=== PATIENT | female | born 1950 | race Caucasian/White ===

== ENCOUNTER → 2016-08-25 | Outpatient (CLI) | payer MEDICARE, MEDICAID | LOC: RAD 16:57 | PROVIDERS: ATTEND Internal Medicine | DX: M26.609 Unspecified temporomandibular joint disorder, unspecified side (principal) | CPT/HCPCS: 70110 ==

== ENCOUNTER 2016-08-26 09:35 | Emergency (ER) | payer MEDICARE, MEDICAID ==
[2016-08-26] MEDS ORDERED: KETOROLAC TROMETHAMINE 60 MG/2 ML SDV IM ONE (11:24)
--- NOTE | 2016-08-26 11:48 | ER Document Report ---
HPI - HPI Patient complains to provider of: TMJ pain Onset: Last week Onset/Duration: Persistent Quality of pain: Sharp Pain Level: 4 Context: Patient complains of right-sided jaw TMJ pain for the past week. Patient saw her primary doctor for this complaint recently had an outpatient x-ray on [place]. [place] any new injury. Patient states that her doctor has taken her off of her Tylenol with Codeine, and previously took her off hydrocodone as well as Percocet. Patient is requesting a Toradol injection, as these have helped her pain in the past. Associated Symptoms: Other - Right jaw pain Exacerbated by: Movement Relieved by: Denies Similar symptoms previously: Yes Recently seen / treated by doctor: Yes - ROS ROS below otherwise negative: Yes Systems Reviewed and Negative: Yes All other systems reviewed and negative - CONSTITUTIONAL Constitutional: DENIES: Fever, Chills - EENT Notes: Right TMJ pain - NEURO Neurology: DENIES: Weakness - CARDIOVASCULAR Cardiovascular: DENIES: Chest pain - RESPIRATORY Respiratory: DENIES: Coughing - GASTROINTESTINAL Gastrointestinal: DENIES: Patient vomiting - REPRODUCTIVE Reproductive: DENIES: : - MUSCULOSKELETAL Musculoskeletal: DENIES: Extremity pain, Back Pain, Neck Pain - DERM Skin Color: Normal Skin Problems: None Past Medical History - General Information source: Patient - Social History Smoking Status: Never Smoker Frequency of alcohol use: None Drug Abuse: None Family History: Arthritis, CAD, CVA, DM, Hyperlipidemia, Hypertension, Malignancy, Thyroid Disfunction Patient has suicidal ideation: No Patient has homicidal ideation: No - Past Medical History Cardiac Medical History: Reports: Hx Hypertension, Hx Peripheral Vascular Disease Denies: Hx Congestive Heart Failure, Hx Coronary Artery Disease, Hx Heart Attack Pulmonary Medical History: Reports: Hx Asthma Denies: Hx Bronchitis, Hx COPD, Hx Pneumonia, Hx Tuberculosis Neurological Medical History: Denies: Hx Cerebrovascular Accident, Hx Seizures GI Medical History: Reports: Hx Crohn's Disease, Hx Diverticulitis, Hx Gastroesophageal Reflux Disease, Hx Hiatal Hernia, Hx Irritable Bowel, Hx Ulcer. Denies: Hx Hepatitis Musculoskeltal Medical History: Reports Hx Arthritis - rheumatoid, DDD, Reports Hx Musculoskeletal Deformity, Reports Hx Musculoskeletal Trauma Psychiatric Medical History: Reports: Hx Anxiety, Hx Depression Infectious Medical History: Denies: Hx Hepatitis Past Surgical History: Reports: Hx Abdominal Surgery - small intestine removal, Hx Appendectomy, Hx Bowel Surgery - small intestine, Hx Breast Surgery - biopsy , Hx Hysterectomy, Hx Neurologic Surgery - brain tumor removed, Hx Tonsillectomy. Denies: Hx Mastectomy, Hx Open Heart Surgery, Hx Pacemaker - Immunizations Immunizations up to date: Yes Hx Diphtheria, Pertussis, Tetanus Vaccination: Yes - 09/2010 Hx Pneumococcal Vaccination: 08/24/10 Vertical Provider Document - CONSTITUTIONAL Agree With Documented VS: Yes Exam Limitations: No Limitations General Appearance: WD/WN, No Apparent Distress - INFECTION CONTROL TRAVEL OUTSIDE OF THE [place] IN LAST 30 DAYS: No - HEENT HEENT: Atraumatic, Normocephalic Notes: Tenderness with palpation of right TMJ joint, no crepitus, no concern for dislocation. No tenderness with dental caries. - NECK Neck: Normal Inspection, Supple. negative: Lymphadenopathy-Left, Lymphadenopathy-Right - RESPIRATORY Respiratory: Breath Sounds Normal, No Respiratory Distress O2 Sat by Pulse Oximetry: 100 - CARDIOVASCULAR Cardiovascular: Regular Rate, Regular Rhythm, No Murmur - BACK Back: Normal Inspection - MUSCULOSKELETAL/EXTREMETIES Musculoskeletal/Extremeties: MAEW - NEURO Level of Consciousness: Awake, Alert, Appropriate Motor/Sensory: No Motor Deficit - DERM Integumentary: Warm, Dry, No Rash Course - Vital Signs Vital signs: Temp Pulse Resp BP Pulse Ox 97.3 F 59 L 16 124/68 100 08/26/16 09:53 08/26/16 09:53 08/26/16 09:53 08/26/16 09:53 08/26/16 09:53 Discharge - Discharge Clinical Impression: TMJ arthralgia Qualifiers: Laterality: right Qualified Code(s): M26.621 - Arthralgia of right temporomandibular joint Condition: Stable Disposition: HOME, SELF-CARE Instructions: Temporomandibular Joint Syndrome ([facility]), Toradol Injection ([facility]) Additional Instructions: Return immediately for any new or worsening symptoms Followup with your primary care provider, call tomorrow to make a followup appointment Soft diet Referrals: ARACELI CORTEZ MD [Primary Care Provider] - Follow up tomorrow
[2016-08-26 12:25] VITALS: BP 124/85
== END 2016-08-26 11:58 | disposition home or self-care (01) ==
LOC: ER 09:35
DX: M26.621 Arthralgia of right temporomandibular joint (principal); R68.84 Jaw pain; Z79.899 Other long term (current) drug therapy
CPT/HCPCS: 99283; 96372; J1885

== ENCOUNTER 2016-08-27 13:47 | Emergency (ER) | payer MEDICAID, MEDICARE ==
[2016-08-27 14:07] VITALS: BP 143/67
--- NOTE | 2016-08-27 14:07 | ER Document Report ---
ED Medical Screen (RME) - General Chief Complaint: Headache Stated Complaint: INJECTION Time seen by provider: 14:04 Mode of Arrival: Ambulatory Information source: Patient Notes: 65 yo female presents to ed for chronic pain, headache chronic, achy all over TRAVEL OUTSIDE OF THE [place] IN LAST 30 DAYS: No - HPI Onset: Other - chronic Onset/Duration: Persistent Quality of pain: Sharp Severity: Moderate Pain Level: 3 Associated Symptoms: Headache, Other - body achesa Exacerbated by: Denies Relieved by: Denies Similar symptoms previously: Yes Recently seen / treated by doctor: Yes - Related Data Smoking: Non-smoker Frequency of alcohol use: None Drug Abuse: None Allergies/Adverse Reactions: Penicillins Allergy (Severe, Verified 08/15/16 08:46) Anaphylaxis Sulfa (Sulfonamide Antibiotics) Allergy (Intermediate, Verified 08/15/16 08:46) iching, nausea ciprofloxacin [From Cipro] Allergy (Mild, Verified 08/15/16 08:46) itching, nausea meperidine HCl [From Demerol] Allergy (Mild, Verified 08/15/16 08:46) heart palpitations Past Medical History - Past Medical History Cardiac Medical History: Reports: Hx Hypertension, Hx Peripheral Vascular Disease Denies: Hx Congestive Heart Failure, Hx Coronary Artery Disease, Hx Heart Attack Pulmonary Medical History: Reports: Hx Asthma Denies: Hx Bronchitis, Hx COPD, Hx Pneumonia, Hx Tuberculosis Neurological Medical History: Denies: Hx Cerebrovascular Accident, Hx Seizures GI Medical History: Reports: Hx Crohn's Disease, Hx Diverticulitis, Hx Gastroesophageal Reflux Disease, Hx Hiatal Hernia, Hx Irritable Bowel, Hx Ulcer. Denies: Hx Hepatitis Musculoskeltal Medical History: Reports Hx Arthritis - rheumatoid, DDD, Reports Hx Musculoskeletal Deformity, Reports Hx Musculoskeletal Trauma Psychiatric Medical History: Reports: Hx Anxiety, Hx Depression Infectious Medical History: Denies: Hx Hepatitis Past Surgical History: Reports: Hx Abdominal Surgery - small intestine removal, Hx Appendectomy, Hx Bowel Surgery - small intestine, Hx Breast Surgery - biopsy , Hx Hysterectomy, Hx Neurologic Surgery - brain tumor removed, Hx Tonsillectomy. Denies: Hx Mastectomy, Hx Open Heart Surgery, Hx Pacemaker - Immunizations Immunizations up to date: Yes Hx Diphtheria, Pertussis, Tetanus Vaccination: Yes - 09/2010
--- NOTE | 2016-08-27 14:27 | ER Document Report ---
HPI - HPI Pain Level: 3 - REPRODUCTIVE Reproductive: DENIES: : - DERM Skin Color: Normal Past Medical History - General Information source: Patient - Social History Smoking Status: Never Smoker Chew tobacco use (# tins/day): No Frequency of alcohol use: None Drug Abuse: None Family History: Arthritis, CAD, CVA, DM, Hyperlipidemia, Hypertension, Malignancy, Thyroid Disfunction Patient has suicidal ideation: No Patient has homicidal ideation: No - Past Medical History Cardiac Medical History: Reports: Hx Hypertension, Hx Peripheral Vascular Disease Denies: Hx Congestive Heart Failure, Hx Coronary Artery Disease, Hx Heart Attack Pulmonary Medical History: Reports: Hx Asthma Denies: Hx Bronchitis, Hx COPD, Hx Pneumonia, Hx Tuberculosis Neurological Medical History: Denies: Hx Cerebrovascular Accident, Hx Seizures GI Medical History: Reports: Hx Crohn's Disease, Hx Diverticulitis, Hx Gastroesophageal Reflux Disease, Hx Hiatal Hernia, Hx Irritable Bowel, Hx Ulcer. Denies: Hx Hepatitis Musculoskeltal Medical History: Reports Hx Arthritis - rheumatoid, DDD, Reports Hx Musculoskeletal Deformity, Reports Hx Musculoskeletal Trauma Psychiatric Medical History: Reports: Hx Anxiety, Hx Depression Infectious Medical History: Denies: Hx Hepatitis Past Surgical History: Reports: Hx Abdominal Surgery - small intestine removal, Hx Appendectomy, Hx Bowel Surgery - small intestine, Hx Breast Surgery - biopsy , Hx Hysterectomy, Hx Neurologic Surgery - brain tumor removed, Hx Tonsillectomy. Denies: Hx Mastectomy, Hx Open Heart Surgery, Hx Pacemaker - Immunizations Immunizations up to date: Yes Hx Diphtheria, Pertussis, Tetanus Vaccination: Yes - 09/2010 Hx Pneumococcal Vaccination: 08/24/10 Vertical Provider Document - INFECTION CONTROL TRAVEL OUTSIDE OF THE [place] IN LAST 30 DAYS: No - RESPIRATORY O2 Sat by Pulse Oximetry: 100 Course - Vital Signs Vital signs: Temp Pulse Resp BP Pulse Ox 98.1 F 70 16 143/67 H 100 08/27/16 14:05 08/27/16 14:05 08/27/16 14:05 08/27/16 14:05 08/27/16 14:05
--- NOTE | 2016-08-27 14:29 | ER Document Report ---
ED Eye Complaint - General Chief Complaint: Other Stated Complaint: INJECTION Time seen by provider: 14:28 Mode of Arrival: Ambulatory Information source: Patient Notes: 65-year-old female complaining of blurred vision to her right eye and right TMJ pain. She saw Dr. Radha Palacio in his office today who recommended coming to the emergency room and he wrote on a prescription that the patient needs an injection.. She wants to know what we are going to due with her inability to see out of her right eye. TRAVEL OUTSIDE OF THE [place] IN LAST 30 DAYS: No - Related Data Allergies/Adverse Reactions: Penicillins Allergy (Severe, Verified 08/27/16 14:04) Anaphylaxis Sulfa (Sulfonamide Antibiotics) Allergy (Intermediate, Verified 08/27/16 14:04) iching, nausea ciprofloxacin [From Cipro] Allergy (Mild, Verified 08/27/16 14:04) itching, nausea meperidine HCl [From Demerol] Allergy (Mild, Verified 08/27/16 14:04) heart palpitations Past Medical History - General Information source: Patient - Social History Smoking Status: Never Smoker Chew tobacco use (# tins/day): No Frequency of alcohol use: None Drug Abuse: None Lives with: Alone Family History: Arthritis, CAD, CVA, DM, Hyperlipidemia, Hypertension, Malignancy, Thyroid Disfunction Patient has suicidal ideation: No Patient has homicidal ideation: No - Past Medical History Cardiac Medical History: Reports: Hx Hypertension, Hx Peripheral Vascular Disease Pulmonary Medical History: Reports: Hx Asthma GI Medical History: Reports: Hx Crohn's Disease, Hx Diverticulitis, Hx Gastroesophageal Reflux Disease, Hx Hiatal Hernia, Hx Irritable Bowel, Hx Ulcer Musculoskeltal Medical History: Reports Hx Arthritis - rheumatoid, DDD, Reports Hx Musculoskeletal Deformity, Reports Hx Musculoskeletal Trauma Psychiatric Medical History: Reports: Hx Anxiety, Hx Depression Past Surgical History: Reports: Hx Abdominal Surgery - small intestine removal, Hx Appendectomy, Hx Bowel Surgery - small intestine, Hx Breast Surgery - biopsy , Hx Hysterectomy, Hx Neurologic Surgery - brain tumor removed, Hx Tonsillectomy - Immunizations Immunizations up to date: Yes Hx Diphtheria, Pertussis, Tetanus Vaccination: Yes - 09/2010 Hx Pneumococcal Vaccination: 08/24/10 Review of Systems - Review of Systems Constitutional: No symptoms reported EENT: See HPI Cardiovascular: No symptoms reported Respiratory: No symptoms reported Gastrointestinal: No symptoms reported Genitourinary: No symptoms reported Female Genitourinary: No symptoms reported Musculoskeletal: See HPI Skin: No symptoms reported Hematologic/Lymphatic: No symptoms reported Neurological/Psychological: No symptoms reported Physical Exam - Vital signs Vitals: Temp Pulse Resp BP Pulse Ox 98.1 F 70 16 143/67 H 100 08/27/16 14:05 08/27/16 14:05 08/27/16 14:05 08/27/16 14:05 08/27/16 14:05 Interpretation: Normal - General General appearance: Appears well, Alert In distress: None - HEENT Head: Normocephalic, Atraumatic Eyes: Normal Conjunctiva: Normal. No: Injected Cornea: No: Flourescein stain uptake, Opacified Extraocular movements intact: Yes Pupils: PERRL Anterior chamber: Normal Nerve palsy: No Neck: Supple Notes: tender right TMJ joint - Respiratory Respiratory status: No respiratory distress Chest status: Nontender Breath sounds: Normal Chest palpation: Normal - Cardiovascular Rhythm: Regular Heart sounds: Normal auscultation Murmur: No - Abdominal Inspection: Normal Distension: No distension Bowel sounds: Normal Tenderness: Nontender Organomegaly: No organomegaly - Back Back: Normal, Nontender - Extremities General upper extremity: Normal inspection, Nontender, Normal color, Normal ROM , Normal temperature General lower extremity: Normal inspection, Nontender, Normal color, Normal ROM , Normal temperature, Normal weight bearing. No: Guille's sign - Neurological Neuro grossly intact: Yes Cognition: Normal Orientation: AAOx4 Ji Coma Scale Eye Opening: Spontaneous Ji Coma Scale Verbal: Oriented Ji Coma Scale Motor: Obeys Commands Excello Coma Scale Total: 15 Speech: Normal Motor strength normal: LUE, RUE, LLE, RLE Sensory: Normal - Psychological Associated symptoms: Normal affect, Normal mood - Skin Skin Temperature: Warm Skin Moisture: Dry Skin Color: Normal Course - Re-evaluation Re-evalutation: 08/27/16 15:55 Patient states that her vision was starting to come back before she got the Toradol shot. She had 20/200 in the right eye and 20/50 in the left eye. She saw Dr. Chung last week who was a little concerned about her eye pressures but did not start her on any glaucoma medicine at this time. Her Nguyễn-Pen eye pressure on the right eye was 17.95 in the left eye 18.95. I instructed the patient that she needs to call and get an appointment with Dr. Buck next week and not wait until 09/21 which is when her recheck his. Her CT of the head is negative. He states her TMJ pain is relieved with the Toradol. - Vital Signs Vital signs: Temp Pulse Resp BP Pulse Ox 98.1 F 70 16 143/67 H 100 08/27/16 14:05 08/27/16 14:05 08/27/16 14:05 08/27/16 14:05 08/27/16 14:05 Discharge - Discharge Clinical Impression: TMJ arthralgia, right eye decreased vision Condition: Good Disposition: HOME, SELF-CARE Instructions: Temporomandibular Joint Syndrome ([facility]) Additional Instructions: call dr. buck and see him next week for recheck, do not wait until the . to er if worse Referrals: ARACELI CORTEZ MD [Primary Care Provider] - Follow up as needed TYLER BUCK DO [ACTIVE STAFF] - 08/30/16
[2016-08-27] MEDS ORDERED: KETOROLAC TROMETHAMINE 60 MG/2 ML SDV IM ONE (14:34)
[2016-08-27] MEDS ORDERED: FAMOTIDINE 20 MG TABLET PO ONE (16:10)
== END 2016-08-27 16:27 | disposition home or self-care (01) ==
LOC: ER 13:47
DX: H53.8 Other visual disturbances (principal); M26.621 Arthralgia of right temporomandibular joint; I10 Essential (primary) hypertension; J45.909 Unspecified asthma, uncomplicated; Z88.1 Allergy status to other antibiotic agents; Z88.2 Allergy status to sulfonamides; Z88.5 Allergy status to narcotic agent; Z87.892 Personal history of anaphylaxis; Z88.0 Allergy status to penicillin
CPT/HCPCS: 99284; 96372; 70450; J3490; J1885

== ENCOUNTER 2016-08-29 20:34 | Emergency (ER) | payer MEDICARE, MEDICAID ==
[2016-08-29] MEDS ORDERED: DIAZEPAM 5 MG TABLET PO ONE (22:11)
[2016-08-29 22:30] LABS: ABSOLUTE EOSINOPHILS # (AUTO) 0.5 10^3/uL (0.0-0.6); ABSOLUTE LYMPHOCYTES (AUTO) 1.6 10^3/uL (0.5-4.7); ABSOLUTE MONOCYTES (AUTO) 0.6 10^3/uL (0.1-1.4); ABSOLUTE NEUT (AUTO) 5.7 10^3/uL (1.7-8.2); BASOPHILS % (AUTO) 0.6 % (0-2); EOSINOPHILS % (AUTO) 5.4 % (0-6); HEMATOCRIT 38.1 % (36.0-47.0); HEMOGLOBIN 12.9 g/dL (12.0-15.5); HGB HCT DIFFERENCE 0.6; LYMPHOCYTES % (AUTO) 18.9 % (13-45); MEAN CORPUSCULAR HEMOGLOBIN 32.1 pg (27.0-33.4); MEAN CORPUSCULAR HGB CONC 33.9 g/dL (32.0-36.0); MEAN CORPUSCULAR VOLUME 95 fl (80-97); MONOCYTES % (AUTO) 7.1 % (3-13); RED BLOOD COUNT 4.03 10^6/uL (3.72-5.28); RED CELL DISTRIBUTION WIDTH 13.9 % (11.5-14.0); WHITE BLOOD COUNT 8.4 10^3/uL (4.0-10.5)
[2016-08-29 22:50] LABS: ANION GAP 10 (5-19); BLOOD UREA NITROGEN 5 mg/dL (7-20); CALCIUM 9.2 mg/dL (8.4-10.2); CARBON DIOXIDE 24 mmol/L (22-30); CHLORIDE 106 mmol/L (98-107); CREATININE RESULT 0.62 mg/dL (0.52-1.25); GLUCOSE 83 mg/dL (75-110); POTASSIUM 4.2 mmol/L (3.6-5.0); SODIUM 140.2 mmol/L (137-145)
--- NOTE | 2016-08-29 23:10 | ER Document Report ---
ED General - General Chief Complaint: Rectal Bleeding Stated Complaint: RECTAL BLEEDING Notes: Patient is a 65-year-old female well-known to this emergency department who presents for concerns of having a bloody bowel movement just prior to arrival. Patient states that she "has to use my finger to clean out my rectum at least 3- 4 times a day. You have to use these special soft gloves to prevent irritation" . Patient has a very unusual affect and repeatedly tells me the manner in which to perform an appropriate rectal exam on her using gloves that she has brought from home. She notes that she only had one bloody bowel movement just prior to arrival but has a history of the same in the past. She denies any focal abdominal pain. No additional constitutional symptoms. She has not spoken to her primary care physician regarding today's episode. She has not noted that anything seems to trigger today's episode and nothing improves her symptoms. TRAVEL OUTSIDE OF THE [place] IN LAST 30 DAYS: No - HPI Onset: Just prior to arrival Onset/Duration: Sudden Quality of pain: No pain Severity: None Pain Level: Denies Associated symptoms: None Exacerbated by: Denies Relieved by: Denies Similar symptoms previously: Yes Recently seen / treated by doctor: No - Related Data Allergies/Adverse Reactions: Penicillins Allergy (Severe, Verified 08/27/16 14:04) Anaphylaxis Sulfa (Sulfonamide Antibiotics) Allergy (Intermediate, Verified 08/27/16 14:04) iching, nausea ciprofloxacin [From Cipro] Allergy (Mild, Verified 08/27/16 14:04) itching, nausea meperidine HCl [From Demerol] Allergy (Mild, Verified 08/27/16 14:04) heart palpitations Past Medical History - General Information source: Patient - Social History Smoking Status: Never Smoker Frequency of alcohol use: None Drug Abuse: None Lives with: Alone Family History: Arthritis, CAD, CVA, DM, Hyperlipidemia, Hypertension, Malignancy, Thyroid Disfunction - Past Medical History Cardiac Medical History: Reports: Hx Hypertension, Hx Peripheral Vascular Disease Denies: Hx Congestive Heart Failure, Hx Coronary Artery Disease, Hx Heart Attack Pulmonary Medical History: Reports: Hx Asthma Denies: Hx Bronchitis, Hx COPD, Hx Pneumonia, Hx Tuberculosis Neurological Medical History: Denies: Hx Cerebrovascular Accident, Hx Seizures GI Medical History: Reports: Hx Crohn's Disease, Hx Diverticulitis, Hx Gastroesophageal Reflux Disease, Hx Hiatal Hernia, Hx Irritable Bowel, Hx Ulcer. Denies: Hx Hepatitis Musculoskeltal Medical History: Reports Hx Arthritis - rheumatoid, DDD, Reports Hx Musculoskeletal Deformity, Reports Hx Musculoskeletal Trauma Psychiatric Medical History: Reports: Hx Anxiety, Hx Depression Infectious Medical History: Denies: Hx Hepatitis Past Surgical History: Reports: Hx Abdominal Surgery - small intestine removal, Hx Appendectomy, Hx Bowel Surgery - small intestine, Hx Breast Surgery - biopsy , Hx Hysterectomy, Hx Neurologic Surgery - brain tumor removed, Hx Tonsillectomy. Denies: Hx Mastectomy, Hx Open Heart Surgery, Hx Pacemaker - Immunizations Immunizations up to date: Yes Hx Diphtheria, Pertussis, Tetanus Vaccination: Yes - 09/2010 Hx Pneumococcal Vaccination: 08/24/10 Review of Systems - Review of Systems Notes: Constitutional: Negative for fever. HENT: Negative for sore throat. Eyes: Negative for visual changes. Cardiovascular: Negative for chest pain. Respiratory: Negative for shortness of breath. Gastrointestinal: Negative for abdominal pain, vomiting or diarrhea. Positive for a bloody bowel movement Genitourinary: Negative for dysuria. Musculoskeletal: Negative for back pain. Skin: Negative for rash. Neurological: Negative for headaches, weakness or numbness. 10 point ROS negative except as marked above and in HPI. Physical Exam - Vital signs Vitals: Temp Pulse Resp BP Pulse Ox 98.6 F 69 16 117/61 100 08/29/16 23:38 08/29/16 23:38 08/29/16 23:38 08/29/16 23:38 08/29/16 23:38 Interpretation: Normal Notes: PHYSICAL EXAMINATION: GENERAL: Well-appearing, well-nourished and in no acute distress. HEAD: Atraumatic, normocephalic. EYES: Pupils equal round and reactive to light, extraocular movements intact, sclera anicteric, conjunctiva are normal. ENT: nares patent, oropharynx clear without exudates. Moist mucous membranes. NECK: Normal range of motion, supple without lymphadenopathy LUNGS: Breath sounds clear to auscultation bilaterally and equal. No wheezes rales or rhonchi. HEART: Regular rate and rhythm without murmurs ABDOMEN: Soft, nontender, normoactive bowel sounds. No guarding, no rebound. No masses appreciated. Rectal: No blood. Brown stool. No masses on palpation EXTREMITIES: Normal range of motion, no pitting or edema. No cyanosis. NEUROLOGICAL: No focal neurological deficits. Moves all extremities spontaneously and on command. PSYCH: Normal mood, normal affect. SKIN: Warm, Dry, normal turgor, no rashes or lesions noted. Course - Re-evaluation Re-evalutation: 08/30/16 03:51 Patient presents with concerns of rectal bleeding. There is absolutely no blood on her digital rectal exam. Moreover her hemoglobin is completely normal. Unclear if patient has had actually had bleeding given the absence of any blood on rectal examination as well as normal hemoglobin and absence of tachycardia or hypotension. Remainder of her exam is unremarkable. Patient has already been seen in this emergency department 4 times in 2017 and had over 20 visits last year for various pain-related complaints. At this time do not suspect any acute life-threatening pathology and patient was observed here in this emergency department for over 2 hours for any additional bloody bowel movements. At this time will discharge with return precautions and follow-up recommendations. Verbal discharge instructions given a the bedside and opportunity for questions given. Medication warnings reviewed. Patient is in agreement with this plan and has verbalized understanding of return precautions and the need for primary care follow-up in the next 24-72 hours. - Vital Signs Vital signs: Temp Pulse Resp BP Pulse Ox 98.6 F 69 16 117/61 100 08/29/16 23:38 08/29/16 23:38 08/29/16 23:38 08/29/16 23:38 08/29/16 23:38 - Laboratory Result Diagrams: 08/29/16 22:20 08/29/16 22:20 Laboratory results interpreted by me: 08/29/16 22:20 BUN 5 L Discharge - Discharge Clinical Impression: Rectal hemorrhage Condition: Good Disposition: HOME, SELF-CARE Additional Instructions: Please return if you have further rectal bleeding, increased abdominal pain, or any additional concerns. Please follow-up with your primary care physician in the next 1-2 days. Your blood counts are normal today and you had no evidence of bleeding on your rectal exam. Referrals: ARACELI CORTEZ MD [Primary Care Provider] - Follow up as needed
[2016-08-30 00:15] VITALS: BP 117/61
== END 2016-08-29 23:40 | disposition home or self-care (01) ==
LOC: ER 20:34
DX: K62.5 Hemorrhage of anus and rectum (principal); I10 Essential (primary) hypertension; J45.909 Unspecified asthma, uncomplicated; Z88.0 Allergy status to penicillin; Z88.2 Allergy status to sulfonamides; Z88.1 Allergy status to other antibiotic agents; Z88.5 Allergy status to narcotic agent; Z87.19 Personal history of other diseases of the digestive system; Z90.49 Acquired absence of other specified parts of digestive tract
CPT/HCPCS: 99283; 36415; 85025; 80048; A9270

== ENCOUNTER 2016-09-03 18:55 | Emergency (ER) | payer MEDICARE, MEDICAID ==
--- NOTE | 2016-09-03 19:02 | ER Document Report ---
ED Medical Screen (RME) - General Stated Complaint: ANXIETY Mode of Arrival: Medic Information source: Emergency Med Personnel Notes: Patient presents to the ED via EMS for c/o fast heart rate, blue right foot, diverticulitis flare. Upon EMS her arrival patient's heart rate was 114 but decreased to 88 upon placement in the stretcher. EMS reports foot was not blue upon assessment. I greeted and performed a rapid initial assessment of this patient. Comprehensive ED assessment and evaluation of the patient, analysis of test results and completion of the medical decision making process will be conducted by additional ED providers. TRAVEL OUTSIDE OF THE [place] IN LAST 30 DAYS: No - Related Data Allergies/Adverse Reactions: Penicillins Allergy (Severe, Verified 08/27/16 14:04) Anaphylaxis Sulfa (Sulfonamide Antibiotics) Allergy (Intermediate, Verified 08/27/16 14:04) iching, nausea ciprofloxacin [From Cipro] Allergy (Mild, Verified 08/27/16 14:04) itching, nausea meperidine HCl [From Demerol] Allergy (Mild, Verified 08/27/16 14:04) heart palpitations Past Medical History - Past Medical History Cardiac Medical History: Reports: Hx Hypertension, Hx Peripheral Vascular Disease Denies: Hx Congestive Heart Failure, Hx Coronary Artery Disease, Hx Heart Attack Pulmonary Medical History: Reports: Hx Asthma Denies: Hx Bronchitis, Hx COPD, Hx Pneumonia, Hx Tuberculosis Neurological Medical History: Denies: Hx Cerebrovascular Accident, Hx Seizures GI Medical History: Reports: Hx Crohn's Disease, Hx Diverticulitis, Hx Gastroesophageal Reflux Disease, Hx Hiatal Hernia, Hx Irritable Bowel, Hx Ulcer. Denies: Hx Hepatitis Musculoskeltal Medical History: Reports Hx Arthritis - rheumatoid, DDD, Reports Hx Musculoskeletal Deformity, Reports Hx Musculoskeletal Trauma Psychiatric Medical History: Reports: Hx Anxiety, Hx Depression Infectious Medical History: Denies: Hx Hepatitis Past Surgical History: Reports: Hx Abdominal Surgery - small intestine removal, Hx Appendectomy, Hx Bowel Surgery - small intestine, Hx Breast Surgery - biopsy , Hx Hysterectomy, Hx Neurologic Surgery - brain tumor removed, Hx Tonsillectomy. Denies: Hx Mastectomy, Hx Open Heart Surgery, Hx Pacemaker - Immunizations Immunizations up to date: Yes Hx Diphtheria, Pertussis, Tetanus Vaccination: Yes - 09/2010
[2016-09-03 22:49] LABS: ABSOLUTE EOSINOPHILS # (AUTO) 0.5 10^3/uL (0.0-0.6); ABSOLUTE LYMPHOCYTES (AUTO) 1.9 10^3/uL (0.5-4.7); ABSOLUTE MONOCYTES (AUTO) 0.7 10^3/uL (0.1-1.4); ABSOLUTE NEUT (AUTO) 6.3 10^3/uL (1.7-8.2); BASOPHILS % (AUTO) 0.4 % (0-2); EOSINOPHILS % (AUTO) 5.1 % (0-6); HEMOGLOBIN 12.4 g/dL (12.0-15.5); HGB HCT DIFFERENCE 0.2; LYMPHOCYTES % (AUTO) 20.3 % (13-45); MEAN CORPUSCULAR HEMOGLOBIN 32.2 pg (27.0-33.4); MEAN CORPUSCULAR HGB CONC 33.6 g/dL (32.0-36.0); MEAN CORPUSCULAR VOLUME 96 fl (80-97); MONOCYTES % (AUTO) 7.6 % (3-13); RED BLOOD COUNT 3.86 10^6/uL (3.72-5.28); RED CELL DISTRIBUTION WIDTH 13.9 % (11.5-14.0); SEGMENTED NEUTROPHILS % (AUTO) 66.6 % (42-78); WHITE BLOOD COUNT 9.5 10^3/uL (4.0-10.5)
[2016-09-03 22:59] LABS: ALANINE AMINOTRANSFERASE 22 U/L (9-52); ALBUMIN 3.8 g/dL (3.5-5.0); ALKALINE PHOSPHATASE 62 U/L (38-126); ANION GAP 12 (5-19); ASPARTATE AMINO TRANSFERASE 25 U/L (14-36); BILIRUBIN,TOTAL 0.3 mg/dL (0.2-1.3); BLOOD UREA NITROGEN 9 mg/dL (7-20); CALCIUM 9.2 mg/dL (8.4-10.2); CARBON DIOXIDE 26 mmol/L (22-30); CHLORIDE 100 mmol/L (98-107); CREATININE RESULT 0.63 mg/dL (0.52-1.25); GLUCOSE 87 mg/dL (75-110); POTASSIUM 3.9 mmol/L (3.6-5.0); SODIUM 137.8 mmol/L (137-145); TOTAL PROTEIN 6.7 g/dL (6.3-8.2)
--- NOTE | 2016-09-03 23:36 | ER Document Report ---
ED General - General Chief Complaint: Abdominal Pain Stated Complaint: ANXIETY Time seen by provider: 23:35 Mode of Arrival: Medic Information source: Patient TRAVEL OUTSIDE OF THE [place] IN LAST 30 DAYS: No - HPI Patient complains to provider of: right foot blue, elevated heart rate Onset: Just prior to arrival Onset/Duration: Sudden Quality of pain: No pain Associated symptoms: None Exacerbated by: Denies Relieved by: Denies Similar symptoms previously: No Recently seen / treated by doctor: Yes Notes: Patient is a 65-year-old female who is well-known to this emergency room as she presents on nearly a daily basis for various complaints, today's complaint is that her right foot turned blue for approximately half a second, she called EMS to the house and when they arrived they noted her heart rate to be 114, this actually went down to a normal heart rate in the 80s upon placement in the ambulance, she denies any injury or trauma, she denies any pain at the present time, she denies any history of having symptoms like this to her foot previously , symptoms are completely resolved at time of my initial evaluation - Related Data Allergies/Adverse Reactions: Penicillins Allergy (Severe, Verified 08/27/16 14:04) Anaphylaxis Sulfa (Sulfonamide Antibiotics) Allergy (Intermediate, Verified 08/27/16 14:04) iching, nausea ciprofloxacin [From Cipro] Allergy (Mild, Verified 08/27/16 14:04) itching, nausea meperidine HCl [From Demerol] Allergy (Mild, Verified 08/27/16 14:04) heart palpitations Past Medical History - General Information source: Emergency Med Personnel - Social History Smoking Status: Unknown if Ever Smoked Chew tobacco use (# tins/day): No Frequency of alcohol use: None Drug Abuse: None Family History: Arthritis, CAD, CVA, DM, Hyperlipidemia, Hypertension, Malignancy, Thyroid Disfunction Patient has suicidal ideation: No Patient has homicidal ideation: No - Past Medical History Cardiac Medical History: Reports: Hx Hypertension, Hx Peripheral Vascular Disease Denies: Hx Congestive Heart Failure, Hx Coronary Artery Disease, Hx Heart Attack Pulmonary Medical History: Reports: Hx Asthma Denies: Hx Bronchitis, Hx COPD, Hx Pneumonia, Hx Tuberculosis Neurological Medical History: Denies: Hx Cerebrovascular Accident, Hx Seizures Renal/ Medical History: Denies: Hx Peritoneal Dialysis GI Medical History: Reports: Hx Crohn's Disease, Hx Diverticulitis, Hx Gastroesophageal Reflux Disease, Hx Hiatal Hernia, Hx Irritable Bowel, Hx Ulcer. Denies: Hx Hepatitis Musculoskeltal Medical History: Reports Hx Arthritis - rheumatoid, DDD, Reports Hx Musculoskeletal Deformity, Reports Hx Musculoskeletal Trauma Psychiatric Medical History: Reports: Hx Anxiety, Hx Depression Infectious Medical History: Denies: Hx Hepatitis Past Surgical History: Reports: Hx Abdominal Surgery - small intestine removal, Hx Appendectomy, Hx Bowel Surgery - small intestine, Hx Breast Surgery - biopsy , Hx Hysterectomy, Hx Neurologic Surgery - brain tumor removed, Hx Tonsillectomy. Denies: Hx Mastectomy, Hx Open Heart Surgery, Hx Pacemaker - Immunizations Immunizations up to date: Yes Hx Diphtheria, Pertussis, Tetanus Vaccination: Yes - 09/2010 Hx Pneumococcal Vaccination: 08/24/10 Review of Systems - Review of Systems Constitutional: No symptoms reported EENT: No symptoms reported Cardiovascular: See HPI Respiratory: No symptoms reported Gastrointestinal: No symptoms reported Genitourinary: No symptoms reported Female Genitourinary: No symptoms reported Musculoskeletal: No symptoms reported Skin: See HPI Hematologic/Lymphatic: No symptoms reported Neurological/Psychological: No symptoms reported -: Yes All other systems reviewed and negative Physical Exam - Vital signs Vitals: Temp Pulse Resp BP Pulse Ox 98.2 F 90 16 148/84 H 100 09/03/16 23:58 09/03/16 23:58 09/03/16 23:58 09/03/16 23:58 09/03/16 23:58 Interpretation: Normal - General General appearance: Appears well, Alert - HEENT Head: Normocephalic, Atraumatic Eyes: Normal Pupils: PERRL - Respiratory Respiratory status: No respiratory distress Chest status: Nontender Breath sounds: Normal Chest palpation: Normal - Cardiovascular Rhythm: Regular Heart sounds: Normal auscultation Murmur: No - Abdominal Inspection: Normal Distension: No distension Bowel sounds: Normal Tenderness: Nontender Organomegaly: No organomegaly - Back Back: Normal, Nontender - Extremities General upper extremity: Normal inspection, Nontender, Normal color, Normal ROM , Normal temperature General lower extremity: Normal inspection, Nontender, Normal color, Normal ROM , Normal temperature, Normal weight bearing. No: Guille's sign Foot: Other - Examination of right foot is completely normal, brisk capillary refill, 2+ DP pulses, foot is warm and normal color, full range of motion, no tenderness - Neurological Neuro grossly intact: Yes Cognition: Normal Orientation: AAOx4 Ji Coma Scale Eye Opening: Spontaneous [place] Coma Scale Verbal: Oriented [place] Coma Scale Motor: Obeys Commands Ji Coma Scale Total: 15 Speech: Normal Motor strength normal: LUE, RUE, LLE, RLE Sensory: Normal - Psychological Associated symptoms: Anxious, Tangential speech - Skin Skin Temperature: Warm Skin Moisture: Dry Skin Color: Normal Course - Re-evaluation Re-evalutation: 09/04/16 01:44 Patient was discharged with instructions to follow-up with her primary care provider or return if symptoms worsen, patient acknowledges understanding and agreement with this plan - Vital Signs Vital signs: Temp Pulse Resp BP Pulse Ox 98.2 F 90 16 148/84 H 100 09/03/16 23:58 09/03/16 23:58 09/03/16 23:58 09/03/16 23:58 09/03/16 23:58 - Laboratory Result Diagrams: 09/03/16 22:26 09/03/16 22:26 Discharge - Discharge Clinical Impression: Palpitations Condition: Stable Disposition: HOME, SELF-CARE Instructions: Palpitations (Irregular or Rapid Heartrate) (REPLACED BY [facility]) Additional Instructions: Follow up with your primary care provider in one to 2 days. Return to the emergency room immediately if symptoms worsen or any additional concerns.
[2016-09-03 23:58] VITALS: BP 148/84
== END 2016-09-04 | disposition home or self-care (01) ==
LOC: ER 18:55
DX: R00.2 Palpitations (principal); I73.9 Peripheral vascular disease, unspecified; I10 Essential (primary) hypertension; Z88.1 Allergy status to other antibiotic agents; Z88.2 Allergy status to sulfonamides; Z88.5 Allergy status to narcotic agent; Z87.892 Personal history of anaphylaxis; Z88.0 Allergy status to penicillin
CPT/HCPCS: 36415; 80053; 85025; 99285

== ENCOUNTER → 2016-09-07 | Outpatient (CLI) | payer MEDICARE, MEDICAID ==
[2016-09-07 14:45] LABS: ABSOLUTE EOSINOPHILS # (AUTO) 0.4 10^3/uL (0.0-0.6); ABSOLUTE LYMPHOCYTES (AUTO) 1.5 10^3/uL (0.5-4.7); ABSOLUTE MONOCYTES (AUTO) 0.5 10^3/uL (0.1-1.4); ABSOLUTE NEUT (AUTO) 3.5 10^3/uL (1.7-8.2); BASOPHILS % (AUTO) 0.7 % (0-2); EOSINOPHILS % (AUTO) 7.5 % (0-6); HEMOGLOBIN 12.6 g/dL (12.0-15.5); HGB HCT DIFFERENCE -1.2; LYMPHOCYTES % (AUTO) 24.5 % (13-45); MEAN CORPUSCULAR HEMOGLOBIN 31.1 pg (27.0-33.4); MEAN CORPUSCULAR HGB CONC 32.3 g/dL (32.0-36.0); MEAN CORPUSCULAR VOLUME 97 fl (80-97); MONOCYTES % (AUTO) 8.4 % (3-13); RED BLOOD COUNT 4.04 10^6/uL (3.72-5.28); RED CELL DISTRIBUTION WIDTH 14.2 % (11.5-14.0); SEGMENTED NEUTROPHILS % (AUTO) 58.9 % (42-78)
[2016-09-07 15:08] LABS: ANION GAP 12 (5-19); BLOOD UREA NITROGEN 4 mg/dL (7-20); CALCIUM 9.4 mg/dL (8.4-10.2); CARBON DIOXIDE 25 mmol/L (22-30); CHLORIDE 102 mmol/L (98-107); CREATININE RESULT 0.67 mg/dL (0.52-1.25); GLUCOSE 90 mg/dL (75-110); POTASSIUM 4.5 mmol/L (3.6-5.0); SODIUM 139.1 mmol/L (137-145)
== END ==
LOC: OD 14:01
PROVIDERS: ATTEND Specialist
DX: D50.9 Iron deficiency anemia, unspecified (principal); K92.2 Gastrointestinal hemorrhage, unspecified; R10.9 Unspecified abdominal pain
CPT/HCPCS: 36415; 80048; 85025

== ENCOUNTER 2016-09-22 17:01 | Emergency (ER) | payer MEDICARE, MEDICAID ==
--- NOTE | 2016-09-22 18:13 | ER Document Report ---
ED Medical Screen (RME) - General Stated Complaint: RAPID HEART RATE Notes: 65 yo female c/o rapid heart rate, called EMS. EKG done by EMS, NSR. no chest pain or shortness of breath. pt has hx/o anxiety but not taking any meds. TRAVEL OUTSIDE OF THE [place] IN LAST 30 DAYS: No - Related Data Allergies/Adverse Reactions: Penicillins Allergy (Severe, Verified 08/27/16 14:04) Anaphylaxis Sulfa (Sulfonamide Antibiotics) Allergy (Intermediate, Verified 08/27/16 14:04) iching, nausea ciprofloxacin [From Cipro] Allergy (Mild, Verified 08/27/16 14:04) itching, nausea meperidine HCl [From Demerol] Allergy (Mild, Verified 08/27/16 14:04) heart palpitations Past Medical History - Past Medical History Cardiac Medical History: Reports: Hx Hypertension, Hx Peripheral Vascular Disease Denies: Hx Congestive Heart Failure, Hx Coronary Artery Disease, Hx Heart Attack Pulmonary Medical History: Reports: Hx Asthma Denies: Hx Bronchitis, Hx COPD, Hx Pneumonia, Hx Tuberculosis Neurological Medical History: Denies: Hx Cerebrovascular Accident, Hx Seizures Renal/ Medical History: Denies: Hx Peritoneal Dialysis GI Medical History: Reports: Hx Crohn's Disease, Hx Diverticulitis, Hx Gastroesophageal Reflux Disease, Hx Hiatal Hernia, Hx Irritable Bowel, Hx Ulcer. Denies: Hx Hepatitis Musculoskeltal Medical History: Reports Hx Arthritis - rheumatoid, DDD, Reports Hx Musculoskeletal Deformity, Reports Hx Musculoskeletal Trauma Psychiatric Medical History: Reports: Hx Anxiety, Hx Depression Infectious Medical History: Denies: Hx Hepatitis Past Surgical History: Reports: Hx Abdominal Surgery - small intestine removal, Hx Appendectomy, Hx Bowel Surgery - small intestine, Hx Breast Surgery - biopsy , Hx Hysterectomy, Hx Neurologic Surgery - brain tumor removed, Hx Tonsillectomy. Denies: Hx Mastectomy, Hx Open Heart Surgery, Hx Pacemaker - Immunizations Immunizations up to date: Yes Hx Diphtheria, Pertussis, Tetanus Vaccination: Yes - 09/2010 Physical Exam - Vital signs Vitals: Temp Pulse Resp BP Pulse Ox 98.0 F 73 20 136/74 H 100 09/22/16 17:52 09/22/16 17:52 09/22/16 17:52 09/22/16 17:52 09/22/16 17:52 Course - Vital Signs Vital signs: Temp Pulse Resp BP Pulse Ox 98.0 F 73 20 136/74 H 100 09/22/16 17:52 09/22/16 17:52 09/22/16 17:52 09/22/16 17:52 09/22/16 17:52
--- NOTE | 2016-09-22 23:49 | ER Document Report ---
ED General - General Chief Complaint: Palpitations Stated Complaint: RAPID HEART RATE Notes: Patient is a 65-year-old female well-known to this emergency department who presents with concerns palpitations. Patient is a scattered historian but relates a history of feeling that she was having palpitations while at a pharmacy. She contacted EMS who performed an EKG which was unremarkable but she went from the emergency department anyhow. Notes that she's had a history of similar symptoms in the past repeatedly. Nothing improves or worsens or symptoms. Denies any chest pain, shortness of breath, weakness, numbness, or altered mental status. TRAVEL OUTSIDE OF THE [place] IN LAST 30 DAYS: No - Related Data Allergies/Adverse Reactions: Penicillins Allergy (Severe, Verified 09/22/16 18:11) Anaphylaxis Sulfa (Sulfonamide Antibiotics) Allergy (Intermediate, Verified 09/22/16 18:11) iching, nausea ciprofloxacin [From Cipro] Allergy (Mild, Verified 09/22/16 18:11) itching, nausea meperidine HCl [From Demerol] Allergy (Mild, Verified 09/22/16 18:11) heart palpitations Past Medical History - General Information source: Patient - Social History Smoking Status: Never Smoker Chew tobacco use (# tins/day): No Frequency of alcohol use: None Drug Abuse: None Lives with: Alone Family History: Arthritis, CAD, CVA, DM, Hyperlipidemia, Hypertension, Malignancy, Thyroid Disfunction Patient has suicidal ideation: No Patient has homicidal ideation: No - Past Medical History Cardiac Medical History: Reports: Hx Hypertension, Hx Peripheral Vascular Disease Denies: Hx Congestive Heart Failure, Hx Coronary Artery Disease, Hx Heart Attack Pulmonary Medical History: Reports: Hx Asthma Denies: Hx Bronchitis, Hx COPD, Hx Pneumonia, Hx Tuberculosis Neurological Medical History: Denies: Hx Cerebrovascular Accident, Hx Seizures Renal/ Medical History: Denies: Hx Peritoneal Dialysis GI Medical History: Reports: Hx Crohn's Disease, Hx Diverticulitis, Hx Gastroesophageal Reflux Disease, Hx Hiatal Hernia, Hx Irritable Bowel, Hx Ulcer. Denies: Hx Hepatitis Musculoskeltal Medical History: Reports Hx Arthritis - rheumatoid, DDD, Reports Hx Musculoskeletal Deformity, Reports Hx Musculoskeletal Trauma Psychiatric Medical History: Reports: Hx Anxiety, Hx Depression Infectious Medical History: Denies: Hx Hepatitis Past Surgical History: Reports: Hx Abdominal Surgery - small intestine removal, Hx Appendectomy, Hx Bowel Surgery - small intestine, Hx Breast Surgery - biopsy , Hx Hysterectomy, Hx Neurologic Surgery - brain tumor removed, Hx Tonsillectomy. Denies: Hx Mastectomy, Hx Open Heart Surgery, Hx Pacemaker - Immunizations Immunizations up to date: Yes Hx Diphtheria, Pertussis, Tetanus Vaccination: Yes - 09/2010 Hx Pneumococcal Vaccination: 08/24/10 Review of Systems - Review of Systems Notes: Constitutional: Negative for fever. HENT: Negative for sore throat. Eyes: Negative for visual changes. Cardiovascular: Negative for chest pain. Respiratory: Negative for shortness of breath. Gastrointestinal: Negative for abdominal pain, vomiting or diarrhea. Genitourinary: Negative for dysuria. Musculoskeletal: Negative for back pain. Skin: Negative for rash. Neurological: Negative for headaches, weakness or numbness. 10 point ROS negative except as marked above and in HPI. Physical Exam - Vital signs Vitals: Temp Pulse Resp BP Pulse Ox 98.0 F 73 20 136/74 H 100 09/22/16 17:52 09/22/16 17:52 09/22/16 17:52 09/22/16 17:52 09/22/16 17:52 Interpretation: Normal Notes: PHYSICAL EXAMINATION: GENERAL: Well-appearing, well-nourished and in no acute distress. HEAD: Atraumatic, normocephalic. EYES: Pupils equal round and reactive to light, extraocular movements intact, sclera anicteric, conjunctiva are normal. ENT: nares patent, oropharynx clear without exudates. Moist mucous membranes. NECK: Normal range of motion, supple without lymphadenopathy LUNGS: Breath sounds clear to auscultation bilaterally and equal. No wheezes rales or rhonchi. HEART: Regular rate and rhythm without murmurs ABDOMEN: Soft, nontender, normoactive bowel sounds. No guarding, no rebound. No masses appreciated. EXTREMITIES: Normal range of motion, no pitting or edema. No cyanosis. NEUROLOGICAL: No focal neurological deficits. Moves all extremities spontaneously and on command. PSYCH: Normal mood, normal affect. SKIN: Warm, Dry, normal turgor, no rashes or lesions noted. Course - Re-evaluation Re-evalutation: 09/22/16 23:48 Patient presents for palpitations although her EKG both by EMS and here is unremarkable with normal sinus rhythm. Patient is a frequent visitor to this emergency department has been evaluated over 5 times started 2017 for various complaints with reassuring evaluations. She is well-appearing here and in no acute distress. No indication for laboratories are further imaging studies at this time as his primary complaint is palpitations and her EKG is completely reassuring. At this time will discharge with return precautions and follow-up recommendations. Verbal discharge instructions given a the bedside and opportunity for questions given. Medication warnings reviewed. Patient is in agreement with this plan and has verbalized understanding of return precautions and the need for primary care follow-up in the next 24-72 hours. - Vital Signs Vital signs: Temp Pulse Resp BP Pulse Ox 98.3 F 63 16 133/80 H 100 09/23/16 00:27 09/23/16 00:27 09/23/16 00:27 09/23/16 00:27 09/23/16 00:27 - EKG Interpretation by Me Additional EKG results interpreted by me: 09/23/16 00:15 No sinus rhythm. Rate 65. Nausea elevations or depressions. QTC 475. Discharge - Discharge Clinical Impression: Palpitations Condition: Good Disposition: HOME, SELF-CARE Additional Instructions: Please return to the emergency room immediately if you experience any concerning symptoms including high fevers, severe headache, chest pain, difficulty breathing, abdominal pain, slurred speech, numbness or weakness in your arms or legs, or any other symptom that concerns you. Referrals: ARACELI CORTEZ MD [Primary Care Provider] - Follow up as needed
[2016-09-23 00:28] VITALS: BP 133/80
--- NOTE | 2016-09-23 11:28 | EKG REPORT ---
SEVERITY:- NORMAL ECG - SINUS RHYTHM : Confirmed by: Dominique Stevens 23-Sep-2016 11:26:35
== END 2016-09-23 00:27 | disposition home or self-care (01) ==
LOC: ER 17:01
DX: R00.2 Palpitations (principal); I10 Essential (primary) hypertension; Z88.0 Allergy status to penicillin; Z88.2 Allergy status to sulfonamides; Z88.3 Allergy status to other anti-infective agents; Z90.710 Acquired absence of both cervix and uterus
CPT/HCPCS: 93005; 93010; 99285

== ENCOUNTER 2016-10-06 19:23 | Emergency (ER) | payer MEDICARE, MEDICAID ==
--- NOTE | 2016-10-06 21:01 | ER Document Report ---
ED Medical Screen (RME) - General Stated Complaint: RAPID HEART BEAT Notes: 65 yo female c/o episode of rapid heart beat around 4:30 today while at [facility]. pt has been prescribed Toprol, but cant start the medicine until Tuesday. no chest pain or shortness of breath. HR 79, RRR. pt also c/o nose burning and tongue burning. says microwave was smoking today and she inhaled some of the smoke TRAVEL OUTSIDE OF THE [place] IN LAST 30 DAYS: No - Related Data Allergies/Adverse Reactions: Penicillins Allergy (Severe, Verified 09/22/16 18:11) Anaphylaxis Sulfa (Sulfonamide Antibiotics) Allergy (Intermediate, Verified 09/22/16 18:11) iching, nausea ciprofloxacin [From Cipro] Allergy (Mild, Verified 09/22/16 18:11) itching, nausea meperidine HCl [From Demerol] Allergy (Mild, Verified 09/22/16 18:11) heart palpitations Past Medical History - Past Medical History Cardiac Medical History: Reports: Hx Hypertension, Hx Peripheral Vascular Disease Denies: Hx Congestive Heart Failure, Hx Coronary Artery Disease, Hx Heart Attack Pulmonary Medical History: Reports: Hx Asthma Denies: Hx Bronchitis, Hx COPD, Hx Pneumonia, Hx Tuberculosis Neurological Medical History: Denies: Hx Cerebrovascular Accident, Hx Seizures Renal/ Medical History: Denies: Hx Peritoneal Dialysis GI Medical History: Reports: Hx Crohn's Disease, Hx Diverticulitis, Hx Gastroesophageal Reflux Disease, Hx Hiatal Hernia, Hx Irritable Bowel, Hx Ulcer. Denies: Hx Hepatitis Musculoskeltal Medical History: Reports Hx Arthritis - rheumatoid, DDD, Reports Hx Musculoskeletal Deformity, Reports Hx Musculoskeletal Trauma Psychiatric Medical History: Reports: Hx Anxiety, Hx Depression Infectious Medical History: Denies: Hx Hepatitis Past Surgical History: Reports: Hx Abdominal Surgery - small intestine removal, Hx Appendectomy, Hx Bowel Surgery - small intestine, Hx Breast Surgery - biopsy , Hx Hysterectomy, Hx Neurologic Surgery - brain tumor removed, Hx Tonsillectomy. Denies: Hx Mastectomy, Hx Open Heart Surgery, Hx Pacemaker - Immunizations Immunizations up to date: Yes Hx Diphtheria, Pertussis, Tetanus Vaccination: Yes - 09/2010
--- NOTE | 2016-10-06 22:48 | ER Document Report ---
ED General - General Chief Complaint: Arrhythmia Stated Complaint: RAPID HEART BEAT Time seen by provider: 22:40 Notes: Patient is a 65-year-old female that comes emergency department for chief complaint of an episode earlier today and [employer] at about 4:30 PM where she felt like her heart was beating faster than usual. She denies any chest pain, shortness of breath, dizziness. She denies that the symptoms have repeated. She is scheduled to begin Toprol prescription on Tuesday, states she are he took the prescription to the pharmacy. Patient also states that her microwave had some smoking which made her cough earlier and she felt a burning sensation in her nose, she denies any current symptoms, she denies any shortness of breath. Patient denies any other symptoms currently. TRAVEL OUTSIDE OF THE [place] IN LAST 30 DAYS: No - Related Data Allergies/Adverse Reactions: Penicillins Allergy (Severe, Verified 09/22/16 18:11) Anaphylaxis Sulfa (Sulfonamide Antibiotics) Allergy (Intermediate, Verified 09/22/16 18:11) iching, nausea ciprofloxacin [From Cipro] Allergy (Mild, Verified 09/22/16 18:11) itching, nausea meperidine HCl [From Demerol] Allergy (Mild, Verified 09/22/16 18:11) heart palpitations Past Medical History - General Information source: Patient - Social History Smoking Status: Never Smoker Frequency of alcohol use: None Drug Abuse: None Lives with: Family Family History: Arthritis, CAD, CVA, DM, Hyperlipidemia, Hypertension, Malignancy, Thyroid Disfunction Patient has suicidal ideation: No Patient has homicidal ideation: No - Past Medical History Cardiac Medical History: Reports: Hx Hypertension, Hx Peripheral Vascular Disease Denies: Hx Congestive Heart Failure, Hx Coronary Artery Disease, Hx Heart Attack Pulmonary Medical History: Reports: Hx Asthma Denies: Hx Bronchitis, Hx COPD, Hx Pneumonia, Hx Tuberculosis Neurological Medical History: Denies: Hx Cerebrovascular Accident, Hx Seizures Renal/ Medical History: Denies: Hx Peritoneal Dialysis GI Medical History: Reports: Hx Crohn's Disease, Hx Diverticulitis, Hx Gastroesophageal Reflux Disease, Hx Hiatal Hernia, Hx Irritable Bowel, Hx Ulcer. Denies: Hx Hepatitis Musculoskeltal Medical History: Reports Hx Arthritis - rheumatoid, DDD, Reports Hx Musculoskeletal Deformity, Reports Hx Musculoskeletal Trauma Psychiatric Medical History: Reports: Hx Anxiety, Hx Depression Infectious Medical History: Denies: Hx Hepatitis Past Surgical History: Reports: Hx Abdominal Surgery - small intestine removal, Hx Appendectomy, Hx Bowel Surgery - small intestine, Hx Breast Surgery - biopsy , Hx Hysterectomy, Hx Neurologic Surgery - brain tumor removed, Hx Tonsillectomy. Denies: Hx Mastectomy, Hx Open Heart Surgery, Hx Pacemaker - Immunizations Immunizations up to date: Yes Hx Diphtheria, Pertussis, Tetanus Vaccination: Yes - 09/2010 Hx Pneumococcal Vaccination: 08/24/10 Review of Systems - Review of Systems Constitutional: No symptoms reported EENT: See HPI Cardiovascular: See HPI Respiratory: See HPI Gastrointestinal: No symptoms reported Genitourinary: No symptoms reported Female Genitourinary: No symptoms reported Musculoskeletal: No symptoms reported Skin: No symptoms reported Hematologic/Lymphatic: No symptoms reported Neurological/Psychological: No symptoms reported Physical Exam - Vital signs Vitals: Temp Pulse Resp BP Pulse Ox 98 F 79 16 127/80 H 98 10/06/16 19:25 10/06/16 19:25 10/06/16 19:25 10/06/16 19:25 10/06/16 19:25 Interpretation: Normal - General General appearance: Appears well, Alert In distress: None - patient alert, talking non-stop, no distress - HEENT Head: Normocephalic, Atraumatic Eyes: Normal Conjunctiva: Normal Extraocular movements intact: Yes Eyelashes: Normal Pupils: PERRL Sinus: Normal Nasal: Normal. No: Epistaxis, Swelling Mouth/Lips: Normal Mucous membranes: Normal Pharynx: Normal. No: Erythema, Exudate Neck: Normal. No: Anterior cervical chain - Respiratory Respiratory status: No respiratory distress. No: Respiratory distress, Labored , Tachypnea Chest status: Nontender Breath sounds: Normal. No: Decreased air movement, Nonproductive cough, Wheezing Chest palpation: Normal - Cardiovascular Rhythm: Regular. No: Tachycardia Heart sounds: Normal auscultation, S1 appreciated, S2 appreciated Murmur: No - Abdominal Inspection: Normal Distension: No distension Bowel sounds: Normal Tenderness: Nontender. No: Tender, Guarding Organomegaly: No organomegaly - Back Back: Normal, Nontender. No: Tender, CVA tenderness - Extremities General upper extremity: Normal inspection, Nontender, Normal ROM, Normal strength General lower extremity: Normal inspection, Nontender, Normal ROM, Normal strength - Neurological Neuro grossly intact: Yes Cognition: Normal Orientation: AAOx4 [place] Coma Scale Eye Opening: Spontaneous Ji Coma Scale Verbal: Oriented Ji Coma Scale Motor: Obeys Commands [place] Coma Scale Total: 15 Speech: Normal Cranial nerves: Normal Cerebellar coordination: Normal Motor strength normal: LUE, RUE, LLE, RLE Additional motor exam normals: Equal shine worker Sensory: Normal - Psychological Associated symptoms: No: Aggressive, Agitated, Angry, Anxious - Skin Skin Temperature: Warm Skin Moisture: Dry Skin Color: Normal Course - Re-evaluation Re-evalutation: EKG shows sinus rhythm with no acute abnormalities, monitoring of the patient in the department with the child monitor shows no arrhythmia, tachycardia, or abnormality. Patient is alert, well appearing, unremarkable physical exam. Patient ambulates without any difficulty. Patient was reassured, instructed to start her Toprol on Tuesday as planned, discussed primary care follow-up and return precautions. Patient states understanding and agreement. - Vital Signs Vital signs: Temp Pulse Resp BP Pulse Ox 98.2 F 79 13 110/85 100 10/06/16 23:45 10/06/16 19:25 10/06/16 23:01 10/06/16 23:01 10/06/16 23:01 Discharge - Discharge Clinical Impression: Rapid heartbeat Condition: Stable Disposition: HOME, SELF-CARE Additional Instructions: Your EKG, evaluation, and monitoring do not show any concerning abnormalities. Follow-up to begin your Toprol prescription. Return to emergency department for concerning symptoms. Referrals: ARACELI CORTEZ MD [Primary Care Provider] - Follow up as needed
[2016-10-06 23:48] VITALS: BP 110/85
--- NOTE | 2016-10-07 12:51 | EKG REPORT ---
SEVERITY:- NORMAL ECG - SINUS RHYTHM : Confirmed by: Dominique Stevens 07-Oct-2016 12:50:43
== END 2016-10-07 00:12 | disposition home or self-care (01) ==
LOC: ER 19:23
DX: I49.9 Cardiac arrhythmia, unspecified (principal); I10 Essential (primary) hypertension; Z90.710 Acquired absence of both cervix and uterus; Z88.0 Allergy status to penicillin; Z88.2 Allergy status to sulfonamides; Z88.3 Allergy status to other anti-infective agents
CPT/HCPCS: 93005; 93010; 99284

== ENCOUNTER 2016-10-10 16:33 | Emergency (ER) | payer MEDICARE, MEDICAID ==
[2016-10-10] MEDS ORDERED: ACETAMINOPHEN 325 MG TABLET PO ONE (17:29)
--- NOTE | 2016-10-10 17:30 | ER Document Report ---
ED Medical Screen (RME) - General Stated Complaint: BODY PAIN, CHILLS,CONSTIPATED Mode of Arrival: Ambulatory Information source: Patient Notes: Patient complains of flulike symptoms. Patient also reports difficulty having bowel movements for the past 3 days. I have greeted and performed a rapid initial assessment of this patient. A comprehensive ED assessment and evaluation of the patient, analysis of test results and completion of the medical decision making process will be conducted by additional ED providers. TRAVEL OUTSIDE OF THE [place] IN LAST 30 DAYS: No - Related Data Allergies/Adverse Reactions: Penicillins Allergy (Severe, Verified 10/10/16 17:28) Anaphylaxis Sulfa (Sulfonamide Antibiotics) Allergy (Intermediate, Verified 10/10/16 17:28) iching, nausea ciprofloxacin [From Cipro] Allergy (Mild, Verified 10/10/16 17:28) itching, nausea meperidine HCl [From Demerol] Allergy (Mild, Verified 10/10/16 17:28) heart palpitations Past Medical History - Past Medical History Cardiac Medical History: Reports: Hx Hypertension, Hx Peripheral Vascular Disease Denies: Hx Congestive Heart Failure, Hx Coronary Artery Disease, Hx Heart Attack Pulmonary Medical History: Reports: Hx Asthma Denies: Hx Bronchitis, Hx COPD, Hx Pneumonia, Hx Tuberculosis Neurological Medical History: Denies: Hx Cerebrovascular Accident, Hx Seizures Renal/ Medical History: Denies: Hx Peritoneal Dialysis GI Medical History: Reports: Hx Crohn's Disease, Hx Diverticulitis, Hx Gastroesophageal Reflux Disease, Hx Hiatal Hernia, Hx Irritable Bowel, Hx Ulcer. Denies: Hx Hepatitis Musculoskeltal Medical History: Reports Hx Arthritis - rheumatoid, DDD, Reports Hx Musculoskeletal Deformity, Reports Hx Musculoskeletal Trauma Psychiatric Medical History: Reports: Hx Anxiety, Hx Depression Infectious Medical History: Denies: Hx Hepatitis Past Surgical History: Reports: Hx Abdominal Surgery - small intestine removal, Hx Appendectomy, Hx Bowel Surgery - small intestine, Hx Breast Surgery - biopsy , Hx Hysterectomy, Hx Neurologic Surgery - brain tumor removed, Hx Tonsillectomy. Denies: Hx Mastectomy, Hx Open Heart Surgery, Hx Pacemaker - Immunizations Immunizations up to date: Yes Hx Diphtheria, Pertussis, Tetanus Vaccination: Yes - 09/2010 Physical Exam - Vital signs Vitals: Temp Pulse Resp BP Pulse Ox 102.6 F H 103 H 16 148/75 H 98 10/10/16 16:43 10/10/16 16:43 02/19/17 16:43 10/10/16 16:43 10/10/16 16:43 - General General appearance: Appears well, Alert In distress: None Course - Vital Signs Vital signs: Temp Pulse Resp BP Pulse Ox 102.6 F H 103 H 16 148/75 H 98 10/10/16 16:43 10/10/16 16:43 10/10/16 16:43 10/10/16 16:43 10/10/16 16:43
[2016-10-10] MEDS ORDERED: NORMAL SALINE 1000 ML 1,000 ML IV ONE ×2 (22:43→22:55)
[2016-10-10] MEDS ORDERED: LEVOFLOXACIN 500 MG TABLET PO ONE (22:45)
[2016-10-10 22:50] VITALS: BP 135/71
--- NOTE | 2016-10-10 22:53 | ER Document Report ---
ED Respiratory Problem - General Chief Complaint: Fever Stated Complaint: BODY PAIN, CHILLS,CONSTIPATED Time seen by provider: 22:51 Mode of Arrival: Ambulatory Information source: Patient Notes: 65-year-old female presents to ED for flulike symptoms with cough shortness of breath nasal drainage and fevers for the last 3 days. He presented to the ED today with a fever for 102.6 and a pulse of 103. TRAVEL OUTSIDE OF THE [place] IN LAST 30 DAYS: No - HPI Patient complains to provider of: Cough Onset: Other - States 3 days Duration: Worse/persistent Initiating Event: URI Quality of pain: Achy Severity: Mild Pain Level: 1 Context: Hx asthma Short of Breath: Mild Cough: Productive Sputum amount: Moderate Sputum color: Green, Yellow Sputum consistency: Thick Associated symptoms: Congestion, Cough, Fever, PND, Runny nose, Other - Bodyaches Similar symptoms previously: Yes Recently seen / treated by doctor: Yes - Related Data Allergies/Adverse Reactions: Penicillins Allergy (Severe, Verified 10/10/16 17:28) Anaphylaxis Sulfa (Sulfonamide Antibiotics) Allergy (Intermediate, Verified 10/10/16 17:28) iching, nausea ciprofloxacin [From Cipro] Allergy (Mild, Verified 10/10/16 17:28) itching, nausea meperidine HCl [From Demerol] Allergy (Mild, Verified 10/10/16 17:28) heart palpitations Past Medical History - General Information source: Patient - Social History Smoking Status: Never Smoker Cigarette use (# per day): No Chew tobacco use (# tins/day): No Smoking Education Provided: No Frequency of alcohol use: None Drug Abuse: None Family History: Arthritis, CAD, CVA, DM, Hyperlipidemia, Hypertension, Malignancy, Thyroid Disfunction Patient has suicidal ideation: No Patient has homicidal ideation: No - Past Medical History Cardiac Medical History: Reports: Hx Hypertension, Hx Peripheral Vascular Disease Denies: Hx Congestive Heart Failure, Hx Coronary Artery Disease, Hx Heart Attack Pulmonary Medical History: Reports: Hx Asthma EENT Medical History: Reports: None Neurological Medical History: Reports: None Endocrine Medical History: Reports: None Renal/ Medical History: Reports: None Malignancy Medical History: Reports: None GI Medical History: Reports: Hx Crohn's Disease, Hx Diverticulitis, Hx Gastroesophageal Reflux Disease, Hx Hiatal Hernia, Hx Irritable Bowel, Hx Ulcer Musculoskeltal Medical History: Reports Hx Arthritis - rheumatoid, DDD, Reports Hx Musculoskeletal Deformity, Reports Hx Musculoskeletal Trauma Skin Medical History: Reports None Psychiatric Medical History: Reports: Hx Anxiety, Hx Depression Traumatic Medical History: Reports: None Infectious Medical History: Reports: None Past Surgical History: Reports: Hx Abdominal Surgery - small intestine removal, Hx Appendectomy, Hx Bowel Surgery - small intestine, Hx Breast Surgery - biopsy , Hx Hysterectomy, Hx Neurologic Surgery - brain tumor removed, Hx Tonsillectomy - Immunizations Immunizations up to date: Yes Hx Diphtheria, Pertussis, Tetanus Vaccination: Yes - 09/2010 Hx Pneumococcal Vaccination: 08/24/10 Review of Systems - Review of Systems Constitutional: Fever, Recent illness EENT: Nose discharge, Sinus discharge Cardiovascular: No symptoms reported Respiratory: Cough Gastrointestinal: No symptoms reported Genitourinary: No symptoms reported Female Genitourinary: No symptoms reported Musculoskeletal: No symptoms reported Skin: No symptoms reported Hematologic/Lymphatic: No symptoms reported Neurological/Psychological: No symptoms reported -: Yes All other systems reviewed and negative Physical Exam - Vital signs Vitals: Temp Pulse Resp BP Pulse Ox 102.6 F H 103 H 16 148/75 H 98 10/10/16 16:43 10/10/16 16:43 10/10/16 16:43 10/10/16 16:43 10/10/16 16:43 Interpretation: Hypotensive, Tachycardic, Febrile Notes: When vital signs rechecked when I assessed her her temperature was 99.4 oxygen saturation 96 pulse was 95 blood pressure 135/71 - General General appearance: Appears well, Alert - HEENT Head: Normocephalic, Atraumatic Eyes: Normal Pupils: PERRL Ears: Normal External canal: Normal Tympanic membrane: Normal Sinus: Normal Nasal: Purulent discharge, Swelling Mouth/Lips: Normal Mucous membranes: Normal Pharynx: Post nasal drainage Neck: Normal - Respiratory Respiratory status: No respiratory distress Chest status: Nontender Breath sounds: Normal, Productive cough Chest palpation: Normal - Cardiovascular Rhythm: Regular Heart sounds: Normal auscultation Murmur: No - Abdominal Inspection: Normal Distension: No distension Bowel sounds: Normal Tenderness: Nontender Organomegaly: No organomegaly - Back Back: Normal, Nontender - Extremities General upper extremity: Normal inspection, Nontender, Normal color, Normal ROM , Normal temperature General lower extremity: Normal inspection, Nontender, Normal color, Normal ROM , Normal temperature, Normal weight bearing. No: Guille's sign - Neurological Neuro grossly intact: Yes Cognition: Normal Orientation: AAOx4 Ji Coma Scale Eye Opening: Spontaneous Ji Coma Scale Verbal: Oriented Ji Coma Scale Motor: Obeys Commands Ji Coma Scale Total: 15 Speech: Normal Motor strength normal: LUE, RUE, LLE, RLE Sensory: Normal - Psychological Associated symptoms: Normal affect, Normal mood - Skin Skin Temperature: Warm Skin Moisture: Dry Skin Color: Normal Course - Re-evaluation Re-evalutation: 10/11/16 06:38 Chest x-ray was negative the patient came in with elevated elevated pulse and a cough. Patient was treated with Levaquin for pneumonia given IV fluids and Zofran for nausea and vomiting. Patient was discharged home with prescription for Levaquin and Zofran and instructed to follow-up with her primary doctor. - Vital Signs Vital signs: Temp Pulse Resp BP Pulse Ox 99.4 F 96 16 135/71 H 100 10/10/16 22:37 10/10/16 22:37 10/10/16 16:43 10/10/16 22:37 10/10/16 22:37 - Laboratory Result Diagrams: 10/10/16 23:09 10/10/16 23:09 Laboratory results interpreted by me: 10/10/16 10/10/16 10/10/16 22:24 23:09 23:09 Hct 35.5 L Potassium 3.3 L BUN 5 L Urine Ketones TRACE H - Diagnostic Test Radiology reviewed: Image reviewed, Reports reviewed Discharge - Discharge Clinical Impression: Pneumonia Qualifiers: Pneumonia type: due to unspecified organism Laterality: unspecified laterality Lung location: unspecified part of lung Qualified Code(s): J18.9 - Pneumonia, unspecified organism Condition: Stable Disposition: HOME, SELF-CARE Additional Instructions: PNEUMONIA: Your examination indicates that you have pneumonia. This is an infection of the lung tissue, usually caused by bacteria or a virus. Symptoms include cough, fever, shaking chills, chest pain, shortness of breath, and coughing up bloody sputum. Treatment for bacterial pneumonia includes rest, antibiotics for 10 to 14 days, increasing your clear liquid intake, a cool mist humidifier at your bedside, and fever medication. Often, a repeat chest X-ray is performed in a few weeks--even if you feel better--to ascertain whether the infection has completely resolved and no underlying lung problem is present. You should call the physician if you develop persistent vomiting, high fever that does not respond to fever medication, increasing shortness of breath , confusion, or lethargy. Also, failure to improve within two to three days is an indication for re-examination. LEVOFLOXACIN: You have been given an antibacterial agent, levofloxacin (Levaquin). This medicine is not related to the penicillins, sulfas, cephalosporins, or tetracyclines. It is often given to patients who are allergic to these drugs. It has been chosen for you either because other drugs are not appropriate, or because of the nature of your problem. Levaquin should not be taken with antacids, as these can decrease its effectiveness. It can be taken without regard to meals. LEVAQUIN SHOULD NOT BE TAKEN BY CHILDREN, NURSING WOMEN, OR WOMEN. Although Levaquin is usually well-tolerated, common side effects can include nausea and diarrhea. Contact your doctor if you experience any unusual symptoms while on this medication, such as joint pain or swelling, shortness of breath, wheezing, faintness, or hives. Antinausea Medication You have been given a medication to suppress nausea and vomiting. This type of medication can be given as a shot, pill, or suppository. It will usually last for many hours. Pills and shots usually last six to eight hours, suppositories last about 12 hours. For the typical illness, only one or two doses of the medication may be necessary. Mild lightheadedness may occur. This type of medicine can cause drowsiness. Do not drive or operate dangerous machinery while under its influence. Do not mix with alcohol. See your doctor at once if you have muscle spasms or tightness, or uncontrollable motions (particularly of the neck, mouth, or jaw). Persistent vomiting or severe lightheadedness should also be evaluated by the physician. USE OF ACETAMINOPHEN (Tylenol): Acetaminophen may be taken for pain relief or fever control. It's much safer than aspirin, offering a wider range of "safe" dosages. It is safe during . Some brand names are Tylenol, Panadol, Datril, Anacin 3, Tempra, and Liquiprin. Acetaminophen can be repeated every four hours. The following are maximum recommended dosages: WEIGHT Dose Drops Elixir Chewable( 80mg) (LBS.) drprs=droppers tsp=teaspoon 6 40 mg 0.4 ml (1/2) 6-11 80 mg 0.8 ml (full) tsp 1 tab 12-16 120 mg 1 1/2 drprs 3/4 tsp 1 1/2 tabs 17-23 160 mg 2 drprs 1 tsp 2 tabs 24-30 240 mg 3 drprs 1 1/2 tsp 3 tabs 30-35 320 mg 2 tsp 4 tabs 36-41 360 mg 2 1/4 tsp 4 1/2 tabs 42-47 400 mg 2 1/2 tsp 5 tabs 48-53 480 mg 3 tsp 6 tabs 54-59 520 mg 3 1/4 tsp 6 1/2 tabs 60-64 560 mg 3 1/2 tsp 7 tabs 65-70 600 mg 3 3/4 tsp 7 1/2 tabs 71-76 640 mg 4 tsp 8 tabs 77-82 720 mg 4 1/2 tsp 9 tabs 83-88 800 mg 5 tsp 10 tabs >89 pounds or adults 650 mg to 900 mg Acetaminophen can be repeated every four hours. Maximum dose not to exceed 4000 mg a day. These maximum recommended dosages are slightly higher than the dosages written on the product container, but these dosages are very safe and below the toxic dosage for acetaminophen. FOLLOW-UP CARE: If you have been referred to a physician for follow-up care, call the physician s office for an appointment as you were instructed or within the next two days. If you experience worsening or a significant change in your symptoms, notify the physician immediately or return to the Emergency Department at any time for re-evaluation. Follow-up with your primary doctor by telephone tomorrow to schedule a follow- up appointment please Prescriptions: Ondansetron HCl [Zofran 4 mg Tablet] 1 tab PO Q6HP PRN #10 tablet PRN Reason: Levofloxacin [Levaquin 500 mg Tablet] 500 mg PO DAILY #10 tablet Forms: Elevated Blood Pressure Referrals: ARACELI CORTEZ MD [Primary Care Provider] - Follow up tomorrow
[2016-10-10 23:06] LABS: APPEARANCE,URINE SLIGHTLY-CLOUDY; BILIRUBIN,URINE NEGATIVE (NEGATIVE); GLUCOSE, URINE NEGATIVE (NEGATIVE); KETONES,URINE TRACE mg/dL (NEGATIVE); LEUKOCYTE ESTERASE,URINE NEGATIVE (NEGATIVE); NITRITE,URINE NEGATIVE (NEGATIVE); PROTEIN,URINE NEGATIVE (NEGATIVE); URINE SPECIFIC GRAVITY 1.008; UROBILINOGEN,URINE NEGATIVE mg/dL (<2.0)
[2016-10-10] MEDS ORDERED: ONDANSETRON HCL INJ/PF 4 MG/2 ML SDV IV ONE (23:19)
[2016-10-10 23:22] LABS: ABSOLUTE EOSINOPHILS # (AUTO) 0.1 10^3/uL (0.0-0.6); ABSOLUTE LYMPHOCYTES (AUTO) 0.6 10^3/uL (0.5-4.7); ABSOLUTE MONOCYTES (AUTO) 0.4 10^3/uL (0.1-1.4); ABSOLUTE NEUT (AUTO) 3.3 10^3/uL (1.7-8.2); BASOPHILS % (AUTO) 0.5 % (0-2); EOSINOPHILS % (AUTO) 1.5 % (0-6); HEMATOCRIT 35.5 % (36.0-47.0); HEMOGLOBIN 12.1 g/dL (12.0-15.5); HGB HCT DIFFERENCE 0.8; MEAN CORPUSCULAR HEMOGLOBIN 31.6 pg (27.0-33.4); MEAN CORPUSCULAR HGB CONC 34.1 g/dL (32.0-36.0); MEAN CORPUSCULAR VOLUME 93 fl (80-97); MONOCYTES % (AUTO) 8.6 % (3-13); RED BLOOD COUNT 3.83 10^6/uL (3.72-5.28); SEGMENTED NEUTROPHILS % (AUTO) 75.4 % (42-78); WHITE BLOOD COUNT 4.4 10^3/uL (4.0-10.5)
[2016-10-10 23:45] LABS: ALANINE AMINOTRANSFERASE 24 U/L (9-52); ALBUMIN 4.1 g/dL (3.5-5.0); ALKALINE PHOSPHATASE 51 U/L (38-126); ANION GAP 13 (5-19); ASPARTATE AMINO TRANSFERASE 25 U/L (14-36); BILIRUBIN,TOTAL 0.7 mg/dL (0.2-1.3); BLOOD UREA NITROGEN 5 mg/dL (7-20); CALCIUM 9.2 mg/dL (8.4-10.2); CARBON DIOXIDE 24 mmol/L (22-30); CHLORIDE 102 mmol/L (98-107); CREATININE RESULT 0.72 mg/dL (0.52-1.25); GLUCOSE 81 mg/dL (75-110); POTASSIUM 3.3 mmol/L (3.6-5.0); SODIUM 139.2 mmol/L (137-145); TOTAL PROTEIN 6.8 g/dL (6.3-8.2)
[2016-10-11] MEDS ORDERED: ACETAMINOPHEN 325 MG TABLET ONE (04:04)
== END 2016-10-11 03:00 | disposition home or self-care (01) ==
LOC: ER 16:33
DX: J18.9 Pneumonia, unspecified organism (principal); R06.02 Shortness of breath; J34.89 Other specified disorders of nose and nasal sinuses; R50.9 Fever, unspecified; R05 Cough; R52 Pain, unspecified; I95.9 Hypotension, unspecified; R00.0 Tachycardia, unspecified; Z88.2 Allergy status to sulfonamides; Z88.1 Allergy status to other antibiotic agents; Z87.892 Personal history of anaphylaxis; Z88.5 Allergy status to narcotic agent; I10 Essential (primary) hypertension; J45.909 Unspecified asthma, uncomplicated; R11.2 Nausea with vomiting, unspecified
CPT/HCPCS: 99284; 36415; 87040; 87086; 85025; 80053; 81001; 83605; 87804; 71020; A9270 ×2

== ENCOUNTER 2016-10-11 14:27 | Observation (INO) | payer MEDICARE, MEDICAID ==
[2016-10-11 15:21] LABS: HEMATOCRIT 34.9 % (36.0-47.0); HEMOGLOBIN 11.8 g/dL (12.0-15.5); HGB HCT DIFFERENCE 0.5; MEAN CORPUSCULAR HEMOGLOBIN 31.6 pg (27.0-33.4); MEAN CORPUSCULAR HGB CONC 33.8 g/dL (32.0-36.0); MEAN CORPUSCULAR VOLUME 94 fl (80-97); RED BLOOD COUNT 3.73 10^6/uL (3.72-5.28); RED CELL DISTRIBUTION WIDTH 14.2 % (11.5-14.0); WHITE BLOOD COUNT 3.8 10^3/uL (4.0-10.5)
[2016-10-11 15:43] LABS: ALANINE AMINOTRANSFERASE 29 U/L (9-52); ALBUMIN 4.2 g/dL (3.5-5.0); ALKALINE PHOSPHATASE 51 U/L (38-126); ANION GAP 12 (5-19); ASPARTATE AMINO TRANSFERASE 31 U/L (14-36); BILIRUBIN,TOTAL 0.6 mg/dL (0.2-1.3); BLOOD UREA NITROGEN 6 mg/dL (7-20); CALCIUM 9.2 mg/dL (8.4-10.2); CARBON DIOXIDE 26 mmol/L (22-30); CHLORIDE 99 mmol/L (98-107); CREATININE RESULT 0.75 mg/dL (0.52-1.25); GLUCOSE 71 mg/dL (75-110); POTASSIUM 3.6 mmol/L (3.6-5.0); SODIUM 136.6 mmol/L (137-145)
[2016-10-11] MEDS ORDERED: ENOXAPARIN SODIUM INJ 40 MG/0.4 ML DISP.SYRIN SUBCUT ONE (17:00)
[2016-10-11] MEDS ORDERED: ACETAMINOPHEN 325 MG TABLET PO PRN (19:43)
[2016-10-11] MEDS ORDERED: ACETAMINOPHEN 325 MG TABLET ONE (19:53)
[2016-10-11] MEDS: IPRATROPIUM/ALBUTEROL 0.5-2.5 MG/3 ML AMPUL NEB SCH (20:06)
[2016-10-11 20:08] LABS: APPEARANCE,URINE CLEAR; BILIRUBIN,URINE NEGATIVE (NEGATIVE); GLUCOSE, URINE NEGATIVE (NEGATIVE); KETONES,URINE TRACE mg/dL (NEGATIVE); LEUKOCYTE ESTERASE,URINE NEGATIVE (NEGATIVE); NITRITE,URINE NEGATIVE (NEGATIVE); PROTEIN,URINE NEGATIVE (NEGATIVE); URINE SPECIFIC GRAVITY 1.004; UROBILINOGEN,URINE NEGATIVE mg/dL (<2.0)
[2016-10-11 20:28] LABS: ARTERIAL BLOOD BASE EXCESS 0.9 mmol/L; ARTERIAL BLOOD O2 SATURATION 97.5 % (94-98)
[2016-10-11] MEDS ORDERED: ALBUTEROL SULFATE HFA (90 MCG/PUFF) 8 GM MDI (1 MDI/ER DISP) IH PRN (20:41)
[2016-10-11] MEDS: NORMAL SALINE 1000 ML 1,000 ML IV PRN (20:55)
[2016-10-11] MEDS ORDERED: ALBUTEROL SULFATE HFA (90 MCG/PUFF) 200 PUFF/8.5 GM MDI IH PRN (21:10)
[2016-10-11] MEDS: LEVOFLOXACIN 750 MG/D5W RTU 750 MG/150 ML RTUPB IV SCH (21:11)
[2016-10-11] MEDS: ACETAMINOPHEN WITH CODEINE #3 TABLET PO SCH (23:00)
[2016-10-11] MEDS: ALPRAZOLAM 0.5 MG TABLET PO SCH (23:01)
[2016-10-12] MEDS: IPRATROPIUM/ALBUTEROL 0.5-2.5 MG/3 ML AMPUL NEB SCH ×4 (01:52→19:49)
[2016-10-12] MEDS ORDERED: LANSOPRAZOLE 30 MG TAB.RAP.DR PO SCH (08:00)
[2016-10-12] MEDS: NORMAL SALINE 1000 ML 1,000 ML IV PRN (08:31)
[2016-10-12] MEDS ORDERED: METOPROLOL SUCCINATE 25 MG TAB.SR.24H PO SCH (10:00)
[2016-10-12] MEDS ORDERED: ENOXAPARIN SODIUM INJ 40 MG/0.4 ML DISP.SYRIN SUBCUT SCH (10:00)
[2016-10-12] MEDS: ACETAMINOPHEN WITH CODEINE #3 TABLET PO SCH (10:36)
[2016-10-12] MEDS: ALPRAZOLAM 0.5 MG TABLET PO SCH (10:37)
[2016-10-12] MEDS: SUCRALFATE SUSP 1 GM/10 ML UDCUP PO SCH ×2 (10:38→19:24)
[2016-10-12] MEDS ORDERED: NA PHOS,M-B/NA PHOS,DI-BA (ADULT) 133 ML ENEMA PR ONE (14:30)
--- NOTE | 2016-10-12 17:06 | PDOC H&P ---
History of Present Illness Admission Date/PCP: 10/11/16 14:27 ARACELI CORTEZ MD History of Present Illness: MICHAEL CAMEJO is a 65 year old female, she came to the office with a complaint of cough, fever, nasal congestion, the cough is productive of sputum tinged with blood. She told me she was in the emergency room on 10/10/2015 and she was diagnosed with pneumonia, she said she is getting worse, she is dehydrated, she wants to be admitted into the hospital. The initial chest x-ray was negative for any acute infiltrate to suggest pneumonia. Subsequent CT chest without contrast was done and it showed no consolidation. There is mild scattered chronic interstitial changes and bronchiectasis no pneumothorax. No pleural effusions. Past Medical History Cardiac Medical History: Reports: Hypertension Pulmonary Medical History: Reports: Asthma GI Medical History: Reports: Crohn's Disease, Diverticulitis, Gastroesophageal Reflux Disease, Hiatal Hernia Musculoskeltal Medical History: Reports: Arthritis - rheumatoid, DDD Psychiatric Medical History: Reports: Depression Hematology: Reports: Anemia - NO CURRENT MEDS Past Surgical History Past Surgical History: Reports: Appendectomy, Hysterectomy, Tonsillectomy Social History Smoking Status: Never Smoker Frequency of Alcohol Use: None Hx Recreational Drug Use: No Drugs: None Hx Prescription Drug Abuse: No Family History Family History: Arthritis, CAD, CVA, DM, Hyperlipidemia, Hypertension, Malignancy, Thyroid Disfunction Parental Family History Reviewed: Yes Children Family History Reviewed: Yes Sibling(s) Family History Reviewed.: Yes Medication/Allergy Home Medications: Acetaminophen with Codeine [Acetaminophen-Cod #3 Tablet] 1 each PO Q12 10/11/16 Albuterol Sulfate [Proair HFA] 2 puff IH Q4HP PRN 10/11/16 Alprazolam [Xanax 0.5 mg Tablet] 0.5 mg PO Q12 10/11/16 Alprazolam [Xanax 0.5 mg Tablet] 0.5 mg PO Q8 10/11/16 Atorvastatin Calcium [Lipitor 80 mg Tablet] 80 mg PO QHS 10/11/16 Celecoxib [Celebrex 200 mg Capsule] 200 mg PO Q12 10/11/16 Clobetasol Propionate [Clobetasol Propionate Cream] 1 applic TP BID 10/11/16 Cyanocobalamin (Vitamin B-12) [Vitamin B-12 Inj 1000 Mcg/1 ml Vial] 1,000 mcg IM [id number] 10/11/16 Cyclobenzaprine HCl [Flexeril 10 mg Tablet] 10 mg PO TID 10/11/16 Dexlansoprazole [Dexilant 60 mg Capsule] 60 mg PO DAILY 10/11/16 Diazepam 5 mg PO DAILYP PRN 10/11/16 Dicyclomine HCl [Bentyl 10 mg Capsule] 1 cap PO TID 10/11/16 Hydrocortisone Acetate [Anusol Hc 25 mg Supp.rect] 1 supp.rect [place] BID 10/11/16 Hydrocortisone [Hydrocortisone 1% Cream 28.35 Gm] 1 applic TP BID 10/11/16 Ipratropium/Albuterol Sulfate [Duoneb 3 ml Ampul] 3 ml NEB RTQ6 10/11/16 Lansoprazole [Prevacid 30 Mg Odt Tablet] 30 mg PO [id number] 10/11/16 Linaclotide [Linzess] 290 mcg PO DAILY 10/11/16 Meclizine HCl 25 mg PO TID 10/11/16 Metoprolol Succinate [Toprol Xl 25 mg Tab.sr] 25 mg PO DAILY 10/11/16 Pantoprazole Sodium [Protonix] 40 mg PO DAILY 10/11/16 Potassium Chloride [Klor-Con] 20 meq PO DAILY 10/11/16 Raloxifene HCl [Evista 60 mg Tablet] 60 mg PO DAILY 10/11/16 Sucralfate [Carafate Susp 1 Gm/10 Ml Udcup] 1 gm PO BID 10/11/16 Triamcinolone Acetonide [Aristocort 0.1% Cream 15 gm] 1 applic TP BID 10/11/16 Zolpidem Tartrate [Ambien 5 mg Tablet] 5 mg PO QHS 10/11/16 Allergies/Adverse Reactions: Penicillins Allergy (Severe, Verified 10/10/16 17:28) Anaphylaxis Sulfa (Sulfonamide Antibiotics) Allergy (Intermediate, Verified 10/10/16 17:28) iching, nausea ciprofloxacin [From Cipro] Allergy (Mild, Verified 10/10/16 17:28) itching, nausea meperidine HCl [From Demerol] Allergy (Mild, Verified 10/10/16 17:28) heart palpitations Review of Systems Constitutional: ABSENT: chills, fever(s), headache(s), weight gain, weight loss Eyes: ABSENT: visual disturbances Ears: ABSENT: hearing changes Cardiovascular: ABSENT: chest pain, dyspnea on exertion, edema, orthropnea, palpitations Respiratory: PRESENT: cough, sputum Gastrointestinal: ABSENT: abdominal pain, constipation, diarrhea, hematemesis, hematochezia, nausea, vomiting Genitourinary: ABSENT: dysuria, hematuria Musculoskeletal: ABSENT: joint swelling Integumentary: ABSENT: rash, wounds Neurological: ABSENT: abnormal gait, abnormal speech, confusion, dizziness, focal weakness, syncope Psychiatric: ABSENT: anxiety, depression, homidical ideation, suicidal ideation Endocrine: ABSENT: cold intolerance, heat intolerance, menstrual abnormalities, polydipsia, polyuria Hematologic/Lymphatic: ABSENT: easy bleeding, easy bruising, lymphadenopathy Physical Exam Vital Signs: Temp Pulse Resp BP Pulse Ox 98 F 87 16 141/70 H 100 10/12/16 13:00 10/12/16 14:34 10/12/16 14:34 10/12/16 13:00 10/12/16 13:00 Intake & Output 10/11/16 10/12/16 10/13/16 06:59 06:59 06:59 Intake Total 2015 Output Total 1600 Balance 415 Weight 63.67 kg General appearance: PRESENT: no acute distress, well-developed, well-nourished Head exam: PRESENT: atraumatic, normocephalic Eye exam: PRESENT: conjunctiva pink, EOMI, PERRLA Ear exam: PRESENT: normal external ear exam Mouth exam: PRESENT: moist, tongue midline Neck exam: PRESENT: full ROM Respiratory exam: PRESENT: rales Cardiovascular exam: PRESENT: RRR, +S1, +S2 Vascular exam: PRESENT: normal capillary refill GI/Abdominal exam: PRESENT: normal bowel sounds, soft Rectal exam: PRESENT: deferred Neurological exam: PRESENT: alert, awake, oriented to person, oriented to place , oriented to time, oriented to situation, CN II-XII grossly intact. ABSENT: motor sensory deficit Psychiatric exam: PRESENT: appropriate affect, normal mood Skin exam: PRESENT: dry, intact, warm Results Laboratory Results: 10/11/16 15:13 10/11/16 15:13 10/11/16 10/11/16 17:35 18:57 Carbonic Acid 0.80 L HCO3/H2CO3 Ratio 28:1 ABG pH 7.54 H ABG pCO2 26.7 L ABG pO2 84.8 ABG HCO3 22.4 ABG O2 Saturation 97.5 ABG Base Excess 0.9 FiO2 21% Urine Color STRAW Urine Appearance CLEAR Urine pH 5.0 Ur Specific Catarina 1.004 Urine Protein NEGATIVE Urine Glucose (UA) NEGATIVE Urine Ketones TRACE H Urine Blood NEGATIVE Urine Nitrite NEGATIVE Ur Leukocyte Esterase NEGATIVE Urine WBC (Auto) 1 Impressions: Chest CT 10/11/16 00:00 IMPRESSION: No consolidation. Mild scattered chronic interstitial changes and bronchiectasis. Minimal subsegmental atelectasis in the lung bases. Chest X-Ray 10/11/16 00:00 IMPRESSION: NO SIGNIFICANT RADIOGRAPHIC FINDING IN THE CHEST. Assessment & Plan - Diagnosis (1) Acute sinusitis Qualifiers: Sinusitis location: pansinusitis Recurrence: not specified as recurrent Qualified Code(s): J01.40 - Acute pansinusitis, unspecified Is this a current diagnosis for this admission?: YesPlan: She gave the impression that she was diagnosed with pneumonia, but the chest x- ray and a CT scan of the chest did not confirm pneumonia. She probably have sinusitis, because she has high fever with elevated temperature,103 , she will be admitted to the hospital and treated with IV fluids
--- NOTE | 2016-10-12 17:56 | PDOC DISCHARGE SUMMARY ---
General - Admit/Disc Date/PCP Admission Date/Primary Care Provider: 10/11/16 14:27 ARACELI CORTEZ MD Discharge Date: 10/12/16 - Discharge Diagnosis (1) Acute sinusitis Is this a current diagnosis for this admission?: Yes (2) Constipation Is this a current diagnosis for this admission?: Yes (3) Irritable bowel syndrome Is this a current diagnosis for this admission?: Yes (4) Depression Is this a current diagnosis for this admission?: Yes - Additional Information Discharge Diet: As Tolerated Discharge Activity: Activity As Tolerated Home Medications: Acetaminophen with Codeine [Acetaminophen-Cod #3 Tablet] 1 each PO Q12 10/11/16 Albuterol Sulfate [Proair HFA] 2 puff IH Q4HP PRN 10/11/16 Alprazolam [Xanax 0.5 mg Tablet] 0.5 mg PO Q8 10/11/16 Clobetasol Propionate [Clobetasol Propionate Cream] 1 applic TP BID 10/11/16 Cyanocobalamin (Vitamin B-12) [Vitamin B-12 Inj 1000 Mcg/1 ml Vial] 1,000 mcg IM [id number] 10/11/16 Cyclobenzaprine HCl [Flexeril 10 mg Tablet] 10 mg PO TID 10/11/16 Ipratropium/Albuterol Sulfate [Duoneb 3 ml Ampul] 3 ml NEB RTQ6 10/11/16 Lansoprazole [Prevacid 30 mg Odt Tablet] 30 mg PO [id number] 10/11/16 Linaclotide [Linzess] 290 mcg PO DAILY 10/11/16 Metoprolol Succinate [Toprol Xl 25 mg Tab.sr] 25 mg PO DAILY 10/11/16 Raloxifene HCl [Evista 60 mg Tablet] 60 mg PO DAILY 10/11/16 Sucralfate [Carafate Susp 1 gm/10 ml Udcup] 1 gm PO BID 10/11/16 Triamcinolone Acetonide [Aristocort 0.1% Cream] 1 applic TP BID 10/11/16 Zolpidem Tartrate [Ambien 5 mg Tablet] 5 mg PO QHS 10/11/16 History of Present Illness History of Present Illness: MICHAEL CAMEJO is a 65 year old female, she came to the office with a complaint of cough, fever, nasal congestion, the cough is productive of sputum tinged with blood. She told me she was in the emergency room on 10/10/2015 and she was diagnosed with pneumonia, she said she is getting worse, she is dehydrated, she wants to be admitted into the hospital. The initial chest x-ray was negative for any acute infiltrate to suggest pneumonia. Subsequent CT chest without contrast was done and it showed no consolidation. There is mild scattered chronic interstitial changes and bronchiectasis no pneumothorax. No pleural effusions. Hospital Course Hospital Course: Patient was admitted because it was felt that she had pneumonia, but CT chest and chest x-ray was negative for any acute infiltrate, or any consolidation to suggest pneumonia. She was treated empirically with IV antibiotic, Levaquin, she probably have acute sinusitis. She was seen a day earlier in the emergency room and she told me she was diagnosed with pneumonia. She was seen in the office the day after she was in emergency room and she stated that she was not improving and that she needed to be hospitalized for IV therapy. She had a fever with temperature 103 but there is no leukocytosis and there was no need for acute inpatient care Physical Exam Vital Signs: Temp Pulse Resp BP Pulse Ox 98.1 F 97 16 108/55 L 100 10/12/16 16:29 10/12/16 16:29 10/12/16 16:29 10/12/16 16:29 10/12/16 16:29 Intake & Output 10/11/16 10/12/16 10/13/16 06:59 06:59 06:59 Intake Total 2015 Output Total 1600 Balance 415 Weight 63.67 kg General appearance: PRESENT: no acute distress, well-developed, well-nourished Head exam: PRESENT: atraumatic, normocephalic Eye exam: PRESENT: conjunctiva pink, EOMI, PERRLA Ear exam: PRESENT: normal external ear exam Neck exam: PRESENT: full ROM Respiratory exam: PRESENT: clear to auscultation franky Cardiovascular exam: PRESENT: RRR, +S1, +S2 Vascular exam: PRESENT: normal capillary refill GI/Abdominal exam: PRESENT: normal bowel sounds, soft Rectal exam: PRESENT: deferred Neurological exam: PRESENT: alert, awake, oriented to person, oriented to place , oriented to time, oriented to situation, CN II-XII grossly intact Psychiatric exam: PRESENT: appropriate affect, normal mood Skin exam: PRESENT: dry, intact, warm Results Laboratory Results: 10/11/16 15:13 10/11/16 15:13 10/11/16 10/11/16 17:35 18:57 Carbonic Acid 0.80 L HCO3/H2CO3 Ratio 28:1 ABG pH 7.54 H ABG pCO2 26.7 L ABG pO2 84.8 ABG HCO3 22.4 ABG O2 Saturation 97.5 ABG Base Excess 0.9 FiO2 21% Urine Color STRAW Urine Appearance CLEAR Urine pH 5.0 Ur Specific [place] 1.004 Urine Protein NEGATIVE Urine Glucose (UA) NEGATIVE Urine Ketones TRACE H Urine Blood NEGATIVE Urine Nitrite NEGATIVE Ur Leukocyte Esterase NEGATIVE Urine WBC (Auto) 1 Impressions: Chest CT 10/11/16 00:00 IMPRESSION: No consolidation. Mild scattered chronic interstitial changes and bronchiectasis. Minimal subsegmental atelectasis in the lung bases. Chest X-Ray 10/11/16 00:00 IMPRESSION: NO SIGNIFICANT RADIOGRAPHIC FINDING IN THE CHEST.
[2016-10-12] MEDS: LEVOFLOXACIN 750 MG/D5W RTU 750 MG/150 ML RTUPB IV SCH (19:24)
[2016-10-12] MEDS ORDERED: LUBIPROSTONE 24 MCG CAPSULE PO ONE (19:30)
[2016-10-12 20:30] VITALS: BP 141/70
== END 2016-10-12 20:45 | disposition home or self-care (01) ==
LOC: 5 14:27 → INTOOBSV 14:27
PROVIDERS: ADMIT Internal Medicine; ATTEND Internal Medicine
DX: J01.40 Acute pansinusitis, unspecified (principal); K59.00 Constipation, unspecified; K58.9 Irritable bowel syndrome, unspecified; F32.9 Major depressive disorder, single episode, unspecified; R04.2 Hemoptysis; K50.90 Crohn's disease, unspecified, without complications; I10 Essential (primary) hypertension; J45.909 Unspecified asthma, uncomplicated; M06.9 Rheumatoid arthritis, unspecified; Z90.49 Acquired absence of other specified parts of digestive tract; Z90.710 Acquired absence of both cervix and uterus; Z82.49 Family history of ischemic heart disease and other diseases of the circulatory system; Z80.9 Family history of malignant neoplasm, unspecified; Z79.1 Long term (current) use of non-steroidal anti-inflammatories (NSAID); Z79.899 Other long term (current) drug therapy
CPT/HCPCS: 36415; 87040; 87086; 82803; 85027; 87088; 80076; 80048; 81001; 87186; 71020; 71250; 36600; 94640 ×2; G0378; G0379; A9270 ×10; J1650 ×2; J7030 ×2; J1956; J3490; J7620

== ENCOUNTER 2016-10-22 20:48 | Emergency (ER) | payer MEDICARE, MEDICAID ==
--- NOTE | 2016-10-22 21:35 | ER Document Report ---
ED Medical Screen (RME) - General Stated Complaint: ARM LACERATION Time seen by provider: 21:31 Mode of Arrival: Ambulatory Notes: Patient reports being scratched by cat on her left forearm 2 days ago. Has been keeping it clean and applying antibiotic ointment to it. Patient does not know the vaccination status of the cat, and states she needs a tetanus shot. Denies being bitten by the cat. I have greeted and performed a rapid initial assessment of this patient. A comprehensive ED assessment and evaluation of the patient, analysis of test results and completion of the medical decision making process will be conducted by additional ED providers. TRAVEL OUTSIDE OF THE [place] IN LAST 30 DAYS: No - Related Data Allergies/Adverse Reactions: Penicillins Allergy (Severe, Verified 10/10/16 17:28) Anaphylaxis Sulfa (Sulfonamide Antibiotics) Allergy (Intermediate, Verified 10/10/16 17:28) iching, nausea ciprofloxacin [From Cipro] Allergy (Mild, Verified 10/10/16 17:28) itching, nausea meperidine HCl [From Demerol] Allergy (Mild, Verified 10/10/16 17:28) heart palpitations Past Medical History - Past Medical History Cardiac Medical History: Reports: Hx Hypertension Pulmonary Medical History: Reports: Hx Asthma Neurological Medical History: Denies: Hx Cerebrovascular Accident Renal/ Medical History: Denies: Hx Peritoneal Dialysis GI Medical History: Reports: Hx Crohn's Disease, Hx Diverticulitis, Hx Gastroesophageal Reflux Disease, Hx Hiatal Hernia, Hx Irritable Bowel, Hx Ulcer Musculoskeltal Medical History: Reports Hx Arthritis - rheumatoid, DDD, Reports Hx Musculoskeletal Deformity, Reports Hx Musculoskeletal Trauma Psychiatric Medical History: Reports: Hx Anxiety, Hx Depression Past Surgical History: Reports: Hx Abdominal Surgery - small intestine removal, Hx Appendectomy, Hx Bowel Surgery - small intestine, Hx Breast Surgery - biopsy , Hx Hysterectomy, Hx Neurologic Surgery - brain tumor removed, Hx Tonsillectomy. Denies: Hx Open Heart Surgery - Immunizations Immunizations up to date: Yes Hx Diphtheria, Pertussis, Tetanus Vaccination: Yes - 09/2010 Physical Exam - Skin Notes: 2 inch superficial appearing scratch to left forearm, but noticed multiple small scratches to both arms.
[2016-10-22] MEDS ORDERED: BACITRACIN ZINC OINTMENT 15 GM TP ONE (22:28)
[2016-10-22] MEDS ORDERED: ACETAMINOPHEN 325 MG TABLET PO ONE (22:28)
[2016-10-22] MEDS ORDERED: BENZONATATE 100 MG CAPSULE PO ONE (22:29)
--- NOTE | 2016-10-22 22:30 | ER Document Report ---
ED General - General Chief Complaint: Other Stated Complaint: ARM LACERATION Mode of Arrival: Ambulatory Notes: Patient is a 65-year-old female well-known to this emergency department, this is her eighth visit to the emergency department in 2017 who presents with concerns of a cat scratched her left forearm. States she sustained a scratch several days ago and has been applying topical hydrocortisone cream without improvement of the scratch. She denies any spreading redness from the area, pus from the wound, or constitutional symptoms and the scratch is described as being mildly itchy and uncomfortable. Nothing worsens that symptom. She has not seen her primary care doctor regarding today's concerns. She also is requesting a tetanus shot update. TRAVEL OUTSIDE OF THE [place] IN LAST 30 DAYS: No - Related Data Allergies/Adverse Reactions: Penicillins Allergy (Severe, Verified 10/22/16 21:32) Anaphylaxis Sulfa (Sulfonamide Antibiotics) Allergy (Intermediate, Verified 10/22/16 21:32) iching, nausea ciprofloxacin [From Cipro] Allergy (Mild, Verified 10/22/16 21:32) itching, nausea meperidine HCl [From Demerol] Allergy (Mild, Verified 10/22/16 21:32) heart palpitations Past Medical History - General Information source: Patient - Social History Smoking Status: Never Smoker Chew tobacco use (# tins/day): No Frequency of alcohol use: None Drug Abuse: None Lives with: Alone Family History: Arthritis, CAD, CVA, DM, Hyperlipidemia, Hypertension, Malignancy, Thyroid Disfunction - Past Medical History Cardiac Medical History: Reports: Hx Hypertension Pulmonary Medical History: Reports: Hx Asthma Neurological Medical History: Denies: Hx Cerebrovascular Accident Renal/ Medical History: Denies: Hx Peritoneal Dialysis GI Medical History: Reports: Hx Crohn's Disease, Hx Diverticulitis, Hx Gastroesophageal Reflux Disease, Hx Hiatal Hernia, Hx Irritable Bowel, Hx Ulcer Musculoskeltal Medical History: Reports Hx Arthritis - rheumatoid, DDD, Reports Hx Musculoskeletal Deformity, Reports Hx Musculoskeletal Trauma Psychiatric Medical History: Reports: Hx Anxiety, Hx Depression Past Surgical History: Reports: Hx Abdominal Surgery - small intestine removal, Hx Appendectomy, Hx Bowel Surgery - small intestine, Hx Breast Surgery - biopsy , Hx Hysterectomy, Hx Neurologic Surgery - brain tumor removed, Hx Tonsillectomy. Denies: Hx Open Heart Surgery - Immunizations Immunizations up to date: Yes Hx Diphtheria, Pertussis, Tetanus Vaccination: Yes - 09/2010 Hx Pneumococcal Vaccination: 08/24/10 Review of Systems - Review of Systems Notes: Constitutional: Negative for fever. HENT: Negative for sore throat. Eyes: Negative for visual changes. Cardiovascular: Negative for chest pain. Respiratory: Negative for shortness of breath. Gastrointestinal: Negative for abdominal pain, vomiting or diarrhea. Genitourinary: Negative for dysuria. Musculoskeletal: Negative for back pain. Skin: Positive for left forearm scratch Neurological: Negative for headaches, weakness or numbness. 10 point ROS negative except as marked above and in HPI. Physical Exam - Vital signs Vitals: Temp Pulse Resp BP Pulse Ox 97.8 F 70 18 143/66 H 99 10/22/16 21:34 10/22/16 21:34 10/22/16 21:34 10/22/16 21:34 10/22/16 21:34 Interpretation: Hypertensive Notes: PHYSICAL EXAMINATION: GENERAL: Well-appearing, well-nourished and in no acute distress. HEAD: Atraumatic, normocephalic. EYES: sclera anicteric, conjunctiva are normal. ENT: Moist mucous membranes. NECK: Normal range of motion LUNGS: Normal work of breathing HEART: 2+ radial pulses bilaterally EXTREMITIES: no pitting or edema. No cyanosis. NEUROLOGICAL: No focal neurological deficits. Moves all extremities spontaneously and on command. PSYCH: Excessive verbal content. Patient rapidly switches from one topic to the next. SKIN: Warm, Dry, normal turgor, there is a very faint, minimally present superficial scratch to the left central forearm. No surrounding erythema or purulent drainage Course - Re-evaluation Re-evalutation: 10/23/16 03:14 Patient presents for concerns of a scratch on her left forearm. Patient's frequent visits to the emergency department for complaints that do not appear to have any actual emergent criteria. There is no evidence of associated infection and patient is unable to clarify why she felt the need to come to the emergency department for this very small scratch tonight. I've instructed her to cover the scratch with antibiotic ointment and clean and dress the wound twice daily. At this time will discharge with return precautions and follow-up recommendations. Verbal discharge instructions given a the bedside and opportunity for questions given. Medication warnings reviewed. Patient is in agreement with this plan and has verbalized understanding of return precautions. - Vital Signs Vital signs: Temp Pulse Resp BP Pulse Ox 97.8 F 67 16 135/87 H 100 10/22/16 22:45 10/22/16 22:45 10/22/16 22:45 10/22/16 22:45 10/22/16 22:45 Discharge - Discharge Clinical Impression: Cough Scratch of forearm Qualifiers: Encounter type: initial encounter Laterality: left Qualified Code(s): S50.812A - Abrasion of left forearm, initial encounter Condition: Good Disposition: HOME, SELF-CARE Additional Instructions: Return immediately if you develop spreading redness around the wound, pus from the wound, worsening pain, or a fever of >100.4. Keep the area clean and dry. Wash gently with soap and water twice daily and cover with antibiotic ointment given here in the emergency department today. For your cough take Tessalon Perles that have been prescribed as needed Prescriptions: Benzonatate [Tessalon Perle 100 mg Capsule] 100 mg PO Q8HP PRN #40 cap PRN Reason:
[2016-10-22] MEDS ORDERED: DIPH/PERTUSS(ACELL)/TETANUS VAC/PF 0.5 ML SYR (>=10YO) IM ONE (22:31)
[2016-10-22 22:55] VITALS: BP 135/87
== END 2016-10-22 22:56 | disposition home or self-care (01) ==
LOC: ER 20:48
DX: S50.812A Abrasion of left forearm, initial encounter (principal); R05 Cough; W55.03XA Scratched by cat, initial encounter; Y92.009 Unspecified place in unspecified non-institutional (private) residence as the place of occurrence of the external cause; I10 Essential (primary) hypertension; Z90.710 Acquired absence of both cervix and uterus; Z88.0 Allergy status to penicillin; Z88.3 Allergy status to other anti-infective agents; Z88.2 Allergy status to sulfonamides; Z23 Encounter for immunization
CPT/HCPCS: 99282; 90715; A9270 ×2; J3490

== ENCOUNTER 2016-10-28 10:55 | Emergency (ER) | payer MEDICARE, MEDICAID ==
--- NOTE | 2016-10-28 11:04 | ER Document Report ---
ED Medical Screen (RME) - General Stated Complaint: POSSIBLE DEHYDRATION Notes: patient states she's felt "dried out". She has been tolerating PO, denies emesis , nausea, abdominal pain. States shes been drinking plenty of water, UOP has been normal. Admits to body pain and dizzyness since Tuesday. Denies fevers, chills, productive cough, urinary symptoms I have greeted and performed a rapid initial assessment of this patient. A comprehensive ED assessment and evaluation of the patient, analysis of test results and completion of the medical decision making process will be conducted by additional ED providers. TRAVEL OUTSIDE OF THE [place] IN LAST 30 DAYS: No - Related Data Allergies/Adverse Reactions: Penicillins Allergy (Severe, Verified 10/22/16 21:32) Anaphylaxis Sulfa (Sulfonamide Antibiotics) Allergy (Intermediate, Verified 10/22/16 21:32) iching, nausea ciprofloxacin [From Cipro] Allergy (Mild, Verified 10/22/16 21:32) itching, nausea meperidine HCl [From Demerol] Allergy (Mild, Verified 10/22/16 21:32) heart palpitations Past Medical History - Past Medical History Cardiac Medical History: Reports: Hx Hypertension Pulmonary Medical History: Reports: Hx Asthma Neurological Medical History: Denies: Hx Cerebrovascular Accident Renal/ Medical History: Denies: Hx Peritoneal Dialysis GI Medical History: Reports: Hx Crohn's Disease, Hx Diverticulitis, Hx Gastroesophageal Reflux Disease, Hx Hiatal Hernia, Hx Irritable Bowel, Hx Ulcer Musculoskeltal Medical History: Reports Hx Arthritis - rheumatoid, DDD, Reports Hx Musculoskeletal Deformity, Reports Hx Musculoskeletal Trauma Psychiatric Medical History: Reports: Hx Anxiety, Hx Depression Past Surgical History: Reports: Hx Abdominal Surgery - small intestine removal, Hx Appendectomy, Hx Bowel Surgery - small intestine, Hx Breast Surgery - biopsy , Hx Hysterectomy, Hx Neurologic Surgery - brain tumor removed, Hx Tonsillectomy. Denies: Hx Open Heart Surgery - Immunizations Immunizations up to date: Yes Hx Diphtheria, Pertussis, Tetanus Vaccination: Yes - 09/2010
[2016-10-28 11:30] LABS: ABSOLUTE BASOPHILS # (AUTO) 0.1 10^3/uL (0.0-0.2); ABSOLUTE EOSINOPHILS # (AUTO) 0.3 10^3/uL (0.0-0.6); ABSOLUTE LYMPHOCYTES (AUTO) 1.5 10^3/uL (0.5-4.7); ABSOLUTE MONOCYTES (AUTO) 0.6 10^3/uL (0.1-1.4); ABSOLUTE NEUT (AUTO) 5.5 10^3/uL (1.7-8.2); BASOPHILS % (AUTO) 0.7 % (0-2); EOSINOPHILS % (AUTO) 4.1 % (0-6); HEMATOCRIT 37.5 % (36.0-47.0); HEMOGLOBIN 12.5 g/dL (12.0-15.5); LYMPHOCYTES % (AUTO) 18.4 % (13-45); MEAN CORPUSCULAR HEMOGLOBIN 31.1 pg (27.0-33.4); MEAN CORPUSCULAR HGB CONC 33.4 g/dL (32.0-36.0); MEAN CORPUSCULAR VOLUME 93 fl (80-97); MONOCYTES % (AUTO) 7.9 % (3-13); RED BLOOD COUNT 4.02 10^6/uL (3.72-5.28); RED CELL DISTRIBUTION WIDTH 14.4 % (11.5-14.0); SEGMENTED NEUTROPHILS % (AUTO) 68.9 % (42-78)
[2016-10-28 11:34] LABS: APPEARANCE,URINE SLIGHTLY-CLOUDY; BILIRUBIN,URINE NEGATIVE (NEGATIVE); GLUCOSE, URINE NEGATIVE (NEGATIVE); KETONES,URINE NEGATIVE (NEGATIVE); LEUKOCYTE ESTERASE,URINE NEGATIVE (NEGATIVE); NITRITE,URINE NEGATIVE (NEGATIVE); PROTEIN,URINE NEGATIVE (NEGATIVE); UROBILINOGEN,URINE NEGATIVE mg/dL (<2.0)
[2016-10-28 11:53] LABS: ALANINE AMINOTRANSFERASE 23 U/L (9-52); ALBUMIN 4.2 g/dL (3.5-5.0); ALKALINE PHOSPHATASE 69 U/L (38-126); ANION GAP 13 (5-19); ASPARTATE AMINO TRANSFERASE 23 U/L (14-36); BILIRUBIN,TOTAL 0.8 mg/dL (0.2-1.3); BLOOD UREA NITROGEN 4 mg/dL (7-20); CALCIUM 9.4 mg/dL (8.4-10.2); CARBON DIOXIDE 23 mmol/L (22-30); CHLORIDE 104 mmol/L (98-107); CREATINE KINASE 29 U/L (30-135); CREATININE RESULT 0.67 mg/dL (0.52-1.25); GLUCOSE 102 mg/dL (75-110); POTASSIUM 4.3 mmol/L (3.6-5.0); SODIUM 139.8 mmol/L (137-145); TOTAL PROTEIN 7.3 g/dL (6.3-8.2)
--- NOTE | 2016-10-28 12:40 | ER Document Report ---
ED General - General Chief Complaint: Pain All Over Stated Complaint: POSSIBLE DEHYDRATION Notes: Patient is here to be evaluated for possible dehydration. She says that she feels "dried out really bad" for the past 4 days. She's feeling dizzy, "dry where I passed my bowels", cramping in the stomach for 2 days, and she says her voice sounds dry. Patient says she's had some cough and congestion. No vomiting or diarrhea. Was recently hospitalized here in this hospital for pneumonia and stayed in the hospital a couple of days, going home about 2 weeks ago. Patient is very well-known to this physician and the staff, having been to this emergency department countless times over the years, rarely having a significant or serious medical condition. TRAVEL OUTSIDE OF THE [place] IN LAST 30 DAYS: No - Related Data Allergies/Adverse Reactions: Penicillins Allergy (Severe, Verified 10/28/16 11:00) Anaphylaxis Sulfa (Sulfonamide Antibiotics) Allergy (Intermediate, Verified 10/28/16 11:00) iching, nausea ciprofloxacin [From Cipro] Allergy (Mild, Verified 10/28/16 11:00) itching, nausea meperidine HCl [From Demerol] Allergy (Mild, Verified 10/28/16 11:00) heart palpitations Past Medical History - Social History Smoking Status: Never Smoker Chew tobacco use (# tins/day): No Frequency of alcohol use: None Drug Abuse: None Family History: Reviewed & Not Pertinent, Arthritis, CAD, CVA, DM, Hyperlipidemia, Hypertension, Malignancy, Thyroid Disfunction Patient has suicidal ideation: No Patient has homicidal ideation: No - Past Medical History Cardiac Medical History: Reports: Hx Hypertension Pulmonary Medical History: Reports: Hx Asthma GI Medical History: Reports: Hx Crohn's Disease, Hx Diverticulitis, Hx Gastroesophageal Reflux Disease, Hx Hiatal Hernia, Hx Irritable Bowel, Hx Ulcer Musculoskeltal Medical History: Reports Hx Arthritis - rheumatoid, DDD, Reports Hx Musculoskeletal Deformity, Reports Hx Musculoskeletal Trauma Psychiatric Medical History: Reports: Hx Anxiety, Hx Depression Past Surgical History: Reports: Hx Abdominal Surgery - small intestine removal, Hx Appendectomy, Hx Bowel Surgery - small intestine, Hx Breast Surgery - biopsy , Hx Hysterectomy, Hx Neurologic Surgery - brain tumor removed, Hx Tonsillectomy - Immunizations Immunizations up to date: Yes Hx Diphtheria, Pertussis, Tetanus Vaccination: Yes - 09/2010 Hx Pneumococcal Vaccination: 08/24/10 Review of Systems - Review of Systems Notes: REVIEW OF SYSTEMS: CONSTITUTIONAL : Denies fever. EENT: Denies eye, ear, nose or mouth or throat pain but feels dry mouth. CARDIOVASCULAR: Denies chest pain. RESPIRATORY: Has some cough cough, chest congestion, but no shortness of breath. GASTROINTESTINAL: Denies abdominal pain or nausea, vomiting, or diarrhea. GENITOURINARY: Denies difficulty or painful urinating, urinary frequency, blood in urine. MUSCULOSKELETAL: Denies back or neck pain. Denies joint pain or swelling. SKIN: Denies rash or skin lesions. NEUROLOGICAL: Denies LOC or altered mental status. Denies sensory loss or motor deficits. ALL OTHER SYSTEMS REVIEWED AND NEGATIVE. Physical Exam - Vital signs Vitals: Temp Pulse Resp BP Pulse Ox 98.1 F 75 17 121/57 L 100 10/28/16 11:02 10/28/16 11:02 10/28/16 11:02 10/28/16 11:02 10/28/16 11:02 Interpretation: Normal - Notes Notes: PHYSICAL EXAMINATION: GENERAL: Well-appearing, in no acute distress. Extremely anxious, as is her usual demeanor. HEAD: Atraumatic, normocephalic. EYES: Pupils equal round and reactive to light, extraocular movements intact. ENT: oropharynx clear without exudates. Moist mucous membranes. NECK: Normal range of motion, supple. LUNGS: Breath sounds clear and equal bilaterally. HEART: Regular rate and rhythm without murmurs. ABDOMEN: Soft, nontender. No guarding or rebound. BACK: No tenderness throughout entire back. EXTREMITIES: Normal range of motion without pain. NEUROLOGICAL: Normal speech, normal gait. Normal sensory, motor, and reflex exams. Awake, alert, and oriented x3. Cranial nerves normal. PSYCH: Extremely anxious. SKIN: Warm, dry, no rashes. Course - Re-evaluation Re-evalutation: 10/28/16 20:52 Patient's entire lab workup is essentially normal. - Vital Signs Vital signs: Temp Pulse Resp BP Pulse Ox 97.3 F 73 17 105/75 100 10/28/16 12:46 10/28/16 12:46 10/28/16 12:46 10/28/16 12:46 10/28/16 12:46 - Laboratory Result Diagrams: 10/28/16 11:10 10/28/16 11:10 Laboratory results interpreted by me: 10/28/16 10/28/16 11:10 11:10 RDW 14.4 H BUN 4 L Creatine Kinase 29 L Discharge - Discharge Clinical Impression: Dry mouth Condition: Stable Disposition: HOME, SELF-CARE Additional Instructions: NORMAL EXAM AND WORKUP: At this time, your examination and workup show no significant abnormality. No significant abnormal physical findings were noted. All laboratory, EKG, and imaging (x-ray, CT scans, ultrasound) studies that were ordered show no significant abnormality. Although your examination and all studies that were ordered showed no significant abnormal finding, there are no examinations and no studies that are 100% accurate. There is always the possibility that some abnormality could exist and not be detected with physical examination or within the limits and capabilities of laboratory and other studies. You should return or follow up as you were instructed on your visit today for further evaluation if your symptoms do not resolve. Follow-up with your primary care physician in the next few days. FOLLOW-UP CARE: If you have been referred to a physician for follow-up care, call the physician s office for an appointment as you were instructed or within the next two days. If you experience worsening or a significant change in your symptoms, notify the physician immediately or return to the Emergency Department at any time for re-evaluation. Referrals: ARACELI CORTEZ MD [Primary Care Provider] - Follow up as needed
[2016-10-28 12:48] VITALS: BP 105/75
== END 2016-10-28 12:52 | disposition home or self-care (01) ==
LOC: ER 10:55
DX: R68.2 Dry mouth, unspecified (principal); R52 Pain, unspecified
CPT/HCPCS: 36415; 80053; 81001; 82550; 85025; 99284

== ENCOUNTER 2016-10-29 13:36 | Emergency (ER) | payer MEDICARE, MEDICAID ==
--- NOTE | 2016-10-29 14:24 | ER Document Report ---
ED Medical Screen (RME) - General Stated Complaint: POSSIBLE DEHYDRATION Notes: Patient states she was sent to the emergency room by her primary care physician for possible dehydration. Primary care physician sent Rx over for patient to have 2 bags of IV fluids. Patient denies fever, cold symptoms, or dysuria. No nausea or vomiting. No diarrhea I have greeted and performed a rapid initial assessment of this patient. A comprehensive ED assessment and evaluation of the patient, analysis of test results and completion of the medical decision making process will be conducted by additional ED providers. TRAVEL OUTSIDE OF THE [place] IN LAST 30 DAYS: No - Related Data Allergies/Adverse Reactions: Penicillins Allergy (Severe, Verified 10/28/16 11:00) Anaphylaxis Sulfa (Sulfonamide Antibiotics) Allergy (Intermediate, Verified 10/28/16 11:00) iching, nausea ciprofloxacin [From Cipro] Allergy (Mild, Verified 10/28/16 11:00) itching, nausea meperidine HCl [From Demerol] Allergy (Mild, Verified 10/28/16 11:00) heart palpitations Past Medical History - Past Medical History Cardiac Medical History: Reports: Hx Hypertension Pulmonary Medical History: Reports: Hx Asthma Neurological Medical History: Denies: Hx Cerebrovascular Accident Renal/ Medical History: Denies: Hx Peritoneal Dialysis GI Medical History: Reports: Hx Crohn's Disease, Hx Diverticulitis, Hx Gastroesophageal Reflux Disease, Hx Hiatal Hernia, Hx Irritable Bowel, Hx Ulcer Musculoskeltal Medical History: Reports Hx Arthritis - rheumatoid, DDD, Reports Hx Musculoskeletal Deformity, Reports Hx Musculoskeletal Trauma Psychiatric Medical History: Reports: Hx Anxiety, Hx Depression Past Surgical History: Reports: Hx Abdominal Surgery - small intestine removal, Hx Appendectomy, Hx Bowel Surgery - small intestine, Hx Breast Surgery - biopsy , Hx Hysterectomy, Hx Neurologic Surgery - brain tumor removed, Hx Tonsillectomy. Denies: Hx Open Heart Surgery - Immunizations Immunizations up to date: Yes Hx Diphtheria, Pertussis, Tetanus Vaccination: Yes - 09/2010 Physical Exam - Respiratory Respiratory status: No respiratory distress Breath sounds: Normal
[2016-10-29 15:33] LABS: ABSOLUTE BASOPHILS # (AUTO) 0.1 10^3/uL (0.0-0.2); ABSOLUTE EOSINOPHILS # (AUTO) 0.3 10^3/uL (0.0-0.6); ABSOLUTE LYMPHOCYTES (AUTO) 1.9 10^3/uL (0.5-4.7); ABSOLUTE MONOCYTES (AUTO) 0.5 10^3/uL (0.1-1.4); ABSOLUTE NEUT (AUTO) 4.8 10^3/uL (1.7-8.2); BASOPHILS % (AUTO) 1.3 % (0-2); EOSINOPHILS % (AUTO) 4.4 % (0-6); HEMATOCRIT 35.3 % (36.0-47.0); HEMOGLOBIN 12.1 g/dL (12.0-15.5); LYMPHOCYTES % (AUTO) 24.6 % (13-45); MEAN CORPUSCULAR HEMOGLOBIN 31.9 pg (27.0-33.4); MEAN CORPUSCULAR HGB CONC 34.2 g/dL (32.0-36.0); MEAN CORPUSCULAR VOLUME 93 fl (80-97); RED BLOOD COUNT 3.79 10^6/uL (3.72-5.28); RED CELL DISTRIBUTION WIDTH 14.4 % (11.5-14.0); SEGMENTED NEUTROPHILS % (AUTO) 63.7 % (42-78); WHITE BLOOD COUNT 7.6 10^3/uL (4.0-10.5)
[2016-10-29 15:39] LABS: APPEARANCE,URINE CLEAR; BILIRUBIN,URINE NEGATIVE (NEGATIVE); GLUCOSE, URINE NEGATIVE (NEGATIVE); KETONES,URINE NEGATIVE (NEGATIVE); LEUKOCYTE ESTERASE,URINE NEGATIVE (NEGATIVE); NITRITE,URINE NEGATIVE (NEGATIVE); PROTEIN,URINE NEGATIVE (NEGATIVE); URINE SPECIFIC GRAVITY 1.002; UROBILINOGEN,URINE NEGATIVE mg/dL (<2.0)
[2016-10-29 15:49] LABS: ALANINE AMINOTRANSFERASE 22 U/L (9-52); ALBUMIN 4.5 g/dL (3.5-5.0); ALKALINE PHOSPHATASE 65 U/L (38-126); ANION GAP 15 (5-19); ASPARTATE AMINO TRANSFERASE 22 U/L (14-36); BILIRUBIN,TOTAL 1.2 mg/dL (0.2-1.3); BLOOD UREA NITROGEN 6 mg/dL (7-20); CALCIUM 9.7 mg/dL (8.4-10.2); CARBON DIOXIDE 22 mmol/L (22-30); CHLORIDE 101 mmol/L (98-107); CREATININE RESULT 0.65 mg/dL (0.52-1.25); GLUCOSE 80 mg/dL (75-110); POTASSIUM 3.5 mmol/L (3.6-5.0); SODIUM 137.5 mmol/L (137-145); TOTAL PROTEIN 7.8 g/dL (6.3-8.2)
[2016-10-29] MEDS ORDERED: NORMAL SALINE 1000 ML 1,000 ML IV ONE ×2 (17:05→17:08)
--- NOTE | 2016-10-29 17:15 | ER Document Report ---
ED General - General Chief Complaint: Other Stated Complaint: POSSIBLE DEHYDRATION Mode of Arrival: Ambulatory Information source: Patient Notes: Pt presents from her pcp office Dr Caldwell with prescription for her to have 2 bags of IV fluids for dehydration. Pt reports her skin and body has been extremely dry. She reports her blood was thick when they nanda her labs. She denies f/v/d. I discussed labs with patient and she is insisting that she receive the IV fluids that Dr Caldwell ordered. TRAVEL OUTSIDE OF THE [place] IN LAST 30 DAYS: No - HPI Onset: Other Onset/Duration: Persistent Quality of pain: No pain Associated symptoms: None Exacerbated by: Denies Relieved by: Denies Similar symptoms previously: Yes Recently seen / treated by doctor: Yes - Related Data Allergies/Adverse Reactions: Penicillins Allergy (Severe, Verified 10/29/16 17:56) Anaphylaxis Sulfa (Sulfonamide Antibiotics) Allergy (Intermediate, Verified 10/29/16 17:56) iching, nausea ciprofloxacin [From Cipro] Allergy (Mild, Verified 10/29/16 17:56) itching, nausea meperidine HCl [From Demerol] Allergy (Mild, Verified 10/29/16 17:56) heart palpitations Past Medical History - General Information source: Patient - Social History Smoking Status: Never Smoker Chew tobacco use (# tins/day): No Frequency of alcohol use: None Drug Abuse: None Family History: Reviewed & Not Pertinent, Arthritis, CAD, CVA, DM, Hyperlipidemia, Hypertension, Malignancy, Thyroid Disfunction Patient has suicidal ideation: No Patient has homicidal ideation: No - Past Medical History Cardiac Medical History: Reports: Hx Hypertension Pulmonary Medical History: Reports: Hx Asthma Neurological Medical History: Denies: Hx Cerebrovascular Accident Renal/ Medical History: Denies: Hx Peritoneal Dialysis GI Medical History: Reports: Hx Crohn's Disease, Hx Diverticulitis, Hx Gastroesophageal Reflux Disease, Hx Hiatal Hernia, Hx Irritable Bowel, Hx Ulcer Musculoskeltal Medical History: Reports Hx Arthritis - rheumatoid, DDD, Reports Hx Musculoskeletal Deformity, Reports Hx Musculoskeletal Trauma Psychiatric Medical History: Reports: Hx Anxiety, Hx Depression Past Surgical History: Reports: Hx Abdominal Surgery - small intestine removal, Hx Appendectomy, Hx Bowel Surgery - small intestine, Hx Breast Surgery - biopsy , Hx Hysterectomy, Hx Neurologic Surgery - brain tumor removed, Hx Tonsillectomy. Denies: Hx Open Heart Surgery - Immunizations Immunizations up to date: Yes Hx Diphtheria, Pertussis, Tetanus Vaccination: Yes - 09/2010 Hx Pneumococcal Vaccination: 08/24/10 Review of Systems - Review of Systems Notes: Review HPI for review of systems., All other systems negative Constitutional: No symptoms reported EENT: No symptoms reported Cardiovascular: No symptoms reported Respiratory: No symptoms reported Gastrointestinal: No symptoms reported Genitourinary: No symptoms reported Female Genitourinary: No symptoms reported Musculoskeletal: No symptoms reported Skin: Dryness Hematologic/Lymphatic: No symptoms reported Neurological/Psychological: No symptoms reported Physical Exam - Vital signs Vitals: Temp Pulse BP Pulse Ox 98.7 F 64 133/67 H 100 10/29/16 13:43 10/29/16 13:43 10/29/16 13:43 10/29/16 13:43 - General General appearance: Appears well, Alert In distress: None - HEENT Head: Normocephalic Eyes: Normal Conjunctiva: Normal Mucous membranes: Normal Pharynx: Normal Neck: Normal - Respiratory Respiratory status: No respiratory distress Breath sounds: Normal - Cardiovascular Rhythm: Regular Heart sounds: Normal auscultation Murmur: No - Abdominal Inspection: Normal Distension: No distension Bowel sounds: Normal Tenderness: Nontender Organomegaly: No organomegaly - Extremities General upper extremity: Normal ROM, Normal strength General lower extremity: Normal ROM, Normal strength - Neurological Neuro grossly intact: Yes Cognition: Normal Orientation: AAOx4 Ji Coma Scale Eye Opening: Spontaneous [place] Coma Scale Verbal: Oriented Ji Coma Scale Motor: Obeys Commands [place] Coma Scale Total: 15 Speech: Normal Motor strength normal: LUE, RUE, LLE, RLE Sensory: Normal - Psychological Associated symptoms: Normal affect, Normal mood - Skin Skin Temperature: Warm Skin Moisture: Dry Skin Color: Normal Course - Re-evaluation Re-evalutation: 10/29/16 17:[address] oliveira, he advised to give patient iv fluids per dr caldwell orders. 10/29/16 pt received IV fluids, ambulated to BR, reports she feels 100% better. She reports her skin feels much better. Patient instructed to follow up with Dr. Cortez tomorrow for recheck. - Vital Signs Vital signs: Temp Pulse Resp BP Pulse Ox 98 F 72 16 130/69 H 100 10/29/16 19:39 10/29/16 19:39 10/29/16 19:39 10/29/16 19:39 10/29/16 19:39 - Laboratory Result Diagrams: 10/29/16 15:00 10/29/16 15:00 Laboratory results interpreted by me: 10/29/16 10/29/16 15:00 15:00 Hct 35.3 L RDW 14.4 H Potassium 3.5 L BUN 6 L Discharge - Discharge Clinical Impression: feeling dehydrated Condition: Good Disposition: HOME, SELF-CARE Instructions: Intravenous (IV) Fluids ([facility]) Additional Instructions: *You have been treated for feeling dehydrated *Follow up with Dr Caldwell tomorrow *Return to ED for worsening condition, changes, needs Referrals: ARACELI CORTEZ MD [Primary Care Provider] - Follow up tomorrow
[2016-10-29 19:40] VITALS: BP 130/69
== END 2016-10-29 19:41 | disposition home or self-care (01) ==
LOC: ER 13:36
DX: E86.0 Dehydration (principal); I10 Essential (primary) hypertension; J45.909 Unspecified asthma, uncomplicated; Z88.2 Allergy status to sulfonamides; Z88.1 Allergy status to other antibiotic agents; Z88.5 Allergy status to narcotic agent; Z88.0 Allergy status to penicillin
CPT/HCPCS: 36415; 80053; 81001; 85025; 99284

== ENCOUNTER 2016-10-31 14:30 | Emergency (ER) | payer MEDICARE, MEDICAID ==
--- NOTE | 2016-10-31 14:53 | ER Document Report ---
ED Medical Screen (RME) - General Stated Complaint: POSSIBLE INSECT BITE Mode of Arrival: Ambulatory Information source: Patient Notes: Patient presents to the emergency department with complaints of insect bite to her leg. She is not sure what it started. I have greeted and performed a rapid initial assessment of this patient. A comprehensive ED assessment and evaluation of the patient, analysis of test results and completion of the medical decision making process will be conducted by additional ED providers. TRAVEL OUTSIDE OF THE [place] IN LAST 30 DAYS: No - Related Data Allergies/Adverse Reactions: Penicillins Allergy (Severe, Verified 10/29/16 17:56) Anaphylaxis Sulfa (Sulfonamide Antibiotics) Allergy (Intermediate, Verified 10/29/16 17:56) iching, nausea ciprofloxacin [From Cipro] Allergy (Mild, Verified 10/29/16 17:56) itching, nausea meperidine HCl [From Demerol] Allergy (Mild, Verified 10/29/16 17:56) heart palpitations Past Medical History - Past Medical History Cardiac Medical History: Reports: Hx Hypertension Pulmonary Medical History: Reports: Hx Asthma Neurological Medical History: Denies: Hx Cerebrovascular Accident Renal/ Medical History: Denies: Hx Peritoneal Dialysis GI Medical History: Reports: Hx Crohn's Disease, Hx Diverticulitis, Hx Gastroesophageal Reflux Disease, Hx Hiatal Hernia, Hx Irritable Bowel, Hx Ulcer Musculoskeltal Medical History: Reports Hx Arthritis - rheumatoid, DDD, Reports Hx Musculoskeletal Deformity, Reports Hx Musculoskeletal Trauma Psychiatric Medical History: Reports: Hx Anxiety, Hx Depression Past Surgical History: Reports: Hx Abdominal Surgery - small intestine removal, Hx Appendectomy, Hx Bowel Surgery - small intestine, Hx Breast Surgery - biopsy , Hx Hysterectomy, Hx Neurologic Surgery - brain tumor removed, Hx Tonsillectomy. Denies: Hx Open Heart Surgery - Immunizations Immunizations up to date: Yes Hx Diphtheria, Pertussis, Tetanus Vaccination: Yes - 09/2010
[2016-10-31] MEDS ORDERED: ACETAMINOPHEN 325 MG TABLET PO ONE (15:54)
--- NOTE | 2016-10-31 15:57 | ER Document Report ---
ED Skin Rash/Insect Bite/Abscs - General Chief Complaint: Insect Bite Stated Complaint: POSSIBLE INSECT BITE Mode of Arrival: Ambulatory Notes: Patient is a 65 year old female who presents to the department with a bite on her left calf. She states she noticied it yesterday when it was swollen but she cleaned it, used ice and neosporin. today the swelling is nonexistent, no erythema, tenderness. TRAVEL OUTSIDE OF THE [place] IN LAST 30 DAYS: No - Related Data Allergies/Adverse Reactions: Penicillins Allergy (Severe, Verified 10/31/16 14:53) Anaphylaxis Sulfa (Sulfonamide Antibiotics) Allergy (Intermediate, Verified 10/31/16 14:53) iching, nausea ciprofloxacin [From Cipro] Allergy (Mild, Verified 10/31/16 14:53) itching, nausea meperidine HCl [From Demerol] Allergy (Mild, Verified 10/31/16 14:53) heart palpitations Past Medical History - General Information source: Patient - Social History Smoking Status: Never Smoker Chew tobacco use (# tins/day): No Frequency of alcohol use: None Drug Abuse: None Family History: Reviewed & Not Pertinent, Arthritis, CAD, CVA, DM, Hyperlipidemia, Hypertension, Malignancy, Thyroid Disfunction - Past Medical History Cardiac Medical History: Reports: Hx Hypertension Pulmonary Medical History: Reports: Hx Asthma Neurological Medical History: Denies: Hx Cerebrovascular Accident Renal/ Medical History: Denies: Hx Peritoneal Dialysis GI Medical History: Reports: Hx Crohn's Disease, Hx Diverticulitis, Hx Gastroesophageal Reflux Disease, Hx Hiatal Hernia, Hx Irritable Bowel, Hx Ulcer Musculoskeltal Medical History: Reports Hx Arthritis - rheumatoid, DDD, Reports Hx Musculoskeletal Deformity, Reports Hx Musculoskeletal Trauma Psychiatric Medical History: Reports: Hx Anxiety, Hx Depression Past Surgical History: Reports: Hx Abdominal Surgery - small intestine removal, Hx Appendectomy, Hx Bowel Surgery - small intestine, Hx Breast Surgery - biopsy , Hx Hysterectomy, Hx Neurologic Surgery - brain tumor removed, Hx Tonsillectomy. Denies: Hx Open Heart Surgery - Immunizations Immunizations up to date: Yes Hx Diphtheria, Pertussis, Tetanus Vaccination: Yes - 09/2010 Hx Pneumococcal Vaccination: 08/24/10 Review of Systems - Review of Systems Constitutional: No symptoms reported EENT: No symptoms reported Cardiovascular: No symptoms reported Respiratory: No symptoms reported Gastrointestinal: No symptoms reported Genitourinary: No symptoms reported Female Genitourinary: No symptoms reported Musculoskeletal: No symptoms reported Skin: See HPI Hematologic/Lymphatic: No symptoms reported Neurological/Psychological: No symptoms reported Physical Exam - Vital signs Vitals: Temp Pulse Resp BP Pulse Ox 98.2 F 75 20 134/69 H 100 10/31/16 14:53 10/31/16 14:53 10/31/16 14:53 10/31/16 14:53 10/31/16 14:53 Interpretation: Normal - Skin Skin Temperature: Warm Skin Moisture: Dry Skin Color: Normal Skin Turgor: Elastic Skin irregularity: other - skin abraision Location of irregularity: Extremities Character of irregularity: Linear, Other Irregularity with: negative: Swelling, Tenderness, Warmth, Lymphangitis, Induration, Thickening, Well defined border, Crusting, Inflammation, Weeping Course - Re-evaluation Re-evalutation: 10/31/16 16:11 Area of complaint is a superficial abrasion without any evidence of abscess or cellulitis. Instructed patient for skin cleaning and bacitracin as needed. - Vital Signs Vital signs: Temp Pulse Resp BP Pulse Ox 98.2 F 75 20 134/69 H 100 10/31/16 14:53 10/31/16 14:53 10/31/16 14:53 10/31/16 14:53 10/31/16 14:53 Discharge - Discharge Clinical Impression: Insect bite Qualifiers: Encounter type: initial encounter Qualified Code(s): W57.XXXA - Bitten or stung by nonvenomous insect and other nonvenomous arthropods, initial encounter Condition: Good Disposition: HOME, SELF-CARE Instructions: Sciatica ([facility]), Stretching Exercises for the Back ([facility]) Additional Instructions: Insect Bites You have been bitten by an insect. These bites can cause two types of swelling: an initial swelling due to insect saliva or injected poison, and a late reaction due to your body's allergic reaction. This initial local reaction may be uncomfortable but is not dangerous. Often there's an itchy "hive" at the bite location. This is treated with antihistamines, cold compresses, and resting the affected body part. The later reaction often develops about the second day. The entire area becomes very swollen, red, itchy, and tender. This is an allergic reaction. Your body is attacking the leftover insect saliva or venom. This type of allergy is unpleasant, but not dangerous. We treat this swelling with cortisone -type medicine. Sometimes we use antibiotics if we're worried about infection. Antihistamines help with the itch. Over the counter: Benadryl 25mg
[2016-10-31 16:51] VITALS: BP 119/78
== END 2016-10-31 16:15 | disposition home or self-care (01) ==
LOC: ER 14:30
DX: S80.862A Insect bite (nonvenomous), left lower leg, initial encounter (principal); W57.XXXA Bitten or stung by nonvenomous insect and other nonvenomous arthropods, initial encounter
CPT/HCPCS: 99281; A9270

== ENCOUNTER 2016-11-13 19:12 | Emergency (ER) | payer MEDICARE, MEDICAID ==
--- NOTE | 2016-11-13 19:34 | ER Document Report ---
ED Medical Screen (RME) - General Stated Complaint: BACK PAIN Mode of Arrival: Ambulatory Information source: Patient Notes: Patient presents with chronic back and leg pain. Denies fever vomiting diarrhea. She reports she needs a Toradol shot. I have greeted and performed a rapid initial assessment of this patient. A comprehensive ED assessment and evaluation of the patient, analysis of test results and completion of the medical decision making process will be conducted by additional ED providers. TRAVEL OUTSIDE OF THE [place] IN LAST 30 DAYS: No - Related Data Allergies/Adverse Reactions: Penicillins Allergy (Severe, Verified 10/31/16 14:53) Anaphylaxis Sulfa (Sulfonamide Antibiotics) Allergy (Intermediate, Verified 10/31/16 14:53) iching, nausea ciprofloxacin [From Cipro] Allergy (Mild, Verified 10/31/16 14:53) itching, nausea meperidine HCl [From Demerol] Allergy (Mild, Verified 10/31/16 14:53) heart palpitations Past Medical History - Past Medical History Cardiac Medical History: Reports: Hx Hypertension Pulmonary Medical History: Reports: Hx Asthma Neurological Medical History: Denies: Hx Cerebrovascular Accident Renal/ Medical History: Denies: Hx Peritoneal Dialysis GI Medical History: Reports: Hx Crohn's Disease, Hx Diverticulitis, Hx Gastroesophageal Reflux Disease, Hx Hiatal Hernia, Hx Irritable Bowel, Hx Ulcer Musculoskeltal Medical History: Reports Hx Arthritis - rheumatoid, DDD, Reports Hx Musculoskeletal Deformity, Reports Hx Musculoskeletal Trauma Psychiatric Medical History: Reports: Hx Anxiety, Hx Depression Past Surgical History: Reports: Hx Abdominal Surgery - small intestine removal, Hx Appendectomy, Hx Bowel Surgery - small intestine, Hx Breast Surgery - biopsy , Hx Hysterectomy, Hx Neurologic Surgery - brain tumor removed, Hx Tonsillectomy. Denies: Hx Open Heart Surgery - Immunizations Immunizations up to date: Yes Hx Diphtheria, Pertussis, Tetanus Vaccination: Yes - 09/2010 Physical Exam - Vital signs Vitals: Temp Pulse Resp BP Pulse Ox 98.2 F 69 16 125/78 100 11/13/16 19:31 11/13/16 19:31 11/13/16 19:31 11/13/16 19:31 11/13/16 19:31 Course - Vital Signs Vital signs: Temp Pulse Resp BP Pulse Ox 98.2 F 69 16 125/78 100 11/13/16 19:31 11/13/16 19:31 11/13/16 19:31 11/13/16 19:31 11/13/16 19:31
[2016-11-13] MEDS ORDERED: KETOROLAC TROMETHAMINE 60 MG/2 ML SDV IM ONE (22:46)
--- NOTE | 2016-11-13 22:50 | ER Document Report ---
ED General - General Chief Complaint: Back Pain Stated Complaint: BACK PAIN Mode of Arrival: Ambulatory Information source: Patient Notes: 65-year-old female presents to the emergency department requesting Toradol injection. Patient reports history of chronic lower back pain intermittently radiates down her left hip/buttocks area. States has had symptoms for > 5 years. Reports pain is usually improved after Toradol injection. Denies fever , recent injury or trauma, extremity weakness/numbness/tingling, saddle numbness , incontinence, urinary retention. Patient also complains of light sensitivity over the last year. Reports previous history of cataract and glaucoma surgery. Denies eye pain or any acute or recent changes in her vision or eye symptoms. States saw her primary care provider yesterday and has follow-up appointment on Tuesday. TRAVEL OUTSIDE OF THE [place] IN LAST 30 DAYS: No - HPI Onset/Duration: Intermittent, Persistent Severity: Moderate Pain Level: 3 Exacerbated by: Movement Relieved by: Sitting Similar symptoms previously: Yes Recently seen / treated by doctor: No - Related Data Allergies/Adverse Reactions: Penicillins Allergy (Severe, Verified 10/31/16 14:53) Anaphylaxis Sulfa (Sulfonamide Antibiotics) Allergy (Intermediate, Verified 10/31/16 14:53) iching, nausea ciprofloxacin [From Cipro] Allergy (Mild, Verified 10/31/16 14:53) itching, nausea meperidine HCl [From Demerol] Allergy (Mild, Verified 10/31/16 14:53) heart palpitations Past Medical History - General Information source: Patient - Social History Smoking Status: Never Smoker Chew tobacco use (# tins/day): No Frequency of alcohol use: None Drug Abuse: None Lives with: Family Family History: Reviewed & Not Pertinent, Arthritis, CAD, CVA, DM, Hyperlipidemia, Hypertension, Malignancy, Thyroid Disfunction Patient has suicidal ideation: No Patient has homicidal ideation: No - Past Medical History Cardiac Medical History: Reports: Hx Hypertension Pulmonary Medical History: Reports: Hx Asthma Neurological Medical History: Denies: Hx Cerebrovascular Accident Renal/ Medical History: Denies: Hx Peritoneal Dialysis GI Medical History: Reports: Hx Crohn's Disease, Hx Diverticulitis, Hx Gastroesophageal Reflux Disease, Hx Hiatal Hernia, Hx Irritable Bowel, Hx Ulcer Musculoskeltal Medical History: Reports Hx Arthritis - rheumatoid, DDD, Reports Hx Musculoskeletal Deformity, Reports Hx Musculoskeletal Trauma Psychiatric Medical History: Reports: Hx Anxiety, Hx Depression Past Surgical History: Reports: Hx Abdominal Surgery - small intestine removal, Hx Appendectomy, Hx Bowel Surgery - small intestine, Hx Breast Surgery - biopsy , Hx Hysterectomy, Hx Neurologic Surgery - brain tumor removed, Hx Tonsillectomy. Denies: Hx Open Heart Surgery - Immunizations Immunizations up to date: Yes Hx Diphtheria, Pertussis, Tetanus Vaccination: Yes - 09/2010 Hx Pneumococcal Vaccination: 08/24/10 Review of Systems - Review of Systems Constitutional: No symptoms reported EENT: See HPI Cardiovascular: No symptoms reported Respiratory: No symptoms reported Gastrointestinal: No symptoms reported Genitourinary: No symptoms reported Female Genitourinary: No symptoms reported Musculoskeletal: See HPI Skin: No symptoms reported Hematologic/Lymphatic: No symptoms reported Neurological/Psychological: No symptoms reported -: Yes All other systems reviewed and negative Physical Exam - Vital signs Vitals: Temp Pulse Resp BP Pulse Ox 98.2 F 69 16 125/78 100 11/13/16 19:31 11/13/16 19:31 11/13/16 19:31 11/13/16 19:31 11/13/16 19:31 Interpretation: Normal - General General appearance: Appears well, Alert In distress: None - HEENT Head: Normocephalic, Atraumatic Eyes: Normal Conjunctiva: Normal Extraocular movements intact: Yes Eyelashes: Normal Pupils: PERRL Lids everted for exam: bilateral: Normal Anterior chamber: Normal Fundascopic: Normal Nerve palsy: No Visual greene normal: Yes Ears: Normal External canal: Normal Tympanic membrane: Normal Sinus: Normal Nasal: Normal Mouth/Lips: Normal Mucous membranes: Normal, Moist Pharynx: Normal Neck: Normal - Respiratory Respiratory status: No respiratory distress Chest status: Nontender Breath sounds: Normal Chest palpation: Normal - Cardiovascular Rhythm: Regular Heart sounds: Normal auscultation Pulses: Normal: Radial Normal capillary refill: Yes - Abdominal Inspection: Normal Distension: No distension Bowel sounds: Normal Tenderness: Nontender Organomegaly: No organomegaly - Back Back: Normal, Nontender. No: Tender, Deformity/step-off, CVA tenderness, Vertebra tenderness, Scars, Scoliosis, Wounds, Other - Extremities General upper extremity: Normal inspection, Nontender, Normal color, Normal ROM , Normal strength, Normal temperature. No: Tender, Edema General lower extremity: Normal inspection, Nontender, Normal color, Normal ROM , Normal strength, Normal temperature, Normal weight bearing. No: Tender, Edema , Guille's sign - Neurological Neuro grossly intact: Yes Cognition: Normal Orientation: AAOx4 [place] Coma Scale Eye Opening: Spontaneous [place] Coma Scale Verbal: Oriented Ji Coma Scale Motor: Obeys Commands [place] Coma Scale Total: 15 Speech: Normal Motor strength normal: LUE, RUE, LLE, RLE Sensory: Normal - Psychological Associated symptoms: Normal affect, Normal mood - Skin Skin Temperature: Warm Skin Moisture: Dry Skin Color: Normal Course - Re-evaluation Re-evalutation: 11/13/16 22:55 Patient hemodynamically stable, in no distress. Patient is well-known to this emergency department due to frequent visits and this is her 12th visit in the last 3 months. The patient presents with back pain without signs of spinal cord compression, cauda equina syndrome, infection, aneurysm, or other serious etiology. The patient is neurologically intact, independently and steadily ambulatory without paresthesias or neurological deficits. Given the extremely low risk of these diagnoses further testing and evaluation for these possibilities does not appear to be indicated at this time. Patient appears stable for discharge and agrees with home care, follow-up with PCP, and ED return precautions. - Vital Signs Vital signs: Temp Pulse Resp BP Pulse Ox 98.2 F 69 16 125/78 100 11/13/16 19:31 11/13/16 19:31 11/13/16 19:31 11/13/16 19:31 11/13/16 19:31 Discharge - Discharge Clinical Impression: Low back pain Qualifiers: Chronicity: chronic Back pain laterality: right Sciatica presence: with sciatica Sciatica laterality: sciatica of right side Qualified Code(s): M54.41 - Lumbago with sciatica, right side Condition: Stable Disposition: HOME, SELF-CARE Instructions: Low Back Pain ([facility]), Sciatica ([facility]), Toradol Injection ([facility]), Warm Packs ([facility]), Ice Packs ([facility]) Additional Instructions: Keep your appointment and follow-up with your primary care provider on Tuesday. Return to the emergency department for any worsening symptoms or concerns. Referrals: EMMIE SUAREZ MD [ACTIVE STAFF] - Follow up in 3-5 days ARACELI CORTEZ MD [ACTIVE STAFF] - 11/15/16
[2016-11-13 23:05] VITALS: BP 145/67
== END 2016-11-13 23:00 | disposition home or self-care (01) ==
LOC: ER 19:12
DX: M54.41 Lumbago with sciatica, right side (principal); I10 Essential (primary) hypertension; Z88.0 Allergy status to penicillin; Z88.2 Allergy status to sulfonamides; Z88.3 Allergy status to other anti-infective agents; Z90.710 Acquired absence of both cervix and uterus; Z90.49 Acquired absence of other specified parts of digestive tract
CPT/HCPCS: 99283; 96372; J1885

== ENCOUNTER 2016-11-19 14:29 | Emergency (ER) | payer MEDICARE, MEDICAID ==
[2016-11-19 14:40] VITALS: BP 149/65
--- NOTE | 2016-11-19 14:43 | ER Document Report ---
ED Medical Screen (RME) - General Stated Complaint: ABNORMAL LABS Notes: Patient states she went to Dr. Sykes's office this morning because of she was having pain in her spine and sciatic nerve. Patient comes to the emergency room with a note stating patient wants tramadol and IV fluids to bags. Patient states she wants a Toradol shot. I have greeted and performed a rapid initial assessment of this patient. A comprehensive ED assessment and evaluation of the patient, analysis of test results and completion of the medical decision making process will be conducted by additional ED providers. TRAVEL OUTSIDE OF THE [place] IN LAST 30 DAYS: No - Related Data Allergies/Adverse Reactions: Penicillins Allergy (Severe, Verified 11/19/16 14:41) Anaphylaxis Sulfa (Sulfonamide Antibiotics) Allergy (Intermediate, Verified 11/19/16 14:41) iching, nausea ciprofloxacin [From Cipro] Allergy (Mild, Verified 11/19/16 14:41) itching, nausea meperidine HCl [From Demerol] Allergy (Mild, Verified 11/19/16 14:41) heart palpitations Past Medical History - Past Medical History Cardiac Medical History: Reports: Hx Hypertension Pulmonary Medical History: Reports: Hx Asthma Neurological Medical History: Denies: Hx Cerebrovascular Accident Renal/ Medical History: Denies: Hx Peritoneal Dialysis GI Medical History: Reports: Hx Crohn's Disease, Hx Diverticulitis, Hx Gastroesophageal Reflux Disease, Hx Hiatal Hernia, Hx Irritable Bowel, Hx Ulcer Musculoskeltal Medical History: Reports Hx Arthritis - rheumatoid, DDD, Reports Hx Musculoskeletal Deformity, Reports Hx Musculoskeletal Trauma Psychiatric Medical History: Reports: Hx Anxiety, Hx Depression Past Surgical History: Reports: Hx Abdominal Surgery - small intestine removal, Hx Appendectomy, Hx Bowel Surgery - small intestine, Hx Breast Surgery - biopsy , Hx Hysterectomy, Hx Neurologic Surgery - brain tumor removed, Hx Tonsillectomy. Denies: Hx Open Heart Surgery - Immunizations Immunizations up to date: Yes Hx Diphtheria, Pertussis, Tetanus Vaccination: Yes - 09/2010 Physical Exam - Vital signs Vitals: Temp Pulse Resp BP Pulse Ox 98.3 F 67 20 149/65 H 100 11/19/16 14:39 11/19/16 14:39 11/19/16 14:39 11/19/16 14:39 11/19/16 14:39 - Notes Notes: Patient in no distress. Normal gait, sits in chair with legs crossed without difficulty. Course - Vital Signs Vital signs: Temp Pulse Resp BP Pulse Ox 98.3 F 67 20 149/65 H 100 11/19/16 14:39 11/19/16 14:39 11/19/16 14:39 11/19/16 14:39 11/19/16 14:39
[2016-11-19] MEDS ORDERED: KETOROLAC TROMETHAMINE INJ/PF 30 MG/1 ML SDV IV ONE (16:07)
[2016-11-19] MEDS ORDERED: NORMAL SALINE 250 ML IV ONE (16:07)
--- NOTE | 2016-11-19 18:10 | ER Document Report ---
ED General - General Chief Complaint: Back Pain Stated Complaint: ABNORMAL LABS Mode of Arrival: Ambulatory Information source: Patient Notes: 65-year-old female presents demanding IV fluids and pain control for chronic back pain. Patient states she has not been drinking fluids as much as she would like. pt denies any other concerns . pt presents with prescription from her pcp TRAVEL OUTSIDE OF THE [place] IN LAST 30 DAYS: No - HPI Onset: Other Onset/Duration: Persistent Quality of pain: Achy Severity: Mild Pain Level: 1 Associated symptoms: Body/muscle aches Exacerbated by: Denies Relieved by: Denies Similar symptoms previously: No Recently seen / treated by doctor: No - Related Data Allergies/Adverse Reactions: Penicillins Allergy (Severe, Verified 11/19/16 14:41) Anaphylaxis Sulfa (Sulfonamide Antibiotics) Allergy (Intermediate, Verified 11/19/16 14:41) iching, nausea ciprofloxacin [From Cipro] Allergy (Mild, Verified 11/19/16 14:41) itching, nausea meperidine HCl [From Demerol] Allergy (Mild, Verified 11/19/16 14:41) heart palpitations Past Medical History - Social History Smoking Status: Never Smoker Cigarette use (# per day): No Chew tobacco use (# tins/day): No Smoking Education Provided: No Frequency of alcohol use: None Drug Abuse: None Family History: Reviewed & Not Pertinent, Arthritis, CAD, CVA, DM, Hyperlipidemia, Hypertension, Malignancy, Thyroid Disfunction Patient has suicidal ideation: No Patient has homicidal ideation: No - Past Medical History Cardiac Medical History: Reports: Hx Hypertension Pulmonary Medical History: Reports: Hx Asthma Neurological Medical History: Denies: Hx Cerebrovascular Accident Renal/ Medical History: Denies: Hx Peritoneal Dialysis GI Medical History: Reports: Hx Crohn's Disease, Hx Diverticulitis, Hx Gastroesophageal Reflux Disease, Hx Hiatal Hernia, Hx Irritable Bowel, Hx Ulcer Musculoskeltal Medical History: Reports Hx Arthritis - rheumatoid, DDD, Reports Hx Musculoskeletal Deformity, Reports Hx Musculoskeletal Trauma Psychiatric Medical History: Reports: Hx Anxiety, Hx Depression Past Surgical History: Reports: Hx Abdominal Surgery - small intestine removal, Hx Appendectomy, Hx Bowel Surgery - small intestine, Hx Breast Surgery - biopsy , Hx Hysterectomy, Hx Neurologic Surgery - brain tumor removed, Hx Tonsillectomy. Denies: Hx Open Heart Surgery - Immunizations Immunizations up to date: Yes Hx Diphtheria, Pertussis, Tetanus Vaccination: Yes - 09/2010 Hx Pneumococcal Vaccination: 08/24/10 Review of Systems - Review of Systems Notes: REVIEW OF SYSTEMS: CONSTITUTIONAL : Denies fever, chills, or sweats. Denies recent illness. States she is dehydrated EENT: Denies eye, ear, throat, or mouth pain or symptoms. Denies nasal or sinus congestion or discharge. Denies throat, tongue, or mouth swelling or difficulty swallowing. CARDIOVASCULAR: Denies chest pain. Denies palpitations or racing or irregular heart beat. Denies ankle edema. RESPIRATORY: Denies cough, cold, or chest congestion. Denies shortness of breath, difficulty breathing, or wheezing. GASTROINTESTINAL: Denies abdominal pain or distention. Denies nausea, vomiting , or diarrhea. Denies blood in vomitus, stools, or per rectum. Denies black, tarry stools. Denies constipation. GENITOURINARY: Denies difficulty urinating, painful urination, burning, frequency, blood in urine, or discharge. FEMALE GENITOURINARY: Denies vaginal bleeding, heavy or abnormal periods, irregular periods. Denies vaginal discharge or odor. MUSCULOSKELETAL: Admits to back pain SKIN: Denies rash, lesions or sores. HEMATOLOGIC : Denies easy bruising or bleeding. LYMPHATIC: Denies swollen, enlarged glands. NEUROLOGICAL: Denies confusion or altered mental status. Denies passing out or loss of consciousness. Denies dizziness or lightheadedness. Denies headache. Denies weakness or paralysis or loss of use of either side. Denies problems with gait or speech. Denies sensory loss, numbness, or tingling. Denies seizures. PSYCHIATRIC: Denies anxiety or stress. Denies depression, suicidal ideation, or homicidal ideation. ALL OTHER SYSTEMS REVIEWED AND NEGATIVE. Dictation was performed using [employer] voice recognition software PHYSICAL EXAMINATION: GENERAL: Well-appearing, well-nourished and in no acute distress. HEAD: Atraumatic, normocephalic. EYES: Pupils equal round extraocular movements intact, conjunctiva are normal. ENT: Nares patent NECK: Normal range of motion LUNGS: No respiratory distress Musculoskeletal: Normal range of motion NEUROLOGICAL: Normal speech, normal gait. PSYCH: Normal mood, normal affect. SKIN: Warm, Dry, normal turgor, no rashes or lesions noted. Physical Exam - Vital signs Vitals: Temp Pulse Resp BP Pulse Ox 98.3 F 67 20 149/65 H 100 11/19/16 14:39 11/19/16 14:39 11/19/16 14:39 11/19/16 14:39 11/19/16 14:39 Course - Re-evaluation Re-evalutation: 11/19/16 19:15 I completely disagree that the patient requires IV fluids or IV pain medication. These are chronic issues, patient is not dehydrated. Given that her primary care physician worked out a prescription for this I did abide by his request. I did speak with his primary care physician and explain my concerns he admits that the patient has been going to his office daily demanding IV fluids and that he finally caved Patient is stable for discharge After performing a Medical Screening Examination, I estimate there is LOW risk for ACUTE CORONARY SYNDROME, RESPIRATORY FAILURE, SEPSIS OR MENINGITIS, thus I consider the discharge disposition reasonable. The patient and I have discussed the diagnosis and risks, and we agree with discharging home with close follow- up. We also discussed returning to the Emergency Department immediately if new or worsening symptoms occur. We have discussed the symptoms which are most concerning (e.g., changing or worsening pain, trouble swallowing or breathing, neck stiffness, fever) that necessitate immediate return. - Vital Signs Vital signs: Temp Pulse Resp BP Pulse Ox 98.4 F 67 18 149/65 H 100 11/19/16 18:33 11/19/16 18:33 11/19/16 18:33 11/19/16 18:33 11/19/16 18:33 Discharge - Discharge Clinical Impression: Dehydration Back pain Qualifiers: Back pain location: low back pain Chronicity: chronic Back pain laterality: unspecified Sciatica presence: without sciatica Qualified Code(s): M54.5 - Low back pain Condition: Stable Disposition: HOME, SELF-CARE Instructions: Low Back Pain ([facility]) Referrals: ARACELI CORTEZ MD [Primary Care Provider] - Follow up tomorrow
== END 2016-11-19 18:37 | disposition home or self-care (01) ==
LOC: ER 14:29
DX: G89.29 Other chronic pain (principal); M54.5 Low back pain; E86.0 Dehydration; Z88.1 Allergy status to other antibiotic agents; Z55.2 Failed school examinations; Z87.892 Personal history of anaphylaxis; Z88.0 Allergy status to penicillin; I10 Essential (primary) hypertension; J45.909 Unspecified asthma, uncomplicated
CPT/HCPCS: 99283; 96374; J1885; J7050

== ENCOUNTER 2016-11-22 17:45 | Observation (INO) | payer MEDICARE, MEDICAID ==
[2016-11-22 22:04] LABS: ABSOLUTE BASOPHILS # (AUTO) 0.1 10^3/uL (0.0-0.2); ABSOLUTE EOSINOPHILS # (AUTO) 0.4 10^3/uL (0.0-0.6); ABSOLUTE LYMPHOCYTES (AUTO) 1.8 10^3/uL (0.5-4.7); ABSOLUTE MONOCYTES (AUTO) 0.6 10^3/uL (0.1-1.4); ABSOLUTE NEUT (AUTO) 4.3 10^3/uL (1.7-8.2); BASOPHILS % (AUTO) 1.5 % (0-2); EOSINOPHILS % (AUTO) 5.3 % (0-6); HEMATOCRIT 32.9 % (36.0-47.0); HEMOGLOBIN 11.4 g/dL (12.0-15.5); HGB HCT DIFFERENCE 1.3; LYMPHOCYTES % (AUTO) 25.4 % (13-45); MEAN CORPUSCULAR HEMOGLOBIN 32.3 pg (27.0-33.4); MEAN CORPUSCULAR HGB CONC 34.6 g/dL (32.0-36.0); MEAN CORPUSCULAR VOLUME 93 fl (80-97); RED BLOOD COUNT 3.53 10^6/uL (3.72-5.28); RED CELL DISTRIBUTION WIDTH 15.3 % (11.5-14.0); SEGMENTED NEUTROPHILS % (AUTO) 59.8 % (42-78); WHITE BLOOD COUNT 7.2 10^3/uL (4.0-10.5)
[2016-11-22 22:18] LABS: ALANINE AMINOTRANSFERASE 19 U/L (9-52); ALBUMIN 4.1 g/dL (3.5-5.0); ALKALINE PHOSPHATASE 59 U/L (38-126); ANION GAP 14 (5-19); ASPARTATE AMINO TRANSFERASE 15 U/L (14-36); BILIRUBIN,DIRECT 0.2 mg/dL (0.0-0.4); BILIRUBIN,TOTAL 0.6 mg/dL (0.2-1.3); BLOOD UREA NITROGEN 7 mg/dL (7-20); CALCIUM 9.7 mg/dL (8.4-10.2); CARBON DIOXIDE 21 mmol/L (22-30); CHLORIDE 107 mmol/L (98-107); CREATININE RESULT 0.64 mg/dL (0.52-1.25); GLUCOSE 87 mg/dL (75-110); POTASSIUM 3.8 mmol/L (3.6-5.0); TOTAL PROTEIN 6.9 g/dL (6.3-8.2)
[2016-11-22 22:47] LABS: THYROID STIMULATING HORMONE 1.92 uIU/mL (0.47-4.68)
[2016-11-23 04:32] LABS: APPEARANCE,URINE SLIGHTLY-CLOUDY; BILIRUBIN,URINE NEGATIVE (NEGATIVE); GLUCOSE, URINE NEGATIVE (NEGATIVE); KETONES,URINE NEGATIVE (NEGATIVE); LEUKOCYTE ESTERASE,URINE NEGATIVE (NEGATIVE); NITRITE,URINE NEGATIVE (NEGATIVE); PROTEIN,URINE NEGATIVE (NEGATIVE); URINE SPECIFIC GRAVITY 1.008; UROBILINOGEN,URINE NEGATIVE mg/dL (<2.0)
[2016-11-23] MEDS ORDERED: ALBUTEROL SULFATE HFA (90 MCG/PUFF) 200 PUFF/8.5 GM MDI IH PRN (08:06)
[2016-11-23] MEDS: NORMAL SALINE 1000 ML 1,000 ML IV PRN ×2 (08:27→17:38)
[2016-11-23] MEDS: SUCRALFATE SUSP 1 GM/10 ML UDCUP PO SCH ×2 (09:39→17:37)
[2016-11-23] MEDS: ACETAMINOPHEN WITH CODEINE #3 TABLET PO SCH ×2 (09:40→22:09)
[2016-11-23] MEDS: ENOXAPARIN SODIUM INJ 40 MG/0.4 ML DISP.SYRIN SUBCUT SCH (09:41)
[2016-11-23] MEDS ORDERED: CYANOCOBALAMIN (VITAMIN B-12) INJ 1000 MCG/1 ML VIAL IM SCH (10:00)
[2016-11-23] MEDS: METOPROLOL SUCCINATE 25 MG TAB.SR.24H PO SCH (10:39)
--- NOTE | 2016-11-23 19:31 | PDOC H&P ---
History of Present Illness Admission Date/PCP: 11/22/16 19:54 ARACELI CORTEZ MD History of Present Illness: MICHAEL CAMEJO is a 65 year old female, she has multiple complaints including dehydration, generalized body pain, diarrhea, she believes she needed to be admitted for IV fluid therapy, she was in the emergency room over the weekend for the same problem, I saw on Tuesday when she was requesting IV fluid therapy but I explained to her that I did not give IV fluid in the office and that she needed to go to emergency room for IV fluid therapy. She is admitted essentially for dehydration from diarrhea and to administer IV fluid. Past Medical History Cardiac Medical History: Reports: Hypertension Pulmonary Medical History: Reports: Asthma GI Medical History: Reports: Gastroesophageal Reflux Disease Musculoskeltal Medical History: Reports: Arthritis - rheumatoid, DDD Psychiatric Medical History: Reports: Depression Hematology: Reports: Anemia - NO CURRENT MEDS Past Surgical History Past Surgical History: Reports: Appendectomy, Hysterectomy, Tonsillectomy Social History Smoking Status: Never Smoker Frequency of Alcohol Use: None Hx Recreational Drug Use: No Drugs: None Hx Prescription Drug Abuse: No Family History Family History: Reviewed & Not Pertinent, Arthritis, CAD, CVA, DM, Hyperlipidemia, Hypertension, Malignancy, Thyroid Disfunction Parental Family History Reviewed: Yes Children Family History Reviewed: Yes Sibling(s) Family History Reviewed.: Yes Medication/Allergy Home Medications: Acetaminophen with Codeine [Acetaminophen-Cod #3 Tablet] 1 tab PO Q12 11/22/16 Albuterol Sulfate [Proair Hfa Inhalation Aerosol 8.5 gm Mdi] 2 puff IH Q4 PRN Alprazolam [Xanax 0.5 mg Tablet] 0.5 mg PO Q12 11/22/16 Benzonatate [Tessalon Perles 100 mg Capsule] 100 mg PO Q8HP PRN 11/22/16 Cyanocobalamin (Vitamin B-12) [Vitamin B-12 Inj 1000 Mcg/1 ml Vial] 1,000 mcg IM [id number] 11/22/16 Meclizine HCl [Antivert 25 mg Tablet] 25 mg PO Q8 11/22/16 Metoprolol Succinate [Toprol Xl 25 mg Tab.sr] 25 mg PO DAILY 11/22/16 Ondansetron [Zofran Odt 4 mg Tablet] 4 mg PO Q8 11/22/16 Raloxifene HCl [Evista 60 mg Tablet] 60 mg PO DAILY 11/22/16 Sucralfate [Carafate Susp 1 Gm/10 Ml Udcup] 1 gm PO BID 11/22/16 Triamcinolone Acetonide [Aristocort 0.1% Cream 15 gm] 1 applic TP BID 11/22/16 Allergies/Adverse Reactions: Penicillins Allergy (Severe, Verified 11/22/16 18:30) Anaphylaxis Sulfa (Sulfonamide Antibiotics) Allergy (Intermediate, Verified 11/22/16 18:30) iching, nausea ciprofloxacin [From Cipro] Allergy (Mild, Verified 11/22/16 18:30) itching, nausea meperidine HCl [From Demerol] Allergy (Mild, Verified 11/22/16 18:30) heart palpitations Review of Systems Constitutional: PRESENT: fatigue, fever(s) Eyes: PRESENT: visual disturbances Cardiovascular: PRESENT: palpitations Respiratory: PRESENT: cough Gastrointestinal: PRESENT: diarrhea Musculoskeletal: PRESENT: back pain Psychiatric: PRESENT: depression Endocrine: PRESENT: flushing Physical Exam Vital Signs: Temp Pulse Resp BP Pulse Ox 98.3 F 60 16 110/60 100 11/23/16 16:00 11/23/16 16:00 11/23/16 16:00 11/23/16 16:00 11/23/16 16:00 Intake & Output 11/22/16 11/23/16 11/24/16 06:59 06:59 06:59 Intake Total 480 1441 Output Total 900 Balance 480 541 General appearance: PRESENT: no acute distress, well-developed, well-nourished Eye exam: PRESENT: PERRLA Mouth exam: PRESENT: dry mucosa Neck exam: PRESENT: full ROM Respiratory exam: PRESENT: clear to auscultation franky Cardiovascular exam: PRESENT: RRR, +S1, +S2 GI/Abdominal exam: PRESENT: normal bowel sounds, soft Rectal exam: PRESENT: deferred Neurological exam: PRESENT: alert. ABSENT: motor sensory deficit Psychiatric exam: PRESENT: anxious Skin exam: PRESENT: dry, intact, warm. ABSENT: cyanosis, rash Results Laboratory Results: 11/22/16 21:50 11/22/16 21:50 11/22/16 11/22/16 11/22/16 21:50 21:50 21:50 WBC 7.2 RBC 3.53 L Hgb 11.4 L Hct 32.9 L MCV 93 MCH 32.3 MCHC 34.6 RDW 15.3 H Plt Count 380 Seg Neutrophils % 59.8 Lymphocytes % 25.4 Monocytes % 8.0 Eosinophils % 5.3 Basophils % 1.5 Absolute Neutrophils 4.3 Absolute Lymphocytes 1.8 Absolute Monocytes 0.6 Absolute Eosinophils 0.4 Absolute Basophils 0.1 Sodium 142.0 Potassium 3.8 Chloride 107 Carbon Dioxide 21 L Anion Gap 14 BUN 7 Creatinine 0.64 Est GFR ( Amer) > 60 Est GFR (Non-Af Amer) > 60 Glucose 87 Calcium 9.7 Total Bilirubin 0.6 AST 15 ALT 19 Alkaline Phosphatase 59 Total Protein 6.9 Albumin 4.1 TSH 1.92 Free T4 1.11 Urine Color Urine Appearance Urine pH Ur Specific [place] Urine Protein Urine Glucose (UA) Urine Ketones Urine Blood Urine Nitrite Ur Leukocyte Esterase Urine WBC (Auto) Urine RBC (Auto) 11/23/16 03:30 WBC RBC Hgb Hct MCV MCH MCHC RDW Plt Count Seg Neutrophils % Lymphocytes % Monocytes % Eosinophils % Basophils % Absolute Neutrophils Absolute Lymphocytes Absolute Monocytes Absolute Eosinophils Absolute Basophils Sodium Potassium Chloride Carbon Dioxide Anion Gap BUN Creatinine Est GFR ( Amer) Est GFR (Non-Af Amer) Glucose Calcium Total Bilirubin AST ALT Alkaline Phosphatase Total Protein Albumin TSH Free T4 Urine Color YELLOW Urine Appearance SLIGHTLY-CLOUDY Urine pH 6.0 Ur Specific [place] 1.008 Urine Protein NEGATIVE Urine Glucose (UA) NEGATIVE Urine Ketones NEGATIVE Urine Blood NEGATIVE Urine Nitrite NEGATIVE Ur Leukocyte Esterase NEGATIVE Urine WBC (Auto) 1 Urine RBC (Auto) 0 Impressions: Chest X-Ray 11/22/16 00:00 IMPRESSION: NO SIGNIFICANT RADIOGRAPHIC FINDING IN THE CHEST. Assessment & Plan - Diagnosis (1) Dehydration Is this a current diagnosis for this admission?: YesPlan: She is admitted for the management of dehydration, she be treated with IV fluid. (2) Diarrhea Qualifiers: Diarrhea type: unspecified type Qualified Code(s): R19.7 - Diarrhea , unspecified Is this a current diagnosis for this admission?: Yes
[2016-11-24] MEDS: SUCRALFATE SUSP 1 GM/10 ML UDCUP PO SCH ×2 (10:34→17:36)
[2016-11-24] MEDS: METOPROLOL SUCCINATE 25 MG TAB.SR.24H PO SCH (10:34)
[2016-11-24] MEDS: ENOXAPARIN SODIUM INJ 40 MG/0.4 ML DISP.SYRIN SUBCUT SCH (10:34)
[2016-11-24] MEDS: ACETAMINOPHEN WITH CODEINE #3 TABLET PO SCH (10:34)
--- NOTE | 2016-11-24 17:06 | PDOC DISCHARGE SUMMARY ---
General - Admit/Disc Date/PCP Admission Date/Primary Care Provider: 11/22/16 20:42 ARACELI CORTEZ MD Discharge Date: 11/24/16 - Discharge Diagnosis (1) Dehydration Is this a current diagnosis for this admission?: Yes (2) Diarrhea Is this a current diagnosis for this admission?: Yes - Additional Information Home Medications: Acetaminophen with Codeine [Acetaminophen-Cod #3 Tablet] 1 tab PO Q12 11/22/16 Albuterol Sulfate [Proair HFA Inhalation Aerosol 8.5 gm MDI] 2 puff IH Q4 PRN Alprazolam [Xanax 0.5 mg Tablet] 0.5 mg PO Q12 11/22/16 Benzonatate [Tessalon Perles 100 mg Capsule] 100 mg PO Q8HP PRN 11/22/16 Cyanocobalamin (Vitamin B-12) [Vitamin B-12 Inj 1000 Mcg/1 ml Vial] 1,000 mcg IM [id number] 11/22/16 Meclizine HCl [Antivert 25 mg Tablet] 25 mg PO Q8 11/22/16 Metoprolol Succinate [Toprol Xl 25 mg Tab.sr] 25 mg PO DAILY 11/22/16 Ondansetron [Zofran Odt 4 mg Tablet] 4 mg PO Q8 11/22/16 Raloxifene HCl [Evista 60 mg Tablet] 60 mg PO DAILY 11/22/16 Sucralfate [Carafate Susp 1 gm/10 ml Udcup] 1 gm PO BID 11/22/16 Triamcinolone Acetonide [Aristocort 0.1% Cream] 1 applic TP BID 11/22/16 History of Present Illness History of Present Illness: MICHAEL CAMEJO is a 65 year old female, she has multiple complaints including dehydration, generalized body pain, diarrhea, she believes she needed to be admitted for IV fluid therapy, she was in the emergency room over the weekend for the same problem, I saw on Tuesday when she was requesting IV fluid therapy but I explained to her that I did not give IV fluid in the office and that she needed to go to emergency room for IV fluid therapy. She is admitted essentially for dehydration from diarrhea and to administer IV fluid. Hospital Course Hospital Course: She was admitted for dehydration due to diarrhea she was given IV fluid, she was brought in for observation Physical Exam Vital Signs: Temp Pulse Resp BP Pulse Ox 98.2 F 68 21 H 127/67 H 100 11/24/16 15:52 11/24/16 15:52 11/24/16 15:52 11/24/16 15:52 11/24/16 15:52 Intake & Output 11/23/16 11/24/16 11/25/16 06:59 06:59 06:59 Intake Total 480 2111 Output Total 900 Balance 480 1211 General appearance: PRESENT: no acute distress, well-developed, well-nourished Head exam: PRESENT: atraumatic, normocephalic Eye exam: PRESENT: conjunctiva pink, EOMI, PERRLA Ear exam: PRESENT: normal external ear exam Mouth exam: PRESENT: moist, tongue midline Neck exam: PRESENT: full ROM Respiratory exam: PRESENT: clear to auscultation franky Cardiovascular exam: PRESENT: RRR, +S1, +S2 Vascular exam: PRESENT: normal capillary refill GI/Abdominal exam: PRESENT: normal bowel sounds, soft Rectal exam: PRESENT: deferred Neurological exam: PRESENT: alert, awake, oriented to person, oriented to place , oriented to time, oriented to situation, CN II-XII grossly intact Psychiatric exam: PRESENT: appropriate affect, normal mood Skin exam: PRESENT: dry, intact, warm Results Laboratory Results: 11/22/16 21:50 11/22/16 21:50 Impressions: Chest X-Ray 11/22/16 00:00 IMPRESSION: NO SIGNIFICANT RADIOGRAPHIC FINDING IN THE CHEST.
[2016-11-24 19:57] VITALS: BP 110/60
== END 2016-11-24 21:30 | disposition home or self-care (01) ==
LOC: ER 17:45 → INTOOBSV 19:54 → 2N 19:54 → UNDOADMOB 19:54 → 2N 20:42
PROVIDERS: ADMIT Internal Medicine; ATTEND Internal Medicine
DX: E86.0 Dehydration (principal); R19.7 Diarrhea, unspecified; R52 Pain, unspecified; I10 Essential (primary) hypertension; J45.909 Unspecified asthma, uncomplicated; K21.9 Gastro-esophageal reflux disease without esophagitis
CPT/HCPCS: 99282; 36415; 84439; 84443; 85025; 80076; 80048; 81001; 87493 ×2; 71020; G0378 ×3; G0379; A9270 ×4; J1650 ×2; J7030; J3490

== ENCOUNTER 2016-11-27 20:17 | Emergency (ER) | payer MEDICARE, MEDICAID ==
--- NOTE | 2016-11-27 22:53 | ER Document Report ---
HPI - HPI Patient complains to provider of: blood pressure concern Onset: This evening Onset/Duration: Sudden Quality of pain: No pain Pain Level: Denies Context: Patient presents emergency department with complaints of elevated blood pressure. She reports she took it this evening and it was 150 so she came to the emergency department via EMS. She denies other symptoms such as headache, chest pain, fever vomiting diarrhea. Patient is a frequent visitor to the emergency department. She is nontoxic looking, no distress. While she is here she's also asking for something for her bones. Associated Symptoms: None Exacerbated by: Denies Relieved by: Denies Similar symptoms previously: Yes Recently seen / treated by doctor: Yes - REPRODUCTIVE LMP: na Reproductive: DENIES: : - DERM Skin Color: Normal Past Medical History - General Information source: Patient - Social History Smoking Status: Unknown if Ever Smoked Cigarette use (# per day): No Frequency of alcohol use: None Drug Abuse: None Lives with: Alone Family History: Reviewed & Not Pertinent, Arthritis, CAD, CVA, DM, Hyperlipidemia, Hypertension, Malignancy, Thyroid Disfunction Patient has suicidal ideation: No Patient has homicidal ideation: No - Past Medical History Cardiac Medical History: Reports: Hx Hypertension Pulmonary Medical History: Reports: Hx Asthma Neurological Medical History: Denies: Hx Cerebrovascular Accident Renal/ Medical History: Denies: Hx Peritoneal Dialysis GI Medical History: Reports: Hx Gastroesophageal Reflux Disease, Hx Irritable Bowel, Hx Ulcer Musculoskeltal Medical History: Reports Hx Arthritis - rheumatoid, DDD, Reports Hx Musculoskeletal Deformity, Reports Hx Musculoskeletal Trauma Psychiatric Medical History: Reports: Hx Anxiety, Hx Depression Past Surgical History: Reports: Hx Abdominal Surgery - small intestine removal, Hx Appendectomy, Hx Bowel Surgery - small intestine, Hx Breast Surgery - biopsy , Hx Hysterectomy, Hx Neurologic Surgery - brain tumor removed, Hx Tonsillectomy. Denies: Hx Open Heart Surgery - Immunizations Immunizations up to date: Yes Hx Diphtheria, Pertussis, Tetanus Vaccination: Yes - 09/2010 Hx Pneumococcal Vaccination: 08/24/10 Vertical Provider Document - CONSTITUTIONAL Agree With Documented VS: Yes Exam Limitations: No Limitations General Appearance: WD/WN, No Apparent Distress - INFECTION CONTROL TRAVEL OUTSIDE OF THE [place] IN LAST 30 DAYS: No - HEENT HEENT: Atraumatic, Normocephalic - NECK Neck: Normal Inspection, Supple. negative: Lymphadenopathy-Left, Lymphadenopathy-Right - RESPIRATORY Respiratory: Breath Sounds Normal, No Respiratory Distress O2 Sat by Pulse Oximetry: 100 - CARDIOVASCULAR Cardiovascular: Regular Rate - GI/ABDOMEN Gastrointestinal: Abdomen Soft, Abdomen Non-Tender - NEURO Level of Consciousness: Awake, Alert, Appropriate Motor/Sensory: No Motor Deficit - DERM Integumentary: Warm, Dry Course - Re-evaluation Re-evalutation: 11/27/16 Patient was instructed to monitor blood pressure keep a journal and follow-up with Dr. Cortez on Tuesday. We also discussed ways to decrease the blood pressure to include monitoring her diet and exercise. She was instructed to follow up with Dr. Cortez regarding her concerns for her bones. - Vital Signs Vital signs: Temp Pulse Resp BP Pulse Ox 97.7 F 68 20 144/73 H 100 11/27/16 20:52 11/27/16 20:52 11/27/16 20:52 11/27/16 20:52 11/27/16 20:52 Discharge - Discharge Clinical Impression: Elevated blood pressure reading Condition: Stable Disposition: HOME, SELF-CARE Additional Instructions: *You have been evaluated for elevated blood pressure reading *Monitor your blood pressure as discussed, write down and take results to Dr. Caldwell *Follow up with Dr Caldwell Tuesday with the results *Return to ED for worsening condition, changes, needs, concerns Monitor your blood pressure. Your blood pressure was elevated today. This may be because you were anxious, in pain or because you need medication. It is important to follow up with your primary care provider for full evaluation. Forms: Elevated Blood Pressure Referrals: ARACELI CORTEZ MD [Primary Care Provider] - Follow up in 3-5 days
[2016-11-27 23:09] VITALS: BP 145/71
== END 2016-11-27 23:07 | disposition home or self-care (01) ==
LOC: ER 20:17
DX: R03.0 Elevated blood-pressure reading, without diagnosis of hypertension (principal)
CPT/HCPCS: 99282

== ENCOUNTER 2016-12-12 16:37 | Emergency (ER) | payer MEDICARE, MEDICAID ==
--- NOTE | 2016-12-12 17:04 | ER Document Report ---
ED Medical Screen (RME) - General Chief Complaint: Abdominal Pain Stated Complaint: ABDOMINAL PAIN Notes: Patient with a history of IBS who says that her rectum feels inflamed and on fire. She's had 3 bowel movements a day. Says she has rectal bleeding some. This patient has countless visits to this emergency department over many years. TRAVEL OUTSIDE OF THE [place] IN LAST 30 DAYS: No - Related Data Allergies/Adverse Reactions: Penicillins Allergy (Severe, Verified 12/12/16 16:54) Anaphylaxis Sulfa (Sulfonamide Antibiotics) Allergy (Intermediate, Verified 12/12/16 16:54) iching, nausea ciprofloxacin [From Cipro] Allergy (Mild, Verified 12/12/16 16:54) itching, nausea meperidine HCl [From Demerol] Allergy (Mild, Verified 12/12/16 16:54) heart palpitations Past Medical History - Past Medical History Cardiac Medical History: Reports: Hx Hypertension Pulmonary Medical History: Reports: Hx Asthma Neurological Medical History: Denies: Hx Cerebrovascular Accident Renal/ Medical History: Denies: Hx Peritoneal Dialysis GI Medical History: Reports: Hx Gastroesophageal Reflux Disease, Hx Irritable Bowel, Hx Ulcer Musculoskeltal Medical History: Reports Hx Arthritis - rheumatoid, DDD, Reports Hx Musculoskeletal Deformity, Reports Hx Musculoskeletal Trauma Psychiatric Medical History: Reports: Hx Anxiety, Hx Depression Past Surgical History: Reports: Hx Abdominal Surgery - small intestine removal, Hx Appendectomy, Hx Bowel Surgery - small intestine, Hx Breast Surgery - biopsy , Hx Hysterectomy, Hx Neurologic Surgery - brain tumor removed, Hx Tonsillectomy. Denies: Hx Open Heart Surgery - Immunizations Immunizations up to date: Yes Hx Diphtheria, Pertussis, Tetanus Vaccination: Yes - 09/2010 Physical Exam - Vital signs Vitals: Temp Pulse Resp BP Pulse Ox 97.7 F 77 16 147/64 H 100 12/12/16 16:54 12/12/16 16:54 12/12/16 16:54 12/12/16 16:54 12/12/16 16:54 Course - Vital Signs Vital signs: Temp Pulse Resp BP Pulse Ox 97.7 F 77 16 147/64 H 100 12/12/16 16:54 12/12/16 16:54 12/12/16 16:54 12/12/16 16:54 12/12/16 16:54
[2016-12-12 17:28] LABS: ABSOLUTE BASOPHILS # (AUTO) 0.1 10^3/uL (0.0-0.2); ABSOLUTE EOSINOPHILS # (AUTO) 0.3 10^3/uL (0.0-0.6); ABSOLUTE LYMPHOCYTES (AUTO) 1.9 10^3/uL (0.5-4.7); ABSOLUTE MONOCYTES (AUTO) 0.5 10^3/uL (0.1-1.4); ABSOLUTE NEUT (AUTO) 5.9 10^3/uL (1.7-8.2); EOSINOPHILS % (AUTO) 3.7 % (0-6); HEMATOCRIT 36.4 % (36.0-47.0); HEMOGLOBIN 12.1 g/dL (12.0-15.5); HGB HCT DIFFERENCE -0.1; LYMPHOCYTES % (AUTO) 21.4 % (13-45); MEAN CORPUSCULAR HEMOGLOBIN 30.8 pg (27.0-33.4); MEAN CORPUSCULAR HGB CONC 33.2 g/dL (32.0-36.0); MEAN CORPUSCULAR VOLUME 93 fl (80-97); MONOCYTES % (AUTO) 6.1 % (3-13); RED BLOOD COUNT 3.92 10^6/uL (3.72-5.28); RED CELL DISTRIBUTION WIDTH 14.4 % (11.5-14.0); SEGMENTED NEUTROPHILS % (AUTO) 67.8 % (42-78); WHITE BLOOD COUNT 8.7 10^3/uL (4.0-10.5)
[2016-12-12 17:43] LABS: ALANINE AMINOTRANSFERASE 16 U/L (9-52); ALBUMIN 4.5 g/dL (3.5-5.0); ALKALINE PHOSPHATASE 80 U/L (38-126); ANION GAP 15 (5-19); ASPARTATE AMINO TRANSFERASE 19 U/L (14-36); BILIRUBIN,DIRECT 0.1 mg/dL (0.0-0.4); BILIRUBIN,TOTAL 0.5 mg/dL (0.2-1.3); BLOOD UREA NITROGEN 5 mg/dL (7-20); CALCIUM 9.6 mg/dL (8.4-10.2); CARBON DIOXIDE 24 mmol/L (22-30); CHLORIDE 99 mmol/L (98-107); CREATININE RESULT 0.64 mg/dL (0.52-1.25); GLUCOSE 94 mg/dL (75-110); LIPASE 61.8 U/L (23-300); POTASSIUM 4.1 mmol/L (3.6-5.0); SODIUM 137.7 mmol/L (137-145); TOTAL PROTEIN 7.5 g/dL (6.3-8.2)
--- NOTE | 2016-12-12 18:39 | ER Document Report ---
ED General - General Chief Complaint: Abdominal Pain Stated Complaint: ABDOMINAL PAIN Notes: Patient is a 65-year-old female well known to this emergency department with her 16th presentation for various complaints in 2017 who presents today complaining of exacerbation of her chronic irritable bowel syndrome. States that she is having more frequent loose stools and diffuse abdominal cramping. Cramping is described as a moderate, constant, diffuse pain. Nothing seems to improve or worsen her pain. She has not spoken to her GI doctor or primary care doctor regarding these concerns. Denies any vomiting, chest pain or shortness of breath. She is not having any fever. TRAVEL OUTSIDE OF THE [place] IN LAST 30 DAYS: No - Related Data Allergies/Adverse Reactions: Penicillins Allergy (Severe, Verified 12/12/16 16:54) Anaphylaxis Sulfa (Sulfonamide Antibiotics) Allergy (Intermediate, Verified 12/12/16 16:54) iching, nausea ciprofloxacin [From Cipro] Allergy (Mild, Verified 12/12/16 16:54) itching, nausea meperidine HCl [From Demerol] Allergy (Mild, Verified 12/12/16 16:54) heart palpitations Past Medical History - General Information source: Patient - Social History Smoking Status: Never Smoker Frequency of alcohol use: None Drug Abuse: None Lives with: Alone Family History: Reviewed & Not Pertinent, Arthritis, CAD, CVA, DM, Hyperlipidemia, Hypertension, Malignancy, Thyroid Disfunction Patient has suicidal ideation: No Patient has homicidal ideation: No - Past Medical History Cardiac Medical History: Reports: Hx Hypertension Pulmonary Medical History: Reports: Hx Asthma Neurological Medical History: Denies: Hx Cerebrovascular Accident Renal/ Medical History: Denies: Hx Peritoneal Dialysis GI Medical History: Reports: Hx Gastroesophageal Reflux Disease, Hx Irritable Bowel, Hx Ulcer Musculoskeltal Medical History: Reports Hx Arthritis - rheumatoid, DDD, Reports Hx Musculoskeletal Deformity, Reports Hx Musculoskeletal Trauma Psychiatric Medical History: Reports: Hx Anxiety, Hx Depression Past Surgical History: Reports: Hx Abdominal Surgery - small intestine removal, Hx Appendectomy, Hx Bowel Surgery - small intestine, Hx Breast Surgery - biopsy , Hx Hysterectomy, Hx Neurologic Surgery - brain tumor removed, Hx Tonsillectomy. Denies: Hx Open Heart Surgery - Immunizations Immunizations up to date: Yes Hx Diphtheria, Pertussis, Tetanus Vaccination: Yes - 09/2010 Hx Pneumococcal Vaccination: 08/24/10 Review of Systems - Review of Systems Notes: Constitutional: Negative for fever. HENT: Negative for sore throat. Eyes: Negative for visual changes. Cardiovascular: Negative for chest pain. Respiratory: Negative for shortness of breath. Gastrointestinal: Positive for abdominal pain and diarrhea Genitourinary: Negative for dysuria. Musculoskeletal: Negative for back pain. Skin: Negative for rash. Neurological: Negative for headaches, weakness or numbness. 10 point ROS negative except as marked above and in HPI. Physical Exam - Vital signs Vitals: Temp Pulse Resp BP Pulse Ox 97.7 F 77 16 147/64 H 100 12/12/16 16:54 12/12/16 16:54 12/12/16 16:54 12/12/16 16:54 12/12/16 16:54 Interpretation: Hypertensive Notes: PHYSICAL EXAMINATION: GENERAL: Well-appearing, well-nourished and in no acute distress. HEAD: Atraumatic, normocephalic. EYES: Pupils equal round and reactive to light, extraocular movements intact, sclera anicteric, conjunctiva are normal. ENT: nares patent, oropharynx clear without exudates. Moist mucous membranes. NECK: Normal range of motion, supple without lymphadenopathy LUNGS: Breath sounds clear to auscultation bilaterally and equal. No wheezes rales or rhonchi. HEART: Regular rate and rhythm without murmurs ABDOMEN: Soft, nontender, normoactive bowel sounds. No guarding, no rebound. No masses appreciated. EXTREMITIES: Normal range of motion, no pitting or edema. No cyanosis. NEUROLOGICAL: No focal neurological deficits. Moves all extremities spontaneously and on command. PSYCH: Normal mood, normal affect. SKIN: Warm, Dry, normal turgor, no rashes or lesions noted. Course - Re-evaluation Re-evalutation: 12/12/16 18:38 Patient presents with multiple vague complaints that did not appear to be concerning for any acute life-threatening pathology. Vitals are within normal limits at triage and at time of discharge. Physical examination is unremarkable. Patient has tolerated oral intake without difficulty. She has no focal abdominal tenderness on exam and frequent presents to the emergency department requesting a rectal exam or complaining of exacerbation of her irritable bowel syndrome. Patient was not noted to be in distress at any point during their ER visit. At this time, based on the reassuring evaluation, I do not suspect an acute DC, pulmonary embolus, aortic dissection, acute intra- abdominal pathology, stroke, or sepsis.Will discharge with return precautions and follow-up recommendations. Verbal discharge instructions given a the bedside and opportunity for questions given. Medication warnings reviewed. Patient is in agreement with this plan and has verbalized understanding of return precautions and the need for primary care follow-up in the next 24-72 hours. - Vital Signs Vital signs: Temp Pulse Resp BP Pulse Ox 97.8 F 75 16 140/69 H 100 12/12/16 18:48 12/12/16 18:48 12/12/16 18:48 12/12/16 18:48 12/12/16 18:48 - Laboratory Result Diagrams: 12/12/16 17:10 12/12/16 17:10 Laboratory results interpreted by me: 12/12/16 12/12/16 17:10 17:10 RDW 14.4 H BUN 5 L Discharge - Discharge Clinical Impression: Chronic abdominal pain Irritable bowel syndrome Qualifiers: Irritable bowel syndrome type: with diarrhea Qualified Code(s): K58.0 - Irritable bowel syndrome with diarrhea Condition: Good Disposition: HOME, SELF-CARE Additional Instructions: You have been seen in the Emergency Department (ED) for abdominal pain. Your evaluation did not identify a clear cause of your symptoms but was generally reassuring. Please follow up with your doctor as soon as possible regarding today's emergent visit and the symptoms that are bothering you. Return to the ED if your abdominal pain worsens or fails to improve, you develop bloody vomiting, bloody diarrhea, you are unable to tolerate fluids due to vomiting, fever greater than 101, or other symptoms that concern you. Prescriptions: Dicyclomine HCl [Bentyl 10 mg Capsule] 1 cap PO TID PRN #30 cap PRN Reason:
[2016-12-12 18:50] VITALS: BP 140/69
[2016-12-12] MEDS ORDERED: KETOROLAC TROMETHAMINE 60 MG/2 ML SDV IM ONE (18:54)
[2016-12-12] MEDS ORDERED: DICYCLOMINE HCL 10 MG CAPSULE PO ONE (18:55)
== END 2016-12-12 19:14 | disposition home or self-care (01) ==
LOC: ER 16:37
DX: K58.0 Irritable bowel syndrome with diarrhea (principal); R10.9 Unspecified abdominal pain; G89.29 Other chronic pain
CPT/HCPCS: 99284; 96372; 36415; 83690; 85025; 80053; A9270; J1885; J3490

== ENCOUNTER → 2016-12-15 | Outpatient (CLI) | payer MEDICARE, MEDICAID ==
[2016-12-15 15:32] LABS: ABSOLUTE BASOPHILS # (AUTO) 0.1 10^3/uL (0.0-0.2); ABSOLUTE EOSINOPHILS # (AUTO) 0.5 10^3/uL (0.0-0.6); ABSOLUTE LYMPHOCYTES (AUTO) 1.9 10^3/uL (0.5-4.7); ABSOLUTE MONOCYTES (AUTO) 0.7 10^3/uL (0.1-1.4); ABSOLUTE NEUT (AUTO) 6.3 10^3/uL (1.7-8.2); BASOPHILS % (AUTO) 0.7 % (0-2); EOSINOPHILS % (AUTO) 5.7 % (0-6); HEMATOCRIT 34.8 % (36.0-47.0); HEMOGLOBIN 11.9 g/dL (12.0-15.5); HGB HCT DIFFERENCE 0.9; LYMPHOCYTES % (AUTO) 19.6 % (13-45); MEAN CORPUSCULAR HEMOGLOBIN 31.3 pg (27.0-33.4); MEAN CORPUSCULAR HGB CONC 34.1 g/dL (32.0-36.0); MEAN CORPUSCULAR VOLUME 92 fl (80-97); MONOCYTES % (AUTO) 7.2 % (3-13); RED BLOOD COUNT 3.79 10^6/uL (3.72-5.28); RED CELL DISTRIBUTION WIDTH 14.7 % (11.5-14.0); SEGMENTED NEUTROPHILS % (AUTO) 66.8 % (42-78); WHITE BLOOD COUNT 9.5 10^3/uL (4.0-10.5)
== END ==
LOC: OD 14:27
PROVIDERS: ATTEND Specialist
DX: R10.9 Unspecified abdominal pain (principal); R19.01 Right upper quadrant abdominal swelling, mass and lump; D50.9 Iron deficiency anemia, unspecified
CPT/HCPCS: 36415; 85025

== ENCOUNTER → 2016-12-17 | Outpatient (CLI) | payer MEDICARE, MEDICAID | LOC: RAD 09:05 | PROVIDERS: ATTEND Specialist | DX: R19.01 Right upper quadrant abdominal swelling, mass and lump (principal) | CPT/HCPCS: 74176 ==

== ENCOUNTER 2016-12-21 09:52 | Day surgery (SDC) | payer MEDICARE, MEDICAID ==
[~2016-12-21 09:52] MED LIST: EPINEPHRINE INJ 1 MG/10 ML DISP.SYRIN ONE; FENTANYL CITRATE INJ/PF 100 MCG/2 ML AMPUL ONE; FLUMAZENIL INJ 0.5 MG/5 ML VIAL IV ONE; GLUCAGON,HUMAN RECOMB 1 MG INJ ONE; GLYCOPYRROLATE INJ 0.4 MG/2 ML VIAL ONE; LIDOCAINE 2% JELLY 30 ML TUBE ONE; NALOXONE HCL INJ/PF 0.4 MG/1 ML SDV ONE; ONDANSETRON HCL INJ/PF 4 MG/2 ML SDV ONE
[2016-12-21 10:13] LABS: APPEARANCE,URINE CLEAR; BILIRUBIN,URINE NEGATIVE (NEGATIVE); GLUCOSE, URINE NEGATIVE (NEGATIVE); KETONES,URINE NEGATIVE (NEGATIVE); LEUKOCYTE ESTERASE,URINE NEGATIVE (NEGATIVE); NITRITE,URINE NEGATIVE (NEGATIVE); PROTEIN,URINE NEGATIVE (NEGATIVE); URINE SPECIFIC GRAVITY 1.003; UROBILINOGEN,URINE NEGATIVE mg/dL (<2.0)
[2016-12-21 10:20] LABS: ABSOLUTE BASOPHILS # (AUTO) 0.1 10^3/uL (0.0-0.2); ABSOLUTE EOSINOPHILS # (AUTO) 0.4 10^3/uL (0.0-0.6); ABSOLUTE LYMPHOCYTES (AUTO) 1.5 10^3/uL (0.5-4.7); ABSOLUTE MONOCYTES (AUTO) 0.4 10^3/uL (0.1-1.4); ABSOLUTE NEUT (AUTO) 4.1 10^3/uL (1.7-8.2); BASOPHILS % (AUTO) 0.8 % (0-2); EOSINOPHILS % (AUTO) 6.8 % (0-6); LYMPHOCYTES % (AUTO) 22.8 % (13-45); MEAN CORPUSCULAR HGB CONC 34.2 g/dL (32.0-36.0); MEAN CORPUSCULAR VOLUME 91 fl (80-97); MONOCYTES % (AUTO) 6.7 % (3-13); RED BLOOD COUNT 3.87 10^6/uL (3.72-5.28); RED CELL DISTRIBUTION WIDTH 14.7 % (11.5-14.0); SEGMENTED NEUTROPHILS % (AUTO) 62.9 % (42-78); WHITE BLOOD COUNT 6.5 10^3/uL (4.0-10.5)
[2016-12-21] MEDS: MIDAZOLAM 2 MG/2 ML INJ ONE ×3 (10:27→10:34)
[2016-12-21] MEDS: FENTANYL CITRATE INJ/PF 100 MCG/2 ML AMPUL ONE ×2 (10:29→10:35)
[2016-12-21 10:51] LABS: ANION GAP 15 (5-19); BLOOD UREA NITROGEN 5 mg/dL (7-20); CALCIUM 9.4 mg/dL (8.4-10.2); CARBON DIOXIDE 25 mmol/L (22-30); CHLORIDE 96 mmol/L (98-107); CREATININE RESULT 0.61 mg/dL (0.52-1.25); GLUCOSE 82 mg/dL (75-110); POTASSIUM 3.4 mmol/L (3.6-5.0); SODIUM 135.7 mmol/L (137-145)
[2016-12-21 12:05] VITALS: BP 126/62
--- NOTE | 2016-12-21 16:37 | OPERATIVE REPORT E ---
Operative Report NAME: MICHAEL CAMEJO : 1950 AGE: 66Y DATE OF SURGERY: ROOM: INDICATIONS: The patient is a 66-year-old female who has history of diverticulosis and presented with recurrent rectal bleeding. Because of persistent visits to the Emergency Room with rectal bleeding and the patient's concern, she is being admitted for outpatient colonoscopy. PREOPERATIVE DIAGNOSES: 1. Multiple episodes of rectal bleeding. 2. Multiple visits to the Emergency Room. 3. History of diverticulosis. POSTOPERATIVE DIAGNOSES: 1. External hemorrhoids, mild, not actively bleeding. 2. Question 2 to 3 mm anal ulcer with no bleeding. 3. A small sessile 2-mm polyp, too small to biopsy. 4. Severe diverticulosis, sigmoid, descending colon. 5. Inadequate prep. 6. Colonoscopy completed to the cecum. SURGEON: SYMONE LOTT M.D. ANESTHESIA: Versed 6, fentanyl 125. TISSUE REMOVED OR ALTERED: None. PROCEDURE: RECTAL EXAM: 1. Shows tiny rectal ulcer, not bleeding. 2. External hemorrhoids, no bleeding. 3. A 2 mm rectal polyp, small to biopsy. 4. Sigmoid, descending colon, diverticulosis. 5. Transverse colon, diverticulosis. Ascending colon and cecum normal. Scope withdrawn. Cecum, ascending, transverse, descending, sigmoid all the way to the rectum. CONCLUSION: 1. Severe diverticulosis. 2. Rectal ulcer. 3. External hemorrhoids. PLAN: 1. Soft low-residual diet for 3 days. 2. Awaiting lab results. 3. Consideration for followup colonoscopy after 5 years. DICTATING PHYSICIAN: SYMONE LOTT M.D. [id number] [facility]#: [id number] ID: [id number] JOB#: [id number] ACCT: [id number] cc:KETAN QUINTEROS M.D., IBIKUNLE M.D. ISSA, MAHMOUD M.D. >
--- NOTE | 2016-12-22 15:42 | DISCHARGE SUMMARY E ---
Discharge Summary NAME: MICHAEL CAMEJO : 1950 AGE: 66Y ADMITTED: 12/21/2016 DISCHARGED: 12/21/2016 PROCEDURE: Colonoscopy. FINAL DIAGNOSES: 1. History of rectal bleeding. 2. External hemorrhoids. 3. Rectal ulcer, not bleeding, 2 mm. 4. History of ovarian cancer. 5. History of asthma. 6. History of rheumatoid arthritis and diverticulosis. HISTORY: The patient is 65, presented with chief complaint of rectal bleeding, underwent colonoscopy, shows no polyps, no active bleeding, external hemorrhoids, and rectal ulcer and severe diverticulosis. ALLERGIES: 1. PENICILLIN. 2. SULFA. 3. CIPRO. 4. DEMEROL. DISCHARGE PLAN: 1. Awaiting lab studies. 2. Soft, low-residue diet. 3. Followup office visit in the next few days DICTATING PHYSICIAN: SYMONE LOTT M.D. [id number] PHY#: [id number] ID: [id number] JOB#: [id number] ACCT: [id number] cc:KETAN QUINTEROS M.D., MAHMOUD M.D. >
== END 2016-12-21 12:00 | disposition home or self-care (01) ==
LOC: END 09:52
PROVIDERS: ATTEND Specialist
PROC: 0DJD8ZZ Inspection of Lower Intestinal Tract, Via Natural or Artificial Opening Endoscopic (ICD-10-PCS; principal; 2016-12-21 11:00)
DX: K57.30 Diverticulosis of large intestine without perforation or abscess without bleeding (principal); K64.4 Residual hemorrhoidal skin tags; K62.1 Rectal polyp; K62.6 Ulcer of anus and rectum; K62.5 Hemorrhage of anus and rectum; Z88.0 Allergy status to penicillin; Z88.2 Allergy status to sulfonamides; Z88.8 Allergy status to other drugs, medicaments and biological substances
CPT/HCPCS: 45378; 36415; 85025; 80048; 81001; J2250; J3010; J1610; J0171; J2310; J2405; J3490

== ENCOUNTER 2017-01-06 09:57 | Day surgery (SDC) | payer MEDICARE, MEDICAID ==
--- NOTE | 2016-12-31 12:16 | HISTORY AND PHYSICAL E ---
History and Physical NAME: MICHAEL CAMEJO : 1950 AGE: 66Y ADMITTED: 01/06/2017 ROOM: HISTORY OF PRESENT ILLNESS: Patient presented at this time regarding persistent chief complaint of GI bleeding. Recent colonoscopy shows no site or source of her bleeding. Patient is being admitted for upper endoscopy. Reviewing records shows as follows. Upper GI series was done in 2013. It shows hiatus hernia, lower esophageal ring, gastroesophageal reflux. Duodenum and stomach were normal. Her hemoglobin is 13, crit 37. Again, she did have upper scope done 03/26/2014 showing gastritis, H. pylori negative. She did have upper scope done in 2013 regarding reflux. She did have hiatus hernia. No GI bleed. Patient continued to complain of passing blood per rectum. Her colonoscopy showed diverticulosis with no sign of bleeding. Patient did have history of colonoscopies and upper endoscopies in the past. Again there is a question of hiatus hernia on CT. Colonoscopy done 2015 shows question of polyp in the rectum. Biopsy obtained. Severe diverticulosis. Because of persistence of complaining of GI bleed and hernia and reflux, patient is being admitted for upper endoscopy. MEDICATIONS: 1. Amitiza for constipation. 2. Prevacid. 3. At times, Dexilant. 4. Milk of Magnesia as needed. CONCLUSION: Blood in the stool. Hiatus hernia. Question upper GI lesion causing bleeding or anemia. PLAN: Upper endoscopy. DICTATING PHYSICIAN: SYMONE LOTT M.D. [id number] PHY#: [id number] ID: [id number] JOB#: [id number] ACCT: [id number] cc:SYMONE LOTT M.D. >
[~2017-01-06 09:57] MED LIST changes: -GLUCAGON,HUMAN RECOMB 1 MG INJ ONE; -LIDOCAINE 2% JELLY 30 ML TUBE ONE; +MIDAZOLAM 2 MG/2 ML INJ ONE
[2017-01-06] MEDS: MIDAZOLAM 2 MG/2 ML INJ ONE ×2 (11:38→11:44)
--- NOTE | 2017-01-06 12:36 | OPERATIVE REPORT E ---
Operative Report NAME: MICHAEL CAMEJO : 1950 AGE: 66Y DATE OF SURGERY: ROOM: PREOPERATIVE DIAGNOSES: A 66-year-old female with: 1. Abdominal pain. 2. Worsened gastrointestinal bleed. 3. Hiatus hernia. POSTOPERATIVE DIAGNOSES: 1. No evidence of bleeding. 2. Mild esophagitis. 3. Small hiatus hernia. 4. Mild gastritis. 5. Mild duodenitis. OPERATION: 1. Esophagoscopy. 2. Gastroscopy. 3. Duodenoscopy. SURGEON: SYMONE LOTT M.D. ANESTHESIA: Versed 4, fentanyl 100. TISSUE REMOVED OR ALTERED: None. PROCEDURE: After adequate sedation baby scope passed under guided vision without difficulty. ESOPHAGOSCOPY: Junction at 30, mild esophagitis, small 2 cm hiatus hernia. No stricture. No bleeding. No varices. GASTROSCOPY: No evidence of ulcers. No bleeding. Mild gastritis. DUODENOSCOPY: The bulb, descending duodenum, shows no ulcers, mild duodenitis. Patient tolerated the procedure well. Discharged to her home in stable condition. DICTATING PHYSICIAN: SYMONE LOTT M.D. [id number] PHY#: [id number] ID: [id number] JOB#: [id number] ACCT: [id number] cc:SYMONE LOTT M.D. >
[2017-01-06 13:01] VITALS: BP 125/64
--- NOTE | 2017-01-06 13:41 | DISCHARGE SUMMARY E ---
Discharge Summary NAME: MICHAEL CAMEJO : 1950 AGE: 66Y ADMITTED: 01/06/2017 DISCHARGED: 01/06/2017 PROCEDURE: EGD. CHIEF COMPLAINT: GI bleed; none present in the upper GI endoscopy exam today. HISTORY: Patient is a 66-year-old female; presented with abdominal pain. Persistent history of blood in the stool. She did have recent colonoscopy showing diverticulosis with no active bleeding. Today, she is here for upper endoscopy to rule out upper GI bleed. Abdominal pain. She did have diverticulosis with no bleeding on recent colonoscopy. MEDICATIONS: She is on: 1. Prevacid. 2. Dexilant. 3. Ayva-av-Xgcvdfcr. ALLERGIES: Patient allergic to: 1. SULFA. 2. PENICILLIN. 3. CIPRO. 4. LASIX. 5. DEMEROL. PROCEDURE/FINDINGS: Upper scope today shows hiatus hernia with no stricture, no ulcers, no bleeding in the upper GI tract. FINAL DIAGNOSES: 1. ABDOMINAL PAIN; ETIOLOGY UNDETERMINED. 2. HIATUS HERNIA. DISCHARGE PLAN: 1. Will obtain baseline CBC, SMA-7. 2. Continue IVs at 75 mL/hour x2 hours, then discharge the patient to be followed as an outpatient. 3. Patient to see us in the office in the next few days. DICTATING PHYSICIAN: SYMONE LOTT M.D. [id number] PHY#: [id number] ID: [id number] JOB#: [id number] ACCT: [id number] cc:SYMONE LTOT M.D. >
[2017-01-06 13:52] LABS: ABSOLUTE EOSINOPHILS # (AUTO) 0.4 10^3/uL (0.0-0.6); ABSOLUTE LYMPHOCYTES (AUTO) 1.6 10^3/uL (0.5-4.7); ABSOLUTE MONOCYTES (AUTO) 0.4 10^3/uL (0.1-1.4); ABSOLUTE NEUT (AUTO) 5.2 10^3/uL (1.7-8.2); BASOPHILS % (AUTO) 0.5 % (0-2); EOSINOPHILS % (AUTO) 5.6 % (0-6); HEMATOCRIT 33.7 % (36.0-47.0); HEMOGLOBIN 10.8 g/dL (12.0-15.5); HGB HCT DIFFERENCE -1.3; MEAN CORPUSCULAR HEMOGLOBIN 30.1 pg (27.0-33.4); MEAN CORPUSCULAR VOLUME 94 fl (80-97); MONOCYTES % (AUTO) 5.3 % (3-13); RED BLOOD COUNT 3.58 10^6/uL (3.72-5.28); SEGMENTED NEUTROPHILS % (AUTO) 67.6 % (42-78); WHITE BLOOD COUNT 7.8 10^3/uL (4.0-10.5)
[2017-01-06 14:04] LABS: ANION GAP 11 (5-19); BLOOD UREA NITROGEN 9 mg/dL (7-20); CALCIUM 9.1 mg/dL (8.4-10.2); CARBON DIOXIDE 26 mmol/L (22-30); CHLORIDE 102 mmol/L (98-107); CREATININE RESULT 0.67 mg/dL (0.52-1.25); GLUCOSE 120 mg/dL (75-110); POTASSIUM 3.9 mmol/L (3.6-5.0); SODIUM 139.1 mmol/L (137-145)
== END 2017-01-06 16:00 | disposition home or self-care (01) ==
LOC: END 09:57
PROVIDERS: ATTEND Specialist
PROC: 0DJ08ZZ Inspection of Upper Intestinal Tract, Via Natural or Artificial Opening Endoscopic (ICD-10-PCS; principal; 2017-01-06 11:00)
DX: K44.9 Diaphragmatic hernia without obstruction or gangrene (principal); K20.9 Esophagitis, unspecified; K29.70 Gastritis, unspecified, without bleeding; K29.80 Duodenitis without bleeding; K92.1 Melena; K59.00 Constipation, unspecified; Z79.899 Other long term (current) drug therapy
CPT/HCPCS: 43235; 36415; 85025; 80048; J2250; J3010; J0171; J2310; J2405; J3490

== ENCOUNTER 2017-02-09 15:01 | Emergency (ER) | payer MEDICARE, MEDICAID ==
[2017-02-09] MEDS ORDERED: KETOROLAC TROMETHAMINE 60 MG/2 ML SDV IM ONE (16:43)
--- NOTE | 2017-02-09 16:53 | ER Document Report ---
HPI - HPI Pain Level: 2 Context: 66 yo female c/o cat scratch to right 2nd toe. incident occurred at 0300 this morning Associated Symptoms: Other - pain and swelling Exacerbated by: Denies Relieved by: Denies Similar symptoms previously: No Recently seen / treated by doctor: No - CARDIOVASCULAR Cardiovascular: DENIES: Chest pain - REPRODUCTIVE Reproductive: DENIES: : - DERM Skin Color: Normal Past Medical History - General Information source: Patient - Social History Smoking Status: Never Smoker Chew tobacco use (# tins/day): No Frequency of alcohol use: None Drug Abuse: None Lives with: Family Family History: Reviewed & Not Pertinent, Arthritis, CAD, CVA, DM, Hyperlipidemia, Hypertension, Malignancy, Thyroid Disfunction Patient has suicidal ideation: No Patient has homicidal ideation: No - Past Medical History Cardiac Medical History: Reports: Hx Hypertension Denies: Hx Coronary Artery Disease, Hx Heart Attack Pulmonary Medical History: Reports: Hx Asthma, Hx Pneumonia - 2017 Denies: Hx Bronchitis, Hx COPD Neurological Medical History: Denies: Hx Cerebrovascular Accident, Hx Seizures Renal/ Medical History: Denies: Hx Peritoneal Dialysis GI Medical History: Reports: Hx Gastroesophageal Reflux Disease, Hx Irritable Bowel, Hx Ulcer Musculoskeltal Medical History: Reports Hx Arthritis - rheumatoid, DDD, Reports Hx Musculoskeletal Deformity, Reports Hx Musculoskeletal Trauma Psychiatric Medical History: Reports: Hx Anxiety, Hx Depression Past Surgical History: Reports: Hx Abdominal Surgery - small intestine removal, Hx Appendectomy, Hx Bowel Surgery - small intestine, Hx Breast Surgery - biopsy , Hx Hysterectomy, Hx Neurologic Surgery - brain tumor removed, Hx Tonsillectomy. Denies: Hx Open Heart Surgery - Immunizations Immunizations up to date: Yes Hx Diphtheria, Pertussis, Tetanus Vaccination: Yes - 09/2010 Hx Pneumococcal Vaccination: 08/24/10 Vertical Provider Document - CONSTITUTIONAL Agree With Documented VS: Yes - INFECTION CONTROL TRAVEL OUTSIDE OF THE [place] IN LAST 30 DAYS: No - HEENT HEENT: Atraumatic, PERRLA - NECK Neck: Normal Inspection, Supple - RESPIRATORY Respiratory: Breath Sounds Normal, No Respiratory Distress O2 Sat by Pulse Oximetry: 100 - MUSCULOSKELETAL/EXTREMETIES Musculoskeletal/Extremeties: Tender - right 2nd toe with abrasion to distal lateral toe. focal tenderness, no edema or erythema. SMC intact - NEURO Level of Consciousness: Awake, Alert, Appropriate Motor/Sensory: No Motor Deficit, No Sensory Deficit - DERM Integumentary: Warm, Dry Course - Re-evaluation Re-evalutation: 02/09/17 16:54 wound is clean. no s/s infection. SMC intact. will discharge home with wound care instructions and have patient follow up with primary care tomorrow for wound check - Vital Signs Vital signs: Temp Pulse Resp BP Pulse Ox 98.3 F 71 20 145/75 H 100 02/09/17 15:13 02/09/17 15:13 02/09/17 15:13 02/09/17 15:13 02/09/17 15:13 Discharge - Discharge Clinical Impression: Cat scratch Condition: Stable Disposition: HOME, SELF-CARE Instructions: Soap Cleansing ([facility]), Antibiotic Ointment Protection ([facility]) Additional Instructions: clean wound with antibacterial soap and water, cover with topical antibiotic and band-aid motrin for discomfort elevate foot when possible follow up with your primary care tomorrow for a wound check Prescriptions: Mupirocin [Bactroban 2% Ointment 22 gm] 1 applic TP TID #1 tube
[2017-02-09 17:23] VITALS: BP 123/68
== END 2017-02-09 17:22 | disposition home or self-care (01) ==
LOC: ER 15:01
DX: S90.414A Abrasion, right lesser toe(s), initial encounter (principal); M79.674 Pain in right toe(s); M79.89 Other specified soft tissue disorders; W55.03XA Scratched by cat, initial encounter
CPT/HCPCS: 99283; J1885

== ENCOUNTER 2017-02-15 20:01 | Emergency (ER) | payer MEDICARE, MEDICAID ==
[2017-02-15] MEDS ORDERED: NORMAL SALINE 1000 ML 1,000 ML IV ONE (20:27)
--- NOTE | 2017-02-15 20:33 | ER Document Report ---
ED General - General Chief Complaint: General Weakness Stated Complaint: POSSIBLE DEHYDRATION Time Seen by Provider: 02/15/17 20:14 Mode of Arrival: Medic Information source: Patient Notes: Patient presents to the emergency department via EMS for reports of being dehydrated. She reports she is tingling all over and needs IV fluids. Patient reports she has been drinking fluids all day but her throat is dry and the fluid is not reaching her colon. Patient is a frequent visitor to the emergency department. She denies fever vomiting diarrhea. Reports last bowel movement was this morning without problems. She reports she contacted Dr. Cortez and he told her to come here for IV fluids. TRAVEL OUTSIDE OF THE [place] IN LAST 30 DAYS: No - HPI Onset: This evening Onset/Duration: Persistent Severity: None Associated symptoms: None Exacerbated by: Denies Relieved by: Denies Similar symptoms previously: Yes Recently seen / treated by doctor: Yes - Related Data Allergies/Adverse Reactions: Penicillins Allergy (Severe, Verified 02/09/17 15:13) Anaphylaxis Sulfa (Sulfonamide Antibiotics) Allergy (Intermediate, Verified 02/09/17 15:13) iching, nausea ciprofloxacin [From Cipro] Allergy (Mild, Verified 02/09/17 15:13) itching, nausea meperidine HCl [From Demerol] Allergy (Mild, Verified 02/09/17 15:13) heart palpitations Past Medical History - General Information source: Patient - Social History Smoking Status: Never Smoker Chew tobacco use (# tins/day): No Frequency of alcohol use: None Drug Abuse: None Lives with: Alone Family History: Reviewed & Not Pertinent, Arthritis, CAD, CVA, DM, Hyperlipidemia, Hypertension, Malignancy, Thyroid Disfunction Patient has suicidal ideation: No Patient has homicidal ideation: No - Past Medical History Cardiac Medical History: Reports: Hx Hypertension Denies: Hx Coronary Artery Disease, Hx Heart Attack Pulmonary Medical History: Reports: Hx Asthma, Hx Pneumonia - 2017 Denies: Hx Bronchitis, Hx COPD Neurological Medical History: Denies: Hx Cerebrovascular Accident, Hx Seizures Renal/ Medical History: Denies: Hx Peritoneal Dialysis GI Medical History: Reports: Hx Gastroesophageal Reflux Disease, Hx Irritable Bowel, Hx Ulcer Musculoskeltal Medical History: Reports Hx Arthritis - rheumatoid, DDD, Reports Hx Musculoskeletal Deformity, Reports Hx Musculoskeletal Trauma Psychiatric Medical History: Reports: Hx Anxiety, Hx Depression Past Surgical History: Reports: Hx Abdominal Surgery - small intestine removal, Hx Appendectomy, Hx Bowel Surgery - small intestine, Hx Breast Surgery - biopsy , Hx Hysterectomy, Hx Neurologic Surgery - brain tumor removed, Hx Tonsillectomy. Denies: Hx Open Heart Surgery - Immunizations Immunizations up to date: Yes Hx Diphtheria, Pertussis, Tetanus Vaccination: Yes - 09/2010 Hx Pneumococcal Vaccination: 08/24/10 Review of Systems - Review of Systems Notes: Review HPI for review of systems., All other systems negative Physical Exam - Vital signs Vitals: Temp Pulse Resp BP Pulse Ox 98.3 F 83 18 161/43 H 100 02/15/17 20:06 02/15/17 20:06 02/15/17 20:06 02/15/17 20:06 02/15/17 20:06 - Notes Notes: PHYSICAL EXAMINATION: GENERAL: Well-appearing and in no acute distress nontoxic looking HEAD: Atraumatic, normocephalic. EYES: Pupils equal round and reactive to light, extraocular movements intact, sclera anicteric, conjunctiva are normal. ENT: nares patent, oropharynx clear without exudates. Moist mucous membranes. NECK: Normal range of motion, supple without lymphadenopathy LUNGS: CTAB and equal. No wheezes rales or rhonchi. HEART: Regular rate and rhythm without murmurs ABDOMEN: Soft, no tenderness. No guarding, no rebound EXTREMITIES: Normal range of motion, no pitting edema. No cyanosis. NEUROLOGICAL: Cranial nerves grossly intact. Normal sensory/motor exams. PSYCH: Normal mood, normal affect. SKIN: Warm, Dry, normal turgor, no rashes or lesions noted Course - Re-evaluation Re-evalutation: 02/15/17 Pt did protest upon discharge, insisting she needed more fluids. I attempted to educate her on p.o. fluids. Patient really did not listen. She was instructed to follow-up with Dr. Cortez tomorrow. - Vital Signs Vital signs: Temp Pulse Resp BP Pulse Ox 98.3 F 87 18 140/58 H 99 02/15/17 20:06 02/15/17 21:30 02/15/17 21:30 02/15/17 21:30 02/15/17 21:30 Discharge - Discharge Clinical Impression: iv fluids Condition: Stable Disposition: HOME, SELF-CARE Instructions: Intravenous (IV) Fluids ([facility]) Additional Instructions: *You have been treated with IV Fluids *Push fluids *Follow up with Dr Caldwell tomorrow *Return to ED for worsening condition, changes, needs Referrals: ARACELI CORTEZ MD [Primary Care Provider] - Follow up tomorrow
[2017-02-15 21:31] VITALS: BP 140/58
== END 2017-02-15 21:30 | disposition home or self-care (01) ==
LOC: ER 20:01
DX: E86.0 Dehydration (principal); R53.1 Weakness; I10 Essential (primary) hypertension; J45.909 Unspecified asthma, uncomplicated; K21.9 Gastro-esophageal reflux disease without esophagitis; Z88.0 Allergy status to penicillin; Z88.2 Allergy status to sulfonamides; Z88.3 Allergy status to other anti-infective agents; Z90.710 Acquired absence of both cervix and uterus
CPT/HCPCS: 99284; J7030

== ENCOUNTER 2017-02-16 11:03 | Observation (INO) | payer MEDICARE, MEDICAID ==
[2017-02-16 13:29] LABS: HEMATOCRIT 34.6 % (36.0-47.0); HEMOGLOBIN 11.3 g/dL (12.0-15.5); HGB HCT DIFFERENCE -0.7; MEAN CORPUSCULAR HEMOGLOBIN 29.1 pg (27.0-33.4); MEAN CORPUSCULAR HGB CONC 32.8 g/dL (32.0-36.0); MEAN CORPUSCULAR VOLUME 89 fl (80-97); RED BLOOD COUNT 3.89 10^6/uL (3.72-5.28); WHITE BLOOD COUNT 6.6 10^3/uL (4.0-10.5)
[2017-02-16] MEDS: NORMAL SALINE 1000 ML 1,000 ML IV PRN ×2 (13:31→13:54)
[2017-02-16 13:36] LABS: PROTHROMBIN TIME 13.3 SEC (11.4-15.4)
[2017-02-16 13:53] LABS: ALANINE AMINOTRANSFERASE 19 U/L (9-52); ALBUMIN 3.7 g/dL (3.5-5.0); ALKALINE PHOSPHATASE 88 U/L (38-126); ANION GAP 13 (5-19); ASPARTATE AMINO TRANSFERASE 16 U/L (14-36); BILIRUBIN,DIRECT 0.2 mg/dL (0.0-0.4); BILIRUBIN,TOTAL 0.5 mg/dL (0.2-1.3); BLOOD UREA NITROGEN 5 mg/dL (7-20); CARBON DIOXIDE 23 mmol/L (22-30); CHLORIDE 107 mmol/L (98-107); CREATININE RESULT 0.76 mg/dL (0.52-1.25); GLUCOSE 79 mg/dL (75-110); POTASSIUM 3.8 mmol/L (3.6-5.0); SODIUM 142.5 mmol/L (137-145); TOTAL PROTEIN 6.9 g/dL (6.3-8.2)
[2017-02-16] MEDS ORDERED: ENOXAPARIN SODIUM INJ 40 MG/0.4 ML DISP.SYRIN SUBCUT ONE (15:00)
[2017-02-16 15:24] LABS: APPEARANCE,URINE CLEAR; BILIRUBIN,URINE NEGATIVE (NEGATIVE); GLUCOSE, URINE NEGATIVE (NEGATIVE); KETONES,URINE NEGATIVE (NEGATIVE); LEUKOCYTE ESTERASE,URINE TRACE (NEGATIVE); NITRITE,URINE NEGATIVE (NEGATIVE); PROTEIN,URINE NEGATIVE (NEGATIVE); URINE SPECIFIC GRAVITY 1.003; UROBILINOGEN,URINE NEGATIVE mg/dL (<2.0)
[2017-02-16] MEDS ORDERED: CYANOCOBALAMIN (VITAMIN B-12) INJ 1000 MCG/1 ML VIAL IM SCH (18:45)
[2017-02-16] MEDS: MECLIZINE HCL 25 MG TABLET PO SCH (22:14)
[2017-02-16] MEDS: ALPRAZOLAM 0.5 MG TABLET PO SCH (22:14)
[2017-02-16] MEDS: SUCRALFATE SUSP 1 GM/10 ML UDCUP PO SCH (22:14)
[2017-02-16] MEDS: ACETAMINOPHEN WITH CODEINE #3 TABLET PO SCH (22:48)
[2017-02-17] MEDS: MECLIZINE HCL 25 MG TABLET PO SCH ×2 (05:24→15:01)
[2017-02-17] MEDS ORDERED: ACETAMINOPHEN 325 MG TABLET PO PRN (05:47)
[2017-02-17] MEDS ORDERED: LANSOPRAZOLE 30 MG TAB.RAP.DR PO SCH ×2 (10:00)
[2017-02-17] MEDS ORDERED: ENOXAPARIN SODIUM INJ 40 MG/0.4 ML DISP.SYRIN SUBCUT SCH ×2 (10:00)
[2017-02-17] MEDS: ACETAMINOPHEN WITH CODEINE #3 TABLET PO SCH (10:23)
[2017-02-17] MEDS: ALPRAZOLAM 0.5 MG TABLET PO SCH (10:23)
[2017-02-17] MEDS: MAGNESIUM HYDROXIDE SUSP 30 ML UDCUP PO PRN ×2 (10:23→17:31)
[2017-02-17] MEDS: SUCRALFATE SUSP 1 GM/10 ML UDCUP PO SCH (10:24)
--- NOTE | 2017-02-17 17:22 | PDOC H&P ---
History of Present Illness Admission Date/PCP: 02/16/17 12:15 ARACELI CORTEZ MD History of Present Illness: MICHAEL CAMEJO is a 66 year old female, she was admitted because she felt she was dehydrated and she needed to be admitted for IV fluid therapy. She was emergency room yesterday, she was advised to see me in the office. She was examined and evaluated in the office, she has dry oral mucosa. Past Medical History Pulmonary Medical History: Reports: Asthma, Pneumonia - 2017 Musculoskeltal Medical History: Reports: Arthritis - rheumatoid, DDD Psychiatric Medical History: Reports: Depression Past Surgical History Past Surgical History: Reports: Appendectomy, Hysterectomy, Tonsillectomy Social History Smoking Status: Never Smoker Frequency of Alcohol Use: None Hx Recreational Drug Use: No Drugs: None Hx Prescription Drug Abuse: No - Advance Directive Resuscitation Status: Full Code Family History Family History: Reviewed & Not Pertinent, Arthritis, CAD, CVA, DM, Hyperlipidemia, Hypertension, Malignancy, Thyroid Disfunction Parental Family History Reviewed: Yes Children Family History Reviewed: Yes Sibling(s) Family History Reviewed.: Yes Medication/Allergy Home Medications: Alprazolam [Xanax 0.5 mg Tablet] 0.5 mg PO Q12 02/16/17 Cyanocobalamin (Vitamin B-12) [Vitamin B-12 Inj 1000 Mcg/1 ml Vial] 1,000 mcg IM [id number] 02/16/17 Dexlansoprazole [Dexilant 60 mg Capsule] 60 mg PO DAILY 02/16/17 Meclizine HCl [Antivert 25 mg Tablet] 25 mg PO Q8 02/16/17 Sucralfate [Carafate Susp 1 gm/10 ml Udcup] 10 ml PO BID 02/16/17 Allergies/Adverse Reactions: Penicillins Allergy (Severe, Verified 02/09/17 15:13) Anaphylaxis Sulfa (Sulfonamide Antibiotics) Allergy (Intermediate, Verified 02/09/17 15:13) iching, nausea ciprofloxacin [From Cipro] Allergy (Mild, Verified 02/09/17 15:13) itching, nausea meperidine HCl [From Demerol] Allergy (Mild, Verified 02/09/17 15:13) heart palpitations Review of Systems Constitutional: PRESENT: fatigue, weakness. ABSENT: chills, fever(s), headache( s), weight gain, weight loss Eyes: ABSENT: visual disturbances Ears: ABSENT: hearing changes Cardiovascular: ABSENT: chest pain, dyspnea on exertion, edema, orthropnea, palpitations Respiratory: ABSENT: cough, hemoptysis Gastrointestinal: ABSENT: abdominal pain, constipation, diarrhea, hematemesis, hematochezia, nausea, vomiting Genitourinary: ABSENT: dysuria, hematuria Musculoskeletal: ABSENT: joint swelling Integumentary: ABSENT: rash, wounds Neurological: ABSENT: abnormal gait, abnormal speech, confusion, dizziness, focal weakness, syncope Psychiatric: ABSENT: anxiety, depression, homidical ideation, suicidal ideation Endocrine: ABSENT: cold intolerance, heat intolerance, menstrual abnormalities, polydipsia, polyuria Hematologic/Lymphatic: ABSENT: easy bleeding, easy bruising, lymphadenopathy Physical Exam Vital Signs: Temp Pulse Resp BP Pulse Ox 98.4 F 66 12 120/54 L 100 02/17/17 11:42 02/17/17 11:42 02/17/17 11:42 02/17/17 11:42 02/17/17 11:42 Intake & Output 02/16/17 02/17/17 02/18/17 06:59 06:59 06:59 Intake Total 310 Output Total 1650 Balance -1340 Weight 64.467 kg General appearance: PRESENT: no acute distress, well-developed, well-nourished Head exam: PRESENT: atraumatic, normocephalic Eye exam: PRESENT: conjunctiva pink, EOMI, PERRLA Ear exam: PRESENT: normal external ear exam Mouth exam: PRESENT: dry mucosa Neck exam: PRESENT: full ROM Cardiovascular exam: PRESENT: RRR, +S1, +S2 Pulses: PRESENT: normal dorsalis pedis pul, +2 pedal pulses bilateral Vascular exam: PRESENT: normal capillary refill GI/Abdominal exam: PRESENT: normal bowel sounds, soft Rectal exam: PRESENT: deferred Neurological exam: PRESENT: alert, awake, oriented to person, oriented to place , oriented to time, oriented to situation, CN II-XII grossly intact Skin exam: PRESENT: dry, intact, warm Results Laboratory Results: 02/16/17 13:03 02/16/17 13:03 Assessment & Plan - Diagnosis (1) Dehydration Is this a current diagnosis for this admission?: YesPlan: Patient was admitted for observation, she said she needed to be treated with IV fluid because he was dehydrated
--- NOTE | 2017-02-17 17:23 | PDOC DISCHARGE SUMMARY ---
General - Admit/Disc Date/PCP Admission Date/Primary Care Provider: 02/16/17 12:15 ARACELI CORTEZ MD Discharge Date: 02/17/17 - Discharge Diagnosis (1) Dehydration Is this a current diagnosis for this admission?: Yes - Additional Information Resuscitation Status: Full Code Home Medications: Alprazolam [Xanax 0.5 mg Tablet] 0.5 mg PO Q12 02/16/17 Cyanocobalamin (Vitamin B-12) [Vitamin B-12 Inj 1000 Mcg/1 ml Vial] 1,000 mcg IM [id number] 02/16/17 Dexlansoprazole [Dexilant 60 mg Capsule] 60 mg PO DAILY 02/16/17 Meclizine HCl [Antivert 25 mg Tablet] 25 mg PO Q8 02/16/17 Sucralfate [Carafate Susp 1 gm/10 ml Udcup] 10 ml PO BID 02/16/17 History of Present Illness History of Present Illness: MICHAEL CAMEJO is a 66 year old female, she was admitted because she felt she was dehydrated and she needed to be admitted for IV fluid therapy. She was emergency room yesterday, she was advised to see me in the office. She was examined and evaluated in the office, she has dry oral mucosa. Hospital Course Hospital Course: She is admitted for observation, treated with IV fluid for dehydration Physical Exam Vital Signs: Temp Pulse Resp BP Pulse Ox 98.4 F 66 12 120/54 L 100 02/17/17 11:42 02/17/17 11:42 02/17/17 11:42 02/17/17 11:42 02/17/17 11:42 Intake & Output 02/16/17 02/17/17 02/18/17 06:59 06:59 06:59 Intake Total 310 Output Total 1650 Balance -1340 Weight 64.467 kg General appearance: PRESENT: no acute distress, well-developed, well-nourished Head exam: PRESENT: atraumatic, normocephalic Eye exam: PRESENT: conjunctiva pink, EOMI, PERRLA. ABSENT: scleral icterus Ear exam: PRESENT: normal external ear exam Mouth exam: PRESENT: moist, tongue midline Neck exam: PRESENT: full ROM Respiratory exam: PRESENT: clear to auscultation franky Cardiovascular exam: PRESENT: RRR, +S1, +S2 Vascular exam: PRESENT: normal capillary refill GI/Abdominal exam: PRESENT: normal bowel sounds, soft Rectal exam: PRESENT: deferred Neurological exam: PRESENT: alert Results Laboratory Results: 02/16/17 13:03 02/16/17 13:03
[2017-02-17 19:15] VITALS: BP 124/47
[2017-02-18] MEDS ORDERED: VANCOMYCIN HCL 1,000 MG in DEXTROSE 5%-WATER 250 ML IV SCH (05:00)
== END 2017-02-17 20:15 | disposition home or self-care (01) ==
LOC: UNDOADMOB 11:03 → 4S 11:03
PROVIDERS: ADMIT Internal Medicine; ATTEND Internal Medicine
DX: E86.0 Dehydration (principal); M06.9 Rheumatoid arthritis, unspecified; Z90.49 Acquired absence of other specified parts of digestive tract; Z79.899 Other long term (current) drug therapy
CPT/HCPCS: 36415; 85027; 85610; 85730; 80076; 80048; 81001; G0378 ×2; G0379; A9270 ×8; J3490; J1650; J7030

== ENCOUNTER 2017-02-19 14:03 | Emergency (ER) | payer MEDICARE, MEDICAID ==
[2017-02-19] MEDS ORDERED: IBUPROFEN 600 MG TABLET PO ONE (14:16)
--- NOTE | 2017-02-19 14:19 | ER Document Report ---
ED General - General Chief Complaint: Arm Pain Stated Complaint: RIGHT ARM PAIN Time Seen by Provider: 02/19/17 14:10 Mode of Arrival: Ambulatory Information source: Patient Notes: 56-year-old female presents with complaints of right forearm pain after an IV was removed yesterday. Patient denies any other injuries states that the nurse that removed it was pulling on it yanking on it and then pushing it back in. Patient denies any other complaints notes burning sensation going up the arm TRAVEL OUTSIDE OF THE [place] IN LAST 30 DAYS: No - HPI Onset: Yesterday Onset/Duration: Sudden Quality of pain: Burning Severity: Mild Pain Level: 1 Associated symptoms: Other Exacerbated by: Denies Relieved by: Denies Similar symptoms previously: No Recently seen / treated by doctor: Yes - Related Data Allergies/Adverse Reactions: Penicillins Allergy (Severe, Verified 02/19/17 14:10) Anaphylaxis Sulfa (Sulfonamide Antibiotics) Allergy (Intermediate, Verified 02/19/17 14:10) iching, nausea ciprofloxacin [From Cipro] Allergy (Mild, Verified 02/19/17 14:10) itching, nausea meperidine HCl [From Demerol] Allergy (Mild, Verified 02/19/17 14:10) heart palpitations Past Medical History - Social History Smoking Status: Never Smoker Cigarette use (# per day): No Chew tobacco use (# tins/day): No Smoking Education Provided: No Family History: Reviewed & Not Pertinent, Arthritis, CAD, CVA, DM, Hyperlipidemia, Hypertension, Malignancy, Thyroid Disfunction Patient has suicidal ideation: No Patient has homicidal ideation: No - Past Medical History Cardiac Medical History: Reports: Hx Hypertension Denies: Hx Congestive Heart Failure, Hx Heart Attack Pulmonary Medical History: Reports: Hx Asthma, Hx Pneumonia - 2017 Denies: Hx Bronchitis, Hx COPD, Hx Tuberculosis Neurological Medical History: Denies: Hx Cerebrovascular Accident, Hx Seizures Renal/ Medical History: Denies: Hx Peritoneal Dialysis GI Medical History: Reports: Hx Gastroesophageal Reflux Disease, Hx Irritable Bowel, Hx Ulcer Musculoskeltal Medical History: Reports Hx Arthritis - rheumatoid, DDD, Reports Hx Musculoskeletal Deformity, Reports Hx Musculoskeletal Trauma Psychiatric Medical History: Reports: Hx Anxiety, Hx Depression Past Surgical History: Reports: Hx Abdominal Surgery - small intestine removal, Hx Appendectomy, Hx Bowel Surgery - small intestine, Hx Breast Surgery - biopsy , Hx Hysterectomy, Hx Neurologic Surgery - brain tumor removed, Hx Tonsillectomy. Denies: Hx Open Heart Surgery - Immunizations Immunizations up to date: Yes Hx Diphtheria, Pertussis, Tetanus Vaccination: Yes - 09/2010 Hx Pneumococcal Vaccination: 08/24/10 Review of Systems - Review of Systems Notes: REVIEW OF SYSTEMS: CONSTITUTIONAL : Denies fever, chills, or sweats. Denies recent illness. EENT: Denies eye, ear, throat, or mouth pain or symptoms. Denies nasal or sinus congestion or discharge. Denies throat, tongue, or mouth swelling or difficulty swallowing. CARDIOVASCULAR: Denies chest pain. Denies palpitations or racing or irregular heart beat. Denies ankle edema. RESPIRATORY: Denies cough, cold, or chest congestion. Denies shortness of breath, difficulty breathing, or wheezing. GASTROINTESTINAL: Denies abdominal pain or distention. Denies nausea, vomiting , or diarrhea. Denies blood in vomitus, stools, or per rectum. Denies black, tarry stools. Denies constipation. GENITOURINARY: Denies difficulty urinating, painful urination, burning, frequency, blood in urine, or discharge. FEMALE GENITOURINARY: Denies vaginal bleeding, heavy or abnormal periods, irregular periods. Denies vaginal discharge or odor. MUSCULOSKELETAL: Admits to right forearm pain SKIN: Admits to rash HEMATOLOGIC : Denies easy bruising or bleeding. LYMPHATIC: Denies swollen, enlarged glands. NEUROLOGICAL: Denies confusion or altered mental status. Denies passing out or loss of consciousness. Denies dizziness or lightheadedness. Denies headache. Denies weakness or paralysis or loss of use of either side. Denies problems with gait or speech. Denies sensory loss, numbness, or tingling. Denies seizures. PSYCHIATRIC: Denies anxiety or stress. Denies depression, suicidal ideation, or homicidal ideation. ALL OTHER SYSTEMS REVIEWED AND NEGATIVE. PHYSICAL EXAMINATION: GENERAL: Well-appearing, well-nourished and in no acute distress. HEAD: Atraumatic, normocephalic. EYES: Pupils equal round and reactive to light, extraocular movements intact, conjunctiva are normal. ENT: Nares patent, oropharynx clear without exudates. Moist mucous membranes. NECK: Normal range of motion, supple without lymphadenopathy LUNGS: Breath sounds clear to auscultation bilaterally and equal. No wheezes rales or rhonchi. HEART: Regular rate and rhythm without murmurs ABDOMEN: Soft, nontender, nondistended abdomen. No guarding, no rebound. No masses appreciated. Female : deferred Musculoskeletal: Normal range of motion, no pitting or edema. No cyanosis. NEUROLOGICAL: Cranial nerves grossly intact. Normal speech, normal gait. Normal sensory, motor exams PSYCH: Normal mood, normal affect. SKIN: Ecchymosis of the right forearm noted no secondary signs of infection pulses intact there is no erythema or streaking noted Dictation was performed using [employer] voice recognition software Physical Exam - Vital signs Vitals: Temp Pulse Resp BP Pulse Ox 98.4 F 94 18 175/79 H 99 02/19/17 14:02/19/17 14:02/19/17 14:02/19/17 14:02/19/17 14:08 Course - Re-evaluation Re-evalutation: 02/19/17 14:17 Has ecchymosis secondary from the IV removal otherwise the patient is in no distress has no life-threatening issues After performing a Medical Screening Examination, I estimate there is LOW risk for OPEN FRACTURE, COMPARTMENT SYNDROME, TENDON RUPTURE, ACUTE NEUROVASCULAR INJURY, or RETAINED FOREIGN BODY, thus I consider the discharge disposition reasonable. Also, there is no evidence or peritonitis, sepsis, or toxicity. I have reevaluated this patient multiple times and no significant life threatening changes are noted. The patient and I have discussed the diagnosis and risks, and we agree with discharging home with close follow-up with the understanding that symptoms and presentations can change. We also discussed returning to the Emergency Department immediately if new or worsening symptoms occur. We have discussed the symptoms which are most concerning (e.g., changing or worsening pain, fever, numbness, weakness, cool or painful digits) that necessitate immediate return. - Vital Signs Vital signs: Temp Pulse Resp BP Pulse Ox 98.4 F 94 18 175/79 H 99 02/19/17 14:02/19/17 14:02/19/17 14:02/19/17 14:02/19/17 14:08 Discharge - Discharge Clinical Impression: Bruise of muscle Condition: Stable Disposition: HOME, SELF-CARE Instructions: Myalagia (Muscle Pain) (OM) Additional Instructions: Follow up with your physician tomorrow for further care or return to the ED IMMEDIATELY if symptoms worsen or new concerns occur. If you cannot afford to follow up with your primary care physician a list of low cost clinics have been provided at the end of your discharge papers as well.
[2017-02-19 14:57] VITALS: BP 162/76
== END 2017-02-19 14:57 | disposition home or self-care (01) ==
LOC: ER 14:03
DX: S50.11XA Contusion of right forearm, initial encounter (principal); M79.601 Pain in right arm; Y84.8 Other medical procedures as the cause of abnormal reaction of the patient, or of later complication, without mention of misadventure at the time of the procedure; I10 Essential (primary) hypertension; Z88.0 Allergy status to penicillin; Z88.2 Allergy status to sulfonamides; Z88.3 Allergy status to other anti-infective agents; Z90.710 Acquired absence of both cervix and uterus
CPT/HCPCS: 99283; A9270

== ENCOUNTER 2017-02-26 15:43 | Emergency (ER) | payer MEDICARE, MEDICAID ==
[2017-02-26] MEDS ORDERED: KETOROLAC TROMETHAMINE INJ/PF 30 MG/1 ML SDV IM ONE (18:00)
[2017-02-26] MEDS ORDERED: METHYLPREDNISOLONE INJ 125 MG/2 ML SDV IM ONE (18:00)
--- NOTE | 2017-02-26 19:37 | ER Document Report ---
HPI - HPI Pain Level: 2 Notes: Patient was a history of disc degenerative disease in her neck, RA, sciatica, irritable bowel syndrome, Crohn's comes to the ED requesting 60 mg of Toradol for her soreness. Pt states that she was seen by Dr. Lin (ortho) yesterday and received two steroid injections into her troch bursa b/l. Pt states that she would like the toradol as she cannot take any otc meds as they do not work for her at all. Pt also states that she has another appointment with Dr. Lin /his office tomorrow for imaging the "entire spine" and continued management of her chronic pain. Pt denies any acute changes in her pain. Pt states that she can feel crunching when she moves her spine. No loss of control of bowel/ bladder. No acute radiculitis symptoms to her UE's b/l. She is still eating and drinking with no problems. Denies any headache, fever, URI, sore throat, cp , syncope, palp, singh, cough, wheeze, sob, abd pain, dysuria, hematuria, muscle weakness/paralysis, urinary retention, or rash. Pt's PCM is Dr. Batres. No other concerns or complaints. Pt just wants "toradol for inflammation." Denies renal disease or diabetes. Denies misc/IV drug use. - ROS Notes: REVIEW OF SYSTEMS: CONSTITUTIONAL : Denies fever, chills, or sweats. Denies recent illness. EENT: Denies eye, ear, throat, or mouth pain or symptoms. Denies nasal or sinus congestion or discharge. Denies throat, tongue, or mouth swelling or difficulty swallowing. CARDIOVASCULAR: Denies chest pain. Denies palpitations or racing or irregular heart beat. Denies ankle edema. RESPIRATORY: Denies cough, cold, or chest congestion. Denies shortness of breath, difficulty breathing, or wheezing. GASTROINTESTINAL: Denies abdominal pain or distention. Denies nausea, vomiting , or diarrhea. Denies blood in vomitus, stools, or per rectum. Denies black, tarry stools. Denies constipation. GENITOURINARY: Denies difficulty urinating, painful urination, burning, frequency, blood in urine, or discharge. MUSCULOSKELETAL: see hpi SKIN: Denies rash, lesions or sores. NEUROLOGICAL: Denies confusion or altered mental status. Denies passing out or loss of consciousness. Denies dizziness or lightheadedness. Denies headache. Denies weakness or paralysis or loss of use of either side. Denies problems with gait or speech. Denies sensory loss, numbness, or tingling. Denies seizures. PSYCHIATRIC: Denies anxiety or stress. Denies depression, suicidal ideation, or homicidal ideation. ALL OTHER SYSTEMS REVIEWED AND NEGATIVE. Dictation was performed using [employer] voice recognition software - REPRODUCTIVE Reproductive: DENIES: : - DERM Skin Color: Normal Past Medical History - Social History Smoking Status: Unknown if Ever Smoked Family History: Reviewed & Not Pertinent, Arthritis, CAD, CVA, DM, Hyperlipidemia, Hypertension, Malignancy, Thyroid Disfunction Patient has suicidal ideation: No Patient has homicidal ideation: No - Past Medical History Cardiac Medical History: Reports: Hx Hypertension Denies: Hx Congestive Heart Failure, Hx Heart Attack Pulmonary Medical History: Reports: Hx Asthma, Hx Pneumonia - 2017 Denies: Hx Bronchitis, Hx COPD, Hx Tuberculosis Neurological Medical History: Denies: Hx Cerebrovascular Accident, Hx Seizures Renal/ Medical History: Denies: Hx Peritoneal Dialysis GI Medical History: Reports: Hx Gastroesophageal Reflux Disease, Hx Irritable Bowel, Hx Ulcer Musculoskeltal Medical History: Reports Hx Arthritis - rheumatoid, DDD, Reports Hx Musculoskeletal Deformity, Reports Hx Musculoskeletal Trauma Psychiatric Medical History: Reports: Hx Anxiety, Hx Depression Past Surgical History: Reports: Hx Abdominal Surgery - small intestine removal, Hx Appendectomy, Hx Bowel Surgery - small intestine, Hx Breast Surgery - biopsy , Hx Hysterectomy, Hx Neurologic Surgery - brain tumor removed, Hx Tonsillectomy. Denies: Hx Open Heart Surgery - Immunizations Immunizations up to date: Yes Hx Diphtheria, Pertussis, Tetanus Vaccination: Yes - 09/2010 Hx Pneumococcal Vaccination: 08/24/10 Vertical Provider Document - CONSTITUTIONAL Agree With Documented VS: Yes Notes: PHYSICAL EXAMINATION: GENERAL: Well-appearing, well-nourished and in no acute distress. HEAD: Atraumatic, normocephalic. EYES: Pupils equal round and reactive to light, extraocular movements intact, sclera anicteric, conjunctiva are normal. ENT: EAC clear b/l. TM's intact b/l without erythema, fluid, or perforation. Nares patent and without discharge. oropharynx clear without exudates. No tonsilar hypertrophy or erythema. Moist mucous membranes. No sinus tenderness. NECK: Normal range of motion, supple without lymphadenopathy. No rigidity. Spurling negative. LUNGS: Breath sounds clear to auscultation bilaterally and equal. No wheezes rales or rhonchi. HEART: Regular rate and rhythm without murmurs, rubs, gallops. Abd: BS present. Non-tender. Non-distended. No pulsatile mass/bruits. No CVAT b/l. Musculoskeletal: UE's b/l: FROM to passive/active. Strength 5+/5. No focal weakness/paralysis. Extremities: No cyanosis, clubbing, or edema b/l. Peripheral pulses 2+. Capillary refill less than 2 seconds. NEUROLOGICAL: MMSE intact. Cranial nerves grossly intact. Normal speech, normal gait. Normal sensory, motor exams. Reflexes 2+. PSYCH: Normal mood, normal affect. SKIN: Warm, Dry, normal turgor, no rashes or lesions noted. - INFECTION CONTROL TRAVEL OUTSIDE OF THE [place] IN LAST 30 DAYS: No - RESPIRATORY O2 Sat by Pulse Oximetry: 100 Course - Re-evaluation Re-evalutation: 02/26/17 19:38 Patient is an afebrile, well-hydrated, 58-year-old female who presents to the ED with generalized joint pain, neck pain chronically. Vitals are stable. PE otherwise unremarkable for any focal neurological deficits. Patient came to the ED and request of a Toradol injection for her inflammation, and she has been following regularly with orthopedics for an appointment yesterday and another one scheduled for tomorrow for further evaluation of her C-spine and L- spine. Patient has no acute changes in her symptoms since her visit with or so yesterday. Low suspicion for any AAA, cauda equina, epidural mass lesion, severe spinal stenosis, meningismus, or fracture. Solu-Medrol 125 mg given IM today along with 30 mg of Toradol IM. Conservative measures for symptoms otherwise. Patient noted improvement in her symptoms prior to discharge. Return to the ED with any worsening/concerning symptoms otherwise. Keep consult with orthopedics tomorrow. Patient is in agreement. - Vital Signs Vital signs: Temp Pulse Resp BP Pulse Ox 98.4 F 80 18 146/83 H 100 02/26/17 15:49 02/26/17 15:49 02/26/17 15:49 02/26/17 15:49 02/26/17 15:49 Discharge - Discharge Clinical Impression: Chronic neck pain Chronic back pain Qualifiers: Back pain location: back pain in unspecified location Back pain laterality: unspecified Qualified Code(s): M54.9 - Dorsalgia, unspecified Instructions: Toradol Injection ([facility]) Additional Instructions: Rest, Ice, Compression, Elevation Tylenol/ibuprofen as needed Light stretches daily Strength exercises as able Moist heat and massage may help F/u with your PCP in 2-3 days for a recheck Consider consult(s) with Orthopedics for ongoing/worsening symptoms. keep scheduled appointment tomorrow with Ortho. Return to the ED with any worsening symptoms and/or development of fever, headache, chest pain, palpitations, syncope, shortness of breath, trouble breathing, abdominal pain, n/v/d, blood in stool/urine, loss of control of bowel /bladder, urinary retention, muscle weakness/paralysis, numbness/tingling, or other worsening symptoms that are concerning to you. Forms: Elevated Blood Pressure Referrals: ARACELI BATRES MD [Primary Care Provider] - Follow up in 3-5 days
[2017-02-26 20:31] VITALS: BP 121/58
== END 2017-02-26 20:26 | disposition home or self-care (01) ==
LOC: ER 15:43
DX: G89.29 Other chronic pain (principal); M54.2 Cervicalgia; M54.9 Dorsalgia, unspecified; M50.30 Other cervical disc degeneration, unspecified cervical region; M06.9 Rheumatoid arthritis, unspecified; I10 Essential (primary) hypertension; J45.909 Unspecified asthma, uncomplicated; Z98.890 Other specified postprocedural states
CPT/HCPCS: 99283; 96372; J2930; J1885

== ENCOUNTER 2017-03-06 21:29 | Emergency (ER) | payer MEDICARE, MEDICAID ==
[2017-03-06 21:43] VITALS: BP 149/78
--- NOTE | 2017-03-06 23:12 | ER Document Report ---
ED GI/ - General Chief Complaint: Abdominal Pain Stated Complaint: STOMACH PAIN Time Seen by Provider: 03/06/17 23:07 Notes: Patient is a 66-year-old female who comes emergency department for chief complaint of mid to lower abdominal pain for the past 2 days. She states it is worse on the left side. She had a bowel movement today, states it was nonbloody and normal. She states she has had some urinary hesitation. She denies dysuria, fever, flank pain, chest pain, dizziness. Patient has had a hysterectomy, has a long history of ongoing abdominal pains. She has had an endoscopy and colonoscopy within the past 6 months she tells me and these were unremarkable except for diverticulosis. TRAVEL OUTSIDE OF THE [place] IN LAST 30 DAYS: No - Related Data Allergies/Adverse Reactions: Penicillins Allergy (Severe, Verified 02/26/17 15:49) Anaphylaxis Sulfa (Sulfonamide Antibiotics) Allergy (Intermediate, Verified 02/26/17 15:49) iching, nausea ciprofloxacin [From Cipro] Allergy (Mild, Verified 02/26/17 15:49) itching, nausea meperidine HCl [From Demerol] Allergy (Mild, Verified 02/26/17 15:49) heart palpitations Past Medical History - General Information source: Patient - Social History Smoking Status: Never Smoker Frequency of alcohol use: None Drug Abuse: None Lives with: Family Family History: Reviewed & Not Pertinent, Arthritis, CAD, CVA, DM, Hyperlipidemia, Hypertension, Malignancy, Thyroid Disfunction Patient has suicidal ideation: No Patient has homicidal ideation: No - Past Medical History Cardiac Medical History: Reports: Hx Hypertension Denies: Hx Congestive Heart Failure, Hx Heart Attack Pulmonary Medical History: Reports: Hx Asthma, Hx Pneumonia - 2017 Denies: Hx Bronchitis, Hx COPD, Hx Tuberculosis Neurological Medical History: Denies: Hx Cerebrovascular Accident, Hx Seizures Renal/ Medical History: Denies: Hx Peritoneal Dialysis GI Medical History: Reports: Hx Gastroesophageal Reflux Disease, Hx Irritable Bowel, Hx Ulcer Musculoskeltal Medical History: Reports Hx Arthritis - rheumatoid, DDD, Reports Hx Musculoskeletal Deformity, Reports Hx Musculoskeletal Trauma Psychiatric Medical History: Reports: Hx Anxiety, Hx Depression Past Surgical History: Reports: Hx Abdominal Surgery - small intestine removal, Hx Appendectomy, Hx Bowel Surgery - small intestine, Hx Breast Surgery - biopsy , Hx Hysterectomy, Hx Neurologic Surgery - brain tumor removed, Hx Tonsillectomy. Denies: Hx Open Heart Surgery - Immunizations Immunizations up to date: Yes Hx Diphtheria, Pertussis, Tetanus Vaccination: Yes - 09/2010 Hx Pneumococcal Vaccination: 08/24/10 Review of Systems - Review of Systems Constitutional: No symptoms reported EENT: No symptoms reported Cardiovascular: No symptoms reported Respiratory: No symptoms reported Gastrointestinal: See HPI Genitourinary: No symptoms reported Female Genitourinary: No symptoms reported Musculoskeletal: No symptoms reported Skin: No symptoms reported Hematologic/Lymphatic: No symptoms reported Neurological/Psychological: No symptoms reported Physical Exam - Vital signs Vitals: Temp Pulse Resp BP Pulse Ox 98.7 F 79 19 149/78 H 100 03/06/17 21:40 03/06/17 21:40 03/06/17 21:40 03/06/17 21:40 03/06/17 21:40 Interpretation: Normal - General General appearance: Appears well, Alert In distress: None - Patient resting quietly with her eyes closed on initial evaluation - HEENT Head: Normocephalic, Atraumatic Eyes: Normal Conjunctiva: Normal Extraocular movements intact: Yes Eyelashes: Normal Pupils: PERRL Nasal: Normal Mouth/Lips: Normal Mucous membranes: Normal Pharynx: Normal Neck: Normal - Respiratory Respiratory status: No respiratory distress Chest status: Nontender Breath sounds: Normal. No: Decreased air movement, Wheezing Chest palpation: Normal - Cardiovascular Rhythm: Regular. No: Tachycardia Heart sounds: Normal auscultation, S1 appreciated, S2 appreciated Murmur: No - Abdominal Inspection: Normal Distension: No distension Bowel sounds: Normal Tenderness: Tender - Patient's abdomen is soft and benign, patient complains of pain regardless of where I press, no guarding, no rigidity, no rebound tenderness Organomegaly: No organomegaly - Back Back: Normal, Nontender. No: Tender, CVA tenderness - Extremities General upper extremity: Normal inspection, Nontender, Normal color, Normal ROM , Normal temperature General lower extremity: Normal inspection, Nontender, Normal color, Normal ROM , Normal temperature, Normal weight bearing. No: Guille's sign - Neurological Neuro grossly intact: Yes Cognition: Normal Orientation: AAOx4 Douglas Coma Scale Eye Opening: Spontaneous Ji Coma Scale Verbal: Oriented Douglas Coma Scale Motor: Obeys Commands Ji Coma Scale Total: 15 Speech: Normal Motor strength normal: LUE, RUE, LLE, RLE Sensory: Normal - Psychological Associated symptoms: Normal affect, Normal mood - Skin Skin Temperature: Warm Skin Moisture: Dry Skin Color: Normal Course - Re-evaluation Re-evalutation: Laboratory workup unremarkable, physical examination unremarkable, vital signs unremarkable. Patient is very well-known to this department, frequently complaining of abdominal pain. Patient resting comfortably again on reexamination. Patient stating she needs an enema. Acute abdominal series does not show bowel dilatation, large stool load, or any acute abnormalities. I do not feel this would help patient. She is already having normal bowel movements. Patient given Bentyl, prescription of Bentyl, instructed to follow-up with her doffer, she states she is going to see him tomorrow. Discussed return precautions, patient states understanding and agreement. - Vital Signs Vital signs: Temp Pulse Resp BP Pulse Ox 98.7 F 79 19 149/78 H 100 03/06/17 21:40 03/06/17 21:40 03/06/17 21:40 03/06/17 21:40 03/06/17 21:40 - Laboratory Result Diagrams: 03/07/17 00:29 03/07/17 00:29 Laboratory results interpreted by me: 03/07/17 03/07/17 00:29 00:29 WBC 11.0 H Hgb 11.8 L RDW 15.8 H BUN 5 L Discharge - Discharge Clinical Impression: Abdominal pain Qualifiers: Abdominal location: generalized Qualified Code(s): R10.84 - Generalized abdominal pain Condition: Stable Disposition: HOME, SELF-CARE Additional Instructions: Your workup shows no concerning abnormalities. Take the Bentyl as prescribed for cramping if needed. Continued daily regular medications. Follow-up with your primary care provider. Return to emergency department for any concerning or worsening symptoms including vomiting, fever, worsening pain, etc. Prescriptions: Dicyclomine HCl [Bentyl 20 mg Tablet] 20 mg PO QID #20 tablet
--- NOTE | 2017-03-06 23:50 | RADIOLOGY REPORT (SQ) ---
EXAM DESCRIPTION: ACUTE ABDOMEN SERIES COMPLETED DATE/TIME: 03/06/2017 11:39 pm REASON FOR STUDY: abdominal pain COMPARISON: CT and chest films from November. NUMBER OF VIEWS: Three views. TECHNIQUE: Frontal chest, supine abdomen and upright/decubitus abdomen radiographic images acquired. LIMITATIONS: None. FINDINGS: CHEST: Lungs clear of infiltrates. FREE AIR: None. No abnormal gas collections. BOWEL GAS PATTERN: Nonobstructive pattern. No dilated loops or air fluid levels. CALCIFICATIONS: No suspicious calcifications. HARDWARE: None in the abdomen. SOFT TISSUES: No gross mass or suggestion of organomegaly. BONES: No acute fracture. No worrisome bone lesions. OTHER: No other significant finding. IMPRESSION: NO RADIOGRAPHIC EVIDENCE FOR ACUTE ABDOMINAL DISEASE. TECHNICAL DOCUMENTATION: JOB ID: [id number] [employer]- All Rights Reserved
[2017-03-07 00:26] LABS: APPEARANCE,URINE CLEAR; BILIRUBIN,URINE NEGATIVE (NEGATIVE); GLUCOSE, URINE NEGATIVE (NEGATIVE); KETONES,URINE NEGATIVE (NEGATIVE); LEUKOCYTE ESTERASE,URINE NEGATIVE (NEGATIVE); NITRITE,URINE NEGATIVE (NEGATIVE); PROTEIN,URINE NEGATIVE (NEGATIVE); URINE SPECIFIC GRAVITY 1.002; UROBILINOGEN,URINE NEGATIVE mg/dL (<2.0)
[2017-03-07 00:49] LABS: ABSOLUTE EOSINOPHILS # (AUTO) 0.3 10^3/uL (0.0-0.6); ABSOLUTE LYMPHOCYTES (AUTO) 2.2 10^3/uL (0.5-4.7); ABSOLUTE MONOCYTES (AUTO) 0.8 10^3/uL (0.1-1.4); ABSOLUTE NEUT (AUTO) 7.7 10^3/uL (1.7-8.2); BASOPHILS % (AUTO) 0.1 % (0-2); EOSINOPHILS % (AUTO) 2.7 % (0-6); HEMATOCRIT 36.4 % (36.0-47.0); HEMOGLOBIN 11.8 g/dL (12.0-15.5); LYMPHOCYTES % (AUTO) 20.4 % (13-45); MEAN CORPUSCULAR HEMOGLOBIN 28.5 pg (27.0-33.4); MEAN CORPUSCULAR HGB CONC 32.3 g/dL (32.0-36.0); MEAN CORPUSCULAR VOLUME 88 fl (80-97); MONOCYTES % (AUTO) 6.8 % (3-13); RED BLOOD COUNT 4.12 10^6/uL (3.72-5.28); RED CELL DISTRIBUTION WIDTH 15.8 % (11.5-14.0)
[2017-03-07] MEDS ORDERED: ONDANSETRON 4 MG TAB.RAPDIS PO ONE (01:13)
[2017-03-07 01:23] LABS: ALANINE AMINOTRANSFERASE 22 U/L (9-52); ALKALINE PHOSPHATASE 90 U/L (38-126); ANION GAP 13 (5-19); ASPARTATE AMINO TRANSFERASE 17 U/L (14-36); BILIRUBIN,DIRECT 0.3 mg/dL (0.0-0.4); BILIRUBIN,TOTAL 0.7 mg/dL (0.2-1.3); BLOOD UREA NITROGEN 5 mg/dL (7-20); CALCIUM 9.5 mg/dL (8.4-10.2); CARBON DIOXIDE 23 mmol/L (22-30); CHLORIDE 103 mmol/L (98-107); CREATININE RESULT 0.73 mg/dL (0.52-1.25); GLUCOSE 91 mg/dL (75-110); LIPASE 56.2 U/L (23-300); POTASSIUM 4.6 mmol/L (3.6-5.0); SODIUM 138.9 mmol/L (137-145); TOTAL PROTEIN 7.1 g/dL (6.3-8.2)
[2017-03-07] MEDS ORDERED: DICYCLOMINE HCL 20 MG TABLET PO ONE (01:36)
[2017-03-07] MEDS ORDERED: KETOROLAC TROMETHAMINE 60 MG/2 ML SDV IM ONE (01:39)
== END 2017-03-07 02:16 | disposition home or self-care (01) ==
LOC: ER 21:29
DX: R10.84 Generalized abdominal pain (principal); R10.30 Lower abdominal pain, unspecified; R39.11 Hesitancy of micturition
CPT/HCPCS: 99284; 96372; 36415; 83690; 85025; 80053; 81001; 74022; A9270 ×2; J1885; J3490; S0119

== ENCOUNTER 2017-03-07 15:09 | Emergency (ER) | payer MEDICARE, MEDICAID ==
[2017-03-07 15:27] VITALS: BP 132/77
[2017-03-07] MEDS ORDERED: KETOROLAC TROMETHAMINE INJ/PF 30 MG/1 ML SDV IM ONE (15:58)
--- NOTE | 2017-03-07 15:58 | ER Document Report ---
HPI - HPI Patient complains to provider of: back pain Onset: This morning Onset/Duration: Sudden Quality of pain: Achy Pain Level: 2 Context: was seen here last night for IBS, now states she thinks she slept funny. able to walk, bear weight, denies any UI,SI,SA, fall/trauma - REPRODUCTIVE Reproductive: DENIES: : - DERM Skin Color: Normal Past Medical History - Social History Smoking Status: Unknown if Ever Smoked Family History: Reviewed & Not Pertinent, Arthritis, CAD, CVA, DM, Hyperlipidemia, Hypertension, Malignancy, Thyroid Disfunction Patient has suicidal ideation: No Patient has homicidal ideation: No - Past Medical History Cardiac Medical History: Reports: Hx Hypertension Denies: Hx Congestive Heart Failure, Hx Heart Attack Pulmonary Medical History: Reports: Hx Asthma, Hx Pneumonia - 2017 Denies: Hx Bronchitis, Hx COPD, Hx Tuberculosis Neurological Medical History: Denies: Hx Cerebrovascular Accident, Hx Seizures Renal/ Medical History: Denies: Hx Peritoneal Dialysis GI Medical History: Reports: Hx Gastroesophageal Reflux Disease, Hx Irritable Bowel, Hx Ulcer Musculoskeltal Medical History: Reports Hx Arthritis - rheumatoid, DDD, Reports Hx Musculoskeletal Deformity, Reports Hx Musculoskeletal Trauma Psychiatric Medical History: Reports: Hx Anxiety, Hx Depression Past Surgical History: Reports: Hx Abdominal Surgery - small intestine removal, Hx Appendectomy, Hx Bowel Surgery - small intestine, Hx Breast Surgery - biopsy , Hx Hysterectomy, Hx Neurologic Surgery - brain tumor removed, Hx Tonsillectomy. Denies: Hx Open Heart Surgery - Immunizations Immunizations up to date: Yes Hx Diphtheria, Pertussis, Tetanus Vaccination: Yes - 09/2010 Hx Pneumococcal Vaccination: 08/24/10 Vertical Provider Document - INFECTION CONTROL TRAVEL OUTSIDE OF THE [place] IN LAST 30 DAYS: No - RESPIRATORY O2 Sat by Pulse Oximetry: 100 - CARDIOVASCULAR Pulses: Normal: Radial, Dorsalis pedis - GI/ABDOMEN Gastrointestinal: Abdomen Soft, Abdomen Non-Tender, No Organomegaly, Abnormal Bowel Sounds - BACK Back: Normal Inspection Notes: Thoracic and lumbar paraspinous muscle tenderness. No evidence of spinous process tenderness, deformity, step-offs. No CVA tenderness. - MUSCULOSKELETAL/EXTREMETIES Musculoskeletal/Extremeties: MAEW, FROM, Non-Tender, No Edema. negative: Eccymosis - NEURO Level of Consciousness: Awake, Alert, Appropriate Motor/Sensory: No Motor Deficit, No Sensory Deficit - DERM Integumentary: Warm, Dry, No Rash Course - Re-evaluation Re-evalutation: 03/07/17 20:45 The patient presents with low back pain without signs of spinal cord compression , cauda equina syndrome, infection, aneurysm, or other serious etiology. The patient is neurologically intact. Given the extremely low risk of these diagnoses further testing and evaluation for these possibilities does not appear to be indicated at this time. The patient has been instructed to return if the symptoms worsen or change in any way. - Vital Signs Vital signs: Temp Pulse Resp BP Pulse Ox 98.3 F 77 20 132/77 H 100 03/07/17 15:25 03/07/17 15:25 03/07/17 15:25 03/07/17 15:25 03/07/17 15:25 Discharge - Discharge Clinical Impression: Back pain Qualifiers: Back pain location: low back pain Chronicity: chronic Back pain laterality: midline Sciatica presence: without sciatica Qualified Code(s): M54.5 - Low back pain Condition: Good Disposition: HOME, SELF-CARE Instructions: Low Back Pain ([facility]), Pain Medication Injection ([facility]), Warm Packs ([facility]), Ice Packs ([facility]) Prescriptions: Naproxen [Naprosyn 375 Mg Tablet] 375 mg PO DAILY #14 tablet Referrals: ARACELI CORTEZ MD [ACTIVE STAFF] - Follow up as needed
[2017-03-07] MEDS ORDERED: METHYLPREDNISOLONE INJ 125 MG/2 ML SDV IM ONE (16:20)
== END 2017-03-07 17:08 | disposition home or self-care (01) ==
LOC: ER 15:09
DX: M54.5 Low back pain (principal); I10 Essential (primary) hypertension; J45.909 Unspecified asthma, uncomplicated; K21.9 Gastro-esophageal reflux disease without esophagitis; Z90.710 Acquired absence of both cervix and uterus
CPT/HCPCS: 99283; 96372; J2930; J1885

== ENCOUNTER → 2017-03-09 | Outpatient (CLI) | payer MEDICARE, MEDICAID ==
[2017-03-09 16:25] LABS: ABSOLUTE BASOPHILS # (AUTO) 0.1 10^3/uL (0.0-0.2); ABSOLUTE EOSINOPHILS # (AUTO) 0.2 10^3/uL (0.0-0.6); ABSOLUTE LYMPHOCYTES (AUTO) 2.4 10^3/uL (0.5-4.7); ABSOLUTE MONOCYTES (AUTO) 0.7 10^3/uL (0.1-1.4); ABSOLUTE NEUT (AUTO) 7.4 10^3/uL (1.7-8.2); BASOPHILS % (AUTO) 0.5 % (0-2); EOSINOPHILS % (AUTO) 1.8 % (0-6); HEMATOCRIT 36.1 % (36.0-47.0); HEMOGLOBIN 11.8 g/dL (12.0-15.5); HGB HCT DIFFERENCE -0.7; LYMPHOCYTES % (AUTO) 22.5 % (13-45); MEAN CORPUSCULAR HGB CONC 32.6 g/dL (32.0-36.0); MEAN CORPUSCULAR VOLUME 89 fl (80-97); MONOCYTES % (AUTO) 6.6 % (3-13); RED BLOOD COUNT 4.06 10^6/uL (3.72-5.28); RED CELL DISTRIBUTION WIDTH 16.2 % (11.5-14.0); SEGMENTED NEUTROPHILS % (AUTO) 68.6 % (42-78); WHITE BLOOD COUNT 10.9 10^3/uL (4.0-10.5)
== END ==
LOC: OD 15:27
PROVIDERS: ATTEND Specialist
DX: R10.9 Unspecified abdominal pain (principal); D50.9 Iron deficiency anemia, unspecified
CPT/HCPCS: 36415; 85025

== ENCOUNTER 2017-03-13 10:13 | Emergency (ER) | payer MEDICARE, MEDICAID ==
[2017-03-13] MEDS ORDERED: KETOROLAC TROMETHAMINE INJ/PF 30 MG/1 ML SDV IM ONE ×2 (11:26→11:47)
--- NOTE | 2017-03-13 11:32 | ER Document Report ---
HPI - HPI Pain Level: 2 Notes: Patient with history of chronic back pain and frequent visits to the ED comes to the ED complaining of pain to her left mid back bilateral neck 1-2 days. Patient states that she has soreness and stiffness. Patient states that she cannot feel the "popping "sensation which helped relieve her pain before. Patient states that she is in physical therapy and and has been doing exercises as directed which is when she started noticing the soreness. Denies any loss of control of bowel or bladder, numbness/tingling, urinary retention, muscle paralysis/weakness. Her PCM is Dr. Cortez. Patient demanding x-ray because of the acute on chronic pain. Denies any fever, headache, chest pain, palpitation constantly, cough, wheeze, shortness of breath, abdominal pain, nausea/vomiting/diarrhea, hematuria, dysuria, rash. Denies any steroid injections into her back or neck. Denies any IV drug use. - ROS Notes: REVIEW OF SYSTEMS: CONSTITUTIONAL : Denies fever, chills, or sweats. Denies recent illness. EENT: Denies eye, ear, throat, or mouth pain or symptoms. Denies nasal or sinus congestion or discharge. Denies throat, tongue, or mouth swelling or difficulty swallowing. CARDIOVASCULAR: Denies chest pain. Denies palpitations or racing or irregular heart beat. Denies ankle edema. RESPIRATORY: Denies cough, cold, or chest congestion. Denies shortness of breath, difficulty breathing, or wheezing. GASTROINTESTINAL: Denies abdominal pain or distention. Denies nausea, vomiting , or diarrhea. Denies blood in vomitus, stools, or per rectum. Denies black, tarry stools. Denies constipation. GENITOURINARY: Denies difficulty urinating, painful urination, burning, frequency, blood in urine, or discharge. MUSCULOSKELETAL: see hpi SKIN: Denies rash, lesions or sores. NEUROLOGICAL: Denies confusion or altered mental status. Denies passing out or loss of consciousness. Denies dizziness or lightheadedness. Denies headache. Denies weakness or paralysis or loss of use of either side. Denies problems with gait or speech. Denies sensory loss, numbness, or tingling. ALL OTHER SYSTEMS REVIEWED AND NEGATIVE. Dictation was performed using [employer] voice recognition software - CARDIOVASCULAR Cardiovascular: DENIES: Chest pain - REPRODUCTIVE Reproductive: DENIES: : - DERM Skin Color: Normal Past Medical History - Social History Smoking Status: Never Smoker Chew tobacco use (# tins/day): No Frequency of alcohol use: None Drug Abuse: None Family History: Reviewed & Not Pertinent, Arthritis, CAD, CVA, DM, Hyperlipidemia, Hypertension, Malignancy, Thyroid Disfunction Patient has suicidal ideation: No Patient has homicidal ideation: No - Past Medical History Cardiac Medical History: Reports: Hx Hypertension Denies: Hx Congestive Heart Failure, Hx Heart Attack Pulmonary Medical History: Reports: Hx Asthma, Hx Pneumonia - 2017 Denies: Hx Bronchitis, Hx COPD, Hx Tuberculosis Neurological Medical History: Denies: Hx Cerebrovascular Accident, Hx Seizures Renal/ Medical History: Denies: Hx Peritoneal Dialysis GI Medical History: Reports: Hx Gastroesophageal Reflux Disease, Hx Irritable Bowel, Hx Ulcer Musculoskeltal Medical History: Reports Hx Arthritis - rheumatoid, DDD, Reports Hx Musculoskeletal Deformity, Reports Hx Musculoskeletal Trauma Psychiatric Medical History: Reports: Hx Anxiety, Hx Depression Past Surgical History: Reports: Hx Abdominal Surgery - small intestine removal, Hx Appendectomy, Hx Bowel Surgery - small intestine, Hx Breast Surgery - biopsy , Hx Hysterectomy, Hx Neurologic Surgery - brain tumor removed, Hx Tonsillectomy. Denies: Hx Open Heart Surgery - Immunizations Immunizations up to date: Yes Hx Diphtheria, Pertussis, Tetanus Vaccination: Yes - 09/2010 Hx Pneumococcal Vaccination: 08/24/10 Vertical Provider Document - CONSTITUTIONAL Agree With Documented VS: Yes Notes: PHYSICAL EXAMINATION: GENERAL: Well-appearing, well-nourished and in no acute distress. NECK: Normal range of motion, supple without lymphadenopathy. No rigidity. No midline tenderness. Spurling negative. NEXUS negative. + muscle tenderness b/l and to the left trap mm. Chest: No flail chest. equal rise/fall. Non-tender LUNGS: Breath sounds clear to auscultation bilaterally and equal. No wheezes rales or rhonchi. HEART: Regular rate and rhythm without murmurs, rubs, gallops. ABDOMEN: Soft, nontender, nondistended abdomen. No guarding, no rebound. No masses appreciated. Normal bowel sounds present. No CVA tenderness bilaterally. No pulsatile mass. Musculoskeletal: Ext b/l: FROM to passive/active. Strength 5+/5. No deficits noted. No bony tenderness of extremities. Back: FROM to passive/active. Strength 5+/5. No vertebral point tenderness, stepoffs, or deformities. No other bony tenderness or ecchymosis. SLR negative b/l. + T-paraspinal mm tenderness L>R. + tenderness to the left scapular area as well. Extremities: No cyanosis, clubbing, or edema b/l. Peripheral pulses 2+. Capillary refill less than 2 seconds. NEUROLOGICAL: MMSE intact. Cranial nerves grossly intact. Normal speech, normal gait. Normal sensory, motor exams. Reflexes 2+ b/l. ROBE's negative. Pronator drift negative. Heel/ho, finger/nose wnl. Walking on heels/toes and heel to toe wnl. PSYCH: Normal mood, normal affect. SKIN: Warm, Dry, normal turgor, no rashes or lesions noted. - INFECTION CONTROL TRAVEL OUTSIDE OF THE [place] IN LAST 30 DAYS: No - RESPIRATORY O2 Sat by Pulse Oximetry: 100 Course - Re-evaluation Re-evalutation: 03/13/17 11:55 Patient is an afebrile, well-hydrated, 66-year-old female presents to the ED with acute on chronic back pain. Vitals stable. PE otherwise unremarkable for any focal neurological deficits. Low suspicion for any meningitis, fracture, expanding/ruptured AAA, cauda equina syndrome, epidural mass lesion/abscess, herniated disc causing severe spinal stenosis, or other systemic infection at this time. Patient is aware that his condition can change from initial presentation and that he needs monitor symptoms closely for any acute changes. Patient continues to demand multiple x-rays. Advised that I will only do an x- ray of the left scapular area; although, I have a low suspicion for any fracture at this time. X-ray was unremarkable for any acute fracture dislocation. Patient also continued to demand a high dose of Toradol. I reiterated that she cannot keep getting frequent Toradol injections and steroid injections. Advised that Toradol 15 mg is sufficient based on the research. Pt continued to refuse the 15mg toardol and stated that she will just come right back to the ED if she does not get 30mg of toradol. Reviewed with Dr. Poole who stated to just give the 30mg and if she causes any problems to call security. Toradol 30mg given IM. I will send her home with a prescription for Voltaren gel. Recheck with her PCM this week. Return to the ED with any worsening/concerning symptoms otherwise as reviewed in discharge. Continue with physical therapy. Patient is in agreement. - Vital Signs Vital signs: Temp Pulse Resp BP Pulse Ox 97.9 F 76 16 135/59 H 100 03/13/17 10:25 03/13/17 10:25 03/13/17 10:25 03/13/17 10:25 03/13/17 10:25 Discharge - Discharge Clinical Impression: Neck pain, musculoskeletal Condition: Stable Disposition: HOME, SELF-CARE Instructions: Ice Packs ([facility]), Ice Massage ([facility]), Warm Packs ([facility]) Additional Instructions: Rest, Ice, Compression, Elevation Tylenol/ibuprofen as needed Light stretches daily Strength exercises as able Moist heat and massage may help F/u with your PCP in 2-3 days for a recheck Consider consult(s) with Orthopedics for ongoing/worsening symptoms Return to the ED with any worsening symptoms and/or development of fever, headache, chest pain, palpitations, syncope, shortness of breath, trouble breathing, abdominal pain, n/v/d, blood in stool/urine, loss of control of bowel /bladder, urinary retention, muscle weakness/paralysis, saddle anesthesia, numbness/tingling, or other worsening symptoms that are concerning to you. Prescriptions: Diclofenac Sodium [Voltaren] 4 gm TP QID PRN #100 gel..gm. PRN Reason: Forms: Elevated Blood Pressure Referrals: ARACELI CORTEZ MD [Primary Care Provider] - Follow up in 3-5 days
--- NOTE | 2017-03-13 11:51 | RADIOLOGY REPORT (SQ) ---
EXAM DESCRIPTION: SCAPULA LEFT COMPLETED DATE/TIME: 03/13/2017 11:39 am REASON FOR STUDY: pain to the area COMPARISON: None. TECHNIQUE: Three views left scapula. LIMITATIONS: None. FINDINGS: Bone mineralization is normal. No displaced fracture or suspicious osseous lesion. Soft tissues normal. Visible portion left lung is clear. IMPRESSION: NO DISPLACED SCAPULAR FRACTURE IDENTIFIED. TECHNICAL DOCUMENTATION: JOB ID: [id number] [employer] All Rights Reserved
[2017-03-13 13:26] VITALS: BP 149/71
== END 2017-03-13 12:05 | disposition home or self-care (01) ==
LOC: ER 10:13
DX: M54.2 Cervicalgia (principal); M79.1 Myalgia; G89.29 Other chronic pain; M54.9 Dorsalgia, unspecified; I10 Essential (primary) hypertension; Z90.710 Acquired absence of both cervix and uterus
CPT/HCPCS: 99283; 96372; 73010; J1885

== ENCOUNTER 2017-03-18 18:43 | Emergency (ER) | payer MEDICARE, MEDICAID ==
[2017-03-18] MEDS ORDERED: LORAZEPAM 0.5 MG TABLET PO ONE (19:34)
--- NOTE | 2017-03-18 19:40 | ER Document Report ---
ED Medical Screen (RME) - General Chief Complaint: Anxiety Stated Complaint: POSSIBLE ANXIETY Time Seen by Provider: 03/18/17 19:31 Mode of Arrival: Ambulatory Information source: Patient TRAVEL OUTSIDE OF THE U.S. IN LAST 30 DAYS: No - HPI Onset: This afternoon Onset/Duration: Sudden Context: LOOKED AT PHOTO OF DAUGHTER WHO 19 MONTHS AGO, HAD EMOTIONAL DECOMPENSATION. Quality of pain: Pressure Severity: Moderate Associated Symptoms: Shortness of breath, Other - PALPITATIONS Exacerbated by: Denies Relieved by: Other - SLOWLY IMPROVING W/ TIME Similar symptoms previously: Yes Recently seen / treated by doctor: No - Related Data Smoking: Non-smoker Frequency of alcohol use: None Drug Abuse: None Allergies/Adverse Reactions: Penicillins Allergy (Severe, Verified 03/18/17 18:54) Anaphylaxis Sulfa (Sulfonamide Antibiotics) Allergy (Intermediate, Verified 03/18/17 18:54) iching, nausea ciprofloxacin [From Cipro] Allergy (Mild, Verified 03/18/17 18:54) itching, nausea meperidine HCl [From Demerol] Allergy (Mild, Verified 03/18/17 18:54) heart palpitations Past Medical History - General Information source: Patient - Social History Cigarette use (# per day): No Chew tobacco use (# tins/day): No Frequency of alcohol use: None Drug Abuse: None Lives with: Alone Family history: Reviewed & Not Pertinent - Past Medical History Cardiac Medical History: Reports: Hx Hypertension Denies: Hx Congestive Heart Failure, Hx Heart Attack Pulmonary Medical History: Reports: Hx Asthma, Hx Pneumonia - 2017 Denies: Hx Bronchitis, Hx COPD, Hx Tuberculosis Neurological Medical History: Denies: Hx Cerebrovascular Accident, Hx Seizures Endocrine Medical History: Reports: None Renal/ Medical History: Denies: Hx Peritoneal Dialysis GI Medical History: Reports: Hx Gastroesophageal Reflux Disease, Hx Irritable Bowel, Hx Ulcer Musculoskeltal Medical History: Reports Hx Arthritis - rheumatoid, DDD, Reports Hx Musculoskeletal Deformity, Reports Hx Musculoskeletal Trauma Psychiatric Medical History: Reports: Hx Anxiety, Hx Depression Past Surgical History: Reports: Hx Abdominal Surgery - small intestine removal, Hx Appendectomy, Hx Bowel Surgery - small intestine, Hx Breast Surgery - biopsy , Hx Hysterectomy, Hx Neurologic Surgery - brain tumor removed, Hx Tonsillectomy. Denies: Hx Open Heart Surgery - Immunizations Immunizations up to date: Yes Hx Diphtheria, Pertussis, Tetanus Vaccination: Yes - 09/2010 Review of Systems - Review of Systems Constitutional: No symptoms reported EENT: No symptoms reported Cardiovascular: See HPI Respiratory: See HPI Gastrointestinal: No symptoms reported Musculoskeletal: No symptoms reported Neurological/Psychological: See HPI Physical Exam - Vital signs Vitals: Temp Pulse Resp BP Pulse Ox 98.8 F 94 18 157/95 H 100 03/18/17 18:50 03/18/17 18:50 03/18/17 18:50 03/18/17 18:50 03/18/17 18:50 Interpretation: Hypertensive. No: Tachypneic - General General appearance: Appears well, Alert In distress: None Notes: INTERMITTENTLY HAS PAROXYSMS OF UNCONTROLLED SOBBING. - HEENT Head: Normocephalic Eyes: Normal - Respiratory Respiratory status: No respiratory distress Breath sounds: Normal - Cardiovascular Rhythm: Regular Heart sounds: Normal auscultation Murmur: No - Abdominal Inspection: Normal Distension: No distension - Extremities General upper extremity: Normal inspection General lower extremity: Normal inspection. No: Tender, Edema - Neurological Neuro grossly intact: Yes Cognition: Normal Orientation: AAOx4 - Psychological Associated symptoms: Anxious, Depressed, Tearful. No: Normal affect, Normal mood - Skin Skin Temperature: Warm Skin Moisture: Dry Skin Color: Normal Skin Turgor: Elastic Course - Vital Signs Vital signs: Temp Pulse Resp BP Pulse Ox 98.8 F 94 18 157/95 H 100 03/18/17 18:50 03/18/17 18:50 03/18/17 18:50 03/18/17 18:50 03/18/17 18:50 Doctor's Discharge - Discharge Clinical Impression: Grief reaction Condition: Stable Disposition: HOME, SELF-CARE Instructions: Anxiety ([facility]) Additional Instructions: CONTINUE YOUR USUAL MEDS. FOLLOW UP WITH YOUR PRIMARY CARE MEDICAL PROVIDER NEEDED. SEEK HELP FROM YOUR CONSTRUCTION MANAGEMENT ASSISTANT OR OTHER BEHAVIORAL HEALTH PROFESSIONAL TO HELP YOU WORK THROUGH YOUR BEREAVEMENT.
--- NOTE | 2017-03-18 20:32 | ER Document Report ---
ED General - General Chief Complaint: Anxiety Stated Complaint: POSSIBLE ANXIETY Time Seen by Provider: 03/18/17 19:31 Mode of Arrival: Ambulatory Notes: Patient is a 66-year-old female well-known to me and this emergency department who presents with concerns of an anxiety attack. Patient states she was looking at pictures of her daughter today, began to develop severe sensation of anxiety, began hyperventilating and felt palpitations. She denies a history of similar episodes in the past though she has been seen in the emergency department in the past for similar presentations. At the time of my assessment she notes that her symptoms are improved after receiving a dose of oral Ativan. She denies any additional acute medical complaints. TRAVEL OUTSIDE OF THE [place] IN LAST 30 DAYS: No - Related Data Allergies/Adverse Reactions: Penicillins Allergy (Severe, Verified 03/18/17 18:54) Anaphylaxis Sulfa (Sulfonamide Antibiotics) Allergy (Intermediate, Verified 03/18/17 18:54) iching, nausea ciprofloxacin [From Cipro] Allergy (Mild, Verified 03/18/17 18:54) itching, nausea meperidine HCl [From Demerol] Allergy (Mild, Verified 03/18/17 18:54) heart palpitations Past Medical History - General Information source: Patient - Social History Smoking Status: Never Smoker Cigarette use (# per day): No Chew tobacco use (# tins/day): No Frequency of alcohol use: None Drug Abuse: None Lives with: Alone Family History: Reviewed & Not Pertinent, Arthritis, CAD, CVA, DM, Hyperlipidemia, Hypertension, Malignancy, Thyroid Disfunction - Past Medical History Cardiac Medical History: Reports: Hx Hypertension Denies: Hx Congestive Heart Failure, Hx Heart Attack Pulmonary Medical History: Reports: Hx Asthma, Hx Pneumonia - 2017 Denies: Hx Bronchitis, Hx COPD, Hx Tuberculosis Neurological Medical History: Denies: Hx Cerebrovascular Accident, Hx Seizures Endocrine Medical History: Reports: None Renal/ Medical History: Denies: Hx Peritoneal Dialysis GI Medical History: Reports: Hx Gastroesophageal Reflux Disease, Hx Irritable Bowel, Hx Ulcer Musculoskeltal Medical History: Reports Hx Arthritis - rheumatoid, DDD, Reports Hx Musculoskeletal Deformity, Reports Hx Musculoskeletal Trauma Psychiatric Medical History: Reports: Hx Anxiety, Hx Depression Past Surgical History: Reports: Hx Abdominal Surgery - small intestine removal, Hx Appendectomy, Hx Bowel Surgery - small intestine, Hx Breast Surgery - biopsy , Hx Hysterectomy, Hx Neurologic Surgery - brain tumor removed, Hx Tonsillectomy. Denies: Hx Open Heart Surgery - Immunizations Immunizations up to date: Yes Hx Diphtheria, Pertussis, Tetanus Vaccination: Yes - 09/2010 Hx Pneumococcal Vaccination: 08/24/10 Review of Systems - Review of Systems Notes: Constitutional: Negative for fever. HENT: Negative for sore throat. Eyes: Negative for visual changes. Cardiovascular: Negative for chest pain. Respiratory: Negative for shortness of breath. Gastrointestinal: Negative for abdominal pain, vomiting or diarrhea. Genitourinary: Negative for dysuria. Musculoskeletal: Negative for back pain. Skin: Negative for rash. Neurological: Negative for headaches, weakness or numbness. 10 point ROS negative except as marked above and in HPI. Physical Exam - Vital signs Vitals: Temp Pulse Resp BP Pulse Ox 98.8 F 94 18 157/95 H 100 03/18/17 18:50 03/18/17 18:50 03/18/17 18:50 03/18/17 18:50 03/18/17 18:50 Interpretation: Hypertensive Notes: PHYSICAL EXAMINATION: GENERAL: Well-appearing, well-nourished and in no acute distress. HEAD: Atraumatic, normocephalic. EYES: Pupils equal round and reactive to light, extraocular movements intact, sclera anicteric, conjunctiva are normal. ENT: nares patent, oropharynx clear without exudates. Moist mucous membranes. NECK: Normal range of motion, supple without lymphadenopathy LUNGS: Breath sounds clear to auscultation bilaterally and equal. No wheezes rales or rhonchi. HEART: Regular rate and rhythm without murmurs ABDOMEN: Soft, nontender, normoactive bowel sounds. No guarding, no rebound. No masses appreciated. EXTREMITIES: Normal range of motion, no pitting or edema. No cyanosis. NEUROLOGICAL: No focal neurological deficits. Moves all extremities spontaneously and on command. PSYCH: Normal mood, normal affect. SKIN: Warm, Dry, normal turgor, no rashes or lesions noted. Course - Re-evaluation Re-evalutation: 03/18/17 20:32 Patient presents with history most consistent with an acute panic attack. The patient admits that these are symptoms identical to prior occasions of panic. There was a clear trigger for tonight's episode. Symptoms did resolve after receiving medical therapy here in the emergency department. Vitals otherwise within normal limits. I do not suspect an acute pulmonary embolus, ACS, pneumothorax, or any other acute left threatening pathology based on history and exam. I do not believe any labs or imaging are indicated at this time. At this time will discharge with return precautions and follow-up recommendations. Verbal discharge instructions given a the bedside and opportunity for questions given. Medication warnings reviewed. Patient is in agreement with this plan and has verbalized understanding of return precautions and the need for primary care follow-up in the next 24-72 hours. - Vital Signs Vital signs: Temp Pulse Resp BP Pulse Ox 97.7 F 72 18 155/82 H 100 03/18/17 21:00 03/18/17 21:00 03/18/17 21:00 03/18/17 21:00 03/18/17 21:00 Discharge - Discharge Clinical Impression: Grief reaction, Anxiety Condition: Stable Disposition: HOME, SELF-CARE Instructions: Anxiety ([facility]) Additional Instructions: CONTINUE YOUR USUAL MEDS. FOLLOW UP WITH YOUR PRIMARY CARE MEDICAL PROVIDER NEEDED. SEEK HELP FROM YOUR SUPERVISOR ELECTROLYTIC TINNING OR OTHER BEHAVIORAL HEALTH PROFESSIONAL TO HELP YOU WORK THROUGH YOUR BEREAVEMENT. Referrals: ARACELI CORTEZ MD [Primary Care Provider] - Follow up as needed
[2017-03-18 21:24] VITALS: BP 155/82
== END 2017-03-18 21:05 | disposition home or self-care (01) ==
LOC: ER 18:43
DX: F43.22 Adjustment disorder with anxiety (principal); I10 Essential (primary) hypertension; J45.909 Unspecified asthma, uncomplicated; Z88.5 Allergy status to narcotic agent; Z88.1 Allergy status to other antibiotic agents; Z88.2 Allergy status to sulfonamides; Z87.892 Personal history of anaphylaxis; Z88.0 Allergy status to penicillin
CPT/HCPCS: 99283; A9270

== ENCOUNTER 2017-03-19 19:33 | Emergency (ER) | payer MEDICARE, MEDICAID ==
[2017-03-19] MEDS ORDERED: FAMOTIDINE 20 MG TABLET PO ONE (20:01)
--- NOTE | 2017-03-19 20:17 | ER Document Report ---
HPI - HPI Pain Level: Denies Context: 66 yo female, well known to this ER, c/o high blood pressure. pt reports she checked her BP @ [facility] today and the reading was 159/81 and she felt flushed so she came to the ER for evaluation. pt was seen in ED last pm for a panic attack. pt was given an Ativan in ED for her acute symptoms, but no prescription was written. Today, pt is requesting a prescription for Ativan to help her nerves and help her sleep. Pt denies chest pain or shortness of breath. Exacerbated by: Denies Relieved by: Denies Similar symptoms previously: No Recently seen / treated by doctor: Yes - ROS Systems Reviewed and Negative: Yes All other systems reviewed and negative - REPRODUCTIVE LMP: na Reproductive: DENIES: : - DERM Skin Color: Normal Past Medical History - General Information source: Patient - Social History Smoking Status: Never Smoker Frequency of alcohol use: None Drug Abuse: None Lives with: Family Family History: Reviewed & Not Pertinent, Arthritis, CAD, CVA, DM, Hyperlipidemia, Hypertension, Malignancy, Thyroid Disfunction Patient has suicidal ideation: No Patient has homicidal ideation: No - Past Medical History Cardiac Medical History: Reports: Hx Hypertension Denies: Hx Congestive Heart Failure, Hx Heart Attack Pulmonary Medical History: Reports: Hx Asthma, Hx Pneumonia - 2017 Denies: Hx Bronchitis, Hx COPD, Hx Tuberculosis Neurological Medical History: Denies: Hx Cerebrovascular Accident, Hx Seizures Renal/ Medical History: Denies: Hx Peritoneal Dialysis GI Medical History: Reports: Hx Gastroesophageal Reflux Disease, Hx Irritable Bowel, Hx Ulcer Musculoskeltal Medical History: Reports Hx Arthritis - rheumatoid, DDD, Reports Hx Musculoskeletal Deformity, Reports Hx Musculoskeletal Trauma Psychiatric Medical History: Reports: Hx Anxiety, Hx Depression Past Surgical History: Reports: Hx Abdominal Surgery - small intestine removal, Hx Appendectomy, Hx Bowel Surgery - small intestine, Hx Breast Surgery - biopsy , Hx Hysterectomy, Hx Neurologic Surgery - brain tumor removed, Hx Tonsillectomy. Denies: Hx Open Heart Surgery - Immunizations Immunizations up to date: Yes Hx Diphtheria, Pertussis, Tetanus Vaccination: Yes - 09/2010 Hx Pneumococcal Vaccination: 08/24/10 Vertical Provider Document - CONSTITUTIONAL Agree With Documented VS: Yes General Appearance: WD/WN, No Apparent Distress Notes: at the time of this exam, patient is calm, VSS - INFECTION CONTROL TRAVEL OUTSIDE OF THE [place] IN LAST 30 DAYS: No - HEENT HEENT: Atraumatic, Normal ENT Exam, PERRLA - NECK Neck: Normal Inspection, Supple - RESPIRATORY Respiratory: Breath Sounds Normal, No Respiratory Distress O2 Sat by Pulse Oximetry: 100 - CARDIOVASCULAR Cardiovascular: Regular Rate, Regular Rhythm - MUSCULOSKELETAL/EXTREMETIES Musculoskeletal/Extremeties: REGLA ESCOBEDO - NEURO Level of Consciousness: Awake, Alert, Appropriate - DERM Integumentary: Warm, Dry, No Rash Course - Re-evaluation Re-evalutation: 03/19/17 20:22 Vitals are normal limits. Pt is requesting a pepcid for her indigestion and a "vertigo pill" which she usually takes at this time, but doesnt have them in her purse. Pt's exam in benign. Vitals are normal. Pt reassured that I do not suspect an acute pulmonary embolus, ACS, pneumothorax, or any other acute left threatening pathology based on her history and exam. I do not believe any labs or imaging are indicated at this time. Patient will be discharged with return precautions and follow-up recommendations. - Vital Signs Vital signs: Temp Pulse Resp BP Pulse Ox 97.8 F 74 18 148/67 H 100 03/19/17 19:37 03/19/17 19:37 03/19/17 19:37 03/19/17 19:37 03/19/17 19:37 Discharge - Discharge Clinical Impression: Elevated blood pressure reading, Vertigo Condition: Stable Disposition: HOME, SELF-CARE Instructions: High Blood Pressure ([facility]), Vertigo ([facility]), Meclizine ([facility]) Additional Instructions: Your blood pressure and pulse here in the ER tonight were normal Continue your current medications as prescribed Follow up with your primary care for further evaluation if your symptoms persist
[2017-03-19] MEDS ORDERED: MECLIZINE HCL 25 MG TABLET PO ONE (20:24)
[2017-03-19 21:48] VITALS: BP 103/71
== END 2017-03-19 21:31 | disposition home or self-care (01) ==
LOC: ER 19:33
DX: R03.0 Elevated blood-pressure reading, without diagnosis of hypertension (principal); R42 Dizziness and giddiness; Z79.899 Other long term (current) drug therapy
CPT/HCPCS: 99283; A9270 ×2

== ENCOUNTER 2017-04-12 23:02 | Emergency (ER) | payer MEDICARE, MEDICAID ==
[2017-04-13] MEDS ORDERED: CYANOCOBALAMIN (VITAMIN B-12) INJ 1000 MCG/1 ML VIAL IM ONE (02:24)
--- NOTE | 2017-04-13 02:30 | ER Document Report ---
ED General - General Chief Complaint: Other Stated Complaint: ARM/LEG TINGLING Time Seen by Provider: 04/13/17 02:14 Notes: Patient is a 66-year-old female who presents with complaint of needing her cyanocobalamin shot. She brought her prescription bottle where she supposed to get IM injections twice a month. Her last injection was 26 days ago. Her doctor is out of town and therefore she has come here to get her injection. Patient is adamant that she is supposed to receive 2 injections of this medication however her prescription bottle says that she is only supposed received 1000 mcg twice a month which I think is appropriate. I informed her that we would give her one injection. She can follow-up with her doctor about having the other done. Her second complaint is that she feels that she ate too much salt that she has an IV and IV fluids. I informed her that IV fluids have salt in them and that that she wants to help flush assault her system she should drink water. She has no hypertension. She says her blood pressure is usually 135 but she is concerned because today it is 128. TRAVEL OUTSIDE OF THE [place] IN LAST 30 DAYS: No - Related Data Allergies/Adverse Reactions: Penicillins Allergy (Severe, Verified 04/12/17 23:29) Anaphylaxis Sulfa (Sulfonamide Antibiotics) Allergy (Intermediate, Verified 04/12/17 23:29) iching, nausea ciprofloxacin [From Cipro] Allergy (Mild, Verified 04/12/17 23:29) itching, nausea meperidine HCl [From Demerol] Allergy (Mild, Verified 04/12/17 23:29) heart palpitations Past Medical History - Social History Smoking Status: Unknown if Ever Smoked Frequency of alcohol use: None Drug Abuse: None Family History: Reviewed & Not Pertinent, Arthritis, CAD, CVA, DM, Hyperlipidemia, Hypertension, Malignancy, Thyroid Disfunction - Past Medical History Cardiac Medical History: Reports: Hx Hypertension Denies: Hx Congestive Heart Failure, Hx Heart Attack Pulmonary Medical History: Reports: Hx Asthma, Hx Pneumonia - 2017 Denies: Hx Bronchitis, Hx COPD, Hx Tuberculosis Neurological Medical History: Denies: Hx Cerebrovascular Accident, Hx Seizures Renal/ Medical History: Denies: Hx Peritoneal Dialysis GI Medical History: Reports: Hx Gastroesophageal Reflux Disease, Hx Irritable Bowel, Hx Ulcer Musculoskeltal Medical History: Reports Hx Arthritis - rheumatoid, DDD, Reports Hx Musculoskeletal Deformity, Reports Hx Musculoskeletal Trauma Psychiatric Medical History: Reports: Hx Anxiety, Hx Depression Past Surgical History: Reports: Hx Abdominal Surgery - small intestine removal, Hx Appendectomy, Hx Bowel Surgery - small intestine, Hx Breast Surgery - biopsy , Hx Hysterectomy, Hx Neurologic Surgery - brain tumor removed, Hx Tonsillectomy. Denies: Hx Open Heart Surgery - Immunizations Immunizations up to date: Yes Hx Diphtheria, Pertussis, Tetanus Vaccination: Yes - 09/2010 Hx Pneumococcal Vaccination: 08/24/10 Review of Systems - Review of Systems Notes: My Normal Review Basic REVIEW OF SYSTEMS: CONSTITUTIONAL : Denies fever, chills, or sweats. Denies recent illness. EENT: Denies eye, ear, throat, or mouth pain or symptoms. Denies nasal or sinus congestion. CARDIOVASCULAR: Denies chest pain. RESPIRATORY: Denies cough, cold, or chest congestion. Denies shortness of breath, difficulty breathing, or wheezing. GASTROINTESTINAL: Denies abdominal pain. Denies nausea, vomiting, or diarrhea. Denies constipation. Last BM: MUSCULOSKELETAL: Some muscle aches which the patient says she typically has when she is due for her cyanocobalamin shots. SKIN: Denies rash or skin lesions. NEUROLOGICAL: Denies altered mental status or loss of consciousness. Denies weakness or paralysis or loss of use of either side. Denies problems with gait or speech. Denies sensory or motor loss. ALL OTHER SYSTEMS REVIEWED AND NEGATIVE. Physical Exam - Vital signs Vitals: Temp Pulse Resp BP Pulse Ox 98.3 F 72 16 128/70 H 100 04/12/17 23:29 04/12/17 23:29 04/12/17 23:29 04/12/17 23:29 04/12/17 23:29 - Notes Notes: General Appearance: Well nourished, alert, cooperative, no acute distress, no obvious discomfort. Vitals: reviewed, See vital signs table. Head: no swelling or tenderness to the head Eyes: PERRL, EOMI, Conjuctiva clear Mouth: No decreasd moisture Lungs: No wheezing, No rales, No rhonci, No accessory muscle use, good air exchange bilaterally. Heart: Normal rate, Regular rythm, No murmur, no rub Abdomen: Normal BS, soft, No rigidity, No abdominal tenderness, No guarding, no rebound, no abdominal masses, no organomegaly Extremities: strength 5/5 in all extremities, good pulses in all extremities, no swelling or tenderness in the extremities, no edema. Skin: warm, dry, appropriate color, no rash Neuro: speech clear, oriented x 3, normal affect, responds appropriately to questions. Course - Re-evaluation Re-evalutation: 04/13/17 02:29 Patient is adamant that I give her to use 1000 shots of the cyanocobalamin. Her prescription bottle clearly says that she is only supposed to receive one twice a month. I informed her that I will give her 1 shot as she is due for it. I told her to discuss receiving a second shot when her doctor returns back in town. As far as her eating too much salt, she has no hypertension, no edema on exam, and looks well. I do not think she needs IV fluids. I encouraged her to drink water. I encourage her to avoid salt if it makes her feel unwell. Patient will be discharged home. She is encouraged to return to ER if she is worsening or symptoms. - Vital Signs Vital signs: Temp Pulse Resp BP Pulse Ox 98.3 F 72 16 128/70 H 100 04/12/17 23:29 04/12/17 23:29 04/12/17 23:29 04/12/17 23:29 04/12/17 23:29 Discharge - Discharge Clinical Impression: No problem, feared complaint unfounded Condition: Good Additional Instructions: We have given you a 1000 unit shot of your cyanocobalamin. Please follow-up with Dr. Batres when he gets back in [facility] about receiving a second shot. Return to ER if you have edema, difficulty breathing, or feel unwell. Dictation of this chart was performed using voice recognition software; therefore, there may be some unintended grammatical errors.
[2017-04-13 02:57] VITALS: BP 151/76
== END 2017-04-13 02:57 | disposition home or self-care (01) ==
LOC: ER 23:02
DX: Z03.89 Encounter for observation for other suspected diseases and conditions ruled out (principal); J45.909 Unspecified asthma, uncomplicated; Z88.1 Allergy status to other antibiotic agents; Z88.5 Allergy status to narcotic agent; Z87.892 Personal history of anaphylaxis; Z88.0 Allergy status to penicillin; Z88.2 Allergy status to sulfonamides
CPT/HCPCS: 99281; 96372; J3420

== ENCOUNTER 2017-04-13 13:48 | Emergency (ER) | payer MEDICARE, MEDICAID ==
[2017-04-13 14:55] VITALS: BP 141/71
--- NOTE | 2017-04-13 15:17 | ER Document Report ---
ED Medical Screen (RME) - General Chief Complaint: Other Stated Complaint: IV FLUIDS Time Seen by Provider: 04/13/17 14:57 Notes: Patient is sent from her primary care office for IV fluids. Patient states she ate at [employer] yesterday and ingested too much salt and now she needs IV fluids. Patient denies any pain. TRAVEL OUTSIDE OF THE [place] IN LAST 30 DAYS: No COUNTRY TRAVELED TO/FROM: [place] - Related Data Allergies/Adverse Reactions: Penicillins Allergy (Severe, Verified 04/13/17 14:43) Anaphylaxis Sulfa (Sulfonamide Antibiotics) Allergy (Intermediate, Verified 04/13/17 14:43) iching, nausea ciprofloxacin [From Cipro] Allergy (Mild, Verified 04/13/17 14:43) itching, nausea meperidine HCl [From Demerol] Allergy (Mild, Verified 04/13/17 14:43) heart palpitations Past Medical History - Social History Family history: Reviewed & Not Pertinent - Past Medical History Cardiac Medical History: Reports: Hx Hypertension Denies: Hx Congestive Heart Failure, Hx Heart Attack Pulmonary Medical History: Reports: Hx Asthma, Hx Pneumonia - 2016 Denies: Hx Bronchitis, Hx COPD, Hx Tuberculosis Neurological Medical History: Denies: Hx Cerebrovascular Accident, Hx Seizures Renal/ Medical History: Denies: Hx Peritoneal Dialysis GI Medical History: Reports: Hx Gastroesophageal Reflux Disease, Hx Irritable Bowel, Hx Ulcer Musculoskeltal Medical History: Reports Hx Arthritis - rheumatoid, DDD, Reports Hx Musculoskeletal Deformity, Reports Hx Musculoskeletal Trauma Psychiatric Medical History: Reports: Hx Anxiety, Hx Depression Past Surgical History: Reports: Hx Abdominal Surgery - small intestine removal, Hx Appendectomy, Hx Bowel Surgery - small intestine, Hx Breast Surgery - biopsy , Hx Hysterectomy, Hx Neurologic Surgery - brain tumor removed, Hx Tonsillectomy. Denies: Hx Open Heart Surgery - Immunizations Immunizations up to date: Yes Hx Diphtheria, Pertussis, Tetanus Vaccination: Yes - 09/2010 Physical Exam - Vital signs Vitals: Temp Pulse BP Pulse Ox 98.4 F 73 141/71 H 100 04/13/17 14:43 04/13/17 14:43 04/13/17 14:43 04/13/17 14:43 Course - Vital Signs Vital signs: Temp Pulse Resp BP Pulse Ox 98.4 F 73 141/71 H 100 04/13/17 14:43 04/13/17 14:43 04/13/17 14:43 04/13/17 14:43
[2017-04-13 15:46] LABS: ABSOLUTE BASOPHILS # (AUTO) 0.1 10^3/uL (0.0-0.2); ABSOLUTE EOSINOPHILS # (AUTO) 0.4 10^3/uL (0.0-0.6); ABSOLUTE LYMPHOCYTES (AUTO) 1.6 10^3/uL (0.5-4.7); ABSOLUTE MONOCYTES (AUTO) 0.5 10^3/uL (0.1-1.4); ABSOLUTE NEUT (AUTO) 4.9 10^3/uL (1.7-8.2); BASOPHILS % (AUTO) 1.2 % (0-2); EOSINOPHILS % (AUTO) 5.1 % (0-6); HEMATOCRIT 35.3 % (36.0-47.0); HEMOGLOBIN 11.9 g/dL (12.0-15.5); HGB HCT DIFFERENCE 0.4; LYMPHOCYTES % (AUTO) 21.2 % (13-45); MEAN CORPUSCULAR HEMOGLOBIN 30.1 pg (27.0-33.4); MEAN CORPUSCULAR HGB CONC 33.8 g/dL (32.0-36.0); MEAN CORPUSCULAR VOLUME 89 fl (80-97); MONOCYTES % (AUTO) 6.2 % (3-13); RED BLOOD COUNT 3.97 10^6/uL (3.72-5.28); RED CELL DISTRIBUTION WIDTH 17.3 % (11.5-14.0); SEGMENTED NEUTROPHILS % (AUTO) 66.3 % (42-78); WHITE BLOOD COUNT 7.3 10^3/uL (4.0-10.5)
[2017-04-13 16:12] LABS: ALANINE AMINOTRANSFERASE 24 U/L (9-52); ALBUMIN 4.6 g/dL (3.5-5.0); ALKALINE PHOSPHATASE 92 U/L (38-126); ANION GAP 13 (5-19); ASPARTATE AMINO TRANSFERASE 25 U/L (14-36); BILIRUBIN,DIRECT 0.4 mg/dL (0.0-0.4); BILIRUBIN,TOTAL 0.8 mg/dL (0.2-1.3); BLOOD UREA NITROGEN 5 mg/dL (7-20); CALCIUM 9.8 mg/dL (8.4-10.2); CARBON DIOXIDE 24 mmol/L (22-30); CHLORIDE 102 mmol/L (98-107); CREATININE RESULT 0.67 mg/dL (0.52-1.25); GLUCOSE 76 mg/dL (75-110); POTASSIUM 3.9 mmol/L (3.6-5.0); SODIUM 138.7 mmol/L (137-145); TOTAL PROTEIN 7.9 g/dL (6.3-8.2)
--- NOTE | 2017-04-13 16:43 | ER Document Report ---
ED General - General Chief Complaint: Other Stated Complaint: IV FLUIDS Time Seen by Provider: 04/13/17 14:57 Notes: Patient is sent from her primary care physician's office stating that she needs IV fluids. Please see previous visits as this is a request the patient has often. She states that she ate at [employer] yesterday and this caused her to have too much sodium in her body and that she needs IV fluids. Patient states drinking water will not be enough. Patient denies vomiting or diarrhea. She denies any pain. She states her symptoms will be better if she got IV fluids and then will be worse if she does not. There is no known radiation of the symptoms. They are constant. She states they are severe. TRAVEL OUTSIDE OF THE [place] IN LAST 30 DAYS: No COUNTRY TRAVELED TO/FROM: [place] - Related Data Allergies/Adverse Reactions: Penicillins Allergy (Severe, Verified 04/13/17 14:43) Anaphylaxis Sulfa (Sulfonamide Antibiotics) Allergy (Intermediate, Verified 04/13/17 14:43) iching, nausea ciprofloxacin [From Cipro] Allergy (Mild, Verified 04/13/17 14:43) itching, nausea meperidine HCl [From Demerol] Allergy (Mild, Verified 04/13/17 14:43) heart palpitations Past Medical History - General Information source: Patient - Social History Smoking Status: Never Smoker Frequency of alcohol use: None Drug Abuse: None Family History: Reviewed & Not Pertinent, Arthritis, CAD, CVA, DM, Hyperlipidemia, Hypertension, Malignancy, Thyroid Disfunction Patient has suicidal ideation: No Patient has homicidal ideation: No - Past Medical History Cardiac Medical History: Reports: Hx Hypertension Denies: Hx Congestive Heart Failure, Hx Heart Attack Pulmonary Medical History: Reports: Hx Asthma, Hx Pneumonia - 2017 Denies: Hx Bronchitis, Hx COPD, Hx Tuberculosis Neurological Medical History: Denies: Hx Cerebrovascular Accident, Hx Seizures Renal/ Medical History: Denies: Hx Peritoneal Dialysis GI Medical History: Reports: Hx Gastroesophageal Reflux Disease, Hx Irritable Bowel, Hx Ulcer Musculoskeltal Medical History: Reports Hx Arthritis - rheumatoid, DDD, Reports Hx Musculoskeletal Deformity, Reports Hx Musculoskeletal Trauma Psychiatric Medical History: Reports: Hx Anxiety, Hx Depression Past Surgical History: Reports: Hx Abdominal Surgery - small intestine removal, Hx Appendectomy, Hx Bowel Surgery - small intestine, Hx Breast Surgery - biopsy , Hx Hysterectomy, Hx Neurologic Surgery - brain tumor removed, Hx Tonsillectomy. Denies: Hx Open Heart Surgery - Immunizations Immunizations up to date: Yes Hx Diphtheria, Pertussis, Tetanus Vaccination: Yes - 09/2010 Hx Pneumococcal Vaccination: 08/24/10 Review of Systems - Review of Systems Constitutional: Malaise, Weakness Cardiovascular: denies: Chest pain, Palpitations Respiratory: denies: Cough, Short of breath Gastrointestinal: denies: Diarrhea, Vomiting -: Yes All other systems reviewed and negative Physical Exam - Vital signs Vitals: Temp Pulse BP Pulse Ox 98.4 F 73 141/71 H 100 04/13/17 14:43 04/13/17 14:43 04/13/17 14:43 04/13/17 14:43 Interpretation: Normal - General General appearance: Appears well, Alert - HEENT Head: Normocephalic, Atraumatic Eyes: Normal Pupils: PERRL - Respiratory Respiratory status: No respiratory distress Chest status: Nontender Breath sounds: Normal Chest palpation: Normal - Cardiovascular Rhythm: Regular Heart sounds: Normal auscultation Murmur: No - Abdominal Inspection: Normal Distension: No distension Bowel sounds: Normal Tenderness: Nontender Organomegaly: No organomegaly - Back Back: Normal, Nontender - Extremities General upper extremity: Normal inspection, Nontender, Normal color, Normal ROM , Normal temperature General lower extremity: Normal inspection, Nontender, Normal color, Normal ROM , Normal temperature, Normal weight bearing. No: Guille's sign - Neurological Neuro grossly intact: Yes Cognition: Normal Orientation: AAOx4 Ji Coma Scale Eye Opening: Spontaneous Means Coma Scale Verbal: Oriented Ji Coma Scale Motor: Obeys Commands Means Coma Scale Total: 15 Speech: Normal Motor strength normal: LUE, RUE, LLE, RLE Sensory: Normal - Psychological Associated symptoms: Normal affect, Normal mood - Skin Skin Temperature: Warm Skin Moisture: Dry Skin Color: Normal Course - Re-evaluation Re-evalutation: 04/13/17 16:39 Patient's laboratories are unremarkable. There is no evidence on laboratories of dehydration. Patient insists that she needs IV fluids at least one bag "for the love of God". I explained to her that there is no evidence that she currently needs IV fluids. Her laboratories are unremarkable as is her physical exam. I explained to her that the risks of infection, thrombophlebitis , clot, and destruction of peripheral veins were not worth the benefit of IV fluids. - Vital Signs Vital signs: Temp Pulse Resp BP Pulse Ox 98.4 F 73 141/71 H 100 04/13/17 14:43 04/13/17 14:43 04/13/17 14:43 04/13/17 14:43 - Laboratory Result Diagrams: 04/13/17 15:24 04/13/17 15:24 Laboratory results interpreted by me: 04/13/17 04/13/17 15:24 15:24 Hgb 11.9 L Hct 35.3 L RDW 17.3 H Plt Count 534 H BUN 5 L Discharge - Discharge Clinical Impression: Anxiety Condition: Stable Disposition: HOME, SELF-CARE Instructions: Anxiety ([facility]) Additional Instructions: Please call your primary care provider as soon as possible to arrange for a recheck. Referrals: ARACELI CORTEZ MD [ACTIVE STAFF] - Follow up tomorrow
[2017-04-13 17:23] LABS: APPEARANCE,URINE SLIGHTLY-CLOUDY; BILIRUBIN,URINE NEGATIVE (NEGATIVE); GLUCOSE, URINE NEGATIVE (NEGATIVE); KETONES,URINE TRACE mg/dL (NEGATIVE); LEUKOCYTE ESTERASE,URINE NEGATIVE (NEGATIVE); NITRITE,URINE NEGATIVE (NEGATIVE); PROTEIN,URINE NEGATIVE (NEGATIVE); URINE SPECIFIC GRAVITY 1.004; UROBILINOGEN,URINE NEGATIVE mg/dL (<2.0)
== END 2017-04-13 16:46 | disposition home or self-care (01) ==
LOC: ER 13:48
DX: F41.9 Anxiety disorder, unspecified (principal); R53.81 Other malaise; R53.1 Weakness; I10 Essential (primary) hypertension; J45.909 Unspecified asthma, uncomplicated; Z88.2 Allergy status to sulfonamides; Z88.1 Allergy status to other antibiotic agents; Z88.5 Allergy status to narcotic agent; Z87.892 Personal history of anaphylaxis; Z88.0 Allergy status to penicillin
CPT/HCPCS: 36415; 80053; 81001; 85025; 99283

== ENCOUNTER 2017-04-14 13:54 | Observation (INO) | payer MEDICARE, MEDICAID ==
[2017-04-14] MEDS ORDERED: NORMAL SALINE 1000 ML 1,000 ML IV PRN (14:47)
[2017-04-14 16:28] LABS: HEMATOCRIT 33.3 % (36.0-47.0); HEMOGLOBIN 11.4 g/dL (12.0-15.5); HGB HCT DIFFERENCE 0.9; MEAN CORPUSCULAR HEMOGLOBIN 30.5 pg (27.0-33.4); MEAN CORPUSCULAR HGB CONC 34.1 g/dL (32.0-36.0); MEAN CORPUSCULAR VOLUME 90 fl (80-97); RED BLOOD COUNT 3.72 10^6/uL (3.72-5.28); RED CELL DISTRIBUTION WIDTH 17.1 % (11.5-14.0); WHITE BLOOD COUNT 8.8 10^3/uL (4.0-10.5)
[2017-04-14 16:50] LABS: ALANINE AMINOTRANSFERASE 23 U/L (9-52); ALBUMIN 3.8 g/dL (3.5-5.0); ALKALINE PHOSPHATASE 74 U/L (38-126); ANION GAP 10 (5-19); ASPARTATE AMINO TRANSFERASE 24 U/L (14-36); BILIRUBIN,DIRECT 0.5 mg/dL (0.0-0.4); BILIRUBIN,TOTAL 0.7 mg/dL (0.2-1.3); BLOOD UREA NITROGEN 5 mg/dL (7-20); CALCIUM 9.3 mg/dL (8.4-10.2); CARBON DIOXIDE 22 mmol/L (22-30); CHLORIDE 106 mmol/L (98-107); CREATININE RESULT 0.64 mg/dL (0.52-1.25); GLUCOSE 70 mg/dL (75-110); POTASSIUM 4.1 mmol/L (3.6-5.0); SODIUM 138.3 mmol/L (137-145); TOTAL PROTEIN 6.7 g/dL (6.3-8.2)
[2017-04-14 17:06] LABS: APPEARANCE,URINE CLEAR; BILIRUBIN,URINE NEGATIVE (NEGATIVE); GLUCOSE, URINE NEGATIVE (NEGATIVE); KETONES,URINE NEGATIVE (NEGATIVE); LEUKOCYTE ESTERASE,URINE NEGATIVE (NEGATIVE); NITRITE,URINE NEGATIVE (NEGATIVE); PROTEIN,URINE NEGATIVE (NEGATIVE); URINE SPECIFIC GRAVITY 1.002; UROBILINOGEN,URINE NEGATIVE mg/dL (<2.0)
[2017-04-14] MEDS ORDERED: ALBUTEROL SULFATE HFA (90 MCG/PUFF) 8 GM MDI (1 MDI/ER DISP) IH PRN (21:05)
[2017-04-14] MEDS ORDERED: ALBUTEROL SULFATE HFA (90 MCG/PUFF) 200 PUFF/8.5 GM MDI IH PRN (21:18)
[2017-04-14] MEDS: HEPARIN SOD (PORCINE) 5,000 UNIT/ML 1 ML SYRINGE SUBCUT SCH (23:36)
[2017-04-14] MEDS: MECLIZINE HCL 25 MG TABLET PO SCH (23:37)
[2017-04-14] MEDS: ONDANSETRON 4 MG TAB.RAPDIS PO SCH (23:37)
[2017-04-14] MEDS: CYCLOBENZAPRINE HCL 10 MG TABLET PO SCH (23:37)
[2017-04-14] MEDS: ALPRAZOLAM 0.5 MG TABLET PO SCH (23:37)
[2017-04-15] MEDS: ACETAMINOPHEN WITH CODEINE #3 TABLET PO PRN ×3 (04:01→18:12)
[2017-04-15] MEDS: CYCLOBENZAPRINE HCL 10 MG TABLET PO SCH ×2 (06:46→13:18)
[2017-04-15] MEDS: ONDANSETRON 4 MG TAB.RAPDIS PO SCH ×2 (06:47→13:18)
[2017-04-15] MEDS: MECLIZINE HCL 25 MG TABLET PO SCH ×2 (06:47→13:18)
[2017-04-15] MEDS: HEPARIN SOD (PORCINE) 5,000 UNIT/ML 1 ML SYRINGE SUBCUT SCH ×2 (06:48→13:17)
[2017-04-15] MEDS ORDERED: ONDANSETRON 4 MG TAB.RAPDIS PO SCH (10:00)
[2017-04-15] MEDS ORDERED: ALPRAZOLAM 0.5 MG TABLET PO SCH (10:00)
[2017-04-15] MEDS ORDERED: CYCLOBENZAPRINE HCL 10 MG TABLET PO SCH (10:00)
[2017-04-15] MEDS ORDERED: SUCRALFATE SUSP 1 GM/10 ML UDCUP PO SCH (10:00)
[2017-04-15] MEDS: LANSOPRAZOLE 30 MG TAB.RAP.DR PO SCH (10:03)
[2017-04-15] MEDS: DILTIAZEM HCL 120 MG CAP.SR.24H PO SCH (10:04)
[2017-04-15] MEDS: ALPRAZOLAM 0.5 MG TABLET PO SCH (10:05)
[2017-04-15] MEDS: SUCRALFATE SUSP 1 GM/10 ML UDCUP PO SCH (15:18)
--- NOTE | 2017-04-15 20:48 | PDOC H&P ---
History of Present Illness Admission Date/PCP: 04/14/17 13:54 ARACELI CORTEZ MD History of Present Illness: MICHAEL CAMEJO is a 66 year old female, Patient came to the office for evaluation of dehydration, she stated that she has not been able to eat or drink because she has nausea, she also says she has diarrhea she is concerned that she is dehydrated, she was requesting to be admitted for IV fluid hydration. She came to the office the day before requesting that she needed IV fluid therapy because she has not been drinking and she wanted to be referred to the emergency room to receive IV fluid, she went to emergency room for IV fluid therapy but she was not treated with IV fluid she was advised to see me in the office. Patient like to be on the sick roll , the blood work that was done including hemogram, the electrolytes are came back normal clinically the oral mucosa is dry, there is loss of skin turgor She was brought in for observation and hydration for 24 hours. Past Medical History Pulmonary Medical History: Reports: Asthma, Pneumonia - 2017 Psychiatric Medical History: Reports: Depression Hematology: Reports: Anemia Past Surgical History Past Surgical History: Reports: Appendectomy, Hysterectomy, Tonsillectomy Social History Smoking Status: Former Smoker Frequency of Alcohol Use: None Hx Recreational Drug Use: No Drugs: None Hx Prescription Drug Abuse: No - Advance Directive Resuscitation Status: Full Code Family History Family History: Reviewed & Not Pertinent, Arthritis, CAD, CVA, DM, Hyperlipidemia, Hypertension, Malignancy, Thyroid Disfunction Parental Family History Reviewed: Yes Children Family History Reviewed: Yes Sibling(s) Family History Reviewed.: Yes Medication/Allergy Home Medications: Acetaminophen with Codeine [Acetaminophen-Cod #3 Tablet] 1 each PO Q6HP PRN Albuterol Sulfate [Ventolin Hfa] 2 puff IH Q4 PRN 04/14/17 Alprazolam [Xanax 0.5 mg Tablet] 0.5 mg PO BID 04/14/17 Cyanocobalamin (Vitamin B-12) [Vitamin B-12 Inj 1000 Mcg/1 ml Vial] 1,000 mcg IM [id number] 04/14/17 Cyclobenzaprine HCl [Flexeril 10 mg Tablet] 10 mg PO TID 04/14/17 Dexlansoprazole [Dexilant 60 mg Capsule] 60 mg PO DAILY 04/14/17 Diltiazem HCl [Cardizem Cd 120 mg Capsule] 1 cap.sr PO DAILY 04/14/17 Ibandronate Sodium [Boniva] 150 mg PO [id number] 04/14/17 Meclizine HCl [Antivert 25 mg Tablet] 25 mg PO TID 04/14/17 Ondansetron [Zofran Odt 4 mg Tablet] 4 mg PO TID 04/14/17 Sucralfate [Carafate Susp 1 Gm/10 Ml Udcup] 1 gm PO BID 04/14/17 Allergies/Adverse Reactions: Penicillins Allergy (Severe, Verified 04/13/17 14:43) Anaphylaxis Sulfa (Sulfonamide Antibiotics) Allergy (Intermediate, Verified 04/13/17 14:43) iching, nausea ciprofloxacin [From Cipro] Allergy (Mild, Verified 04/13/17 14:43) itching, nausea meperidine HCl [From Demerol] Allergy (Mild, Verified 04/13/17 14:43) heart palpitations Review of Systems Constitutional: ABSENT: chills, fever(s), headache(s), weight gain, weight loss Eyes: ABSENT: visual disturbances Ears: ABSENT: hearing changes Cardiovascular: ABSENT: chest pain, dyspnea on exertion, edema, orthropnea, palpitations Respiratory: ABSENT: cough, hemoptysis Gastrointestinal: PRESENT: diarrhea, nausea Genitourinary: ABSENT: dysuria, hematuria Musculoskeletal: ABSENT: joint swelling Integumentary: ABSENT: rash, wounds Neurological: ABSENT: abnormal gait, abnormal speech, confusion, dizziness, focal weakness, syncope Psychiatric: ABSENT: anxiety, depression, homidical ideation, suicidal ideation Endocrine: ABSENT: cold intolerance, heat intolerance, menstrual abnormalities, polydipsia, polyuria Hematologic/Lymphatic: ABSENT: easy bleeding, easy bruising, lymphadenopathy Physical Exam Vital Signs: Temp Pulse Resp BP Pulse Ox 97.9 F 72 18 106/59 L 100 04/15/17 16:21 04/15/17 16:21 04/15/17 16:21 04/15/17 16:21 04/15/17 16:21 Intake & Output 04/14/17 04/15/17 04/16/17 06:59 06:59 06:59 Intake Total 920 2590 Output Total 1999 3200 Balance -1080 -610 Weight 64.7 kg General appearance: PRESENT: no acute distress, well-developed, well-nourished Head exam: PRESENT: atraumatic, normocephalic Eye exam: PRESENT: PERRLA Ear exam: PRESENT: normal external ear exam Mouth exam: PRESENT: dry mucosa Neck exam: PRESENT: full ROM Respiratory exam: PRESENT: clear to auscultation franky Cardiovascular exam: PRESENT: RRR, +S1 Pulses: PRESENT: normal dorsalis pedis pul, +2 pedal pulses bilateral Vascular exam: PRESENT: normal capillary refill GI/Abdominal exam: PRESENT: normal bowel sounds, soft Rectal exam: PRESENT: deferred Neurological exam: PRESENT: alert, awake, oriented to person, oriented to place , oriented to time, oriented to situation, CN II-XII grossly intact Psychiatric exam: PRESENT: appropriate affect, normal mood Skin exam: PRESENT: dry, intact, warm Results Laboratory Results: 04/14/17 16:02 04/14/17 16:05 Assessment & Plan - Diagnosis (1) Dehydration Is this a current diagnosis for this admission?: Yes Plan: Patient is admitted for IV fluid therapy. (2) Diarrhea Qualifiers: Diarrhea type: unspecified type Qualified Code(s): R19.7 - Diarrhea, unspecified Is this a current diagnosis for this admission?: Yes
--- NOTE | 2017-04-15 20:51 | PDOC DISCHARGE SUMMARY ---
General - Admit/Disc Date/PCP Admission Date/Primary Care Provider: 04/14/17 13:54 ARACELI CORTEZ MD Discharge Date: 04/16/17 - Discharge Diagnosis (1) Dehydration Is this a current diagnosis for this admission?: Yes (2) Diarrhea Is this a current diagnosis for this admission?: Yes - Additional Information Resuscitation Status: Full Code Discharge Diet: As Tolerated Discharge Activity: Activity As Tolerated Home Medications: Acetaminophen with Codeine [Acetaminophen-Cod #3 Tablet] 1 each PO Q6HP PRN Albuterol Sulfate [Ventolin Hfa] 2 puff IH Q4 PRN 04/14/17 Alprazolam [Xanax 0.5 mg Tablet] 0.5 mg PO BID 04/14/17 Cyanocobalamin (Vitamin B-12) [Vitamin B-12 Inj 1000 Mcg/1 ml Vial] 1,000 mcg IM [id number] 04/14/17 Cyclobenzaprine HCl [Flexeril 10 mg Tablet] 10 mg PO TID 04/14/17 Dexlansoprazole [Dexilant 60 mg Capsule] 60 mg PO DAILY 04/14/17 Diltiazem HCl [Cardizem Cd 120 mg Capsule] 1 cap.sr PO DAILY 04/14/17 Ibandronate Sodium [Boniva] 150 mg PO [id number] 04/14/17 Meclizine HCl [Antivert 25 mg Tablet] 25 mg PO TID 04/14/17 Ondansetron [Zofran Odt 4 mg Tablet] 4 mg PO TID 04/14/17 Sucralfate [Carafate Susp 1 gm/10 ml Udcup] 1 gm PO BID 04/14/17 History of Present Illness History of Present Illness: MICHAEL CAMEJO is a 66 year old female, Patient came to the office for evaluation of dehydration, she stated that she has not been able to eat or drink because she has nausea, she also says she has diarrhea she is concerned that she is dehydrated, she was requesting to be admitted for IV fluid hydration. She came to the office the day before requesting that she needed IV fluid therapy because she has not been drinking and she wanted to be referred to the emergency room to receive IV fluid, she went to emergency room for IV fluid therapy but she was not treated with IV fluid she was advised to see me in the office. Patient like to be on the sick roll , the blood work that was done including hemogram, the electrolytes are came back normal clinically the oral mucosa is dry, there is loss of skin turgor She was brought in for observation and hydration for 24 hours. Hospital Course Hospital Course: Patient was admitted for hydration due to dehydration she was treated with IV fluid normal saline Physical Exam Vital Signs: Temp Pulse Resp BP Pulse Ox 97.9 F 72 18 106/59 L 100 04/15/17 16:21 04/15/17 16:21 04/15/17 16:21 04/15/17 16:21 04/15/17 16:21 Intake & Output 04/14/17 04/15/17 04/16/17 06:59 06:59 06:59 Intake Total 920 2590 Output Total 2000 3200 Balance -1080 -610 Weight 64.7 kg General appearance: PRESENT: no acute distress, well-developed, well-nourished Head exam: PRESENT: atraumatic, normocephalic Eye exam: PRESENT: conjunctiva pink, EOMI, PERRLA. ABSENT: scleral icterus Ear exam: PRESENT: normal external ear exam Mouth exam: PRESENT: moist, tongue midline Neck exam: PRESENT: full ROM. ABSENT: carotid bruit, JVD, lymphadenopathy, thyromegaly Cardiovascular exam: PRESENT: RRR, +S1, +S2 Pulses: PRESENT: normal dorsalis pedis pul, +2 pedal pulses bilateral Vascular exam: PRESENT: normal capillary refill GI/Abdominal exam: PRESENT: normal bowel sounds, soft Rectal exam: PRESENT: deferred Neurological exam: PRESENT: alert, awake, oriented to person, oriented to place , oriented to time, oriented to situation, CN II-XII grossly intact. ABSENT: motor sensory deficit Psychiatric exam: PRESENT: appropriate affect, normal mood Skin exam: PRESENT: dry, intact, warm Results Laboratory Results: 04/14/17 16:02 04/14/17 16:05
[2017-04-16] MEDS: HEPARIN SOD (PORCINE) 5,000 UNIT/ML 1 ML SYRINGE SUBCUT SCH ×3 (03:19→14:15)
[2017-04-16] MEDS: MECLIZINE HCL 25 MG TABLET PO SCH ×3 (03:19→14:14)
[2017-04-16] MEDS: CYCLOBENZAPRINE HCL 10 MG TABLET PO SCH ×3 (03:19→14:14)
[2017-04-16] MEDS: ALPRAZOLAM 0.5 MG TABLET PO SCH ×2 (03:19→09:53)
[2017-04-16] MEDS: ONDANSETRON 4 MG TAB.RAPDIS PO SCH ×3 (03:19→14:14)
[2017-04-16] MEDS: ACETAMINOPHEN WITH CODEINE #3 TABLET PO PRN (05:36)
[2017-04-16] MEDS: SUCRALFATE SUSP 1 GM/10 ML UDCUP PO SCH ×2 (08:37→16:32)
[2017-04-16] MEDS: DILTIAZEM HCL 120 MG CAP.SR.24H PO SCH (09:52)
[2017-04-16] MEDS: LANSOPRAZOLE 30 MG TAB.RAP.DR PO SCH (09:53)
[2017-04-16 12:19] VITALS: BP 105/74
[2017-04-27] MEDS ORDERED: CYANOCOBALAMIN (VITAMIN B-12) INJ 1000 MCG/1 ML VIAL IM SCH (10:00)
== END 2017-04-16 18:45 | disposition home or self-care (01) ==
LOC: 5 13:54
PROVIDERS: ADMIT Internal Medicine; ATTEND Internal Medicine
DX: E86.0 Dehydration (principal); R19.7 Diarrhea, unspecified; Z79.899 Other long term (current) drug therapy; R11.0 Nausea; J45.909 Unspecified asthma, uncomplicated; Z90.49 Acquired absence of other specified parts of digestive tract; Z90.710 Acquired absence of both cervix and uterus
CPT/HCPCS: 36415; 80048; 80076; 81001; 85027; 87086; G0378; G0379; J1644; J3490; J7030; S0119

== ENCOUNTER 2017-04-25 22:27 | Emergency (ER) | payer MEDICARE, MEDICAID ==
[2017-04-25 22:34] VITALS: BP 147/62
--- NOTE | 2017-04-25 23:19 | ER Document Report ---
ED General - General Chief Complaint: General Weakness Stated Complaint: WEAKNESS Time Seen by Provider: 04/25/17 23:00 Notes: Patient is a 66-year-old female that comes emergency department for chief complaint of having low energy, she states she ate some earlier and right afterwards her upper lip began to tingle, her throat felt sore, and she felt cold and her "blood vessels". She states currently the only symptom she has that she feels cold in her "blood vessels". She denies chest pain, shortness of breath, fever, nausea, vomiting, headache. She states that she got her prescription of vitamin B12 filled today and she wants us to give her the shot. TRAVEL OUTSIDE OF THE [place] IN LAST 30 DAYS: No COUNTRY TRAVELED TO/FROM: [place] - Related Data Allergies/Adverse Reactions: Penicillins Allergy (Severe, Verified 04/13/17 14:43) Anaphylaxis Sulfa (Sulfonamide Antibiotics) Allergy (Intermediate, Verified 04/13/17 14:43) iching, nausea ciprofloxacin [From Cipro] Allergy (Mild, Verified 04/13/17 14:43) itching, nausea meperidine HCl [From Demerol] Allergy (Mild, Verified 04/13/17 14:43) heart palpitations Past Medical History - General Information source: Patient - Social History Smoking Status: Never Smoker Frequency of alcohol use: None Drug Abuse: None Lives with: Alone Family History: Reviewed & Not Pertinent, Arthritis, CAD, CVA, DM, Hyperlipidemia, Hypertension, Malignancy, Thyroid Disfunction Patient has suicidal ideation: No Patient has homicidal ideation: No Pulmonary Medical History: Reports: Hx Asthma, Hx Pneumonia - 2017 Neurological Medical History: Denies: Hx Cerebrovascular Accident Renal/ Medical History: Denies: Hx Peritoneal Dialysis GI Medical History: Reports: Hx Crohn's Disease, Hx Diverticulitis, Hx Gastroesophageal Reflux Disease, Hx Hiatal Hernia, Hx Irritable Bowel, Hx Ulcer. Denies: Hx Hepatitis Musculoskeltal Medical History: Reports Hx Arthritis, Reports Hx Musculoskeletal Deformity, Reports Hx Musculoskeletal Trauma Psychiatric Medical History: Reports: Hx Anxiety, Hx Depression Infectious Medical History: Denies: Hx Hepatitis Past Surgical History: Reports: Hx Abdominal Surgery - small intestine removal, Hx Appendectomy, Hx Bowel Surgery - small intestine, Hx Breast Surgery - biopsy , Hx Hysterectomy, Hx Neurologic Surgery - brain tumor removed, Hx Tonsillectomy. Denies: Hx Mastectomy, Hx Open Heart Surgery, Hx Pacemaker - Immunizations Immunizations up to date: Yes Hx Diphtheria, Pertussis, Tetanus Vaccination: Yes - 09/2010 Hx Pneumococcal Vaccination: 08/24/10 Review of Systems - Review of Systems Constitutional: See HPI EENT: No symptoms reported Cardiovascular: No symptoms reported Respiratory: No symptoms reported Gastrointestinal: No symptoms reported Genitourinary: No symptoms reported Female Genitourinary: No symptoms reported Musculoskeletal: No symptoms reported Skin: No symptoms reported Hematologic/Lymphatic: No symptoms reported Neurological/Psychological: No symptoms reported Physical Exam - Vital signs Vitals: Temp Pulse Resp BP Pulse Ox 97.8 F 74 20 147/62 H 100 04/25/17 22:30 04/25/17 22:30 04/25/17 22:30 04/25/17 22:30 04/25/17 22:30 Interpretation: Normal - General General appearance: Appears well, Alert In distress: None - HEENT Head: Normocephalic, Atraumatic Eyes: Normal Pupils: PERRL - Respiratory Respiratory status: No respiratory distress Chest status: Nontender Breath sounds: Normal Chest palpation: Normal - Cardiovascular Rhythm: Regular. No: Tachycardia Heart sounds: Normal auscultation, S1 appreciated, S2 appreciated Murmur: No Normal capillary refill: Yes - Abdominal Inspection: Normal Distension: No distension Bowel sounds: Normal Tenderness: Nontender Organomegaly: No organomegaly - Back Back: Normal, Nontender - Extremities General upper extremity: Normal inspection, Nontender, Normal color, Normal ROM , Normal temperature General lower extremity: Normal inspection, Nontender, Normal color, Normal ROM , Normal temperature, Normal weight bearing. No: Guille's sign - Neurological Neuro grossly intact: Yes Cognition: Normal Orientation: AAOx4 Ji Coma Scale Eye Opening: Spontaneous Ji Coma Scale Verbal: Oriented [place] Coma Scale Motor: Obeys Commands [place] Coma Scale Total: 15 Speech: Normal Motor strength normal: LUE, RUE, LLE, RLE Sensory: Normal - Psychological Associated symptoms: Normal affect, Normal mood. No: Other - interrupts me frequently, tries to talk over me. poor listener. not responding to external stimuli. re-directable. - Skin Skin Temperature: Warm Skin Moisture: Dry Skin Color: Normal Course - Re-evaluation Re-evalutation: Patient has a prescription of vitamin B12 that is dated for today when she filled it, she admits she normally has primary caregiver for the shots but she wants it given to her today because her doctor was out of town today. I explained that this is followed and performed by her primary care and this was something her primary care could take care for her. CBC and chemistry are both unremarkable. Patient was given copies of these on request. Physical exam is completely unremarkable, patient is very well appearing. No current complaints on my examination other than wanting her B12. Stable for discharge and primary care followup. - Vital Signs Vital signs: Temp Pulse Resp BP Pulse Ox 97.8 F 74 20 147/62 H 100 04/25/17 22:30 04/25/17 22:30 04/25/17 22:30 04/25/17 22:30 04/25/17 22:30 - Laboratory Result Diagrams: 04/25/17 23:38 04/25/17 23:38 Laboratory results interpreted by me: 04/25/17 04/25/17 23:38 23:38 Hct 34.7 L RDW 16.4 H Plt Count 501 H Eosinophils % 7.7 H BUN 4 L Discharge - Discharge Clinical Impression: Generalized weakness Condition: Stable Disposition: HOME, SELF-CARE Additional Instructions: Your exam and workup show no concerning abnormalities. Follow up with your Provider for additional management including B12 treatments. Return to the ED for any concerning symptoms - chest pain, shortness of breath, fever, vomiting, etc. Referrals: ARACELI CORTEZ MD [Primary Care Provider] - Follow up as needed
[2017-04-25 23:48] LABS: ABSOLUTE BASOPHILS # (AUTO) 0.1 10^3/uL (0.0-0.2); ABSOLUTE EOSINOPHILS # (AUTO) 0.6 10^3/uL (0.0-0.6); ABSOLUTE LYMPHOCYTES (AUTO) 1.9 10^3/uL (0.5-4.7); ABSOLUTE MONOCYTES (AUTO) 0.7 10^3/uL (0.1-1.4); ABSOLUTE NEUT (AUTO) 4.4 10^3/uL (1.7-8.2); BASOPHILS % (AUTO) 1.1 % (0-2); EOSINOPHILS % (AUTO) 7.7 % (0-6); HEMATOCRIT 34.7 % (36.0-47.0); HGB HCT DIFFERENCE 1.3; LYMPHOCYTES % (AUTO) 24.7 % (13-45); MEAN CORPUSCULAR HEMOGLOBIN 30.2 pg (27.0-33.4); MEAN CORPUSCULAR HGB CONC 34.5 g/dL (32.0-36.0); MEAN CORPUSCULAR VOLUME 88 fl (80-97); MONOCYTES % (AUTO) 8.8 % (3-13); RED BLOOD COUNT 3.96 10^6/uL (3.72-5.28); RED CELL DISTRIBUTION WIDTH 16.4 % (11.5-14.0); SEGMENTED NEUTROPHILS % (AUTO) 57.7 % (42-78); WHITE BLOOD COUNT 7.6 10^3/uL (4.0-10.5)
[2017-04-25 23:57] LABS: ANION GAP 11 (5-19); BLOOD UREA NITROGEN 4 mg/dL (7-20); CALCIUM 9.6 mg/dL (8.4-10.2); CARBON DIOXIDE 25 mmol/L (22-30); CHLORIDE 104 mmol/L (98-107); CREATININE RESULT 0.68 mg/dL (0.52-1.25); GLUCOSE 94 mg/dL (75-110); POTASSIUM 4.1 mmol/L (3.6-5.0)
== END 2017-04-26 00:17 | disposition home or self-care (01) ==
LOC: ER 22:27
DX: R53.1 Weakness (principal); J45.909 Unspecified asthma, uncomplicated; Z88.2 Allergy status to sulfonamides; Z88.1 Allergy status to other antibiotic agents; Z88.5 Allergy status to narcotic agent; Z87.892 Personal history of anaphylaxis; Z88.0 Allergy status to penicillin
CPT/HCPCS: 36415; 80048; 85025; 99284

== ENCOUNTER 2017-04-28 14:08 | Emergency (ER) | payer MEDICARE, MEDICAID ==
[2017-04-28] MEDS ORDERED: NORMAL SALINE 1000 ML 1,000 ML IV ONE (15:00)
[2017-04-28 15:29] LABS: ABSOLUTE BASOPHILS # (AUTO) 0.1 10^3/uL (0.0-0.2); ABSOLUTE EOSINOPHILS # (AUTO) 0.3 10^3/uL (0.0-0.6); ABSOLUTE LYMPHOCYTES (AUTO) 1.5 10^3/uL (0.5-4.7); ABSOLUTE MONOCYTES (AUTO) 0.4 10^3/uL (0.1-1.4); ABSOLUTE NEUT (AUTO) 4.6 10^3/uL (1.7-8.2); BASOPHILS % (AUTO) 0.9 % (0-2); EOSINOPHILS % (AUTO) 4.9 % (0-6); HEMATOCRIT 36.9 % (36.0-47.0); HGB HCT DIFFERENCE -0.9; LYMPHOCYTES % (AUTO) 22.2 % (13-45); MEAN CORPUSCULAR HEMOGLOBIN 29.4 pg (27.0-33.4); MEAN CORPUSCULAR HGB CONC 32.5 g/dL (32.0-36.0); MEAN CORPUSCULAR VOLUME 90 fl (80-97); MONOCYTES % (AUTO) 5.8 % (3-13); RED BLOOD COUNT 4.09 10^6/uL (3.72-5.28); RED CELL DISTRIBUTION WIDTH 16.5 % (11.5-14.0); SEGMENTED NEUTROPHILS % (AUTO) 66.2 % (42-78)
[2017-04-28 15:42] LABS: ANION GAP 14 (5-19); BLOOD UREA NITROGEN 4 mg/dL (7-20); CALCIUM 10.2 mg/dL (8.4-10.2); CARBON DIOXIDE 22 mmol/L (22-30); CHLORIDE 104 mmol/L (98-107); CREATININE RESULT 0.71 mg/dL (0.52-1.25); GLUCOSE 86 mg/dL (75-110); SODIUM 140.2 mmol/L (137-145)
[2017-04-28 16:02] VITALS: BP 155/67
--- NOTE | 2017-04-28 16:04 | ER Document Report ---
ED General - General Chief Complaint: Other Stated Complaint: ABNORMAL LABS Time Seen by Provider: 04/28/17 14:51 Mode of Arrival: Ambulatory Information source: Patient Notes: Patient presents and states that she has too much salt in her body. She states she ate a tomato and put a lot of salt on it because it tastes good. However she states now that she is pain for it and has too much salt in her body. She states she needs IV fluids for this. She states that she saw her primary care physician today who sent her to the emergency department for IV fluids. Patient states he feels lightheaded and dizzy at times and feels like she may pass out. Patient's symptoms are intermittent. She states they are severe. Nothing appears to make them better or worse. There is no known radiation of the symptoms. TRAVEL OUTSIDE OF THE [place] IN LAST 30 DAYS: No COUNTRY TRAVELED TO/FROM: [place] - Related Data Allergies/Adverse Reactions: Penicillins Allergy (Severe, Verified 04/28/17 13:57) Anaphylaxis Sulfa (Sulfonamide Antibiotics) Allergy (Intermediate, Verified 04/28/17 13:57) iching, nausea ciprofloxacin [From Cipro] Allergy (Mild, Verified 04/28/17 13:57) itching, nausea meperidine HCl [From Demerol] Allergy (Mild, Verified 04/28/17 13:57) heart palpitations Past Medical History - General Information source: Patient - Social History Smoking Status: Never Smoker Frequency of alcohol use: None Drug Abuse: None Family History: Reviewed & Not Pertinent, Arthritis, CAD, CVA, DM, Hyperlipidemia, Hypertension, Malignancy, Thyroid Disfunction Patient has suicidal ideation: No Patient has homicidal ideation: No Pulmonary Medical History: Reports: Hx Asthma, Hx Pneumonia - 2017 Neurological Medical History: Denies: Hx Cerebrovascular Accident Renal/ Medical History: Denies: Hx Peritoneal Dialysis GI Medical History: Reports: Hx Crohn's Disease, Hx Diverticulitis, Hx Gastroesophageal Reflux Disease, Hx Hiatal Hernia, Hx Irritable Bowel, Hx Ulcer. Denies: Hx Hepatitis Musculoskeltal Medical History: Reports Hx Arthritis, Reports Hx Musculoskeletal Deformity, Reports Hx Musculoskeletal Trauma Psychiatric Medical History: Reports: Hx Anxiety, Hx Depression Infectious Medical History: Denies: Hx Hepatitis Past Surgical History: Reports: Hx Abdominal Surgery - small intestine removal, Hx Appendectomy, Hx Bowel Surgery - small intestine, Hx Breast Surgery - biopsy , Hx Hysterectomy, Hx Neurologic Surgery - brain tumor removed, Hx Tonsillectomy. Denies: Hx Mastectomy, Hx Open Heart Surgery, Hx Pacemaker - Immunizations Immunizations up to date: Yes Hx Diphtheria, Pertussis, Tetanus Vaccination: Yes - 09/2010 Hx Pneumococcal Vaccination: 08/24/10 Review of Systems - Review of Systems Constitutional: Malaise, Weakness Cardiovascular: denies: Chest pain, Palpitations Respiratory: denies: Cough, Short of breath Neurological/Psychological: Weakness, Numbness -: Yes All other systems reviewed and negative Physical Exam - Vital signs Vitals: Temp Pulse Resp BP Pulse Ox 97.8 F 67 20 100/68 100 04/28/17 14:00 04/28/17 14:00 04/28/17 14:04/28/17 14:00 04/28/17 14:00 Interpretation: Normal - General General appearance: Appears well, Alert - HEENT Head: Normocephalic, Atraumatic Eyes: Normal Pupils: PERRL - Respiratory Respiratory status: No respiratory distress Chest status: Nontender Breath sounds: Normal Chest palpation: Normal - Cardiovascular Rhythm: Regular Heart sounds: Normal auscultation Murmur: No - Abdominal Inspection: Normal Distension: No distension Bowel sounds: Normal Tenderness: Nontender Organomegaly: No organomegaly - Back Back: Normal, Nontender - Extremities General upper extremity: Normal inspection, Nontender, Normal color, Normal ROM , Normal temperature General lower extremity: Normal inspection, Nontender, Normal color, Normal ROM , Normal temperature, Normal weight bearing. No: Guille's sign - Neurological Neuro grossly intact: Yes Cognition: Normal Orientation: AAOx4 Romance Coma Scale Eye Opening: Spontaneous Ji Coma Scale Verbal: Oriented Ji Coma Scale Motor: Obeys Commands Romance Coma Scale Total: 15 Speech: Normal Motor strength normal: LUE, RUE, LLE, RLE Sensory: Normal - Psychological Associated symptoms: Normal affect, Normal mood - Skin Skin Temperature: Warm Skin Moisture: Dry Skin Color: Normal Course - Re-evaluation Re-evalutation: 04/28/17 16:02 Patient was offered water to drink but refused. - Vital Signs Vital signs: Temp Pulse Resp BP Pulse Ox 97.8 F 67 20 100/68 100 04/28/17 14:00 04/28/17 14:00 04/28/17 14:00 04/28/17 14:00 04/28/17 14:00 - Laboratory Result Diagrams: 04/28/17 15:10 04/28/17 15:10 Laboratory results interpreted by me: 04/28/17 04/28/17 15:10 15:10 RDW 16.5 H Plt Count 504 H BUN 4 L Discharge - Discharge Clinical Impression: Anxiety Condition: Stable Disposition: HOME, SELF-CARE Instructions: Anxiety ([facility]) Additional Instructions: Follow-up with your primary care doctor as needed Referrals: ARACELI CORTEZ MD [Primary Care Provider] - Follow up as needed
== END 2017-04-28 16:05 | disposition home or self-care (01) ==
LOC: ER 14:08 → II 14:08 → EDSTATUS 14:31 → ER 16:05
DX: F41.9 Anxiety disorder, unspecified (principal); R42 Dizziness and giddiness
CPT/HCPCS: 36415; 80048; 85025; 99283

== ENCOUNTER 2017-05-04 22:02 | Emergency (ER) | payer MEDICARE, MEDICAID ==
[2017-05-05] MEDS ORDERED: KETOROLAC TROMETHAMINE 60 MG/2 ML SDV IM ONE (00:07)
--- NOTE | 2017-05-05 00:19 | ER Document Report ---
ED Neck/Back Problem - General Chief Complaint: Back Pain Stated Complaint: BACK PAIN Time Seen by Provider: 05/04/17 23:51 Mode of Arrival: Ambulatory Information source: Patient Notes: Patient is a 66-year-old female very well-known to this emergency department who presents to the ER today for her chronic back pain. Patient requests a shot of Toradol as she states that that always makes her feel better. She states that it has been hurting her over the past couple of days. She denies any numbness, tingling, loss of bladder or bowel function, new type of back pain or injury. Patient also states that her urine is a "white color" because she has "too much salt in my body." She states that when she was admitted by Dr. Batres, that he gave her too much salt and that she "cannot get it out of my body." She states that she is drinking a lot of water at home but that it is not working. TRAVEL OUTSIDE OF THE [place] IN LAST 30 DAYS: No COUNTRY TRAVELED TO/FROM: [place] - Related Data Allergies/Adverse Reactions: Penicillins Allergy (Severe, Verified 04/28/17 13:57) Anaphylaxis Sulfa (Sulfonamide Antibiotics) Allergy (Intermediate, Verified 04/28/17 13:57) iching, nausea ciprofloxacin [From Cipro] Allergy (Mild, Verified 04/28/17 13:57) itching, nausea meperidine HCl [From Demerol] Allergy (Mild, Verified 04/28/17 13:57) heart palpitations Past Medical History - General Information source: Patient - Social History Smoking Status: Unknown if Ever Smoked Cigarette use (# per day): No Chew tobacco use (# tins/day): No Frequency of alcohol use: None Drug Abuse: None Family History: Reviewed & Not Pertinent, Arthritis, CAD, CVA, DM, Hyperlipidemia, Hypertension, Malignancy, Thyroid Disfunction Patient has suicidal ideation: No Patient has homicidal ideation: No Pulmonary Medical History: Reports: Hx Asthma, Hx Pneumonia - 2017 Neurological Medical History: Denies: Hx Cerebrovascular Accident Renal/ Medical History: Denies: Hx Peritoneal Dialysis GI Medical History: Reports: Hx Crohn's Disease, Hx Diverticulitis, Hx Gastroesophageal Reflux Disease, Hx Hiatal Hernia, Hx Irritable Bowel, Hx Ulcer. Denies: Hx Hepatitis Musculoskeltal Medical History: Reports Hx Arthritis, Reports Hx Musculoskeletal Deformity, Reports Hx Musculoskeletal Trauma Psychiatric Medical History: Reports: Hx Anxiety, Hx Depression Infectious Medical History: Denies: Hx Hepatitis Past Surgical History: Reports: Hx Abdominal Surgery - small intestine removal, Hx Appendectomy, Hx Bowel Surgery - small intestine, Hx Breast Surgery - biopsy , Hx Hysterectomy, Hx Neurologic Surgery - brain tumor removed, Hx Tonsillectomy. Denies: Hx Mastectomy, Hx Open Heart Surgery, Hx Pacemaker - Immunizations Immunizations up to date: Yes Hx Diphtheria, Pertussis, Tetanus Vaccination: Yes - 09/2010 Hx Pneumococcal Vaccination: 08/24/10 Review of Systems - Review of Systems Constitutional: No symptoms reported EENT: No symptoms reported Cardiovascular: No symptoms reported Respiratory: No symptoms reported Gastrointestinal: No symptoms reported Genitourinary: See HPI Female Genitourinary: No symptoms reported Musculoskeletal: See HPI Skin: No symptoms reported Hematologic/Lymphatic: No symptoms reported Neurological/Psychological: No symptoms reported Physical Exam - Vital signs Vitals: Temp Pulse Resp BP Pulse Ox 98.4 F 78 16 173/93 H 100 05/04/17 22:41 05/04/17 22:41 05/04/17 22:41 05/04/17 22:41 05/04/17 22:41 - Notes Notes: PHYSICAL EXAMINATION: GENERAL: Well-appearing and in no acute distress. HEAD: Atraumatic, normocephalic. EYES: Pupils equal round and reactive to light, extraocular movements intact, sclera anicteric, conjunctiva are normal. NECK: Normal range of motion, supple without lymphadenopathy LUNGS: CTAB and equal. No wheezes rales or rhonchi. HEART: Regular rate and rhythm without murmurs ABDOMEN: Soft, no tenderness. No guarding, no rebound BACK: no vertebral tenderness, normal ROM GI/: no CVA tenderness EXTREMITIES: Normal range of motion, no pitting edema. No cyanosis. NEUROLOGICAL: Cranial nerves grossly intact. Normal sensory/motor exams. PSYCH: Normal mood, normal affect. SKIN: Warm, Dry, normal turgor, no rashes or lesions noted Course - Re-evaluation Re-evalutation: 05/05/17 00:40 urinalysis is clear and hydrated. - Vital Signs Vital signs: Temp Pulse Resp BP Pulse Ox 98.4 F 73 16 173/93 H 100 05/04/17 22:45 05/04/17 22:45 05/04/17 22:45 05/04/17 22:45 05/04/17 22:45 Discharge - Discharge Clinical Impression: Back pain Qualifiers: Back pain location: low back pain Chronicity: chronic Back pain laterality: midline Sciatica presence: without sciatica Qualified Code(s): M54.5 - Low back pain; G89.29 - Other chronic pain Condition: Stable Disposition: HOME, SELF-CARE Additional Instructions: Return immediately for any new or worsening symptoms. Follow up with primary care provider, call tomorrow to make followup appointment.
[2017-05-05 00:34] LABS: APPEARANCE,URINE CLEAR; BILIRUBIN,URINE NEGATIVE (NEGATIVE); GLUCOSE, URINE NEGATIVE (NEGATIVE); KETONES,URINE NEGATIVE (NEGATIVE); LEUKOCYTE ESTERASE,URINE NEGATIVE (NEGATIVE); NITRITE,URINE NEGATIVE (NEGATIVE); PROTEIN,URINE NEGATIVE (NEGATIVE); URINE SPECIFIC GRAVITY 1.002; UROBILINOGEN,URINE NEGATIVE mg/dL (<2.0)
[2017-05-05 01:04] VITALS: BP 156/69
== END 2017-05-05 00:30 | disposition home or self-care (01) ==
LOC: ER 22:02
DX: M54.5 Low back pain (principal); M54.9 Dorsalgia, unspecified; G89.29 Other chronic pain
CPT/HCPCS: 99283; 96372; 81001; J1885

== ENCOUNTER 2017-05-08 19:25 | Emergency (ER) | payer MEDICARE, MEDICAID ==
[2017-05-08 19:53] VITALS: BP 135/70
--- NOTE | 2017-05-08 20:34 | ER Document Report ---
ED General <MIKE GRIGGS - Last Filed: 05/08/17 20:35> - General Mode of Arrival: Ambulatory Information source: Patient TRAVEL OUTSIDE OF THE [place] IN LAST 30 DAYS: No COUNTRY TRAVELED TO/FROM: [place] - HPI Similar symptoms previously: Yes Recently seen / treated by doctor: Yes <KENNDARIEN - Last Filed: 05/08/17 21:00> - General Chief Complaint: Arrhythmia Stated Complaint: RAPID HEART BEAT Time Seen by Provider: 05/08/17 20:17 Notes: This 66-year-old female patient with significant anxiety disorders and hypochondriasis comes emergency room by EMS telling the paramedics she was dizzy with throbbing in her legs and headache. When I entered the room the first thing she did was stated "see my tongue" struck it out and claimed it is dry. Then she stated "see the veins here that come up in my legs, I have to take heart medicine". She goes on to state "when it hurts any, it is like freezing in my blood vessels". She goes on to stating she needs her B12 shot and essentially an endless litany of complaints if she is allowed to continue talking. States she had a heart arrhythmia yesterday, her EKG is completely normal today. She has a long extensive history of abusing the emergency room for visits like this 1 today. (MIKE GRIGGS) - Related Data Allergies/Adverse Reactions: Penicillins Allergy (Severe, Verified 04/28/17 13:57) Anaphylaxis Sulfa (Sulfonamide Antibiotics) Allergy (Intermediate, Verified 04/28/17 13:57) iching, nausea ciprofloxacin [From Cipro] Allergy (Mild, Verified 04/28/17 13:57) itching, nausea meperidine HCl [From Demerol] Allergy (Mild, Verified 04/28/17 13:57) heart palpitations Past Medical History - General Information source: Patient - Social History Smoking Status: Never Smoker Cigarette use (# per day): No Chew tobacco use (# tins/day): No Smoking Education Provided: No Frequency of alcohol use: None Drug Abuse: None Family History: Reviewed & Not Pertinent, Arthritis, CAD, CVA, DM, Hyperlipidemia, Hypertension, Malignancy, Thyroid Disfunction Patient has suicidal ideation: No Patient has homicidal ideation: No Pulmonary Medical History: Reports: Hx Asthma, Hx Pneumonia - 2017 GI Medical History: Reports: Hx Crohn's Disease, Hx Diverticulitis, Hx Gastroesophageal Reflux Disease, Hx Hiatal Hernia, Hx Irritable Bowel, Hx Ulcer Musculoskeltal Medical History: Reports Hx Arthritis, Reports Hx Musculoskeletal Deformity, Reports Hx Musculoskeletal Trauma Psychiatric Medical History: Reports: Hx Anxiety, Hx Depression Past Surgical History: Reports: Hx Abdominal Surgery - small intestine removal, Hx Appendectomy, Hx Bowel Surgery - small intestine, Hx Breast Surgery - biopsy , Hx Hysterectomy, Hx Neurologic Surgery - brain tumor removed, Hx Tonsillectomy - Immunizations Immunizations up to date: Yes Hx Diphtheria, Pertussis, Tetanus Vaccination: Yes - 09/2010 Hx Pneumococcal Vaccination: 08/24/10 <DARIEN HAWK - Last Filed: 05/08/17 21:00> Review of Systems - Review of Systems Constitutional: No symptoms reported EENT: No symptoms reported Cardiovascular: See HPI Respiratory: No symptoms reported Gastrointestinal: No symptoms reported Genitourinary: No symptoms reported Female Genitourinary: No symptoms reported Musculoskeletal: No symptoms reported Skin: See HPI Hematologic/Lymphatic: No symptoms reported Neurological/Psychological: See HPI -: Yes All other systems reviewed and negative <DARIEN HAWK - Last Filed: 05/08/17 21:00> Physical Exam <MIKE GRIGGS - Last Filed: 05/08/17 20:35> - Vital signs Interpretation: Normal <DARIEN HAWK - Last Filed: 05/08/17 21:00> - Vital signs Vitals: Temp Resp BP Pulse Ox 98.2 F 16 135/70 H 100 05/08/17 19:41 05/08/17 19:41 05/08/17 19:41 05/08/17 19:41 - Notes Notes: GENERAL: Alert, interacts well. No acute distress. HEAD: Normocephalic, atraumatic. EYES: Appear normal. Pupils equal, round, and reactive to light. ENT: Moist mucus membranes, tongue midline. NECK: Full range of motion. Supple. Trachea midline. LUNGS: Clear to auscultation bilaterally, no wheezes, rales, or rhonchi. No respiratory distress. HEART: Regular rate and rhythm. No murmurs, gallops, or rubs. ABDOMEN: Soft, non-tender. Non-distended. Normal bowel sounds. EXTREMITIES: Moves all 4 extremities spontaneously. Normal strength. No edema. NEUROLOGICAL: Alert and oriented x3. Normal speech. No focal neurological deficits. GCS 15. PSYCH: Normal affect, normal mood. SKIN: Warm, dry, normal turgor. No rashes or lesions noted. (DARIEN HAWK) Course - EKG Interpretation by Me EKG shows normal: Sinus rhythm, [place], Intervals, QRS Complexes, ST-T Waves Rate: Normal - 74 Rhythm: NSR <MIKE GRIGGS - Last Filed: 05/08/17 20:35> - Vital Signs Vital signs: Temp Pulse Resp BP Pulse Ox 98.2 F 16 135/70 H 100 05/08/17 19:41 05/08/17 19:41 05/08/17 19:41 05/08/17 19:41 Discharge <MIKE GRIGGS - Last Filed: 05/08/17 20:35> <DARIEN HAWK - Last Filed: 05/08/17 21:00> - Discharge Clinical Impression: Anxiety about health Condition: Stable Disposition: HOME, SELF-CARE Additional Instructions: You should drink more water if you feel dehydrated. You should see your doctor tomorrow for B12 shot if you think you need one. Follow up with your doctor tomorrow to review all your health concerns. Referrals: ARACELI CORTEZ MD [Primary Care Provider] - Follow up as needed Scribe Attestation: 05/08/17 20:39 I personally performed the services described in the documentation, reviewed and edited the documentation which was dictated to the scribe in my presence, and it accurately records my words and actions. (MIKE GRIGGS) Scribe Documentation - Scribe Written by Scribe:: Derik Sandhu 05/08/2017 21:00 acting as scribe for :: Daria <DARIEN HAWK - Last Filed: 05/08/17 21:00>
--- NOTE | 2017-05-09 07:14 | EKG REPORT ---
SEVERITY:- NORMAL ECG - SINUS RHYTHM : Confirmed by: Bryant Peña MD 09-May-2017 07:13:43
== END 2017-05-08 20:53 | disposition home or self-care (01) ==
LOC: ER 19:25
DX: F41.9 Anxiety disorder, unspecified (principal); R00.2 Palpitations; R42 Dizziness and giddiness
CPT/HCPCS: 93005; 93010; 99284

== ENCOUNTER 2017-05-11 20:06 | Emergency (ER) | payer MEDICARE, MEDICAID ==
--- NOTE | 2017-05-11 22:40 | ER Document Report ---
ED General - General Chief Complaint: High Blood Pressure Stated Complaint: BLOOD PRESSURE PROBLEMS Time Seen by Provider: 05/11/17 22:02 Notes: Patient is a 58-year-old female who is well-known to her ER. She presents with complaint of hypertension. She says she feels a little bit dizzy earlier today. She was at the pharmacy and had a blood pressure check. Was elevated. She met the man at the pharmacy who was taking lisinopril. He told her that there is a good medication and that it would probably help her. She therefore is come to the ER. Her blood pressure is now improving. She denies a headache. She says the pain that she does have is over her right TMJ and she says that this pain is chronic. She has seen an outreach analyst about this and they want to give her a splint that she will wear to help with it. Patient says she does not want to pay the money for the splint and therefore is just dealing with the pain of the TMJ. She denies having any chest pain or shortness of breath. She denies any focal weakness or numbness. She currently denies any further dizziness or headache and has no other complaints at this time. TRAVEL OUTSIDE OF THE [place] IN LAST 30 DAYS: No - Related Data Allergies/Adverse Reactions: Penicillins Allergy (Severe, Verified 04/28/17 13:57) Anaphylaxis Sulfa (Sulfonamide Antibiotics) Allergy (Intermediate, Verified 04/28/17 13:57) iching, nausea ciprofloxacin [From Cipro] Allergy (Mild, Verified 04/28/17 13:57) itching, nausea meperidine HCl [From Demerol] Allergy (Mild, Verified 04/28/17 13:57) heart palpitations Past Medical History - Social History Smoking Status: Unknown if Ever Smoked Frequency of alcohol use: None Drug Abuse: None Family History: Reviewed & Not Pertinent, Arthritis, CAD, CVA, DM, Hyperlipidemia, Hypertension, Malignancy, Thyroid Disfunction Patient has suicidal ideation: No Patient has homicidal ideation: No Pulmonary Medical History: Reports: Hx Asthma, Hx Pneumonia - 2017 Neurological Medical History: Denies: Hx Cerebrovascular Accident Renal/ Medical History: Denies: Hx Peritoneal Dialysis GI Medical History: Reports: Hx Crohn's Disease, Hx Diverticulitis, Hx Gastroesophageal Reflux Disease, Hx Hiatal Hernia, Hx Irritable Bowel, Hx Ulcer. Denies: Hx Hepatitis Musculoskeltal Medical History: Reports Hx Arthritis, Reports Hx Musculoskeletal Deformity, Reports Hx Musculoskeletal Trauma Psychiatric Medical History: Reports: Hx Anxiety, Hx Depression Infectious Medical History: Denies: Hx Hepatitis Past Surgical History: Reports: Hx Abdominal Surgery - small intestine removal, Hx Appendectomy, Hx Bowel Surgery - small intestine, Hx Breast Surgery - biopsy , Hx Hysterectomy, Hx Neurologic Surgery - brain tumor removed, Hx Tonsillectomy. Denies: Hx Mastectomy, Hx Open Heart Surgery, Hx Pacemaker - Immunizations Immunizations up to date: Yes Hx Diphtheria, Pertussis, Tetanus Vaccination: Yes - 09/2010 Hx Pneumococcal Vaccination: 08/24/10 Review of Systems - Review of Systems Notes: My Normal Review Basic REVIEW OF SYSTEMS: CONSTITUTIONAL : Denies fever, chills, or sweats. Denies recent illness. EENT: Denies eye, ear, throat, or mouth pain or symptoms. Denies nasal or sinus congestion. CARDIOVASCULAR: Denies chest pain. RESPIRATORY: Denies cough, cold, or chest congestion. Denies shortness of breath, difficulty breathing, or wheezing. GASTROINTESTINAL: Denies abdominal pain. Denies nausea, vomiting, or diarrhea. Denies constipation. Last BM: MUSCULOSKELETAL: Denies neck or back pain or joint pain or swelling. SKIN: Denies rash or skin lesions. NEUROLOGICAL: Denies altered mental status or loss of consciousness. Denies headache. Denies weakness or paralysis or loss of use of either side. Denies problems with gait or speech. Denies sensory or motor loss. ALL OTHER SYSTEMS REVIEWED AND NEGATIVE. Physical Exam - Vital signs Vitals: Temp Pulse Resp BP Pulse Ox 98.4 F 81 20 148/67 H 100 05/11/17 20:27 05/11/17 20:27 05/11/17 20:27 05/11/17 20:27 05/11/17 20:27 - Notes Notes: General Appearance: Well nourished, alert, cooperative, no acute distress, no obvious discomfort. Vitals: reviewed, See vital signs table. Head: no swelling or tenderness to the head Eyes: PERRL, EOMI, Conjuctiva clear Mouth: No decreasd moisture Lungs: No wheezing, No rales, No rhonci, No accessory muscle use, good air exchange bilaterally. Heart: Normal rate, Regular rythm, No murmur, no rub Abdomen: Normal BS, soft, No rigidity, No abdominal tenderness, No guarding, no rebound, no abdominal masses, no organomegaly Extremities: strength 5/5 in all extremities, good pulses in all extremities, no swelling or tenderness in the extremities, no edema. Skin: warm, dry, appropriate color, no rash Neuro: speech clear, oriented x 3, normal affect, responds appropriately to questions. Cranial nerves II through XII are intact. Distal sensation intact. Patient moves all extremities without difficulty. Course - Re-evaluation Re-evalutation: 05/12/17 07:19 Patient says that her blood pressure was in the 170s-190s systolic when she was checking it multiple times at the pharmacy. Here her blood pressure systolically is in the 140s. Patient says that today is the first day that she has had high blood pressure since 2014. Informed her that would not be a good idea to start her on a blood pressure medication with 1 day for high blood pressure. I informed her that emotions and stress affect blood pressure and therefore placing her on a blood pressure medication without knowing if she is chronically having elevated blood pressure could potentially be dangerous as it could drop her blood pressure quickly and make her pass out. Patient is understanding of this. I informed her that I want her to keep a log of her blood pressures for the next week. Encouraged her to check her blood pressure 3 times a day and write down the results and bring them to her appointment with her primary care doctor. At that time they can discuss whether not start blood pressure medication. I encouraged her return to ER immediately if she has chest pain, difficulty breathing, severe headache, or feels unwell. Patient agrees with plan and will be discharged home. Dictation of this chart was performed using voice recognition software; therefore, there may be some unintended grammatical errors. - Vital Signs Vital signs: Temp Pulse Resp BP Pulse Ox 98.2 F 65 18 126/98 H 100 05/11/17 22:50 05/11/17 22:50 05/11/17 22:50 05/11/17 22:50 05/11/17 22:50 Discharge - Discharge Clinical Impression: Hypertension Qualifiers: Hypertension type: unspecified Qualified Code(s): I10 - Essential (primary) hypertension Condition: Good Disposition: HOME, SELF-CARE Additional Instructions: Please keep a log of your blood pressures for 1 week. Please check your blood pressure three times a day. Write down your results and bring them to your doctor to determine if you need to be started on a blood pressure medication. return tot eh ER if you have chest pain, difficulty breathing, fevers, severe headache, or feel unwell.
[2017-05-11 23:01] VITALS: BP 126/98
== END 2017-05-11 22:50 | disposition home or self-care (01) ==
LOC: ER 20:06
DX: I10 Essential (primary) hypertension (principal)
CPT/HCPCS: 99283

== ENCOUNTER 2017-05-14 17:48 | Emergency (ER) | payer MEDICAID, MEDICARE ==
[2017-05-14 17:56] VITALS: BP 139/89
[2017-05-14] MEDS ORDERED: IBUPROFEN 600 MG TABLET PO ONE (18:20)
--- NOTE | 2017-05-14 18:22 | ER Document Report ---
ED ENT - General Chief Complaint: Blood Pressure Problem Stated Complaint: BLOOD PRESSURE CONCERN Time Seen by Provider: 05/14/17 18:12 Notes: Patient is a 4-year-old female who returns emergency department check but mainly for pain from her TMJ. She states it is worse on the right. States the pain is chronic and that she is followed with an pourer and that she states she supposed to have surgery since she cannot afford her splint. Otherwise she states that the pain is not any worse than normal. Denies any other headache, chest pain, shortness of breath. Patient states that she has been checking her blood pressure as instructed in keeping a log and going to follow-up with her primary care doctor. Otherwise denies any dizziness at this time. TRAVEL OUTSIDE OF THE [place] IN LAST 30 DAYS: No COUNTRY TRAVELED TO/FROM: [place] - Related Data Allergies/Adverse Reactions: Penicillins Allergy (Severe, Verified 05/14/17 17:54) Anaphylaxis Sulfa (Sulfonamide Antibiotics) Allergy (Intermediate, Verified 05/14/17 17:54) iching, nausea ciprofloxacin [From Cipro] Allergy (Mild, Verified 05/14/17 17:54) itching, nausea meperidine HCl [From Demerol] Allergy (Mild, Verified 05/14/17 17:54) heart palpitations Past Medical History - Social History Smoking Status: Unknown if Ever Smoked Chew tobacco use (# tins/day): No Frequency of alcohol use: None Drug Abuse: None Family History: Reviewed & Not Pertinent, Arthritis, CAD, CVA, DM, Hyperlipidemia, Hypertension, Malignancy, Thyroid Disfunction Pulmonary Medical History: Reports: Hx Asthma, Hx Pneumonia - 2017 Neurological Medical History: Denies: Hx Cerebrovascular Accident Renal/ Medical History: Denies: Hx Peritoneal Dialysis GI Medical History: Reports: Hx Crohn's Disease, Hx Diverticulitis, Hx Gastroesophageal Reflux Disease, Hx Hiatal Hernia, Hx Irritable Bowel, Hx Ulcer. Denies: Hx Hepatitis Musculoskeltal Medical History: Reports Hx Arthritis, Reports Hx Musculoskeletal Deformity, Reports Hx Musculoskeletal Trauma Psychiatric Medical History: Reports: Hx Anxiety, Hx Depression Infectious Medical History: Denies: Hx Hepatitis Past Surgical History: Reports: Hx Abdominal Surgery - small intestine removal, Hx Appendectomy, Hx Bowel Surgery - small intestine, Hx Breast Surgery - biopsy , Hx Hysterectomy, Hx Neurologic Surgery - brain tumor removed, Hx Tonsillectomy. Denies: Hx Mastectomy, Hx Open Heart Surgery, Hx Pacemaker - Immunizations Immunizations up to date: Yes Hx Diphtheria, Pertussis, Tetanus Vaccination: Yes - 09/2010 Hx Pneumococcal Vaccination: 08/24/10 Review of Systems - Review of Systems Constitutional: No symptoms reported EENT: See HPI Cardiovascular: No symptoms reported Respiratory: No symptoms reported Neurological/Psychological: No symptoms reported -: Yes All other systems reviewed and negative Physical Exam - Vital signs Vitals: Temp Pulse Resp BP Pulse Ox 98.0 F 91 18 139/89 H 99 05/14/17 17:54 05/14/17 17:54 05/14/17 17:54 05/14/17 17:54 05/14/17 17:54 - Notes Notes: PHYSICAL EXAM GENERAL: Alert, interacts well. HEAD: Normocephalic, atraumatic. EYES: Pupils equal, round, and reactive to light. Extraocular movements intact. ENT: Mild tenderness to palpation over the right mandibular joint. Without overlying erythema or crepitus. Full range of motion of the jaw without any evidence of dislocation or deformity oral mucosa moist, tongue midline. NECK: Full range of motion. Supple. Trachea midline. LUNGS: Clear to auscultation bilaterally, no wheezes, rales, or rhonchi. No respiratory distress. HEART: Regular rate and rhythm. No murmurs, gallops, or rubs. ABDOMEN: Soft, nondistended, nontender. No guarding, rebound, or rigidity.. Bowel sounds present in all 4 quadrants. EXTREMITIES: Moves all 4 extremities spontaneously. No edema, radial and dorsalis pedis pulses 2/4 bilaterally. No cyanosis. NEUROLOGICAL: Alert and oriented x4. Normal speech. PSYCH: Normal affect, normal mood. SKIN: Warm, dry, normal turgor. No rashes or lesions noted. Mild tenderness to palpation over the right Course - Re-evaluation Re-evalutation: 05/14/17 18:20 Patient is a 4-year-old female hemodynamic stable, no acute distress afebrile. Her chief complaint was for pain medication for her TMJ. She states that she knows she is to follow-up with her pourer regarding this complaint. Otherwise she is denying that she wants any evaluation of her blood pressure. She states that she came here to also have it checked. She acknowledges that she needs to follow-up with her primary care doctor. Patient has been offered ibuprofen and is stable for discharge home. - Vital Signs Vital signs: Temp Pulse Resp BP Pulse Ox 98.0 F 91 18 139/89 H 99 05/14/17 17:54 05/14/17 17:54 05/14/17 17:54 05/14/17 17:54 05/14/17 17:54 Discharge - Discharge Clinical Impression: TMJ arthralgia Qualifiers: Laterality: right Qualified Code(s): M26.621 - Arthralgia of right temporomandibular joint Condition: Good Disposition: HOME, SELF-CARE Instructions: Temporomandibular Joint Syndrome ([facility]) Prescriptions: Ibuprofen 600 mg PO BID #10 tablet Referrals: ARACELI CORTEZ MD [Primary Care Provider] - Follow up in 3-5 days
== END 2017-05-14 18:37 | disposition home or self-care (01) ==
LOC: ER 17:48
DX: R03.0 Elevated blood-pressure reading, without diagnosis of hypertension (principal); M26.621 Arthralgia of right temporomandibular joint
CPT/HCPCS: 99283; A9270

== ENCOUNTER 2017-05-17 18:50 | Emergency (ER) | payer MEDICARE, MEDICAID ==
[2017-05-17] MEDS ORDERED: DEXAMETHASONE SOD PHOS INJ 10 MG/1 ML VIAL IM ONE (22:46)
--- NOTE | 2017-05-17 22:51 | ER Document Report ---
ED General - General Chief Complaint: Ear Pain Stated Complaint: EAR PAIN Time Seen by Provider: 05/17/17 22:18 Notes: Patient is a 58-year-old female presents with complaints of pain in both ears. She says she has had a lot of nasal congestion and cough. She says now she feels as if she has pressure behind her ears and feels tightness around her ears. She denies any sore throat. She denies fevers. She has no other complaints at this time. TRAVEL OUTSIDE OF THE [place] IN LAST 30 DAYS: No COUNTRY TRAVELED TO/FROM: [place] - Related Data Allergies/Adverse Reactions: Penicillins Allergy (Severe, Verified 05/14/17 17:54) Anaphylaxis Sulfa (Sulfonamide Antibiotics) Allergy (Intermediate, Verified 05/14/17 17:54) iching, nausea ciprofloxacin [From Cipro] Allergy (Mild, Verified 05/14/17 17:54) itching, nausea meperidine HCl [From Demerol] Allergy (Mild, Verified 05/14/17 17:54) heart palpitations Past Medical History - Social History Smoking Status: Unknown if Ever Smoked Frequency of alcohol use: None Drug Abuse: None Family History: Reviewed & Not Pertinent, Arthritis, CAD, CVA, DM, Hyperlipidemia, Hypertension, Malignancy, Thyroid Disfunction Patient has suicidal ideation: No Patient has homicidal ideation: No Pulmonary Medical History: Reports: Hx Asthma, Hx Pneumonia - 2016 Neurological Medical History: Denies: Hx Cerebrovascular Accident Renal/ Medical History: Denies: Hx Peritoneal Dialysis GI Medical History: Reports: Hx Crohn's Disease, Hx Diverticulitis, Hx Gastroesophageal Reflux Disease, Hx Hiatal Hernia, Hx Irritable Bowel, Hx Ulcer. Denies: Hx Hepatitis Musculoskeltal Medical History: Reports Hx Arthritis, Reports Hx Musculoskeletal Deformity, Reports Hx Musculoskeletal Trauma Psychiatric Medical History: Reports: Hx Anxiety, Hx Depression Infectious Medical History: Denies: Hx Hepatitis Past Surgical History: Reports: Hx Abdominal Surgery - small intestine removal, Hx Appendectomy, Hx Bowel Surgery - small intestine, Hx Breast Surgery - biopsy , Hx Hysterectomy, Hx Neurologic Surgery - brain tumor removed, Hx Tonsillectomy. Denies: Hx Mastectomy, Hx Open Heart Surgery, Hx Pacemaker - Immunizations Immunizations up to date: Yes Hx Diphtheria, Pertussis, Tetanus Vaccination: Yes - 09/2010 Hx Pneumococcal Vaccination: 01/03/11 Review of Systems - Review of Systems Notes: My Normal Review Basic REVIEW OF SYSTEMS: CONSTITUTIONAL : Denies fever, chills, or sweats. Denies recent illness. EENT: Bilateral ear pain. CARDIOVASCULAR: Denies chest pain. RESPIRATORY: Some cough. GASTROINTESTINAL: Denies abdominal pain. Denies nausea, vomiting, or diarrhea. MUSCULOSKELETAL: Denies neck or back pain or joint pain or swelling. SKIN: Denies rash or skin lesions. NEUROLOGICAL: Denies sensory or motor loss. ALL OTHER SYSTEMS REVIEWED AND NEGATIVE. Physical Exam - Notes Notes: General Appearance: Well nourished, alert, cooperative, no acute distress, no obvious discomfort. Well-appearing. Vitals: reviewed, See vital signs table. Head: no swelling or tenderness to the head. Mastoid swelling or inflammation. Eyes: PERRL, EOMI, Conjuctiva clear Mouth: No decreasd moisture Ears: Normal-appearing tympanic membranes bilaterally. She does have some clear fluid behind the tympanic membranes consistent with serous effusion. Throat: No tonsillar inflammation, No airway obstruction Neck: Supple, no neck tenderness, No lymphadenopathy. Lungs: No wheezing, No rales, No rhonci, No accessory muscle use, good air exchange bilaterally. Heart: Normal rate, Regular rythm, No murmur, no rub Skin: warm, dry, appropriate color, no rash Neuro: speech clear, oriented x 3, normal affect, responds appropriately to questions. Course - Re-evaluation Re-evalutation: 05/17/17 23:35 I suspect the patient's ear pain is related to eustachian tube dysfunction is most likely being caused by upper respiratory infection. So the pain did start after she was having little runny nose and congestion. Patient will be given a shot of Decadron. Encouraged her take Tylenol for pain. Encouraged her return to ER if she has fevers, worsening pain, redness or swelling around the ears, or she feels unwell. Patient agrees with plan will be discharged home. Patient does have a history of TMJ and this pain could also be related to her TMJ dysfunction; however, patient says this pain is different than her typical TMJ pain. Dictation of this chart was performed using voice recognition software; therefore, there may be some unintended grammatical errors. Discharge - Discharge Clinical Impression: Ear pain Qualifiers: Laterality: bilateral Qualified Code(s): H92.03 - Otalgia, bilateral URI (upper respiratory infection) Qualifiers: URI type: unspecified URI Qualified Code(s): J06.9 - Acute upper respiratory infection, unspecified Condition: Good Disposition: HOME, SELF-CARE Additional Instructions: You have been given a shot of Decadron. This is a type of steroid. I suspect your ear pain is related to the congestion that you have been having. Please follow up with your doctor in 2-3 days for reevaluation. return to the ER if you have worsening pain, fevers, or feel unwell.
[2017-05-18 03:53] VITALS: BP 139/81
== END 2017-05-17 23:03 | disposition home or self-care (01) ==
LOC: ER 18:50
DX: J06.9 Acute upper respiratory infection, unspecified (principal); H92.03 Otalgia, bilateral; R09.81 Nasal congestion; Z88.0 Allergy status to penicillin; Z88.2 Allergy status to sulfonamides; Z88.3 Allergy status to other anti-infective agents; Z90.710 Acquired absence of both cervix and uterus
CPT/HCPCS: 99282; 96372; J1100

== ENCOUNTER 2017-05-20 18:56 | Emergency (ER) | payer MEDICARE, MEDICAID ==
--- NOTE | 2017-05-20 22:40 | ER Document Report ---
ED General - General Chief Complaint: Weakness Stated Complaint: WEAKNESS Time Seen by Provider: 05/20/17 22:39 Mode of Arrival: Medic Information source: Patient, Emergency Med Personnel, [facility] [place] Records Notes: This is the eighth emergency room visit in less than 4 weeks for this 66-year- old female. She has been to this facility at least 30 times in the last 9 months and it appears her abuse of the emergency room is escalating. Patient states she is having her diverticulitis pain for the last 2 weeks. She wants to give me an anatomy lesson about her colon and how it comes down on the left side. She states when the pain gets bad it makes her heart beat fast. She wants a CT scan done. TRAVEL OUTSIDE OF THE [place] IN LAST 30 DAYS: No COUNTRY TRAVELED TO/FROM: [place] - Related Data Allergies/Adverse Reactions: Penicillins Allergy (Severe, Verified 05/20/17 19:06) Anaphylaxis Sulfa (Sulfonamide Antibiotics) Allergy (Intermediate, Verified 05/20/17 19:06) iching, nausea ciprofloxacin [From Cipro] Allergy (Mild, Verified 05/20/17 19:06) itching, nausea meperidine HCl [From Demerol] Allergy (Mild, Verified 05/20/17 19:06) heart palpitations Past Medical History - General Information source: Patient, Emergency Med Personnel, [facility] [place] Records - Social History Smoking Status: Unknown if Ever Smoked Cigarette use (# per day): No Chew tobacco use (# tins/day): No Smoking Education Provided: No Frequency of alcohol use: None Drug Abuse: None Lives with: Alone Family History: Reviewed & Not Pertinent, Arthritis, CAD, CVA, DM, Hyperlipidemia, Hypertension, Malignancy, Thyroid Disfunction - Past Medical History Cardiac Medical History: Reports: None Pulmonary Medical History: Reports: Hx Asthma, Hx Pneumonia - 2017 EENT Medical History: Reports: None Neurological Medical History: Reports: None Endocrine Medical History: Reports: None Renal/ Medical History: Reports: None GI Medical History: Reports: Hx Crohn's Disease, Hx Diverticulitis, Hx Gastroesophageal Reflux Disease, Hx Hiatal Hernia, Hx Irritable Bowel, Hx Ulcer Musculoskeltal Medical History: Reports Hx Arthritis, Reports Hx Musculoskeletal Deformity, Reports Hx Musculoskeletal Trauma Psychiatric Medical History: Reports: Hx Anxiety, Hx Depression Past Surgical History: Reports: Hx Abdominal Surgery - small intestine removal, Hx Appendectomy, Hx Bowel Surgery - small intestine, Hx Breast Surgery - biopsy , Hx Hysterectomy, Hx Neurologic Surgery - brain tumor removed, Hx Tonsillectomy - Immunizations Immunizations up to date: Yes Hx Diphtheria, Pertussis, Tetanus Vaccination: Yes - 09/2010 Hx Pneumococcal Vaccination: 08/24/10 Review of Systems - Review of Systems Constitutional: Weakness EENT: No symptoms reported Cardiovascular: No symptoms reported, Heart racing Respiratory: Short of breath Gastrointestinal: Abdominal pain Female Genitourinary: Post menopausal Musculoskeletal: No symptoms reported Skin: No symptoms reported Hematologic/Lymphatic: No symptoms reported Neurological/Psychological: Weakness, Numbness Physical Exam - Vital signs Vitals: Temp Pulse Resp BP Pulse Ox 98.0 F 85 18 145/70 H 100 05/20/17 19:01 05/20/17 19:01 05/20/17 19:01 05/20/17 19:01 05/20/17 19:01 Interpretation: Normal - General General appearance: Appears well, Alert In distress: None Notes: Patient was resting quite comfortably until she got the opportunity to begin relaying her history. By the time she was done telling her story and I did an exam, she was rolling all over the place and horrible uncontrolled pain. - HEENT Head: Normocephalic, Atraumatic Eyes: Normal Pupils: PERRL - Respiratory Respiratory status: No respiratory distress - Cardiovascular Rhythm: Regular - Abdominal Inspection: Other - Somewhat obese, old surgical scars. Distension: No distension Bowel sounds: Normal Tenderness: Other - Initially I palpated deep into the right and left lower quadrants using the stethoscope while auscultating and she did not seem to have any pain whatsoever. Then on palpation with my fingertips, she developed severe incapacitating pain. - Back Back: Normal - Extremities General upper extremity: Normal inspection General lower extremity: Normal inspection - Neurological Neuro grossly intact: Yes - Psychological Associated symptoms: Other - The patient suffers from severe hypochondriasis Course - Vital Signs Vital signs: Temp Pulse Resp BP Pulse Ox 98.0 F 85 18 145/70 H 100 05/20/17 19:01 05/20/17 19:01 05/20/17 19:01 05/20/17 19:01 05/20/17 19:01 - Laboratory Result Diagrams: 05/20/17 23:18 Laboratory results interpreted by me: 05/20/17 23:18 WBC 10.6 H RDW 16.4 H Plt Count 472 H Eosinophils % 7.2 H Absolute Eosinophils 0.8 H - EKG Interpretation by Me EKG shows normal: Sinus rhythm, [place], Intervals, QRS Complexes, ST-T Waves Rate: Normal - 78 Rhythm: NSR Discharge - Discharge Clinical Impression: Heart rate fast Abdominal pain Qualifiers: Abdominal location: lower abdomen, unspecified Qualified Code(s): R10.30 - Lower abdominal pain, unspecified Condition: Stable Disposition: HOME, SELF-CARE Additional Instructions: Abdominal Pain: There are many causes of abdominal pain. Pain can mean a serious problem requiring surgery (such as appendicitis). It can also be an innocent problem that goes away on its own (such as a viral infection). Often, time must pass to determine the cause of pain. The physician does not feel that hospitalization is necessary, at present. Things may change within the next 24 hours. Call the doctor or come back for re- examination if any problems occur, such as: (1) Pain that becomes more severe, steady, or becomes concentrated in one specific area. Also, pain that is more severe with movement or coughing. (2) Vomiting that persists or becomes more frequent. (3) Blood in the vomitus, urine, or bowel movements. Blood in the stool may have a tarry or black appearance. (4) Shaking chills or fever greater than 100 degrees F. (5) The abdomen becomes more distended or swollen. (6) Bowel movements cease. (7) Failure to improve as expected. //////////////////////////////////////////////////////////////////////////////// //////////////////////////////////////////////////////////////////////////////// ////////////// Your fast heart rate you reported occurring earlier today seems to have resolved on its own. Your physical exam does not suggest an acute inflammatory process in your abdomen or pelvis at this time. Your blood count does not suggest an infectious process at this time. You should follow-up with your primary care provider on Tuesday to discuss your health concerns.
[2017-05-20 23:29] LABS: ABSOLUTE BASOPHILS # (AUTO) 0.1 10^3/uL (0.0-0.2); ABSOLUTE EOSINOPHILS # (AUTO) 0.8 10^3/uL (0.0-0.6); ABSOLUTE LYMPHOCYTES (AUTO) 2.4 10^3/uL (0.5-4.7); ABSOLUTE MONOCYTES (AUTO) 0.9 10^3/uL (0.1-1.4); ABSOLUTE NEUT (AUTO) 6.5 10^3/uL (1.7-8.2); BASOPHILS % (AUTO) 1.2 % (0-2); EOSINOPHILS % (AUTO) 7.2 % (0-6); HEMATOCRIT 36.2 % (36.0-47.0); HEMOGLOBIN 12.3 g/dL (12.0-15.5); HGB HCT DIFFERENCE 0.7; LYMPHOCYTES % (AUTO) 22.3 % (13-45); MEAN CORPUSCULAR VOLUME 88 fl (80-97); MONOCYTES % (AUTO) 8.3 % (3-13); RED BLOOD COUNT 4.11 10^6/uL (3.72-5.28); RED CELL DISTRIBUTION WIDTH 16.4 % (11.5-14.0); WHITE BLOOD COUNT 10.6 10^3/uL (4.0-10.5)
--- NOTE | 2017-05-21 00:14 | EKG REPORT ---
SEVERITY:- NORMAL ECG - SINUS RHYTHM : Confirmed by: Dominique Stevens 21-May-2017 00:13:42
[2017-05-21 00:23] VITALS: BP 149/75
== END 2017-05-21 00:09 | disposition home or self-care (01) ==
LOC: ER 18:56
DX: R10.32 Left lower quadrant pain (principal); R10.31 Right lower quadrant pain; R00.0 Tachycardia, unspecified; J45.909 Unspecified asthma, uncomplicated; R06.02 Shortness of breath; R20.0 Anesthesia of skin; R53.1 Weakness; Z88.0 Allergy status to penicillin; Z88.2 Allergy status to sulfonamides; Z88.1 Allergy status to other antibiotic agents; Z88.5 Allergy status to narcotic agent; Z87.19 Personal history of other diseases of the digestive system; Z90.49 Acquired absence of other specified parts of digestive tract; Z90.710 Acquired absence of both cervix and uterus
CPT/HCPCS: 36415; 85025; 93005; 93010; 99285

== ENCOUNTER → 2017-05-25 | Outpatient (CLI) | payer MEDICARE, MEDICAID ==
[2017-05-25 15:38] LABS: ABSOLUTE EOSINOPHILS # (AUTO) 0.6 10^3/uL (0.0-0.6); ABSOLUTE LYMPHOCYTES (AUTO) 1.2 10^3/uL (0.5-4.7); ABSOLUTE MONOCYTES (AUTO) 0.5 10^3/uL (0.1-1.4); ABSOLUTE NEUT (AUTO) 5.5 10^3/uL (1.7-8.2); BASOPHILS % (AUTO) 0.6 % (0-2); EOSINOPHILS % (AUTO) 8.2 % (0-6); HEMATOCRIT 34.2 % (36.0-47.0); HEMOGLOBIN 11.8 g/dL (12.0-15.5); HGB HCT DIFFERENCE 1.2; LYMPHOCYTES % (AUTO) 14.9 % (13-45); MEAN CORPUSCULAR HGB CONC 34.4 g/dL (32.0-36.0); MEAN CORPUSCULAR VOLUME 87 fl (80-97); MONOCYTES % (AUTO) 5.8 % (3-13); RED BLOOD COUNT 3.93 10^6/uL (3.72-5.28); RED CELL DISTRIBUTION WIDTH 16.5 % (11.5-14.0); SEGMENTED NEUTROPHILS % (AUTO) 70.5 % (42-78); WHITE BLOOD COUNT 7.8 10^3/uL (4.0-10.5)
== END ==
LOC: OD 14:32
PROVIDERS: ATTEND Specialist
DX: R10.9 Unspecified abdominal pain (principal); D50.9 Iron deficiency anemia, unspecified
CPT/HCPCS: 36415; 85025

== ENCOUNTER → 2017-05-25 | Outpatient (CLI) | payer MEDICARE, MEDICAID ==
--- NOTE | 2017-05-25 15:54 | RADIOLOGY REPORT (SQ) ---
EXAM DESCRIPTION: LUMBAR SPINE COMPLETE COMPLETED DATE/TIME: 05/25/2017 3:34 pm REASON FOR STUDY: LOW BACK PAIN M54.2 CERVICALGIA M54.5 LOW BACK PAIN COMPARISON: 2015. NUMBER OF VIEWS: Five views including obliques. TECHNIQUE: AP, lateral, oblique, and sacral radiographic images acquired of the lumbar spine. LIMITATIONS: None. FINDINGS: MINERALIZATION: Normal. SEGMENTATION: Normal. No transitional anatomy. ALIGNMENT: Normal. VERTEBRAE: Maintained height. No fracture or worrisome bone lesion. DISCS: Multilevel disc space narrowing with osteophytes. POSTERIOR ELEMENTS: Pedicles and facets are intact. No pars defect or posterior arch defects. Facet arthropathy is present. HARDWARE: None in the spine. PARASPINAL SOFT TISSUES: Normal. PELVIS: Intact as visualized. No fractures or worrisome bone lesions. SI joints intact. OTHER: No other significant finding. IMPRESSION: SPONDYLOSIS WITHOUT BONE LESION OR FRACTURE. TECHNICAL DOCUMENTATION: JOB ID: [id number] [employer]- All Rights Reserved
--- NOTE | 2017-05-25 15:56 | RADIOLOGY REPORT (SQ) ---
EXAM DESCRIPTION: C SP 4 OR 5 VIEWS COMPLETED DATE/TIME: 05/25/2017 3:34 pm REASON FOR STUDY: CERVICALGIA M54.2 CERVICALGIA M54.5 LOW BACK PAIN COMPARISON: None. NUMBER OF VIEWS: Five views. TECHNIQUE: AP, lateral, obliques and odontoid radiographic images acquired of the cervical spine. LIMITATIONS: None. FINDINGS: MINERALIZATION: Mild osteopenia. ALIGNMENT: Anatomic. VERTEBRAE: Vertebral bodies of normal height. DISCS: Mild disc space narrowing with small osteophytes, most pronounced at C5-6. FORAMINA: Right C5-6 mild foraminal narrowing. Left C4-5 and C5-6 mild foraminal narrowing. LATERAL AND POSTERIOR ELEMENTS: Facets, lateral masses and spinous processes without significant find ings. HARDWARE: None in the spine. SOFT TISSUES: No masses or calcifications. Lung apices clear. OTHER: No other significant finding. IMPRESSION: Cervical spondylosis. No fracture or worrisome bone lesion. TECHNICAL DOCUMENTATION: JOB ID: [id number]- All Rights Reserved
== END ==
LOC: OD 14:55
PROVIDERS: ATTEND Physician Assistant
DX: M54.2 Cervicalgia (principal); M54.5 Low back pain; M47.892 Other spondylosis, cervical region
CPT/HCPCS: 72050; 72110

== ENCOUNTER 2017-05-27 20:44 | Emergency (ER) | payer MEDICARE, MEDICAID ==
[2017-05-27] MEDS ORDERED: LACTULOSE SYRUP 20 GM/30 ML UDCUP PO ONE (22:55)
--- NOTE | 2017-05-27 22:56 | ER Document Report ---
ED General - General Chief Complaint: Abdominal Pain Stated Complaint: TROUBLE EATING Time Seen by Provider: 05/27/17 22:41 Cannot obtain history due to: Mentally challenged, Uncooperative Notes: Patient is a 66-year-old female very well-known to this emergency department who presents for the nighttime in the past 30 days for a multitude of complaints. Patient is a very difficult, rambling historian, and today of her most pressing concern appears to be related to concerns of possible constipation although she continues to repeat that her primary concern is her diverticulitis is acting up again. The patient is frequently here stating that her diverticulitis is acting up again. She is having difficulty explaining to me why she is here in the emergency department tonight or what is new or different. She denies any vomiting. She has not had any fever. She just saw Dr. Marlow her GI specialist yesterday for the same issue but is unable to relate to me what management was recommended. TRAVEL OUTSIDE OF THE [place] IN LAST 30 DAYS: No COUNTRY TRAVELED TO/FROM: [place] - Related Data Allergies/Adverse Reactions: Penicillins Allergy (Severe, Verified 05/20/17 19:06) Anaphylaxis Sulfa (Sulfonamide Antibiotics) Allergy (Intermediate, Verified 05/20/17 19:06) iching, nausea ciprofloxacin [From Cipro] Allergy (Mild, Verified 05/20/17 19:06) itching, nausea meperidine HCl [From Demerol] Allergy (Mild, Verified 05/20/17 19:06) heart palpitations Past Medical History - General Information source: Patient - Social History Smoking Status: Never Smoker Frequency of alcohol use: None Drug Abuse: None Lives with: Alone Family History: Reviewed & Not Pertinent, Arthritis, CAD, CVA, DM, Hyperlipidemia, Hypertension, Malignancy, Thyroid Disfunction Pulmonary Medical History: Reports: Hx Asthma, Hx Pneumonia - 2017 Neurological Medical History: Denies: Hx Cerebrovascular Accident Renal/ Medical History: Denies: Hx Peritoneal Dialysis GI Medical History: Reports: Hx Crohn's Disease, Hx Diverticulitis, Hx Gastroesophageal Reflux Disease, Hx Hiatal Hernia, Hx Irritable Bowel, Hx Ulcer. Denies: Hx Hepatitis Musculoskeltal Medical History: Reports Hx Arthritis, Reports Hx Musculoskeletal Deformity, Reports Hx Musculoskeletal Trauma Psychiatric Medical History: Reports: Hx Anxiety, Hx Depression Infectious Medical History: Denies: Hx Hepatitis Past Surgical History: Reports: Hx Abdominal Surgery - small intestine removal, Hx Appendectomy, Hx Bowel Surgery - small intestine, Hx Breast Surgery - biopsy , Hx Hysterectomy, Hx Neurologic Surgery - brain tumor removed, Hx Tonsillectomy. Denies: Hx Mastectomy, Hx Open Heart Surgery, Hx Pacemaker - Immunizations Immunizations up to date: Yes Hx Diphtheria, Pertussis, Tetanus Vaccination: Yes - 09/2010 Hx Pneumococcal Vaccination: 08/24/10 Review of Systems - Review of Systems Notes: Constitutional: Negative for fever. HENT: Negative for sore throat. Eyes: Negative for visual changes. Cardiovascular: Negative for chest pain. Respiratory: Negative for shortness of breath. Gastrointestinal: Positive for abdominal pain and constipation Genitourinary: Negative for dysuria. Musculoskeletal: Negative for back pain. Skin: Negative for rash. Neurological: Negative for headaches, weakness or numbness. 10 point ROS negative except as marked above and in HPI. Physical Exam - Vital signs Vitals: Temp Pulse Resp BP Pulse Ox 98.0 F 82 17 136/88 H 100 05/27/17 21:05 05/27/17 21:05 05/27/17 21:05 05/27/17 21:05 05/27/17 21:05 Interpretation: Normal Notes: PHYSICAL EXAMINATION: GENERAL: Well-appearing, well-nourished and in no acute distress. HEAD: Atraumatic, normocephalic. EYES: Pupils equal round and reactive to light, extraocular movements intact, sclera anicteric, conjunctiva are normal. ENT: nares patent, oropharynx clear without exudates. Moist mucous membranes. NECK: Normal range of motion, supple without lymphadenopathy LUNGS: Breath sounds clear to auscultation bilaterally and equal. No wheezes rales or rhonchi. HEART: Regular rate and rhythm without murmurs ABDOMEN: Soft, nontender, normoactive bowel sounds. No guarding, no rebound. No masses appreciated. EXTREMITIES: Normal range of motion, no pitting or edema. No cyanosis. NEUROLOGICAL: No focal neurological deficits. Moves all extremities spontaneously and on command. PSYCH: Tangential thought process, baseline mental status SKIN: Warm, Dry, normal turgor, no rashes or lesions noted. Course - Re-evaluation Re-evalutation: 05/27/17 22:56 Patient presents with multiple vague complaints that did not appear to be concerning for any acute life-threatening pathology. Vitals are within normal limits at triage and at time of discharge. Physical examination is unremarkable. Patient has tolerated oral intake without difficulty. Patient was not noted to be in distress at any point during their ER visit. At this time, based on the reassuring evaluation, I do not suspect an acute NE, pulmonary embolus, aortic dissection, acute intra-abdominal pathology, stroke, or sepsis.Will discharge with return precautions and follow-up recommendations. Verbal discharge instructions given a the bedside and opportunity for questions given. Medication warnings reviewed. Patient is in agreement with this plan and has verbalized understanding of return precautions and the need for primary care follow-up in the next 24-72 hours. - Vital Signs Vital signs: Temp Pulse Resp BP Pulse Ox 98.0 F 74 18 130/74 H 100 05/27/17 23:26 05/27/17 23:26 05/27/17 23:26 05/27/17 23:26 05/27/17 23:26 Discharge - Discharge Clinical Impression: Abdominal pain Qualifiers: Abdominal location: generalized Qualified Code(s): R10.84 - Generalized abdominal pain Constipation Qualifiers: Constipation type: other constipation type Qualified Code(s): K59.09 - Other constipation Condition: Good Disposition: HOME, SELF-CARE Additional Instructions: Please return to the emergency room immediately if you experience any concerning symptoms including high fevers, severe headache, chest pain, difficulty breathing, abdominal pain, slurred speech, numbness or weakness in your arms or legs, or any other symptom that concerns you.
[2017-05-27 23:28] VITALS: BP 130/74
== END 2017-05-27 23:28 | disposition home or self-care (01) ==
LOC: ER 20:44
DX: K59.09 Other constipation (principal); R10.84 Generalized abdominal pain
CPT/HCPCS: 99283; A9270

== ENCOUNTER 2017-06-10 16:49 | Emergency (ER) | payer MEDICARE, MEDICAID ==
[2017-06-10 17:00] VITALS: BP 148/72
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
== END 2017-06-10 17:45 | disposition home or self-care (01) ==
LOC: ER 16:49
DX: S00.83XA Contusion of other part of head, initial encounter (principal); W22.8XXA Striking against or struck by other objects, initial encounter; Y93.89 Activity, other specified; J45.909 Unspecified asthma, uncomplicated; F17.200 Nicotine dependence, unspecified, uncomplicated; Z88.5 Allergy status to narcotic agent; Z88.1 Allergy status to other antibiotic agents; Z88.2 Allergy status to sulfonamides; Z87.892 Personal history of anaphylaxis; Z88.0 Allergy status to penicillin
CPT/HCPCS: 99283

== ENCOUNTER 2017-07-12 20:16 | Emergency (ER) | payer MEDICARE, MEDICAID ==
--- NOTE | 2017-07-12 22:22 | ER Document Report ---
HPI - HPI Patient complains to provider of: Right knee pain Pain Level: 3 Context: Patient is a 66-year-old female comes emergency department for chief complaint of bruising painful area over her right leg just below her knee over the inner aspect. She states she does not think she hit it. She reports some pain with walking. She also states she thinks she is dehydrated even though she has been drinking lots of fluids, she also states she needs her vitamin B12 shots. She denies vomiting, fever, numbness, or any other areas of pain. She states she does not like her primary care provider and she wants a new one. - CONSTITUTIONAL Constitutional: DENIES: Fever, Chills - EENT EENT: DENIES: Sore Throat, Ear Pain, Eye problems - NEURO Neurology: DENIES: Headache, Weakness, Vision blurred, Dizzinesss / Vertigo - CARDIOVASCULAR Cardiovascular: DENIES: Chest pain - RESPIRATORY Respiratory: DENIES: Trouble Breathing, Coughing - GASTROINTESTINAL Gastrointestinal: DENIES: Abdominal Pain, Black / Bloody Stools - URINARY Urinary: DENIES: Dysuria, Urgency, Frequency - REPRODUCTIVE Reproductive: DENIES: : - MUSCULOSKELETAL Musculoskeletal: REPORTS: Extremity pain Past Medical History - General Information source: Patient - Social History Smoking Status: Never Smoker Frequency of alcohol use: None Drug Abuse: None Lives with: Family Family History: Arthritis, CAD, CVA, DM, Hyperlipidemia, Hypertension, Malignancy, Thyroid Disfunction Patient has suicidal ideation: No Patient has homicidal ideation: No Pulmonary Medical History: Reports: Hx Asthma, Hx Pneumonia - 2017 Neurological Medical History: Denies: Hx Cerebrovascular Accident Renal/ Medical History: Denies: Hx Peritoneal Dialysis GI Medical History: Reports: Hx Crohn's Disease, Hx Diverticulitis, Hx Gastroesophageal Reflux Disease, Hx Hiatal Hernia, Hx Irritable Bowel, Hx Ulcer. Denies: Hx Hepatitis Musculoskeltal Medical History: Reports Hx Arthritis, Reports Hx Musculoskeletal Deformity, Reports Hx Musculoskeletal Trauma Psychiatric Medical History: Reports: Hx Anxiety, Hx Depression Infectious Medical History: Denies: Hx Hepatitis Past Surgical History: Reports: Hx Abdominal Surgery - small intestine removal, Hx Appendectomy, Hx Bowel Surgery - small intestine, Hx Breast Surgery - biopsy , Hx Hysterectomy, Hx Neurologic Surgery - brain tumor removed, Hx Tonsillectomy. Denies: Hx Mastectomy, Hx Open Heart Surgery, Hx Pacemaker - Immunizations Immunizations up to date: Yes Hx Diphtheria, Pertussis, Tetanus Vaccination: Yes - 09/2010 Hx Pneumococcal Vaccination: 08/24/10 Vertical Provider Document - CONSTITUTIONAL General Appearance: WD/WN - INFECTION CONTROL TRAVEL OUTSIDE OF THE [place] IN LAST 30 DAYS: No COUNTRY TRAVELED TO/FROM: [place] - HEENT HEENT: Atraumatic, Normocephalic - NECK Neck: Normal Inspection - RESPIRATORY Respiratory: Breath Sounds Normal, No Respiratory Distress O2 Sat by Pulse Oximetry: 100 - CARDIOVASCULAR Cardiovascular: Regular Rate, Regular Rhythm - GI/ABDOMEN Gastrointestinal: Abdomen Soft, Abdomen Non-Tender - BACK Back: Normal Inspection - MUSCULOSKELETAL/EXTREMETIES Musculoskeletal/Extremeties: MAEW, FROM, Tender - There is a small circular bruise noted over the proximal tibia of the right leg, no swelling of the knee joint, full range of motion, ambulates without difficulty, normal distal neurovascular exam, normal lower extremity exam otherwise. - NEURO Level of Consciousness: Awake, Alert - DERM Integumentary: Warm, Dry Course - Re-evaluation Re-evalutation: X-ray unremarkable. Ambulates without difficulty. Appears to be a small traumatic bruise. No petechiae or bruising over the body otherwise. Unremarkable vital signs, well-appearing patient, clear lungs, soft abdomen, unremarkable examination otherwise. Patient also has her usual complaints, she wants B12 shots to be given to her, she also wants a primary care provider. Patient was given a list of primary care provider to choose from, instructed to follow-up with them for her B12. - Vital Signs Vital signs: Temp Pulse Resp BP Pulse Ox 97.7 F 74 16 138/74 H 100 07/12/17 20:45 07/12/17 20:45 07/12/17 20:45 07/12/17 20:45 07/12/17 20:45 Discharge - Discharge Clinical Impression: Contusion of right knee Qualifiers: Encounter type: initial encounter Qualified Code(s): S80.01XA - Contusion of right knee, initial encounter Condition: Stable Disposition: HOME, SELF-CARE Instructions: Family Physicians / Practices Additional Instructions: The x-ray of the right knee is normal. Apply ice to the area, take over-the- counter medications such as ibuprofen, rest your knee. This should resolve with time. Follow-up with primary care, see the primary care referral list. Return the emergency department for any concerning worsening symptoms including redness or swelling of the knee, fever, or any other concerning symptoms.
--- NOTE | 2017-07-12 23:01 | RADIOLOGY REPORT (SQ) ---
EXAM DESCRIPTION: KNEE RIGHT 3 VIEWS COMPLETED DATE/TIME: 07/12/2017 10:51 pm REASON FOR STUDY: Ecchymosis, pain COMPARISON: None. NUMBER OF VIEWS: Three views. TECHNIQUE: AP, lateral, and sunrise patella radiographic images acquired of the right knee. LIMITATIONS: None. FINDINGS: MINERALIZATION: Normal. BONES: No acute fracture or dislocation. No worrisome bone lesions. JOINT: No effusion. SOFT TISSUES: No soft tissue swelling. No radio-opaque foreign body. OTHER: No other significant finding. IMPRESSION: NEGATIVE STUDY OF THE RIGHT KNEE. NO RADIOGRAPHIC EVIDENCE OF ACUTE INJURY. TECHNICAL DOCUMENTATION: JOB ID: [id number] [employer]- All Rights Reserved
[2017-07-13 00:23] VITALS: BP 129/78
== END 2017-07-13 00:16 | disposition home or self-care (01) ==
LOC: ER 20:16
DX: S80.01XA Contusion of right knee, initial encounter (principal); M25.561 Pain in right knee; X58.XXXA Exposure to other specified factors, initial encounter
CPT/HCPCS: 99283

== ENCOUNTER 2017-08-08 18:42 | Emergency (ER) | payer MEDICARE, MEDICAID ==
[2017-08-08 19:38] LABS: ABSOLUTE BASOPHILS # (AUTO) 0.1 10^3/uL (0.0-0.2); ABSOLUTE EOSINOPHILS # (AUTO) 0.3 10^3/uL (0.0-0.6); ABSOLUTE LYMPHOCYTES (AUTO) 1.7 10^3/uL (0.5-4.7); ABSOLUTE MONOCYTES (AUTO) 0.4 10^3/uL (0.1-1.4); ABSOLUTE NEUT (AUTO) 5.1 10^3/uL (1.7-8.2); BASOPHILS % (AUTO) 0.8 % (0-2); EOSINOPHILS % (AUTO) 4.3 % (0-6); HEMATOCRIT 36.7 % (36.0-47.0); HEMOGLOBIN 12.7 g/dL (12.0-15.5); HGB HCT DIFFERENCE 1.4; LYMPHOCYTES % (AUTO) 22.1 % (13-45); MEAN CORPUSCULAR HEMOGLOBIN 31.1 pg (27.0-33.4); MEAN CORPUSCULAR HGB CONC 34.5 g/dL (32.0-36.0); MEAN CORPUSCULAR VOLUME 90 fl (80-97); MONOCYTES % (AUTO) 5.6 % (3-13); RED BLOOD COUNT 4.06 10^6/uL (3.72-5.28); RED CELL DISTRIBUTION WIDTH 18.1 % (11.5-14.0); SEGMENTED NEUTROPHILS % (AUTO) 67.2 % (42-78); WHITE BLOOD COUNT 7.6 10^3/uL (4.0-10.5)
[2017-08-08 19:52] LABS: ANION GAP 11 (5-19); BLOOD UREA NITROGEN 5 mg/dL (7-20); CALCIUM 8.9 mg/dL (8.4-10.2); CARBON DIOXIDE 26 mmol/L (22-30); CHLORIDE 100 mmol/L (98-107); CREATININE RESULT 0.69 mg/dL (0.52-1.25); GLUCOSE 85 mg/dL (75-110); POTASSIUM 3.6 mmol/L (3.6-5.0); SODIUM 136.6 mmol/L (137-145)
--- NOTE | 2017-08-08 20:03 | ER Document Report ---
ED General - General Chief Complaint: Abdominal Pain Stated Complaint: ABDOMINAL PAIN Time Seen by Provider: 08/08/17 19:04 Mode of Arrival: Ambulatory Information source: Patient Notes: Patient states she was feeling lightheaded and dizzy. She states that she feels she may be dehydrated. She also states that she has felt somewhat nervous. She states this started 3:45 PM today. She is also had some abdominal cramps of been mild and diffuse. Nothing makes it better or worse. Did not radiate. No chest pain or shortness of breath. TRAVEL OUTSIDE OF THE [place] IN LAST 30 DAYS: No COUNTRY TRAVELED TO/FROM: [place] - Related Data Allergies/Adverse Reactions: Penicillins Allergy (Severe, Verified 08/08/17 18:44) Anaphylaxis Sulfa (Sulfonamide Antibiotics) Allergy (Intermediate, Verified 08/08/17 18:44) iching, nausea ciprofloxacin [From Cipro] Allergy (Mild, Verified 08/08/17 18:44) itching, nausea meperidine HCl [From Demerol] Allergy (Mild, Verified 08/08/17 18:44) heart palpitations Past Medical History - General Information source: Patient - Social History Smoking Status: Never Smoker Frequency of alcohol use: None Drug Abuse: None Family History: Arthritis, CAD, CVA, DM, Hyperlipidemia, Hypertension, Malignancy, Thyroid Disfunction Patient has suicidal ideation: No Patient has homicidal ideation: No Pulmonary Medical History: Reports: Hx Asthma, Hx Pneumonia - 2016 Neurological Medical History: Denies: Hx Cerebrovascular Accident Renal/ Medical History: Denies: Hx Peritoneal Dialysis GI Medical History: Reports: Hx Crohn's Disease, Hx Diverticulitis, Hx Gastroesophageal Reflux Disease, Hx Hiatal Hernia, Hx Irritable Bowel, Hx Ulcer. Denies: Hx Hepatitis Musculoskeltal Medical History: Reports Hx Arthritis, Reports Hx Musculoskeletal Deformity, Reports Hx Musculoskeletal Trauma Psychiatric Medical History: Reports: Hx Anxiety, Hx Depression Infectious Medical History: Denies: Hx Hepatitis Past Surgical History: Reports: Hx Abdominal Surgery - small intestine removal, Hx Appendectomy, Hx Bowel Surgery - small intestine, Hx Breast Surgery - biopsy , Hx Hysterectomy, Hx Neurologic Surgery - brain tumor removed, Hx Tonsillectomy. Denies: Hx Mastectomy, Hx Open Heart Surgery, Hx Pacemaker - Immunizations Immunizations up to date: Yes Hx Diphtheria, Pertussis, Tetanus Vaccination: Yes - 09/2010 Hx Pneumococcal Vaccination: 08/24/10 Review of Systems - Review of Systems Constitutional: denies: Chills, Fever Respiratory: denies: Cough, Short of breath Gastrointestinal: denies: Abdominal pain, Constipation -: Yes All other systems reviewed and negative Physical Exam - Vital signs Vitals: Temp Pulse Resp BP Pulse Ox 98.6 F 85 14 144/74 H 99 08/08/17 18:47 08/08/17 18:47 08/08/17 18:47 08/08/17 18:47 08/08/17 18:47 Interpretation: Hypertensive - General General appearance: Appears well, Alert - HEENT Head: Normocephalic, Atraumatic Eyes: Normal Pupils: PERRL - Respiratory Respiratory status: No respiratory distress Chest status: Nontender Breath sounds: Normal Chest palpation: Normal - Cardiovascular Rhythm: Regular Heart sounds: Normal auscultation Murmur: No - Abdominal Inspection: Normal Distension: No distension Bowel sounds: Normal Tenderness: Nontender Organomegaly: No organomegaly - Back Back: Normal, Nontender - Extremities General upper extremity: Normal inspection, Nontender, Normal color, Normal ROM , Normal temperature General lower extremity: Normal inspection, Nontender, Normal color, Normal ROM , Normal temperature, Normal weight bearing. No: Guille's sign - Neurological Neuro grossly intact: Yes Cognition: Normal Orientation: AAOx4 Ji Coma Scale Eye Opening: Spontaneous Ji Coma Scale Verbal: Oriented [place] Coma Scale Motor: Obeys Commands Ji Coma Scale Total: 15 Speech: Normal Motor strength normal: LUE, RUE, LLE, RLE Sensory: Normal - Psychological Associated symptoms: Normal affect, Normal mood - Skin Skin Temperature: Warm Skin Moisture: Dry Skin Color: Normal Course - Vital Signs Vital signs: Temp Pulse Resp BP Pulse Ox 98.6 F 85 14 144/74 H 99 08/08/17 18:47 08/08/17 18:47 08/08/17 18:47 08/08/17 18:47 08/08/17 18:47 - Laboratory Result Diagrams: 08/08/17 19:20 08/08/17 19:20 Laboratory results interpreted by me: 08/08/17 08/08/17 19:20 19:20 RDW 18.1 H Sodium 136.6 L BUN 5 L Discharge - Discharge Clinical Impression: Dizziness Condition: Stable Disposition: HOME, SELF-CARE Instructions: Dizziness ([facility]) Referrals: ARACELI CORTEZ MD [ACTIVE STAFF] - Follow up as needed
[2017-08-08 20:17] VITALS: BP 139/64
[2017-08-08 21:17] LABS: APPEARANCE,URINE SLIGHTLY-CLOUDY; BILIRUBIN,URINE NEGATIVE (NEGATIVE); GLUCOSE, URINE NEGATIVE (NEGATIVE); KETONES,URINE NEGATIVE (NEGATIVE); LEUKOCYTE ESTERASE,URINE NEGATIVE (NEGATIVE); NITRITE,URINE NEGATIVE (NEGATIVE); PROTEIN,URINE NEGATIVE (NEGATIVE); URINE SPECIFIC GRAVITY 1.002; UROBILINOGEN,URINE NEGATIVE mg/dL (<2.0)
== END 2017-08-08 20:45 | disposition home or self-care (01) ==
LOC: ER 18:42
DX: R42 Dizziness and giddiness (principal); R45.0 Nervousness; R10.84 Generalized abdominal pain; J45.909 Unspecified asthma, uncomplicated; Z88.5 Allergy status to narcotic agent; Z88.1 Allergy status to other antibiotic agents; Z88.2 Allergy status to sulfonamides; Z87.892 Personal history of anaphylaxis; Z88.0 Allergy status to penicillin; Z87.19 Personal history of other diseases of the digestive system; Z90.710 Acquired absence of both cervix and uterus
CPT/HCPCS: 36415; 80048; 81001; 85025; 99284

== ENCOUNTER 2017-08-30 19:29 | Emergency (ER) | payer MEDICARE, MEDICAID ==
--- NOTE | 2017-08-30 20:36 | ER Document Report ---
ED General - General Chief Complaint: Constipation Stated Complaint: POSSIBLE CONSTIPATION Time Seen by Provider: 08/30/17 20:35 Notes: Patient is a 66-year-old female who presents emergency department today complaining of constipation the last bowel movement 2 days ago. Patient states that she has been taking milk of magnesia which she took last night has not had a bowel movement. She states that she is passing flatus. Denies any nausea, vomiting, abdominal pain. She also admits to chest wall pain that is tender to touch sharp stabbing pains radiating into her shoulder down her arm and into her finger. States she has been having issues with this on and off for a couple months and she is followed with the orthopedist in the past he was able to relieve her symptoms. Patient states that she was taking Tylenol at home which helps her pain but that it keeps coming back. She does have an extensive allergy list She states she cannot swallow pills TRAVEL OUTSIDE OF THE [place] IN LAST 30 DAYS: No COUNTRY TRAVELED TO/FROM: [place] - Related Data Allergies/Adverse Reactions: Penicillins Allergy (Severe, Verified 08/08/17 18:44) Anaphylaxis Sulfa (Sulfonamide Antibiotics) Allergy (Intermediate, Verified 08/08/17 18:44) iching, nausea ciprofloxacin [From Cipro] Allergy (Mild, Verified 08/08/17 18:44) itching, nausea meperidine HCl [From Demerol] Allergy (Mild, Verified 08/08/17 18:44) heart palpitations Past Medical History - Social History Smoking Status: Unknown if Ever Smoked Family History: Arthritis, CAD, CVA, DM, Hyperlipidemia, Hypertension, Malignancy, Thyroid Disfunction Patient has suicidal ideation: No Patient has homicidal ideation: No Pulmonary Medical History: Reports: Hx Asthma, Hx Pneumonia - 2017 Neurological Medical History: Denies: Hx Cerebrovascular Accident Renal/ Medical History: Denies: Hx Peritoneal Dialysis GI Medical History: Reports: Hx Crohn's Disease, Hx Diverticulitis, Hx Gastroesophageal Reflux Disease, Hx Hiatal Hernia, Hx Irritable Bowel, Hx Ulcer. Denies: Hx Hepatitis Musculoskeltal Medical History: Reports Hx Arthritis, Reports Hx Musculoskeletal Deformity, Reports Hx Musculoskeletal Trauma Psychiatric Medical History: Reports: Hx Anxiety, Hx Depression Infectious Medical History: Denies: Hx Hepatitis Past Surgical History: Reports: Hx Abdominal Surgery - small intestine removal, Hx Appendectomy, Hx Bowel Surgery - small intestine, Hx Breast Surgery - biopsy , Hx Hysterectomy, Hx Neurologic Surgery - brain tumor removed, Hx Tonsillectomy. Denies: Hx Mastectomy, Hx Open Heart Surgery, Hx Pacemaker - Immunizations Immunizations up to date: Yes Hx Diphtheria, Pertussis, Tetanus Vaccination: Yes - 09/2010 Hx Pneumococcal Vaccination: 08/24/10 Review of Systems - Review of Systems Constitutional: No symptoms reported EENT: No symptoms reported Cardiovascular: See HPI Respiratory: No symptoms reported Gastrointestinal: See HPI Genitourinary: No symptoms reported Musculoskeletal: No symptoms reported Neurological/Psychological: No symptoms reported -: Yes All other systems reviewed and negative Physical Exam - Vital signs Vitals: Temp Pulse Resp BP Pulse Ox 98.9 F 75 20 134/82 H 97 08/30/17 19:36 08/30/17 19:36 08/30/17 19:36 08/30/17 19:36 08/30/17 19:36 - Notes Notes: PHYSICAL EXAM GENERAL: Alert, interacts well. LUNGS: Clear to auscultation bilaterally, no wheezes, rales, or rhonchi. No respiratory distress. HEART: Regular rate and rhythm. No murmurs, gallops, or rubs. Chest wall tender to palpation along the left pectoralis muscle group ABDOMEN: Soft, nondistended, nontender. No guarding, rebound, or rigidity.. Bowel sounds present in all 4 quadrants. EXTREMITIES: Moves all 4 extremities spontaneously. No edema, radial and dorsalis pedis pulses 2/4 bilaterally. No cyanosis. NEUROLOGICAL: Alert and oriented x4. Normal speech. PSYCH: Normal affect, normal mood. SKIN: Warm, dry, normal turgor. No rashes or lesions noted. Course - Re-evaluation Re-evalutation: 08/30/17 22:57 Patient is 66-year-old female is well-known to our emergency department. She presents with constipation but no concerns for ileus, obstruction given that patient is unable to tolerate p.o. and able to pass flatus from below benign acute abdomen series findings. Regarding her chest pains consistent with chest wall muscle strain given that her pain is reproducible palpation improved with Tylenol she has had in the past. Low clinical suspicion for ACS given clinical history, exam, EKG without ST elevations or depressions. HEART score less than or equal to 3. PE also seems unlikely given clinical history, absence of tachycardia or dyspnea. Well's score of 0. CXR without evidence of pneumothorax or pneumonia. No widened mediastinum. Aortic dissection also seems unlikely given history, symmetric pulses, CXR, and vitals. At this time will discharge with return precautions and follow-up recommendations. Verbal discharge instructions given a the bedside and opportunity for questions given. Medication warnings reviewed. Patient is in agreement with this plan and has verbalized understanding of return precautions and the need for primary care follow-up in the next 24-72 hours. - Vital Signs Vital signs: Temp Pulse Resp BP Pulse Ox 97.8 F 84 18 148/84 H 100 08/30/17 23:15 08/30/17 23:15 08/30/17 23:15 08/30/17 23:15 08/30/17 23:15 - Diagnostic Test Radiology reviewed: Image reviewed, Reports reviewed - EKG Interpretation by Me EKG shows normal: Sinus rhythm Rate: Normal Rhythm: NSR When compared to previous EKG there are: No significant change Discharge - Discharge Clinical Impression: Constipation Qualifiers: Constipation type: unspecified constipation type Qualified Code(s): K59.00 - Constipation, unspecified Condition: Stable Disposition: HOME, SELF-CARE Additional Instructions: NORMAL EXAM AND WORKUP: At this time, your examination and workup show no significant abnormality. No significant abnormal physical findings are noted. All laboratory, EKG, and imaging (x-ray, CT scans, ultrasound) studies that were ordered show no significant abnormality. Although your examination and all studies that were ordered showed no significant abnormal finding, there are no examinations and no studies that are 100% accurate. There is always the possibility that some abnormality could exist and not be detected with physical examination or within the limits and capabilities of laboratory and other studies. You should return or follow up as you were instructed on your visit today for further evaluation if your symptoms do not resolve. CONSTIPATION: Constipation is a common problem. It is especially likely as you get older. Constipation is a common cause of abdominal pain, but sometimes causes no symptoms at all. Causes of constipation include certain medications, dehydration, diets, inactivity, and low-fiber intake. Rarely, it can be a symptom of underlying disease. The physician has evaluated you for this. Avoid constipation by eating a diet high in fiber, fruits, and vegetables. Drink plenty of liquids. Get regular exercise. If possible, avoid constipating medicines like narcotic pain medication. Some vitamin tablets can cause constipation. Stool softeners may be needed for difficult cases. An excellent stool softener is Konsyl which is available at [employer], and [employer] drug store. Just add a teaspoon to a glass of pineapple or orange juice daily or twice a day if needed. Laxatives are useful for occasional constipation. You should use them only when necessary. Too-frequent use can make your bowels dependent on them. Some over the counter laxatives available without prescription are: Milk of Magnesia, 1-2 tablespoons twice a day Dulcolax, 5 mg pill or 10 mg suppository. Citrate of Magnesia, 4-5 ounces a day for a day or two For acute constipation, Fleet's Enemas and Dulcolax suppositories are helpful. Chronic, half-way use of laxatives or enemas is not a good idea. Your bowel may become dependant on them. You do not need to have a bowel movement every day. Many people do fine with a bowel movement every three or four days. You should call your doctor or return for re-evaluation if you pass blood in the stool, or if you develop fever or increasing abdominal pain. BULK LAXATIVES: Bulk laxatives make the stool softer and bulkier. They're useful for preventing constipation. You can choose between psyllium, methylcellulose, and polycarbophil. They are available without a prescription. Psyllium brand names include Konsyl, Metamucil, Perdiem, Effer-Syllium and Hydrocil. It's available as powder, flavored drink powder, or chewable. The usual dose of psyllium powder is one heaping teaspoon in water each morning, increasing to twice a day if needed. [place] juice can disguise the slightly grainy texture. Methylcellulose is marketed as Citrucel and other brands. The average dose is two grams in a cup of water one to three times a day. Polycarbophil is marketed as Fiber-Con. Take two tablets with a cup of water one to three times a day. LAXATIVE: A laxative agent has been prescribed for your condition. This should result in passage of stool within 12 hours. Some mild intestinal cramping is common as the hard stool begins to move. You may have loose or runny stools for a short time. Contact your doctor if there is severe cramping, vomiting, or passage of blood. Return for further care if this medicine fails to improve your condition. FOLLOW-UP CARE: If you have been referred to a physician for follow-up care, call the physician s office for an appointment as you were instructed or within the next two days. If you experience worsening or a significant change in your symptoms, notify the physician immediately or return to the Emergency Department at any time for re-evaluation. Referrals: SPENCER SANABRIA MD [ACTIVE STAFF] - Follow up as needed
--- NOTE | 2017-08-30 21:24 | RADIOLOGY REPORT (SQ) ---
EXAM DESCRIPTION: ABDOMEN 2 VIEWS COMPLETED DATE/TIME: 08/30/2017 9:15 pm REASON FOR STUDY: constipation COMPARISON: 03/06/2017. NUMBER OF VIEWS: Two views. TECHNIQUE: Supine and erect/decubitus radiographic images of the abdomen acquired. LIMITATIONS: None. FINDINGS: FREE AIR: None. No abnormal gas collections. LUNG BASES: Clear. BOWEL GAS PATTERN: Nonobstructive pattern. Large amount stool throughout. No dilated loops or air f luid levels. CALCIFICATIONS: No suspicious calcifications. SOFT TISSUES: No gross mass or suggestion of organomegaly. HARDWARE: Surgical clips. BONES: No acute fracture. No worrisome bone lesions. OTHER: No other significant finding. IMPRESSION: NO RADIOGRAPHIC EVIDENCE FOR ACUTE ABDOMINAL DISEASE. THERE IS A LARGE AMOUNT OF STOOL THROUGHOUT CONSISTENT WITH CONSTIPATION. TECHNICAL DOCUMENTATION: JOB ID: [id number] [employer]- All Rights Reserved
--- NOTE | 2017-08-30 21:24 | RADIOLOGY REPORT (SQ) ---
EXAM DESCRIPTION: CHEST PA/LAT COMPLETED DATE/TIME: 08/30/2017 9:15 pm REASON FOR STUDY: chest wall pain COMPARISON: 11/22/2016. EXAM PARAMETERS: NUMBER OF VIEWS: two views TECHNIQUE: Digital Frontal and Lateral radiographic views of the chest acquired. RADIATION DOSE: NA LIMITATIONS: none FINDINGS: LUNGS AND PLEURA: No opacities, masses or pneumothorax. No pleural effusion. MEDIASTINUM AND HILAR STRUCTURES: No masses or contour abnormalities. HEART AND VASCULAR STRUCTURES: Heart normal size. No evidence for failure. BONES: No acute findings. HARDWARE: None in the chest. OTHER: No other significant finding. IMPRESSION: NO SIGNIFICANT RADIOGRAPHIC FINDING IN THE CHEST. TECHNICAL DOCUMENTATION: JOB ID: [id number] [employer]- All Rights Reserved
[2017-08-30] MEDS ORDERED: ACETAMINOPHEN SOLN 325 MG/10.15 ML UDCUP PO ONE (21:50)
[2017-08-30] MEDS ORDERED: NA PHOS,M-B/NA PHOS,DI-BA (ADULT) 133 ML ENEMA PR ONE (21:50)
[2017-08-30 23:15] VITALS: BP 148/84
--- NOTE | 2017-08-31 07:48 | EKG REPORT ---
SEVERITY:- NORMAL ECG - SINUS RHYTHM : Confirmed by: Bryant Peña MD 31-Aug-2017 07:47:44
== END 2017-08-30 23:15 | disposition home or self-care (01) ==
LOC: ER 19:29
DX: K59.00 Constipation, unspecified (principal); R07.89 Other chest pain
CPT/HCPCS: 93005; 99284; 74019; 71046; 93010; A9270; J3490

== ENCOUNTER 2017-09-17 18:34 | Emergency (ER) | payer MEDICARE, MEDICAID ==
--- NOTE | 2017-09-17 19:39 | ER Document Report ---
ED General - General Chief Complaint: Abdominal Pain Stated Complaint: ABDOMINAL PAIN Time Seen by Provider: 09/17/17 19:27 Mode of Arrival: Ambulatory Information source: Patient Notes: 66-year-old female presents with complaints of dehydration and hard stools. Patient denies any fevers or chills denies any nausea vomiting or diarrhea notes her stool has been sandpaperlike rough. Patient denies any rectal bleeding. She does note that she saw a primary care physician and was given a prescription for IV fluids. TRAVEL OUTSIDE OF THE [place] IN LAST 30 DAYS: No COUNTRY TRAVELED TO/FROM: [facility] Onset: Other - Has had similar episodes for the past few years Onset/Duration: Intermittent Quality of pain: No pain Severity: Mild Pain Level: Denies Associated symptoms: Other - Patient also notes rash believes bug bites of upper buttocks region Exacerbated by: Denies Relieved by: Denies Similar symptoms previously: Yes Recently seen / treated by doctor: Yes - Related Data Allergies/Adverse Reactions: Penicillins Allergy (Severe, Verified 09/17/17 18:35) Anaphylaxis Sulfa (Sulfonamide Antibiotics) Allergy (Intermediate, Verified 09/17/17 18:35) iching, nausea ciprofloxacin [From Cipro] Allergy (Mild, Verified 09/17/17 18:35) itching, nausea meperidine HCl [From Demerol] Allergy (Mild, Verified 09/17/17 18:35) heart palpitations Past Medical History - Social History Smoking Status: Never Smoker Cigarette use (# per day): No Chew tobacco use (# tins/day): No Smoking Education Provided: No Frequency of alcohol use: None Drug Abuse: None Family History: Arthritis, CAD, CVA, DM, Hyperlipidemia, Hypertension, Malignancy, Thyroid Disfunction Patient has suicidal ideation: No Patient has homicidal ideation: No Pulmonary Medical History: Reports: Hx Asthma, Hx Pneumonia - 2017 Neurological Medical History: Denies: Hx Cerebrovascular Accident Renal/ Medical History: Denies: Hx Peritoneal Dialysis GI Medical History: Reports: Hx Crohn's Disease, Hx Diverticulitis, Hx Gastroesophageal Reflux Disease, Hx Hiatal Hernia, Hx Irritable Bowel, Hx Ulcer. Denies: Hx Hepatitis Musculoskeltal Medical History: Reports Hx Arthritis, Reports Hx Musculoskeletal Deformity, Reports Hx Musculoskeletal Trauma Psychiatric Medical History: Reports: Hx Anxiety, Hx Depression Infectious Medical History: Denies: Hx Hepatitis Past Surgical History: Reports: Hx Abdominal Surgery - small intestine removal, Hx Appendectomy, Hx Bowel Surgery - small intestine, Hx Breast Surgery - biopsy , Hx Hysterectomy, Hx Neurologic Surgery - brain tumor removed, Hx Tonsillectomy. Denies: Hx Mastectomy, Hx Open Heart Surgery, Hx Pacemaker - Immunizations Immunizations up to date: Yes Hx Diphtheria, Pertussis, Tetanus Vaccination: Yes - 09/2010 Hx Pneumococcal Vaccination: 08/24/10 Review of Systems - Review of Systems Notes: REVIEW OF SYSTEMS: CONSTITUTIONAL : Denies fever, chills, or sweats. Denies recent illness. EENT: Denies eye, ear, throat, or mouth pain or symptoms. Denies nasal or sinus congestion or discharge. Denies throat, tongue, or mouth swelling or difficulty swallowing. CARDIOVASCULAR: Denies chest pain. Denies palpitations or racing or irregular heart beat. Denies ankle edema. RESPIRATORY: Denies cough, cold, or chest congestion. Denies shortness of breath, difficulty breathing, or wheezing. GASTROINTESTINAL: Admits to dry stools. GENITOURINARY: Denies difficulty urinating, painful urination, burning, frequency, blood in urine, or discharge. MUSCULOSKELETAL: Denies back or neck pain or stiffness. Denies joint pain or swelling. SKIN: Admits to 2 bites on upper buttocks HEMATOLOGIC : Denies easy bruising or bleeding. LYMPHATIC: Denies swollen, enlarged glands. NEUROLOGICAL: Denies confusion or altered mental status. Denies passing out or loss of consciousness. Denies dizziness or lightheadedness. Denies headache. Denies weakness or paralysis or loss of use of either side. Denies problems with gait or speech. Denies sensory loss, numbness, or tingling. Denies seizures. PSYCHIATRIC: Denies anxiety or stress. Denies depression, suicidal ideation, or homicidal ideation. ALL OTHER SYSTEMS REVIEWED AND NEGATIVE. Dictation was performed using [employer] voice recognition software PHYSICAL EXAMINATION: GENERAL: Well-appearing, well-nourished and in no acute distress. HEAD: Atraumatic, normocephalic. EYES: Pupils equal round and reactive to light, extraocular movements intact, sclera anicteric, conjunctiva are normal. ENT: Nares patent, oropharynx clear without exudates. Moist mucous membranes. NECK: Normal range of motion, supple without lymphadenopathy LUNGS: Breath sounds clear to auscultation bilaterally and equal. No wheezes rales or rhonchi. HEART: Regular rate and rhythm without murmurs ABDOMEN: Soft, nontender, nondistended abdomen. No guarding, no rebound. No masses appreciated. Total examination performed with nurse Fung in the room, soft stools noted at the rectum and external anus, Musculoskeletal: Normal range of motion, no pitting or edema. No cyanosis. NEUROLOGICAL: Cranial nerves grossly intact. Normal speech, normal gait. Normal sensory, motor exams PSYCH: Anxious SKIN: Superficial ulceration 2 at the sacral region no cellulitic component noted no abscess no drainage Physical Exam - Vital signs Vitals: Temp Pulse Resp BP Pulse Ox 98.0 F 72 18 133/71 H 97 09/17/17 18:39 09/17/17 18:39 09/17/17 18:39 09/17/17 18:39 09/17/17 18:39 Course - Re-evaluation Re-evalutation: 09/17/17 20:07 Patient's vital signs are stable she does not meet criteria for any type of IV fluids, the note from the physician states the patient is complaining of feeling dehydrated and an attempt to appease her it appears he had been in for IV fluids. This is a similar complaint that the patient has all the time. Place an IV and given IV fluids would be inappropriate at this time Antibiotic ointment has been given to the patient the place on her superficial ulcerations which appeared to have been picked that which the patient constantly picks that while in the room. Otherwise she is in no distress will be discharged home to follow-up with her primary care physician for further evaluation care with return immediately if there are any other concerns After performing a Medical Screening Examination, I estimate there is LOW risk for ACUTE APPENDICITIS, BOWEL OBSTRUCTION, ACUTE CHOLECYSTITIS, PERFORATED DIVERTICULITIS, INCARCERATED HERNIA, PANCREATITIS, PELVIC INFLAMMATORY DISEASE, PERFORATED ULCER, ECTOPIC , or TUBO-OVARIAN ABSCESS, thus I consider the discharge disposition reasonable. Also, there is no evidence or peritonitis , sepsis, or toxicity. I have reevaluated this patient multiple times and no significant life threatening changes are noted. The patient and I have discussed the diagnosis and risks, and we agree with discharging home with close follow-up with the understanding that symptoms and presentations can change. We also discussed returning to the Emergency Department immediately if new or worsening symptoms occur. We have discussed the symptoms which are most concerning (e.g., bloody stool, fever, changing or worsening pain, vomiting) that necessitate immediate return. - Vital Signs Vital signs: Temp Pulse Resp BP Pulse Ox 98.0 F 72 18 133/71 H 97 09/17/17 18:39 09/17/17 18:39 09/17/17 18:39 09/17/17 18:39 09/17/17 18:39 Discharge - Discharge Clinical Impression: Constipation Qualifiers: Constipation type: other constipation type Qualified Code(s): K59.09 - Other constipation Bug bite Qualifiers: Encounter type: initial encounter Qualified Code(s): W57.XXXA - Bitten or stung by nonvenomous insect and other nonvenomous arthropods, initial encounter Condition: Stable Disposition: HOME, SELF-CARE Instructions: Dressing Instructions for Open Wounds ([facility]), Wound Infection ([facility] ) Additional Instructions: Your vital signs today did not show any signs of dehydration, he looks well, there is obvious stool your rectum, you will be discharged home with follow-up with your primary care physician Please continue hydrating well in place topical antibiotic ointment on wound on back
[2017-09-17 20:45] VITALS: BP 129/74
== END 2017-09-17 19:45 | disposition home or self-care (01) ==
LOC: ER 18:34
DX: K59.00 Constipation, unspecified (principal); S30.860A Insect bite (nonvenomous) of lower back and pelvis, initial encounter; W57.XXXA Bitten or stung by nonvenomous insect and other nonvenomous arthropods, initial encounter; L98.499 Non-pressure chronic ulcer of skin of other sites with unspecified severity; J45.909 Unspecified asthma, uncomplicated; Z88.2 Allergy status to sulfonamides; Z88.1 Allergy status to other antibiotic agents; Z88.5 Allergy status to narcotic agent; Z87.892 Personal history of anaphylaxis; Z88.0 Allergy status to penicillin
CPT/HCPCS: 99283

== ENCOUNTER 2017-09-20 18:59 | Observation (INO) | payer MEDICARE, MEDICAID ==
--- NOTE | 2017-09-20 21:25 | RADIOLOGY REPORT (SQ) ---
EXAM DESCRIPTION: CT HEAD WITHOUT COMPLETED DATE/TIME: 09/20/2017 9:14 pm REASON FOR STUDY: FALL/HEADACHE E86.0 DEHYDRATION R55 SYNCOPE AND COLLAPSE COMPARISON: 2017 TECHNIQUE: Axial images acquired through the brain without intravenous contrast. Images reviewed wi th bone, brain and subdural windows. Images stored on PACS. All CT scanners at this facility use dose modulation, iterative reconstruction, and/or weight based d osing when appropriate to reduce radiation dose to as low as reasonably achievable (ALARA). [facility]: Dose Right [facility]: CareDose [facility]: Dose Right [facility]: Teradose 4D [facility]: Smart Couchsurfing RADIATION DOSE: CT Rad equipment meets quality standard of care and radiation dose reduction techniq ues were employed. CTDIvol: 64.6 mGy. DLP: 1163 mGy-cm. mGy. LIMITATIONS: None. FINDINGS: VENTRICLES: Normal size and contour. CEREBRUM: No masses. No hemorrhage. No midline shift. No evidence for acute infarction. Normal gra y/white matter differentiation. No areas of low density in the white matter. CEREBELLUM: No masses. No hemorrhage. No alteration of density. No evidence for acute infarction. EXTRAAXIAL SPACES: No fluid collections. No masses. ORBITS AND GLOBE: No intra- or extraconal masses. Normal contour of globe without masses. CALVARIUM: No fracture. PARANASAL SINUSES: No fluid or mucosal thickening. SOFT TISSUES: No mass or hematoma. OTHER: No other significant finding. IMPRESSION: NORMAL BRAIN CT WITHOUT CONTRAST. EVIDENCE OF ACUTE STROKE: NO. COMMENT: Quality ID # [id number]: Final reports with documentation of one or more dose reduction techniques (e.g., Automated exposure control, adjustment of the mA and/or kV according to patient size, use of iterative reconstruction technique) TECHNICAL DOCUMENTATION: JOB ID: [id number] [employer]- All Rights Reserved
--- NOTE | 2017-09-20 21:26 | RADIOLOGY REPORT (SQ) ---
EXAM DESCRIPTION: CHEST PA/LAT COMPLETED DATE/TIME: 09/20/2017 9:09 pm REASON FOR STUDY: FALL/HEADACHE COMPARISON: 08/30/2017 TECHNIQUE: Frontal and lateral radiographic views of the chest acquired. NUMBER OF VIEWS: Two view. LIMITATIONS: None. FINDINGS: LUNGS AND PLEURA: No opacities, masses or pneumothorax. No pleural effusion. MEDIASTINUM AND HILAR STRUCTURES: No masses or contour abnormalities. HEART AND VASCULAR STRUCTURES: Heart normal size. No evidence for failure. BONES: No acute findings. HARDWARE: None in the chest. OTHER: No other significant finding. IMPRESSION: NO SIGNIFICANT RADIOGRAPHIC FINDING IN THE CHEST. TECHNICAL DOCUMENTATION: JOB ID: [id number] [employer]- All Rights Reserved
[2017-09-20 23:56] LABS: ABSOLUTE EOSINOPHILS # (AUTO) 0.2 10^3/uL (0.0-0.6); ABSOLUTE MONOCYTES (AUTO) 0.7 10^3/uL (0.1-1.4); ABSOLUTE NEUT (AUTO) 6.1 10^3/uL (1.7-8.2); BASOPHILS % (AUTO) 0.5 % (0-2); EOSINOPHILS % (AUTO) 2.1 % (0-6); HEMATOCRIT 35.3 % (36.0-47.0); MEAN CORPUSCULAR HEMOGLOBIN 31.7 pg (27.0-33.4); MEAN CORPUSCULAR HGB CONC 34.1 g/dL (32.0-36.0); MEAN CORPUSCULAR VOLUME 93 fl (80-97); MONOCYTES % (AUTO) 7.7 % (3-13); PLATELET COUNT 405 10^3/uL (150-450); RED BLOOD COUNT 3.79 10^6/uL (3.72-5.28); RED CELL DISTRIBUTION WIDTH 16.7 % (11.5-14.0); SEGMENTED NEUTROPHILS % (AUTO) 67.7 % (42-78); TOTAL CELLS COUNTED % (AUTO) 100 %
[2017-09-21 00:08] LABS: ALANINE AMINOTRANSFERASE 19 U/L (9-52); ALBUMIN 3.7 g/dL (3.5-5.0); ALKALINE PHOSPHATASE 62 U/L (38-126); ANION GAP 5 (5-19); ASPARTATE AMINO TRANSFERASE 23 U/L (14-36); BILIRUBIN,DIRECT 0.2 mg/dL (0.0-0.4); BILIRUBIN,TOTAL 0.3 mg/dL (0.2-1.3); BLOOD UREA NITROGEN 7 mg/dL (7-20); CALCIUM 8.9 mg/dL (8.4-10.2); CARBON DIOXIDE 30 mmol/L (22-30); CHLORIDE 104 mmol/L (98-107); GLUCOSE 85 mg/dL (75-110); POTASSIUM 3.8 mmol/L (3.6-5.0); SODIUM 139.4 mmol/L (137-145); TOTAL PROTEIN 6.5 g/dL (6.3-8.2)
[2017-09-21] MEDS: DEXTROSE 5%-NORMAL SALINE 1,000 ML IV PRN ×3 (00:15→21:28)
[2017-09-21 02:41] LABS: APPEARANCE,URINE CLEAR; BILIRUBIN,URINE NEGATIVE (NEGATIVE); COLOR,URINE STRAW; GLUCOSE, URINE NEGATIVE (NEGATIVE); KETONES,URINE NEGATIVE (NEGATIVE); LEUKOCYTE ESTERASE,URINE NEGATIVE (NEGATIVE); NITRITE,URINE NEGATIVE (NEGATIVE); PROTEIN,URINE NEGATIVE (NEGATIVE); URINE SPECIFIC GRAVITY 1.005; UROBILINOGEN,URINE NEGATIVE mg/dL (<2.0)
[2017-09-21] MEDS ORDERED: INFLUENZA ADLT QUAD (36MOS+) 2017-18 VAC 0.5 ML SYR IM PRN (12:29)
[2017-09-21] MEDS ORDERED: MECLIZINE HCL 25 MG TABLET PO PRN (16:52)
[2017-09-21] MEDS ORDERED: ALBUTEROL SULFATE HFA (90 MCG/PUFF) 8 GM MDI (1 MDI/ER DISP) IH PRN (16:52)
--- NOTE | 2017-09-21 17:01 | PDOC H&P ---
History of Present Illness Admission Date/PCP: 09/20/17 19:18 ARACELI CORTEZ MD History of Present Illness: MICHAEL CAMEJO is a 66 year old female, she came to the office for evaluation of a headache, she fell at home and sustained injury to the forehead, she said she fell because she was dehydrated, she said she had loose stool and that made her to be dehydrated.. She also complained of the rash in the gluteal fold, she thought the rash is herpes rash. She was brought in for observation and management of her symptoms Past Medical History Pulmonary Medical History: Reports: Asthma, Bronchitis, Pneumonia GI Medical History: Reports: Crohn's Disease, Diverticulitis, Gastroesophageal Reflux Disease, Hiatal Hernia Musculoskeltal Medical History: Reports: Arthritis Hematology: Reports: Anemia Past Surgical History Past Surgical History: Reports: Appendectomy, Hysterectomy, Tonsillectomy Social History Smoking Status: Never Smoker Frequency of Alcohol Use: None Hx Recreational Drug Use: No Drugs: None Hx Prescription Drug Abuse: No - Advance Directive Resuscitation Status: Full Code Family History Family History: Arthritis, CAD, CVA, DM, Hyperlipidemia, Hypertension, Malignancy, Thyroid Disfunction Parental Family History Reviewed: Yes Children Family History Reviewed: Yes Sibling(s) Family History Reviewed.: Yes Medication/Allergy Home Medications: Acetaminophen with Codeine [Acetaminophen-Cod #3 Tablet] 1 tab PO Q8HP PRN 09/21 Albuterol Sulfate [Ventolin HFA MDI 18 GM] 2 puff IH Q4HP PRN 09/21/17 Alprazolam [Xanax 0.5 mg Tablet] 0.5 mg PO Q12 09/21/17 Cyanocobalamin (Vitamin B-12) [Vitamin B-12 Inj 1000 Mcg/1 ml Vial] 1,000 mcg IM Q14D 09/21/17 Dexlansoprazole [Dexilant 60 mg Capsule] 60 mg PO DAILY 09/21/17 Diltiazem HCl [Cardizem Cd 120 mg Capsule] 120 mg PO DAILY 09/21/17 Furosemide [Lasix 20 mg Tablet] 10 mg PO DAILY 09/21/17 Ibandronate Sodium [Boniva] 150 mg PO [id number] 09/21/17 Iron Polysaccharide Complex [Ferrex 150] 150 mg PO DAILY 09/21/17 Meclizine HCl [Antivert 25 mg Tablet] 25 mg PO Q8HP PRN 09/21/17 Allergies/Adverse Reactions: Penicillins Allergy (Severe, Verified 09/17/17 18:35) Anaphylaxis Sulfa (Sulfonamide Antibiotics) Allergy (Intermediate, Verified 09/17/17 18:35) iching, nausea ciprofloxacin [From Cipro] Allergy (Mild, Verified 09/17/17 18:35) itching, nausea meperidine HCl [From Demerol] Allergy (Mild, Verified 09/17/17 18:35) heart palpitations Review of Systems Constitutional: PRESENT: headache(s) Eyes: ABSENT: visual disturbances Ears: ABSENT: hearing changes Cardiovascular: ABSENT: chest pain, dyspnea on exertion, edema, orthropnea, palpitations Respiratory: ABSENT: cough, hemoptysis Gastrointestinal: PRESENT: diarrhea Genitourinary: ABSENT: dysuria, hematuria Musculoskeletal: ABSENT: joint swelling Integumentary: ABSENT: rash, wounds Neurological: ABSENT: abnormal gait, abnormal speech, confusion, dizziness, focal weakness, syncope Psychiatric: ABSENT: anxiety, depression, homidical ideation, suicidal ideation Endocrine: ABSENT: cold intolerance, heat intolerance, menstrual abnormalities, polydipsia, polyuria Hematologic/Lymphatic: ABSENT: easy bleeding, easy bruising, lymphadenopathy Physical Exam Vital Signs: Temp Pulse Resp BP Pulse Ox 98.0 F 67 18 130/66 H 98 09/21/17 06:24 09/21/17 06:24 09/21/17 06:24 09/21/17 06:24 09/21/17 06:24 General appearance: PRESENT: no acute distress, well-developed, well-nourished Head exam: PRESENT: atraumatic, normocephalic Eye exam: PRESENT: conjunctiva pink, EOMI, PERRLA Ear exam: PRESENT: normal external ear exam Mouth exam: PRESENT: dry mucosa, tongue midline Neck exam: PRESENT: full ROM Respiratory exam: PRESENT: clear to auscultation franky Cardiovascular exam: PRESENT: RRR, +S1, +S2 Pulses: PRESENT: normal dorsalis pedis pul, +2 pedal pulses bilateral Vascular exam: PRESENT: normal capillary refill GI/Abdominal exam: PRESENT: normal bowel sounds, soft Rectal exam: PRESENT: deferred Neurological exam: PRESENT: alert, awake, oriented to person, oriented to place , oriented to time, oriented to situation, CN II-XII grossly intact Psychiatric exam: PRESENT: appropriate affect, normal mood Skin exam: PRESENT: dry, intact, warm Results Laboratory Results: 09/20/17 23:45 09/20/17 23:45 09/20/17 09/20/17 09/21/17 23:45 23:45 01:11 WBC 9.0 RBC 3.79 Hgb 12.0 Hct 35.3 L MCV 93 MCH 31.7 MCHC 34.1 RDW 16.7 H Plt Count 405 Seg Neutrophils % 67.7 Lymphocytes % 22.0 Monocytes % 7.7 Eosinophils % 2.1 Basophils % 0.5 Absolute Neutrophils 6.1 Absolute Lymphocytes 2.0 Absolute Monocytes 0.7 Absolute Eosinophils 0.2 Absolute Basophils 0.0 Sodium 139.4 Potassium 3.8 Chloride 104 Carbon Dioxide 30 Anion Gap 5 BUN 7 Creatinine 0.62 Est GFR ( Amer) > 60 Est GFR (Non-Af Amer) > 60 Glucose 85 Calcium 8.9 Total Bilirubin 0.3 AST 23 ALT 19 Alkaline Phosphatase 62 Total Protein 6.5 Albumin 3.7 Urine Color STRAW Urine Appearance CLEAR Urine pH 7.0 Ur Specific [place] 1.005 Urine Protein NEGATIVE Urine Glucose (UA) NEGATIVE Urine Ketones NEGATIVE Urine Blood NEGATIVE Urine Nitrite NEGATIVE Ur Leukocyte Esterase NEGATIVE Urine WBC (Auto) 0 Urine RBC (Auto) 1 Impressions: Chest X-Ray 09/20/17 00:00 IMPRESSION: NO SIGNIFICANT RADIOGRAPHIC FINDING IN THE CHEST. Head CT 09/20/17 00:00 IMPRESSION: NORMAL BRAIN CT WITHOUT CONTRAST. EVIDENCE OF ACUTE STROKE: NO. Assessment & Plan - Diagnosis (1) Dehydration Is this a current diagnosis for this admission?: Yes Plan: Patient brought in for hydration and observation
[2017-09-21] MEDS ORDERED: CYANOCOBALAMIN (VITAMIN B-12) INJ 1000 MCG/1 ML VIAL IM ONE (18:00)
[2017-09-21] MEDS: DILTIAZEM HCL 120 MG CAP.SR.24H PO SCH (18:40)
[2017-09-21] MEDS: ACYCLOVIR 5% OINTMENT 15 GM TP SCH (18:40)
[2017-09-21] MEDS: ALPRAZOLAM 0.5 MG TABLET PO SCH (21:46)
[2017-09-21] MEDS ORDERED: CYANOCOBALAMIN (VITAMIN B-12) INJ 1000 MCG/1 ML VIAL IM SCH (22:00)
[2017-09-21] MEDS ORDERED: IRON POLYSACCHARIDES COMPLEX 150 MG CAPSULE PO SCH (22:00)
[2017-09-21] MEDS: ACETAMINOPHEN WITH CODEINE #3 TABLET PO PRN (22:06)
[2017-09-22] MEDS ORDERED: LANSOPRAZOLE 30 MG TAB.RAP.DR PO SCH (06:00)
[2017-09-22] MEDS: ACETAMINOPHEN WITH CODEINE #3 TABLET PO PRN ×2 (06:57→15:18)
[2017-09-22] MEDS: DEXTROSE 5%-NORMAL SALINE 1,000 ML IV PRN ×2 (06:58→15:18)
[2017-09-22] MEDS: ALPRAZOLAM 0.5 MG TABLET PO SCH (09:43)
[2017-09-22] MEDS: ACYCLOVIR 5% OINTMENT 15 GM TP SCH ×2 (09:44→18:38)
[2017-09-22 17:32] VITALS: BP 148/79
[2017-09-22] MEDS: DILTIAZEM HCL 120 MG CAP.SR.24H PO SCH (18:39)
--- NOTE | 2017-09-22 20:56 | PDOC DISCHARGE SUMMARY ---
General - Admit/Disc Date/PCP Admission Date/Primary Care Provider: 09/20/17 19:18 ARACELI CORTEZ MD Discharge Date: 09/22/17 - Discharge Diagnosis (1) Dehydration Is this a current diagnosis for this admission?: Yes - Additional Information Resuscitation Status: Full Code Discharge Diet: As Tolerated Discharge Activity: Activity As Tolerated Home Medications: Acetaminophen with Codeine [Acetaminophen-Cod #3 Tablet] 1 tab PO Q8HP PRN 09/21 Albuterol Sulfate [Ventolin HFA MDI 18 GM] 2 puff IH Q4HP PRN 09/21/17 Alprazolam [Xanax 0.5 mg Tablet] 0.5 mg PO Q12 09/21/17 Cyanocobalamin (Vitamin B-12) [Vitamin B-12 Inj 1000 Mcg/1 ml Vial] 1,000 mcg IM Q14D 09/21/17 Dexlansoprazole [Dexilant 60 mg Capsule] 60 mg PO DAILY 09/21/17 Diltiazem HCl [Cardizem Cd 120 mg Capsule] 120 mg PO DAILY 09/21/17 Furosemide [Lasix 20 mg Tablet] 10 mg PO DAILY 09/21/17 Ibandronate Sodium [Boniva] 150 mg PO [id number] 09/21/17 Iron Polysaccharide Complex [Ferrex 150] 150 mg PO DAILY 09/21/17 Meclizine HCl [Antivert 25 mg Tablet] 25 mg PO Q8HP PRN 09/21/17 Acyclovir [Zovirax 200 mg Capsule] 200 mg PO TID #21 capsule 09/23/17 Acyclovir [Zovirax 5% Ointment 30 gm] 1 applic TP QID #1 tube 09/23/17 History of Present Illness History of Present Illness: MICHAEL CAMEJO is a 66 year old female, she came to the office for evaluation of a headache, she fell at home and sustained injury to the forehead, she said she fell because she was dehydrated, she said she had loose stool and that made her to be dehydrated.. She also complained of the rash in the gluteal fold, she thought the rash is herpes rash. She was brought in for observation and management of her symptoms Hospital Course Hospital Course: She was admitted for the management of dehydration, she came in for observation , she was treated with IV fluid with improvement in her symptoms Physical Exam Vital Signs: Temp Pulse Resp BP Pulse Ox 98.4 F 91 17 148/79 H 100 09/22/17 17:27 09/22/17 17:27 09/22/17 17:27 09/22/17 17:27 09/22/17 17:27 Intake & Output 09/21/17 09/22/17 09/23/17 06:59 06:59 06:59 Weight 55.1 kg General appearance: PRESENT: no acute distress, well-developed, well-nourished Head exam: PRESENT: atraumatic, normocephalic Eye exam: PRESENT: conjunctiva pink, EOMI, PERRLA. ABSENT: scleral icterus Ear exam: PRESENT: normal external ear exam Mouth exam: PRESENT: moist, tongue midline Neck exam: PRESENT: full ROM Respiratory exam: PRESENT: clear to auscultation franky Cardiovascular exam: PRESENT: RRR, +S1, +S2 Pulses: PRESENT: normal dorsalis pedis pul, +2 pedal pulses bilateral Vascular exam: PRESENT: normal capillary refill GI/Abdominal exam: PRESENT: normal bowel sounds, soft Rectal exam: PRESENT: deferred Neurological exam: PRESENT: alert, awake, oriented to person, oriented to place , oriented to time, oriented to situation, CN II-XII grossly intact. ABSENT: motor sensory deficit Psychiatric exam: PRESENT: appropriate affect, normal mood Skin exam: PRESENT: dry, intact, warm Results Laboratory Results: 09/20/17 23:45 09/20/17 23:45 Impressions: Chest X-Ray 09/20/17 00:00 IMPRESSION: NO SIGNIFICANT RADIOGRAPHIC FINDING IN THE CHEST. Head CT 09/20/17 00:00 IMPRESSION: NORMAL BRAIN CT WITHOUT CONTRAST. EVIDENCE OF ACUTE STROKE: NO.
== END 2017-09-22 19:40 | disposition home or self-care (01) ==
LOC: ER 18:59 → EH 19:18 → 2S 09-21 08:29
PROVIDERS: ADMIT Internal Medicine; ATTEND Internal Medicine
DX: E86.0 Dehydration (principal); R51 Headache; S09.90XA Unspecified injury of head, initial encounter; W19.XXXA Unspecified fall, initial encounter; Y92.009 Unspecified place in unspecified non-institutional (private) residence as the place of occurrence of the external cause; R21 Rash and other nonspecific skin eruption; R19.7 Diarrhea, unspecified; K21.9 Gastro-esophageal reflux disease without esophagitis; J45.909 Unspecified asthma, uncomplicated; D64.9 Anemia, unspecified; Z79.899 Other long term (current) drug therapy; Z90.49 Acquired absence of other specified parts of digestive tract; Z90.710 Acquired absence of both cervix and uterus; Z82.49 Family history of ischemic heart disease and other diseases of the circulatory system; Z28.21 Immunization not carried out because of patient refusal
CPT/HCPCS: 99283; 36415; 87040 ×2; 85025; 80076; 80048; 81001; 71046; 70450; G0378 ×3; G0379; G0008; A9270 ×10; J3420; 90471; 90686; J3490

== ENCOUNTER 2017-09-22 23:23 | Emergency (ER) | payer MEDICARE, MEDICAID ==
[2017-09-23] MEDS ORDERED: INFLUENZA ADLT QUAD (36MOS+) 2017-18 VAC 0.5 ML SYR IM ONE (02:04)
--- NOTE | 2017-09-23 02:43 | ER Document Report ---
ED Flu Like - General Chief Complaint: Flu Symptoms Stated Complaint: FLU SHOT Time Seen by Provider: 09/23/17 02:02 Mode of Arrival: Ambulatory Information source: Patient Notes: Patient is a 66-year-old female who is very well-known to this emergency department who presents to the ER today after just being discharged from the hospital today for dehydration, stating "they did give him a flu shot while I was here." Patient also complains of a herpes outbreak to her buttocks. She states that this happens sometimes and that she needs Zovirax cream and pills to get rid of it. She also wants vitamin B12 shots today. TRAVEL OUTSIDE OF THE [place] IN LAST 30 DAYS: No - Related Data Allergies/Adverse Reactions: Penicillins Allergy (Severe, Verified 09/23/17 00:28) Anaphylaxis Sulfa (Sulfonamide Antibiotics) Allergy (Intermediate, Verified 09/23/17 00:28) iching, nausea ciprofloxacin [From Cipro] Allergy (Mild, Verified 09/23/17 00:28) itching, nausea meperidine HCl [From Demerol] Allergy (Mild, Verified 09/23/17 00:28) heart palpitations Past Medical History - General Information source: Patient - Social History Smoking Status: Unknown if Ever Smoked Family History: Arthritis, CAD, CVA, DM, Hyperlipidemia, Hypertension, Malignancy, Thyroid Disfunction Patient has suicidal ideation: No Patient has homicidal ideation: No - Past Medical History Cardiac Medical History: Denies: Hx Congestive Heart Failure, Hx Heart Attack, Hx Hypertension Pulmonary Medical History: Reports: Hx Asthma, Hx Bronchitis, Hx Pneumonia Denies: Hx COPD, Hx Tuberculosis Neurological Medical History: Denies: Hx Cerebrovascular Accident, Hx Seizures Renal/ Medical History: Denies: Hx End Stage Renal Disease, Hx Kidney Stones, Hx Peritoneal Dialysis GI Medical History: Reports: Hx Crohn's Disease, Hx Diverticulitis, Hx Gastroesophageal Reflux Disease, Hx Hiatal Hernia, Hx Irritable Bowel. Denies: Hx Cirrhosis, Hx Ulcer Musculoskeltal Medical History: Reports Hx Arthritis, Denies Hx Multiple Sclerosis, Reports Hx Musculoskeletal Deformity, Reports Hx Musculoskeletal Trauma Psychiatric Medical History: Reports: Hx Anxiety Denies: Hx Bipolar Disorder, Hx Depression, Hx Schizophrenia Past Surgical History: Reports: Hx Abdominal Surgery - small intestine removal, Hx Appendectomy, Hx Bowel Surgery - small intestine, Hx Breast Surgery - biopsy , Hx Hysterectomy, Hx Neurologic Surgery - brain tumor removed, Hx Tonsillectomy. Denies: Hx Open Heart Surgery - Immunizations Immunizations up to date: Yes Hx Diphtheria, Pertussis, Tetanus Vaccination: Yes - 09/2010 Hx Pneumococcal Vaccination: 08/24/10 Review of Systems - Review of Systems Constitutional: No symptoms reported EENT: No symptoms reported Cardiovascular: No symptoms reported Respiratory: No symptoms reported Gastrointestinal: No symptoms reported Genitourinary: No symptoms reported Female Genitourinary: No symptoms reported Musculoskeletal: No symptoms reported Skin: See HPI Hematologic/Lymphatic: No symptoms reported Neurological/Psychological: No symptoms reported Physical Exam - Vital signs Vitals: Temp Pulse Resp BP Pulse Ox 98.4 F 89 18 127/68 H 99 09/23/17 00:32 09/23/17 00:32 09/23/17 00:32 09/23/17 00:32 09/23/17 00:32 - Notes Notes: PHYSICAL EXAMINATION: GENERAL: Well-appearing and in no acute distress. HEAD: Atraumatic, normocephalic. EYES: Pupils equal round and reactive to light, extraocular movements intact, sclera anicteric, conjunctiva are normal. NECK: Normal range of motion, supple without lymphadenopathy LUNGS: CTAB and equal. No wheezes rales or rhonchi. HEART: Regular rate and rhythm without murmurs ABDOMEN: Soft, no tenderness. No guarding, no rebound EXTREMITIES: Normal range of motion, no pitting edema. No cyanosis. NEUROLOGICAL: Cranial nerves grossly intact. Normal sensory/motor exams. PSYCH: Normal mood, normal affect. SKIN: Warm, Dry, normal turgor, small ulcerations with some erythema to upper right buttocks Course - Vital Signs Vital signs: Temp Pulse Resp BP Pulse Ox 98.4 F 75 18 125/74 97 09/23/17 00:32 09/23/17 02:52 09/23/17 02:52 09/23/17 02:52 09/23/17 02:52 Discharge - Discharge Clinical Impression: Needs flu shot, Herpes dermatitis Condition: Stable Disposition: HOME, SELF-CARE Additional Instructions: Return immediately for any new or worsening symptoms. Follow up with primary care provider, call tomorrow to make followup appointment. Prescriptions: Acyclovir [Zovirax 200 mg Capsule] 200 mg PO TID #21 capsule Acyclovir [Zovirax 5% Ointment 30 gm] 1 applic TP QID #1 tube
[2017-09-23 02:57] VITALS: BP 125/74
== END 2017-09-23 02:52 | disposition home or self-care (01) ==
LOC: ER 23:23
DX: B00.89 Other herpesviral infection (principal); A60.1 Herpesviral infection of perianal skin and rectum
CPT/HCPCS: 99283; 90686; G0008; 90471

== ENCOUNTER 2017-10-11 14:28 | Emergency (ER) | payer MEDICAID, MEDICARE ==
[2017-10-11 14:48] VITALS: BP 117/71
[2017-10-11] MEDS ORDERED: DICYCLOMINE HCL 20 MG TABLET PO ONE (14:57)
--- NOTE | 2017-10-11 15:04 | ER Document Report ---
ED Medical Screen (RME) - General Chief Complaint: Abdominal Pain >50 Stated Complaint: ABDOMINAL PAIN Time Seen by Provider: 10/11/17 14:45 Notes: Patient is a 66 year old female who frequently visits this emergency department and a history of diverticulitis and IBS reports to the emergency department complaining of generalized abdominal pain worsening the last 4 days. Patient also mentions pain with defecation and urination which she describes as sandpaper "down there". Patient states that she has had blood in her stool intermittently the last few weeks and diarrhea just prior to arrival. Patient denies any constipation, stress or vomiting. Patient has frequently visited the emergency department for similar symptoms. Patient states he PCP was Dr. Paz but is now Dr. Aguila. TRAVEL OUTSIDE OF THE [place] IN LAST 30 DAYS: No COUNTRY TRAVELED TO/FROM: [place] - Related Data Allergies/Adverse Reactions: Penicillins Allergy (Severe, Verified 10/11/17 14:29) Anaphylaxis Sulfa (Sulfonamide Antibiotics) Allergy (Intermediate, Verified 10/11/17 14:29) iching, nausea ciprofloxacin [From Cipro] Allergy (Mild, Verified 10/11/17 14:29) itching, nausea meperidine HCl [From Demerol] Allergy (Mild, Verified 10/11/17 14:29) heart palpitations Past Medical History - General Information source: Patient - Social History Frequency of alcohol use: None Drug Abuse: None Family history: Reviewed & Not Pertinent Pulmonary Medical History: Reports: Hx Asthma, Hx Bronchitis, Hx Pneumonia GI Medical History: Reports: Hx Crohn's Disease, Hx Diverticulitis, Hx Gastroesophageal Reflux Disease, Hx Hiatal Hernia, Hx Irritable Bowel Musculoskeltal Medical History: Reports Hx Arthritis, Reports Hx Musculoskeletal Deformity, Reports Hx Musculoskeletal Trauma Psychiatric Medical History: Reports: Hx Anxiety Past Surgical History: Reports: Hx Abdominal Surgery - small intestine removal, Hx Appendectomy, Hx Bowel Surgery - small intestine, Hx Breast Surgery - biopsy , Hx Hysterectomy, Hx Neurologic Surgery - brain tumor removed, Hx Tonsillectomy - Immunizations Immunizations up to date: Yes Hx Diphtheria, Pertussis, Tetanus Vaccination: Yes - 09/2010 History of Influenza Vaccine for 05/2017 - 10/2017 Season: No Review of Systems - Review of Systems Constitutional: No symptoms reported EENT: No symptoms reported Cardiovascular: No symptoms reported Respiratory: No symptoms reported Gastrointestinal: See HPI, Abdominal pain, Nausea Genitourinary: See HPI Female Genitourinary: No symptoms reported Musculoskeletal: No symptoms reported Skin: No symptoms reported Hematologic/Lymphatic: No symptoms reported Neurological/Psychological: No symptoms reported -: Yes All other systems reviewed and negative Physical Exam - Vital signs Vitals: Temp Pulse Resp BP Pulse Ox 99.1 F 91 16 117/71 99 10/11/17 14:47 10/11/17 14:47 10/11/17 14:47 10/11/17 14:47 10/11/17 14:47 - Notes Notes: GENERAL: Alert, interacts well. No acute distress. HEAD: Normocephalic, Atraumatic. NECK: Full range of motion. Supple. Trachea midline. LUNGS: Clear to auscultation bilaterally, no wheezes, rales, or rhonchi. No respiratory distress. HEART: Regular rate and rhythm. No murmurs, gallops, or rubs. ABDOMEN: Soft, non-tender. Non-distended. Bowel sounds present in all 4 quadrants. Course - Vital Signs Vital signs: Temp Pulse Resp BP Pulse Ox 99.1 F 91 16 117/71 99 10/11/17 14:47 10/11/17 14:47 10/11/17 14:47 10/11/17 14:47 10/11/17 14:47 Scribe Documentation - Scribe Written by Derik:: Derik Porter, 10/11/2017 15:13 acting as scribe for :: Brando
[2017-10-11 15:33] LABS: APPEARANCE,URINE CLEAR; BILIRUBIN,URINE NEGATIVE (NEGATIVE); COLOR,URINE STRAW; GLUCOSE, URINE NEGATIVE (NEGATIVE); KETONES,URINE NEGATIVE (NEGATIVE); LEUKOCYTE ESTERASE,URINE NEGATIVE (NEGATIVE); NITRITE,URINE NEGATIVE (NEGATIVE); PROTEIN,URINE NEGATIVE (NEGATIVE); URINE SPECIFIC GRAVITY 1.002; UROBILINOGEN,URINE NEGATIVE mg/dL (<2.0)
--- NOTE | 2017-10-11 15:45 | RADIOLOGY REPORT (SQ) ---
EXAM DESCRIPTION: KUB/ABDOMEN (SINGLE VIEW) COMPLETED DATE/TIME: 10/11/2017 3:29 pm REASON FOR STUDY: generalized abd pain COMPARISON: Abdominal films 08/30/2017 CT abdomen pelvis 12/17/2016 NUMBER OF VIEWS: One view. TECHNIQUE: Supine radiographic image of the abdomen acquired. LIMITATIONS: None. FINDINGS: BOWEL GAS PATTERN: Large amount of stool throughout the colon. No air-fluid levels in sto mach or small bowel. CALCIFICATIONS: No suspicious calcifications. SOFT TISSUES: No gross mass or suggestion of organomegaly. HARDWARE: Surgical clips in the pelvis BONES: No acute fracture. No worrisome bone lesions. OTHER: No other significant finding. IMPRESSION: Constipation TECHNICAL DOCUMENTATION: JOB ID: [id number] [employer]- All Rights Reserved
[2017-10-11 15:49] LABS: ABSOLUTE BASOPHILS # (AUTO) 0.1 10^3/uL (0.0-0.2); ABSOLUTE EOSINOPHILS # (AUTO) 0.2 10^3/uL (0.0-0.6); ABSOLUTE LYMPHOCYTES (AUTO) 1.8 10^3/uL (0.5-4.7); ABSOLUTE MONOCYTES (AUTO) 0.7 10^3/uL (0.1-1.4); ABSOLUTE NEUT (AUTO) 6.4 10^3/uL (1.7-8.2); BASOPHILS % (AUTO) 0.6 % (0-2); EOSINOPHILS % (AUTO) 2.2 % (0-6); HEMATOCRIT 35.9 % (36.0-47.0); HEMOGLOBIN 12.3 g/dL (12.0-15.5); LYMPHOCYTES % (AUTO) 19.8 % (13-45); MEAN CORPUSCULAR HEMOGLOBIN 32.1 pg (27.0-33.4); MEAN CORPUSCULAR HGB CONC 34.3 g/dL (32.0-36.0); MEAN CORPUSCULAR VOLUME 93 fl (80-97); MONOCYTES % (AUTO) 7.3 % (3-13); PLATELET COUNT 494 10^3/uL (150-450); RED BLOOD COUNT 3.84 10^6/uL (3.72-5.28); RED CELL DISTRIBUTION WIDTH 15.4 % (11.5-14.0); SEGMENTED NEUTROPHILS % (AUTO) 70.1 % (42-78); TOTAL CELLS COUNTED % (AUTO) 100 %; WHITE BLOOD COUNT 9.1 10^3/uL (4.0-10.5)
[2017-10-11 16:11] LABS: ALANINE AMINOTRANSFERASE 15 U/L (9-52); ALKALINE PHOSPHATASE 53 U/L (38-126); ANION GAP 10 (5-19); ASPARTATE AMINO TRANSFERASE 14 U/L (14-36); BILIRUBIN,DIRECT 0.1 mg/dL (0.0-0.4); BILIRUBIN,TOTAL 0.2 mg/dL (0.2-1.3); BLOOD UREA NITROGEN 5 mg/dL (7-20); CALCIUM 8.7 mg/dL (8.4-10.2); CARBON DIOXIDE 27 mmol/L (22-30); CHLORIDE 100 mmol/L (98-107); GLUCOSE 84 mg/dL (75-110); LIPASE 63.7 U/L (23-300); POTASSIUM 4.5 mmol/L (3.6-5.0); SODIUM 137.4 mmol/L (137-145); TOTAL PROTEIN 6.2 g/dL (6.3-8.2)
--- NOTE | 2017-10-11 18:01 | ER Document Report ---
HPI - HPI Patient complains to provider of: abdominal pain Pain Level: 4 Context: Patient is a 58-year-old female returns emergency department with a chief complaint today of generalized abdominal cramping. Patient states that she has had multiple soft bowel movements over the course of 4 days but denies any diarrhea. She states that her pain improved after having a bowel movement. She denies any vomiting. History of IBS and diverticulitis. Denies any fevers or chills. Follows with Dr. Taylor and Dr. Batres - REPRODUCTIVE Reproductive: DENIES: : Past Medical History - General Information source: Patient - Social History Smoking Status: Unknown if Ever Smoked Frequency of alcohol use: None Drug Abuse: None Family History: Arthritis, CAD, CVA, DM, Hyperlipidemia, Hypertension, Malignancy, Thyroid Disfunction Patient has suicidal ideation: No Patient has homicidal ideation: No - Past Medical History Cardiac Medical History: Denies: Hx Congestive Heart Failure, Hx Heart Attack, Hx Hypertension Pulmonary Medical History: Reports: Hx Asthma, Hx Bronchitis, Hx Pneumonia Denies: Hx COPD, Hx Tuberculosis Neurological Medical History: Denies: Hx Cerebrovascular Accident, Hx Seizures Renal/ Medical History: Denies: Hx End Stage Renal Disease, Hx Kidney Stones, Hx Peritoneal Dialysis GI Medical History: Reports: Hx Crohn's Disease, Hx Diverticulitis, Hx Gastroesophageal Reflux Disease, Hx Hiatal Hernia, Hx Irritable Bowel. Denies: Hx Cirrhosis, Hx Ulcer Musculoskeltal Medical History: Reports Hx Arthritis, Denies Hx Multiple Sclerosis, Reports Hx Musculoskeletal Deformity, Reports Hx Musculoskeletal Trauma Psychiatric Medical History: Reports: Hx Anxiety Denies: Hx Bipolar Disorder, Hx Depression, Hx Schizophrenia Past Surgical History: Reports: Hx Abdominal Surgery - small intestine removal, Hx Appendectomy, Hx Bowel Surgery - small intestine, Hx Breast Surgery - biopsy , Hx Hysterectomy, Hx Neurologic Surgery - brain tumor removed, Hx Tonsillectomy. Denies: Hx Open Heart Surgery - Immunizations Immunizations up to date: Yes Hx Diphtheria, Pertussis, Tetanus Vaccination: Yes - 09/2010 Hx Pneumococcal Vaccination: 08/24/10 Vertical Provider Document - CONSTITUTIONAL Agree With Documented VS: Yes Notes: PHYSICAL EXAM GENERAL: Alert, interacts well. NECK: Full range of motion. Supple. Trachea midline. LUNGS: Clear to auscultation bilaterally, no wheezes, rales, or rhonchi. No respiratory distress. HEART: Regular rate and rhythm. No murmurs, gallops, or rubs. ABDOMEN: Soft, nondistended, nontender. No guarding, rebound, or rigidity.. Bowel sounds present in all 4 quadrants. EXTREMITIES: Moves all 4 extremities spontaneously. No edema, radial and dorsalis pedis pulses 2/4 bilaterally. No cyanosis. NEUROLOGICAL: Alert and oriented x4. Normal speech. PSYCH: Normal affect, normal mood. Tangential thoughts but easily redirectable SKIN: Warm, dry, normal turgor. No rashes or lesions noted. - INFECTION CONTROL TRAVEL OUTSIDE OF THE [place] IN LAST 30 DAYS: No COUNTRY TRAVELED TO/FROM: [place] - RESPIRATORY O2 Sat by Pulse Oximetry: 99 Course - Re-evaluation Re-evalutation: 10/11/17 Patient is a 66-year-old female who is hemodynamically stable, no acute distress and afebrile. Patient is well-known to this emergency department for chronic abdominal pain. Presentation today is consistent with her baseline of her IBS. CBC stable without evidence of leukocytosis or anemia. No evidence of electrolyte abnormalities, elevated liver enzymes or ARF. Urinalysis without evidence of acute dehydration, urinary tract infection. Patient tolerating p.o. without any difficulty. Patient states symptoms improved after IM dose of Bentyl. Discussed with her that her symptoms today are consistent with her history of IBS. Discussed with her to follow-up with her director hardware. She is requesting a referral for a another director hardware and she states Dr. Taylor will not see her anymore. This was provided for her for [facility]. Otherwise patient's vital signs are stable for discharge - Vital Signs Vital signs: Temp Pulse Resp BP Pulse Ox 99.1 F 91 16 117/71 99 10/11/17 14:47 10/11/17 14:47 10/11/17 14:47 10/11/17 14:47 10/11/17 14:47 - Laboratory Result Diagrams: 10/11/17 15:15 10/11/17 15:15 Laboratory results interpreted by me: 10/11/17 10/11/17 10/11/17 15:15 15:15 15:15 Hct 35.9 L RDW 15.4 H Plt Count 494 H BUN 5 L Total Protein 6.2 L Urine Ascorbic Acid 40 H - Diagnostic Test Radiology reviewed: Image reviewed, Reports reviewed Discharge - Discharge Clinical Impression: Constipation Qualifiers: Constipation type: unspecified constipation type Qualified Code(s): K59.00 - Constipation, unspecified Condition: Good Disposition: HOME, SELF-CARE Additional Instructions: Your symptoms today are consistent with your irritable bowel disease with associated constipation. You can take bentyl as needed every 6 hours Please start taking a stool softner called Docusate 200mg by mouth daily and drink plenty of water Prescriptions: Dicyclomine HCl [Bentyl 20 mg Tablet] 20 mg PO QID #40 tablet Referrals: TYLER HERRERA MD [NO LOCAL MD] - Follow up in 3-5 days (Gastroenterology) ARACELI BATRES MD [ACTIVE STAFF] - Follow up in 1 week
== END 2017-10-11 18:15 | disposition home or self-care (01) ==
LOC: ER 14:28
DX: K59.00 Constipation, unspecified (principal); R10.9 Unspecified abdominal pain; R11.0 Nausea; Z88.0 Allergy status to penicillin; Z88.2 Allergy status to sulfonamides; Z88.3 Allergy status to other anti-infective agents; Z90.710 Acquired absence of both cervix and uterus
CPT/HCPCS: 99284; 36415; 83690; 83735; 85025; 80053; 81001; 74018; J3490

== ENCOUNTER 2017-10-15 12:10 | Emergency (ER) | payer MEDICARE, MEDICAID ==
[2017-10-15] MEDS ORDERED: NORMAL SALINE 1000 ML 1,000 ML IV ONE ×2 (12:29→14:07)
--- NOTE | 2017-10-15 12:30 | ER Document Report ---
ED Medical Screen (RME) - General Chief Complaint: Abdominal Pain Stated Complaint: ABDOMINAL PAIN Time Seen by Provider: 10/15/17 12:28 Mode of Arrival: Ambulatory Information source: Patient TRAVEL OUTSIDE OF THE [place] IN LAST 30 DAYS: No COUNTRY TRAVELED TO/FROM: [facility] Patient complains to provider of: abd pain Onset: Yesterday - pt is followed by Dr. Paz for recurrent abdominal pain -- was told she needs an MRI for her pain. - Related Data Allergies/Adverse Reactions: Penicillins Allergy (Severe, Verified 10/11/17 14:29) Anaphylaxis Sulfa (Sulfonamide Antibiotics) Allergy (Intermediate, Verified 10/11/17 14:29) iching, nausea ciprofloxacin [From Cipro] Allergy (Mild, Verified 10/11/17 14:29) itching, nausea meperidine HCl [From Demerol] Allergy (Mild, Verified 10/11/17 14:29) heart palpitations Past Medical History - Social History Family history: Reviewed & Not Pertinent - Past Medical History Cardiac Medical History: Denies: Hx Congestive Heart Failure, Hx Heart Attack, Hx Hypertension Pulmonary Medical History: Reports: Hx Asthma, Hx Bronchitis, Hx Pneumonia Denies: Hx COPD, Hx Tuberculosis Neurological Medical History: Denies: Hx Cerebrovascular Accident, Hx Seizures Renal/ Medical History: Denies: Hx End Stage Renal Disease, Hx Kidney Stones, Hx Peritoneal Dialysis GI Medical History: Reports: Hx Crohn's Disease, Hx Diverticulitis, Hx Gastroesophageal Reflux Disease, Hx Hiatal Hernia, Hx Irritable Bowel. Denies: Hx Cirrhosis, Hx Ulcer Musculoskeltal Medical History: Reports Hx Arthritis, Denies Hx Multiple Sclerosis, Reports Hx Musculoskeletal Deformity, Reports Hx Musculoskeletal Trauma Psychiatric Medical History: Reports: Hx Anxiety Denies: Hx Bipolar Disorder, Hx Depression, Hx Schizophrenia Past Surgical History: Reports: Hx Abdominal Surgery - small intestine removal, Hx Appendectomy, Hx Bowel Surgery - small intestine, Hx Breast Surgery - biopsy , Hx Hysterectomy, Hx Neurologic Surgery - brain tumor removed, Hx Tonsillectomy. Denies: Hx Open Heart Surgery - Immunizations Immunizations up to date: Yes Hx Diphtheria, Pertussis, Tetanus Vaccination: Yes - 09/2010 History of Influenza Vaccine for 05/2017 - 10/2017 Season: No Physical Exam - Vital signs Vitals: Temp Pulse Resp BP Pulse Ox 97.9 F 69 18 128/60 H 100 10/15/17 12:21 10/15/17 12:21 10/15/17 12:21 10/15/17 12:21 10/15/17 12:21 Course - Vital Signs Vital signs: Temp Pulse Resp BP Pulse Ox 97.9 F 69 18 128/60 H 100 10/15/17 12:21 10/15/17 12:21 10/15/17 12:21 10/15/17 12:21 10/15/17 12:21
[2017-10-15 13:25] LABS: ABSOLUTE BASOPHILS # (AUTO) 0.1 10^3/uL (0.0-0.2); ABSOLUTE EOSINOPHILS # (AUTO) 0.3 10^3/uL (0.0-0.6); ABSOLUTE LYMPHOCYTES (AUTO) 1.9 10^3/uL (0.5-4.7); ABSOLUTE MONOCYTES (AUTO) 0.6 10^3/uL (0.1-1.4); ABSOLUTE NEUT (AUTO) 5.9 10^3/uL (1.7-8.2); BASOPHILS % (AUTO) 1.2 % (0-2); HEMATOCRIT 39.7 % (36.0-47.0); HEMOGLOBIN 13.8 g/dL (12.0-15.5); LYMPHOCYTES % (AUTO) 21.5 % (13-45); MEAN CORPUSCULAR HEMOGLOBIN 32.6 pg (27.0-33.4); MEAN CORPUSCULAR HGB CONC 34.7 g/dL (32.0-36.0); MEAN CORPUSCULAR VOLUME 94 fl (80-97); MONOCYTES % (AUTO) 6.9 % (3-13); PLATELET COUNT 485 10^3/uL (150-450); RED BLOOD COUNT 4.23 10^6/uL (3.72-5.28); RED CELL DISTRIBUTION WIDTH 15.5 % (11.5-14.0); SEGMENTED NEUTROPHILS % (AUTO) 67.4 % (42-78); TOTAL CELLS COUNTED % (AUTO) 100 %; WHITE BLOOD COUNT 8.8 10^3/uL (4.0-10.5)
[2017-10-15 13:37] LABS: ALANINE AMINOTRANSFERASE 16 U/L (9-52); ALBUMIN 4.2 g/dL (3.5-5.0); ALKALINE PHOSPHATASE 76 U/L (38-126); ANION GAP 13 (5-19); ASPARTATE AMINO TRANSFERASE 18 U/L (14-36); BILIRUBIN,DIRECT 0.1 mg/dL (0.0-0.4); BILIRUBIN,TOTAL 0.3 mg/dL (0.2-1.3); BLOOD UREA NITROGEN 4 mg/dL (7-20); CALCIUM 9.2 mg/dL (8.4-10.2); CARBON DIOXIDE 24 mmol/L (22-30); CHLORIDE 101 mmol/L (98-107); GLUCOSE 83 mg/dL (75-110); LIPASE 66.6 U/L (23-300); POTASSIUM 3.9 mmol/L (3.6-5.0); SODIUM 138.2 mmol/L (137-145); TOTAL PROTEIN 6.9 g/dL (6.3-8.2)
[2017-10-15 13:45] LABS: APPEARANCE,URINE SLIGHTLY-CLOUDY; BILIRUBIN,URINE NEGATIVE (NEGATIVE); COLOR,URINE YELLOW; GLUCOSE, URINE NEGATIVE (NEGATIVE); KETONES,URINE NEGATIVE (NEGATIVE); LEUKOCYTE ESTERASE,URINE NEGATIVE (NEGATIVE); NITRITE,URINE NEGATIVE (NEGATIVE); PROTEIN,URINE NEGATIVE (NEGATIVE); URINE SPECIFIC GRAVITY 1.009; UROBILINOGEN,URINE NEGATIVE mg/dL (<2.0)
--- NOTE | 2017-10-15 15:24 | ER Document Report ---
ED GI/ - General Chief Complaint: Abdominal Pain Stated Complaint: ABDOMINAL PAIN Time Seen by Provider: 10/15/17 12:28 Mode of Arrival: Ambulatory Information source: Patient Notes: Patient is a 66-year-old female with a long history of irritable bowel syndrome who presents today stating 5 weeks of some intermittent abdominal "colon pain". She denies any vomiting, fevers, dysuria, or diarrhea. Patient was seen here about 5 days ago for similar symptomatology. Labs were unremarkable. CT scan imaging of the abdomen and pelvis were held given the multiple imaging previously and that the patient is such a recurrent emergency department patient. She denies any aggravating or relieving factors. No radiation of the pain. TRAVEL OUTSIDE OF THE [place] IN LAST 30 DAYS: No COUNTRY TRAVELED TO/FROM: [facility] Patient complains to provider of: Abdominal pain Onset: Other - See above Timing/Duration: Gradual Quality of pain: Achy Severity at maximum: Moderate Severity in ED: Moderate Pain Level: 1 Vaginal bleeding (Compared to normal period): None Sexual history: Inactive Associated symptoms: Other - See above Exacerbated by: Denies Relieved by: Denies Similar symptoms previously: Yes Recently seen / treated by doctor: Yes - Related Data Allergies/Adverse Reactions: aspirin Allergy (Severe, Verified 10/15/17 12:35) Anaphylaxis Penicillins Allergy (Severe, Verified 10/15/17 12:33) Anaphylaxis acetaminophen [From Vicodin] Allergy (Intermediate, Verified 10/15/17 12:35) Anaphylaxis hydrocodone [From Vicodin] Allergy (Intermediate, Verified 10/15/17 12:35) Anaphylaxis Sulfa (Sulfonamide Antibiotics) Allergy (Intermediate, Verified 10/15/17 12:33) iching, nausea ciprofloxacin [From Cipro] Allergy (Mild, Verified 10/15/17 12:33) itching, nausea codeine Allergy (Mild, Verified 10/15/17 12:35) Diarrhea meperidine HCl [From Demerol] Allergy (Mild, Verified 10/15/17 12:33) heart palpitations Past Medical History - General Information source: Patient - Social History Smoking Status: Never Smoker Cigarette use (# per day): No Chew tobacco use (# tins/day): No Smoking Education Provided: No Frequency of alcohol use: None Drug Abuse: None Family History: Arthritis, CAD, CVA, DM, Hyperlipidemia, Hypertension, Malignancy, Thyroid Disfunction Patient has suicidal ideation: No Patient has homicidal ideation: No - Past Medical History Cardiac Medical History: Denies: Hx Congestive Heart Failure, Hx Heart Attack, Hx Hypertension Pulmonary Medical History: Reports: Hx Asthma, Hx Bronchitis, Hx Pneumonia Denies: Hx COPD, Hx Tuberculosis Neurological Medical History: Denies: Hx Cerebrovascular Accident, Hx Seizures Renal/ Medical History: Denies: Hx End Stage Renal Disease, Hx Kidney Stones, Hx Peritoneal Dialysis GI Medical History: Reports: Hx Crohn's Disease, Hx Diverticulitis, Hx Gastroesophageal Reflux Disease, Hx Hiatal Hernia, Hx Irritable Bowel. Denies: Hx Cirrhosis, Hx Ulcer Musculoskeltal Medical History: Reports Hx Arthritis, Denies Hx Multiple Sclerosis, Reports Hx Musculoskeletal Deformity, Reports Hx Musculoskeletal Trauma Psychiatric Medical History: Reports: Hx Anxiety Denies: Hx Bipolar Disorder, Hx Depression, Hx Schizophrenia Past Surgical History: Reports: Hx Abdominal Surgery - small intestine removal, Hx Appendectomy, Hx Bowel Surgery - small intestine, Hx Breast Surgery - biopsy , Hx Hysterectomy, Hx Neurologic Surgery - brain tumor removed, Hx Tonsillectomy. Denies: Hx Open Heart Surgery - Immunizations Immunizations up to date: Yes Hx Diphtheria, Pertussis, Tetanus Vaccination: Yes - 09/2010 Hx Pneumococcal Vaccination: 08/24/10 Review of Systems - Review of Systems Constitutional: denies: Fever EENT: denies: Eye discharge, Nose discharge Cardiovascular: denies: Chest pain, Palpitations Respiratory: denies: Short of breath Gastrointestinal: denies: Vomiting Genitourinary: denies: Dysuria Musculoskeletal: denies: Leg swelling Skin: Other - no hives. denies: Rash Neurological/Psychological: Other - no slurred speech -: Yes All other systems reviewed and negative Physical Exam - Vital signs Vitals: Temp Pulse Resp BP Pulse Ox 97.9 F 69 18 128/60 H 100 10/15/17 12:21 10/15/17 12:21 10/15/17 12:21 10/15/17 12:21 10/15/17 12:21 Notes: Reviewed vital signs and nursing note as charted by RN. CONSTITUTIONAL: Alert and oriented and responds appropriately to questions. Well -appearing; well-nourished HEAD: Normocephalic; atraumatic EYES: Sclerae non-icteric ENT: Normal nose; no rhinorrhea; moist mucous membranes NECK: Supple without meningismus; non-tender CARD: Regular rate and rhythm; no murmurs RESP: Normal chest excursion without splinting or tachypnea; breath sounds clear and equal bilaterally ABD/GI: Normal bowel sounds; non-distended; soft, non-tender, no rebound, no guarding; no palpable organomegaly or abdominal bruits BACK: The back appears normal and is non-tender to palpation, there is no CVA tenderness EXT: No edema SKIN: No acute lesions noted NEURO: Moves all extremities equally; Motor and sensory function intact PSYCH: The patient's mood and manner are appropriate. Grooming and personal hygiene are appropriate. Course - Re-evaluation Re-evalutation: Given the history and physical examination, the patient's age, we will obtain basic labs again, liver panel, lipase, and a urine analysis. 10/15/17 15:23 Labs as recorded. Patient is requesting another half a liter of IV fluid. I have reviewed the patient's chart and it appears that the patient has not had a CT scan of the abdomen and pelvis in 10 months. Patient has had multiple CT scans previous to this. I have explained to the patient that I do believe finding an acute intra-abdominal infection to be unlikely and I am worried about the radiation that the patient has experienced in her past. She understands this and is demanding a CT scan of the abdomen and pelvis. 10/15/17 16:11 CT scan of the abdomen and pelvis as recorded. Vital signs are stable. No vomiting here in the emergency department. Patient will be discharged home with strict return precautions and instructions to follow-up with her primary care physician and community engagement coordinator. - Vital Signs Vital signs: Temp Pulse Resp BP Pulse Ox 97.9 F 69 18 128/60 H 100 10/15/17 12:21 10/15/17 12:21 10/15/17 12:21 10/15/17 12:21 10/15/17 12:21 - Laboratory Result Diagrams: 10/15/17 12:55 10/15/17 12:55 Laboratory results interpreted by me: 10/15/17 10/15/17 12:55 12:55 RDW 15.5 H Plt Count 485 H BUN 4 L Discharge - Discharge Clinical Impression: Abdominal discomfort Condition: Good Disposition: HOME, SELF-CARE Additional Instructions: Come back immediately with any increased pain, change in location or quality of pain, fevers or vomiting, or any other acute problems. Please follow-up with your primary care physician and community engagement coordinator as we have discussed.
--- NOTE | 2017-10-15 16:08 | RADIOLOGY REPORT (SQ) ---
EXAM DESCRIPTION: CT ABD/PELVIS WITH IV ORAL COMPLETED DATE/TIME: 10/15/2017 3:53 pm REASON FOR STUDY: 14, colon COMPARISON: [address] abdomen and pelvis exams since 2010, most recently 12/17/2016 and 07/12/2015 TECHNIQUE: CT scan of the abdomen and pelvis performed using helical scanning technique with dynamic intravenous contrast injection. Patient drank oral contrast. Images reviewed with lung, soft tissue , and bone windows. Reconstructed coronal and sagittal MPR images reviewed. Delayed images for evalua tion of the urinary system also acquired. All images stored on PACS. All CT scanners at this facility use dose modulation, iterative reconstruction, and/or weight based d osing when appropriate to reduce radiation dose to as low as reasonably achievable (ALARA). [facility]: Dose Right [facility]: CareDose [facility]: Dose Right [facility]: Teradose 4D [facility]: Next Caller CONTRAST TYPE AND DOSE: contrast/concentration: Isovue 370.00 mg/ml; Total Contrast Delivered: 64.0 ml; Total Saline Delivered: 65.1 ml RENAL FUNCTION: Creatinine 0.67 RADIATION DOSE: CT Rad equipment meets quality standard of care and radiation dose reduction techniq ues were employed. CTDIvol: 5.4 - 7.4 mGy. DLP: 639 mGy-cm.. LIMITATIONS: None. FINDINGS: LOWER CHEST: Small hiatal hernia. Lung bases are free of focal infiltrates. No pleural e ffusions. LIVER: Normal size. No masses. No dilated ducts. SPLEEN: Normal size. No focal lesions. PANCREAS: No masses. No significant calcifications. No adjacent inflammation or peripancreatic fluid collections. Pancreatic duct not dilated. GALLBLADDER: No identified stones by CT criteria. No inflammatory changes to suggest cholecystitis. ADRENAL GLANDS: No significant masses or asymmetry. RIGHT KIDNEY AND URETER: No solid masses. No significant calcifications. No hydronephrosis or hyd roureter. LEFT KIDNEY AND URETER: No solid masses. No significant calcifications. No hydronephrosis or hydr oureter. AORTA AND VESSELS: No aneurysm. No dissection. Renal arteries, SMA, celiac without stenosis. RETROPERITONEUM: No retroperitoneal adenopathy, hemorrhage or masses. BOWEL AND PERITONEAL CAVITY: Patient drank oral contrast. No evidence of bowel obstruction. No free intraperitoneal air or fluid. There are surgical clips in the right lower quadrant post appendectom y. APPENDIX: Surgically absent PELVIS: Post hysterectomy. Bladder, rectum unremarkable. No pelvic free fluid or adenopathy ABDOMINAL WALL: No masses. No hernias. BONES: Advanced multilevel degenerative disc changes in the lumbar spine OTHER: No other significant finding. IMPRESSION: No acute findings TECHNICAL DOCUMENTATION: JOB ID: [id number] Quality ID # [id number]: Final reports with documentation of one or more dose reduction techniques (e.g., Au tomated exposure control, adjustment of the mA and/or kV according to patient size, use of iterative reconstruction technique) 2010 [employer]- All Rights Reserved Reading location - IP/workstation name: [email or web address]
[2017-10-15 16:52] VITALS: BP 126/64
== END 2017-10-15 16:56 | disposition home or self-care (01) ==
LOC: ER 12:10
DX: R10.9 Unspecified abdominal pain (principal); Z87.19 Personal history of other diseases of the digestive system; Z90.49 Acquired absence of other specified parts of digestive tract; Z88.2 Allergy status to sulfonamides; Z88.1 Allergy status to other antibiotic agents; Z87.892 Personal history of anaphylaxis; Z88.6 Allergy status to analgesic agent; Z88.0 Allergy status to penicillin; Z88.5 Allergy status to narcotic agent
CPT/HCPCS: 99284; 96360; 96361; 36415; 83690; 85025; 80053; 81001; 74177; J7030

== ENCOUNTER 2017-10-17 12:51 | Observation (INO) | payer MEDICARE, MEDICAID ==
[2017-10-17 17:42] LABS: APPEARANCE,URINE SLIGHTLY-CLOUDY; BILIRUBIN,URINE SMALL (NEGATIVE); COLOR,URINE AMBER; GLUCOSE, URINE NEGATIVE (NEGATIVE); KETONES,URINE TRACE mg/dL (NEGATIVE); LEUKOCYTE ESTERASE,URINE NEGATIVE (NEGATIVE); NITRITE,URINE NEGATIVE (NEGATIVE); PROTEIN,URINE 30 mg/dL (NEGATIVE); URINE SPECIFIC GRAVITY 1.023
[2017-10-17 18:17] LABS: ABSOLUTE BASOPHILS # (AUTO) 0.1 10^3/uL (0.0-0.2); ABSOLUTE EOSINOPHILS # (AUTO) 0.2 10^3/uL (0.0-0.6); ABSOLUTE MONOCYTES (AUTO) 0.7 10^3/uL (0.1-1.4); ABSOLUTE NEUT (AUTO) 5.6 10^3/uL (1.7-8.2); BASOPHILS % (AUTO) 0.6 % (0-2); EOSINOPHILS % (AUTO) 2.6 % (0-6); HEMATOCRIT 35.3 % (36.0-47.0); HEMOGLOBIN 12.1 g/dL (12.0-15.5); LYMPHOCYTES % (AUTO) 22.9 % (13-45); MEAN CORPUSCULAR HEMOGLOBIN 32.1 pg (27.0-33.4); MEAN CORPUSCULAR HGB CONC 34.2 g/dL (32.0-36.0); MEAN CORPUSCULAR VOLUME 94 fl (80-97); MONOCYTES % (AUTO) 7.7 % (3-13); PLATELET COUNT 450 10^3/uL (150-450); RED BLOOD COUNT 3.76 10^6/uL (3.72-5.28); RED CELL DISTRIBUTION WIDTH 15.5 % (11.5-14.0); SEGMENTED NEUTROPHILS % (AUTO) 66.2 % (42-78); TOTAL CELLS COUNTED % (AUTO) 100 %; WHITE BLOOD COUNT 8.5 10^3/uL (4.0-10.5)
[2017-10-17 18:42] LABS: ALANINE AMINOTRANSFERASE 21 U/L (9-52); ALBUMIN 3.7 g/dL (3.5-5.0); ALKALINE PHOSPHATASE 62 U/L (38-126); ANION GAP 8 (5-19); ASPARTATE AMINO TRANSFERASE 17 U/L (14-36); BILIRUBIN,DIRECT 0.4 mg/dL (0.0-0.4); BILIRUBIN,TOTAL 0.4 mg/dL (0.2-1.3); BLOOD UREA NITROGEN 3 mg/dL (7-20); CALCIUM 8.9 mg/dL (8.4-10.2); CARBON DIOXIDE 26 mmol/L (22-30); CHLORIDE 106 mmol/L (98-107); GLUCOSE 61 mg/dL (75-110); POTASSIUM 3.5 mmol/L (3.6-5.0); SODIUM 139.9 mmol/L (137-145); TOTAL PROTEIN 6.6 g/dL (6.3-8.2)
[2017-10-17 18:57] LABS: FREE T4 (FREE THYROXINE) 0.87 ng/dL (0.78-2.19)
[2017-10-17] MEDS: NORMAL SALINE 1000 ML 1,000 ML IV PRN (18:59)
[2017-10-17 19:11] LABS: THYROID STIMULATING HORMONE 2.42 uIU/mL (0.47-4.68)
[2017-10-17] MEDS ORDERED: MECLIZINE HCL 25 MG TABLET PO PRN (20:03)
[2017-10-17] MEDS ORDERED: HYDROCODONE/ACETAMINOPHEN 5-325 MG TABLET PO PRN (20:03)
[2017-10-17] MEDS: ALPRAZOLAM 0.25 MG TABLET PO SCH (22:07)
[2017-10-17] MEDS: CIPROFLOXACIN 400 MG/D5W RTU 400 MG/200 ML RTUPB IV SCH (22:52)
[2017-10-18] MEDS: NORMAL SALINE 1000 ML 1,000 ML IV PRN (05:04)
[2017-10-18] MEDS: LANSOPRAZOLE 30 MG TAB.RAP.DR PO SCH (05:05)
[2017-10-18] MEDS ORDERED: CYANOCOBALAMIN (VITAMIN B-12) INJ 1000 MCG/1 ML VIAL IM SCH ×2 (10:00→13:00)
[2017-10-18] MEDS: ALPRAZOLAM 0.25 MG TABLET PO SCH ×2 (10:02→22:20)
[2017-10-18] MEDS: IRON POLYSACCHARIDES COMPLEX 150 MG CAPSULE PO SCH (10:02)
[2017-10-18] MEDS: DILTIAZEM HCL 120 MG CAP.SR.24H PO SCH (10:03)
[2017-10-18] MEDS: SUCRALFATE SUSP 1 GM/10 ML UDCUP PO SCH ×2 (10:03→17:59)
[2017-10-18] MEDS: FUROSEMIDE 20 MG TABLET PO SCH (10:03)
[2017-10-18] MEDS: CIPROFLOXACIN 400 MG/D5W RTU 400 MG/200 ML RTUPB IV SCH ×2 (10:11→22:20)
--- NOTE | 2017-10-18 18:22 | PDOC H&P ---
History of Present Illness Admission Date/PCP: 10/17/17 16:40 ARACELI CORTEZ MD History of Present Illness: MICHAEL CAMEJO is a 66 year old female, she came to the office for evaluation of abdominal pain associated with diarrhea, dehydration she was in the emergency room on 10/15/2017 for evaluation of abdominal pain. She had a CT scan of the abdomen and pelvis with IV contrast it showed no acute pathology, there is no evidence of diverticulitis there is no perforation, she has a remote history of diverticulitis, she believed she had diverticulitis before there is no evidence of such from the recent CT scan. She was admitted directly from the office for observation and management of her symptoms the initial urinalysis suggests urinary tract infection. Past Medical History Cardiac Medical History: Reports: Hypertension Pulmonary Medical History: Reports: Asthma, Bronchitis, Pneumonia GI Medical History: Reports: Crohn's Disease, Diverticulitis, Gastroesophageal Reflux Disease, Hiatal Hernia Musculoskeltal Medical History: Reports: Arthritis Hematology: Reports: Anemia Past Surgical History Past Surgical History: Reports: Appendectomy, Hysterectomy, Tonsillectomy Social History Smoking Status: Never Smoker Frequency of Alcohol Use: None Hx Recreational Drug Use: No Drugs: None Hx Prescription Drug Abuse: No - Advance Directive Resuscitation Status: Full Code Family History Family History: Arthritis, CAD, CVA, DM, Hyperlipidemia, Hypertension, Malignancy, Thyroid Disfunction Parental Family History Reviewed: Yes Children Family History Reviewed: Yes Sibling(s) Family History Reviewed.: Yes Medication/Allergy Home Medications: Dexlansoprazole [Dexilant 60 mg Capsule] 60 mg PO DAILY 10/17/17 Diltiazem HCl [Cardizem Cd 120 mg Capsule] 120 mg PO DAILY 10/17/17 Hydrocodone/Acetaminophen [Hydrocodone-Acetamin 5-325 mg] 1 tab PO Q8HP PRN Iron Polysaccharide Complex [Ferrex 150] 150 mg PO DAILY 10/17/17 RX: Alprazolam [Xanax 0.25 mg Tablet] 0.25 mg PO Q12 10/17/17 RX: Cyanocobalamin (Vitamin B-12) [Vitamin B-12 Inj 1000 Mcg/1 ml Vial] 1,000 mcg IM Q14D 10/17/17 RX: Furosemide [Lasix 20 mg Tablet] 10 mg PO DAILY 10/17/17 RX: Meclizine HCl [Antivert 25 mg Tablet] 25 mg PO Q8HP PRN 10/17/17 Sucralfate [Carafate Susp 1 gm/10 ml Udcup] 1 gm PO BID 10/17/17 Allergies/Adverse Reactions: aspirin Allergy (Severe, Verified 10/15/17 12:35) Anaphylaxis Penicillins Allergy (Severe, Verified 10/15/17 12:33) Anaphylaxis acetaminophen [From Vicodin] Allergy (Intermediate, Verified 10/15/17 12:35) Anaphylaxis hydrocodone [From Vicodin] Allergy (Intermediate, Verified 10/15/17 12:35) Anaphylaxis Sulfa (Sulfonamide Antibiotics) Allergy (Intermediate, Verified 10/15/17 12:33) iching, nausea ciprofloxacin [From Cipro] Allergy (Mild, Verified 10/15/17 12:33) itching, nausea codeine Allergy (Mild, Verified 10/15/17 12:35) Diarrhea meperidine HCl [From Demerol] Allergy (Mild, Verified 10/15/17 12:33) heart palpitations Review of Systems Constitutional: PRESENT: anorexia Eyes: ABSENT: visual disturbances Ears: ABSENT: hearing changes Cardiovascular: ABSENT: chest pain, dyspnea on exertion, edema, orthropnea, palpitations Respiratory: ABSENT: cough, hemoptysis Gastrointestinal: PRESENT: abdominal pain Genitourinary: ABSENT: dysuria, hematuria Musculoskeletal: ABSENT: joint swelling Integumentary: ABSENT: rash, wounds Neurological: ABSENT: abnormal gait, abnormal speech, confusion, dizziness, focal weakness, syncope Psychiatric: ABSENT: anxiety, depression, homidical ideation, suicidal ideation Endocrine: ABSENT: cold intolerance, heat intolerance, menstrual abnormalities, polydipsia, polyuria Hematologic/Lymphatic: ABSENT: easy bleeding, easy bruising, lymphadenopathy Physical Exam Vital Signs: Temp Pulse Resp BP Pulse Ox 98.5 F 71 16 107/70 100 10/18/17 16:00 10/18/17 16:00 10/18/17 16:00 10/18/17 16:00 10/18/17 16:00 Intake & Output 10/17/17 10/18/17 10/19/17 06:59 06:59 06:59 Intake Total 1340 Output Total 1000 Balance 340 Weight 58.5 kg Head exam: PRESENT: atraumatic, normocephalic Eye exam: PRESENT: conjunctiva pink, EOMI, PERRLA Ear exam: PRESENT: normal external ear exam Mouth exam: PRESENT: moist, tongue midline Neck exam: PRESENT: full ROM Respiratory exam: PRESENT: clear to auscultation franky Cardiovascular exam: PRESENT: RRR, +S1, +S2 Vascular exam: PRESENT: normal capillary refill GI/Abdominal exam: PRESENT: normal bowel sounds, soft, tenderness Rectal exam: PRESENT: deferred Neurological exam: PRESENT: alert, awake, oriented to person, oriented to place , oriented to time, oriented to situation, CN II-XII grossly intact Psychiatric exam: PRESENT: appropriate affect, normal mood Skin exam: PRESENT: dry, intact, warm. ABSENT: cyanosis, rash Results Laboratory Results: 10/17/17 18:08 10/17/17 18:08 10/17/17 10/17/17 10/17/17 18:08 18:08 18:08 WBC 8.5 RBC 3.76 Hgb 12.1 Hct 35.3 L MCV 94 MCH 32.1 MCHC 34.2 RDW 15.5 H Plt Count 450 Seg Neutrophils % 66.2 Lymphocytes % 22.9 Monocytes % 7.7 Eosinophils % 2.6 Basophils % 0.6 Absolute Neutrophils 5.6 Absolute Lymphocytes 2.0 Absolute Monocytes 0.7 Absolute Eosinophils 0.2 Absolute Basophils 0.1 Sodium 139.9 Potassium 3.5 L Chloride 106 Carbon Dioxide 26 Anion Gap 8 BUN 3 L Creatinine 0.63 Est GFR ( Amer) > 60 Est GFR (Non-Af Amer) > 60 Glucose 61 L Calcium 8.9 Total Bilirubin 0.4 AST 17 ALT 21 Alkaline Phosphatase 62 Total Protein 6.6 Albumin 3.7 TSH 2.42 Free T4 0.87 Assessment & Plan - Diagnosis (1) Abdominal pain Qualifiers: Abdominal location: generalized Qualified Code(s): R10.84 - Generalized abdominal pain Is this a current diagnosis for this admission?: Yes (2) Urinary tract infection Qualifiers: Urinary tract infection type: acute cystitis Hematuria presence: without hematuria Qualified Code(s): N30.00 - Acute cystitis without hematuria Is this a current diagnosis for this admission?: Yes Plan: She is admitted for observation ,started on ciprofloxacin
--- NOTE | 2017-10-18 18:41 | PDOC DISCHARGE SUMMARY ---
General - Admit/Disc Date/PCP Admission Date/Primary Care Provider: 10/17/17 16:40 ARACELI CORTEZ MD Discharge Date: 10/19/17 - Discharge Diagnosis (1) Abdominal pain Is this a current diagnosis for this admission?: Yes (2) Urinary tract infection Is this a current diagnosis for this admission?: Yes - Additional Information Resuscitation Status: Full Code Discharge Activity: Activity As Tolerated Home Medications: Cyanocobalamin (Vitamin B-12) [Vitamin B-12 Inj 1000 Mcg/1 ml Vial] 1,000 mcg IM Q14D 10/17/17 Dexlansoprazole [Dexilant 60 mg Capsule] 60 mg PO DAILY 10/17/17 Diltiazem HCl [Cardizem Cd 120 mg Capsule] 120 mg PO DAILY 10/17/17 Iron Polysaccharide Complex [Ferrex 150] 150 mg PO DAILY 10/17/17 Meclizine HCl [Antivert 25 mg Tablet] 25 mg PO Q8HP PRN 10/17/17 Sucralfate [Carafate Susp 1 gm/10 ml Udcup] 1 gm PO BID 10/17/17 History of Present Illness History of Present Illness: MICHAEL CAMEJO is a 66 year old female, she came to the office for evaluation of abdominal pain associated with diarrhea, dehydration she was in the emergency room on 10/15/2017 for evaluation of abdominal pain. She had a CT scan of the abdomen and pelvis with IV contrast it showed no acute pathology, there is no evidence of diverticulitis there is no perforation, she has a remote history of diverticulitis, she believed she had diverticulitis before there is no evidence of such from the recent CT scan. She was admitted directly from the office for observation and management of her symptoms the initial urinalysis suggests urinary tract infection. Hospital Course Hospital Course: She was admitted for observation take my H&P for details, she was treated with IV fluids on Cipro for presumptive UTI, no organism isolated in the urine Physical Exam Vital Signs: Temp Pulse Resp BP Pulse Ox 98.5 F 71 16 107/70 100 10/18/17 16:00 10/18/17 16:00 10/18/17 16:00 10/18/17 16:00 10/18/17 16:00 Intake & Output 10/17/17 10/18/17 10/19/17 06:59 06:59 06:59 Intake Total 1340 1140 Output Total 1000 1300 Balance 340 -160 Weight 58.5 kg General appearance: PRESENT: no acute distress, well-developed, well-nourished Head exam: PRESENT: atraumatic, normocephalic Eye exam: PRESENT: conjunctiva pink, EOMI, PERRLA. ABSENT: scleral icterus Ear exam: PRESENT: normal external ear exam Mouth exam: PRESENT: moist, tongue midline Neck exam: PRESENT: full ROM Cardiovascular exam: PRESENT: RRR, +S1, +S2 Pulses: PRESENT: normal dorsalis pedis pul, +2 pedal pulses bilateral Vascular exam: PRESENT: normal capillary refill GI/Abdominal exam: PRESENT: normal bowel sounds, soft Rectal exam: PRESENT: deferred Neurological exam: PRESENT: alert, awake, oriented to person, oriented to place , oriented to time, oriented to situation, CN II-XII grossly intact Psychiatric exam: PRESENT: appropriate affect, normal mood Skin exam: PRESENT: dry, intact, warm. ABSENT: cyanosis, rash Results Laboratory Results: 10/17/17 18:08 10/17/17 18:08 10/17/17 10/17/17 18:08 18:08 Sodium 139.9 Potassium 3.5 L Chloride 106 Carbon Dioxide 26 Anion Gap 8 BUN 3 L Creatinine 0.63 Est GFR ( Amer) > 60 Est GFR (Non-Af Amer) > 60 Glucose 61 L Calcium 8.9 Total Bilirubin 0.4 AST 17 ALT 21 Alkaline Phosphatase 62 Total Protein 6.6 Albumin 3.7 TSH 2.42 Free T4 0.87 Qualifiers - * PATEINT BEING DISCHARGED WITH ANY OF THE FOLLOWING DIAGNOSIS?: No VTE patient discharged on overlapping Therapy?: Yes
--- NOTE | 2017-10-18 18:44 | PDOC CONSULTATION ---
Consultation Consult Date: 10/18/17 History of Present Illness Admission Date/PCP: 10/17/17 16:40 ARACELI CORTEZ MD History of Present Illness: This is a 66-year-old patient who was admitted by Dr. Cortez with abdominal pain and possible diverticulitis. She had a an episode of diverticulitis back in 2014 and multiple CAT scans since then have been unremarkable. She had another CAT scan during this admission and this showed no acute findings. Her CBC and Chem-12 were unremarkable except for potassium of 3.5. Thyroid function was normal. She does have a UTI and is on antibiotics. She has a chronic history of abdominal pain that has been going on for years with a history of IBS. She has been to the emergency room almost 50 times within the last year. I saw her in the office 5 days ago with abdominal pain, nausea, and some rectal bleeding. I recommended that she have an EGD and colonoscopy but she had declined to schedule during that visit Past Medical History Cardiac Medical History: Reports: Hypertension Pulmonary Medical History: Reports: Asthma, Bronchitis, Pneumonia GI Medical History: Reports: Crohn's Disease, Diverticulitis, Gastroesophageal Reflux Disease, Hiatal Hernia Musculoskeltal Medical History: Reports: Arthritis Hematology: Reports: Anemia Past Surgical History Past Surgical History: Reports: Appendectomy, Hysterectomy, Tonsillectomy Social History Smoking Status: Never Smoker Frequency of Alcohol Use: None Hx Recreational Drug Use: No Drugs: None Hx Prescription Drug Abuse: No - Advance Directive Resuscitation Status: Full Code Family History Family History: Arthritis, CAD, CVA, DM, Hyperlipidemia, Hypertension, Malignancy, Thyroid Disfunction Parental Family History Reviewed: No Children Family History Reviewed: NA Sibling(s) Family History Reviewed.: NA Medication/Allergy Home Medications: Cyanocobalamin (Vitamin B-12) [Vitamin B-12 Inj 1000 Mcg/1 ml Vial] 1,000 mcg IM Q14D 10/17/17 Dexlansoprazole [Dexilant 60 mg Capsule] 60 mg PO DAILY 10/17/17 Diltiazem HCl [Cardizem Cd 120 mg Capsule] 120 mg PO DAILY 10/17/17 Iron Polysaccharide Complex [Ferrex 150] 150 mg PO DAILY 10/17/17 Meclizine HCl [Antivert 25 mg Tablet] 25 mg PO Q8HP PRN 10/17/17 Sucralfate [Carafate Susp 1 gm/10 ml Udcup] 1 gm PO BID 10/17/17 Allergies/Adverse Reactions: aspirin Allergy (Severe, Verified 10/15/17 12:35) Anaphylaxis Penicillins Allergy (Severe, Verified 10/15/17 12:33) Anaphylaxis acetaminophen [From Vicodin] Allergy (Intermediate, Verified 10/15/17 12:35) Anaphylaxis hydrocodone [From Vicodin] Allergy (Intermediate, Verified 10/15/17 12:35) Anaphylaxis Sulfa (Sulfonamide Antibiotics) Allergy (Intermediate, Verified 10/15/17 12:33) iching, nausea ciprofloxacin [From Cipro] Allergy (Mild, Verified 10/15/17 12:33) itching, nausea codeine Allergy (Mild, Verified 10/15/17 12:35) Diarrhea meperidine HCl [From Demerol] Allergy (Mild, Verified 10/15/17 12:33) heart palpitations Review of Systems All systems: reviewed and no additional remarkable complaints except as stated Physical Exam Vital Signs: Temp Pulse Resp BP Pulse Ox 98.5 F 71 16 107/70 100 10/18/17 16:00 10/18/17 16:00 10/18/17 16:00 10/18/17 16:00 10/18/17 16:00 Intake & Output 10/17/17 10/18/17 10/19/17 06:59 06:59 06:59 Intake Total 1340 1140 Output Total 1000 1300 Balance 340 -160 Weight 58.5 kg Exam: General: Patient is alert and looks well. HEENT: There is no pallor or jaundice. PERRLA. Oropharynx normal Respiratory: No chest deformity. No respiratory distress. Chest wall palpitation was unremarkable. Breath sounds were normal Cardiovascular: Heart sounds 1 and 2 normal with no murmurs. Abdominal: Not distended. Soft and nontender. Liver and spleen not palpable. No ascites demonstrated. Bowel sounds active. Rectal examination was deferred. Extremities: No edema Neurological: Alert and oriented x4. Grossly nonfocal. Normal speech Skin: No significant rash Psychological: Normal affect Results Laboratory Results: 10/17/17 18:08 10/17/17 18:08 10/17/17 10/17/17 18:08 18:08 Sodium 139.9 Potassium 3.5 L Chloride 106 Carbon Dioxide 26 Anion Gap 8 BUN 3 L Creatinine 0.63 Est GFR ( Amer) > 60 Est GFR (Non-Af Amer) > 60 Glucose 61 L Calcium 8.9 Total Bilirubin 0.4 AST 17 ALT 21 Alkaline Phosphatase 62 Total Protein 6.6 Albumin 3.7 TSH 2.42 Free T4 0.87 Assessment & Plan - Diagnosis (1) Abdominal pain Qualifiers: Abdominal location: generalized Qualified Code(s): R10.84 - Generalized abdominal pain Is this a current diagnosis for this admission?: Yes Plan: Her pain is chronic and functional and I doubt we can ever get rid of her pain. She has no evidence of acute abdominal disease at this time. She does need an EGD and colonoscopy but this will be performed as outpatient. She can continue with dicyclomine as needed. She will benefit from an antidepressant and she is currently on Xanax (2) Urinary tract infection Qualifiers: Urinary tract infection type: acute cystitis Hematuria presence: without hematuria Qualified Code(s): N30.00 - Acute cystitis without hematuria Is this a current diagnosis for this admission?: Yes (3) Depression with somatization Is this a current diagnosis for this admission?: Yes
[2017-10-19] MEDS: LANSOPRAZOLE 30 MG TAB.RAP.DR PO SCH (05:06)
[2017-10-19] MEDS: SUCRALFATE SUSP 1 GM/10 ML UDCUP PO SCH ×2 (10:49→18:31)
[2017-10-19] MEDS: IRON POLYSACCHARIDES COMPLEX 150 MG CAPSULE PO SCH (10:50)
[2017-10-19] MEDS: FUROSEMIDE 20 MG TABLET PO SCH (10:51)
[2017-10-19] MEDS: ALPRAZOLAM 0.25 MG TABLET PO SCH ×2 (10:52→20:36)
[2017-10-19] MEDS: DILTIAZEM HCL 120 MG CAP.SR.24H PO SCH (10:53)
[2017-10-19] MEDS: CIPROFLOXACIN 400 MG/D5W RTU 400 MG/200 ML RTUPB IV SCH ×2 (10:53→20:36)
[2017-10-19] MEDS: NORMAL SALINE 1000 ML 1,000 ML IV PRN (15:11)
[2017-10-19 21:35] VITALS: BP 119/62
== END 2017-10-19 23:05 | disposition home or self-care (01) ==
LOC: 5 16:40
PROVIDERS: ADMIT Internal Medicine; ATTEND Internal Medicine
DX: R10.84 Generalized abdominal pain (principal); N30.00 Acute cystitis without hematuria; R19.7 Diarrhea, unspecified; E86.0 Dehydration; K21.9 Gastro-esophageal reflux disease without esophagitis; F32.9 Major depressive disorder, single episode, unspecified; F45.9 Somatoform disorder, unspecified; G89.29 Other chronic pain; D64.9 Anemia, unspecified; R63.0 Anorexia; F41.9 Anxiety disorder, unspecified; K50.90 Crohn's disease, unspecified, without complications; Z68.24 Body mass index [BMI] 24.0-24.9, adult; Z79.899 Other long term (current) drug therapy; Z90.49 Acquired absence of other specified parts of digestive tract; Z90.710 Acquired absence of both cervix and uterus; Z87.19 Personal history of other diseases of the digestive system
CPT/HCPCS: 36415; 87040; 87086; 84439; 84443; 85025; 80076; 80048; 81001; G0378 ×3; A9270 ×11; J7030 ×3; J0744 ×2

== ENCOUNTER → 2017-11-14 | Outpatient (CLI) | payer MEDICARE, MEDICAID ==
[2017-11-14 13:45] LABS: ABSOLUTE BASOPHILS # (AUTO) 0.1 10^3/uL (0.0-0.2); ABSOLUTE EOSINOPHILS # (AUTO) 0.3 10^3/uL (0.0-0.6); ABSOLUTE LYMPHOCYTES (AUTO) 1.4 10^3/uL (0.5-4.7); ABSOLUTE MONOCYTES (AUTO) 0.5 10^3/uL (0.1-1.4); ABSOLUTE NEUT (AUTO) 5.3 10^3/uL (1.7-8.2); BASOPHILS % (AUTO) 0.8 % (0-2); EOSINOPHILS % (AUTO) 4.1 % (0-6); HEMATOCRIT 36.5 % (36.0-47.0); HEMOGLOBIN 12.6 g/dL (12.0-15.5); LYMPHOCYTES % (AUTO) 18.9 % (13-45); MEAN CORPUSCULAR HEMOGLOBIN 32.8 pg (27.0-33.4); MEAN CORPUSCULAR HGB CONC 34.6 g/dL (32.0-36.0); MEAN CORPUSCULAR VOLUME 95 fl (80-97); MONOCYTES % (AUTO) 6.7 % (3-13); PLATELET COUNT 393 10^3/uL (150-450); RED BLOOD COUNT 3.85 10^6/uL (3.72-5.28); RED CELL DISTRIBUTION WIDTH 14.8 % (11.5-14.0); SEGMENTED NEUTROPHILS % (AUTO) 69.5 % (42-78); TOTAL CELLS COUNTED % (AUTO) 100 %; WHITE BLOOD COUNT 7.6 10^3/uL (4.0-10.5)
[2017-11-14 14:07] LABS: ALANINE AMINOTRANSFERASE 25 U/L (9-52); ALBUMIN 4.2 g/dL (3.5-5.0); ALKALINE PHOSPHATASE 66 U/L (38-126); ANION GAP 9 (5-19); ASPARTATE AMINO TRANSFERASE 20 U/L (14-36); BILIRUBIN,DIRECT 0.1 mg/dL (0.0-0.4); BILIRUBIN,TOTAL 0.4 mg/dL (0.2-1.3); BLOOD UREA NITROGEN 6 mg/dL (7-20); CALCIUM 8.8 mg/dL (8.4-10.2); CARBON DIOXIDE 28 mmol/L (22-30); CHLORIDE 103 mmol/L (98-107); GLUCOSE 82 mg/dL (75-110); POTASSIUM 4.4 mmol/L (3.6-5.0)
[2017-11-14 14:44] LABS: FERRITIN 8.33 ng/mL (11.1-264.0)
== END ==
LOC: OD 12:35
PROVIDERS: ATTEND Physician Assistant Medical
DX: D51.9 Vitamin B12 deficiency anemia, unspecified (principal); D50.9 Iron deficiency anemia, unspecified; E55.9 Vitamin D deficiency, unspecified; R07.89 Other chest pain; R00.2 Palpitations; R42 Dizziness and giddiness
CPT/HCPCS: 36415; 80053; 82306; 82607; 82728; 82746; 84443; 85025

== ENCOUNTER 2017-11-18 10:59 | Emergency (ER) | payer MEDICARE, MEDICAID ==
--- NOTE | 2017-11-18 11:44 | ER Document Report ---
ED Medical Screen (RME) - General Chief Complaint: Blurred Vision Stated Complaint: BLURRED VISION Time Seen by Provider: 11/18/17 11:32 Mode of Arrival: Ambulatory Information source: Patient Notes: 66-year-old female who is seen here quite often her random pains presents with complaints of headache. Patient denies any fevers or chills denies any nausea vomiting or diarrhea patient admits headache, and the left side of her head feeling caved in with numbness and pain from her neck to her shoulder ot her arm. I have greeted and performed a rapid initial assessment of this patient. A comprehensive ED assessment and evaluation of the patient, analysis of test results and completion of the medical decision making process will be conducted by additional ED providers. PHYSICAL EXAMINATION: GENERAL: Well-appearing, well-nourished and in no acute distress. HEAD: Atraumatic, normocephalic. EYES: Pupils equal round extraocular movements intact, conjunctiva are normal. ENT: Nares patent NECK: Normal range of motion LUNGS: No respiratory distress Musculoskeletal: Normal range of motion NEUROLOGICAL: Normal speech, normal gait. PSYCH: anxious SKIN: Warm, Dry, normal turgor, no rashes or lesions noted. TRAVEL OUTSIDE OF THE [place] IN LAST 30 DAYS: No - Related Data Allergies/Adverse Reactions: aspirin Allergy (Severe, Verified 10/15/17 12:35) Anaphylaxis Penicillins Allergy (Severe, Verified 10/15/17 12:33) Anaphylaxis acetaminophen [From Vicodin] Allergy (Intermediate, Verified 10/15/17 12:35) Anaphylaxis hydrocodone [From Vicodin] Allergy (Intermediate, Verified 10/15/17 12:35) Anaphylaxis Sulfa (Sulfonamide Antibiotics) Allergy (Intermediate, Verified 10/15/17 12:33) iching, nausea ciprofloxacin [From Cipro] Allergy (Mild, Verified 10/15/17 12:33) itching, nausea codeine Allergy (Mild, Verified 10/15/17 12:35) Diarrhea meperidine HCl [From Demerol] Allergy (Mild, Verified 10/15/17 12:33) heart palpitations Past Medical History - Social History Family history: Reviewed & Not Pertinent - Past Medical History Cardiac Medical History: Reports: Hx Hypertension Pulmonary Medical History: Reports: Hx Asthma, Hx Bronchitis, Hx Pneumonia Neurological Medical History: Denies: Hx Cerebrovascular Accident Renal/ Medical History: Denies: Hx Kidney Stones, Hx Peritoneal Dialysis GI Medical History: Reports: Hx Crohn's Disease, Hx Diverticulitis, Hx Gastroesophageal Reflux Disease, Hx Hiatal Hernia, Hx Irritable Bowel. Denies: Hx Ulcer Musculoskeltal Medical History: Reports Hx Arthritis, Denies Hx Multiple Sclerosis, Reports Hx Musculoskeletal Deformity, Reports Hx Musculoskeletal Trauma Psychiatric Medical History: Reports: Hx Anxiety Denies: Hx Schizophrenia Past Surgical History: Reports: Hx Abdominal Surgery - small intestine removal, Hx Appendectomy, Hx Bowel Surgery - small intestine, Hx Breast Surgery - biopsy , Hx Hysterectomy, Hx Neurologic Surgery - brain tumor removed, Hx Tonsillectomy. Denies: Hx Open Heart Surgery - Immunizations Immunizations up to date: Yes Hx Diphtheria, Pertussis, Tetanus Vaccination: Yes - 09/2010 History of Influenza Vaccine for 05/2017 - 10/2017 Season: Yes Physical Exam - Vital signs Vitals: Temp Pulse Resp BP Pulse Ox 98.4 F 69 16 134/70 H 100 11/18/17 11:07 11/18/17 11:07 11/18/17 11:07 11/18/17 11:07 11/18/17 11:07 Course - Vital Signs Vital signs: Temp Pulse Resp BP Pulse Ox 98.4 F 69 16 134/70 H 100 11/18/17 11:07 11/18/17 11:07 11/18/17 11:07 11/18/17 11:07 11/18/17 11:07 Doctor's Discharge - Discharge Referrals: ARACELI CORTEZ MD [Primary Care Provider] - Follow up as needed
--- NOTE | 2017-11-18 12:40 | RADIOLOGY REPORT (SQ) ---
EXAM DESCRIPTION: CT HEAD WITHOUT COMPLETED DATE/TIME: 11/18/2017 11:57 am REASON FOR STUDY: headache COMPARISON: 09/20/2017 TECHNIQUE: Axial images acquired through the brain without intravenous contrast. Images reviewed wi th bone, brain and subdural windows. Additional sagittal and coronal reconstructions were generated. Images stored on PACS. All CT scanners at this facility use dose modulation, iterative reconstruction, and/or weight based d osing when appropriate to reduce radiation dose to as low as reasonably achievable (ALARA). [facility]: Dose Right [facility]: CareDose [facility]: Dose Right [facility]: Teradose 4D [facility]: [employer] RADIATION DOSE: CT Rad equipment meets quality standard of care and radiation dose reduction techniq ues were employed. CTDIvol: 53.2 mGy. DLP: 964 mGy-cm. mGy. LIMITATIONS: None. FINDINGS: VENTRICLES: Normal size and contour. CEREBRUM: No masses. No hemorrhage. No midline shift. No evidence for acute infarction. Normal gra y/white matter differentiation. No areas of low density in the white matter. CEREBELLUM: No masses. No hemorrhage. No alteration of density. No evidence for acute infarction. EXTRAAXIAL SPACES: No fluid collections. No masses. ORBITS AND GLOBE: No intra- or extraconal masses. Normal contour of globe without masses. CALVARIUM: No fracture. PARANASAL SINUSES: No fluid or mucosal thickening. SOFT TISSUES: No mass or hematoma. OTHER: No other significant finding. IMPRESSION: NORMAL BRAIN CT WITHOUT CONTRAST. EVIDENCE OF ACUTE STROKE: NO. COMMENT: Quality ID # [id number]: Final reports with documentation of one or more dose reduction techniques (e.g., Automated exposure control, adjustment of the mA and/or kV according to patient size, use of iterative reconstruction technique) TECHNICAL DOCUMENTATION: JOB ID: [id number]- All Rights Reserved Reading location - IP/workstation name: [email or web address]
[2017-11-18 13:03] LABS: ABSOLUTE BASOPHILS # (AUTO) 0.1 10^3/uL (0.0-0.2); ABSOLUTE EOSINOPHILS # (AUTO) 0.2 10^3/uL (0.0-0.6); ABSOLUTE LYMPHOCYTES (AUTO) 1.2 10^3/uL (0.5-4.7); ABSOLUTE MONOCYTES (AUTO) 0.5 10^3/uL (0.1-1.4); ABSOLUTE NEUT (AUTO) 5.9 10^3/uL (1.7-8.2); EOSINOPHILS % (AUTO) 2.6 % (0-6); HEMATOCRIT 37.8 % (36.0-47.0); HEMOGLOBIN 12.9 g/dL (12.0-15.5); LYMPHOCYTES % (AUTO) 15.6 % (13-45); MEAN CORPUSCULAR HEMOGLOBIN 32.6 pg (27.0-33.4); MEAN CORPUSCULAR HGB CONC 34.2 g/dL (32.0-36.0); MEAN CORPUSCULAR VOLUME 95 fl (80-97); MONOCYTES % (AUTO) 6.2 % (3-13); PLATELET COUNT 414 10^3/uL (150-450); RED BLOOD COUNT 3.97 10^6/uL (3.72-5.28); RED CELL DISTRIBUTION WIDTH 15.1 % (11.5-14.0); SEGMENTED NEUTROPHILS % (AUTO) 74.6 % (42-78); TOTAL CELLS COUNTED % (AUTO) 100 %; WHITE BLOOD COUNT 7.9 10^3/uL (4.0-10.5)
[2017-11-18 13:16] LABS: APPEARANCE,URINE SLIGHTLY-CLOUDY; BILIRUBIN,URINE NEGATIVE (NEGATIVE); COLOR,URINE STRAW; GLUCOSE, URINE NEGATIVE (NEGATIVE); KETONES,URINE 25 mg/dL (NEGATIVE); LEUKOCYTE ESTERASE,URINE NEGATIVE (NEGATIVE); NITRITE,URINE NEGATIVE (NEGATIVE); PROTEIN,URINE NEGATIVE (NEGATIVE); UROBILINOGEN,URINE NEGATIVE mg/dL (<2.0)
[2017-11-18 13:20] LABS: ANION GAP 10 (5-19); BLOOD UREA NITROGEN 6 mg/dL (7-20); CALCIUM 9.2 mg/dL (8.4-10.2); CARBON DIOXIDE 27 mmol/L (22-30); CHLORIDE 103 mmol/L (98-107); GLUCOSE 79 mg/dL (75-110); POTASSIUM 3.8 mmol/L (3.6-5.0)
[2017-11-18] MEDS ORDERED: ACETAMINOPHEN 325 MG TABLET PO ONE (14:15)
[2017-11-18] MEDS ORDERED: ONDANSETRON 4 MG TAB.RAPDIS PO ONE (14:15)
[2017-11-18] MEDS ORDERED: PROCHLORPERAZINE MALEATE 5 MG TABLET PO ONE (14:15)
--- NOTE | 2017-11-18 14:21 | ER Document Report ---
ED General - General Chief Complaint: Blurred Vision Stated Complaint: BLURRED VISION Time Seen by Provider: 11/18/17 11:32 Mode of Arrival: Ambulatory TRAVEL OUTSIDE OF THE [place] IN LAST 30 DAYS: No - HPI Patient complains to provider of: Multiple complaints Notes: Patient coming into the ER for multiple complaints. Patient states her TMJ is acting up she has a headache she has has numbness and tingling throughout her entire body also complaining of stomach tightness complaining of muscle cramps. Patient also states having changes in her color of her urine. Patient upon my evaluation is lying in stretcher with a blanket pulled over her head. Patient denies any fevers chills nausea vomiting chest pain or specific abdominal pain. Because of the numbness and tingling a CT of the patient's head was performed in triage. Patient states symptoms have been ongoing for approximately 1 week. - Related Data Allergies/Adverse Reactions: aspirin Allergy (Severe, Verified 10/15/17 12:35) Anaphylaxis Penicillins Allergy (Severe, Verified 10/15/17 12:33) Anaphylaxis acetaminophen [From Vicodin] Allergy (Intermediate, Verified 10/15/17 12:35) Anaphylaxis hydrocodone [From Vicodin] Allergy (Intermediate, Verified 10/15/17 12:35) Anaphylaxis Sulfa (Sulfonamide Antibiotics) Allergy (Intermediate, Verified 10/15/17 12:33) iching, nausea ciprofloxacin [From Cipro] Allergy (Mild, Verified 10/15/17 12:33) itching, nausea codeine Allergy (Mild, Verified 10/15/17 12:35) Diarrhea meperidine HCl [From Demerol] Allergy (Mild, Verified 10/15/17 12:33) heart palpitations Past Medical History - General Information source: Patient - Social History Smoking Status: Unknown if Ever Smoked Chew tobacco use (# tins/day): No Frequency of alcohol use: None Drug Abuse: None Family History: Arthritis, CAD, CVA, DM, Hyperlipidemia, Hypertension, Malignancy, Thyroid Disfunction Patient has suicidal ideation: No Patient has homicidal ideation: No - Past Medical History Cardiac Medical History: Reports: Hx Hypertension Pulmonary Medical History: Reports: Hx Asthma, Hx Bronchitis, Hx Pneumonia Neurological Medical History: Denies: Hx Cerebrovascular Accident Renal/ Medical History: Denies: Hx Kidney Stones, Hx Peritoneal Dialysis GI Medical History: Reports: Hx Crohn's Disease, Hx Diverticulitis, Hx Gastroesophageal Reflux Disease, Hx Hiatal Hernia, Hx Irritable Bowel. Denies: Hx Ulcer Musculoskeltal Medical History: Reports Hx Arthritis, Denies Hx Multiple Sclerosis, Reports Hx Musculoskeletal Deformity, Reports Hx Musculoskeletal Trauma Psychiatric Medical History: Reports: Hx Anxiety Denies: Hx Schizophrenia Past Surgical History: Reports: Hx Abdominal Surgery - small intestine removal, Hx Appendectomy, Hx Bowel Surgery - small intestine, Hx Breast Surgery - biopsy , Hx Hysterectomy, Hx Neurologic Surgery - brain tumor removed, Hx Tonsillectomy. Denies: Hx Open Heart Surgery - Immunizations Immunizations up to date: Yes Hx Diphtheria, Pertussis, Tetanus Vaccination: Yes - 09/2010 Hx Pneumococcal Vaccination: 08/24/10 Review of Systems - Review of Systems Constitutional: No symptoms reported EENT: No symptoms reported Cardiovascular: No symptoms reported Respiratory: No symptoms reported Gastrointestinal: No symptoms reported Genitourinary: No symptoms reported Female Genitourinary: No symptoms reported Musculoskeletal: Muscle pain Skin: No symptoms reported Hematologic/Lymphatic: No symptoms reported Neurological/Psychological: Headaches, Numbness Physical Exam - Vital signs Vitals: Temp Pulse Resp BP Pulse Ox 98.4 F 69 16 134/70 H 100 11/18/17 11:07 11/18/17 11:07 11/18/17 11:07 11/18/17 11:07 11/18/17 11:07 Interpretation: Normal - General General appearance: Appears well, Alert - HEENT Head: Normocephalic, Atraumatic Eyes: Normal Pupils: PERRL - Respiratory Respiratory status: No respiratory distress Chest status: Nontender Breath sounds: Normal Chest palpation: Normal - Cardiovascular Rhythm: Regular Heart sounds: Normal auscultation Murmur: No - Abdominal Inspection: Normal Distension: No distension Bowel sounds: Normal Tenderness: Nontender Organomegaly: No organomegaly - Back Back: Normal, Nontender - Extremities General upper extremity: Normal inspection, Nontender, Normal color, Normal ROM , Normal temperature, Other - Patient is wearing a back brace and was able to remove the brace using her upper extremities and lower extremities to adjust herself in the bed without any signs of unilateral weakness or difficulty. General lower extremity: Normal inspection, Nontender, Normal color, Normal ROM , Normal temperature, Normal weight bearing. No: Guille's sign - Neurological Neuro grossly intact: Yes Cognition: Normal Orientation: AAOx4 Ji Coma Scale Eye Opening: Spontaneous [place] Coma Scale Verbal: Oriented [place] Coma Scale Motor: Obeys Commands [place] Coma Scale Total: 15 Speech: Normal Motor strength normal: LUE, RUE, LLE, RLE Sensory: Normal - Psychological Associated symptoms: Normal affect, Normal mood - Skin Skin Temperature: Warm Skin Moisture: Dry Skin Color: Normal Course - Re-evaluation Re-evalutation: 11/18/17 15:59 Multiple evaluations performed the patient each time requesting a 5 mg muscle relaxer. Explained the patient that we would only treat her with Tylenol. Patient states she can only take 325 Tylenol. Laboratory studies not reveal any significant pathology CT scan is also negative. Patient was observed multiple times lying in bed sleeping no obvious distress. Patient was able tolerate p.o. here will be discharged home. - Vital Signs Vital signs: Temp Pulse Resp BP Pulse Ox 98.4 F 69 16 134/70 H 100 11/18/17 11:07 11/18/17 11:07 11/18/17 11:07 11/18/17 11:07 11/18/17 11:07 - Laboratory Result Diagrams: 11/18/17 12:45 11/18/17 12:45 Laboratory results interpreted by me: 11/18/17 11/18/17 11/18/17 12:45 12:45 12:45 RDW 15.1 H BUN 6 L Urine Ketones 25 H Urine Ascorbic Acid 20 H Discharge - Discharge Clinical Impression: Muscle ache Headache Qualifiers: Headache type: unspecified Headache chronicity pattern: unspecified pattern Intractability: not intractable Qualified Code(s): R51 - Headache Condition: Good Disposition: HOME, SELF-CARE Instructions: Headache ([facility]), Myalagia (Muscle Pain) ([facility]) Additional Instructions: Take Tylenol and/or anti-inflammatory medication for your pain. Your head CT and laboratory studies not show any signs of acute infection or acute pathology. I recommend she follow-up with your PCP and the next 3-5 days. Referrals: ARACELI CORTEZ MD [Primary Care Provider] - Follow up as needed
[2017-11-18 15:00] VITALS: BP 142/62
== END 2017-11-18 15:02 | disposition home or self-care (01) ==
LOC: ER 10:59
DX: R25.2 Cramp and spasm (principal); R51 Headache; H53.8 Other visual disturbances; R20.0 Anesthesia of skin; R39.198 Other difficulties with micturition; I10 Essential (primary) hypertension; J44.9 Chronic obstructive pulmonary disease, unspecified
CPT/HCPCS: 99284; 36415; 85025; 80048; 81001; 70450; A9270 ×2; S0183

== ENCOUNTER 2017-12-06 17:45 | Emergency (ER) | payer MEDICARE, MEDICAID ==
--- NOTE | 2017-12-06 19:37 | ER Document Report ---
ED GI/ - General Chief Complaint: Constipation Stated Complaint: POSSIBLE CONSTIPATION Time Seen by Provider: 12/06/17 19:07 Notes: Patient is a 58-year-old female who returns to the emergency room today with a chief complaint of constipation. Patient states that her last bowel movement was about 3 days ago. She denies any vomiting, burping. States that she has been taking milk of magnesia at home as well as doing self disimpaction. She states that she has not followed up with her primary care provider regarding this today. She also states that she has not been able to follow with Dr. Weldon although review of the records showed that he had recommended EGD and colonoscopy which she declined. She denies any focal abdominal pain, fevers or chills, melena. Past medical history significant for IBS, depression, history of diverticulitis. TRAVEL OUTSIDE OF THE [place] IN LAST 30 DAYS: No - Related Data Allergies/Adverse Reactions: aspirin Allergy (Severe, Verified 10/15/17 12:35) Anaphylaxis Penicillins Allergy (Severe, Verified 10/15/17 12:33) Anaphylaxis acetaminophen [From Vicodin] Allergy (Intermediate, Verified 10/15/17 12:35) Anaphylaxis hydrocodone [From Vicodin] Allergy (Intermediate, Verified 10/15/17 12:35) Anaphylaxis Sulfa (Sulfonamide Antibiotics) Allergy (Intermediate, Verified 10/15/17 12:33) iching, nausea ciprofloxacin [From Cipro] Allergy (Mild, Verified 10/15/17 12:33) itching, nausea codeine Allergy (Mild, Verified 10/15/17 12:35) Diarrhea meperidine HCl [From Demerol] Allergy (Mild, Verified 10/15/17 12:33) heart palpitations Past Medical History - Social History Smoking Status: Never Smoker Chew tobacco use (# tins/day): No Frequency of alcohol use: None Drug Abuse: None Family History: Arthritis, CAD, CVA, DM, Hyperlipidemia, Hypertension, Malignancy, Thyroid Disfunction Patient has suicidal ideation: No Patient has homicidal ideation: No - Past Medical History Cardiac Medical History: Reports: Hx Hypertension Pulmonary Medical History: Reports: Hx Asthma, Hx Bronchitis, Hx Pneumonia Neurological Medical History: Denies: Hx Cerebrovascular Accident Renal/ Medical History: Denies: Hx Kidney Stones, Hx Peritoneal Dialysis GI Medical History: Reports: Hx Crohn's Disease, Hx Diverticulitis, Hx Gastroesophageal Reflux Disease, Hx Hiatal Hernia, Hx Irritable Bowel. Denies: Hx Ulcer Musculoskeltal Medical History: Reports Hx Arthritis, Denies Hx Multiple Sclerosis, Reports Hx Musculoskeletal Deformity, Reports Hx Musculoskeletal Trauma Psychiatric Medical History: Reports: Hx Anxiety Denies: Hx Schizophrenia Past Surgical History: Reports: Hx Abdominal Surgery - small intestine removal, Hx Appendectomy, Hx Bowel Surgery - small intestine, Hx Breast Surgery - biopsy , Hx Hysterectomy, Hx Neurologic Surgery - brain tumor removed, Hx Tonsillectomy. Denies: Hx Open Heart Surgery - Immunizations Immunizations up to date: Yes Hx Diphtheria, Pertussis, Tetanus Vaccination: Yes - 09/2010 Hx Pneumococcal Vaccination: 08/24/10 Review of Systems - Review of Systems Constitutional: No symptoms reported Cardiovascular: No symptoms reported Respiratory: No symptoms reported Gastrointestinal: See HPI Female Genitourinary: No symptoms reported Musculoskeletal: No symptoms reported Neurological/Psychological: No symptoms reported -: Yes All other systems reviewed and negative Physical Exam - Vital signs Vitals: Temp Pulse Resp BP Pulse Ox 98.4 F 70 16 113/47 L 100 12/06/17 17:52 12/06/17 17:52 12/06/17 17:52 12/06/17 17:52 12/06/17 17:52 - Notes Notes: PHYSICAL EXAM GENERAL: Alert, interacts well. HEAD: Normocephalic, atraumatic. EYES: Pupils equal, round, and reactive to light. Extraocular movements intact. ENT: Oral mucosa moist, tongue midline. NECK: Full range of motion. Supple. Trachea midline. LUNGS: Clear to auscultation bilaterally, no wheezes, rales, or rhonchi. No respiratory distress. HEART: Regular rate and rhythm. No murmurs, gallops, or rubs. ABDOMEN: Soft, nondistended, nontender. No guarding, rebound, or rigidity.. Bowel sounds present in all 4 quadrants. EXTREMITIES: Moves all 4 extremities spontaneously. No edema, radial and dorsalis pedis pulses 2/4 bilaterally. No cyanosis. NEUROLOGICAL: Alert and oriented x4. Normal speech. PSYCH: Normal affect, normal mood. SKIN: Warm, dry, normal turgor. No rashes or lesions noted. Course - Re-evaluation Re-evalutation: 12/06/17 20:40 Patient is a 66-year-old female who is well-known to our emergency department with a chief complaint of constipation. Vital signs are stable with any evidence of tachycardia, hypotension and patient is afebrile. Physical exam benign. Acute abdomen series shows evidence of constipation without any evidence of obstruction, air-fluid levels. Patient tolerating p.o. without any difficulty. Given the patient has tried multiple interventions at home including milk of magnesia, she is requesting an enema at this time. 12/06/17 22:51 Patient has had multiple bowel movements in the emergency department after an enema. Repeat abdominal exam soft without any distention, active bowel sounds. . States she feels much better and requesting to be discharged home. Discussed with her to follow-up with Dr. Weldon recommending colonoscopy and EGD that he had suggested. - Vital Signs Vital signs: Temp Pulse Resp BP Pulse Ox 98.4 F 70 16 113/47 L 100 12/06/17 17:52 12/06/17 17:52 12/06/17 17:52 12/06/17 17:52 12/06/17 17:52 - Diagnostic Test Radiology reviewed: Image reviewed, Reports reviewed Discharge - Discharge Clinical Impression: Constipation Qualifiers: Constipation type: unspecified constipation type Qualified Code(s): K59.00 - Constipation, unspecified Condition: Good Disposition: HOME, SELF-CARE Additional Instructions: ABDOMINAL PAIN: There are many causes of abdominal pain. Pain can mean a serious problem requiring surgery (such as appendicitis). It can also be an innocent problem that goes away on its own (such as a viral infection). Often, time must pass to determine the cause of pain. The physician does not feel that hospitalization is necessary, at present. Things may change within the next 24 hours. Call the doctor or come back for re- examination if any problems occur, such as: (1) Pain that becomes more severe, steady, or becomes concentrated in one specific area. Also, pain that is more severe with movement or coughing. (2) Vomiting that persists or becomes more frequent. (3) Blood in the vomitus, urine, or bowel movements. Blood in the stool may have a tarry or black appearance. (4) Shaking chills or fever greater than 100 degrees F. (5) The abdomen becomes more distended or swollen. (6) Bowel movements cease. (7) Failure to improve as expected. NORMAL EXAM AND WORKUP: At this time, your examination and workup show no significant abnormality. No significant abnormal physical findings are noted. All laboratory, EKG, and imaging (x-ray, CT scans, ultrasound) studies that were ordered show no significant abnormality. Although your examination and all studies that were ordered showed no significant abnormal finding, there are no examinations and no studies that are 100% accurate. There is always the possibility that some abnormality could exist and not be detected with physical examination or within the limits and capabilities of laboratory and other studies. You should return or follow up as you were instructed on your visit today for further evaluation if your symptoms do not resolve. CONSTIPATION: Constipation is a common problem. It is especially likely as you get older. Constipation is a common cause of abdominal pain, but sometimes causes no symptoms at all. Causes of constipation include certain medications, dehydration, diets, inactivity, and low-fiber intake. Rarely, it can be a symptom of underlying disease. The physician has evaluated you for this. Avoid constipation by eating a diet high in fiber, fruits, and vegetables. Drink plenty of liquids. Get regular exercise. If possible, avoid constipating medicines like narcotic pain medication. Some vitamin tablets can cause constipation. Stool softeners may be needed for difficult cases. An excellent stool softener is Konsyl which is available at [employer], and [employer] [facility]. Just add a teaspoon to a glass of pineapple or orange juice daily or twice a day if needed. Laxatives are useful for occasional constipation. You should use them only when necessary. Too-frequent use can make your bowels dependent on them. Some over the counter laxatives available without prescription are: Milk of Magnesia, 1-2 tablespoons twice a day Dulcolax, 5 mg pill or 10 mg suppository. Citrate of Magnesia, 4-5 ounces a day for a day or two For acute constipation, Fleet's Enemas and Dulcolax suppositories are helpful. Chronic, mcfp use of laxatives or enemas is not a good idea. Your bowel may become dependant on them. You do not need to have a bowel movement every day. Many people do fine with a bowel movement every three or four days. You should call your doctor or return for re-evaluation if you pass blood in the stool, or if you develop fever or increasing abdominal pain. BULK LAXATIVES: Bulk laxatives make the stool softer and bulkier. They're useful for preventing constipation. You can choose between psyllium, methylcellulose, and polycarbophil. They are available without a prescription. Psyllium brand names include Konsyl, Metamucil, Perdiem, Effer-Syllium and Hydrocil. It's available as powder, flavored drink powder, or chewable. The usual dose of psyllium powder is one heaping teaspoon in water each morning, increasing to twice a day if needed. Sauk juice can disguise the slightly grainy texture. Methylcellulose is marketed as Citrucel and other brands. The average dose is two grams in a cup of water one to three times a day. Polycarbophil is marketed as Fiber-Con. Take two tablets with a cup of water one to three times a day. LAXATIVE: A laxative agent has been prescribed for your condition. This should result in passage of stool within 12 hours. Some mild intestinal cramping is common as the hard stool begins to move. You may have loose or runny stools for a short time. Contact your doctor if there is severe cramping, vomiting, or passage of blood. Return for further care if this medicine fails to improve your condition. FOLLOW-UP CARE: If you have been referred to a physician for follow-up care, call the physician s office for an appointment as you were instructed or within the next two days. If you experience worsening or a significant change in your symptoms, notify the physician immediately or return to the Emergency Department at any time for re-evaluation. Prescriptions: Sennosides/Docusate Sodium [Colace 2-in-1 Tablet] 1 each PO DAILY #30 tablet Referrals: KRISTINE WELDON MD [ACTIVE STAFF] - Follow up in 3-5 days ARACELI CORTEZ MD [ACTIVE STAFF] - Follow up in 3-5 days
--- NOTE | 2017-12-06 20:21 | RADIOLOGY REPORT (SQ) ---
EXAM DESCRIPTION: ACUTE ABDOMEN SERIES COMPLETED DATE/TIME: 12/06/2017 8:10 pm REASON FOR STUDY: constipation COMPARISON: 10/11/2017 NUMBER OF VIEWS: Three views. TECHNIQUE: Frontal chest, supine abdomen and upright/ abdomen radiographic images acquired. LIMITATIONS: None. FINDINGS: CHEST: Lungs clear of infiltrates. FREE AIR: None. No abnormal gas collections. BOWEL GAS PATTERN: Nonobstructive gas pattern. Considerable fecal material is present. CALCIFICATIONS: No suspicious calcifications. HARDWARE: None in the abdomen. SOFT TISSUES: No gross mass or suggestion of organomegaly. BONES: No acute fracture. No worrisome bone lesions. OTHER: No other significant finding. IMPRESSION: Constipation. TECHNICAL DOCUMENTATION: JOB ID: [id number] [employer]- All Rights Reserved Reading location - IP/workstation name: [email or web address]
[2017-12-06] MEDS ORDERED: MINERAL OIL ENEMA 133 ML PR ONE (20:40)
[2017-12-06 23:22] VITALS: BP 139/72
== END 2017-12-06 23:48 | disposition home or self-care (01) ==
LOC: ER 17:45
DX: K59.00 Constipation, unspecified (principal); I10 Essential (primary) hypertension; J45.909 Unspecified asthma, uncomplicated
CPT/HCPCS: 99283; 74022; J3490

== ENCOUNTER 2017-12-14 12:11 | Observation (INO) | payer MEDICARE, MEDICAID ==
[2017-12-14] MEDS ORDERED: CYANOCOBALAMIN (VITAMIN B-12) INJ 1000 MCG/1 ML VIAL IM ONE (14:45)
[2017-12-14] MEDS: NORMAL SALINE 1000 ML 1,000 ML IV PRN (14:49)
[2017-12-14 14:55] LABS: HEMATOCRIT 34.5 % (36.0-47.0); HEMOGLOBIN 11.9 g/dL (12.0-15.5); MEAN CORPUSCULAR HEMOGLOBIN 32.6 pg (27.0-33.4); MEAN CORPUSCULAR HGB CONC 34.5 g/dL (32.0-36.0); MEAN CORPUSCULAR VOLUME 94 fl (80-97); PLATELET COUNT 372 10^3/uL (150-450); RED BLOOD COUNT 3.65 10^6/uL (3.72-5.28); RED CELL DISTRIBUTION WIDTH 14.5 % (11.5-14.0); WHITE BLOOD COUNT 7.4 10^3/uL (4.0-10.5)
[2017-12-14 15:15] LABS: ALANINE AMINOTRANSFERASE 23 U/L (9-52); ALBUMIN 3.8 g/dL (3.5-5.0); ALKALINE PHOSPHATASE 61 U/L (38-126); ANION GAP 9 (5-19); ASPARTATE AMINO TRANSFERASE 14 U/L (14-36); BILIRUBIN,DIRECT 0.2 mg/dL (0.0-0.4); BILIRUBIN,TOTAL 0.2 mg/dL (0.2-1.3); BLOOD UREA NITROGEN 6 mg/dL (7-20); CARBON DIOXIDE 27 mmol/L (22-30); CHLORIDE 105 mmol/L (98-107); GLUCOSE 72 mg/dL (75-110); POTASSIUM 3.7 mmol/L (3.6-5.0); SODIUM 141.1 mmol/L (137-145); TOTAL PROTEIN 6.6 g/dL (6.3-8.2)
--- NOTE | 2017-12-14 15:53 | RADIOLOGY REPORT (SQ) ---
EXAM DESCRIPTION: KUB/ABDOMEN (SINGLE VIEW) COMPLETED DATE/TIME: 12/14/2017 2:33 pm REASON FOR STUDY: DEHYDRATION COMPARISON: None. NUMBER OF VIEWS: One view. TECHNIQUE: Supine radiographic image of the abdomen acquired. LIMITATIONS: None. FINDINGS: BOWEL GAS PATTERN: Fecal material extending from the cecum to the rectum. No evidence of obstruction. CALCIFICATIONS: No suspicious calcifications. SOFT TISSUES: No gross mass or suggestion of organomegaly. HARDWARE: Clips right lower quadrant. BONES: No bone lesions or fracture. OTHER: No other significant finding. IMPRESSION: Mild fecal retention. Reading location - IP/workstation name: [email or web address]
[2017-12-14] MEDS ORDERED: PROCHLORPERAZINE MALEATE 5 MG TABLET PO PRN (20:46)
[2017-12-14] MEDS ORDERED: MECLIZINE HCL 25 MG TABLET PO PRN (20:46)
[2017-12-14] MEDS ORDERED: ALBUTEROL SULFATE HFA (90 MCG/PUFF) 200 PUFF/8.5 GM MDI IH PRN (20:46)
[2017-12-14] MEDS ORDERED: DILTIAZEM HCL 120 MG CAP.SR.24H PO ONE (22:00)
[2017-12-14] MEDS ORDERED: LUBIPROSTONE 24 MCG CAPSULE PO ONE (22:00)
[2017-12-14] MEDS ORDERED: TRIAMCINOLONE ACETONIDE 0.5% CREAM 15 GM TP ONE (22:00)
[2017-12-14] MEDS: ALPRAZOLAM 0.5 MG TABLET PO SCH (22:36)
[2017-12-15 00:21] LABS: APPEARANCE,URINE CLEAR; BILIRUBIN,URINE NEGATIVE (NEGATIVE); COLOR,URINE COLORLESS; GLUCOSE, URINE NEGATIVE (NEGATIVE); KETONES,URINE NEGATIVE (NEGATIVE); LEUKOCYTE ESTERASE,URINE NEGATIVE (NEGATIVE); NITRITE,URINE NEGATIVE (NEGATIVE); PROTEIN,URINE NEGATIVE (NEGATIVE); URINE SPECIFIC GRAVITY 1.001; UROBILINOGEN,URINE NEGATIVE mg/dL (<2.0)
[2017-12-15] MEDS: LUBIPROSTONE 24 MCG CAPSULE PO SCH (10:41)
[2017-12-15] MEDS: ALPRAZOLAM 0.5 MG TABLET PO SCH ×2 (10:41→21:15)
[2017-12-15] MEDS: DILTIAZEM HCL 120 MG CAP.SR.24H PO SCH (10:41)
[2017-12-15] MEDS: TRIAMCINOLONE ACETONIDE 0.5% CREAM 15 GM TP SCH ×2 (16:57→18:57)
[2017-12-15] MEDS: NORMAL SALINE 1000 ML 1,000 ML IV PRN (19:59)
--- NOTE | 2017-12-15 20:46 | PDOC H&P ---
History of Present Illness Admission Date/PCP: 12/14/17 12:11 History of Present Illness: MICHAEL CAMEJO is a 66 year old female, She came to the office requesting to be admitted to the hospital because she said she is not able to keep any food down , she has diarrhea, she is vomiting she stated "I am dry to my colon" patient have a high penchant for hospital admission there is no way of trying to convince that she does not need to be admitted to the hospital. She insisted that she needed IV fluid therapy she was brought in for observation to be treated with IV fluid. Past Medical History GI Medical History: Reports: Gastroesophageal Reflux Disease Musculoskeltal Medical History: Reports: Arthritis Psychiatric Medical History: Reports: Depression Hematology: Reports: Anemia Past Surgical History Past Surgical History: Reports: Appendectomy, Hysterectomy, Tonsillectomy Social History Smoking Status: Never Smoker Frequency of Alcohol Use: None Hx Recreational Drug Use: No Drugs: None Hx Prescription Drug Abuse: No Family History Family History: Arthritis, CAD, CVA, DM, Hyperlipidemia, Hypertension, Malignancy, Thyroid Disfunction Parental Family History Reviewed: Yes Children Family History Reviewed: Yes Sibling(s) Family History Reviewed.: Yes Medication/Allergy Home Medications: Cyanocobalamin (Vitamin B-12) [Vitamin B-12 Inj 1000 Mcg/1 ml Vial] 1,000 mcg IM Q14D 10/17/17 Diltiazem HCl [Cardizem Cd 120 mg Capsule] 120 mg PO DAILY 10/17/17 Iron Polysaccharide Complex [Ferrex 150] 150 mg PO DAILY 10/17/17 Meclizine HCl [Antivert 25 mg Tablet] 25 mg PO Q8HP PRN 10/17/17 Albuterol Sulfate [Proair Hfa Inhalation Aerosol 8.5 gm Mdi] 2 puff IH Q4HP PRN 12/14/17 Alprazolam [Xanax 0.5 mg Tablet] 0.5 mg PO Q12 12/14/17 Ergocalciferol (Vitamin D2) [Drisdol 50,000 Unit (1.25MG) Capsule] 50,000 unit PO .QWEEKLY 12/14/17 Lubiprostone [Amitiza 24 Mcg Capsule] 24 mcg PO DAILY 12/14/17 Prochlorperazine Maleate [Compazine 5 Mg Tablet] 5 mg PO Q6HP PRN 12/14/17 Triamcinolone Acetonide [Aristocort 0.5% Cream 15 gm] 1 applic TP BID 12/14/17 Allergies/Adverse Reactions: aspirin Allergy (Severe, Verified 10/15/17 12:35) Anaphylaxis Penicillins Allergy (Severe, Verified 10/15/17 12:33) Anaphylaxis acetaminophen [From Vicodin] Allergy (Intermediate, Verified 10/15/17 12:35) Anaphylaxis hydrocodone [From Vicodin] Allergy (Intermediate, Verified 10/15/17 12:35) Anaphylaxis Sulfa (Sulfonamide Antibiotics) Allergy (Intermediate, Verified 10/15/17 12:33) iching, nausea ciprofloxacin [From Cipro] Allergy (Mild, Verified 10/15/17 12:33) itching, nausea codeine Allergy (Mild, Verified 10/15/17 12:35) Diarrhea meperidine HCl [From Demerol] Allergy (Mild, Verified 10/15/17 12:33) heart palpitations Review of Systems Constitutional: ABSENT: chills, fever(s), headache(s), weight gain, weight loss Eyes: ABSENT: visual disturbances Ears: ABSENT: hearing changes Cardiovascular: ABSENT: chest pain, dyspnea on exertion, edema, orthropnea, palpitations Respiratory: ABSENT: cough, hemoptysis Gastrointestinal: PRESENT: diarrhea, vomiting Genitourinary: ABSENT: dysuria, hematuria Musculoskeletal: ABSENT: joint swelling Integumentary: ABSENT: rash, wounds Neurological: ABSENT: abnormal gait, abnormal speech, confusion, dizziness, focal weakness, syncope Psychiatric: ABSENT: anxiety, depression, homidical ideation, suicidal ideation Endocrine: ABSENT: cold intolerance, heat intolerance, menstrual abnormalities, polydipsia, polyuria Hematologic/Lymphatic: ABSENT: easy bleeding, easy bruising, lymphadenopathy Physical Exam Vital Signs: Temp Pulse Resp BP Pulse Ox 98.7 F 86 18 144/74 H 99 12/15/17 17:00 12/15/17 17:00 12/15/17 17:00 12/15/17 17:00 12/15/17 17:00 Intake & Output 12/14/17 12/15/17 12/16/17 06:59 06:59 06:59 Intake Total 7705 3246 Output Total 800 200 Balance 1994 2386 Weight 60.2 kg General appearance: PRESENT: no acute distress, well-developed, well-nourished Head exam: PRESENT: atraumatic, normocephalic Eye exam: PRESENT: conjunctiva pink, EOMI, PERRLA Ear exam: PRESENT: normal external ear exam Mouth exam: PRESENT: moist, tongue midline Neck exam: PRESENT: full ROM Cardiovascular exam: PRESENT: RRR, +S1, +S2 Pulses: PRESENT: normal dorsalis pedis pul, +2 pedal pulses bilateral Vascular exam: PRESENT: normal capillary refill GI/Abdominal exam: PRESENT: normal bowel sounds, soft Rectal exam: PRESENT: deferred Neurological exam: PRESENT: alert, CN II-XII grossly intact Psychiatric exam: PRESENT: appropriate affect, normal mood Skin exam: PRESENT: dry, intact, warm Results Laboratory Results: 12/14/17 13:59 12/14/17 13:59 12/14/17 23:55 Urine Color COLORLESS Urine Appearance CLEAR Urine pH 8.0 Ur Specific [place] 1.001 Urine Protein NEGATIVE Urine Glucose (UA) NEGATIVE Urine Ketones NEGATIVE Urine Blood NEGATIVE Urine Nitrite NEGATIVE Ur Leukocyte Esterase NEGATIVE Impressions: KUB X-Ray 12/14/17 00:00 IMPRESSION: Mild fecal retention. Assessment & Plan - Diagnosis (1) Dehydration Is this a current diagnosis for this admission?: Yes Plan: She was admitted for IV fluid therapy (2) Gastroenteritis Is this a current diagnosis for this admission?: Yes
--- NOTE | 2017-12-15 20:49 | PDOC DISCHARGE SUMMARY ---
General - Admit/Disc Date/PCP Admission Date/Primary Care Provider: 12/14/17 12:11 Discharge Date: 12/15/17 - Discharge Diagnosis (1) Dehydration Is this a current diagnosis for this admission?: Yes (2) Gastroenteritis Is this a current diagnosis for this admission?: Yes - Additional Information Home Medications: Cyanocobalamin (Vitamin B-12) [Vitamin B-12 Inj 1000 Mcg/1 ml Vial] 1,000 mcg IM Q14D 10/17/17 Diltiazem HCl [Cardizem Cd 120 mg Capsule] 120 mg PO DAILY 10/17/17 Iron Polysaccharide Complex [Ferrex 150] 150 mg PO DAILY 10/17/17 Meclizine HCl [Antivert 25 mg Tablet] 25 mg PO Q8HP PRN 10/17/17 Albuterol Sulfate [Proair HFA Inhalation Aerosol 8.5 gm MDI] 2 puff IH Q4HP PRN 12/14/17 Alprazolam [Xanax 0.5 mg Tablet] 0.5 mg PO Q12 12/14/17 Ergocalciferol (Vitamin D2) [Drisdol 50,000 unit (1.25MG) Capsule] 50,000 unit PO .QWEEKLY 12/14/17 Lubiprostone [Amitiza 24 Mcg Capsule] 24 mcg PO DAILY 12/14/17 Prochlorperazine Maleate [Compazine 5 mg Tablet] 5 mg PO Q6HP PRN 12/14/17 Triamcinolone Acetonide [Aristocort 0.5% Cream 15 gm] 1 applic TP BID 12/14/17 History of Present Illness History of Present Illness: MICHAEL CAMEJO is a 66 year old female, She came to the office requesting to be admitted to the hospital because she said she is not able to keep any food down , she has diarrhea, she is vomiting she stated "I am dry to my colon" patient have a high penchant for hospital admission there is no way of trying to convince that she does not need to be admitted to the hospital. She insisted that she needed IV fluid therapy she was brought in for observation to be treated with IV fluid. Hospital Course Hospital Course: She was admitted for observation, she was treated with IV fluid, hospital course uneventful Physical Exam Vital Signs: Temp Pulse Resp BP Pulse Ox 98.7 F 86 18 144/74 H 99 12/15/17 17:00 12/15/17 17:00 12/15/17 17:00 12/15/17 17:00 12/15/17 17:00 Intake & Output 12/14/17 12/15/17 12/16/17 06:59 06:59 06:59 Intake Total 2795 2586 Output Total 800 200 Balance 1994 238 Weight 60.2 kg General appearance: PRESENT: no acute distress, well-developed, well-nourished Head exam: PRESENT: atraumatic, normocephalic Eye exam: PRESENT: conjunctiva pink, EOMI, PERRLA Ear exam: PRESENT: normal external ear exam Mouth exam: PRESENT: moist, tongue midline Neck exam: PRESENT: full ROM Respiratory exam: PRESENT: clear to auscultation franky Cardiovascular exam: PRESENT: RRR, +S1, +S2 Vascular exam: PRESENT: normal capillary refill GI/Abdominal exam: PRESENT: normal bowel sounds, soft Rectal exam: PRESENT: deferred Neurological exam: PRESENT: alert, CN II-XII grossly intact Skin exam: PRESENT: dry, intact, warm. ABSENT: cyanosis, rash Results Laboratory Results: 12/14/17 13:59 12/14/17 13:59 12/14/17 23:55 Urine Color COLORLESS Urine Appearance CLEAR Urine pH 8.0 Ur Specific [place] 1.001 Urine Protein NEGATIVE Urine Glucose (UA) NEGATIVE Urine Ketones NEGATIVE Urine Blood NEGATIVE Urine Nitrite NEGATIVE Ur Leukocyte Esterase NEGATIVE Impressions: KUB X-Ray 12/14/17 00:00 IMPRESSION: Mild fecal retention. Qualifiers - * PATIENT BEING DISCHARGED WITH ANY OF THE FOLLOWING DIAGNOSIS: No VTE patient discharged on overlapping Therapy?: Yes
[2017-12-16] MEDS: NORMAL SALINE 1000 ML 1,000 ML IV PRN (06:22)
[2017-12-16 08:04] VITALS: BP 118/52
[2017-12-16] MEDS: ALPRAZOLAM 0.5 MG TABLET PO SCH (09:17)
[2017-12-16] MEDS: LUBIPROSTONE 24 MCG CAPSULE PO SCH (09:18)
[2017-12-16] MEDS: DILTIAZEM HCL 120 MG CAP.SR.24H PO SCH (09:18)
[2017-12-16] MEDS: TRIAMCINOLONE ACETONIDE 0.5% CREAM 15 GM TP SCH (09:19)
[2017-12-18] MEDS ORDERED: ERGOCALCIFEROL (VITAMIN D2) 50000 UNIT (1.25 MG) CAPSULE PO SCH (10:00)
[2017-12-20] MEDS ORDERED: CYANOCOBALAMIN (VITAMIN B-12) INJ 1000 MCG/1 ML VIAL IM SCH (21:00)
== END 2017-12-16 10:30 | disposition home or self-care (01) ==
LOC: 4N 12:11
PROVIDERS: ADMIT Internal Medicine; ATTEND Internal Medicine
DX: E86.0 Dehydration (principal); K52.9 Noninfective gastroenteritis and colitis, unspecified; Z90.49 Acquired absence of other specified parts of digestive tract; Z90.710 Acquired absence of both cervix and uterus; Z79.899 Other long term (current) drug therapy; Z98.890 Other specified postprocedural states; Z87.19 Personal history of other diseases of the digestive system
CPT/HCPCS: 36415; 87086; 82962; 85027; 80076; 80048; 81001; 74018; A9270 ×10; J3420; J3490; J7030 ×3; G0378; G0379

== ENCOUNTER → 2017-12-26 | Outpatient (CLI) | payer MEDICARE, MEDICAID ==
[2017-12-26 13:34] LABS: ABSOLUTE EOSINOPHILS # (AUTO) 0.4 10^3/uL (0.0-0.6); ABSOLUTE LYMPHOCYTES (AUTO) 1.5 10^3/uL (0.5-4.7); ABSOLUTE MONOCYTES (AUTO) 0.4 10^3/uL (0.1-1.4); ABSOLUTE NEUT (AUTO) 4.3 10^3/uL (1.7-8.2); BASOPHILS % (AUTO) 0.7 % (0-2); EOSINOPHILS % (AUTO) 6.5 % (0-6); HEMATOCRIT 38.9 % (36.0-47.0); HEMOGLOBIN 13.3 g/dL (12.0-15.5); LYMPHOCYTES % (AUTO) 21.9 % (13-45); MEAN CORPUSCULAR HEMOGLOBIN 32.4 pg (27.0-33.4); MEAN CORPUSCULAR HGB CONC 34.3 g/dL (32.0-36.0); MEAN CORPUSCULAR VOLUME 95 fl (80-97); MONOCYTES % (AUTO) 6.3 % (3-13); PLATELET COUNT 388 10^3/uL (150-450); RED BLOOD COUNT 4.12 10^6/uL (3.72-5.28); RED CELL DISTRIBUTION WIDTH 14.1 % (11.5-14.0); SEGMENTED NEUTROPHILS % (AUTO) 64.6 % (42-78); TOTAL CELLS COUNTED % (AUTO) 100 %; WHITE BLOOD COUNT 6.7 10^3/uL (4.0-10.5)
[2017-12-26 13:39] LABS: ALANINE AMINOTRANSFERASE 10 U/L (9-52); ALBUMIN 4.7 g/dL (3.5-5.0); ALKALINE PHOSPHATASE 71 U/L (38-126); ANION GAP 14 (5-19); ASPARTATE AMINO TRANSFERASE 23 U/L (14-36); BILIRUBIN,DIRECT 0.3 mg/dL (0.0-0.4); BILIRUBIN,TOTAL 0.4 mg/dL (0.2-1.3); BLOOD UREA NITROGEN 6 mg/dL (7-20); CALCIUM 9.8 mg/dL (8.4-10.2); CARBON DIOXIDE 27 mmol/L (22-30); CHLORIDE 103 mmol/L (98-107); GLUCOSE 81 mg/dL (75-110); SODIUM 143.9 mmol/L (137-145); TOTAL PROTEIN 8.3 g/dL (6.3-8.2)
== END ==
LOC: OD 12:30
PROVIDERS: ATTEND Physician Assistant Medical
DX: R00.2 Palpitations (principal); D50.9 Iron deficiency anemia, unspecified; R42 Dizziness and giddiness; R53.83 Other fatigue
CPT/HCPCS: 36415; 80053; 82728; 84443; 85025

== ENCOUNTER 2017-12-31 23:17 | Emergency (ER) | payer MEDICARE, MEDICAID ==
[2018-01-01] MEDS ORDERED: BENZONATATE 100 MG CAPSULE PO ONE (01:00)
--- NOTE | 2018-01-01 01:00 | ER Document Report ---
ED General - General Chief Complaint: Other Stated Complaint: NOT FEELING GOOD Time Seen by Provider: 01/01/18 00:55 Cannot obtain history due to: Mentally challenged Notes: Patient is a 67-year-old female well-known to me or to the emergency room who presents by EMS with complaints of feeling generally unwell after cleaning all day. Patient reports that she was doing cleaning supplies or cleaning her home today feels that she may have inhaled to many of the fumes. She states that she has had some mild coughing as well as felt generally "bad". Patient does proceed to list a multitude of complaints that include chronic abdominal pain, palpitations, intermittent lightheadedness, and concerns about her blood pressure. Patient does note that she is worried that her blood pressure went from being 159 systolic to 120 systolic upon arrival here to the emergency department and states "my blood pressure dropped too fast and now I am cold". TRAVEL OUTSIDE OF THE [place] IN LAST 30 DAYS: No COUNTRY TRAVELED TO/FROM: [place] - Related Data Allergies/Adverse Reactions: aspirin Allergy (Severe, Verified 12/31/17 23:21) Anaphylaxis Penicillins Allergy (Severe, Verified 12/31/17 23:21) Anaphylaxis acetaminophen [From Vicodin] Allergy (Intermediate, Verified 12/31/17 23:21) Anaphylaxis hydrocodone [From Vicodin] Allergy (Intermediate, Verified 12/31/17 23:21) Anaphylaxis Sulfa (Sulfonamide Antibiotics) Allergy (Intermediate, Verified 12/31/17 23:21) iching, nausea ciprofloxacin [From Cipro] Allergy (Mild, Verified 12/31/17 23:21) itching, nausea codeine Allergy (Mild, Verified 12/31/17 23:21) Diarrhea meperidine HCl [From Demerol] Allergy (Mild, Verified 12/31/17 23:21) heart palpitations Past Medical History - General Information source: Patient - Social History Smoking Status: Never Smoker Frequency of alcohol use: None Drug Abuse: None Lives with: Alone Family History: Arthritis, CAD, CVA, DM, Hyperlipidemia, Hypertension, Malignancy, Thyroid Disfunction Neurological Medical History: Denies: Hx Cerebrovascular Accident Renal/ Medical History: Denies: Hx Kidney Stones, Hx Peritoneal Dialysis GI Medical History: Reports: Hx Gastroesophageal Reflux Disease, Hx Irritable Bowel. Denies: Hx Ulcer Musculoskeltal Medical History: Reports Hx Arthritis, Denies Hx Multiple Sclerosis, Reports Hx Musculoskeletal Deformity, Reports Hx Musculoskeletal Trauma Psychiatric Medical History: Reports: Hx Anxiety, Hx Depression Denies: Hx Schizophrenia Past Surgical History: Reports: Hx Abdominal Surgery - small intestine removal, Hx Appendectomy, Hx Bowel Surgery - small intestine, Hx Breast Surgery - biopsy , Hx Hysterectomy, Hx Neurologic Surgery - brain tumor removed, Hx Tonsillectomy. Denies: Hx Open Heart Surgery - Immunizations Immunizations up to date: Yes Hx Diphtheria, Pertussis, Tetanus Vaccination: Yes - 09/2010 Hx Pneumococcal Vaccination: 08/24/10 Review of Systems - Review of Systems Notes: Constitutional: Negative for fever. HENT: Negative for sore throat. Eyes: Negative for visual changes. Cardiovascular: Negative for chest pain. Respiratory: Negative for shortness of breath. Positive for cough Gastrointestinal: Positive for chronic abdominal pain Genitourinary: Negative for dysuria. Musculoskeletal: Negative for back pain. Skin: Negative for rash. Neurological: Negative for headaches, weakness or numbness. 10 point ROS negative except as marked above and in HPI. Physical Exam - Vital signs Vitals: Temp Pulse Resp BP Pulse Ox 98.3 F 69 18 126/52 H 100 12/31/17 23:34 12/31/17 23:34 12/31/17 23:34 12/31/17 23:34 12/31/17 23:34 Interpretation: Normal Notes: PHYSICAL EXAMINATION: GENERAL: Well-appearing, well-nourished and in no acute distress. HEAD: Atraumatic, normocephalic. EYES: Pupils equal round and reactive to light, extraocular movements intact, sclera anicteric, conjunctiva are normal. ENT: nares patent, oropharynx clear without exudates. Moist mucous membranes. NECK: Normal range of motion, supple without lymphadenopathy LUNGS: Breath sounds clear to auscultation bilaterally and equal. No wheezes rales or rhonchi. HEART: Regular rate and rhythm without murmurs ABDOMEN: Soft, nontender, normoactive bowel sounds. No guarding, no rebound. No masses appreciated. EXTREMITIES: Normal range of motion, no pitting or edema. No cyanosis. NEUROLOGICAL: No focal neurological deficits. Moves all extremities spontaneously and on command. PSYCH: Anxious, loquacious SKIN: Warm, Dry, normal turgor, no rashes or lesions noted. Course - Re-evaluation Re-evalutation: 01/01/18 00:55 Patient presents with multiple vague complaints that did not appear to be concerning for any acute life-threatening pathology. Vitals are within normal limits at triage and at time of discharge. Physical examination is unremarkable. Patient has tolerated oral intake without difficulty. Patient was not noted to be in distress at any point during their ER visit. At this time, based on the reassuring evaluation, I do not suspect an acute PA, pulmonary embolus, aortic dissection, acute intra-abdominal pathology, stroke, or sepsis.Will discharge with return precautions and follow-up recommendations. Verbal discharge instructions given a the bedside and opportunity for questions given. Medication warnings reviewed. Patient is in agreement with this plan and has verbalized understanding of return precautions and the need for primary care follow-up in the next 24-72 hours. - Vital Signs Vital signs: Temp Pulse Resp BP Pulse Ox 98.3 F 71 20 151/70 H 99 12/31/17 23:34 01/01/18 01:32 01/01/18 01:32 01/01/18 01:32 01/01/18 01:32 Discharge - Discharge Clinical Impression: Multiple complaints, Cough Condition: Good Disposition: HOME, SELF-CARE Additional Instructions: Please return to the emergency room immediately if you experience any concerning symptoms including high fevers, severe headache, chest pain, difficulty breathing, abdominal pain, slurred speech, numbness or weakness in your arms or legs, or any other symptom that concerns you.
[2018-01-01] MEDS ORDERED: ONDANSETRON 4 MG TAB.RAPDIS PO ONE (01:01)
[2018-01-01 01:33] VITALS: BP 151/70
== END 2018-01-01 01:20 | disposition home or self-care (01) ==
LOC: ER 23:17
DX: R05 Cough (principal); R42 Dizziness and giddiness; R00.2 Palpitations; R10.9 Unspecified abdominal pain; G89.29 Other chronic pain; Z88.2 Allergy status to sulfonamides; Z88.1 Allergy status to other antibiotic agents; Z87.892 Personal history of anaphylaxis; Z88.6 Allergy status to analgesic agent; Z88.0 Allergy status to penicillin; Z88.5 Allergy status to narcotic agent
CPT/HCPCS: 99283; A9270 ×2; S0119

== ENCOUNTER → 2018-01-05 | Outpatient (CLI) | payer MEDICARE, MEDICAID ==
--- NOTE | 2018-01-05 14:58 | RADIOLOGY REPORT (SQ) ---
EXAM DESCRIPTION: CHEST PA/LATERAL COMPLETED DATE/TIME: 01/05/2018 2:39 pm REASON FOR STUDY: COUGH COMPARISON: 09/20/2017 EXAM PARAMETERS: NUMBER OF VIEWS: two views TECHNIQUE: Digital Frontal and Lateral radiographic views of the chest acquired. RADIATION DOSE: NA LIMITATIONS: none FINDINGS: LUNGS AND PLEURA: No opacities, masses or pneumothorax. No pleural effusion. There is a m i nonspecific prominence of interstitial markings MEDIASTINUM AND HILAR STRUCTURES: No masses or contour abnormalities. HEART AND VASCULAR STRUCTURES: Heart normal size. No evidence for failure. BONES: No acute findings. HARDWARE: None in the chest. OTHER: No other significant finding. IMPRESSION: NO SIGNIFICANT RADIOGRAPHIC FINDING IN THE CHEST. TECHNICAL DOCUMENTATION: JOB ID: [id number] [email or web address]- All Rights Reserved Reading location - IP/workstation name: [email or web address]
== END ==
LOC: OD 14:25
PROVIDERS: ATTEND Internal Medicine
DX: R05 Cough (principal)
CPT/HCPCS: 71046

== ENCOUNTER 2018-01-07 19:49 | Emergency (ER) | payer MEDICARE, MEDICAID ==
[2018-01-07] MEDS ORDERED: ALBUTEROL SULFATE HFA (90 MCG/PUFF) 200 PUFF/8.5 GM MDI IH ONE (20:28)
[2018-01-07] MEDS ORDERED: IPRATROPIUM/ALBUTEROL 0.5-2.5 MG/3 ML AMPUL NEB ONE (20:28)
--- NOTE | 2018-01-07 21:24 | ER Document Report ---
ED General - General Chief Complaint: Cough Stated Complaint: COUGH Time Seen by Provider: 01/07/18 20:16 Information source: Patient TRAVEL OUTSIDE OF THE [place] IN LAST 30 DAYS: No COUNTRY TRAVELED TO/FROM: [facility] Notes: Patient is a 67-year-old female very well-known to the emergency department for multiple visits with multiple complaints presents for the fifth time this month this time reporting cough from mold exposure. The patient requests refill of Zithromax and her albuterol inhaler for this problem. She states she is out of both of these. She also reports chronic vertigo and wants a refill of meclizine. She also reports she needs cough syrup. She also reports she wants another cream for her chronic dermatitis on her arms. She denies any fever or chest pain or chills or change in her chronic abdominal pain from IBS. She reports no chest pain or vomiting or constipation or diarrhea or dysuria. She states her vertigo is no different than normal. She denies any numbness or paresthesia. She reports no headache. No neck stiffness. - Related Data Allergies/Adverse Reactions: aspirin Allergy (Severe, Verified 01/07/18 19:50) Anaphylaxis Penicillins Allergy (Severe, Verified 01/07/18 19:50) Anaphylaxis acetaminophen [From Vicodin] Allergy (Intermediate, Verified 01/07/18 19:50) Anaphylaxis hydrocodone [From Vicodin] Allergy (Intermediate, Verified 01/07/18 19:50) Anaphylaxis Sulfa (Sulfonamide Antibiotics) Allergy (Intermediate, Verified 01/07/18 19:50) iching, nausea ciprofloxacin [From Cipro] Allergy (Mild, Verified 01/07/18 19:50) itching, nausea codeine Allergy (Mild, Verified 01/07/18 19:50) Diarrhea meperidine HCl [From Demerol] Allergy (Mild, Verified 01/07/18 19:50) heart palpitations Past Medical History - General Information source: Patient - Social History Smoking Status: Never Smoker Chew tobacco use (# tins/day): No Frequency of alcohol use: None Drug Abuse: None Family History: Arthritis, CAD, CVA, DM, Hyperlipidemia, Hypertension, Malignancy, Thyroid Disfunction Patient has suicidal ideation: No Patient has homicidal ideation: No Neurological Medical History: Denies: Hx Cerebrovascular Accident Renal/ Medical History: Denies: Hx Kidney Stones, Hx Peritoneal Dialysis GI Medical History: Reports: Hx Gastroesophageal Reflux Disease, Hx Irritable Bowel. Denies: Hx Ulcer Musculoskeltal Medical History: Reports Hx Arthritis, Denies Hx Multiple Sclerosis, Reports Hx Musculoskeletal Deformity, Reports Hx Musculoskeletal Trauma Psychiatric Medical History: Reports: Hx Anxiety, Hx Depression Denies: Hx Schizophrenia Past Surgical History: Reports: Hx Abdominal Surgery - small intestine removal, Hx Appendectomy, Hx Bowel Surgery - small intestine, Hx Breast Surgery - biopsy , Hx Hysterectomy, Hx Neurologic Surgery - brain tumor removed, Hx Tonsillectomy. Denies: Hx Open Heart Surgery - Immunizations Immunizations up to date: Yes Hx Diphtheria, Pertussis, Tetanus Vaccination: Yes - 09/2010 Hx Pneumococcal Vaccination: 08/24/10 Review of Systems - Review of Systems Notes: REVIEW OF SYSTEMS: CONSTITUTIONAL : Denies fever, chills, or sweats. EENT: Denies eye, ear, throat, or mouth pain or symptoms. Denies throat, tongue, or mouth swelling or difficulty swallowing. CARDIOVASCULAR: Denies chest pain. Denies palpitations or racing or irregular heart beat. Denies ankle edema. RESPIRATORY: Denies shortness of breath, difficulty breathing GASTROINTESTINAL: Denies abdominal distention. Denies nausea, vomiting, or diarrhea. Denies blood in vomitus, stools, or per rectum. Denies black, tarry stools. Denies constipation. GENITOURINARY: Denies difficulty urinating, painful urination, burning, frequency, blood in urine, or discharge. FEMALE GENITOURINARY: Denies vaginal bleeding, heavy or abnormal periods, irregular periods. Denies vaginal discharge or odor. MUSCULOSKELETAL: Denies back or neck pain or stiffness. Denies joint pain or swelling. SKIN: No change in chronic dermatitis rash on arms. She states it is hereditary. HEMATOLOGIC : Denies easy bruising or bleeding. LYMPHATIC: Denies swollen, enlarged glands. NEUROLOGICAL: Denies confusion or altered mental status. Denies passing out or loss of consciousness. Denies dizziness or lightheadedness. Denies headache. Denies weakness or paralysis or loss of use of either side. Denies problems with gait or speech. Denies sensory loss, numbness, or tingling. Denies seizures. PSYCHIATRIC: Denies anxiety or stress. Denies depression, suicidal ideation, or homicidal ideation. ALL OTHER SYSTEMS REVIEWED AND NEGATIVE. Dictation was performed using Dragon voice recognition software Physical Exam - Vital signs Vitals: Temp Pulse Resp BP Pulse Ox 97.6 F 68 16 141/80 H 100 01/07/18 19:58 01/07/18 19:58 01/07/18 19:58 01/07/18 19:58 01/07/18 19:58 - Notes Notes: PHYSICAL EXAMINATION: GENERAL: Well-appearing, well-nourished and in no acute distress. HEAD: Atraumatic, normocephalic. EYES: Pupils equal round and reactive to light, extraocular movements intact, conjunctiva are normal. ENT: Nares patent, oropharynx clear without exudates. Moist mucous membranes. Tympanic membranes clear. NECK: Normal range of motion, supple without lymphadenopathy LUNGS: Scant wheeze noted. No rails. HEART: Regular rate and rhythm without murmurs ABDOMEN: Soft, nontender, nondistended abdomen. No guarding, no rebound. No masses appreciated. Female : deferred Musculoskeletal: Normal range of motion, no pitting or edema. No cyanosis. NEUROLOGICAL: Cranial nerves grossly intact. Normal speech, normal gait. Normal sensory, motor exams. No nystagmus. No cerebellar ataxia. No other acute process noted. PSYCH: Normal mood, normal affect. SKIN: Mild nonspecific dermatitis noted on the arms. No cellulitis or abscess.. Course - Re-evaluation Re-evalutation: 01/07/18 21:35 Patient continued to present with chronic medical complaints. She was instructed to follow-up with her regular practitioner related to these. After DuoNeb, repeat exam should no wheezing. There is a good oxygen saturation. The patient was given albuterol metered-dose inhaler to take home with her. No clinical suggestion for pneumonia or congestive heart failure, the patient just had a chest x-ray for similar complaint 2 days ago. No evidence for cellulitis no evidence for pulmonary embolus no evidence for any change in the patient's report of vertigo, but she has normal gait and is neurologically intact currently. - Vital Signs Vital signs: Temp Pulse Resp BP Pulse Ox 97.6 F 68 16 141/80 H 100 01/07/18 19:58 01/07/18 19:58 01/07/18 19:58 01/07/18 19:58 01/07/18 19:58 Discharge - Discharge Clinical Impression: Bronchitis, Vertigo, Dermatitis COPD (chronic obstructive pulmonary disease) Qualifiers: COPD type: unspecified COPD Qualified Code(s): J44.9 - Chronic obstructive pulmonary disease, unspecified Condition: Stable Disposition: HOME, SELF-CARE Instructions: Bronchitis ([facility]), Chronic Obstructive Lung Disease ([facility]), Corticosteroid Medication ([facility]), Vertigo ([facility]) Prescriptions: Meclizine HCl 25 mg PO Q8HP PRN #20 tab.chew PRN Reason: Albuterol Sulfate [Proair HFA Inhalation Aerosol 8.5 gm MDI] 2 puff IH Q4H PRN # 1 mdi PRN Reason: Azithromycin [Zithromax 200 mg/5 ml Susp] 1,200 mg PO ASDIR PRN #1200 bottle PRN Reason: Dextromethorphan HBr/Chlor-Mal [Robitussin Cough-Cold Liquid] 5 ml PO Q6 #150 liquid Hydrocortisone/Oatmeal/Aloe/E [Hydrocortisone 1% Cream] 28.4 gm TP BID #30 cream.gm. Hydrocortisone/Oatmeal/Aloe/E [Hydrocortisone 1% Cream] 28.4 gm TP BID #30 cream.gm. Referrals: ARACELI CORTEZ MD [Primary Care Provider] - Follow up as needed
[2018-01-07 21:58] VITALS: BP 128/83
== END 2018-01-07 21:59 | disposition home or self-care (01) ==
LOC: ER 19:49
DX: J40 Bronchitis, not specified as acute or chronic (principal); J44.9 Chronic obstructive pulmonary disease, unspecified; R05 Cough; R42 Dizziness and giddiness; L30.9 Dermatitis, unspecified; Z77.120 Contact with and (suspected) exposure to mold (toxic); Z88.1 Allergy status to other antibiotic agents; Z88.2 Allergy status to sulfonamides; Z87.892 Personal history of anaphylaxis; Z88.6 Allergy status to analgesic agent; Z88.0 Allergy status to penicillin; Z88.5 Allergy status to narcotic agent
CPT/HCPCS: 94640; 99283; J3490; A9270; J7620

== ENCOUNTER 2018-01-22 14:09 | Emergency (ER) | payer MEDICARE, MEDICAID ==
[2018-01-22 14:29] VITALS: BP 119/71
--- NOTE | 2018-01-22 14:48 | ER Document Report ---
ED General - General Chief Complaint: Abdominal Pain Stated Complaint: ABDOMINAL PAIN Time Seen by Provider: 01/22/18 14:27 Mode of Arrival: Ambulatory Information source: Patient, [facility] Records Notes: 67-year-old female extensive history of visits to the emergency department for abdominal pain presents with complaints of abdominal pain. Patient states she has IBS diverticulitis notes she has not been on antibiotics since 2014, she denies any vomiting states she feels nauseous that she had a temperature yesterday 101 but is afebrile here. Patient notes she took her meclizine for her chronic dizziness. Patient denies any rectal bleeding. Patient also notes that she has possible bunion on the bottom of her right foot. Patient notes her abdominal pain has been ongoing now for 3-4 weeks at which time she is already been seen multiple times by her primary care physician in the emergency department TRAVEL OUTSIDE OF THE [place] IN LAST 30 DAYS: No COUNTRY TRAVELED TO/FROM: [facility] Onset: Other Onset/Duration: Intermittent Quality of pain: Cramping Severity: Mild Pain Level: 1 Associated symptoms: Nausea Exacerbated by: Walking Relieved by: Denies Similar symptoms previously: Yes Recently seen / treated by doctor: Yes - Related Data Allergies/Adverse Reactions: aspirin Allergy (Severe, Verified 01/07/18 19:50) Anaphylaxis Penicillins Allergy (Severe, Verified 01/07/18 19:50) Anaphylaxis acetaminophen [From Vicodin] Allergy (Intermediate, Verified 01/07/18 19:50) Anaphylaxis hydrocodone [From Vicodin] Allergy (Intermediate, Verified 01/07/18 19:50) Anaphylaxis Sulfa (Sulfonamide Antibiotics) Allergy (Intermediate, Verified 01/07/18 19:50) iching, nausea ciprofloxacin [From Cipro] Allergy (Mild, Verified 01/07/18 19:50) itching, nausea codeine Allergy (Mild, Verified 01/07/18 19:50) Diarrhea meperidine HCl [From Demerol] Allergy (Mild, Verified 01/07/18 19:50) heart palpitations Past Medical History - Social History Smoking Status: Never Smoker Cigarette use (# per day): No Chew tobacco use (# tins/day): No Smoking Education Provided: No Frequency of alcohol use: None Drug Abuse: None Family History: Arthritis, CAD, CVA, DM, Hyperlipidemia, Hypertension, Malignancy, Thyroid Disfunction Patient has suicidal ideation: No Patient has homicidal ideation: No Neurological Medical History: Denies: Hx Cerebrovascular Accident Renal/ Medical History: Denies: Hx Kidney Stones, Hx Peritoneal Dialysis GI Medical History: Reports: Hx Gastroesophageal Reflux Disease, Hx Irritable Bowel. Denies: Hx Ulcer Musculoskeltal Medical History: Reports Hx Arthritis, Denies Hx Multiple Sclerosis, Reports Hx Musculoskeletal Deformity, Reports Hx Musculoskeletal Trauma Psychiatric Medical History: Reports: Hx Anxiety, Hx Depression Denies: Hx Schizophrenia Past Surgical History: Reports: Hx Abdominal Surgery - small intestine removal, Hx Appendectomy, Hx Bowel Surgery - small intestine, Hx Breast Surgery - biopsy , Hx Hysterectomy, Hx Neurologic Surgery - brain tumor removed, Hx Tonsillectomy. Denies: Hx Open Heart Surgery - Immunizations Immunizations up to date: Yes Hx Diphtheria, Pertussis, Tetanus Vaccination: Yes - 09/2010 Hx Pneumococcal Vaccination: 08/24/10 Review of Systems - Review of Systems Notes: REVIEW OF SYSTEMS: CONSTITUTIONAL : Denies fever, chills, or sweats. Denies recent illness. EENT: Denies eye, ear, throat, or mouth pain or symptoms. Denies nasal or sinus congestion or discharge. Denies throat, tongue, or mouth swelling or difficulty swallowing. CARDIOVASCULAR: Denies chest pain. Denies palpitations or racing or irregular heart beat. Denies ankle edema. RESPIRATORY: Denies cough, cold, or chest congestion. Denies shortness of breath, difficulty breathing, or wheezing. GASTROINTESTINAL: Admits to abdominal cramping nausea GENITOURINARY: Denies difficulty urinating, painful urination, burning, frequency, blood in urine, or discharge. FEMALE GENITOURINARY: Denies vaginal bleeding, heavy or abnormal periods, irregular periods. Denies vaginal discharge or odor. MUSCULOSKELETAL: Denies back or neck pain or stiffness. Denies joint pain or swelling. SKIN: Admits to pain under her foot HEMATOLOGIC : Denies easy bruising or bleeding. LYMPHATIC: Denies swollen, enlarged glands. NEUROLOGICAL: Denies confusion or altered mental status. Denies passing out or loss of consciousness. Denies dizziness or lightheadedness. Denies headache. Denies weakness or paralysis or loss of use of either side. Denies problems with gait or speech. Denies sensory loss, numbness, or tingling. Denies seizures. PSYCHIATRIC: Denies anxiety or stress. Denies depression, suicidal ideation, or homicidal ideation. ALL OTHER SYSTEMS REVIEWED AND NEGATIVE. PHYSICAL EXAMINATION: GENERAL: Well-appearing, well-nourished and in no acute distress. HEAD: Atraumatic, normocephalic. EYES: Pupils equal round and reactive to light, extraocular movements intact, conjunctiva are normal. ENT: Nares patent, oropharynx clear without exudates. Moist mucous membranes. NECK: Normal range of motion, supple without lymphadenopathy LUNGS: Breath sounds clear to auscultation bilaterally and equal. No wheezes rales or rhonchi. HEART: Regular rate and rhythm without murmurs ABDOMEN: Soft, nontender, nondistended abdomen. No guarding, no rebound. No masses appreciated. Patient has no pain upon palpation at all afterwards states it hurts Female : deferred Musculoskeletal: Normal range of motion, no pitting or edema. No cyanosis. NEUROLOGICAL: Cranial nerves grossly intact. Normal speech, normal gait. Normal sensory, motor exams PSYCH: Normal mood, normal affect. SKIN: There is thickness of the skin of bottom of her right foot at the base of the fifth carpal Dictation was performed using [employer] voice recognition software Physical Exam - Vital signs Vitals: Temp Pulse Resp BP Pulse Ox 99.1 F 79 16 119/71 100 01/22/18 14:28 01/22/18 14:28 01/22/18 14:28 01/22/18 14:28 01/22/18 14:28 Course - Re-evaluation Re-evalutation: 01/22/18 14:46 This is a 67-year-old female who has an extensive history of visits for GI issues, her symptoms are consistent with all her previous visits, she has no fever here her vital signs are completely normal, she overall looks well is in no distress, patient has been instructed to follow-up with GI specialist and her primary care physician for further evaluation and care, she overall looks well is in no distress has no signs or symptoms of perforation or infectious process. She does have what appears to be a corn under her foot has been instructed to use [id number] medication for this. I will treat her symptoms of nausea, the patient already has Bentyl at home which I instructed her to use After performing a Medical Screening Examination, I estimate there is LOW risk for ACUTE APPENDICITIS, BOWEL OBSTRUCTION, ACUTE CHOLECYSTITIS, PERFORATED DIVERTICULITIS, INCARCERATED HERNIA, PANCREATITIS, PELVIC INFLAMMATORY DISEASE, PERFORATED ULCER, ECTOPIC , or TUBO-OVARIAN ABSCESS, thus I consider the discharge disposition reasonable. Also, there is no evidence or peritonitis , sepsis, or toxicity. I have reevaluated this patient multiple times and no significant life threatening changes are noted. The patient and I have discussed the diagnosis and risks, and we agree with discharging home with close follow-up with the understanding that symptoms and presentations can change. We also discussed returning to the Emergency Department immediately if new or worsening symptoms occur. We have discussed the symptoms which are most concerning (e.g., bloody stool, fever, changing or worsening pain, vomiting) that necessitate immediate return. - Vital Signs Vital signs: Temp Pulse Resp BP Pulse Ox 99.1 F 79 16 119/71 100 01/22/18 14:28 01/22/18 14:28 01/22/18 14:28 01/22/18 14:28 01/22/18 14:28 Discharge - Discharge Clinical Impression: [place] of foot, Nausea, Vertigo Condition: Stable Disposition: HOME, SELF-CARE Instructions: Abdominal Pain ([facility]) Prescriptions: Ondansetron [Zofran Odt 4 mg Tablet] 1 - 2 tab PO Q4H PRN #15 tab.rapdis PRN Reason: For Nausea/Vomiting Referrals: ARACELI CORTEZ MD [Primary Care Provider] - Follow up tomorrow
== END 2018-01-22 14:46 | disposition home or self-care (01) ==
LOC: ER 14:09
DX: L84 Corns and callosities (principal); R42 Dizziness and giddiness; R11.0 Nausea; R10.9 Unspecified abdominal pain; Z88.6 Allergy status to analgesic agent; Z88.0 Allergy status to penicillin; Z88.2 Allergy status to sulfonamides; Z88.3 Allergy status to other anti-infective agents
CPT/HCPCS: 99283

== ENCOUNTER 2018-01-30 21:01 | Emergency (ER) | payer MEDICARE, MEDICAID ==
[2018-01-30 22:20] LABS: APPEARANCE,URINE CLEAR; BILIRUBIN,URINE NEGATIVE (NEGATIVE); COLOR,URINE STRAW; GLUCOSE, URINE NEGATIVE (NEGATIVE); KETONES,URINE NEGATIVE (NEGATIVE); LEUKOCYTE ESTERASE,URINE NEGATIVE (NEGATIVE); NITRITE,URINE NEGATIVE (NEGATIVE); PROTEIN,URINE NEGATIVE (NEGATIVE); URINE SPECIFIC GRAVITY 1.003; UROBILINOGEN,URINE NEGATIVE mg/dL (<2.0)
--- NOTE | 2018-01-30 23:04 | ER Document Report ---
ED General - General Chief Complaint: Abdominal Pain Stated Complaint: ABDOMINAL PAIN Time Seen by Provider: 01/30/18 22:42 Notes: Patient is a 67-year-old female presents to ER very frequently with many chronic recurrent complaints. Patient presents today with 2 months of burning whenever she has a bowel movement. She says that she also has now developed some burning when she urinates. She says that this happens whenever she is dehydrated. She said she saw her primary care doctor, Dr. Cortez, who told her to come to the ER to receive IV fluids. She has been drinking water. She denies any fevers. She does have history of irritable bowel syndrome. She does have a history of previous hysterectomy. She denies any vomiting. She denies any diarrhea. She says sometimes her stools are firm and sometimes her normal consistency. No blood in her stool. No other complaints at this time. She says this happened many times in the past. TRAVEL OUTSIDE OF THE [place] IN LAST 30 DAYS: No COUNTRY TRAVELED TO/FROM: [place] - Related Data Allergies/Adverse Reactions: aspirin Allergy (Severe, Verified 01/30/18 21:02) Anaphylaxis Penicillins Allergy (Severe, Verified 01/30/18 21:02) Anaphylaxis acetaminophen [From Vicodin] Allergy (Intermediate, Verified 01/30/18 21:02) Anaphylaxis hydrocodone [From Vicodin] Allergy (Intermediate, Verified 01/30/18 21:02) Anaphylaxis Sulfa (Sulfonamide Antibiotics) Allergy (Intermediate, Verified 01/30/18 21:02) iching, nausea ciprofloxacin [From Cipro] Allergy (Mild, Verified 01/30/18 21:02) itching, nausea codeine Allergy (Mild, Verified 01/30/18 21:02) Diarrhea meperidine HCl [From Demerol] Allergy (Mild, Verified 01/30/18 21:02) heart palpitations Past Medical History - Social History Smoking Status: Unknown if Ever Smoked Frequency of alcohol use: None Drug Abuse: None Family History: Arthritis, CAD, CVA, DM, Hyperlipidemia, Hypertension, Malignancy, Thyroid Disfunction Neurological Medical History: Denies: Hx Cerebrovascular Accident Renal/ Medical History: Denies: Hx Kidney Stones, Hx Peritoneal Dialysis GI Medical History: Reports: Hx Gastroesophageal Reflux Disease, Hx Irritable Bowel. Denies: Hx Ulcer Musculoskeltal Medical History: Reports Hx Arthritis, Denies Hx Multiple Sclerosis, Reports Hx Musculoskeletal Deformity, Reports Hx Musculoskeletal Trauma Psychiatric Medical History: Reports: Hx Anxiety, Hx Depression Denies: Hx Schizophrenia Past Surgical History: Reports: Hx Abdominal Surgery - small intestine removal, Hx Appendectomy, Hx Bowel Surgery - small intestine, Hx Breast Surgery - biopsy , Hx Hysterectomy, Hx Neurologic Surgery - brain tumor removed, Hx Tonsillectomy. Denies: Hx Open Heart Surgery - Immunizations Immunizations up to date: Yes Hx Diphtheria, Pertussis, Tetanus Vaccination: Yes - 09/2010 Hx Pneumococcal Vaccination: 08/24/10 Review of Systems - Review of Systems Notes: My Normal Review Basic REVIEW OF SYSTEMS: CONSTITUTIONAL : Denies fever, chills, or sweats. Denies recent illness. RESPIRATORY: Denies cough, cold, or chest congestion. Denies shortness of breath, difficulty breathing, or wheezing. GASTROINTESTINAL: "Burning in bowels when having a bowel movement". No nausea or vomiting. GENITOURINARY: Dysuria SKIN: Denies rash or skin lesions. NEUROLOGICAL: Denies altered mental status or loss of consciousness. Denies headache. Denies weakness or paralysis or loss of use of either side. Denies problems with gait or speech. Denies sensory or motor loss. PSYCHIATRIC: Recurrent anxiety ALL OTHER SYSTEMS REVIEWED AND NEGATIVE. Physical Exam - Vital signs Vitals: Temp Pulse Resp BP Pulse Ox 98.7 F 63 17 134/64 H 100 01/30/18 21:07 01/30/18 21:07 01/30/18 21:07 01/30/18 21:07 01/30/18 21:07 - Notes Notes: General Appearance: Well nourished, alert, cooperative, no acute distress, no obvious discomfort. Well appearing. Vitals: reviewed, See vital signs table. Head: no swelling or tenderness to the head Eyes: PERRL, EOMI, Conjuctiva clear Mouth: Moist mucous membranes Throat: No tonsillar inflammation, No airway obstruction, No lymphadenopathy Lungs: No wheezing, No rales, No rhonci, No accessory muscle use, good air exchange bilaterally. Heart: Normal rate, Regular rythm, No murmur, no rub Abdomen: Normal BS, soft, No rigidity, patient does not have any actual abdominal tenderness to palpation. Abdomen is very soft and I am able to push very deeply and firm on her abdomen without her complaining of pain. Her pain actually comes whenever she has a bowel movement and says she feels as if she is burning throughout her body whenever she has a bowel movement. Extremities: strength 5/5 in all extremities, good pulses in all extremities, no swelling or tenderness in the extremities, no edema. Skin: warm, dry, appropriate color, no rash Neuro: speech clear, oriented x 3, normal affect, responds appropriately to questions. Course - Re-evaluation Re-evalutation: 01/30/18 23:17 Patient is requesting IV fluids she says she feels dehydrated. Patient is able to fully orally hydrate with any difficulty she has not had any vomiting whatsoever. Patient comes to ER very frequently with multiple many vague complaints and has shown evidence of somatization and anxiety. Patient is adamant that she needs IV fluids because of the burning in her bowels whenever she has a bowel movement as she said she has had this many times in the past and only way gets better is for her to rehydrate through IV. I informed the patient that she can orally rehydrate and that there is no need case and IV. I informed her that she frequently gets IVs and blood draws that she is started becoming a hard stick for IVs and therefore would rather preserve her peripheral veins for a time when she is actually truly sick and emergently does need an IV or blood draw. Patient says that orally rehydrated will not work because "I drink water but it does not go through my body appropriately". I informed her that that is not true as her urine specific gravity is completely normal and she has no ketones in her urine and no signs of dehydration whatsoever on exam. I informed her that she needs to continue to orally rehydrate that she should return to ER immediately if she has recurrent abdominal pain, fevers, vomiting, or she feels unwell. I informed her she should follow-up with Dr. Last tomorrow for reevaluation. Dictation of this chart was performed using voice recognition software; therefore, there may be some unintended grammatical errors. - Vital Signs Vital signs: Temp Pulse Resp BP Pulse Ox 98.7 F 63 17 134/64 H 100 01/30/18 21:07 01/30/18 21:07 01/30/18 21:07 01/30/18 21:07 01/30/18 21:07 - Laboratory Laboratory results interpreted by me: 01/30/18 22:00 Urine Ascorbic Acid 20 H Discharge - Discharge Clinical Impression: Bunion Abdominal pain Qualifiers: Abdominal location: unspecified location Qualified Code(s): R10.9 - Unspecified abdominal pain Condition: Good Disposition: HOME, SELF-CARE Additional Instructions: Please drink about 5-7 glasses of water a day. Please follow up closely with Dr. Last tomorrow for reevaluation. please return to the ER immediately if you have fevers, vomiting, worsening abdominal pain, or feel unwell. Please follow up with Dr. Izaguirre, maintenance fitter, for evaluation of your feet. Referrals: ARACELI CORTEZ MD [Primary Care Provider] - Follow up tomorrow
[2018-01-30 23:48] VITALS: BP 124/71
== END 2018-01-30 23:53 | disposition home or self-care (01) ==
LOC: ER 21:01
DX: M21.619 Bunion of unspecified foot (principal); R10.9 Unspecified abdominal pain; R30.9 Painful micturition, unspecified
CPT/HCPCS: 81001; 99284

== ENCOUNTER 2018-02-01 14:17 | Observation (INO) | payer MEDICARE, MEDICAID ==
[2018-02-01 15:49] LABS: HEMATOCRIT 35.9 % (36.0-47.0); HEMOGLOBIN 12.1 g/dL (12.0-15.5); MEAN CORPUSCULAR HEMOGLOBIN 32.1 pg (27.0-33.4); MEAN CORPUSCULAR HGB CONC 33.6 g/dL (32.0-36.0); MEAN CORPUSCULAR VOLUME 95 fl (80-97); PLATELET COUNT 480 10^3/uL (150-450); RED BLOOD COUNT 3.77 10^6/uL (3.72-5.28); RED CELL DISTRIBUTION WIDTH 14.4 % (11.5-14.0); WHITE BLOOD COUNT 13.5 10^3/uL (4.0-10.5)
[2018-02-01 16:08] LABS: ALANINE AMINOTRANSFERASE 19 U/L (9-52); ALKALINE PHOSPHATASE 55 U/L (38-126); ANION GAP 12 (5-19); ASPARTATE AMINO TRANSFERASE 14 U/L (14-36); BILIRUBIN,DIRECT 0.1 mg/dL (0.0-0.4); BILIRUBIN,TOTAL 0.1 mg/dL (0.2-1.3); BLOOD UREA NITROGEN 10 mg/dL (7-20); CALCIUM 8.5 mg/dL (8.4-10.2); CARBON DIOXIDE 28 mmol/L (22-30); CHLORIDE 103 mmol/L (98-107); GLUCOSE 88 mg/dL (75-110); POTASSIUM 4.3 mmol/L (3.6-5.0); SODIUM 143.1 mmol/L (137-145); TOTAL PROTEIN 6.9 g/dL (6.3-8.2)
[2018-02-01 18:17] LABS: APPEARANCE,URINE CLEAR; BILIRUBIN,URINE NEGATIVE (NEGATIVE); COLOR,URINE YELLOW; GLUCOSE, URINE NEGATIVE (NEGATIVE); KETONES,URINE NEGATIVE (NEGATIVE); LEUKOCYTE ESTERASE,URINE NEGATIVE (NEGATIVE); NITRITE,URINE NEGATIVE (NEGATIVE); PROTEIN,URINE NEGATIVE (NEGATIVE); UROBILINOGEN,URINE NEGATIVE mg/dL (<2.0)
[2018-02-01] MEDS ORDERED: ALBUTEROL SULFATE 0.083% NEB 2.5 MG/3 ML AMPUL NEB PRN (21:57)
[2018-02-01] MEDS ORDERED: ACETAMINOPHEN WITH CODEINE #3 TABLET PO PRN (21:57)
[2018-02-01] MEDS ORDERED: ALBUTEROL SULFATE HFA (90 MCG/PUFF) 8 GM MDI (1 MDI/ER DISP) IH PRN (21:57)
[2018-02-01] MEDS ORDERED: DICYCLOMINE HCL 20 MG TABLET PO PRN (21:57)
[2018-02-01] MEDS ORDERED: MECLIZINE HCL 25 MG TABLET PO PRN (21:58)
[2018-02-01] MEDS ORDERED: ONDANSETRON 4 MG TAB.RAPDIS SL PRN (21:58)
[2018-02-01] MEDS ORDERED: IRON POLYSACCHARIDE COMPLEX PO SCH (22:00)
[2018-02-01] MEDS ORDERED: SUCRALFATE SUSP 1 GM/10 ML UDCUP PO ONE (22:30)
[2018-02-01] MEDS ORDERED: LANSOPRAZOLE 30 MG TAB.RAP.DR PO ONE ×2 (22:30→23:00)
[2018-02-01] MEDS: ALPRAZOLAM 0.5 MG TABLET PO SCH (22:52)
[2018-02-01] MEDS: CIPROFLOXACIN 400 MG/D5W RTU 400 MG/200 ML RTUPB IV SCH (22:52)
[2018-02-01] MEDS ORDERED: DILTIAZEM HCL 120 MG CAP.SR.24H PO ONE (23:00)
[2018-02-01] MEDS: NORMAL SALINE 1000 ML 1,000 ML IV PRN (23:34)
[2018-02-02] MEDS ORDERED: BUDESONIDE/FORMOTEROL 80-4.5 MCG 60 PUFF/6.9 GM MDI IH SCH (08:00)
[2018-02-02] MEDS: ACETAMINOPHEN WITH CODEINE #3 TABLET PO PRN ×2 (09:29→13:30)
[2018-02-02] MEDS: SUCRALFATE SUSP 1 GM/10 ML UDCUP PO SCH ×2 (09:31→17:16)
[2018-02-02] MEDS: CIPROFLOXACIN 400 MG/D5W RTU 400 MG/200 ML RTUPB IV SCH ×2 (09:32→23:01)
[2018-02-02] MEDS: DILTIAZEM HCL 120 MG CAP.SR.24H PO SCH (09:32)
[2018-02-02] MEDS ORDERED: LANSOPRAZOLE 30 MG TAB.RAP.DR PO SCH (10:00)
[2018-02-02] MEDS ORDERED: ALBUTEROL SULFATE HFA (90 MCG/PUFF) 200 PUFF/8.5 GM MDI IH PRN (10:00)
[2018-02-02] MEDS: NORMAL SALINE 1000 ML 1,000 ML IV PRN ×2 (10:16→16:04)
[2018-02-02] MEDS ORDERED: BUDESONIDE/FORMOTEROL 80-4.5 MCG 60 PUFF/6.9 GM MDI IH ONE (11:30)
[2018-02-02] MEDS: IRON POLYSACCHARIDES COMPLEX 150 MG CAPSULE PO SCH (13:30)
--- NOTE | 2018-02-02 18:54 | PDOC H&P ---
History of Present Illness Admission Date/PCP: 02/01/18 14:17 ARACELI CORTEZ MD History of Present Illness: MICHAEL CAMEJO is a 67 year old female,She came to the office with a complaint of profuse diarrhea, she stated that she was dehydrated and that she needed to be admitted to the hospital. This is second of his visit to the office complaining of dehydration, in the office she was evaluated on examination of the oral mucosa was dry, there was loss of skin turgor, she was given the benefit of the doubt, I do not trust this patient when it comes to symptomatology ,she is fond of exaggerating or embellishing symptoms she does not have,but because there was physical evidence of dehydration, she was admitted directly to the hospital for evaluation. She was brought in for observation, she was admitted yesterday, for the last 24 hours she has not had any diarrhea, nurses said she has not passed any stool that they could use for usual studies Past Medical History Cardiac Medical History: Reports: Hypertension Pulmonary Medical History: Reports: Asthma, Bronchitis, Pneumonia GI Medical History: Reports: Crohn's Disease, Diverticulitis, Gastroesophageal Reflux Disease, Hiatal Hernia Musculoskeltal Medical History: Reports: Arthritis Psychiatric Medical History: Reports: Depression Hematology: Reports: Anemia Past Surgical History Past Surgical History: Reports: Appendectomy, Hysterectomy, Tonsillectomy Social History Smoking Status: Never Smoker Frequency of Alcohol Use: None Hx Recreational Drug Use: No Drugs: None Hx Prescription Drug Abuse: No Family History Family History: Arthritis, CAD, CVA, DM, Hyperlipidemia, Hypertension, Malignancy, Thyroid Disfunction Parental Family History Reviewed: Yes Children Family History Reviewed: Yes Sibling(s) Family History Reviewed.: Yes Medication/Allergy Home Medications: Acetaminophen with Codeine [Acetaminophen-Cod #3 Tablet] 1 tab PO Q12HP PRN Albuterol Sulfate [Albuterol Sulfate 2.5mg/3 mL] 3 ml NEB Q12HP PRN 02/01/18 Albuterol Sulfate [Ventolin HFA MDI 18 GM] 2 puff IH Q4HP PRN 02/01/18 Alprazolam [Xanax 0.5 mg Tablet] 0.5 mg PO QHS 02/01/18 Budesonide/Formoterol Fumarate [Symbicort 80-4.5 Mcg Inhaler] 2 puff IH Q12 Cyanocobalamin (Vitamin B-12) [Vitamin B-12 Inj 1000 Mcg/1 ml Vial] 1,000 mcg SQ Q14D 02/01/18 Dexlansoprazole [Dexilant 60 mg Capsule] 60 mg PO DAILY 02/01/18 Dicyclomine HCl [Bentyl 20 mg Tablet] 20 mg PO BIDP PRN 02/01/18 Diltiazem HCl [Cardizem Cd 120 mg Capsule] 120 mg PO DAILY 02/01/18 Ibuprofen [Motrin 800 mg Tablet] 800 mg PO Q8HP PRN 02/01/18 Iron Polysaccharide Complex [Ezfe 200] 200 mg PO DAILY 02/01/18 Meclizine HCl [Antivert 25 mg Tablet] 25 mg PO Q8HP PRN 02/01/18 Ondansetron [Zofran Odt 4 mg Tablet] 4 mg SL Q8HP PRN 02/01/18 Prednisone [Deltasone 20 mg Tablet] 40 mg PO DAILY 02/01/18 Sucralfate [Carafate Susp 1 gm/10 ml Udcup] 1 gm PO BID 02/01/18 Allergies/Adverse Reactions: aspirin Allergy (Severe, Verified 01/30/18 21:02) Anaphylaxis Penicillins Allergy (Severe, Verified 01/30/18 21:02) Anaphylaxis acetaminophen [From Vicodin] Allergy (Intermediate, Verified 01/30/18 21:02) Anaphylaxis hydrocodone [From Vicodin] Allergy (Intermediate, Verified 01/30/18 21:02) Anaphylaxis Sulfa (Sulfonamide Antibiotics) Allergy (Intermediate, Verified 01/30/18 21:02) iching, nausea ciprofloxacin [From Cipro] Allergy (Mild, Verified 01/30/18 21:02) itching, nausea codeine Allergy (Mild, Verified 01/30/18 21:02) Diarrhea meperidine HCl [From Demerol] Allergy (Mild, Verified 01/30/18 21:02) heart palpitations Review of Systems Constitutional: ABSENT: chills, fever(s), headache(s), weight gain, weight loss Eyes: ABSENT: visual disturbances Ears: ABSENT: hearing changes Cardiovascular: ABSENT: chest pain, dyspnea on exertion, edema, orthropnea, palpitations Respiratory: ABSENT: cough, hemoptysis Gastrointestinal: PRESENT: diarrhea Genitourinary: ABSENT: dysuria, hematuria Musculoskeletal: ABSENT: joint swelling Integumentary: ABSENT: rash, wounds Neurological: ABSENT: abnormal gait, abnormal speech, confusion, dizziness, focal weakness, syncope Psychiatric: ABSENT: anxiety, depression, homidical ideation, suicidal ideation Endocrine: ABSENT: cold intolerance, heat intolerance, menstrual abnormalities, polydipsia, polyuria Hematologic/Lymphatic: ABSENT: easy bleeding, easy bruising, lymphadenopathy Physical Exam Vital Signs: Temp Pulse Resp BP Pulse Ox 98.2 F 84 16 111/65 100 02/02/18 11:30 02/02/18 14:18 02/02/18 14:18 02/02/18 11:30 02/02/18 14:18 Intake & Output 02/01/18 02/02/18 02/03/18 06:59 06:59 06:59 Intake Total 225 1600 Output Total 1150 2400 Balance -925 -800 Weight 57.15 kg General appearance: PRESENT: no acute distress, well-developed, well-nourished Head exam: PRESENT: atraumatic, normocephalic Eye exam: PRESENT: PERRLA Ear exam: PRESENT: normal external ear exam Mouth exam: PRESENT: dry mucosa Neck exam: PRESENT: full ROM. ABSENT: carotid bruit, JVD, lymphadenopathy, thyromegaly Respiratory exam: PRESENT: clear to auscultation franky Cardiovascular exam: PRESENT: RRR, +S1, +S2 Pulses: PRESENT: normal dorsalis pedis pul, +2 pedal pulses bilateral Vascular exam: PRESENT: normal capillary refill GI/Abdominal exam: PRESENT: normal bowel sounds, soft Rectal exam: PRESENT: deferred Neurological exam: PRESENT: alert, awake, oriented to person, oriented to place , oriented to time, oriented to situation, CN II-XII grossly intact Psychiatric exam: PRESENT: appropriate affect, normal mood Skin exam: PRESENT: dry, intact, warm Results Laboratory Results: 02/01/18 15:41 02/01/18 15:41 Assessment & Plan - Diagnosis (1) Diarrhea Qualifiers: Diarrhea type: unspecified type Qualified Code(s): R19.7 - Diarrhea, unspecified Is this a current diagnosis for this admission?: Yes Plan: She is admitted essentially for IV fluid therapy (2) Dehydration Is this a current diagnosis for this admission?: Yes
[2018-02-02] MEDS: ALPRAZOLAM 0.5 MG TABLET PO SCH (23:02)
[2018-02-02] MEDS: BUDESONIDE/FORMOTEROL 80-4.5 MCG 60 PUFF/6.9 GM MDI IH SCH (23:03)
[2018-02-03] MEDS ORDERED: LANSOPRAZOLE 30 MG TAB.RAP.DR PO SCH (06:00)
[2018-02-03] MEDS: BUDESONIDE/FORMOTEROL 80-4.5 MCG 60 PUFF/6.9 GM MDI IH SCH (09:20)
[2018-02-03] MEDS: SUCRALFATE SUSP 1 GM/10 ML UDCUP PO SCH ×2 (09:20→18:22)
[2018-02-03] MEDS: CIPROFLOXACIN 400 MG/D5W RTU 400 MG/200 ML RTUPB IV SCH (09:20)
[2018-02-03] MEDS: DILTIAZEM HCL 120 MG CAP.SR.24H PO SCH (09:21)
[2018-02-03] MEDS: ACETAMINOPHEN WITH CODEINE #3 TABLET PO PRN (12:22)
[2018-02-03] MEDS: IRON POLYSACCHARIDES COMPLEX 150 MG CAPSULE PO SCH (12:22)
[2018-02-03 18:28] LABS: ABSOLUTE BASOPHILS # (AUTO) 0.1 10^3/uL (0.0-0.2); ABSOLUTE EOSINOPHILS # (AUTO) 0.1 10^3/uL (0.0-0.6); ABSOLUTE LYMPHOCYTES (AUTO) 1.2 10^3/uL (0.5-4.7); ABSOLUTE MONOCYTES (AUTO) 0.9 10^3/uL (0.1-1.4); ABSOLUTE NEUT (AUTO) 10.2 10^3/uL (1.7-8.2); BASOPHILS % (AUTO) 0.6 % (0-2); EOSINOPHILS % (AUTO) 0.5 % (0-6); HEMATOCRIT 37.4 % (36.0-47.0); HEMOGLOBIN 12.5 g/dL (12.0-15.5); LYMPHOCYTES % (AUTO) 9.9 % (13-45); MEAN CORPUSCULAR HEMOGLOBIN 31.9 pg (27.0-33.4); MEAN CORPUSCULAR HGB CONC 33.4 g/dL (32.0-36.0); MEAN CORPUSCULAR VOLUME 95 fl (80-97); MONOCYTES % (AUTO) 7.2 % (3-13); PLATELET COUNT 506 10^3/uL (150-450); RED BLOOD COUNT 3.92 10^6/uL (3.72-5.28); RED CELL DISTRIBUTION WIDTH 14.8 % (11.5-14.0); SEGMENTED NEUTROPHILS % (AUTO) 81.8 % (42-78); TOTAL CELLS COUNTED % (AUTO) 100 %; WHITE BLOOD COUNT 12.4 10^3/uL (4.0-10.5)
--- NOTE | 2018-02-03 20:52 | PDOC DISCHARGE SUMMARY ---
General - Admit/Disc Date/PCP Admission Date/Primary Care Provider: 02/01/18 14:17 ARACELI CORTEZ MD Discharge Date: 02/03/18 - Discharge Diagnosis (1) Diarrhea Is this a current diagnosis for this admission?: Yes (2) Dehydration Is this a current diagnosis for this admission?: Yes - Additional Information Home Medications: Albuterol Sulfate [Albuterol Sulfate 2.5mg/3 mL] 3 ml NEB Q12HP PRN 02/01/18 Albuterol Sulfate [Ventolin HFA MDI 18 GM] 2 puff IH Q4HP PRN 02/01/18 Budesonide/Formoterol Fumarate [Symbicort 80-4.5 Mcg Inhaler] 2 puff IH Q12 Dexlansoprazole [Dexilant 60 mg Capsule] 60 mg PO DAILY 02/01/18 Diltiazem HCl [Cardizem Cd 120 mg Capsule] 120 mg PO DAILY 02/01/18 Iron Polysaccharide Complex [Ezfe 200] 200 mg PO DAILY 02/01/18 RX: Acetaminophen with Codeine [Acetaminophen-Cod #3 Tablet] 1 tab PO Q12HP PRN 02/01/18 RX: Alprazolam [Xanax 0.5 mg Tablet] 0.5 mg PO QHS 02/01/18 RX: Cyanocobalamin (Vitamin B-12) [Vitamin B-12 Inj 1000 Mcg/1 ml Vial] 1,000 mcg SQ Q14D 02/01/18 RX: Dicyclomine HCl [Bentyl 20 mg Tablet] 20 mg PO BIDP PRN 02/01/18 RX: Ibuprofen [Motrin 800 mg Tablet] 800 mg PO Q8HP PRN 02/01/18 RX: Meclizine HCl [Antivert 25 mg Tablet] 25 mg PO Q8HP PRN 02/01/18 RX: Ondansetron [Zofran Odt 4 mg Tablet] 4 mg SL Q8HP PRN 02/01/18 RX: Prednisone [Deltasone 20 mg Tablet] 40 mg PO DAILY 02/01/18 Sucralfate [Carafate Susp 1 gm/10 ml Udcup] 1 gm PO BID 02/01/18 History of Present Illness History of Present Illness: MICHAEL CAMEJO is a 67 year old female,She came to the office with a complaint of profuse diarrhea, she stated that she was dehydrated and that she needed to be admitted to the hospital. This is second of his visit to the office complaining of dehydration, in the office she was evaluated on examination of the oral mucosa was dry, there was loss of skin turgor, she was given the benefit of the doubt, I do not trust this patient when it comes to symptomatology ,she is fond of exaggerating or embellishing symptoms she does not have,but because there was physical evidence of dehydration, she was admitted directly to the hospital for evaluation. She was brought in for observation, she was admitted yesterday, for the last 24 hours she has not had any diarrhea, nurses said she has not passed any stool that they could use for usual studies Hospital Course Hospital Course: She was admitted for the management of diarrhea with dehydration, she was treated with IV fluid, normal saline, she had no episode of diarrhea in the hospital Physical Exam Vital Signs: Temp Pulse Resp BP Pulse Ox 98.0 F 81 17 136/58 H 100 02/03/18 16:47 02/03/18 16:47 02/03/18 16:47 02/03/18 16:47 02/03/18 16:47 Intake & Output 02/02/18 02/03/18 02/04/18 06:59 06:59 06:59 Intake Total 225 1600 Output Total 1150 2400 Balance -925 -800 Weight 57.15 kg General appearance: PRESENT: no acute distress, well-developed, well-nourished Head exam: PRESENT: atraumatic, normocephalic Eye exam: PRESENT: conjunctiva pink, EOMI, PERRLA Ear exam: PRESENT: normal external ear exam Mouth exam: PRESENT: moist, tongue midline Neck exam: PRESENT: full ROM Respiratory exam: PRESENT: clear to auscultation franky Cardiovascular exam: PRESENT: RRR, +S1, +S2 Pulses: PRESENT: normal dorsalis pedis pul, +2 pedal pulses bilateral Vascular exam: PRESENT: normal capillary refill GI/Abdominal exam: PRESENT: normal bowel sounds, soft Rectal exam: PRESENT: deferred Neurological exam: PRESENT: alert, awake, oriented to person, oriented to place , oriented to time, oriented to situation, CN II-XII grossly intact Psychiatric exam: PRESENT: appropriate affect, normal mood Skin exam: PRESENT: dry, intact, warm Results Laboratory Results: 02/03/18 18:22 02/01/18 15:41 02/03/18 18:22 WBC 12.4 H RBC 3.92 Hgb 12.5 Hct 37.4 MCV 95 MCH 31.9 MCHC 33.4 RDW 14.8 H Plt Count 506 H Seg Neutrophils % 81.8 H Lymphocytes % 9.9 L Monocytes % 7.2 Eosinophils % 0.5 Basophils % 0.6 Absolute Neutrophils 10.2 H Absolute Lymphocytes 1.2 Absolute Monocytes 0.9 Absolute Eosinophils 0.1 Absolute Basophils 0.1 Qualifiers - * PATIENT BEING DISCHARGED WITH ANY OF THE FOLLOWING DIAGNOSIS: No
[2018-02-03 21:10] VITALS: BP 133/64
[2018-02-19] MEDS ORDERED: CYANOCOBALAMIN (VITAMIN B-12) INJ 1000 MCG/1 ML VIAL SUBCUT SCH (10:00)
== END 2018-02-03 21:21 | disposition home or self-care (01) ==
LOC: 2S 14:17
PROVIDERS: ADMIT Internal Medicine; ATTEND Internal Medicine
DX: R19.7 Diarrhea, unspecified (principal); E86.0 Dehydration; K21.9 Gastro-esophageal reflux disease without esophagitis; J45.909 Unspecified asthma, uncomplicated; Z90.49 Acquired absence of other specified parts of digestive tract; Z90.710 Acquired absence of both cervix and uterus; Z87.19 Personal history of other diseases of the digestive system
CPT/HCPCS: 36415 ×2; 85025; 85027; 80076; 80048; 81001; G0378 ×3; G0379; A9270 ×12; J3490; J7030 ×2; J0744 ×3

== ENCOUNTER 2018-03-13 00:28 | Emergency (ER) | payer MEDICARE, MEDICAID ==
[2018-03-13 00:42] VITALS: BP 127/59
[2018-03-13 02:05] LABS: APPEARANCE,URINE CLEAR; BILIRUBIN,URINE NEGATIVE (NEGATIVE); COLOR,URINE STRAW; GLUCOSE, URINE NEGATIVE (NEGATIVE); KETONES,URINE NEGATIVE (NEGATIVE); LEUKOCYTE ESTERASE,URINE NEGATIVE (NEGATIVE); NITRITE,URINE NEGATIVE (NEGATIVE); PROTEIN,URINE NEGATIVE (NEGATIVE); URINE SPECIFIC GRAVITY 1.001; UROBILINOGEN,URINE NEGATIVE mg/dL (<2.0)
--- NOTE | 2018-03-13 02:10 | ER Document Report ---
ED General - General Chief Complaint: Nausea Stated Complaint: DIZZY Time Seen by Provider: 03/13/18 02:00 Notes: The patient is a 67-year-old female, well-known to the ER, presents with multiple complaints. She says that she feels like blood is draining from her eyeballs. She is also complaining of intermittent exacerbation of her vertigo that will resolve when she takes meclizine. Patient is requesting that her urine be checked for dehydration. She is also cold. TRAVEL OUTSIDE OF THE [place] IN LAST 30 DAYS: No - Related Data Allergies/Adverse Reactions: aspirin Allergy (Severe, Verified 01/30/18 21:02) Anaphylaxis Penicillins Allergy (Severe, Verified 01/30/18 21:02) Anaphylaxis acetaminophen [From Vicodin] Allergy (Intermediate, Verified 01/30/18 21:02) Anaphylaxis hydrocodone [From Vicodin] Allergy (Intermediate, Verified 01/30/18 21:02) Anaphylaxis Sulfa (Sulfonamide Antibiotics) Allergy (Intermediate, Verified 01/30/18 21:02) iching, nausea ciprofloxacin [From Cipro] Allergy (Mild, Verified 01/30/18 21:02) itching, nausea codeine Allergy (Mild, Verified 01/30/18 21:02) Diarrhea meperidine HCl [From Demerol] Allergy (Mild, Verified 01/30/18 21:02) heart palpitations Past Medical History - General Information source: Patient - Social History Smoking Status: Former Smoker Chew tobacco use (# tins/day): No Frequency of alcohol use: None Drug Abuse: None Family History: Arthritis, CAD, CVA, DM, Hyperlipidemia, Hypertension, Malignancy, Thyroid Disfunction Patient has suicidal ideation: No Patient has homicidal ideation: No - Past Medical History Cardiac Medical History: Reports: Hx Hypertension Denies: Hx Congestive Heart Failure, Hx Heart Attack Pulmonary Medical History: Reports: Hx Asthma, Hx Bronchitis, Hx Pneumonia Denies: Hx COPD, Hx Tuberculosis Neurological Medical History: Denies: Hx Cerebrovascular Accident, Hx Seizures Renal/ Medical History: Denies: Hx End Stage Renal Disease, Hx Kidney Stones, Hx Peritoneal Dialysis GI Medical History: Reports: Hx Crohn's Disease, Hx Diverticulitis, Hx Gastroesophageal Reflux Disease, Hx Hiatal Hernia, Hx Irritable Bowel. Denies: Hx Cirrhosis, Hx Hepatitis, Hx Ulcer Musculoskeletal Medical History: Reports Hx Arthritis, Denies Hx Multiple Sclerosis, Reports Hx Musculoskeletal Deformity, Reports Hx Musculoskeletal Trauma Psychiatric Medical History: Reports: Hx Anxiety, Hx Depression Denies: Hx Bipolar Disorder, Hx Schizophrenia Infectious Medical History: Denies: Hx Hepatitis Past Surgical History: Reports: Hx Abdominal Surgery - small intestine removal, Hx Appendectomy, Hx Bowel Surgery - small intestine, Hx Breast Surgery - biopsy , Hx Hysterectomy, Hx Neurologic Surgery - brain tumor removed, Hx Tonsillectomy. Denies: Hx Mastectomy, Hx Open Heart Surgery, Hx Pacemaker - Immunizations Immunizations up to date: Yes Hx Diphtheria, Pertussis, Tetanus Vaccination: Yes - 09/2010 Hx Pneumococcal Vaccination: 08/24/10 Review of Systems - Review of Systems Notes: REVIEW OF SYSTEMS: CONSTITUTIONAL: -fevers, +chills EENT: -eye pain, -difficulty swallowing, -nasal congestion CARDIOVASCULAR: -chest pain, -syncope. RESPIRATORY: -cough, -SOB GASTROINTESTINAL: -abdominal pain, -nausea, -vomiting, -diarrhea GENITOURINARY: -dysuria, -hematuria MUSCULOSKELETAL: -back pain, -neck pain SKIN: -rash or skin lesions. HEMATOLOGIC: -easy bruising or bleeding. LYMPHATIC: -swollen, enlarged glands. NEUROLOGICAL: -altered mental status or loss of consciousness, -headache, - neurologic symptoms PSYCHIATRIC: -anxiety, -depression. ALL OTHER SYSTEMS REVIEWED AND NEGATIVE. Physical Exam - Vital signs Vitals: Temp Pulse Resp BP Pulse Ox 97.8 F 63 16 127/59 H 100 03/13/18 00:38 03/13/18 00:38 03/13/18 00:38 03/13/18 00:38 03/13/18 00:38 - Notes Notes: PHYSICAL EXAMINATION: GENERAL: Well-appearing, well-nourished and in no acute distress. HEAD: Atraumatic, normocephalic. EYES: Pupils equal round and reactive to light, extraocular movements intact, sclera anicteric, conjunctiva are normal. ENT: nares patent, oropharynx clear without exudates. Moist mucous membranes. NECK: Normal range of motion, supple without lymphadenopathy LUNGS: Breath sounds clear to auscultation bilaterally and equal. No wheezes rales or rhonchi. HEART: Regular rate and rhythm without murmurs ABDOMEN: Soft, nontender, normoactive bowel sounds. No guarding, no rebound. No masses appreciated. EXTREMITIES: Normal range of motion, no pitting or edema. No cyanosis. NEUROLOGICAL: Cranial nerves grossly intact. Normal speech, normal gait. Normal sensory and motor exams. PSYCH: Normal mood, normal affect. SKIN: Warm, Dry, normal turgor, no rashes or lesions noted. Course - Re-evaluation Re-evalutation: Patient presents with multiple vague complaints that did not appear to be concerning for any acute life-threatening pathology. Vitals are within normal limits at triage and at time of discharge. Physical examination is unremarkable. Patient has tolerated oral intake without difficulty. Patient was not noted to be in distress at any point during their ER visit. At this time, based on the reassuring evaluation, I do not suspect an acute UT, pulmonary embolus, aortic dissection, acute intra-abdominal pathology, stroke, or sepsis.Will discharge with return precautions and follow-up recommendations. Verbal discharge instructions given a the bedside and opportunity for questions given. Medication warnings reviewed. Patient is in agreement with this plan and has verbalized understanding of return precautions and the need for primary care follow-up in the next 24-72 hours. - Vital Signs Vital signs: Temp Pulse Resp BP Pulse Ox 97.8 F 63 16 127/59 H 100 03/13/18 00:38 03/13/18 00:38 03/13/18 00:38 03/13/18 00:38 03/13/18 00:38 Discharge - Discharge Clinical Impression: Worried well Condition: Stable Disposition: HOME, SELF-CARE Additional Instructions: You appear well-hydrated. Follow-up with your primary care physician for further evaluation and treatment. Forms: Elevated Blood Pressure Referrals: NAHOMI ALLEN PA-C [Primary Care Provider] - Follow up as needed
== END 2018-03-13 03:15 | disposition home or self-care (01) ==
LOC: ER 00:28
DX: R42 Dizziness and giddiness (principal); R68.83 Chills (without fever); I10 Essential (primary) hypertension; J45.909 Unspecified asthma, uncomplicated; Z88.2 Allergy status to sulfonamides; Z88.1 Allergy status to other antibiotic agents; Z87.892 Personal history of anaphylaxis; Z88.5 Allergy status to narcotic agent; Z88.6 Allergy status to analgesic agent; Z88.0 Allergy status to penicillin
CPT/HCPCS: 81001; 99284

== ENCOUNTER 2018-04-03 12:28 | Observation (INO) | payer MEDICARE, MEDICAID ==
[2018-04-03] MEDS ORDERED: NORMAL SALINE 1000 ML 1,000 ML IV PRN (13:01)
--- NOTE | 2018-04-03 13:09 | ER Document Report ---
ED General - General Chief Complaint: General Weakness Stated Complaint: POSSIBLE DEHYDRATION Time Seen by Provider: 04/03/18 12:58 Notes: 67-year-old female presented to the ER for direct admit. Unfortunately there are no beds to be directly admitted to. Patient just came from her primary care doctor's office Dr. Batres. He has written orders for direct admission. Patient has been having diarrhea. He would like her to have IV fluids and lab work drawn. He would also like a psychiatric consultation. The patient denies any abdominal pain no chest pain or shortness of breath. States she has been having a lot of diarrhea and feels very weak. TRAVEL OUTSIDE OF THE [place] IN LAST 30 DAYS: No COUNTRY TRAVELED TO/FROM: [place] - Related Data Allergies/Adverse Reactions: aspirin Allergy (Severe, Verified 01/30/18 21:02) Anaphylaxis Penicillins Allergy (Severe, Verified 01/30/18 21:02) Anaphylaxis acetaminophen [From Vicodin] Allergy (Intermediate, Verified 01/30/18 21:02) Anaphylaxis hydrocodone [From Vicodin] Allergy (Intermediate, Verified 01/30/18 21:02) Anaphylaxis Sulfa (Sulfonamide Antibiotics) Allergy (Intermediate, Verified 01/30/18 21:02) iching, nausea ciprofloxacin [From Cipro] Allergy (Mild, Verified 01/30/18 21:02) itching, nausea codeine Allergy (Mild, Verified 01/30/18 21:02) Diarrhea meperidine HCl [From Demerol] Allergy (Mild, Verified 01/30/18 21:02) heart palpitations Past Medical History - Social History Smoking Status: Unknown if Ever Smoked Family History: Arthritis, CAD, CVA, DM, Hyperlipidemia, Hypertension, Malignancy, Thyroid Disfunction Patient has suicidal ideation: No Patient has homicidal ideation: No - Past Medical History Cardiac Medical History: Reports: Hx Hypertension Denies: Hx Congestive Heart Failure, Hx Heart Attack Pulmonary Medical History: Reports: Hx Asthma, Hx Bronchitis, Hx Pneumonia Denies: Hx COPD, Hx Tuberculosis Neurological Medical History: Denies: Hx Cerebrovascular Accident, Hx Seizures Renal/ Medical History: Denies: Hx End Stage Renal Disease, Hx Kidney Stones, Hx Peritoneal Dialysis GI Medical History: Reports: Hx Crohn's Disease, Hx Diverticulitis, Hx Gastroesophageal Reflux Disease, Hx Hiatal Hernia, Hx Irritable Bowel. Denies: Hx Cirrhosis, Hx Hepatitis, Hx Ulcer Musculoskeletal Medical History: Reports Hx Arthritis, Denies Hx Multiple Sclerosis, Reports Hx Musculoskeletal Deformity, Reports Hx Musculoskeletal Trauma Psychiatric Medical History: Reports: Hx Anxiety, Hx Depression Denies: Hx Bipolar Disorder, Hx Schizophrenia Infectious Medical History: Denies: Hx Hepatitis Past Surgical History: Reports: Hx Abdominal Surgery - small intestine removal, Hx Appendectomy, Hx Bowel Surgery - small intestine, Hx Breast Surgery - biopsy , Hx Hysterectomy, Hx Neurologic Surgery - brain tumor removed, Hx Tonsillectomy. Denies: Hx Mastectomy, Hx Open Heart Surgery, Hx Pacemaker - Immunizations Immunizations up to date: Yes Hx Diphtheria, Pertussis, Tetanus Vaccination: Yes - 09/2010 Hx Pneumococcal Vaccination: 08/24/10 Review of Systems - Review of Systems Constitutional: Malaise, Weakness. denies: Chills, Fever Cardiovascular: denies: Chest pain, Heart racing, Dyspnea Gastrointestinal: Diarrhea, Nausea, Poor appetite. denies: Vomiting, Constipation, Blood streaked bowels Genitourinary: denies: Burning, Dysuria -: Yes All other systems reviewed and negative Physical Exam - Vital signs Vitals: Temp Pulse Resp BP Pulse Ox 98.2 F 72 16 123/70 100 04/03/18 12:33 04/03/18 12:33 04/03/18 12:33 04/03/18 12:33 04/03/18 12:33 - Notes Notes: GENERAL_APPEARANCE: well_nourished, alert, cooperative, no_acute_distress, no_ obvious_discomfort. VITALS: reviewed, see vital signs table. HEAD: no_swelling\tenderness on the head. EYES: PERRL, EOMI, conjunctiva_clear. NOSE: no_nasal_discharge. MOUTH: His membranes THROAT: no_throat_inflammation, no_airway_obstruction. no_lymphadenopathy NECK: supple, no_neck_tenderness, (-)thyromegaly. BACK: no_back_tenderness. CHEST_WALL: no_chest_tenderness. LUNGS: no_wheezing, no_rales, no_rhonchi, (-)accessory muscle use, good air exchange bilateral. HEART: normal_rate, normal_rhythm, normal_S1, normal_S2, (-)S3, (-)S4, no_ murmur, no_rub. ABDOMEN: normal_BS, soft, no_abd_tenderness, (-)guarding, (-)rebound, no_ organomegaly, no_abd_masses. EXTREMITIES: strength 5/5 in all_extremities, good pulses in all_extremities, no_swelling\tenderness in the extremities, no_edema. SKIN: warm, dry, good_color, no_rash. MENTAL_STATUS: speech_clear, oriented_X_3, anxious_affect, responds_ appropriately to questions. NEURO: Neg Motor or Sensory Deficits on exam, CN 2-12 intact, DTR 2+ symmetric x 4, No cerbellar signs Psych: Patient is very tangential. She is obsessed with her health and body. She denies any suicidal or homicidal denies visual auditory hallucinations. Course - Re-evaluation Re-evalutation: 04/03/18 13:08 The patient was here for direct admit I did a quick medical screening exam triage notes put the orders in the doctor [facility] had requested. Including psychiatric consultation. Will order some IV fluids. Remainder of the orders per the admitting provider. I see no acute emergency medical condition other than some mild dehydration and diarrhea. - Vital Signs Vital signs: Temp Pulse Resp BP Pulse Ox 98.2 F 72 16 123/70 100 04/03/18 12:33 04/03/18 12:33 04/03/18 12:33 04/03/18 12:33 04/03/18 12:33 Discharge - Discharge Clinical Impression: Dehydration, Diarrhea Condition: Good Disposition: ADMITTED OBSERVATION Admitting Provider: [facility] Unit Admitted: Medical Floor Referrals: NAHOMI ALLEN PA-C [Primary Care Provider] - Follow up as needed
[2018-04-03 14:30] LABS: ALANINE AMINOTRANSFERASE 23 U/L (9-52); ALBUMIN 4.8 g/dL (3.5-5.0); ALKALINE PHOSPHATASE 63 U/L (38-126); ANION GAP 15 (5-19); ASPARTATE AMINO TRANSFERASE 23 U/L (14-36); BILIRUBIN,DIRECT 0.3 mg/dL (0.0-0.4); BILIRUBIN,TOTAL 0.5 mg/dL (0.2-1.3); BLOOD UREA NITROGEN 7 mg/dL (7-20); CALCIUM 9.7 mg/dL (8.4-10.2); CARBON DIOXIDE 27 mmol/L (22-30); CHLORIDE 98 mmol/L (98-107); GLUCOSE 86 mg/dL (75-110); LIPASE 50.4 U/L (23-300); POTASSIUM 4.4 mmol/L (3.6-5.0); TOTAL PROTEIN 8.5 g/dL (6.3-8.2)
[2018-04-03 14:34] LABS: APPEARANCE,URINE CLEAR; BILIRUBIN,URINE NEGATIVE (NEGATIVE); COLOR,URINE STRAW; GLUCOSE, URINE NEGATIVE (NEGATIVE); KETONES,URINE NEGATIVE (NEGATIVE); LEUKOCYTE ESTERASE,URINE NEGATIVE (NEGATIVE); NITRITE,URINE NEGATIVE (NEGATIVE); PROTEIN,URINE NEGATIVE (NEGATIVE); URINE SPECIFIC GRAVITY 1.002; UROBILINOGEN,URINE NEGATIVE mg/dL (<2.0)
[2018-04-03 14:35] LABS: ABSOLUTE EOSINOPHILS # (AUTO) 0.3 10^3/uL (0.0-0.6); ABSOLUTE LYMPHOCYTES (AUTO) 1.4 10^3/uL (0.5-4.7); ABSOLUTE MONOCYTES (AUTO) 0.4 10^3/uL (0.1-1.4); ABSOLUTE NEUT (AUTO) 4.1 10^3/uL (1.7-8.2); BASOPHILS % (AUTO) 0.7 % (0-2); EOSINOPHILS % (AUTO) 5.4 % (0-6); HEMATOCRIT 40.8 % (36.0-47.0); HEMOGLOBIN 14.1 g/dL (12.0-15.5); LYMPHOCYTES % (AUTO) 22.3 % (13-45); MEAN CORPUSCULAR HEMOGLOBIN 33.7 pg (27.0-33.4); MEAN CORPUSCULAR HGB CONC 34.6 g/dL (32.0-36.0); MEAN CORPUSCULAR VOLUME 97 fl (80-97); PLATELET COUNT 415 10^3/uL (150-450); RED CELL DISTRIBUTION WIDTH 14.8 % (11.5-14.0); SEGMENTED NEUTROPHILS % (AUTO) 64.6 % (42-78); TOTAL CELLS COUNTED % (AUTO) 100 %; WHITE BLOOD COUNT 6.3 10^3/uL (4.0-10.5)
--- NOTE | 2018-04-03 16:41 | ER Document Report ---
Doctor's Note Notes: 04/03/18 16:40 The patient was admitted to observation and labs were ordered by myself. The lab results were called to the admitting doctor Dr. Sykes wanted the patient. Discharge. Patient will be discharged follow-up with him in the office tomorrow Patient will be discharged
[2018-04-03 17:02] VITALS: BP 131/69
== END 2018-04-03 19:00 | disposition home or self-care (01) ==
LOC: ER 12:28 → EH 14:09
PROVIDERS: ADMIT Internal Medicine; ATTEND Internal Medicine
DX: E86.0 Dehydration (principal); R19.7 Diarrhea, unspecified; Z87.19 Personal history of other diseases of the digestive system; Z90.49 Acquired absence of other specified parts of digestive tract; Z90.710 Acquired absence of both cervix and uterus
CPT/HCPCS: 99285; 36415; 83690; 85025; 80053; 81001; G0378

== ENCOUNTER 2018-04-06 19:17 | Emergency (ER) | payer MEDICARE, MEDICAID ==
[2018-04-06 19:28] VITALS: BP 154/64
[2018-04-06] MEDS ORDERED: DIPH/PERTUSS(ACELL)/TETANUS VAC/PF 0.5 ML SYR (>=10YO) IM ONE (20:04)
--- NOTE | 2018-04-06 20:09 | ER Document Report ---
HPI - HPI Patient complains to provider of: Right arm injury Pain Level: 3 Context: Patient is a 67-year-old female complaining of pain to her right forearm. Patient hit her arm on the door frame at the doctor's office yesterday and has a skin avulsion. Patient called her primary care doctor today and was prescribed an antibiotic ointment but she is in the emergency room tonight concerned about infection. Patient is afebrile. Patient is on sure about her tetanus status. Patient claims that her last tetanus shot was more than 20 years ago Associated Symptoms: None Exacerbated by: Movement Relieved by: Denies - Weight is 1 Similar symptoms previously: Yes Recently seen / treated by doctor: Yes - ROS Systems Reviewed and Negative: Yes All other systems reviewed and negative - REPRODUCTIVE Reproductive: DENIES: : Past Medical History - General Information source: Patient - Social History Smoking Status: Never Smoker Frequency of alcohol use: None Drug Abuse: None Lives with: Alone Family History: Arthritis, CAD, CVA, DM, Hyperlipidemia, Hypertension, Malignancy, Thyroid Disfunction - Past Medical History Cardiac Medical History: Reports: Hx Hypertension Denies: Hx Congestive Heart Failure, Hx Heart Attack Pulmonary Medical History: Reports: Hx Asthma, Hx Bronchitis, Hx Pneumonia Denies: Hx COPD, Hx Tuberculosis Neurological Medical History: Denies: Hx Cerebrovascular Accident, Hx Seizures Renal/ Medical History: Denies: Hx End Stage Renal Disease, Hx Kidney Stones, Hx Peritoneal Dialysis GI Medical History: Reports: Hx Crohn's Disease, Hx Diverticulitis, Hx Gastroesophageal Reflux Disease, Hx Hiatal Hernia, Hx Irritable Bowel. Denies: Hx Cirrhosis, Hx Hepatitis, Hx Ulcer Musculoskeletal Medical History: Reports Hx Arthritis, Denies Hx Multiple Sclerosis, Reports Hx Musculoskeletal Deformity, Reports Hx Musculoskeletal Trauma Psychiatric Medical History: Reports: Hx Anxiety, Hx Depression Denies: Hx Bipolar Disorder, Hx Schizophrenia Infectious Medical History: Denies: Hx Hepatitis Past Surgical History: Reports: Hx Abdominal Surgery - small intestine removal, Hx Appendectomy, Hx Bowel Surgery - small intestine, Hx Breast Surgery - biopsy , Hx Hysterectomy, Hx Neurologic Surgery - brain tumor removed, Hx Tonsillectomy. Denies: Hx Mastectomy, Hx Open Heart Surgery, Hx Pacemaker - Immunizations Immunizations up to date: Yes Hx Diphtheria, Pertussis, Tetanus Vaccination: Yes - 09/2010 Hx Pneumococcal Vaccination: 08/24/10 Vertical Provider Document - CONSTITUTIONAL Agree With Documented VS: Yes Exam Limitations: No Limitations - INFECTION CONTROL TRAVEL OUTSIDE OF THE [place] IN LAST 30 DAYS: No COUNTRY TRAVELED TO/FROM: [place] - HEENT HEENT: Atraumatic, PERRLA - NECK Neck: Normal Inspection, Supple - RESPIRATORY Respiratory: Breath Sounds Normal, No Respiratory Distress - MUSCULOSKELETAL/EXTREMETIES Musculoskeletal/Extremeties: MAEW, Tender - Right forearm - NEURO Level of Consciousness: Awake, Alert, Appropriate - DERM Integumentary: Laceration - 2 cm skin avulsion dorsal proximal right forearm. No active bleeding. No surrounding erythema or signs of infection. Distal sensory motor circulation intact. Patient has full range of motion with affected arm from the shoulder to the fingers Course - Re-evaluation Re-evalutation: 04/06/18 20:08 After performing a Medical Screening Examination, I estimate there is LOW risk for OPEN FRACTURE, COMPARTMENT SYNDROME, DEEP VENOUS THROMBOSIS, ACUTE TENDON RUPTURE, or NEUROVASCULAR INJURY thus I consider the discharge disposition reasonable. I have reevaluated this patient multiple times and no significant life threatening changes are noted. The patient and I have discussed the diagnosis and risks, and we agree with discharging home to closely follow-up with their primary doctor or the referral orthopedist with the understanding that symptoms and presentations can change. We also discussed returning to the Emergency Department immediately if new or worsening symptoms occur. We have discussed the symptoms which are most concerning (e.g., changing or worsening pain, numbness, weakness) that necessitate immediate return - Vital Signs Vital signs: Temp Pulse Resp BP Pulse Ox 99.5 F 78 18 154/64 H 99 04/06/18 19:27 04/06/18 19:27 04/06/18 19:27 04/06/18 19:27 04/06/18 19:27 Discharge - Discharge Clinical Impression: Skin avulsion Condition: Stable Disposition: HOME, SELF-CARE Instructions: Avulsion Injury ([facility]), Soap Cleansing ([facility]), Antibiotic Ointment Protection ([facility]), Tetanus Immunization Given ([facility]) Additional Instructions: Wash wound gently with antibacterial soap and water Apply antibiotic ointment and bandage after cleaning Ice and elevate injured arm as much as possible Follow-up with your primary care for any concerns Prescriptions: Mupirocin [Bactroban 2% Ointment 22 gm] 1 applic TP TID #1 tube Referrals: OARACELI CHAVEZ MD [Primary Care Provider] - Follow up as needed
== END 2018-04-06 20:28 | disposition home or self-care (01) ==
LOC: ER 19:17
DX: S49.91XA Unspecified injury of right shoulder and upper arm, initial encounter (principal); S51.801A Unspecified open wound of right forearm, initial encounter; W22.01XA Walked into wall, initial encounter; Y92.531 Health care provider office as the place of occurrence of the external cause; I10 Essential (primary) hypertension; Z90.710 Acquired absence of both cervix and uterus; Z23 Encounter for immunization
CPT/HCPCS: 90471; 90715; 99283

== ENCOUNTER 2018-04-17 14:49 | Observation (INO) | payer MEDICARE, MEDICAID ==
--- NOTE | 2018-04-17 16:53 | ER Document Report ---
ED Medical Screen (RME) - General Chief Complaint: Vomiting Stated Complaint: VOMITING Time Seen by Provider: 04/17/18 16:49 Mode of Arrival: Ambulatory Information source: Patient Notes: Patient presents with observation admission orders per Dr. Cortez. Patient states she has had a UTI for several days fever 2 days ago. Patient nontoxic in appearance. I have greeted and performed a rapid initial assessment of this patient. A comprehensive ED assessment and evaluation of the patient, analysis of test results and completion of the medical decision making process will be conducted by additional ED providers. TRAVEL OUTSIDE OF THE [place] IN LAST 30 DAYS: No COUNTRY TRAVELED TO/FROM: [place] - Related Data Allergies/Adverse Reactions: aspirin Allergy (Severe, Verified 04/17/18 14:50) Anaphylaxis Penicillins Allergy (Severe, Verified 04/17/18 14:50) Anaphylaxis acetaminophen [From Vicodin] Allergy (Intermediate, Verified 04/17/18 14:50) Anaphylaxis hydrocodone [From Vicodin] Allergy (Intermediate, Verified 04/17/18 14:50) Anaphylaxis Sulfa (Sulfonamide Antibiotics) Allergy (Intermediate, Verified 04/17/18 14:50) iching, nausea ciprofloxacin [From Cipro] Allergy (Mild, Verified 04/17/18 14:50) itching, nausea codeine Allergy (Mild, Verified 04/17/18 14:50) Diarrhea meperidine HCl [From Demerol] Allergy (Mild, Verified 04/17/18 14:50) heart palpitations Past Medical History - Social History Chew tobacco use (# tins/day): No Frequency of alcohol use: None Drug Abuse: None Family history: Reviewed & Not Pertinent - Past Medical History Cardiac Medical History: Reports: Hx Hypertension Denies: Hx Congestive Heart Failure, Hx Heart Attack Pulmonary Medical History: Reports: Hx Asthma, Hx Bronchitis, Hx Pneumonia Denies: Hx COPD, Hx Tuberculosis Neurological Medical History: Denies: Hx Cerebrovascular Accident, Hx Seizures Renal/ Medical History: Denies: Hx End Stage Renal Disease, Hx Kidney Stones, Hx Peritoneal Dialysis GI Medical History: Reports: Hx Crohn's Disease, Hx Diverticulitis, Hx Gastroesophageal Reflux Disease, Hx Hiatal Hernia, Hx Irritable Bowel. Denies: Hx Cirrhosis, Hx Hepatitis, Hx Ulcer Musculoskeltal Medical History: Reports Hx Arthritis, Denies Hx Multiple Sclerosis, Reports Hx Musculoskeletal Deformity, Reports Hx Musculoskeletal Trauma Psychiatric Medical History: Reports: Hx Anxiety, Hx Depression Denies: Hx Bipolar Disorder, Hx Schizophrenia Infectious Medical History: Denies: Hx Hepatitis Past Surgical History: Reports: Hx Abdominal Surgery - small intestine removal, Hx Appendectomy, Hx Bowel Surgery - small intestine, Hx Breast Surgery - biopsy , Hx Hysterectomy, Hx Neurologic Surgery - brain tumor removed, Hx Tonsillectomy. Denies: Hx Mastectomy, Hx Open Heart Surgery, Hx Pacemaker - Immunizations Immunizations up to date: Yes Hx Diphtheria, Pertussis, Tetanus Vaccination: Yes - 09/2010 History of Influenza Vaccine for 05/2017 - 10/2017 Season: Yes Physical Exam - General General appearance: Appears well, Alert In distress: None Doctor's Discharge - Discharge Referrals: ARACELI CORTEZ MD [Primary Care Provider] - Follow up as needed
[2018-04-17 17:53] LABS: ABSOLUTE BASOPHILS # (AUTO) 0.1 10^3/uL (0.0-0.2); ABSOLUTE EOSINOPHILS # (AUTO) 0.5 10^3/uL (0.0-0.6); ABSOLUTE LYMPHOCYTES (AUTO) 1.7 10^3/uL (0.5-4.7); ABSOLUTE MONOCYTES (AUTO) 0.4 10^3/uL (0.1-1.4); ABSOLUTE NEUT (AUTO) 4.5 10^3/uL (1.7-8.2); EOSINOPHILS % (AUTO) 6.9 % (0-6); HEMATOCRIT 40.9 % (36.0-47.0); HEMOGLOBIN 14.2 g/dL (12.0-15.5); LYMPHOCYTES % (AUTO) 23.2 % (13-45); MEAN CORPUSCULAR HEMOGLOBIN 33.7 pg (27.0-33.4); MEAN CORPUSCULAR HGB CONC 34.6 g/dL (32.0-36.0); MEAN CORPUSCULAR VOLUME 97 fl (80-97); MONOCYTES % (AUTO) 5.8 % (3-13); PLATELET COUNT 458 10^3/uL (150-450); SEGMENTED NEUTROPHILS % (AUTO) 63.1 % (42-78); TOTAL CELLS COUNTED % (AUTO) 100 %; WHITE BLOOD COUNT 7.2 10^3/uL (4.0-10.5)
[2018-04-17 17:55] LABS: APPEARANCE,URINE CLEAR; BILIRUBIN,URINE NEGATIVE (NEGATIVE); COLOR,URINE YELLOW; GLUCOSE, URINE NEGATIVE (NEGATIVE); KETONES,URINE NEGATIVE (NEGATIVE); LEUKOCYTE ESTERASE,URINE NEGATIVE (NEGATIVE); NITRITE,URINE NEGATIVE (NEGATIVE); PROTEIN,URINE NEGATIVE (NEGATIVE); URINE SPECIFIC GRAVITY 1.006; UROBILINOGEN,URINE NEGATIVE mg/dL (<2.0)
--- NOTE | 2018-04-17 18:05 | RADIOLOGY REPORT (SQ) ---
EXAM DESCRIPTION: CHEST 2 VIEWS COMPLETED DATE/TIME: 04/17/2018 5:53 pm REASON FOR STUDY: uti, dizzy, per adm orders COMPARISON: 09/20/2017 TECHNIQUE: Frontal and lateral radiographic views of the chest acquired. NUMBER OF VIEWS: Two view. LIMITATIONS: None. FINDINGS: LUNGS AND PLEURA: No pneumothorax. No consolidation or pleural effusion. Similar chronic interstitial changes. MEDIASTINUM AND HILAR STRUCTURES: Stable. HEART AND VASCULAR STRUCTURES: Stable. BONES: No acute findings. HARDWARE: None in the chest. OTHER: No other significant finding. IMPRESSION: NO ACUTE FINDINGS. TECHNICAL DOCUMENTATION: JOB ID: [id number] [id number] 2010 [employer]- All Rights Reserved Reading location - IP/workstation name: [email or web address]
[2018-04-17] MEDS: NORMAL SALINE 1000 ML 1,000 ML IV PRN ×2 (18:45→23:50)
[2018-04-17 22:29] LABS: ALANINE AMINOTRANSFERASE 17 U/L (9-52); ALKALINE PHOSPHATASE 58 U/L (38-126); ANION GAP 13 (5-19); ASPARTATE AMINO TRANSFERASE 25 U/L (14-36); BILIRUBIN,DIRECT 0.1 mg/dL (0.0-0.4); BILIRUBIN,TOTAL 0.4 mg/dL (0.2-1.3); BLOOD UREA NITROGEN 5 mg/dL (7-20); CALCIUM 9.1 mg/dL (8.4-10.2); CARBON DIOXIDE 25 mmol/L (22-30); CHLORIDE 107 mmol/L (98-107); GLUCOSE 80 mg/dL (75-110); POTASSIUM 3.8 mmol/L (3.6-5.0); SODIUM 144.7 mmol/L (137-145); TOTAL PROTEIN 7.3 g/dL (6.3-8.2)
[2018-04-18] MEDS ORDERED: ALBUTEROL SULFATE HFA (90 MCG/PUFF) 8 GM MDI (1 MDI/ER DISP) IH PRN (02:00)
[2018-04-18] MEDS ORDERED: MECLIZINE HCL 25 MG TABLET PO PRN (02:01)
[2018-04-18] MEDS: CIPROFLOXACIN 400 MG/D5W RTU 400 MG/200 ML RTUPB IV SCH ×2 (02:26→16:15)
[2018-04-18] MEDS: LANSOPRAZOLE 30 MG TAB.RAP.DR PO SCH (05:51)
[2018-04-18 06:25] LABS: ABSOLUTE BASOPHILS # (AUTO) 0.1 10^3/uL (0.0-0.2); ABSOLUTE EOSINOPHILS # (AUTO) 0.5 10^3/uL (0.0-0.6); ABSOLUTE LYMPHOCYTES (AUTO) 1.6 10^3/uL (0.5-4.7); ABSOLUTE MONOCYTES (AUTO) 0.6 10^3/uL (0.1-1.4); ABSOLUTE NEUT (AUTO) 3.5 10^3/uL (1.7-8.2); BASOPHILS % (AUTO) 1.3 % (0-2); EOSINOPHILS % (AUTO) 8.6 % (0-6); HEMOGLOBIN 12.6 g/dL (12.0-15.5); MEAN CORPUSCULAR HEMOGLOBIN 33.4 pg (27.0-33.4); MEAN CORPUSCULAR VOLUME 96 fl (80-97); PLATELET COUNT 377 10^3/uL (150-450); RED BLOOD COUNT 3.77 10^6/uL (3.72-5.28); RED CELL DISTRIBUTION WIDTH 13.7 % (11.5-14.0); SEGMENTED NEUTROPHILS % (AUTO) 55.1 % (42-78); TOTAL CELLS COUNTED % (AUTO) 100 %; WHITE BLOOD COUNT 6.3 10^3/uL (4.0-10.5)
[2018-04-18 06:48] LABS: ALANINE AMINOTRANSFERASE 19 U/L (9-52); ALBUMIN 3.3 g/dL (3.5-5.0); ALKALINE PHOSPHATASE 51 U/L (38-126); ANION GAP 8 (5-19); ASPARTATE AMINO TRANSFERASE 20 U/L (14-36); BILIRUBIN,DIRECT 0.2 mg/dL (0.0-0.4); BILIRUBIN,TOTAL 0.3 mg/dL (0.2-1.3); BLOOD UREA NITROGEN 3 mg/dL (7-20); CALCIUM 8.6 mg/dL (8.4-10.2); CARBON DIOXIDE 23 mmol/L (22-30); CHLORIDE 112 mmol/L (98-107); GLUCOSE 73 mg/dL (75-110); POTASSIUM 4.1 mmol/L (3.6-5.0); SODIUM 143.2 mmol/L (137-145); TOTAL PROTEIN 6.2 g/dL (6.3-8.2)
[2018-04-18] MEDS ORDERED: ALBUTEROL SULFATE HFA (90 MCG/PUFF) 200 PUFF/8.5 GM MDI IH PRN (08:04)
[2018-04-18] MEDS: IRON POLYSACCHARIDES COMPLEX 150 MG CAPSULE PO SCH (10:57)
[2018-04-18] MEDS: DILTIAZEM HCL 120 MG CAP.SR.24H PO SCH ×2 (12:59→22:14)
--- NOTE | 2018-04-18 21:25 | PDOC H&P ---
History of Present Illness Admission Date/PCP: 04/17/18 21:14 ARACELI CORTEZ MD History of Present Illness: MICHAEL CAMEJO is a 67 year old female, She came to the office for evaluation of multiple complaints including urinary frequency and urgency, dehydration, loss of appetite. She was in the emergency room for evaluation because no bed was available in the hospital the urinalysis showed bacteriuria with pyuria. She is admitted for observation and management Past Medical History Cardiac Medical History: Reports: Hypertension Pulmonary Medical History: Reports: Bronchitis GI Medical History: Reports: Diverticulitis, Gastroesophageal Reflux Disease Musculoskeltal Medical History: Reports: Arthritis Psychiatric Medical History: Reports: Depression Past Surgical History Past Surgical History: Reports: Appendectomy, Hysterectomy, Tonsillectomy Social History Smoking Status: Never Smoker Frequency of Alcohol Use: None Hx Recreational Drug Use: No Drugs: None Hx Prescription Drug Abuse: No Family History Family History: Arthritis, CAD, CVA, DM, Hyperlipidemia, Hypertension, Malignancy, Thyroid Disfunction Parental Family History Reviewed: Yes Children Family History Reviewed: Yes Sibling(s) Family History Reviewed.: Yes Medication/Allergy Home Medications: Albuterol Sulfate [Proair HFA] 2 puff IH Q6HP PRN 04/17/18 Alprazolam [Xanax 0.5 mg Tablet] 0.5 mg PO QHS 04/17/18 Cyanocobalamin (Vitamin B-12) [Vitamin B-12 Inj 1000 Mcg/1 ml Vial] 1,000 mcg IM JORGE@1000 04/17/18 Dexlansoprazole [Dexilant 60 mg Capsule] 60 mg PO DAILY 04/17/18 Diltiazem HCl [Cardizem Cd 120 mg Capsule] 120 mg PO Q12 04/17/18 Ibandronate Sodium [Boniva] 150 mg PO .MONTHLY 04/17/18 Iron Polysaccharide Complex [Ferrex 150] 150 mg PO DAILY 04/17/18 Meclizine HCl [Antivert 25 mg Tablet] 25 mg PO TIDP PRN 04/17/18 Sodium Fluoride/Potassium Nit [Prevident 5000 Enamel Protect] 100 ml DT ASDIR PRN 04/17/18 Allergies/Adverse Reactions: aspirin Allergy (Severe, Verified 04/17/18 14:50) Anaphylaxis Penicillins Allergy (Severe, Verified 04/17/18 14:50) Anaphylaxis acetaminophen [From Vicodin] Allergy (Intermediate, Verified 04/17/18 14:50) Anaphylaxis hydrocodone [From Vicodin] Allergy (Intermediate, Verified 04/17/18 14:50) Anaphylaxis Sulfa (Sulfonamide Antibiotics) Allergy (Intermediate, Verified 04/17/18 14:50) iching, nausea codeine Allergy (Mild, Verified 04/17/18 14:50) Diarrhea meperidine HCl [From Demerol] Allergy (Mild, Verified 04/17/18 14:50) heart palpitations ciprofloxacin oral Allergy (Mild, Uncoded 04/18/18 01:19) itching; nausea Review of Systems Constitutional: ABSENT: chills, fever(s), headache(s), weight gain, weight loss Eyes: ABSENT: visual disturbances Ears: ABSENT: hearing changes Cardiovascular: ABSENT: chest pain, dyspnea on exertion, edema, orthropnea, palpitations Respiratory: ABSENT: cough, hemoptysis Gastrointestinal: ABSENT: abdominal pain, constipation, hematemesis, hematochezia, nausea, vomiting Genitourinary: PRESENT: dysuria, nocturia Musculoskeletal: PRESENT: back pain. ABSENT: joint swelling Integumentary: ABSENT: rash, wounds Neurological: ABSENT: abnormal gait, abnormal speech, confusion, dizziness, focal weakness, syncope Psychiatric: ABSENT: anxiety, depression, homidical ideation, suicidal ideation Endocrine: ABSENT: cold intolerance, heat intolerance, menstrual abnormalities, polydipsia, polyuria Hematologic/Lymphatic: ABSENT: easy bleeding, easy bruising, lymphadenopathy Physical Exam Vital Signs: Temp Pulse Resp BP Pulse Ox 98.0 F 54 L 20 127/77 H 100 04/18/18 20:12 04/18/18 20:12 04/18/18 20:12 04/18/18 20:12 04/18/18 20:12 Intake & Output 04/17/18 04/18/18 04/19/18 06:59 06:59 06:59 Intake Total 935 965 Output Total 1700 2400 Balance -765 -1435 Weight 55.3 kg General appearance: PRESENT: no acute distress Head exam: PRESENT: atraumatic, normocephalic Eye exam: PRESENT: conjunctiva pink, EOMI, PERRLA Ear exam: PRESENT: normal external ear exam Mouth exam: PRESENT: moist, tongue midline Neck exam: PRESENT: full ROM Respiratory exam: PRESENT: clear to auscultation franky Cardiovascular exam: PRESENT: RRR, +S1, +S2 Vascular exam: PRESENT: normal capillary refill GI/Abdominal exam: PRESENT: normal bowel sounds, soft Neurological exam: PRESENT: alert, CN II-XII grossly intact Psychiatric exam: PRESENT: anxious Skin exam: PRESENT: dry, intact, warm Results Laboratory Results: 04/18/18 05:35 04/18/18 05:35 04/17/18 04/18/18 04/18/18 21:58 05:35 05:35 WBC 6.3 RBC 3.77 Hgb 12.6 Hct 36.0 MCV 96 MCH 33.4 MCHC 35.0 RDW 13.7 Plt Count 377 Seg Neutrophils % 55.1 Lymphocytes % 26.0 Monocytes % 9.0 Eosinophils % 8.6 H Basophils % 1.3 Absolute Neutrophils 3.5 Absolute Lymphocytes 1.6 Absolute Monocytes 0.6 Absolute Eosinophils 0.5 Absolute Basophils 0.1 Sodium 144.7 143.2 Potassium 3.8 4.1 Chloride 107 112 H Carbon Dioxide 25 23 Anion Gap 13 8 BUN 5 L 3 L Creatinine 0.61 0.56 Est GFR ( Amer) > 60 > 60 Est GFR (Non-Af Amer) > 60 > 60 Glucose 80 73 L Calcium 9.1 8.6 Total Bilirubin 0.4 0.3 AST 25 20 ALT 17 19 Alkaline Phosphatase 58 51 Total Protein 7.3 6.2 L Albumin 4.0 3.3 L Impressions: Chest X-Ray 04/17/18 16:49 IMPRESSION: NO ACUTE FINDINGS. Assessment & Plan - Diagnosis (1) Urinary tract infection Qualifiers: Urinary tract infection type: site unspecified Hematuria presence: without hematuria Qualified Code(s): N39.0 - Urinary tract infection, site not specified Is this a current diagnosis for this admission?: Yes Plan: Patient is admitted for observation and management (2) Dehydration Is this a current diagnosis for this admission?: Yes
[2018-04-18] MEDS: ALPRAZOLAM 0.5 MG TABLET PO SCH (22:13)
[2018-04-19] MEDS: CIPROFLOXACIN 400 MG/D5W RTU 400 MG/200 ML RTUPB IV SCH ×2 (02:21→15:51)
[2018-04-19] MEDS: NORMAL SALINE 1000 ML 1,000 ML IV PRN (04:50)
[2018-04-19] MEDS: LANSOPRAZOLE 30 MG TAB.RAP.DR PO SCH (05:22)
[2018-04-19] MEDS: DILTIAZEM HCL 120 MG CAP.SR.24H PO SCH ×2 (09:30→22:55)
[2018-04-19] MEDS: IRON POLYSACCHARIDES COMPLEX 150 MG CAPSULE PO SCH (09:30)
[2018-04-19] MEDS: ALPRAZOLAM 0.5 MG TABLET PO SCH (22:55)
[2018-04-20] MEDS: CIPROFLOXACIN 400 MG/D5W RTU 400 MG/200 ML RTUPB IV SCH ×2 (02:46→14:24)
[2018-04-20] MEDS: NORMAL SALINE 1000 ML 1,000 ML IV PRN (05:47)
[2018-04-20] MEDS: LANSOPRAZOLE 30 MG TAB.RAP.DR PO SCH (05:47)
--- NOTE | 2018-04-20 08:31 | PDOC DISCHARGE SUMMARY ---
General - Admit/Disc Date/PCP Admission Date/Primary Care Provider: 04/17/18 21:14 ARACELI CORTEZ MD Discharge Date: 04/20/18 - Discharge Diagnosis (1) Urinary tract infection Is this a current diagnosis for this admission?: Yes (2) Dehydration Is this a current diagnosis for this admission?: Yes - Additional Information Home Medications: RX: Albuterol Sulfate [Proair HFA] 2 puff IH Q6HP PRN 04/17/18 RX: Cyanocobalamin (Vitamin B-12) [Vitamin B-12 Inj 1000 Mcg/1 ml Vial] 1,000 mcg IM JORGE@1000 04/17/18 RX: Dexlansoprazole [Dexilant 60 mg Capsule] 60 mg PO DAILY 04/17/18 RX: Ibandronate Sodium [Boniva] 150 mg PO .MONTHLY 04/17/18 RX: Iron Polysaccharide Complex [Ferrex 150] 150 mg PO DAILY 04/17/18 RX: Meclizine HCl [Antivert 25 mg Tablet] 25 mg PO TIDP PRN 04/17/18 RX: Sodium Fluoride/Potassium Nit [Prevident 5000 Enamel Protect] 100 ml DT ASDIR PRN 04/17/18 History of Present Illness History of Present Illness: MICHAEL CAMEJO is a 67 year old female, She came to the office for evaluation of multiple complaints including urinary frequency and urgency, dehydration, loss of appetite. She was in the emergency room for evaluation because no bed was available in the hospital the urinalysis showed bacteriuria with pyuria. She is admitted for observation and management Hospital Course Hospital Course: She was admitted for observation and management of dehydration and UTI, she was treated with IV fluids and antibiotic Physical Exam Vital Signs: Temp Pulse Resp BP Pulse Ox 98.0 F 67 16 107/50 L 99 04/20/18 03:35 04/20/18 03:35 04/20/18 03:35 04/20/18 03:35 04/20/18 03:35 Intake & Output 04/19/18 04/20/18 04/21/18 06:59 06:59 06:59 Intake Total 1905 2574 Output Total 2400 1800 Balance -495 774 Weight 57.9 kg 58.1 kg General appearance: PRESENT: no acute distress, well-developed, well-nourished Head exam: PRESENT: atraumatic, normocephalic Eye exam: PRESENT: conjunctiva pink, EOMI, PERRLA Ear exam: PRESENT: normal external ear exam Mouth exam: PRESENT: moist, tongue midline Neck exam: PRESENT: full ROM Respiratory exam: PRESENT: clear to auscultation franky Cardiovascular exam: PRESENT: RRR, +S1, +S2 Pulses: PRESENT: normal dorsalis pedis pul, +2 pedal pulses bilateral Vascular exam: PRESENT: normal capillary refill GI/Abdominal exam: PRESENT: normal bowel sounds, soft Rectal exam: PRESENT: deferred Neurological exam: PRESENT: alert, awake, oriented to person, oriented to place , oriented to time, oriented to situation, CN II-XII grossly intact Psychiatric exam: PRESENT: appropriate affect, normal mood Skin exam: PRESENT: dry, intact, warm Results Laboratory Results: 04/18/18 05:35 04/18/18 05:35 Impressions: Chest X-Ray 04/17/18 16:49 IMPRESSION: NO ACUTE FINDINGS. Qualifiers - * PATIENT BEING DISCHARGED WITH ANY OF THE FOLLOWING DIAGNOSIS: No
[2018-04-20] MEDS: IRON POLYSACCHARIDES COMPLEX 150 MG CAPSULE PO SCH (10:30)
[2018-04-20] MEDS: DILTIAZEM HCL 120 MG CAP.SR.24H PO SCH (10:30)
[2018-04-20] MEDS ORDERED: PHENAZOPYRIDINE HCL 200 MG TABLET PO ONE (10:30)
[2018-04-20 11:28] VITALS: BP 120/72
[2018-04-23] MEDS ORDERED: CYANOCOBALAMIN (VITAMIN B-12) INJ 1000 MCG/1 ML VIAL IM SCH (10:00)
== END 2018-04-20 14:00 | disposition home or self-care (01) ==
LOC: ER 14:49 → EH 21:14 → 3S 22:36
PROVIDERS: ADMIT Internal Medicine; ATTEND Internal Medicine
DX: N39.0 Urinary tract infection, site not specified (principal); E86.0 Dehydration; R63.0 Anorexia; M54.9 Dorsalgia, unspecified; K21.9 Gastro-esophageal reflux disease without esophagitis; Z79.899 Other long term (current) drug therapy; Z90.49 Acquired absence of other specified parts of digestive tract; Z90.710 Acquired absence of both cervix and uterus; Z87.19 Personal history of other diseases of the digestive system
CPT/HCPCS: 99281; 36415 ×2; 87040; 87086; 85025 ×2; 87077; 80076; 80048; 80053; 81001; 71046; G0378 ×5; A9270 ×12; J7030 ×3; J0744 ×3; J3490

== ENCOUNTER 2018-05-16 13:34 | Emergency (ER) | payer MEDICARE, MEDICAID ==
--- NOTE | 2018-05-16 14:17 | ER Document Report ---
ED General - General Chief Complaint: Abdominal Pain Stated Complaint: DIRECT ADMIT / ADOMINAL PAIN Time Seen by Provider: 05/16/18 13:40 TRAVEL OUTSIDE OF THE [place] IN LAST 30 DAYS: No COUNTRY TRAVELED TO/FROM: [place] - Related Data Allergies/Adverse Reactions: aspirin Allergy (Severe, Verified 05/16/18 13:36) Anaphylaxis Penicillins Allergy (Severe, Verified 05/16/18 13:36) Anaphylaxis acetaminophen [From Vicodin] Allergy (Intermediate, Verified 05/16/18 13:36) Anaphylaxis hydrocodone [From Vicodin] Allergy (Intermediate, Verified 05/16/18 13:36) Anaphylaxis Sulfa (Sulfonamide Antibiotics) Allergy (Intermediate, Verified 05/16/18 13:36) iching, nausea codeine Allergy (Mild, Verified 05/16/18 13:36) Diarrhea meperidine HCl [From Demerol] Allergy (Mild, Verified 05/16/18 13:36) heart palpitations ciprofloxacin oral Allergy (Mild, Uncoded 05/16/18 13:36) itching; nausea Past Medical History - Social History Family History: Arthritis, CAD, CVA, DM, Hyperlipidemia, Hypertension, Malignancy, Thyroid Disfunction - Past Medical History Cardiac Medical History: Reports: Hx Hypertension Denies: Hx Congestive Heart Failure, Hx Heart Attack Pulmonary Medical History: Reports: Hx Asthma, Hx Bronchitis, Hx Pneumonia Denies: Hx COPD, Hx Tuberculosis Neurological Medical History: Denies: Hx Cerebrovascular Accident, Hx Seizures Renal/ Medical History: Denies: Hx End Stage Renal Disease, Hx Kidney Stones, Hx Peritoneal Dialysis GI Medical History: Reports: Hx Crohn's Disease, Hx Diverticulitis, Hx Gastroesophageal Reflux Disease, Hx Hiatal Hernia, Hx Irritable Bowel. Denies: Hx Cirrhosis, Hx Hepatitis, Hx Ulcer Musculoskeletal Medical History: Reports Hx Arthritis, Denies Hx Multiple Sclerosis, Reports Hx Musculoskeletal Deformity, Reports Hx Musculoskeletal Trauma Psychiatric Medical History: Reports: Hx Anxiety, Hx Depression Denies: Hx Bipolar Disorder, Hx Schizophrenia Infectious Medical History: Denies: Hx Hepatitis Past Surgical History: Reports: Hx Abdominal Surgery - small intestine removal, Hx Appendectomy, Hx Bowel Surgery - small intestine, Hx Breast Surgery - biopsy , Hx Hysterectomy, Hx Neurologic Surgery - brain tumor removed, Hx Tonsillectomy. Denies: Hx Mastectomy, Hx Open Heart Surgery, Hx Pacemaker - Immunizations Immunizations up to date: Yes Hx Diphtheria, Pertussis, Tetanus Vaccination: Yes - 09/2010 Hx Pneumococcal Vaccination: 08/24/10 Physical Exam - Vital signs Vitals: Temp Pulse Resp BP Pulse Ox 98.1 F 82 16 138/80 H 100 05/16/18 13:42 05/16/18 13:42 05/16/18 13:42 05/16/18 13:42 05/16/18 13:42 Course - Re-evaluation Re-evalutation: 05/16/18 14:23 Patient was seen by Dr. Cortez in his office today. He sent her to emergency department for admission for vomiting, dirrhea, and dehydration. Orders he sent were faxed to pharmacy by nursing staff. - Vital Signs Vital signs: Temp Pulse Resp BP Pulse Ox 98.1 F 82 16 138/80 H 100 05/16/18 13:42 05/16/18 13:42 05/16/18 13:42 05/16/18 13:42 05/16/18 13:42 Discharge - Discharge Clinical Impression: Dysuria, Dehydration Abdominal pain Qualifiers: Abdominal location: lower abdomen, unspecified Qualified Code(s): R10.30 - Lower abdominal pain, unspecified Vomiting Qualifiers: Vomiting type: unspecified Vomiting Intractability: unspecified Nausea presence : with nausea Qualified Code(s): R11.2 - Nausea with vomiting, unspecified Condition: Good Disposition: ADMITTED OBSERVATION Admitting Provider: Medardo Unit Admitted: Medical Floor Referrals: ARACELI CORTEZ MD [Primary Care Provider] - Follow up as needed
--- NOTE | 2018-05-16 14:22 | ER Document Report ---
ED GI/ - General Mode of Arrival: Ambulatory Information source: Patient TRAVEL OUTSIDE OF THE [place]. IN LAST 30 DAYS: No COUNTRY TRAVELED TO/FROM: [place] <YAMILET MANZANARES - Last Filed: 05/16/18 14:15> <GORDON FERRELL - Last Filed: 05/18/18 11:56> - General Chief Complaint: Abdominal Pain Stated Complaint: DIRECT ADMIT / ADOMINAL PAIN Time Seen by Provider: 05/16/18 13:40 Notes: Patient is a 67 year old female that presents to the emergency department today stating that "my doctor wants me admitted". Patient is well-known to this emergency department and very often has this same complaint. Patient states she has a UTI. When asked if her primary care physician took a urine sample today she says no, stating "he just knows me". Patient states she has had associated nausea, vomiting, diarrhea, feeling like she will pass out, and lower extremity swelling. (YAMILET MANZANARES) - Related Data Allergies/Adverse Reactions: aspirin Allergy (Severe, Verified 05/16/18 13:36) Anaphylaxis Penicillins Allergy (Severe, Verified 05/16/18 13:36) Anaphylaxis acetaminophen [From Vicodin] Allergy (Intermediate, Verified 05/16/18 13:36) Anaphylaxis hydrocodone [From Vicodin] Allergy (Intermediate, Verified 05/16/18 13:36) Anaphylaxis Sulfa (Sulfonamide Antibiotics) Allergy (Intermediate, Verified 05/16/18 13:36) iching, nausea codeine Allergy (Mild, Verified 05/16/18 13:36) Diarrhea meperidine HCl [From Demerol] Allergy (Mild, Verified 05/16/18 13:36) heart palpitations ciprofloxacin oral Allergy (Mild, Uncoded 05/16/18 13:36) itching; nausea Past Medical History - General Information source: [facility] Records - Social History Smoking Status: Never Smoker Cigarette use (# per day): No Frequency of alcohol use: None Drug Abuse: None Lives with: Family Family History: Arthritis, CAD, CVA, DM, Hyperlipidemia, Hypertension, Malignancy, Thyroid Disfunction - Past Medical History Cardiac Medical History: Reports: Hx Hypertension Pulmonary Medical History: Reports: Hx Asthma, Hx Bronchitis, Hx Pneumonia GI Medical History: Reports: Hx Crohn's Disease, Hx Diverticulitis, Hx Gastroesophageal Reflux Disease, Hx Hiatal Hernia, Hx Irritable Bowel Musculoskeletal Medical History: Reports Hx Arthritis, Reports Hx Musculoskeletal Deformity, Reports Hx Musculoskeletal Trauma Psychiatric Medical History: Reports: Hx Anxiety, Hx Depression Past Surgical History: Reports: Hx Abdominal Surgery - small intestine removal, Hx Appendectomy, Hx Bowel Surgery - small intestine, Hx Breast Surgery - biopsy , Hx Hysterectomy, Hx Neurologic Surgery - brain tumor removed, Hx Tonsillectomy - Immunizations Immunizations up to date: Yes Hx Diphtheria, Pertussis, Tetanus Vaccination: Yes - 09/2010 Hx Pneumococcal Vaccination: 08/24/10 <YAMILET MANZANARES - Last Filed: 05/16/18 14:15> Review of Systems - Review of Systems Constitutional: No symptoms reported EENT: No symptoms reported Cardiovascular: See HPI, Dizziness Respiratory: No symptoms reported Gastrointestinal: See HPI, Abdominal pain, Diarrhea, Nausea, Vomiting Genitourinary: No symptoms reported Female Genitourinary: No symptoms reported Musculoskeletal: No symptoms reported Skin: No symptoms reported Hematologic/Lymphatic: No symptoms reported Neurological/Psychological: No symptoms reported -: Yes All other systems reviewed and negative <YAMILET MANZANARES - Last Filed: 05/16/18 14:15> Physical Exam <YAMILET MANZANARES - Last Filed: 05/16/18 14:15> <GORDON FERRELL - Last Filed: 05/18/18 11:56> - Vital signs Vitals: Temp Pulse Resp BP Pulse Ox 98.1 F 82 16 138/80 H 100 05/16/18 13:42 05/16/18 13:42 05/16/18 13:42 05/16/18 13:42 05/16/18 13:42 - Notes Notes: Physical Exam: General: Alert, appears to be at her baseline. HEENT: Normocephalic. Atraumatic. PERRL. Extraocular movements intact. Oropharynx clear. Neck: Supple. Non-tender. Respiratory: No respiratory distress. Clear and equal breath sounds bilaterally. Cardiovascular: Regular rate and rhythm. Abdominal: Anticipatory pain prior to palpation of abdomen. Minimal diffuse abdominal tenderness with palpation. No distension. Normal Bowel Sounds. Back: Non-tender. No deformity or step off. Extremities: Moves all four extremities. Upper extremities: Normal inspection. Normal ROM. Lower extremities: Normal inspection. No edema. Normal ROM. Neurological: Normal cognition. AAOx4. Normal speech. Psychological: Normal affect. Normal Mood. Skin: Warm. Dry. Normal color. (YAMILET MANZANARES) Course <YAMILET MANZANARES - Last Filed: 05/16/18 14:15> - Laboratory Result Diagrams: 05/16/18 15:30 05/16/18 16:48 <GORDON FERRELL - Last Filed: 05/18/18 11:56> - Re-evaluation Re-evalutation: 05/16/18 15:28 Nursing supervisor packing room, Marleny Paredes, discussed case with Dr. Cortez. He stated to her once her fluids run if no concerning findings on lab work patient can be discharged back home. Patient has been admitted numerous times for similar complaints and in the emergency department during her stay she has not had any episodes of vomiting is well-appearing with normal vitals and shows no signs of urinary tract infection. Pending lab work at this time. 05/16/18 16:14 Blood work still pending at the time to be talked to patient at bedside. She has been in the hospital approximately 30 times since the beginning of just this year alone. It appears she comes for very similar complaints most of the time. Upon discussion she does acknowledge that she has had issues with diarrhea and constipation for many years. She is not followed by a GI doctor, she says her old GI doctors retired. I discussed different medications including daily Metamucil and probiotics she states that neither of those have helped in the past. After lengthy discussion with patient, I feel her symptoms are consistent with her acute on chronic abdominal cramping with intermittent diarrhea and constipation. Labs are still pending but did not feel her issues related to any infectious etiology at this time. She is well-appearing at bedside in no distress. She continues not to have any signs of nausea or vomiting at this time. 05/16/18 17:45 Labs wnl or non significant. Patient did not have any vomiting in ED. Discussed urine culture was performed, will be called in 2-3 days if positive. Will provide Pyridium for dysuria until urine cx complete. Will also provide bentyl, as well as zofran PRN. 05/16/18 17:47 05/16/18 19:25 Patient walking around emergency department. She states that she gave herself a rectal exam felt that her colon was dry. Again, her vitals are normal and her labs show no concerning findings of dehydration regarding her kidney function. I did discuss she needs to be on a bowel regimen but everything I recommended she states she cannot take. Advised to follow with Dr. Cortez and a GI consultation (GORDON FERRELL) - Vital Signs Vital signs: Temp Pulse Resp BP Pulse Ox 98.1 F 75 16 138/64 H 100 05/16/18 13:42 05/16/18 18:47 05/16/18 13:42 05/16/18 18:47 05/16/18 18:47 - Laboratory Laboratory results interpreted by me: 05/16/18 16:48 Carbon Dioxide 31 H Discharge <YAMILET MANZANARES - Last Filed: 05/16/18 14:15> <GORDON FERRELL - Last Filed: 05/18/18 11:56> - Discharge Clinical Impression: Dysuria, Dehydration Abdominal pain Qualifiers: Abdominal location: lower abdomen, unspecified Qualified Code(s): R10.30 - Lower abdominal pain, unspecified Vomiting Qualifiers: Vomiting type: unspecified Vomiting Intractability: unspecified Nausea presence : with nausea Qualified Code(s): R11.2 - Nausea with vomiting, unspecified Condition: Good Disposition: HOME, SELF-CARE Instructions: Abdominal Pain ([facility]), Antispasmodics ([facility]) Additional Instructions: Please follow-up with Dr. Cortez tomorrow for reevaluation. Urine culture has been obtained and you will be notified if culture is positive. There is no signs of urinary infection at this time. Dr. Cortez can refer you to a GI specialist as some of the issues you were dealing with a been chronic in nature and you would benefit from being evaluated by aviation tactical readiness officer. Prescriptions: Dicyclomine HCl [Bentyl 20 mg Tablet] 20 mg PO QID #20 tablet Promethazine HCl 25 mg PO TID PRN #15 tablet PRN Reason: Referrals: ARACELI CORTEZ MD [Primary Care Provider] - Follow up tomorrow (For re- evaluation) Scribe Attestation: 05/18/18 11:56 I personally performed the services described in the documentation, reviewed and edited the documentation which was dictated to the scribe in my presence, and it accurately records my words and actions. (GORDON FERRELL) Scribe Documentation - Scribe Written by Scribe:: Derik Burden, 05/16/2018 1422 acting as scribe for :: Brando <YAMILET MANZANARES - Last Filed: 05/16/18 14:15>
[2018-05-16] MEDS ORDERED: NORMAL SALINE 1000 ML 1,000 ML IV ONE (15:09)
[2018-05-16] MEDS ORDERED: ONDANSETRON HCL INJ/PF 4 MG/2 ML SDV IV ONE (15:10)
[2018-05-16 15:16] LABS: APPEARANCE,URINE CLEAR; BILIRUBIN,URINE NEGATIVE (NEGATIVE); COLOR,URINE YELLOW; GLUCOSE, URINE NEGATIVE (NEGATIVE); KETONES,URINE NEGATIVE (NEGATIVE); LEUKOCYTE ESTERASE,URINE NEGATIVE (NEGATIVE); NITRITE,URINE NEGATIVE (NEGATIVE); PROTEIN,URINE NEGATIVE (NEGATIVE); URINE SPECIFIC GRAVITY 1.012; UROBILINOGEN,URINE NEGATIVE mg/dL (<2.0)
[2018-05-16 15:48] LABS: ABSOLUTE BASOPHILS # (AUTO) 0.1 10^3/uL (0.0-0.2); ABSOLUTE EOSINOPHILS # (AUTO) 0.1 10^3/uL (0.0-0.6); ABSOLUTE MONOCYTES (AUTO) 0.8 10^3/uL (0.1-1.4); HEMATOCRIT 39.2 % (36.0-47.0); HEMOGLOBIN 13.5 g/dL (12.0-15.5); MEAN CORPUSCULAR HGB CONC 34.4 g/dL (32.0-36.0); MEAN CORPUSCULAR VOLUME 97 fl (80-97); RED BLOOD COUNT 4.06 10^6/uL (3.72-5.28); TOTAL CELLS COUNTED % (AUTO) 100 %
[2018-05-16 15:53] LABS: BASOPHILS % (AUTO) 1.1 % (0-2); EOSINOPHILS % (AUTO) 1.5 % (0-6); MEAN CORPUSCULAR HEMOGLOBIN 33.3 pg (27.0-33.4); MONOCYTES % (AUTO) 7.9 % (3-13); PLATELET COUNT 402 10^3/uL (150-450); SEGMENTED NEUTROPHILS % (AUTO) 69.5 % (42-78); WHITE BLOOD COUNT 10.1 10^3/uL (4.0-10.5)
[2018-05-16 17:12] LABS: ALANINE AMINOTRANSFERASE 29 U/L (9-52); ALBUMIN 4.3 g/dL (3.5-5.0); ALKALINE PHOSPHATASE 64 U/L (38-126); ANION GAP 7 (5-19); ASPARTATE AMINO TRANSFERASE 26 U/L (14-36); BILIRUBIN,DIRECT 0.3 mg/dL (0.0-0.4); BILIRUBIN,TOTAL 0.7 mg/dL (0.2-1.3); BLOOD UREA NITROGEN 15 mg/dL (7-20); CALCIUM 9.3 mg/dL (8.4-10.2); CARBON DIOXIDE 31 mmol/L (22-30); CHLORIDE 103 mmol/L (98-107); GLUCOSE 86 mg/dL (75-110); POTASSIUM 3.7 mmol/L (3.6-5.0); SODIUM 140.8 mmol/L (137-145); TOTAL PROTEIN 7.4 g/dL (6.3-8.2)
[2018-05-16] MEDS ORDERED: 1/2 NORMAL SALINE 1,000 ML IV ONE (18:47)
[2018-05-16] MEDS ORDERED: FAMOTIDINE INJ/PF 20 MG/2 ML SDV IV ONE (18:48)
[2018-05-16 18:50] VITALS: BP 138/64
== END 2018-05-16 20:49 | disposition home or self-care (01) ==
LOC: ER 13:34 → EH 13:58 → UNDOADMOB 13:58 → ER 20:49
DX: R30.0 Dysuria (principal); R10.30 Lower abdominal pain, unspecified; R10.817 Generalized abdominal tenderness; R11.2 Nausea with vomiting, unspecified; E86.0 Dehydration; R19.7 Diarrhea, unspecified; R42 Dizziness and giddiness; I10 Essential (primary) hypertension; J45.909 Unspecified asthma, uncomplicated; Z87.892 Personal history of anaphylaxis; Z88.6 Allergy status to analgesic agent; Z88.0 Allergy status to penicillin; Z88.5 Allergy status to narcotic agent; Z88.2 Allergy status to sulfonamides; Z88.1 Allergy status to other antibiotic agents; Z90.49 Acquired absence of other specified parts of digestive tract
CPT/HCPCS: 99284; 96361; 96374; 96375; 36415; 87086; 85025; 80076; 80048; 81001; J2405; S0028

== ENCOUNTER 2018-06-03 14:15 | Emergency (ER) | payer MEDICARE, MEDICAID ==
[2018-06-03 14:23] VITALS: BP 150/80
--- NOTE | 2018-06-03 14:39 | ER Document Report ---
ED Medical Screen (RME) - General Chief Complaint: Dizziness Stated Complaint: ARM PAIN Time Seen by Provider: 06/03/18 14:35 Mode of Arrival: Ambulatory Information source: Patient TRAVEL OUTSIDE OF THE [place] IN LAST 30 DAYS: No COUNTRY TRAVELED TO/FROM: [facility] Patient complains to provider of: dizziness, anemia Onset: Other - pt is requesting to have her B12 injections done as her PCP was unable to administer them last week. She feels dizzy and thinks she is anemic - Related Data Allergies/Adverse Reactions: aspirin Allergy (Severe, Verified 06/03/18 14:16) Anaphylaxis Penicillins Allergy (Severe, Verified 06/03/18 14:16) Anaphylaxis acetaminophen [From Vicodin] Allergy (Intermediate, Verified 06/03/18 14:16) Anaphylaxis hydrocodone [From Vicodin] Allergy (Intermediate, Verified 06/03/18 14:16) Anaphylaxis Sulfa (Sulfonamide Antibiotics) Allergy (Intermediate, Verified 06/03/18 14:16) iching, nausea codeine Allergy (Mild, Verified 06/03/18 14:16) Diarrhea meperidine HCl [From Demerol] Allergy (Mild, Verified 06/03/18 14:16) heart palpitations ciprofloxacin oral Allergy (Mild, Uncoded 06/03/18 14:16) itching; nausea Past Medical History - Social History Family history: Reviewed & Not Pertinent - Past Medical History Cardiac Medical History: Reports: Hx Hypertension Denies: Hx Congestive Heart Failure, Hx Heart Attack Pulmonary Medical History: Reports: Hx Asthma, Hx Bronchitis, Hx Pneumonia Denies: Hx COPD, Hx Tuberculosis Neurological Medical History: Denies: Hx Cerebrovascular Accident, Hx Seizures Renal/ Medical History: Denies: Hx End Stage Renal Disease, Hx Kidney Stones, Hx Peritoneal Dialysis GI Medical History: Reports: Hx Crohn's Disease, Hx Diverticulitis, Hx Gastroesophageal Reflux Disease, Hx Hiatal Hernia, Hx Irritable Bowel. Denies: Hx Cirrhosis, Hx Hepatitis, Hx Ulcer Musculoskeltal Medical History: Reports Hx Arthritis, Denies Hx Multiple Sclerosis, Reports Hx Musculoskeletal Deformity, Reports Hx Musculoskeletal Trauma Psychiatric Medical History: Reports: Hx Anxiety, Hx Depression Denies: Hx Bipolar Disorder, Hx Schizophrenia Infectious Medical History: Denies: Hx Hepatitis Past Surgical History: Reports: Hx Abdominal Surgery - small intestine removal, Hx Appendectomy, Hx Bowel Surgery - small intestine, Hx Breast Surgery - biopsy , Hx Hysterectomy, Hx Neurologic Surgery - brain tumor removed, Hx Tonsillectomy. Denies: Hx Mastectomy, Hx Open Heart Surgery, Hx Pacemaker - Immunizations Immunizations up to date: Yes Hx Diphtheria, Pertussis, Tetanus Vaccination: Yes - 09/2010 History of Influenza Vaccine for 05/2017 - 10/2017 Season: Yes Physical Exam - Vital signs Vitals: Temp Pulse Resp BP Pulse Ox 98.8 F 76 18 150/80 H 100 06/03/18 14:21 06/03/18 14:21 06/03/18 14:21 06/03/18 14:21 06/03/18 14:21 Course - Vital Signs Vital signs: Temp Pulse Resp BP Pulse Ox 98.8 F 76 18 150/80 H 100 06/03/18 14:21 06/03/18 14:21 06/03/18 14:21 06/03/18 14:21 06/03/18 14:21 Doctor's Discharge - Discharge Referrals: ARACELI CORTEZ MD [Primary Care Provider] - Follow up as needed
[2018-06-03] MEDS ORDERED: CYANOCOBALAMIN (VITAMIN B-12) INJ 1000 MCG/1 ML VIAL IM ONE (15:10)
--- NOTE | 2018-06-03 15:20 | ER Document Report ---
ED General - General Mode of Arrival: Ambulatory TRAVEL OUTSIDE OF THE [place] IN LAST 30 DAYS: No COUNTRY TRAVELED TO/FROM: [place] - General Chief Complaint: Dizziness Stated Complaint: ARM PAIN Time Seen by Provider: 06/03/18 14:35 Notes: 67-year-old female patient well-known to the emergency room with significant mental illness. She comes today complaining about being dizzy for 2 days, she had a prescription for meclizine filled 3 days ago. She complains about rash on her neck and tenderness due to her degenerative arthritis. She has some bruising and insignificant skin tear on the right proximal lateral forearm but she wants antibiotic shots for. She brings her prescription of vitamin B12 wanting injections into each arm. She has to have one in each arm to balance things out to cause her blood pressure to go down and her heart rate come down. She states she is suffering from skin irritation to the neck, the right arm injury, dizziness, loss of appetite, and anemia. She used to present here almost every other day wanting a bottle of mag citrate now and a bottle to go for her constipation. She was told that the records show a prescription was filled today for Macrodantin, she states she cannot take generic medication. I told her to go to the drugstore and warehouse picker the prescription that was filled for her suspected bladder infection. She will be given 1 injection of vitamin B12, as it is a benign intervention, it will be split into 2 shots to balance things out as she states she requires. She is frequently sent to the emergency room from the office for direct admission for factitious complaints. While in the emergency room we will discover that her lab work shows that her complaints are all invalid, we will contact her doctor and he will requested us to discharge her home and canceled the admission. (MIKE GRIGGS) - Related Data Allergies/Adverse Reactions: aspirin Allergy (Severe, Verified 06/03/18 14:16) Anaphylaxis Penicillins Allergy (Severe, Verified 06/03/18 14:16) Anaphylaxis acetaminophen [From Vicodin] Allergy (Intermediate, Verified 06/03/18 14:16) Anaphylaxis hydrocodone [From Vicodin] Allergy (Intermediate, Verified 06/03/18 14:16) Anaphylaxis Sulfa (Sulfonamide Antibiotics) Allergy (Intermediate, Verified 06/03/18 14:16) iching, nausea codeine Allergy (Mild, Verified 06/03/18 14:16) Diarrhea meperidine HCl [From Demerol] Allergy (Mild, Verified 06/03/18 14:16) heart palpitations ciprofloxacin oral Allergy (Mild, Uncoded 06/03/18 14:16) itching; nausea Past Medical History - General Information source: Patient - Social History Smoking Status: Never Smoker Frequency of alcohol use: None Drug Abuse: None Family History: Arthritis, CAD, CVA, DM, Hyperlipidemia, Hypertension, Malignancy, Thyroid Disfunction Patient has suicidal ideation: No Patient has homicidal ideation: No - Past Medical History Cardiac Medical History: Reports: Hx Hypertension Denies: Hx Congestive Heart Failure, Hx Heart Attack Pulmonary Medical History: Reports: Hx Asthma, Hx Bronchitis, Hx Pneumonia Denies: Hx COPD, Hx Tuberculosis Neurological Medical History: Denies: Hx Cerebrovascular Accident, Hx Seizures Renal/ Medical History: Denies: Hx End Stage Renal Disease, Hx Kidney Stones, Hx Peritoneal Dialysis GI Medical History: Reports: Hx Crohn's Disease, Hx Diverticulitis, Hx Gastroesophageal Reflux Disease, Hx Hiatal Hernia, Hx Irritable Bowel. Denies: Hx Cirrhosis, Hx Hepatitis, Hx Ulcer Musculoskeletal Medical History: Reports Hx Arthritis, Denies Hx Multiple Sclerosis, Reports Hx Musculoskeletal Deformity, Reports Hx Musculoskeletal Trauma Psychiatric Medical History: Reports: Hx Anxiety, Hx Depression Denies: Hx Bipolar Disorder, Hx Schizophrenia Infectious Medical History: Denies: Hx Hepatitis Past Surgical History: Reports: Hx Abdominal Surgery - small intestine removal, Hx Appendectomy, Hx Bowel Surgery - small intestine, Hx Breast Surgery - biopsy , Hx Hysterectomy, Hx Neurologic Surgery - brain tumor removed, Hx Tonsillectomy. Denies: Hx Mastectomy, Hx Open Heart Surgery, Hx Pacemaker - Immunizations Immunizations up to date: Yes Hx Diphtheria, Pertussis, Tetanus Vaccination: Yes - 09/2010 Hx Pneumococcal Vaccination: 08/24/10 Physical Exam - Vital signs Vitals: Temp Pulse Resp BP Pulse Ox 98.8 F 76 18 150/80 H 100 06/03/18 14:21 06/03/18 14:21 06/03/18 14:21 06/03/18 14:21 06/03/18 14:21 - Notes Notes: Physical Exam: General: Alert, appears well. HEENT: Normocephalic. Atraumatic. PERRL. Extraocular movements intact. Oropharynx clear. Neck: Supple. Non-tender. Respiratory: No respiratory distress. Clear and equal breath sounds bilaterally. Cardiovascular: Regular rate and rhythm. Abdominal: Normal Inspection. Non-tender. No distension. Normal Bowel Sounds. Back: Complains of some pain with palpation over the discolored area which she states is likely due to her "degenerative disc disease". Kyphosis. No deformity or step off. Extremities: Moves all four extremities. Upper extremities: Normal inspection. Normal ROM. Lower extremities: Normal inspection. No edema. Normal ROM. Neurological: Normal cognition. AAOx4. Normal speech. Psychological: Normal affect. Normal Mood. Skin: Warm. Dry. Area of discoloration to upper thoracic region. Bruising over the right forearm with superficial excoriations, bleeding controlled. (YAMILET MANZANARES) - Vital Signs Vital signs: Temp Pulse Resp BP Pulse Ox 98.8 F 76 18 150/80 H 100 06/03/18 14:21 06/03/18 14:21 06/03/18 14:21 06/03/18 14:21 06/03/18 14:21 Discharge - Discharge Clinical Impression: Dizziness, Anxiety, Vitamin B12 injection Skin tear of right forearm without complication Qualifiers: Encounter type: initial encounter Qualified Code(s): S51.811A - Laceration without foreign body of right forearm, initial encounter Condition: Stable Disposition: HOME, SELF-CARE Additional Instructions: You were given your vitamin B12 shot today in the emergency room. Keep the minor skin tears on your right arm clean and dressed with Band-Aids. Go to your pharmacy and warehouse picker the antibiotic for your bladder infection that was filled previously today. Continue taking the meclizine that was filled 3 days ago for your dizziness. Follow-up with Dr. Cortez on Tuesday to recheck your urine. Referrals: ARACELI CORTEZ MD [Primary Care Provider] - 06/05/18 Scribe Attestation: 06/03/18 15:26 I personally performed the services described in the documentation, reviewed and edited the documentation which was dictated to the scribe in my presence, and it accurately records my words and actions. (MIKE GRIGGS) Scribe Documentation - Scribe Written by Scribe:: Derik Burden, 06/03/2018 1604 acting as scribe for :: Daria
== END 2018-06-03 16:28 | disposition home or self-care (01) ==
LOC: ER 14:15
DX: R42 Dizziness and giddiness (principal); F41.9 Anxiety disorder, unspecified; S51.811A Laceration without foreign body of right forearm, initial encounter; X58.XXXA Exposure to other specified factors, initial encounter; E53.8 Deficiency of other specified B group vitamins; Z88.0 Allergy status to penicillin; Z88.6 Allergy status to analgesic agent; Z88.2 Allergy status to sulfonamides; Z88.3 Allergy status to other anti-infective agents; I10 Essential (primary) hypertension
CPT/HCPCS: 99284; 96372; J3420

== ENCOUNTER 2018-06-21 21:28 | Emergency (ER) | payer MEDICARE, MEDICAID ==
--- NOTE | 2018-06-21 23:13 | ER Document Report ---
ED General - General Mode of Arrival: Ambulatory Information source: Patient TRAVEL OUTSIDE OF THE [place] IN LAST 30 DAYS: No COUNTRY TRAVELED TO/FROM: [facility] Chief Complaint: Other Stated Complaint: MOUTH DRYNESS, ATE TOO MUCH SALT Time Seen by Provider: 06/21/18 23:00 Notes: Patient is a 67-year-old female with a history of diverticulitis who frequents this emergency department presents to the emergency department today complaining of multiple symptoms. Patient states that she ate spaghetti and meatballs today which had too much salt in it and caused her to bust a blood vessel in her left leg and some ankle swelling. She also complains of a headache, her eyes burning and dry mouth. Patient also states that she needs her vitamin B12 shots administered today due to not being able to see Dr. Cortez. ([place],[facility]) - Related Data Allergies/Adverse Reactions: aspirin Allergy (Severe, Verified 06/03/18 14:16) Anaphylaxis Penicillins Allergy (Severe, Verified 06/03/18 14:16) Anaphylaxis acetaminophen [From Vicodin] Allergy (Intermediate, Verified 06/03/18 14:16) Anaphylaxis hydrocodone [From Vicodin] Allergy (Intermediate, Verified 06/03/18 14:16) Anaphylaxis Sulfa (Sulfonamide Antibiotics) Allergy (Intermediate, Verified 06/03/18 14:16) iching, nausea codeine Allergy (Mild, Verified 06/03/18 14:16) Diarrhea meperidine HCl [From Demerol] Allergy (Mild, Verified 06/03/18 14:16) heart palpitations ciprofloxacin oral Allergy (Mild, Uncoded 06/03/18 14:16) itching; nausea Past Medical History - General Information source: Patient - Social History Smoking Status: Never Smoker Cigarette use (# per day): No Chew tobacco use (# tins/day): No Smoking Education Provided: No Frequency of alcohol use: None Family History: Arthritis, CAD, CVA, DM, Hyperlipidemia, Hypertension, Malignancy, Thyroid Disfunction - Past Medical History Cardiac Medical History: Reports: Hx Hypertension Pulmonary Medical History: Reports: Hx Asthma, Hx Bronchitis, Hx Pneumonia GI Medical History: Reports: Hx Crohn's Disease, Hx Diverticulitis, Hx Gastroesophageal Reflux Disease, Hx Hiatal Hernia, Hx Irritable Bowel Musculoskeletal Medical History: Reports Hx Arthritis, Reports Hx Musculoskeletal Deformity, Reports Hx Musculoskeletal Trauma Psychiatric Medical History: Reports: Hx Anxiety, Hx Depression Past Surgical History: Reports: Hx Abdominal Surgery - small intestine removal, Hx Appendectomy, Hx Bowel Surgery - small intestine, Hx Breast Surgery - biopsy , Hx Hysterectomy, Hx Neurologic Surgery - brain tumor removed, Hx Tonsillectomy - Immunizations Immunizations up to date: Yes Hx Diphtheria, Pertussis, Tetanus Vaccination: Yes - 09/2010 Hx Pneumococcal Vaccination: 08/24/10 Review of Systems - Review of Systems Constitutional: See HPI EENT: See HPI Cardiovascular: No symptoms reported Respiratory: No symptoms reported Gastrointestinal: See HPI, Abdominal pain Genitourinary: No symptoms reported Female Genitourinary: No symptoms reported Musculoskeletal: See HPI Skin: See HPI Hematologic/Lymphatic: No symptoms reported Neurological/Psychological: No symptoms reported -: Yes All other systems reviewed and negative Physical Exam - Vital signs Vitals: Temp Pulse Resp BP Pulse Ox 99.9 F 86 16 125/67 100 06/21/18 21:53 06/21/18 21:53 06/21/18 21:53 06/21/18 21:53 06/21/18 21:53 - Notes Notes: GENERAL: Alert, interacts well. . No acute distress. HEAD: Normocephalic, atraumatic. EYES: Pupils equal, round, and reactive to light. Extraocular movements intact. ENT: Oral mucosa moist, tongue midline. NECK: Full range of motion. Supple. Trachea midline. LUNGS: Clear to auscultation bilaterally, no wheezes, rales, or rhonchi. No respiratory distress. HEART: Regular rate and rhythm. No murmurs, gallops, or rubs. ABDOMEN: Soft, non-tender. Non-distended. Bowel sounds present in all 4 quadrants. EXTREMITIES: Moves all 4 extremities spontaneously. No pitting edema. NEUROLOGICAL: Alert and oriented x3. Normal speech. PSYCH: Normal affect, normal mood. SKIN: Warm, dry, normal turgor. 2 x 4 cm contusion to the medial aspect to the lower part of the left lower extremity. (MATTHEW CHILDS) Course - Re-evaluation Re-evalutation: 06/21/18 23:41 Patient is concerned about small bruise on inner aspect proximal left lower extremity. She also is pointing to bilateral lower legs where it appears she has varicose veins around the heels of her feet. She then proceeds to ask to have a vitamin B12 shot administration. She normally has this done at her primary care physician's office but states she has not gone this week. It appears that she likely bruised herself without knowing it but there is no concerning findings on physical exam. In regards to her vitamin B12 shot I explained that she needs to follow-up with her primary care physician to have that administered. The patient is well-appearing with benign physical exam. She has normal vitals although her temperature was 99.9. I advised she take her temperature at home and if she were to develop fever of greater than 101F for over an hour she should be re-evaluated by a her PCP. 06/22/18 00:00 06/22/18 01:35 At discharge patient requested a Tylenol as well as Maalox that her stomach felt a little upset and she had a mild headache. She states the symptoms are frequent and chronic. These medications were provided before discharge. (GORDON FERRELL) - Vital Signs Vital signs: Temp Pulse Resp BP Pulse Ox 98.5 F 82 16 131/79 H 100 06/22/18 02:27 06/22/18 02:27 06/22/18 02:27 06/22/18 02:27 06/22/18 02:27 Discharge - Discharge Clinical Impression: Contusion Qualifiers: Encounter type: initial encounter Contusion area: lower leg Laterality: left Qualified Code(s): S80.12XA - Contusion of left lower leg, initial encounter Condition: Good Disposition: HOME, SELF-CARE Referrals: ARACELI CORTEZ MD [Primary Care Provider] - Follow up as needed (To have your B12 shot administered.) Scribe Attestation: 06/22/18 17:19 I personally performed the services described in the documentation, reviewed and edited the documentation which was dictated to the scribe in my presence, and it accurately records my words and actions. (GORDON FERRELL) Gurwinderibe Documentation - Scribe Written by Derik:: Derik Porter, 06/21/2018 23:13 acting as scribe for :: Brando
[2018-06-22] MEDS ORDERED: ACETAMINOPHEN 325 MG TABLET PO ONE (01:35)
[2018-06-22] MEDS ORDERED: MAG HYDROX/AL HYDROX/SIMETH SUSP 30 ML UDCUP PO ONE (01:35)
[2018-06-22 02:28] VITALS: BP 131/79
== END 2018-06-22 02:30 | disposition home or self-care (01) ==
LOC: ER 21:28
DX: S80.12XA Contusion of left lower leg, initial encounter (principal); X58.XXXA Exposure to other specified factors, initial encounter; R68.2 Dry mouth, unspecified; R51 Headache; H57.89 Other specified disorders of eye and adnexa; R10.9 Unspecified abdominal pain; I10 Essential (primary) hypertension; J45.909 Unspecified asthma, uncomplicated; Z87.892 Personal history of anaphylaxis; Z88.6 Allergy status to analgesic agent; Z88.0 Allergy status to penicillin; Z88.5 Allergy status to narcotic agent; Z88.2 Allergy status to sulfonamides; Z88.1 Allergy status to other antibiotic agents
CPT/HCPCS: 99284; A9270

== ENCOUNTER 2018-08-03 20:27 | Emergency (ER) | payer MEDICARE, MEDICAID ==
--- NOTE | 2018-08-03 23:56 | ER Document Report ---
ED Extremity Problem, Upper - General Mode of Arrival: Ambulatory Information source: Patient TRAVEL OUTSIDE OF THE [place] IN LAST 30 DAYS: No COUNTRY TRAVELED TO/FROM: [place] <YAMILET MANZANARES - Last Filed: 08/04/18 02:42> <PARAS SAEZ - Last Filed: 08/04/18 04:44> - General Chief Complaint: Arm Pain Stated Complaint: FALL/LEFT ARM PAIN Time Seen by Provider: 08/03/18 23:48 Notes: 67-year-old female who presents to the emergency department today after a mechanical fall that occurred prior to arrival. Patient states she slipped on slick concrete and hit her left upper extremity on a dresser. Patient also has bruising to her right hand. Patient mentions that she needs to get her vitamin B12 shot as well. (YAMILET MANZANARES) - Related Data Allergies/Adverse Reactions: aspirin Allergy (Severe, Verified 06/03/18 14:16) Anaphylaxis Penicillins Allergy (Severe, Verified 06/03/18 14:16) Anaphylaxis acetaminophen [From Vicodin] Allergy (Intermediate, Verified 06/03/18 14:16) Anaphylaxis hydrocodone [From Vicodin] Allergy (Intermediate, Verified 06/03/18 14:16) Anaphylaxis Sulfa (Sulfonamide Antibiotics) Allergy (Intermediate, Verified 06/03/18 14:16) iching, nausea codeine Allergy (Mild, Verified 06/03/18 14:16) Diarrhea meperidine HCl [From Demerol] Allergy (Mild, Verified 06/03/18 14:16) heart palpitations ciprofloxacin oral Allergy (Mild, Uncoded 06/03/18 14:16) itching; nausea Past Medical History - General Information source: Patient - Social History Smoking Status: Never Smoker Cigarette use (# per day): No Frequency of alcohol use: None Drug Abuse: None Family History: Arthritis, CAD, CVA, DM, Hyperlipidemia, Hypertension, Malignancy, Thyroid Disfunction - Past Medical History Cardiac Medical History: Reports: Hx Hypertension Pulmonary Medical History: Reports: Hx Asthma, Hx Bronchitis, Hx Pneumonia GI Medical History: Reports: Hx Crohn's Disease, Hx Diverticulitis, Hx Gastroesophageal Reflux Disease, Hx Hiatal Hernia, Hx Irritable Bowel Musculoskeletal Medical History: Reports Hx Arthritis, Reports Hx Musculoskeletal Deformity, Reports Hx Musculoskeletal Trauma Psychiatric Medical History: Reports: Hx Anxiety, Hx Depression Past Surgical History: Reports: Hx Abdominal Surgery - small intestine removal, Hx Appendectomy, Hx Bowel Surgery - small intestine, Hx Breast Surgery - biopsy , Hx Hysterectomy, Hx Neurologic Surgery - brain tumor removed, Hx Tonsillectomy - Immunizations Immunizations up to date: Yes Hx Diphtheria, Pertussis, Tetanus Vaccination: Yes - 09/2010 Hx Pneumococcal Vaccination: 08/24/10 <YAMILET MANZANARES - Last Filed: 08/04/18 02:42> Review of Systems - Review of Systems Constitutional: No symptoms reported EENT: No symptoms reported Cardiovascular: No symptoms reported Respiratory: No symptoms reported Gastrointestinal: No symptoms reported Genitourinary: No symptoms reported Female Genitourinary: No symptoms reported Musculoskeletal: See HPI, Other - left arm pain Skin: See HPI, Other - ecchymosis of right hand Hematologic/Lymphatic: No symptoms reported Neurological/Psychological: No symptoms reported -: Yes All other systems reviewed and negative <YAMILET MANZANARES - Last Filed: 08/04/18 02:42> Physical Exam <YAMILET MANZANARES - Last Filed: 08/04/18 02:42> <PARAS SAEZ - Last Filed: 08/04/18 04:44> - Vital signs Vitals: Temp Pulse Resp BP Pulse Ox 98.3 F 80 18 125/79 98 08/03/18 21:14 08/03/18 21:14 08/03/18 21:14 08/03/18 21:14 08/03/18 21:14 - Notes Notes: PHYSICAL EXAM GENERAL: Alert, interacts well. No acute distress. HEAD: Normocephalic, atraumatic. EYES: Pupils equal, round, and reactive to light. Extraocular movements intact. ENT: Oral mucosa moist, tongue midline. NECK: Full range of motion. Supple. Trachea midline. LUNGS: No respiratory distress. EXTREMITIES: Ecchymosis between the MCP of the 4th and 5th digits on the right. Pain with internal rotation, external rotation, and abduction of the left shoulder. Left forearm ecchymosis. Left ulnar tenderness with palpation. Slight swelling over the left wrist. No obvious deformity of the proximal forearm. NEUROLOGICAL: Alert and oriented x3. Normal speech. PSYCH: Normal affect, normal mood. (YAMILET MANZANARES) Course <YAMILET MANZANARES - Last Filed: 08/04/18 02:42> <PARAS SAEZ - Last Filed: 08/04/18 04:44> - Re-evaluation Re-evalutation: 08/04/18 02:34 X-rays of the entire left upper extremity end of the right hand reveal no acute process, no fracture dislocation. Physical examination that revealed swelling of the left wrist is consistent with a sprain. Patient will be placed in a cockup splint and a sling and discharged home. Patient also requests that we give her her B12 shot here, that we give her fluids despite a lack of vomiting or diarrhea and that we also give her morphine for her pain from having "sprung her wrist" discussed with patient that we do not use narcotics for sprains and that we would use anti- inflammatories. We also will not to be giving her B12, this is something she can use as an outpatient. Patient has no signs of dehydration, has not been having vomiting or diarrhea, there is no indication for IV fluids at this time. Patient is given a splint and discharged to home. Requested follow-up with Dr. Lin. (PARAS SAEZ) - Vital Signs Vital signs: Temp Pulse Resp BP Pulse Ox 98.4 F 84 20 161/95 H 100 08/04/18 02:03 08/04/18 02:03 08/04/18 02:03 08/04/18 02:03 08/04/18 02:03 Procedures - Immobilization Left Arm Pre-Proc Neuro Vasc Exam: Normal Immobilizer type: Sling Performed by: DEONNA SOLIS Post-Proc Neuro Vasc Exam: Normal Alignment checked and good: Yes Left Wrist Pre-Proc Neuro Vasc Exam: Normal Immobilizer type: Cock-up Performed by: RN, PCT Post-Proc Neuro Vasc Exam: Normal Alignment checked and good: Yes <PARAS SAEZ - Last Filed: 08/04/18 04:44> Discharge <YAMILET MANZANARES - Last Filed: 08/04/18 02:42> <PARAS SAEZ - Last Filed: 08/04/18 04:44> - Discharge Clinical Impression: Left wrist sprain Qualifiers: Encounter type: initial encounter Qualified Code(s): S63.502A - Unspecified sprain of left wrist, initial encounter Condition: Stable Disposition: HOME, SELF-CARE Additional Instructions: Sprain Your injury is a sprain. A sprain results from stretching or tearing of the ligaments, usually from a twisting injury. The ligaments will require time and protection in order to heal properly. Many sprains are quite disabling and should be taken seriously. The usual initial treatment of sprains is cold packs, elevation, and rest of the injured area. Your physician has assessed the seriousness of your ligament injury, and has outlined a treatment plan. Understand that this treatment may change, depending on how you progress. If a re-examination was recommended, it is important that you follow up as instructed. Call the doctor any time if there is severe pain, numbness, or loss of function in the injured area. Splint Precautions A splint has been placed. This will protect the area while healing begins. Your problem does NOT normally require a cast. It MUST, however, be held still! Keep the splint on ALL THE TIME until instructed to remove it by the doctor. As you begin to use the area, be careful. You shouldn't do anything which causes discomfort -- you may disturb the injury even with the splint in place. After the initial period of rest and elevation, if splint does not prevent pain when you move, come back. You may require placement of a different splint , or a cast. If there is unexpected severe pain, or numbness, discoloration, or swelling beyond the splint, you should return at once. If you feel that the splint has broken or become loose, come back. We gave you KETORALAC for pain and swelling. This will last for about 12 hours. In 12 hours you may start taking Aleve [id number] 1-2 tablets every 12 hours. You may also take acetaminophen 500 mg every 4-6 hours as needed for pain. Referrals: ARACELI CORTEZ MD [Primary Care Provider] - Follow up as needed ABDIRAHMAN LIN MD [ACTIVE STAFF] - Follow up as needed Derik Attestation: 08/04/18 04:44 I personally performed the services described in the documentation, reviewed and edited the documentation which was dictated to the scribe in my presence, and it accurately records my words and actions. (PARAS SAEZ) Scribe Documentation - Scribe Written by Derik:: Derik Burden, 08/04/2018 [id number] acting as scribe for :: Jing <YAMILET MANZANARES - Last Filed: 08/04/18 02:42>
--- NOTE | 2018-08-04 01:20 | RADIOLOGY REPORT (SQ) ---
EXAM DESCRIPTION: XR HAND 3 OR MORE VIEWS COMPLETED DATE/TME: 08/03/2018 23:55 CLINICAL HISTORY: 67 years, Female, fall, landed on left hand and arm Findings: Bones are osteopenic. Bony alignment is anatomic. No evidence for acute fracture. Soft tissues are unremarkable. IMPRESSION: No acute fracture.
--- NOTE | 2018-08-04 01:29 | RADIOLOGY REPORT (SQ) ---
EXAM DESCRIPTION: XR CLAVICLE COMPLETED DATE/TME: 08/03/2018 23:55 CLINICAL HISTORY: 67 years, Female, fall, landed on left hand and arm Findings: Bony alignment is anatomic. No fracture or dislocation. Acromioclavicular joint is in place. Glenohumeral joint is intact. No lytic or blastic lesions. IMPRESSION: No evidence for acute fracture.
--- NOTE | 2018-08-04 01:30 | RADIOLOGY REPORT (SQ) ---
EXAM DESCRIPTION: XR FOREARM 2 VIEWS COMPLETED DATE/TME: 08/03/2018 23:55 CLINICAL HISTORY: 67 years, Female, fall, landed on left hand and arm Findings: Bony alignment is anatomic. No fracture or dislocation. Soft tissues are unremarkable. IMPRESSION: No fracture.
--- NOTE | 2018-08-04 01:31 | RADIOLOGY REPORT (SQ) ---
EXAM DESCRIPTION: XR HUMERUS COMPLETED DATE/TME: 08/03/2018 23:55 CLINICAL HISTORY: 67 years, Female, fall, landed on left hand and arm Findings: Bony alignment is anatomic. No fracture or dislocation. Soft tissues are unremarkable. IMPRESSION: No fracture.
--- NOTE | 2018-08-04 01:31 | RADIOLOGY REPORT (SQ) ---
EXAM DESCRIPTION: XR HAND 3 OR MORE VIEWS COMPLETED DATE/TME: 08/03/2018 23:55 CLINICAL HISTORY: 67 years, Female, fall, right 4th and 5th digit pain Findings: Bony alignment is anatomic. No fracture or dislocation. Bones are osteopenic. Soft tissues are unremarkable. IMPRESSION: No fracture.
--- NOTE | 2018-08-04 01:32 | RADIOLOGY REPORT (SQ) ---
EXAM DESCRIPTION: XR SHOULDER 2 OR MORE VIEWS COMPLETED DATE/TME: 08/03/2018 23:55 CLINICAL HISTORY: 67 years, Female, fall, landed on left hand and arm Findings: Bony alignment is anatomic. No fracture or dislocation. Acromioclavicular joint is within normal limits. Soft tissues are unremarkable. IMPRESSION: No fracture.
[2018-08-04 02:05] VITALS: BP 161/95
[2018-08-04] MEDS ORDERED: KETOROLAC TROMETHAMINE 60 MG/2 ML SDV IM ONE (02:13)
[2018-08-04] MEDS ORDERED: ACETAMINOPHEN 325 MG TABLET PO ONE (02:55)
== END 2018-08-04 04:00 | disposition home or self-care (01) ==
LOC: ER 20:27
DX: S63.502A Unspecified sprain of left wrist, initial encounter (principal); S60.221A Contusion of right hand, initial encounter; M25.512 Pain in left shoulder; W01.190A Fall on same level from slipping, tripping and stumbling with subsequent striking against furniture, initial encounter; I10 Essential (primary) hypertension; J45.909 Unspecified asthma, uncomplicated; Z88.1 Allergy status to other antibiotic agents; Z88.2 Allergy status to sulfonamides; Z87.892 Personal history of anaphylaxis; Z88.6 Allergy status to analgesic agent; Z88.0 Allergy status to penicillin; Z88.5 Allergy status to narcotic agent
CPT/HCPCS: 99284; 96372; 73000; 73090; 73130 ×2; 73060; 73030; L3908; A9270; J1885

== ENCOUNTER 2018-08-17 06:57 | Inpatient (IN) | payer MEDICARE, MEDICAID ==
[2018-08-17] MEDS ORDERED: NORMAL SALINE 1000 ML 1,000 ML IV ONE ×2 (07:22→09:24)
[2018-08-17] MEDS ORDERED: ACETAMINOPHEN 325 MG TABLET PO ONE (07:23)
[2018-08-17] MEDS ORDERED: DICYCLOMINE HCL 20 MG TABLET PO ONE (07:23)
[2018-08-17] MEDS ORDERED: ONDANSETRON HCL INJ/PF 4 MG/2 ML SDV IV ONE (07:23)
--- NOTE | 2018-08-17 07:52 | ER Document Report ---
ED General - General Chief Complaint: Abdominal Pain Stated Complaint: LEG PAIN Time Seen by Provider: 08/17/18 07:07 Mode of Arrival: Medic Information source: Patient Notes: Patient presents complaining of pain to a left wrist fracture that occurred on 08/03/2018. Patient was not prescribed any pain medication per orthopedic surgeon. Patient does have a cast on her left wrist and forearm. Patient denies any new injury to the area. Patient also complains of constipation for the past 4 or 5 days. Patient states she did have a bowel movement this morning but it was very hard and small. Patient has seen her primary doctor yesterday but states that she was only advised to increase her oral fluid intake. Patient is concerned that she is dehydrated and that her bowel is dehydrated and that she needs IV fluids, Bentyl as well as morphine for her wrist pain. Patient denies taking any [id number] medications to manage her pain symptoms at this time. Patient denies any vomiting. Patient would also like to be evaluated for possible UTI. TRAVEL OUTSIDE OF THE [place] IN LAST 30 DAYS: No COUNTRY TRAVELED TO/FROM: [facility] Onset/Duration: Persistent Quality of pain: Achy Pain Level: 4 Associated symptoms: Nausea, Other - Left wrist pain, constipation, dysuria. denies: Nonproductive cough, Productive cough, Diarrhea, Headache, Vomiting Exacerbated by: Denies Relieved by: Denies Similar symptoms previously: Yes Recently seen / treated by doctor: Yes - Related Data Allergies/Adverse Reactions: aspirin Allergy (Severe, Verified 06/03/18 14:16) Anaphylaxis Penicillins Allergy (Severe, Verified 06/03/18 14:16) Anaphylaxis acetaminophen [From Vicodin] Allergy (Intermediate, Verified 06/03/18 14:16) Anaphylaxis hydrocodone [From Vicodin] Allergy (Intermediate, Verified 06/03/18 14:16) Anaphylaxis Sulfa (Sulfonamide Antibiotics) Allergy (Intermediate, Verified 06/03/18 14:16) iching, nausea codeine Allergy (Mild, Verified 06/03/18 14:16) Diarrhea meperidine HCl [From Demerol] Allergy (Mild, Verified 06/03/18 14:16) heart palpitations ciprofloxacin oral Allergy (Mild, Uncoded 06/03/18 14:16) itching; nausea Past Medical History - General Information source: Patient - Social History Smoking Status: Never Smoker Chew tobacco use (# tins/day): No Frequency of alcohol use: None Drug Abuse: None Lives with: Alone Family History: Arthritis, CAD, CVA, DM, Hyperlipidemia, Hypertension, Malignancy, Thyroid Disfunction Patient has suicidal ideation: No Patient has homicidal ideation: No - Past Medical History Cardiac Medical History: Reports: Hx Hypertension Denies: Hx Congestive Heart Failure, Hx Heart Attack Pulmonary Medical History: Reports: Hx Asthma, Hx Bronchitis, Hx Pneumonia Denies: Hx COPD, Hx Tuberculosis Neurological Medical History: Denies: Hx Cerebrovascular Accident, Hx Seizures Renal/ Medical History: Denies: Hx End Stage Renal Disease, Hx Kidney Stones, Hx Peritoneal Dialysis GI Medical History: Reports: Hx Crohn's Disease, Hx Diverticulitis, Hx Gastroesophageal Reflux Disease, Hx Hiatal Hernia, Hx Irritable Bowel. Denies: Hx Cirrhosis, Hx Hepatitis, Hx Ulcer Musculoskeletal Medical History: Reports Hx Arthritis, Denies Hx Multiple Sclerosis, Reports Hx Musculoskeletal Deformity, Reports Hx Musculoskeletal Trauma Psychiatric Medical History: Reports: Hx Anxiety, Hx Depression Denies: Hx Bipolar Disorder, Hx Schizophrenia Infectious Medical History: Denies: Hx Hepatitis Past Surgical History: Reports: Hx Abdominal Surgery - small intestine removal, Hx Appendectomy, Hx Bowel Surgery - small intestine, Hx Breast Surgery - biopsy, Hx Hysterectomy, Hx Neurologic Surgery - brain tumor removed, Hx Tonsillectomy - Immunizations Immunizations up to date: Yes Hx Diphtheria, Pertussis, Tetanus Vaccination: Yes - 09/2010 Hx Pneumococcal Vaccination: 08/24/10 Review of Systems - Review of Systems Constitutional: No symptoms reported EENT: No symptoms reported Cardiovascular: No symptoms reported. denies: Chest pain Respiratory: No symptoms reported. denies: Cough, Short of breath Gastrointestinal: Abdominal pain, Nausea, Constipation, Poor fluid intake. denies: Diarrhea, Vomiting, Poor appetite Genitourinary: Dysuria Female Genitourinary: No symptoms reported Musculoskeletal: Joint pain - Left wrist pain Skin: No symptoms reported Hematologic/Lymphatic: No symptoms reported Neurological/Psychological: No symptoms reported Physical Exam - Vital signs Vitals: Temp Pulse Resp BP Pulse Ox 100.6 F H 94 18 140/91 H 100 08/17/18 07:04 08/17/18 07:04 08/17/18 07:04 08/17/18 07:04 08/17/18 07:04 - General General appearance: Appears well, Alert In distress: None - HEENT Head: Normocephalic, Atraumatic Eyes: Normal Conjunctiva: Normal Nasal: Normal Mouth/Lips: Normal Mucous membranes: Normal Pharynx: Normal Neck: Normal, Supple. No: Lymphadenopathy - Respiratory Respiratory status: No respiratory distress Chest status: Nontender Breath sounds: Normal. No: Rales, Rhonchi, Stridor, Wheezing Chest palpation: Normal - Cardiovascular Rhythm: Regular Heart sounds: S1 appreciated, S2 appreciated Murmur: No - Abdominal Inspection: Normal Distension: No distension Bowel sounds: Normal Tenderness: Tender - Suprapubic, lower pelvic, periumbilical Organomegaly: No organomegaly - Back Back: Normal, Nontender - Extremities General upper extremity: Tender - Tenderness to left wrist, Other - Cast to the left wrist and forearm extending to the distal third of left upper arm General lower extremity: Normal inspection, Normal ROM Wrist: Tender - Tenderness to left wrist, overlying cast in place Hand: Other - Normal skin color and temperature to fingers of left hand, normal cap refill - Neurological Neuro grossly intact: Yes Cognition: Normal Ji Coma Scale Eye Opening: Spontaneous [place] Coma Scale Verbal: Oriented [place] Coma Scale Motor: Obeys Commands Ji Coma Scale Total: 15 - Psychological Associated symptoms: Anxious - Skin Skin Temperature: Warm Skin Moisture: Dry Skin Color: Normal Course - Re-evaluation Re-evalutation: 08/17/18 14:[address] Batres regarding patient presentation, agrees to accept patient for medical floor admission. - Vital Signs Vital signs: Temp Pulse Resp BP Pulse Ox 99.3 F 79 19 119/62 100 08/17/18 18:18 08/17/18 18:18 08/17/18 18:18 08/17/18 18:18 08/17/18 18:18 - Laboratory Result Diagrams: 08/17/18 08:11 08/17/18 08:11 Laboratory results interpreted by me: 08/17/18 08/17/18 08/17/18 08:11 08:11 14:00 WBC 16.5 H MCV 98 H RDW 14.4 H Seg Neutrophils % 81.4 H Lymphocytes % 10.6 L Absolute Neutrophils 13.4 H Carbon Dioxide 34 H Lactic Acid 0.6 L AST 66 H Labs- Entire Visit 08/17/18 08/17/18 08/17/18 08:00 08:11 08:11 WBC 16.5 H RBC 4.27 Hgb 14.1 Hct 41.8 MCV 98 H MCH 33.1 MCHC 33.8 RDW 14.4 H Plt Count 448 Seg Neutrophils % 81.4 H Lymphocytes % 10.6 L Monocytes % 6.7 Eosinophils % 0.9 Basophils % 0.4 Absolute Neutrophils 13.4 H Absolute Lymphocytes 1.7 Absolute Monocytes 1.1 Absolute Eosinophils 0.2 Absolute Basophils 0.1 PT 12.8 INR 0.92 VBG pH VBG pCO2 VBG HCO3 VBG Base Excess Sodium 141.3 Potassium 4.1 Chloride 100 Carbon Dioxide 34 H Anion Gap 7 BUN 20 Creatinine 0.63 Est GFR ( Amer) > 60 Est GFR (Non-Af Amer) > 60 Glucose 95 Lactic Acid Calcium 9.4 Total Bilirubin 0.6 Direct Bilirubin 0.2 Neonat Total Bilirubin Not Reportable Neonat Direct Bilirubin Not Reportable Neonat Indirect Bili Not Reportable AST 66 H ALT 33 Alkaline Phosphatase 107 Total Protein 7.9 Albumin 4.5 Urine Color Urine Appearance Urine pH Ur Specific [place] Urine Protein Urine Glucose (UA) Urine Ketones Urine Blood Urine Nitrite Urine Bilirubin Urine Urobilinogen Ur Leukocyte Esterase Urine WBC (Auto) Urine Bacteria (Auto) Squamous Epi Cells Auto Urine Mucus (Auto) Urine Ascorbic Acid Influenza A (Rapid) Influenza B (Rapid) 08/17/18 08/17/18 08/17/18 08:11 09:50 09:50 WBC RBC Hgb Hct MCV MCH MCHC RDW Plt Count Seg Neutrophils % Lymphocytes % Monocytes % Eosinophils % Basophils % Absolute Neutrophils Absolute Lymphocytes Absolute Monocytes Absolute Eosinophils Absolute Basophils PT INR VBG pH 7.34 VBG pCO2 55.2 VBG HCO3 29.2 VBG Base Excess 2.5 Sodium Potassium Chloride Carbon Dioxide Anion Gap BUN Creatinine Est GFR ( Amer) Est GFR (Non-Af Amer) Glucose Lactic Acid 2.1 Calcium Total Bilirubin Direct Bilirubin Neonat Total Bilirubin Neonat Direct Bilirubin Neonat Indirect Bili AST ALT Alkaline Phosphatase Total Protein Albumin Urine Color COLORLESS Urine Appearance CLEAR Urine pH 8.0 Ur Specific [place] 1.003 Urine Protein NEGATIVE Urine Glucose (UA) NEGATIVE Urine Ketones NEGATIVE Urine Blood NEGATIVE Urine Nitrite NEGATIVE Urine Bilirubin NEGATIVE Urine Urobilinogen NEGATIVE Ur Leukocyte Esterase NEGATIVE Urine WBC (Auto) 0 Urine Bacteria (Auto) 3+ Squamous Epi Cells Auto 1 Urine Mucus (Auto) RARE Urine Ascorbic Acid NEGATIVE Influenza A (Rapid) Influenza B (Rapid) 08/17/18 08/17/18 10:50 14:00 WBC RBC Hgb Hct MCV MCH MCHC RDW Plt Count Seg Neutrophils % Lymphocytes % Monocytes % Eosinophils % Basophils % Absolute Neutrophils Absolute Lymphocytes Absolute Monocytes Absolute Eosinophils Absolute Basophils PT INR VBG pH VBG pCO2 VBG HCO3 VBG Base Excess Sodium Potassium Chloride Carbon Dioxide Anion Gap BUN Creatinine Est GFR ( Amer) Est GFR (Non-Af Amer) Glucose Lactic Acid 0.6 L Calcium Total Bilirubin Direct Bilirubin Neonat Total Bilirubin Neonat Direct Bilirubin Neonat Indirect Bili AST ALT Alkaline Phosphatase Total Protein Albumin Urine Color Urine Appearance Urine pH Ur Specific [place] Urine Protein Urine Glucose (UA) Urine Ketones Urine Blood Urine Nitrite Urine Bilirubin Urine Urobilinogen Ur Leukocyte Esterase Urine WBC (Auto) Urine Bacteria (Auto) Squamous Epi Cells Auto Urine Mucus (Auto) Urine Ascorbic Acid Influenza A (Rapid) NEGATIVE Influenza B (Rapid) NEGATIVE - Diagnostic Test Radiology reviewed: Reports reviewed Discharge - Discharge Clinical Impression: Diverticulitis Qualifiers: Diverticulitis site: unspecified part of intestinal tract Diverticulitis bleeding: without bleeding Diverticulitis complication: without perforation or abscess Qualified Code(s): K57.92 - Diverticulitis of intestine, part unspecified, without perforation or abscess without bleeding Abdominal pain Qualifiers: Abdominal location: unspecified location Qualified Code(s): R10.9 - Unspecified abdominal pain Fever Qualifiers: Fever type: unspecified Qualified Code(s): R50.9 - Fever, unspecified Condition: Stable Disposition: ADMITTED INPATIENT Admitting Provider: Medardo Unit Admitted: Medical Floor
[2018-08-17] MEDS ORDERED: LORAZEPAM INJ 2 MG/1 ML VIAL IV ONE (08:04)
[2018-08-17 08:17] LABS: ABSOLUTE BASOPHILS # (AUTO) 0.1 10^3/uL (0.0-0.2); ABSOLUTE EOSINOPHILS # (AUTO) 0.2 10^3/uL (0.0-0.6); ABSOLUTE LYMPHOCYTES (AUTO) 1.7 10^3/uL (0.5-4.7); ABSOLUTE MONOCYTES (AUTO) 1.1 10^3/uL (0.1-1.4); ABSOLUTE NEUT (AUTO) 13.4 10^3/uL (1.7-8.2); BASOPHILS % (AUTO) 0.4 % (0-2); EOSINOPHILS % (AUTO) 0.9 % (0-6); HEMATOCRIT 41.8 % (36.0-47.0); HEMOGLOBIN 14.1 g/dL (12.0-15.5); LYMPHOCYTES % (AUTO) 10.6 % (13-45); MEAN CORPUSCULAR HEMOGLOBIN 33.1 pg (27.0-33.4); MEAN CORPUSCULAR HGB CONC 33.8 g/dL (32.0-36.0); MEAN CORPUSCULAR VOLUME 98 fl (80-97); MONOCYTES % (AUTO) 6.7 % (3-13); PLATELET COUNT 448 10^3/uL (150-450); RED BLOOD COUNT 4.27 10^6/uL (3.72-5.28); RED CELL DISTRIBUTION WIDTH 14.4 % (11.5-14.0); SEGMENTED NEUTROPHILS % (AUTO) 81.4 % (42-78); TOTAL CELLS COUNTED % (AUTO) 100 %; WHITE BLOOD COUNT 16.5 10^3/uL (4.0-10.5)
[2018-08-17 08:23] LABS: APPEARANCE,URINE CLEAR; BILIRUBIN,URINE NEGATIVE (NEGATIVE); COLOR,URINE COLORLESS; GLUCOSE, URINE NEGATIVE (NEGATIVE); KETONES,URINE NEGATIVE (NEGATIVE); LEUKOCYTE ESTERASE,URINE NEGATIVE (NEGATIVE); NITRITE,URINE NEGATIVE (NEGATIVE); PROTEIN,URINE NEGATIVE (NEGATIVE); URINE SPECIFIC GRAVITY 1.003; UROBILINOGEN,URINE NEGATIVE mg/dL (<2.0)
[2018-08-17 09:24] LABS: ALANINE AMINOTRANSFERASE 33 U/L (9-52); ALBUMIN 4.5 g/dL (3.5-5.0); ALKALINE PHOSPHATASE 107 U/L (38-126); ANION GAP 7 (5-19); ASPARTATE AMINO TRANSFERASE 66 U/L (14-36); BILIRUBIN,DIRECT 0.2 mg/dL (0.0-0.4); BILIRUBIN,TOTAL 0.6 mg/dL (0.2-1.3); BLOOD UREA NITROGEN 20 mg/dL (7-20); CALCIUM 9.4 mg/dL (8.4-10.2); CARBON DIOXIDE 34 mmol/L (22-30); CHLORIDE 100 mmol/L (98-107); GLUCOSE 95 mg/dL (75-110); POTASSIUM 4.1 mmol/L (3.6-5.0); SODIUM 141.3 mmol/L (137-145); TOTAL PROTEIN 7.9 g/dL (6.3-8.2)
--- NOTE | 2018-08-17 09:44 | RADIOLOGY REPORT (SQ) ---
EXAM DESCRIPTION: ACUTE ABDOMEN SERIES COMPLETED DATE/TIME: 08/17/2018 9:30 am REASON FOR STUDY: abd pain, ?constipation COMPARISON: 12/14/2017 NUMBER OF VIEWS: Three views. TECHNIQUE: Frontal chest, supine abdomen and upright/decubitus abdomen radiographic images acquired. LIMITATIONS: None. FINDINGS: CHEST: Lungs clear of infiltrates. FREE AIR: None. No abnormal gas collections. BOWEL GAS PATTERN: Abundant gas and fecal material from the cecum to the rectum. No obstruction. CALCIFICATIONS: No suspicious calcifications. HARDWARE: Clips right lower quadrant. SOFT TISSUES: No gross mass or suggestion of organomegaly. BONES: No acute fracture. No worrisome bone lesions. OTHER: No other significant finding. IMPRESSION: Mild fecal retention. TECHNICAL DOCUMENTATION: JOB ID: [id number] [employer]- All Rights Reserved Reading location - IP/workstation name: [email or web address]
[2018-08-17 10:20] LABS: VENOUS BLOOD BASE EXCESS 2.5 mmol/L; VENOUS BLOOD HCO3 29.2 mmol/L (20-32); VENOUS BLOOD PCO2 55.2 mmHg (35-63); VENOUS BLOOD PH 7.34 (7.30-7.42)
[2018-08-17] MEDS ORDERED: MORPHINE SULFATE 10 MG/ML INJ IV ONE (10:36)
[2018-08-17] MEDS ORDERED: CEFTRIAXONE INJ 1000 MG VIAL IV ONE (11:08)
[2018-08-17 11:16] LABS: INTERNATIONAL RATION (INR) 0.92; PROTHROMBIN TIME 12.8 SEC (11.4-15.4)
[2018-08-17 11:45] LABS: A TYPE INFLUENZA AG NEGATIVE (NEGATIVE); B INFLUENZA AG NEGATIVE (NEGATIVE)
--- NOTE | 2018-08-17 13:57 | RADIOLOGY REPORT (SQ) ---
EXAM DESCRIPTION: CT ABD/PELVIS WITH IV ORAL COMPLETED DATE/TIME: 08/17/2018 1:46 pm REASON FOR STUDY: lower abd pain, fever COMPARISON: 10/15/2017 TECHNIQUE: CT scan of the abdomen and pelvis performed with intravenous and oral contrast using dio yesy scanning technique with dynamic intravenous contrast injection. Images reviewed with lung, soft t issue, and bone windows. Reconstructed coronal and sagittal MPR images reviewed. Delayed images for e valuation of the urinary system also acquired. All images stored on PACS. All CT scanners at this facility use dose modulation, iterative reconstruction, and/or weight based d osing when appropriate to reduce radiation dose to as low as reasonably achievable (ALARA). [facility]: Dose Right [facility]: CareDose [facility]: Dose Right [facility]: Teradose 4D [facility]: [employer]io Capture CONTRAST TYPE AND DOSE: contrast/concentration: Isovue 350.00 mg/ml; Total Contrast Delivered: 67.0 ml; Total Saline Delivered: 65.0 ml RENAL FUNCTION: GFR > 60. RADIATION DOSE: CT Rad equipment meets quality standard of care and radiation dose reduction techniq ues were employed. CTDIvol: 5.1 - 6.7 mGy. DLP: 633 mGy-cm. . LIMITATIONS: None. FINDINGS: LOWER CHEST: Hiatal hernia. LIVER: Normal size. No masses. No dilated ducts. SPLEEN: Normal size. Old granulomatous disease. PANCREAS: No masses. No significant calcifications. No adjacent inflammation or peripancreatic fluid collections. Pancreatic duct not dilated. GALLBLADDER: Surgically absent. ADRENAL GLANDS: No significant masses or asymmetry. RIGHT KIDNEY AND URETER: No solid masses. No significant calcifications. No hydronephrosis or hyd roureter. LEFT KIDNEY AND URETER: No solid masses. No significant calcifications. No hydronephrosis or hydr oureter. AORTA AND VESSELS: No aneurysm. RETROPERITONEUM: No retroperitoneal adenopathy, hemorrhage or masses. BOWEL AND PERITONEAL CAVITY: Mesenteric inflammation sigmoid colon segment containing diverticulum. No ascites or free air. APPENDIX: Surgically absent. PELVIS: No significant masses. Normal bladder. No free fluid. ABDOMINAL WALL: No masses. No hernias. BONES: Nothing acute. OTHER: No other significant finding. IMPRESSION: Sigmoid diverticulitis. TECHNICAL DOCUMENTATION: JOB ID: [id number] Quality ID # [id number]: Final reports with documentation of one or more dose reduction techniques (e.g., Au tomated exposure control, adjustment of the mA and/or kV according to patient size, use of iterative reconstruction technique) 2010 [employer]- All Rights Reserved Reading location - IP/workstation name: [email or web address]
[2018-08-17] MEDS ORDERED: METRONIDAZOLE 500 MG/NS RTU 500 MG/100 ML RTUPB IV ONE (14:02)
[2018-08-17] MEDS ORDERED: CIPROFLOXACIN 400 MG/D5W RTU 400 MG/200 ML RTUPB IV ONE (14:02)
[2018-08-17] MEDS ORDERED: DEXTROSE 40% GEL 15 GM TUBE PO PRN ×2 (17:50)
[2018-08-17] MEDS ORDERED: DEXTROSE 50%-WATER 25 GM/50 ML DISP.SYRIN IV PRN ×2 (17:50)
[2018-08-17] MEDS ORDERED: GLUCAGON,HUMAN RECOMB 1 MG INJ SUBCUT PRN (17:50)
[2018-08-17 19:15] LABS: INTERNATIONAL RATION (INR) 0.99; PARTIAL THROMBOPLASTIN TIME 31.6 SEC (23.5-35.8); PROTHROMBIN TIME 13.6 SEC (11.4-15.4)
[2018-08-17 19:23] LABS: LIPASE 65.8 U/L (23-300); PHOSPHORUS 4.5 mg/dL (2.5-4.5)
[2018-08-17] MEDS: ENOXAPARIN SODIUM INJ 40 MG/0.4 ML DISP.SYRIN SUBCUT SCH (19:24)
[2018-08-17] MEDS: METRONIDAZOLE 500 MG/NS RTU 500 MG/100 ML RTUPB IV SCH (19:25)
[2018-08-17 19:27] LABS: CREATINE KINASE MB 0.52 ng/mL (<4.55)
[2018-08-17 19:35] LABS: FREE T4 (FREE THYROXINE) 0.91 ng/dL (0.78-2.19); TROPONIN I < 0.012 ng/mL
[2018-08-17 19:49] LABS: THYROID STIMULATING HORMONE 2.72 uIU/mL (0.47-4.68)
--- NOTE | 2018-08-17 22:06 | PDOC H&P ---
History of Present Illness Admission Date/PCP: 08/17/18 14:12 ARACELI CORTEZ MD History of Present Illness: MICHAEL CAMEJO is a 67 year old female, She came to emergency room for evaluation of abdominal pain fever and chills CT scan of the abdomen and pelvis was done it demonstrated sigmoid diverticulitis with leukocytosis. Past Medical History Cardiac Medical History: Reports: Hypertension Pulmonary Medical History: Reports: Asthma, Bronchitis, Pneumonia GI Medical History: Reports: Crohn's Disease, Diverticulitis, Gastroesophageal Reflux Disease, Hiatal Hernia Musculoskeltal Medical History: Reports: Arthritis Psychiatric Medical History: Reports: Depression Hematology: Reports: Anemia Past Surgical History Past Surgical History: Reports: Appendectomy, Hysterectomy, Tonsillectomy Social History Lives with: Alone Smoking Status: Never Smoker Frequency of Alcohol Use: None Hx Recreational Drug Use: No Drugs: None Hx Prescription Drug Abuse: No - Advance Directive Resuscitation Status: Full Code Family History Family History: Arthritis, CAD, CVA, DM, Hyperlipidemia, Hypertension, Malignancy, Thyroid Disfunction Parental Family History Reviewed: Yes Children Family History Reviewed: Yes Sibling(s) Family History Reviewed.: Yes Medication/Allergy Home Medications: Acetaminophen with Codeine [Tylenol #3 Tablet] 1 each PO Q8HP PRN 08/17/18 Alprazolam [Xanax 0.5 mg Tablet] 0.5 mg PO HSP PRN 08/17/18 Cetirizine HCl [Zyrtec 10 mg Tablet] 10 mg PO DAILYP PRN 08/17/18 Cyanocobalamin (Vitamin B-12) [Vitamin B-12 Inj 1000 Mcg/1 ml Vial] 1,000 mcg IM TH@1000 08/17/18 Dexlansoprazole [Dexilant 60 mg Capsule] 60 mg PO DAILYP PRN 08/17/18 Diltiazem HCl [Cardizem Cd 120 mg Capsule] 120 mg PO Q12 08/17/18 Ergocalciferol (Vitamin D2) [Drisdol 50,000 Unit (1.25MG) Capsule] 50,000 unit PO JORGE@1000 08/17/18 Hydroxyzine Pamoate [Vistaril 25 mg Capsule] 25 mg PO Q8HP PRN 08/17/18 Ibandronate Sodium [Boniva] 150 mg PO .QMONTHLY 08/17/18 Iron Ps Complex/B12/Folic Acid [Ferrex 150 Forte Capsule] 150 mg PO DAILY 08/17/18 Meclizine HCl [Antivert 25 mg Tablet] 25 mg PO TIDP PRN 08/17/18 Meloxicam [Mobic] 7.5 mg PO DAILY 08/17/18 Nystatin [Mycostatin Cream] 1 applic TP BIDP PRN 08/17/18 Triamcinolone Acetonide [Aristocort 0.5% Cream 15 gm] 1 applic TP BIDP PRN 08/17/18 Allergies/Adverse Reactions: aspirin Allergy (Severe, Verified 06/03/18 14:16) Anaphylaxis Penicillins Allergy (Severe, Verified 06/03/18 14:16) Anaphylaxis acetaminophen [From Vicodin] Allergy (Intermediate, Verified 06/03/18 14:16) Anaphylaxis hydrocodone [From Vicodin] Allergy (Intermediate, Verified 06/03/18 14:16) Anaphylaxis Sulfa (Sulfonamide Antibiotics) Allergy (Intermediate, Verified 06/03/18 14:16) iching, nausea codeine Allergy (Mild, Verified 06/03/18 14:16) Diarrhea meperidine HCl [From Demerol] Allergy (Mild, Verified 06/03/18 14:16) heart palpitations ciprofloxacin oral Allergy (Mild, Uncoded 06/03/18 14:16) itching; nausea Review of Systems Constitutional: PRESENT: chills, fever(s). ABSENT: headache(s), weight gain, w eight loss Eyes: ABSENT: visual disturbances Ears: ABSENT: hearing changes Cardiovascular: ABSENT: chest pain, dyspnea on exertion, edema, orthropnea, palpitations Respiratory: ABSENT: cough, hemoptysis Gastrointestinal: PRESENT: abdominal pain. ABSENT: constipation, diarrhea, hematemesis, hematochezia, nausea, vomiting Genitourinary: ABSENT: dysuria, hematuria Musculoskeletal: ABSENT: joint swelling Integumentary: ABSENT: rash, wounds Neurological: ABSENT: abnormal gait, abnormal speech, confusion, dizziness, focal weakness, syncope Psychiatric: ABSENT: anxiety, depression, homidical ideation, suicidal ideation Endocrine: ABSENT: cold intolerance, heat intolerance, menstrual abnormalities, polydipsia, polyuria Hematologic/Lymphatic: ABSENT: easy bleeding, easy bruising, lymphadenopathy Physical Exam Vital Signs: Temp Pulse Resp BP Pulse Ox 99.3 F 79 19 119/62 100 08/17/18 18:18 08/17/18 18:18 08/17/18 18:18 08/17/18 18:18 08/17/18 18:18 Intake & Output 08/16/18 08/17/18 08/18/18 06:59 06:59 06:59 Intake Total 2200 Balance 2200 Weight 45.5 kg General appearance: PRESENT: no acute distress, well-developed, well-nourished Head exam: PRESENT: atraumatic, normocephalic Eye exam: PRESENT: conjunctiva pink, EOMI, PERRLA Ear exam: PRESENT: normal external ear exam Mouth exam: PRESENT: moist, tongue midline Neck exam: PRESENT: full ROM Respiratory exam: PRESENT: clear to auscultation franky Cardiovascular exam: PRESENT: RRR, +S1, +S2 Pulses: PRESENT: normal dorsalis pedis pul, +2 pedal pulses bilateral Vascular exam: PRESENT: normal capillary refill GI/Abdominal exam: PRESENT: normal bowel sounds, soft, tenderness - Left lower quadrant Rectal exam: PRESENT: deferred Neurological exam: PRESENT: alert, awake, oriented to person, oriented to place, oriented to time, oriented to situation, CN II-XII grossly intact Psychiatric exam: PRESENT: appropriate affect, normal mood Skin exam: PRESENT: dry, intact, warm. ABSENT: cyanosis, rash Results Laboratory Results: 08/17/18 08:11 08/17/18 08:11 08/17/18 08/17/18 08/17/18 08:11 08:11 08:11 WBC 16.5 H RBC 4.27 Hgb 14.1 Hct 41.8 MCV 98 H MCH 33.1 MCHC 33.8 RDW 14.4 H Plt Count 448 Seg Neutrophils % 81.4 H Lymphocytes % 10.6 L Monocytes % 6.7 Eosinophils % 0.9 Basophils % 0.4 Absolute Neutrophils 13.4 H Absolute Lymphocytes 1.7 Absolute Monocytes 1.1 Absolute Eosinophils 0.2 Absolute Basophils 0.1 VBG pH VBG pCO2 VBG HCO3 VBG Base Excess Sodium 141.3 Potassium 4.1 Chloride 100 Carbon Dioxide 34 H Anion Gap 7 BUN 20 Creatinine 0.63 Est GFR ( Amer) > 60 Est GFR (Non-Af Amer) > 60 Glucose 95 Lactic Acid Calcium 9.4 Phosphorus Magnesium Total Bilirubin 0.6 AST 66 H ALT 33 Alkaline Phosphatase 107 Ammonia Total Protein 7.9 Albumin 4.5 Amylase Lipase TSH Free T4 Urine Color COLORLESS Urine Appearance CLEAR Urine pH 8.0 Ur Specific [place] 1.003 Urine Protein NEGATIVE Urine Glucose (UA) NEGATIVE Urine Ketones NEGATIVE Urine Blood NEGATIVE Urine Nitrite NEGATIVE Ur Leukocyte Esterase NEGATIVE Urine WBC (Auto) 0 08/17/18 08/17/18 08/17/18 09:50 09:50 14:00 WBC RBC Hgb Hct MCV MCH MCHC RDW Plt Count Seg Neutrophils % Lymphocytes % Monocytes % Eosinophils % Basophils % Absolute Neutrophils Absolute Lymphocytes Absolute Monocytes Absolute Eosinophils Absolute Basophils VBG pH 7.34 VBG pCO2 55.2 VBG HCO3 29.2 VBG Base Excess 2.5 Sodium Potassium Chloride Carbon Dioxide Anion Gap BUN Creatinine Est GFR ( Amer) Est GFR (Non-Af Amer) Glucose Lactic Acid 2.1 0.6 L Calcium Phosphorus Magnesium Total Bilirubin AST ALT Alkaline Phosphatase Ammonia Total Protein Albumin Amylase Lipase TSH Free T4 Urine Color Urine Appearance Urine pH Ur Specific [place] Urine Protein Urine Glucose (UA) Urine Ketones Urine Blood Urine Nitrite Ur Leukocyte Esterase Urine WBC (Auto) 08/17/18 08/17/18 08/17/18 17:52 18:25 18:25 WBC RBC Hgb Hct MCV MCH MCHC RDW Plt Count Seg Neutrophils % Lymphocytes % Monocytes % Eosinophils % Basophils % Absolute Neutrophils Absolute Lymphocytes Absolute Monocytes Absolute Eosinophils Absolute Basophils VBG pH VBG pCO2 VBG HCO3 VBG Base Excess Sodium Potassium Chloride Carbon Dioxide Anion Gap BUN Creatinine Est GFR ( Amer) Est GFR (Non-Af Amer) Glucose Lactic Acid Calcium Phosphorus 4.5 Magnesium 2.2 Total Bilirubin AST ALT Alkaline Phosphatase Ammonia < 8.7 L Total Protein Albumin Amylase 52 Lipase 65.8 TSH 2.72 Free T4 0.91 Urine Color Urine Appearance Urine pH Ur Specific [place] Urine Protein Urine Glucose (UA) Urine Ketones Urine Blood Urine Nitrite Ur Leukocyte Esterase Urine WBC (Auto) 08/17/18 08/17/18 18:25 18:25 Creatine Kinase 35 CK-MB (CK-2) 0.52 Troponin I < 0.012 Impressions: Abdomen/Pelvis CT 08/17/18 00:00 IMPRESSION: Sigmoid diverticulitis. Acute Abdomen Series 08/17/18 08:04 IMPRESSION: Mild fecal retention. Assessment & Plan - Diagnosis (1) Acute diverticulitis Is this a current diagnosis for this admission?: Yes Plan: Patient is admitted for management, keep n.p.o., IV antibiotic Cipro and Flagyl (2) Diverticulitis of colon without hemorrhage Is this a current diagnosis for this admission?: Yes
[2018-08-17] MEDS: DEXTROSE 5%-WATER 1000 ML 1,000 ML IV PRN (23:15)
[2018-08-17] MEDS: CIPROFLOXACIN 400 MG/D5W RTU 400 MG/200 ML RTUPB IV SCH (23:16)
[2018-08-18] MEDS: METRONIDAZOLE 500 MG/NS RTU 500 MG/100 ML RTUPB IV SCH ×3 (01:19→12:04)
[2018-08-18] MEDS: HYDROMORPHONE HCL INJ/PF 2 MG/ML AMPULE IV PRN ×6 (01:19→22:59)
[2018-08-18 01:28] LABS: CREATINE KINASE MB 0.33 ng/mL (<4.55)
[2018-08-18 01:33] LABS: TROPONIN I < 0.012 ng/mL
[2018-08-18 07:35] LABS: ABSOLUTE BASOPHILS # (AUTO) 0.1 10^3/uL (0.0-0.2); ABSOLUTE EOSINOPHILS # (AUTO) 0.1 10^3/uL (0.0-0.6); ABSOLUTE LYMPHOCYTES (AUTO) 1.4 10^3/uL (0.5-4.7); ABSOLUTE MONOCYTES (AUTO) 1.5 10^3/uL (0.1-1.4); ABSOLUTE NEUT (AUTO) 12.3 10^3/uL (1.7-8.2); BASOPHILS % (AUTO) 0.5 % (0-2); EOSINOPHILS % (AUTO) 0.7 % (0-6); HEMATOCRIT 36.6 % (36.0-47.0); HEMOGLOBIN 12.2 g/dL (12.0-15.5); MEAN CORPUSCULAR HEMOGLOBIN 32.6 pg (27.0-33.4); MEAN CORPUSCULAR HGB CONC 33.3 g/dL (32.0-36.0); MEAN CORPUSCULAR VOLUME 98 fl (80-97); PLATELET COUNT 349 10^3/uL (150-450); RED BLOOD COUNT 3.74 10^6/uL (3.72-5.28); RED CELL DISTRIBUTION WIDTH 14.2 % (11.5-14.0); SEGMENTED NEUTROPHILS % (AUTO) 79.8 % (42-78); TOTAL CELLS COUNTED % (AUTO) 100 %; WHITE BLOOD COUNT 15.4 10^3/uL (4.0-10.5)
[2018-08-18 07:55] LABS: ALANINE AMINOTRANSFERASE 21 U/L (9-52); ALBUMIN 3.3 g/dL (3.5-5.0); ALKALINE PHOSPHATASE 66 U/L (38-126); ANION GAP 9 (5-19); ASPARTATE AMINO TRANSFERASE 14 U/L (14-36); BILIRUBIN,DIRECT 0.2 mg/dL (0.0-0.4); BLOOD UREA NITROGEN 11 mg/dL (7-20); CALCIUM 8.3 mg/dL (8.4-10.2); CARBON DIOXIDE 25 mmol/L (22-30); CHLORIDE 101 mmol/L (98-107); CHOLESTEROL 138.55 mg/dL (0-200); GLUCOSE 99 mg/dL (75-110); POTASSIUM 3.9 mmol/L (3.6-5.0); SODIUM 135.1 mmol/L (137-145); TOTAL PROTEIN 5.9 g/dL (6.3-8.2); TRIGLYCERIDES 52 mg/dL (<150)
[2018-08-18 08:04] LABS: CREATINE KINASE MB 0.26 ng/mL (<4.55)
[2018-08-18 08:06] LABS: CREATINE KINASE < 20 U/L (30-135); DIRECT LDL 92 mg/dL (<100); TROPONIN I < 0.012 ng/mL
[2018-08-18] MEDS: ENOXAPARIN SODIUM INJ 40 MG/0.4 ML DISP.SYRIN SUBCUT SCH (09:45)
[2018-08-18] MEDS: CIPROFLOXACIN 400 MG/D5W RTU 400 MG/200 ML RTUPB IV SCH ×2 (09:46→21:53)
[2018-08-18] MEDS: DEXTROSE 5%-WATER 1000 ML 1,000 ML IV PRN (12:04)
[2018-08-18 12:19] LABS: URINE AMPHETAMINES SCREEN NEGATIVE; URINE BARBITURATES SCREEN NEGATIVE; URINE BENZODIAZEPINES SCREEN NEGATIVE; URINE COCAINE SCREEN NEGATIVE; URINE MARIJUANA (THC) SCREEN NEGATIVE; URINE METHADONE SCREEN NEGATIVE; URINE PHENCYCLIDINE SCREEN NEGATIVE
--- NOTE | 2018-08-18 15:05 | EKG REPORT ---
SEVERITY:- NORMAL ECG - SINUS RHYTHM : Confirmed by: Dominique Stevens 18-Aug-2018 15:03:59
[2018-08-18] MEDS ORDERED: CYANOCOBALAMIN (VITAMIN B-12) INJ 1000 MCG/1 ML VIAL IM ONE (20:00)
--- NOTE | 2018-08-18 21:09 | PDOC PROGRESS REPORT ---
Subjective Progress Note for:: 08/18/18 Subjective:: Patient was admitted yesterday for the management of acute diverticulitis she was seen today by the bedside she is requesting for more IV fluid still n.p.o. Reason For Visit: ACUTE SIGMOID DIVERTICULITIS Physical Exam Vital Signs: Temp Pulse Resp BP Pulse Ox 99.0 F 87 22 H 116/67 98 08/18/18 16:03 08/18/18 16:03 08/18/18 16:03 08/18/18 16:03 08/18/18 16:03 Intake & Output 08/17/18 08/18/18 08/19/18 06:59 06:59 06:59 Intake Total 2700 1300 Output Total 250 1060 Balance 2450 240 Weight 99.1 kg General appearance: PRESENT: no acute distress Eye exam: PRESENT: PERRLA Respiratory exam: PRESENT: clear to auscultation franky Cardiovascular exam: PRESENT: +S1, +S2 GI/Abdominal exam: PRESENT: tenderness Neurological exam: PRESENT: alert Results Laboratory Results: 08/18/18 06:58 08/18/18 06:58 08/18/18 08/18/18 06:58 06:58 WBC 15.4 H RBC 3.74 Hgb 12.2 Hct 36.6 MCV 98 H MCH 32.6 MCHC 33.3 RDW 14.2 H Plt Count 349 Seg Neutrophils % 79.8 H Lymphocytes % 9.0 L Monocytes % 10.0 Eosinophils % 0.7 Basophils % 0.5 Absolute Neutrophils 12.3 H Absolute Lymphocytes 1.4 Absolute Monocytes 1.5 H Absolute Eosinophils 0.1 Absolute Basophils 0.1 Sodium 135.1 L Potassium 3.9 Chloride 101 Carbon Dioxide 25 Anion Gap 9 BUN 11 Creatinine 0.64 Est GFR ( Amer) > 60 Est GFR (Non-Af Amer) > 60 Glucose 99 Calcium 8.3 L Total Bilirubin 1.0 AST 14 ALT 21 Alkaline Phosphatase 66 Total Protein 5.9 L Albumin 3.3 L Triglycerides 52 Cholesterol 138.55 LDL Cholesterol Direct 92 VLDL Cholesterol 10.0 HDL Cholesterol 52 08/17/18 08/17/18 08/18/18 18:25 18:25 00:49 Creatine Kinase 35 25 L CK-MB (CK-2) 0.52 Troponin I < 0.012 08/18/18 08/18/18 08/18/18 00:49 06:58 06:58 Creatine Kinase < 20 L CK-MB (CK-2) 0.33 0.26 Troponin I < 0.012 < 0.012 Impressions: Abdomen/Pelvis CT 08/17/18 00:00 IMPRESSION: Sigmoid diverticulitis. Acute Abdomen Series 08/17/18 08:04 IMPRESSION: Mild fecal retention. Assessment & Plan - Diagnosis (1) Acute diverticulitis Is this a current diagnosis for this admission?: Yes Plan: Continue IV antibiotic (2) Diverticulitis of colon without hemorrhage Is this a current diagnosis for this admission?: Yes
[2018-08-19] MEDS: METRONIDAZOLE 500 MG/NS RTU 500 MG/100 ML RTUPB IV SCH ×5 (02:21→23:56)
[2018-08-19] MEDS: HYDROMORPHONE HCL INJ/PF 2 MG/ML AMPULE IV PRN ×2 (04:31→09:46)
[2018-08-19 05:46] LABS: ABSOLUTE BASOPHILS # (AUTO) 0.1 10^3/uL (0.0-0.2); ABSOLUTE EOSINOPHILS # (AUTO) 0.2 10^3/uL (0.0-0.6); ABSOLUTE LYMPHOCYTES (AUTO) 1.1 10^3/uL (0.5-4.7); ABSOLUTE MONOCYTES (AUTO) 0.8 10^3/uL (0.1-1.4); ABSOLUTE NEUT (AUTO) 7.2 10^3/uL (1.7-8.2); EOSINOPHILS % (AUTO) 2.3 % (0-6); HEMATOCRIT 33.8 % (36.0-47.0); HEMOGLOBIN 11.5 g/dL (12.0-15.5); LYMPHOCYTES % (AUTO) 11.8 % (13-45); MEAN CORPUSCULAR HEMOGLOBIN 33.1 pg (27.0-33.4); MEAN CORPUSCULAR VOLUME 97 fl (80-97); MONOCYTES % (AUTO) 8.4 % (3-13); PLATELET COUNT 327 10^3/uL (150-450); RED BLOOD COUNT 3.47 10^6/uL (3.72-5.28); RED CELL DISTRIBUTION WIDTH 13.9 % (11.5-14.0); SEGMENTED NEUTROPHILS % (AUTO) 76.5 % (42-78); TOTAL CELLS COUNTED % (AUTO) 100 %; WHITE BLOOD COUNT 9.4 10^3/uL (4.0-10.5)
[2018-08-19 06:10] LABS: ALANINE AMINOTRANSFERASE 16 U/L (9-52); ALBUMIN 3.1 g/dL (3.5-5.0); ALKALINE PHOSPHATASE 56 U/L (38-126); ANION GAP 11 (5-19); ASPARTATE AMINO TRANSFERASE 15 U/L (14-36); BILIRUBIN,DIRECT 0.2 mg/dL (0.0-0.4); BILIRUBIN,TOTAL 0.7 mg/dL (0.2-1.3); BLOOD UREA NITROGEN 12 mg/dL (7-20); CALCIUM 8.5 mg/dL (8.4-10.2); CARBON DIOXIDE 24 mmol/L (22-30); CHLORIDE 104 mmol/L (98-107); GLUCOSE 98 mg/dL (75-110); POTASSIUM 3.8 mmol/L (3.6-5.0); SODIUM 138.7 mmol/L (137-145); TOTAL PROTEIN 5.8 g/dL (6.3-8.2)
[2018-08-19] MEDS: CIPROFLOXACIN 400 MG/D5W RTU 400 MG/200 ML RTUPB IV SCH ×2 (09:47→22:13)
[2018-08-19] MEDS: ENOXAPARIN SODIUM INJ 40 MG/0.4 ML DISP.SYRIN SUBCUT SCH (09:47)
[2018-08-19] MEDS ORDERED: NYSTATIN CREAM 15 GM TP PRN (13:04)
--- NOTE | 2018-08-19 13:09 | PDOC PROGRESS REPORT ---
Subjective Progress Note for:: 08/19/18 Subjective:: Patient is currently doing fair Still complains of abdominal pain Patient was admitted with sigmoid diverticulitis currently on Cipro and Flagyl Patient have a significant history of anxiety disorder Patient's denied any chest pain to than any shortness of the breath Patient also asking for the colon prep for the constipations patient's last bowel movement 2 days back Patient's otherwise also asking for the pain medications Reason For Visit: ACUTE SIGMOID DIVERTICULITIS Physical Exam Vital Signs: Temp Pulse Resp BP Pulse Ox 97.7 F 70 20 121/59 L 100 08/19/18 09:18 08/19/18 09:18 08/19/18 09:18 08/19/18 09:18 08/19/18 09:18 Intake & Output 08/18/18 08/19/18 08/20/18 06:59 06:59 06:59 Intake Total 2700 2600 300 Output Total 250 1910 Balance 2450 690 300 Weight 99.1 kg 100.9 kg General appearance: PRESENT: no acute distress, well-developed, well-nourished Head exam: PRESENT: atraumatic, normocephalic Eye exam: PRESENT: conjunctiva pink, EOMI, PERRLA. ABSENT: scleral icterus Ear exam: PRESENT: normal external ear exam Mouth exam: PRESENT: moist, tongue midline Neck exam: PRESENT: full ROM. ABSENT: carotid bruit, JVD, lymphadenopathy, thyromegaly Respiratory exam: PRESENT: clear to auscultation franky Cardiovascular exam: PRESENT: RRR. ABSENT: diastolic murmur, rubs, systolic murmur Pulses: PRESENT: normal dorsalis pedis pul, +2 pedal pulses bilateral Vascular exam: PRESENT: normal capillary refill GI/Abdominal exam: PRESENT: normal bowel sounds, soft. ABSENT: distended, guarding, mass, organolmegaly, rebound, tenderness Rectal exam: PRESENT: deferred Extremities exam: ABSENT: pedal edema Neurological exam: PRESENT: alert, awake, oriented to person, oriented to place, oriented to time, oriented to situation, CN II-XII grossly intact. ABSENT: motor sensory deficit Psychiatric exam: PRESENT: appropriate affect, normal mood. ABSENT: homicidal ideation, suicidal ideation Skin exam: PRESENT: dry, intact, warm. ABSENT: cyanosis, rash Results Laboratory Results: 08/19/18 03:59 08/19/18 03:59 08/19/18 08/19/18 03:59 03:59 WBC 9.4 RBC 3.47 L Hgb 11.5 L Hct 33.8 L MCV 97 MCH 33.1 MCHC 34.0 RDW 13.9 Plt Count 327 Seg Neutrophils % 76.5 Lymphocytes % 11.8 L Monocytes % 8.4 Eosinophils % 2.3 Basophils % 1.0 Absolute Neutrophils 7.2 Absolute Lymphocytes 1.1 Absolute Monocytes 0.8 Absolute Eosinophils 0.2 Absolute Basophils 0.1 Sodium 138.7 Potassium 3.8 Chloride 104 Carbon Dioxide 24 Anion Gap 11 BUN 12 Creatinine 0.56 Est GFR ( Amer) > 60 Est GFR (Non-Af Amer) > 60 Glucose 98 Calcium 8.5 Total Bilirubin 0.7 AST 15 ALT 16 Alkaline Phosphatase 56 Total Protein 5.8 L Albumin 3.1 L 08/17/18 08:11 Clean Catch Midstream Urine Culture - Final NO GROWTH 2 DAYS 08/17/18 08/17/18 08/18/18 18:25 18:25 00:49 Creatine Kinase 35 25 L CK-MB (CK-2) 0.52 Troponin I < 0.012 08/18/18 08/18/18 08/18/18 00:49 06:58 06:58 Creatine Kinase < 20 L CK-MB (CK-2) 0.33 0.26 Troponin I < 0.012 < 0.012 Impressions: Abdomen/Pelvis CT 08/17/18 00:00 IMPRESSION: Sigmoid diverticulitis. Acute Abdomen Series 08/17/18 08:04 IMPRESSION: Mild fecal retention. Assessment & Plan - Diagnosis (1) Acute diverticulitis Is this a current diagnosis for this admission?: Yes Plan: Continue Cipro and Flagyl (2) Constipation Qualifiers: Constipation type: unspecified constipation type Qualified Code(s): K59.00 - Constipation, unspecified Is this a current diagnosis for this admission?: Yes Plan: Using Colace and MiraLAX (3) Crohns disease Qualifiers: Digestive disease complication type: unspecified complication Is this a current diagnosis for this admission?: Yes Plan: Patients need to probably GI evaluations patient see her Dr. Rajput is outpatients (4) Depression Qualifiers: Depression Type: unspecified Qualified Code(s): F32.9 - Major depressive disorder, single episode, unspecified Is this a current diagnosis for this admission?: Yes Plan: continue to current medications - Time Time Spent with patient: 15-24 minutes Medications reviewed and adjusted accordingly: Yes Anticipated discharge: Home Within: Other - Plan Summary Plan Summary: Patient's continues to IV antibiotics we will start the patient on a clear liquid diets
[2018-08-19] MEDS ORDERED: LANSOPRAZOLE 30 MG TAB.RAP.DR PO PRN (14:49)
[2018-08-19] MEDS: DEXTROSE 5%-WATER 1000 ML 1,000 ML IV PRN (17:08)
[2018-08-19] MEDS: DILTIAZEM HCL 120 MG CAP.SR.24H PO SCH (22:20)
[2018-08-20] MEDS: METRONIDAZOLE 500 MG/NS RTU 500 MG/100 ML RTUPB IV SCH ×3 (05:06→17:15)
[2018-08-20] MEDS: DEXTROSE 5%-WATER 1000 ML 1,000 ML IV PRN ×2 (05:07→08:14)
[2018-08-20 06:10] LABS: ALANINE AMINOTRANSFERASE 18 U/L (9-52); ALBUMIN 3.3 g/dL (3.5-5.0); ALKALINE PHOSPHATASE 50 U/L (38-126); ANION GAP 9 (5-19); ASPARTATE AMINO TRANSFERASE 19 U/L (14-36); BILIRUBIN,DIRECT 0.3 mg/dL (0.0-0.4); BILIRUBIN,TOTAL 0.5 mg/dL (0.2-1.3); BLOOD UREA NITROGEN 13 mg/dL (7-20); CALCIUM 8.5 mg/dL (8.4-10.2); CARBON DIOXIDE 26 mmol/L (22-30); CHLORIDE 104 mmol/L (98-107); GLUCOSE 139 mg/dL (75-110); POTASSIUM 3.9 mmol/L (3.6-5.0); SODIUM 139.3 mmol/L (137-145); TOTAL PROTEIN 6.1 g/dL (6.3-8.2)
[2018-08-20 06:13] LABS: ABSOLUTE BASOPHILS # (AUTO) 0.1 10^3/uL (0.0-0.2); ABSOLUTE EOSINOPHILS # (AUTO) 0.3 10^3/uL (0.0-0.6); ABSOLUTE LYMPHOCYTES (AUTO) 1.1 10^3/uL (0.5-4.7); ABSOLUTE MONOCYTES (AUTO) 0.4 10^3/uL (0.1-1.4); ABSOLUTE NEUT (AUTO) 4.3 10^3/uL (1.7-8.2); BASOPHILS % (AUTO) 1.3 % (0-2); EOSINOPHILS % (AUTO) 5.2 % (0-6); HEMATOCRIT 38.8 % (36.0-47.0); HEMOGLOBIN 13.1 g/dL (12.0-15.5); LYMPHOCYTES % (AUTO) 17.1 % (13-45); MEAN CORPUSCULAR HGB CONC 33.8 g/dL (32.0-36.0); MEAN CORPUSCULAR VOLUME 98 fl (80-97); MONOCYTES % (AUTO) 6.9 % (3-13); PLATELET COUNT 289 10^3/uL (150-450); RED BLOOD COUNT 3.97 10^6/uL (3.72-5.28); RED CELL DISTRIBUTION WIDTH 13.8 % (11.5-14.0); SEGMENTED NEUTROPHILS % (AUTO) 69.5 % (42-78); TOTAL CELLS COUNTED % (AUTO) 100 %; WHITE BLOOD COUNT 6.2 10^3/uL (4.0-10.5)
[2018-08-20] MEDS ORDERED: MAG HYDROX/AL HYDROX/SIMETH SUSP 30 ML UDCUP PO PRN (10:32)
[2018-08-20] MEDS: DILTIAZEM HCL 120 MG CAP.SR.24H PO SCH ×2 (10:36→22:18)
[2018-08-20] MEDS: ENOXAPARIN SODIUM INJ 40 MG/0.4 ML DISP.SYRIN SUBCUT SCH (10:36)
[2018-08-20] MEDS: CIPROFLOXACIN 400 MG/D5W RTU 400 MG/200 ML RTUPB IV SCH ×2 (10:37→22:29)
--- NOTE | 2018-08-20 11:28 | PDOC PROGRESS REPORT ---
Subjective Progress Note for:: 08/20/18 Subjective:: She is currently doing fair Patient's denied any chest pain denied any shortness of the breath Patient tolerated the clear liquid diet very well Patient asking for the bowel prep solutions patient also asking for the Pepcid assess for the Bentyl and patient's try to clean herself to put her finger on rectal area Discussed with the patients do not do that, but thinks Patient's all blood work is stable Patient usually sees Dr. Rajput as outpatients for this of questionable Crohn's colitis Patient also have a hiatal hernia usually take the Dexilant at home patient's currently no formulary in the hospital and want to try the patient is set up the Protonix Reason For Visit: ACUTE SIGMOID DIVERTICULITIS Physical Exam Vital Signs: Temp Pulse Resp BP Pulse Ox 97.4 F 73 20 120/64 100 08/20/18 07:37 08/20/18 07:37 08/20/18 07:37 08/20/18 07:37 08/20/18 07:37 Intake & Output 08/19/18 08/20/18 08/21/18 06:59 06:59 06:59 Intake Total 2600 2620 312 Output Total 1910 6300 Balance 690 -3680 312 Weight 100.9 kg 45.1 kg General appearance: PRESENT: no acute distress, well-developed, well-nourished Head exam: PRESENT: atraumatic, normocephalic Eye exam: PRESENT: conjunctiva pink, EOMI, PERRLA. ABSENT: scleral icterus Ear exam: PRESENT: normal external ear exam Mouth exam: PRESENT: moist, tongue midline Neck exam: PRESENT: full ROM. ABSENT: carotid bruit, JVD, lymphadenopathy, thyromegaly Respiratory exam: PRESENT: clear to auscultation franky Cardiovascular exam: PRESENT: RRR. ABSENT: diastolic murmur, rubs, systolic murmur Pulses: PRESENT: normal dorsalis pedis pul, +2 pedal pulses bilateral Vascular exam: PRESENT: normal capillary refill GI/Abdominal exam: PRESENT: normal bowel sounds, soft. ABSENT: distended, guarding, mass, organolmegaly, rebound, tenderness Rectal exam: PRESENT: deferred Extremities exam: ABSENT: pedal edema Neurological exam: PRESENT: alert, awake, oriented to person, oriented to place, oriented to time, oriented to situation, CN II-XII grossly intact. ABSENT: motor sensory deficit Psychiatric exam: PRESENT: appropriate affect, normal mood. ABSENT: homicidal ideation, suicidal ideation Skin exam: PRESENT: dry, intact, warm. ABSENT: cyanosis, rash Results Laboratory Results: 08/20/18 05:02 08/20/18 05:02 08/20/18 08/20/18 05:02 05:02 WBC 6.2 RBC 3.97 Hgb 13.1 Hct 38.8 MCV 98 H MCH 33.0 MCHC 33.8 RDW 13.8 Plt Count 289 Seg Neutrophils % 69.5 Lymphocytes % 17.1 Monocytes % 6.9 Eosinophils % 5.2 Basophils % 1.3 Absolute Neutrophils 4.3 Absolute Lymphocytes 1.1 Absolute Monocytes 0.4 Absolute Eosinophils 0.3 Absolute Basophils 0.1 Sodium 139.3 Potassium 3.9 Chloride 104 Carbon Dioxide 26 Anion Gap 9 BUN 13 Creatinine 0.52 Est GFR ( Amer) > 60 Est GFR (Non-Af Amer) > 60 Glucose 139 H Calcium 8.5 Total Bilirubin 0.5 AST 19 ALT 18 Alkaline Phosphatase 50 Total Protein 6.1 L Albumin 3.3 L 08/17/18 08:11 Clean Catch Midstream Urine Culture - Final NO GROWTH 2 DAYS 08/17/18 08/17/18 08/18/18 18:25 18:25 00:49 Creatine Kinase 35 25 L CK-MB (CK-2) 0.52 Troponin I < 0.012 08/18/18 08/18/18 08/18/18 00:49 06:58 06:58 Creatine Kinase < 20 L CK-MB (CK-2) 0.33 0.26 Troponin I < 0.012 < 0.012 Impressions: Abdomen/Pelvis CT 08/17/18 00:00 IMPRESSION: Sigmoid diverticulitis. Acute Abdomen Series 08/17/18 08:04 IMPRESSION: Mild fecal retention. Assessment & Plan - Diagnosis (1) Acute diverticulitis Is this a current diagnosis for this admission?: Yes Plan: Currently doing well will continues to IV antibiotic and also advance the diet (2) Constipation Qualifiers: Constipation type: unspecified constipation type Qualified Code(s): K59.00 - Constipation, unspecified Is this a current diagnosis for this admission?: Yes Plan: Using Colace and MiraLAX (3) Crohns disease Qualifiers: Digestive disease complication type: unspecified complication Is this a current diagnosis for this admission?: Yes Plan: The patient on the Bentyl for the irritable bowel syndromes (4) Depression Qualifiers: Depression Type: unspecified Qualified Code(s): F32.9 - Major depressive disorder, single episode, unspecified Is this a current diagnosis for this admission?: Yes Plan: continue to current medications - Time Time Spent with patient: 15-24 minutes Medications reviewed and adjusted accordingly: Yes Anticipated discharge: Home Within: Other - Plan Summary Plan Summary: Get the x-ray KUB
--- NOTE | 2018-08-20 11:57 | RADIOLOGY REPORT (SQ) ---
EXAM DESCRIPTION: KUB/ABDOMEN (SINGLE VIEW) COMPLETED DATE/TIME: 08/20/2018 11:49 am REASON FOR STUDY: abd pain COMPARISON: 08/17/2018 imaging. NUMBER OF VIEWS: One view. TECHNIQUE: Supine radiographic image of the abdomen acquired. LIMITATIONS: None. FINDINGS: BOWEL GAS PATTERN: Nonobstructive. Persistent enteric CT contrast throughout much of the colon. CALCIFICATIONS: No suspicious calcifications. SOFT TISSUES: No gross mass or suggestion of organomegaly. HARDWARE: None in the abdomen. BONES: No acute fracture. No worrisome bone lesions. OTHER: No other significant finding. IMPRESSION: NO RADIOGRAPHIC EVIDENCE FOR ACUTE ABDOMINAL DISEASE. TECHNICAL DOCUMENTATION: JOB ID: [id number] [employer]- All Rights Reserved Reading location - IP/workstation name: [email or web address]
[2018-08-20] MEDS: FAMOTIDINE 20 MG TABLET PO SCH ×2 (12:32→22:29)
[2018-08-20] MEDS: HYDROMORPHONE HCL INJ/PF 2 MG/ML AMPULE IV PRN ×2 (12:32→17:38)
[2018-08-20] MEDS: DICYCLOMINE HCL 10 MG CAPSULE PO SCH ×2 (14:50→22:29)
[2018-08-20] MEDS: ALPRAZOLAM 0.5 MG TABLET PO PRN (22:29)
[2018-08-21] MEDS: METRONIDAZOLE 500 MG/NS RTU 500 MG/100 ML RTUPB IV SCH ×4 (00:56→17:24)
[2018-08-21 05:04] LABS: ABSOLUTE EOSINOPHILS # (AUTO) 0.2 10^3/uL (0.0-0.6); ABSOLUTE MONOCYTES (AUTO) 0.6 10^3/uL (0.1-1.4); ABSOLUTE NEUT (AUTO) 2.8 10^3/uL (1.7-8.2); BASOPHILS % (AUTO) 0.3 % (0-2); EOSINOPHILS % (AUTO) 5.2 % (0-6); HEMATOCRIT 33.7 % (36.0-47.0); HEMOGLOBIN 11.7 g/dL (12.0-15.5); LYMPHOCYTES % (AUTO) 22.3 % (13-45); MEAN CORPUSCULAR HEMOGLOBIN 33.6 pg (27.0-33.4); MEAN CORPUSCULAR HGB CONC 34.6 g/dL (32.0-36.0); MEAN CORPUSCULAR VOLUME 97 fl (80-97); MONOCYTES % (AUTO) 12.2 % (3-13); PLATELET COUNT 338 10^3/uL (150-450); RED BLOOD COUNT 3.48 10^6/uL (3.72-5.28); RED CELL DISTRIBUTION WIDTH 13.7 % (11.5-14.0); TOTAL CELLS COUNTED % (AUTO) 100 %; WHITE BLOOD COUNT 4.6 10^3/uL (4.0-10.5)
[2018-08-21 05:28] LABS: ANION GAP 7 (5-19); BLOOD UREA NITROGEN 7 mg/dL (7-20); CALCIUM 8.4 mg/dL (8.4-10.2); CARBON DIOXIDE 26 mmol/L (22-30); CHLORIDE 107 mmol/L (98-107); GLUCOSE 132 mg/dL (75-110); POTASSIUM 3.3 mmol/L (3.6-5.0); SODIUM 140.1 mmol/L (137-145)
[2018-08-21] MEDS: DICYCLOMINE HCL 10 MG CAPSULE PO SCH ×3 (05:54→21:38)
[2018-08-21] MEDS: DILTIAZEM HCL 120 MG CAP.SR.24H PO SCH ×2 (09:06→21:04)
[2018-08-21] MEDS: FAMOTIDINE 20 MG TABLET PO SCH ×2 (09:07→21:38)
[2018-08-21] MEDS: ENOXAPARIN SODIUM INJ 40 MG/0.4 ML DISP.SYRIN SUBCUT SCH (09:07)
[2018-08-21] MEDS: CIPROFLOXACIN 400 MG/D5W RTU 400 MG/200 ML RTUPB IV SCH ×3 (09:07→23:15)
[2018-08-21] MEDS ORDERED: POTASSIUM CHLORIDE 10 MEQ CAPSULE.ER PO ONE (10:34)
--- NOTE | 2018-08-21 11:36 | PDOC PROGRESS REPORT ---
Subjective Progress Note for:: 08/21/18 Subjective:: Is currently doing fair As per review the medical record patient have a lot of somatization symptoms Patient's denied any chest pain denied any shortness of the breath Patient still feels like this is constipated Patient x-ray KUB all stable Will advance the diet Patient is scheduled for the endoscopy and colonoscopy per Dr. Rajput on August Reason For Visit: ACUTE SIGMOID DIVERTICULITIS Physical Exam Vital Signs: Temp Pulse Resp BP Pulse Ox 97.9 F 58 L 16 115/55 L 100 08/21/18 07:17 08/21/18 07:17 08/21/18 07:17 08/21/18 07:17 08/21/18 07:17 Intake & Output 08/20/18 08/21/18 08/22/18 06:59 06:59 06:59 Intake Total 2620 2900 300 Output Total 6300 4700 Balance -3680 -1800 300 Weight 45.1 kg 45.1 kg General appearance: PRESENT: no acute distress, well-developed, well-nourished Head exam: PRESENT: atraumatic, normocephalic Eye exam: PRESENT: conjunctiva pink, EOMI, PERRLA. ABSENT: scleral icterus Ear exam: PRESENT: normal external ear exam Mouth exam: PRESENT: moist, tongue midline Neck exam: PRESENT: full ROM. ABSENT: carotid bruit, JVD, lymphadenopathy, thyromegaly Respiratory exam: PRESENT: clear to auscultation franky Cardiovascular exam: PRESENT: RRR. ABSENT: diastolic murmur, rubs, systolic murmur Pulses: PRESENT: normal dorsalis pedis pul, +2 pedal pulses bilateral Vascular exam: PRESENT: normal capillary refill GI/Abdominal exam: PRESENT: normal bowel sounds, soft. ABSENT: distended, guarding, mass, organolmegaly, rebound, tenderness Rectal exam: PRESENT: deferred Extremities exam: ABSENT: pedal edema Neurological exam: PRESENT: alert, awake, oriented to person, oriented to place, oriented to time, oriented to situation, CN II-XII grossly intact. ABSENT: motor sensory deficit Psychiatric exam: PRESENT: appropriate affect, normal mood. ABSENT: homicidal ideation, suicidal ideation Skin exam: PRESENT: dry, intact, warm. ABSENT: cyanosis, rash Results Laboratory Results: 08/21/18 04:15 08/21/18 04:15 08/21/18 08/21/18 04:15 04:15 WBC 4.6 RBC 3.48 L Hgb 11.7 L Hct 33.7 L MCV 97 MCH 33.6 H MCHC 34.6 RDW 13.7 Plt Count 338 Seg Neutrophils % 60.0 Lymphocytes % 22.3 Monocytes % 12.2 Eosinophils % 5.2 Basophils % 0.3 Absolute Neutrophils 2.8 Absolute Lymphocytes 1.0 Absolute Monocytes 0.6 Absolute Eosinophils 0.2 Absolute Basophils 0.0 Sodium 140.1 Potassium 3.3 L Chloride 107 Carbon Dioxide 26 Anion Gap 7 BUN 7 Creatinine 0.59 Est GFR ( Amer) > 60 Est GFR (Non-Af Amer) > 60 Glucose 132 H Calcium 8.4 08/17/18 08/17/18 08/18/18 18:25 18:25 00:49 Creatine Kinase 35 25 L CK-MB (CK-2) 0.52 Troponin I < 0.012 08/18/18 08/18/18 08/18/18 00:49 06:58 06:58 Creatine Kinase < 20 L CK-MB (CK-2) 0.33 0.26 Troponin I < 0.012 < 0.012 Impressions: Abdomen/Pelvis CT 08/17/18 00:00 IMPRESSION: Sigmoid diverticulitis. Acute Abdomen Series 08/17/18 08:04 IMPRESSION: Mild fecal retention. KUB X-Ray 08/20/18 00:00 IMPRESSION: NO RADIOGRAPHIC EVIDENCE FOR ACUTE ABDOMINAL DISEASE. Assessment & Plan - Diagnosis (1) Acute diverticulitis Is this a current diagnosis for this admission?: Yes Plan: Currently doing well will continues to IV antibiotic and also advance the diet (2) Constipation Qualifiers: Constipation type: unspecified constipation type Qualified Code(s): K59.00 - Constipation, unspecified Is this a current diagnosis for this admission?: Yes Plan: Using Colace and MiraLAX (3) Crohns disease Qualifiers: Digestive disease complication type: unspecified complication Is this a current diagnosis for this admission?: Yes Plan: The patient on the Bentyl for the irritable bowel syndromes (4) Depression Qualifiers: Depression Type: unspecified Qualified Code(s): F32.9 - Major depressive disorder, single episode, unspecified Is this a current diagnosis for this admission?: Yes - Time Time Spent with patient: 15-24 minutes Medications reviewed and adjusted accordingly: Yes Anticipated discharge: Other Within: Other - Plan Summary Plan Summary: Replace the potassiums advance the diet
[2018-08-21] MEDS: HYDROMORPHONE HCL INJ/PF 2 MG/ML AMPULE IV PRN (12:00)
[2018-08-21] MEDS: DEXTROSE 5%-WATER 1000 ML 1,000 ML IV PRN (13:40)
[2018-08-21 16:34] VITALS: BP 132/60
[2018-08-21] MEDS: ALPRAZOLAM 0.5 MG TABLET PO PRN (21:39)
[2018-08-24] MEDS ORDERED: CYANOCOBALAMIN (VITAMIN B-12) INJ 1000 MCG/1 ML VIAL IM SCH (10:00)
== END 2018-08-22 00:10 | disposition left against medical advice (07) | DRG 392 ==
LOC: ER 06:57 → EH 14:12 → 4N 16:00
PROVIDERS: ADMIT Internal Medicine; ATTEND Internal Medicine
DX: K57.32 Diverticulitis of large intestine without perforation or abscess without bleeding (principal); K50.90 Crohn's disease, unspecified, without complications; K59.00 Constipation, unspecified; I10 Essential (primary) hypertension; J45.909 Unspecified asthma, uncomplicated; K21.9 Gastro-esophageal reflux disease without esophagitis; K44.9 Diaphragmatic hernia without obstruction or gangrene; M19.90 Unspecified osteoarthritis, unspecified site; F32.9 Major depressive disorder, single episode, unspecified; D64.9 Anemia, unspecified; Z79.899 Other long term (current) drug therapy; Z87.19 Personal history of other diseases of the digestive system; Z90.710 Acquired absence of both cervix and uterus; Z88.6 Allergy status to analgesic agent; Z88.0 Allergy status to penicillin; Z88.2 Allergy status to sulfonamides; Z88.8 Allergy status to other drugs, medicaments and biological substances
CPT/HCPCS: 36415; 74018; 74022; 74177; 80048; 80053; 80061; 80076; 80307; 81001; 82140; 82150; 82550; 82553; 82803; 83036; 83605; 83690; 83735; 84100; 84439; 84443; 84484; 85025; 85610; 85730; 87040; 87086; 87804; 93005; 93010; 96361; 96365; 96366; 96375; 99285; J0696; J0744; J1170; J1650; J2060; J2270; J2405; J3420; J3490; J7030; J7060

== ENCOUNTER 2018-09-01 13:41 | Inpatient (IN) | payer MEDICARE, MEDICAID ==
[2018-09-01] MEDS ORDERED: LEVOFLOXACIN 750 MG/D5W RTU 750 MG/150 ML RTUPB IV ONE (15:28)
[2018-09-01] MEDS ORDERED: METRONIDAZOLE RTU 500 MG/NS 100 ML IV ONE (15:31)
[2018-09-01] MEDS ORDERED: HYDROMORPHONE HCL INJ/PF 2 MG/ML AMPULE IV ONE (15:34)
--- NOTE | 2018-09-01 15:34 | ER Document Report ---
ED General - General Chief Complaint: Abdominal Pain Stated Complaint: ABDOMINAL PAIN Time Seen by Provider: 09/01/18 15:20 TRAVEL OUTSIDE OF THE [place] IN LAST 30 DAYS: No COUNTRY TRAVELED TO/FROM: [facility] Notes: Patient is a 67-year-old female that presents to the emergency department for chief complaint of diverticulitis. Patient was referred to the ER by her primary care doctor for admission for her diverticulitis. She states she has been having issues with it since . She reports diffuse abdominal pain with nausea. She denies any vomiting. She reports occasional diarrhea. She states she had a bloody bowel movement once on 08/22/18 but has not had any since. She states that morphine and IV antibiotics are all that will help her. She states she will not leave the hospital until she is better. Past Medical History: Reviewed in chart Past Surgical History: Reviewed in chart Social History: Reviewed in chart Family History: Reviewed and noncontributory for presenting illness Allergies: Reviewed, see documented allergy list. REVIEW OF SYSTEMS: CONSTITUTIONAL : No fever No chills No diaphoresis No recent illness EENT: No vision changes No congestion No sore throat CARDIOVASCULAR: No chest pain No palpitations RESPIRATORY: No shortness of breath No cough No difficulty breathing GASTROINTESTINAL: abdominal pain nausea No vomiting diarrhea GENITOURINARY: No dysuria No hematuria No difficulty urinating MUSCULOSKELETAL: No back pain No leg pain No arm pain SKIN: No rashes No lesions LYMPHATIC: No swollen, enlarged glands. NEUROLOGICAL: No lightheadedness No headache No weakness No paresthesias PSYCHIATRIC: No anxiety No depression PHYSICAL EXAMINATION: Vital signs reviewed, nursing noted reviewed. GENERAL: Well-appearing, well-nourished and in no acute distress. HEAD: Atraumatic, normocephalic. EYES: Eyes appear normal, extraocular movements intact, sclera anicteric, conjun ctiva are normal. ENT: nares patent, oropharynx clear without exudates. Moist mucous membranes. NECK: Normal range of motion, supple without lymphadenopathy LUNGS: Breath sounds clear to auscultation bilaterally and equal. No wheezes rales or rhonchi. HEART: Regular rate and rhythm without murmurs ABDOMEN: Distended, soft, diffuse abdominal tenderness, normoactive bowel sounds. No rebound, guarding, or rigidity. No masses appreciated. EXTREMITIES: Nontender, good range of motion, no pitting or edema. NEUROLOGICAL: No focal neurological deficits. Moves all extremities spontaneously Motor and sensory grossly intact on exam. PSYCH: Agitated, rapid pressured speech SKIN: Warm, Dry, normal turgor, no rashes or lesions noted on exposed skin - Related Data Allergies/Adverse Reactions: aspirin Allergy (Severe, Verified 06/03/18 14:16) Anaphylaxis Penicillins Allergy (Severe, Verified 06/03/18 14:16) Anaphylaxis hydrocodone [From Vicodin] Allergy (Intermediate, Verified 06/03/18 14:16) Anaphylaxis Sulfa (Sulfonamide Antibiotics) Allergy (Intermediate, Verified 06/03/18 14:16) iching, nausea codeine Allergy (Mild, Verified 06/03/18 14:16) Diarrhea meperidine HCl [From Demerol] Allergy (Mild, Verified 06/03/18 14:16) heart palpitations ciprofloxacin Adverse Reaction (Verified 08/21/18 14:41) NAUSEA, ITCHING Past Medical History - Social History Smoking Status: Never Smoker Chew tobacco use (# tins/day): No Frequency of alcohol use: None Drug Abuse: None Family History: Arthritis, CAD, CVA, DM, Hyperlipidemia, Hypertension, Malignancy, Thyroid Disfunction Patient has suicidal ideation: No Patient has homicidal ideation: No - Past Medical History Cardiac Medical History: Reports: Hx Hypertension Denies: Hx Congestive Heart Failure, Hx Heart Attack Pulmonary Medical History: Reports: Hx Asthma, Hx Bronchitis, Hx Pneumonia Denies: Hx COPD, Hx Tuberculosis Neurological Medical History: Denies: Hx Cerebrovascular Accident, Hx Seizures Renal/ Medical History: Denies: Hx End Stage Renal Disease, Hx Kidney Stones, Hx Peritoneal Dialysis GI Medical History: Reports: Hx Crohn's Disease, Hx Diverticulitis, Hx Gastroesophageal Reflux Disease, Hx Hiatal Hernia, Hx Irritable Bowel. Denies: Hx Cirrhosis, Hx Hepatitis, Hx Ulcer Musculoskeletal Medical History: Reports Hx Arthritis, Denies Hx Multiple Sclerosis, Reports Hx Musculoskeletal Deformity, Reports Hx Musculoskeletal Trauma Psychiatric Medical History: Reports: Hx Anxiety, Hx Depression Denies: Hx Bipolar Disorder, Hx Schizophrenia Infectious Medical History: Denies: Hx Hepatitis Past Surgical History: Reports: Hx Abdominal Surgery - small intestine removal, Hx Appendectomy, Hx Bowel Surgery - small intestine, Hx Breast Surgery - biopsy, Hx Hysterectomy, Hx Neurologic Surgery - brain tumor removed, Hx Tonsillectomy - Immunizations Immunizations up to date: Yes Hx Diphtheria, Pertussis, Tetanus Vaccination: Yes - 09/2010 Hx Pneumococcal Vaccination: 08/24/10 Physical Exam - Vital signs Vitals: Temp Pulse Resp BP Pulse Ox 98.3 F 73 16 113/90 H 100 09/01/18 14:06 09/01/18 14:06 09/01/18 14:06 09/01/18 14:06 09/01/18 14:06 Course - Re-evaluation Re-evalutation: 09/01/18 15:33 Vitals reviewed. Nursing notes reviewed. Patient presented to the emergency room with orders from Dr. Batres to be admitted to the hospital. Lab work and CT scan will be obtained per his request. Patient was started on Levaquin and Flagyl as recommended by Dr. Batres. She will be admitted to the hospital for further care. 09/01/18 17:07 Patient's care was discussed with Dr. Batres who will follow up on all of the testing that he had recommended be ordered. He is not sure why the patient came to the emergency room and wants her admitted to a medical floor. - Vital Signs Vital signs: Temp Pulse Resp BP Pulse Ox 98.3 F 73 16 113/90 H 100 09/01/18 14:06 09/01/18 14:06 09/01/18 14:06 09/01/18 14:06 09/01/18 14:06 Discharge - Discharge Clinical Impression: Diverticulitis Condition: Stable Disposition: ADMITTED INPATIENT Admitting Provider: Medardo Unit Admitted: Medical Floor
[2018-09-01] MEDS ORDERED: NORMAL SALINE 1000 ML 1,000 ML IV ONE (15:37)
[2018-09-01 17:26] LABS: ABSOLUTE EOSINOPHILS # (AUTO) 0.2 10^3/uL (0.0-0.6); ABSOLUTE LYMPHOCYTES (AUTO) 2.1 10^3/uL (0.5-4.7); ABSOLUTE MONOCYTES (AUTO) 0.7 10^3/uL (0.1-1.4); ABSOLUTE NEUT (AUTO) 5.7 10^3/uL (1.7-8.2); BASOPHILS % (AUTO) 0.2 % (0-2); EOSINOPHILS % (AUTO) 2.5 % (0-6); HEMATOCRIT 39.4 % (36.0-47.0); HEMOGLOBIN 13.4 g/dL (12.0-15.5); LYMPHOCYTES % (AUTO) 23.9 % (13-45); MEAN CORPUSCULAR HEMOGLOBIN 33.3 pg (27.0-33.4); MEAN CORPUSCULAR HGB CONC 33.9 g/dL (32.0-36.0); MEAN CORPUSCULAR VOLUME 98 fl (80-97); MONOCYTES % (AUTO) 7.9 % (3-13); PLATELET COUNT 581 10^3/uL (150-450); RED BLOOD COUNT 4.01 10^6/uL (3.72-5.28); RED CELL DISTRIBUTION WIDTH 13.8 % (11.5-14.0); SEGMENTED NEUTROPHILS % (AUTO) 65.5 % (42-78); TOTAL CELLS COUNTED % (AUTO) 100 %; WHITE BLOOD COUNT 8.7 10^3/uL (4.0-10.5)
[2018-09-01 17:51] LABS: ALANINE AMINOTRANSFERASE 19 U/L (9-52); ALBUMIN 4.6 g/dL (3.5-5.0); ALKALINE PHOSPHATASE 69 U/L (38-126); ANION GAP 10 (5-19); ASPARTATE AMINO TRANSFERASE 40 U/L (14-36); BILIRUBIN,DIRECT 0.3 mg/dL (0.0-0.4); BILIRUBIN,TOTAL 0.6 mg/dL (0.2-1.3); BLOOD UREA NITROGEN 10 mg/dL (7-20); CALCIUM 9.5 mg/dL (8.4-10.2); CARBON DIOXIDE 31 mmol/L (22-30); CHLORIDE 98 mmol/L (98-107); GLUCOSE 93 mg/dL (75-110); POTASSIUM 3.3 mmol/L (3.6-5.0); SODIUM 139.1 mmol/L (137-145); TOTAL PROTEIN 7.7 g/dL (6.3-8.2)
--- NOTE | 2018-09-01 19:12 | RADIOLOGY REPORT (SQ) ---
EXAM DESCRIPTION: CT ABD/PELVIS WITH IV ORAL COMPLETED DATE/TIME: 09/01/2018 6:34 pm REASON FOR STUDY: abdominal pain COMPARISON: 08/17/2018 TECHNIQUE: CT scan of the abdomen and pelvis performed using helical scanning technique with dynamic intravenous contrast injection. With oral contrast. Images reviewed with lung, soft tissue, and bon e windows. Reconstructed coronal and sagittal MPR images reviewed. Delayed images for evaluation of t he urinary system also acquired. All images stored on PACS. All CT scanners at this facility use dose modulation, iterative reconstruction, and/or weight based d osing when appropriate to reduce radiation dose to as low as reasonably achievable (ALARA). [facility]: Dose Right [facility]: CareDose [facility]: Dose Right [facility]: Teradose 4D [facility]: [employer] Technology CONTRAST TYPE AND DOSE: contrast/concentration: Isovue 350.00 mg/ml; Total Contrast Delivered: 66.0 ml; Total Saline Delivered: 65.0 ml RENAL FUNCTION: Not recorded RADIATION DOSE: CT Rad equipment meets quality standard of care and radiation dose reduction techniq ues were employed. CTDIvol: 5.5 - 7.4 mGy. DLP: 642 mGy-cm.. LIMITATIONS: None. FINDINGS: LOWER CHEST: No significant findings. No nodules or infiltrates. LIVER: Normal size. No masses. No dilated ducts. SPLEEN: Normal size. No focal lesions. PANCREAS: No masses. No significant calcifications. No adjacent inflammation or peripancreatic fluid collections. Pancreatic duct not dilated. GALLBLADDER: No identified stones by CT criteria. No inflammatory changes to suggest cholecystitis. ADRENAL GLANDS: No significant masses or asymmetry. RIGHT KIDNEY AND URETER: No solid masses. No significant calcifications. No hydronephrosis or hyd roureter. LEFT KIDNEY AND URETER: No solid masses. No significant calcifications. No hydronephrosis or hydr oureter. AORTA AND VESSELS: No aneurysm. No dissection. Renal arteries, SMA, celiac without stenosis. RETROPERITONEUM: No retroperitoneal adenopathy, hemorrhage or masses. BOWEL AND PERITONEAL CAVITY: No masses or inflammatory changes. No free fluid or peritoneal masses. APPENDIX: Not visualized. PELVIS: Massive bladder distention to the level of the umbilicus. ABDOMINAL WALL: No masses. No hernias. BONES: No significant or acute findings. OTHER: No other significant finding. IMPRESSION: Resolution of the diverticulitis. Massive bladder distention to the level of the umbilicus. TECHNICAL DOCUMENTATION: JOB ID: [id number] Quality ID # [id number]: Final reports with documentation of one or more dose reduction techniques (e.g., Au tomated exposure control, adjustment of the mA and/or kV according to patient size, use of iterative reconstruction technique) 2010 [employer]- All Rights Reserved Reading location - IP/workstation name: [email or web address]
[2018-09-01] MEDS ORDERED: METRONIDAZOLE 500 MG/NS RTU 500 MG/100 ML RTUPB IV SCH ×2 (20:00→22:00)
[2018-09-01] MEDS: HYDROMORPHONE HCL INJ/PF 2 MG/ML AMPULE IV PRN (21:17)
--- NOTE | 2018-09-01 21:18 | PDOC H&P ---
History of Present Illness Admission Date/PCP: 09/01/18 17:19 ARACELI CORTEZ MD History of Present Illness: MICHAEL CAMEJO is a 67 year old female, she was recently admitted for the [facility] of acute diverticulitis involving the sigmoid colon, she came to the office for evaluation of abdominal pain, she was examined in the office, the abdomen was distended, it was tender to touch, I was concerned that she may have recurrent diverticulitis or other intra-abdominal pathology. She was admitted directly from the office to the hospital but no bed was available so she was directed to the emergency room by the nursing paper products supervisor. CT scan of the abdomen and pelvis with IV contrast was obtained, it demonstrated resolution of the diverticulitis, there was massive bladder distention to the level of the umbilicus. The etiology of the urinary retention is not clear, a Carmona catheter was inserted, over 900 cc of urine was collected Past Medical History Cardiac Medical History: Reports: Hypertension Pulmonary Medical History: Reports: Asthma GI Medical History: Reports: Diverticulitis, Gastroesophageal Reflux Disease Musculoskeltal Medical History: Reports: Arthritis Psychiatric Medical History: Reports: Depression Hematology: Reports: Anemia Past Surgical History Past Surgical History: Reports: Appendectomy, Hysterectomy, Tonsillectomy Social History Smoking Status: Never Smoker Frequency of Alcohol Use: None Hx Recreational Drug Use: No Drugs: None Hx Prescription Drug Abuse: No Family History Family History: Arthritis, CAD, CVA, DM, Hyperlipidemia, Hypertension, Malignancy, Thyroid Disfunction Parental Family History Reviewed: Yes Children Family History Reviewed: Yes Sibling(s) Family History Reviewed.: Yes Medication/Allergy Home Medications: Acetaminophen with Codeine [Tylenol #3 Tablet] 1 each PO Q8HP PRN 08/17/18 Alprazolam [Xanax 0.5 mg Tablet] 0.5 mg PO HSP PRN 08/17/18 Cetirizine HCl [Zyrtec 10 mg Tablet] 10 mg PO DAILYP PRN 08/17/18 Cyanocobalamin (Vitamin B-12) [Vitamin B-12 Inj 1000 Mcg/1 ml Vial] 1,000 mcg IM TH@1000 08/17/18 Dexlansoprazole [Dexilant 60 mg Capsule] 60 mg PO DAILYP PRN 08/17/18 Diltiazem HCl [Cardizem Cd 120 mg Capsule] 120 mg PO Q12 08/17/18 Ergocalciferol (Vitamin D2) [Drisdol 50,000 Unit (1.25MG) Capsule] 50,000 unit PO JORGE@1000 08/17/18 Hydroxyzine Pamoate [Vistaril 25 mg Capsule] 25 mg PO Q8HP PRN 08/17/18 Ibandronate Sodium [Boniva] 150 mg PO .QMONTHLY 08/17/18 Iron Ps Complex/B12/Folic Acid [Ferrex 150 Forte Capsule] 150 mg PO DAILY 08/17/18 Meclizine HCl [Antivert 25 mg Tablet] 25 mg PO TIDP PRN 08/17/18 Meloxicam [Mobic] 7.5 mg PO DAILY 08/17/18 Nystatin [Mycostatin Cream] 1 applic TP BIDP PRN 08/17/18 Triamcinolone Acetonide [Aristocort 0.5% Cream 15 gm] 1 applic TP BIDP PRN 08/17/18 Allergies/Adverse Reactions: aspirin Allergy (Severe, Verified 06/03/18 14:16) Anaphylaxis Penicillins Allergy (Severe, Verified 06/03/18 14:16) Anaphylaxis hydrocodone [From Vicodin] Allergy (Intermediate, Verified 06/03/18 14:16) Anaphylaxis Sulfa (Sulfonamide Antibiotics) Allergy (Intermediate, Verified 06/03/18 14:16) iching, nausea codeine Allergy (Mild, Verified 06/03/18 14:16) Diarrhea meperidine HCl [From Demerol] Allergy (Mild, Verified 06/03/18 14:16) heart palpitations ciprofloxacin Adverse Reaction (Verified 08/21/18 14:41) NAUSEA, ITCHING Review of Systems Constitutional: ABSENT: chills, fever(s), headache(s), weight gain, weight loss Eyes: ABSENT: visual disturbances Ears: ABSENT: hearing changes Cardiovascular: ABSENT: chest pain, dyspnea on exertion, edema, orthropnea, palpitations Respiratory: ABSENT: cough, hemoptysis Gastrointestinal: PRESENT: abdominal pain Genitourinary: ABSENT: dysuria, hematuria Musculoskeletal: ABSENT: joint swelling Integumentary: ABSENT: rash, wounds Neurological: ABSENT: abnormal gait, abnormal speech, confusion, dizziness, focal weakness, syncope Psychiatric: ABSENT: anxiety, depression, homidical ideation, suicidal ideation Endocrine: ABSENT: cold intolerance, heat intolerance, menstrual abnormalities, polydipsia, polyuria Hematologic/Lymphatic: ABSENT: easy bleeding, easy bruising, lymphadenopathy Physical Exam Vital Signs: Temp Pulse Resp BP Pulse Ox 98.3 F 73 16 113/90 H 100 09/01/18 14:06 09/01/18 14:06 09/01/18 14:06 09/01/18 14:06 09/01/18 14:06 Intake & Output 08/31/18 09/01/18 09/02/18 06:59 06:59 06:59 Weight 57.7 kg General appearance: PRESENT: no acute distress Head exam: PRESENT: atraumatic, normocephalic Eye exam: PRESENT: PERRLA Ear exam: PRESENT: normal external ear exam Neck exam: PRESENT: full ROM Cardiovascular exam: PRESENT: +S1, +S2 Pulses: PRESENT: normal dorsalis pedis pul, +2 pedal pulses bilateral Vascular exam: PRESENT: normal capillary refill GI/Abdominal exam: PRESENT: distended, tenderness Rectal exam: PRESENT: deferred Neurological exam: PRESENT: alert, CN II-XII grossly intact Skin exam: PRESENT: dry, intact, warm Results Laboratory Results: 09/01/18 16:45 09/01/18 16:45 09/01/18 09/01/18 16:45 16:45 WBC 8.7 RBC 4.01 Hgb 13.4 Hct 39.4 MCV 98 H MCH 33.3 MCHC 33.9 RDW 13.8 Plt Count 581 H Seg Neutrophils % 65.5 Lymphocytes % 23.9 Monocytes % 7.9 Eosinophils % 2.5 Basophils % 0.2 Absolute Neutrophils 5.7 Absolute Lymphocytes 2.1 Absolute Monocytes 0.7 Absolute Eosinophils 0.2 Absolute Basophils 0.0 Sodium 139.1 Potassium 3.3 L Chloride 98 Carbon Dioxide 31 H Anion Gap 10 BUN 10 Creatinine 0.56 Est GFR ( Amer) > 60 Est GFR (Non-Af Amer) > 60 Glucose 93 Calcium 9.5 Total Bilirubin 0.6 AST 40 H ALT 19 Alkaline Phosphatase 69 Total Protein 7.7 Albumin 4.6 Impressions: Abdomen/Pelvis CT 09/01/18 15:31 IMPRESSION: Resolution of the diverticulitis. Massive bladder distention to the level of the umbilicus. Assessment & Plan - Diagnosis (1) Acute urinary retention Is this a current diagnosis for this admission?: Yes Plan: She has acute urinary retention, the exact etiology is not clear, a Carmona catheter was inserted, over 900 cc of urine was collected.
[2018-09-01] MEDS: POTASSI CL 20 MEQ/D5NS 1L 20 MEQ/1,000 ML RTUINJ IV PRN (21:19)
[2018-09-01 21:40] LABS: ALANINE AMINOTRANSFERASE 21 U/L (9-52); ALBUMIN 4.2 g/dL (3.5-5.0); ALKALINE PHOSPHATASE 56 U/L (38-126); ASPARTATE AMINO TRANSFERASE 31 U/L (14-36); BILIRUBIN,DIRECT 0.3 mg/dL (0.0-0.4); BILIRUBIN,TOTAL 0.8 mg/dL (0.2-1.3); TOTAL PROTEIN 7.1 g/dL (6.3-8.2)
[2018-09-02] MEDS: HYDROMORPHONE HCL INJ/PF 2 MG/ML AMPULE IV PRN ×2 (03:40→11:28)
[2018-09-02 04:39] LABS: APPEARANCE,URINE SLIGHTLY-CLOUDY; BILIRUBIN,URINE NEGATIVE (NEGATIVE); COLOR,URINE STRAW; GLUCOSE, URINE NEGATIVE (NEGATIVE); KETONES,URINE NEGATIVE (NEGATIVE); LEUKOCYTE ESTERASE,URINE NEGATIVE (NEGATIVE); NITRITE,URINE NEGATIVE (NEGATIVE); PROTEIN,URINE NEGATIVE (NEGATIVE); URINE SPECIFIC GRAVITY 1.013; UROBILINOGEN,URINE NEGATIVE mg/dL (<2.0)
[2018-09-02] MEDS ORDERED: LEVOFLOXACIN 750 MG/D5W RTU 750 MG/150 ML RTUPB IV SCH (10:00)
[2018-09-02] MEDS: POTASSI CL 20 MEQ/D5NS 1L 20 MEQ/1,000 ML RTUINJ IV PRN (10:02)
[2018-09-02] MEDS ORDERED: CETIRIZINE 10 MG TABLET PO PRN (15:24)
[2018-09-02] MEDS ORDERED: ALPRAZOLAM 0.5 MG TABLET PO PRN (15:24)
[2018-09-02] MEDS ORDERED: (PENDING PHARMACY ID) (Iron Ps Complex/B12/Folic Acid [Ferrex 150 Forte Capsule] 150 MG) PO SCH (15:30)
--- NOTE | 2018-09-02 15:31 | PDOC PROGRESS REPORT ---
Subjective Progress Note for:: 09/02/18 Subjective:: Patient was admitted yesterday for the management of acute retention of urine, the etiology is not clear. I discussed with the patient the diagnosis, she felt that her symptoms was due to acute diverticulitis, advised her that the acute diverticulitis is resolved. She presently has a Carmona catheter, this will be discontinued, she will be observed for the next 24 hours to ensure there is no acute retention of urine. She is asking for pain medication, Dilaudid, this is not indicated at this time she was prescribed Dilaudid yesterday because of the acute abdominal pain the etiology of the pain was not clearly time, it is now obvious that the etiology of the pain is from urinary retention. Reason For Visit: DIVERTICULITIS Physical Exam Vital Signs: Temp Pulse Resp BP Pulse Ox 98.6 F 61 12 138/58 H 99 09/02/18 12:00 09/02/18 12:00 09/02/18 12:00 09/02/18 12:00 09/02/18 12:00 Intake & Output 09/01/18 09/02/18 09/03/18 06:59 06:59 06:59 Intake Total 1150 1000 Output Total 2075 Balance -925 1000 Weight 57.1 kg General appearance: PRESENT: no acute distress Head exam: PRESENT: atraumatic Eye exam: PRESENT: PERRLA Ear exam: PRESENT: normal external ear exam Neck exam: PRESENT: full ROM Respiratory exam: PRESENT: clear to auscultation franky Cardiovascular exam: PRESENT: RRR, +S1, +S2 Vascular exam: PRESENT: normal capillary refill GI/Abdominal exam: PRESENT: normal bowel sounds, soft Rectal exam: PRESENT: deferred Neurological exam: PRESENT: alert, CN II-XII grossly intact Psychiatric exam: PRESENT: appropriate affect, normal mood Skin exam: PRESENT: dry, intact, warm. ABSENT: cyanosis, rash Results Laboratory Results: 09/01/18 16:45 09/01/18 16:45 09/01/18 09/01/18 09/01/18 16:45 16:45 21:00 WBC 8.7 RBC 4.01 Hgb 13.4 Hct 39.4 MCV 98 H MCH 33.3 MCHC 33.9 RDW 13.8 Plt Count 581 H Seg Neutrophils % 65.5 Lymphocytes % 23.9 Monocytes % 7.9 Eosinophils % 2.5 Basophils % 0.2 Absolute Neutrophils 5.7 Absolute Lymphocytes 2.1 Absolute Monocytes 0.7 Absolute Eosinophils 0.2 Absolute Basophils 0.0 Sodium 139.1 Potassium 3.3 L Chloride 98 Carbon Dioxide 31 H Anion Gap 10 BUN 10 Creatinine 0.56 Est GFR ( Amer) > 60 Est GFR (Non-Af Amer) > 60 Glucose 93 Calcium 9.5 Total Bilirubin 0.6 0.8 AST 40 H 31 ALT 19 21 Alkaline Phosphatase 69 56 Total Protein 7.7 7.1 Albumin 4.6 4.2 Urine Color Urine Appearance Urine pH Ur Specific Faxon Urine Protein Urine Glucose (UA) Urine Ketones Urine Blood Urine Nitrite Ur Leukocyte Esterase Urine WBC (Auto) Urine RBC (Auto) 09/02/18 04:30 WBC RBC Hgb Hct MCV MCH MCHC RDW Plt Count Seg Neutrophils % Lymphocytes % Monocytes % Eosinophils % Basophils % Absolute Neutrophils Absolute Lymphocytes Absolute Monocytes Absolute Eosinophils Absolute Basophils Sodium Potassium Chloride Carbon Dioxide Anion Gap BUN Creatinine Est GFR ( Amer) Est GFR (Non-Af Amer) Glucose Calcium Total Bilirubin AST ALT Alkaline Phosphatase Total Protein Albumin Urine Color STRAW Urine Appearance SLIGHTLY-CLOUDY Urine pH 8.0 Ur Specific Faxon 1.013 Urine Protein NEGATIVE Urine Glucose (UA) NEGATIVE Urine Ketones NEGATIVE Urine Blood NEGATIVE Urine Nitrite NEGATIVE Ur Leukocyte Esterase NEGATIVE Urine WBC (Auto) 2 Urine RBC (Auto) 1 Impressions: Abdomen/Pelvis CT 09/01/18 15:31 IMPRESSION: Resolution of the diverticulitis. Massive bladder distention to the level of the umbilicus. Assessment & Plan - Diagnosis (1) Acute urinary retention Is this a current diagnosis for this admission?: Yes Plan: 1 discontinue Carmona catheter. 2. Discontinue Dilaudid. 3. Watch for 24 hours for any other urinary retention 4 This plan of action was explained to patient
[2018-09-02] MEDS ORDERED: LANSOPRAZOLE 30 MG TAB.RAP.DR PO PRN (16:29)
[2018-09-02 22:27] LABS: ALANINE AMINOTRANSFERASE 22 U/L (9-52); ALBUMIN 3.5 g/dL (3.5-5.0); ALKALINE PHOSPHATASE 54 U/L (38-126); ANION GAP 8 (5-19); ASPARTATE AMINO TRANSFERASE 13 U/L (14-36); BILIRUBIN,DIRECT 0.4 mg/dL (0.0-0.4); BILIRUBIN,TOTAL 0.6 mg/dL (0.2-1.3); BLOOD UREA NITROGEN 9 mg/dL (7-20); CALCIUM 9.1 mg/dL (8.4-10.2); CARBON DIOXIDE 27 mmol/L (22-30); CHLORIDE 105 mmol/L (98-107); GLUCOSE 110 mg/dL (75-110); POTASSIUM 4.3 mmol/L (3.6-5.0); SODIUM 140.1 mmol/L (137-145); TOTAL PROTEIN 5.9 g/dL (6.3-8.2)
[2018-09-03] MEDS ORDERED: ERGOCALCIFEROL (VITAMIN D2) 50000 UNIT (1.25 MG) CAPSULE PO SCH (10:00)
[2018-09-03] MEDS: IRON POLYSACCHARIDES COMPLEX 150 MG CAPSULE PO SCH (10:58)
--- NOTE | 2018-09-03 15:02 | PDOC DISCHARGE SUMMARY ---
General - Admit/Disc Date/PCP Admission Date/Primary Care Provider: 09/01/18 17:19 ARACELI CORTEZ MD Discharge Date: 09/03/18 - Discharge Diagnosis (1) Acute urinary retention Is this a current diagnosis for this admission?: Yes - Additional Information Prescriptions: Cetirizine HCl [Zyrtec 10 mg Tablet] 10 mg PO DAILYP PRN #90 tablet PRN Reason: ALLERGIES Cyanocobalamin (Vitamin B-12) [Vitamin B-12 Inj 1000 Mcg/1 ml Vial] 1,000 mcg IM TH@1000 #12 vial Dexlansoprazole [Dexilant 60 mg Capsule] 60 mg PO DAILYP PRN #30 cap.bp PRN Reason: Heartburn Dicyclomine HCl [Bentyl 20 mg Tablet] 20 mg PO Q6 #120 tablet Ergocalciferol (Vitamin D2) [Drisdol 50,000 unit (1.25MG) Capsule] 50,000 unit PO JORGE@1000 #12 capsule Iron Ps Complex/B12/Folic Acid [Ferrex 150 Forte Capsule] 150 mg PO DAILY #90 capsule Home Medications: Alprazolam [Xanax 0.5 mg Tablet] 0.5 mg PO HSP PRN 08/17/18 Diltiazem HCl [Cardizem Cd 120 mg Capsule] 120 mg PO Q12 08/17/18 Ibandronate Sodium [Boniva] 150 mg PO .QMONTHLY 08/17/18 Cetirizine HCl [Zyrtec 10 mg Tablet] 10 mg PO DAILYP PRN #90 tablet 09/03/18 Cyanocobalamin (Vitamin B-12) [Vitamin B-12 Inj 1000 Mcg/1 ml Vial] 1,000 mcg IM TH@1000 #12 vial 09/03/18 Dexlansoprazole [Dexilant 60 mg Capsule] 60 mg PO DAILYP PRN #30 bp 09/03/18 Dicyclomine HCl [Bentyl 20 mg Tablet] 20 mg PO Q6 #120 tablet 09/03/18 Ergocalciferol (Vitamin D2) [Drisdol 50,000 unit (1.25MG) Capsule] 50,000 unit PO JORGE@1000 #12 capsule 09/03/18 Iron Ps Complex/B12/Folic Acid [Ferrex 150 Forte Capsule] 150 mg PO DAILY #90 capsule 09/03/18 History of Present Illness History of Present Illness: MICHAEL CAMEJO is a 67 year old female, she was recently admitted for the manag ement of acute diverticulitis involving the sigmoid colon, she came to the office for evaluation of abdominal pain, she was examined in the office, the abdomen was distended, it was tender to touch, I was concerned that she may have recurrent diverticulitis or other intra-abdominal pathology. She was admitted directly from the office to the hospital but no bed was available so she was directed to the emergency room by the nursing supervisor [employer] [facility]. CT scan of the abdomen and pelvis with IV contrast was obtained, it demonstrated resolution of the diverticulitis, there was massive bladder distention to the level of the umbilicus. The etiology of the urinary retention is not clear, a Carmona catheter was inserted, over 900 cc of urine was collected Hospital Course Hospital Course: Patient was admitted for the management of abdominal pain, it was felt that she had acute diverticulitis, CT scan of the pelvis and abdomen demonstrated distended bladder up to the umbilicus, a Carmona catheter was inserted, over a liter of urine was collected she felt much relieved the exact etiology of the urinary test was not clear. The Carmona catheter was removed yesterday she was watched for 24 hours there was no recurrence of urinary retention she is very dramatic,always requesting for different therapeutic options Physical Exam Vital Signs: Temp Pulse Resp BP Pulse Ox 98.8 F 115 H 19 113/71 100 09/03/18 11:35 09/03/18 11:35 09/03/18 11:35 09/03/18 07:50 09/03/18 11:35 Intake & Output 09/02/18 09/03/18 09/04/18 06:59 06:59 06:59 Intake Total 1150 2892 Output Total 2075 2450 Balance -925 442 Weight 57.1 kg 58.6 kg General appearance: PRESENT: no acute distress, well-developed, well-nourished Head exam: PRESENT: atraumatic, normocephalic Eye exam: PRESENT: conjunctiva pink, EOMI, PERRLA Ear exam: PRESENT: normal external ear exam Mouth exam: PRESENT: moist, tongue midline Neck exam: PRESENT: full ROM Respiratory exam: PRESENT: clear to auscultation franky Cardiovascular exam: PRESENT: RRR, +S1, +S2 Pulses: PRESENT: normal dorsalis pedis pul, +2 pedal pulses bilateral Vascular exam: PRESENT: normal capillary refill GI/Abdominal exam: PRESENT: normal bowel sounds, soft Rectal exam: PRESENT: deferred Neurological exam: PRESENT: alert, awake, oriented to person, oriented to place, oriented to time, oriented to situation, CN II-XII grossly intact Psychiatric exam: PRESENT: appropriate affect, normal mood Skin exam: PRESENT: dry, intact, warm Results Laboratory Results: 09/01/18 16:45 09/02/18 22:02 09/02/18 22:02 Sodium 140.1 Potassium 4.3 Chloride 105 Carbon Dioxide 27 Anion Gap 8 BUN 9 Creatinine 0.52 Est GFR ( Amer) > 60 Est GFR (Non-Af Amer) > 60 Glucose 110 Calcium 9.1 Total Bilirubin 0.6 AST 13 L ALT 22 Alkaline Phosphatase 54 Total Protein 5.9 L Albumin 3.5 Impressions: Abdomen/Pelvis CT 09/01/18 15:31 IMPRESSION: Resolution of the diverticulitis. Massive bladder distention to the level of the umbilicus. Qualifiers - * PATIENT BEING DISCHARGED WITH ANY OF THE FOLLOWING DIAGNOSIS: No
[2018-09-03] MEDS: DICYCLOMINE HCL 20 MG TABLET PO SCH ×2 (17:28→23:39)
[2018-09-04] MEDS: DICYCLOMINE HCL 20 MG TABLET PO SCH ×2 (06:10→11:30)
[2018-09-04] MEDS: IRON POLYSACCHARIDES COMPLEX 150 MG CAPSULE PO SCH (11:30)
[2018-09-04 12:08] VITALS: BP 149/60
[2018-09-07] MEDS ORDERED: CYANOCOBALAMIN (VITAMIN B-12) INJ 1000 MCG/1 ML VIAL IM SCH (10:00)
== END 2018-09-04 14:35 | disposition home or self-care (01) | DRG 696 ==
LOC: ER 13:41 → EH 17:19 → 4W 20:05
PROVIDERS: ADMIT Internal Medicine; ATTEND Internal Medicine
DX: R33.9 Retention of urine, unspecified (principal); N32.89 Other specified disorders of bladder; I10 Essential (primary) hypertension; J45.909 Unspecified asthma, uncomplicated; K21.9 Gastro-esophageal reflux disease without esophagitis; M19.90 Unspecified osteoarthritis, unspecified site; F32.9 Major depressive disorder, single episode, unspecified; D64.9 Anemia, unspecified; Z79.899 Other long term (current) drug therapy; Z90.710 Acquired absence of both cervix and uterus; Z88.6 Allergy status to analgesic agent; Z88.3 Allergy status to other anti-infective agents; Z88.0 Allergy status to penicillin; Z88.2 Allergy status to sulfonamides
CPT/HCPCS: 36415; 74177; 80053; 80076; 81001; 85025; 87040; 96365; 96368; 96375; 99285; J1170; J1956; J3480; J3490; J7030

== ENCOUNTER 2018-10-14 14:50 | Emergency (ER) | payer MEDICARE, MEDICAID ==
[2018-10-14 15:00] VITALS: BP 126/62
[2018-10-14] MEDS ORDERED: KETOROLAC TROMETHAMINE INJ/PF 30 MG/1 ML SDV IM ONE (15:36)
--- NOTE | 2018-10-14 15:42 | ER Document Report ---
ED General - General Chief Complaint: Rib Pain Stated Complaint: RIB PAIN Time Seen by Provider: 10/14/18 15:06 Primary Care Provider: ARACELI CORTEZ MD [Primary Care Provider] - Follow up as needed Mode of Arrival: Medic Information source: Patient Notes: 67-year-old female presents to ED for complaint of left rib pain times 2 days. Patient states she has been coughing with congestion. She states that she went to EMS and they brought her to the emergency room because she was having so much pain and difficulty and her blood pressure was high and she has been to see Dr. Lin and he put braces on both knees and a Rakan wrap on her arm and did injections in her joints and out of her ribs are hurting in the EMS told her that she might of pulled a muscle. TRAVEL OUTSIDE OF THE [place] IN LAST 30 DAYS: No COUNTRY TRAVELED TO/FROM: [facility] Onset: Other Onset/Duration: Intermittent - 4 days Quality of pain: Achy, Burning Severity: Moderate Pain Level: 3 Associated symptoms: Other - Left rib pain worse with deep breath or palpation Exacerbated by: Movement, Deep breathing, Other Relieved by: Denies Similar symptoms previously: Yes Recently seen / treated by doctor: Yes - Related Data Allergies/Adverse Reactions: aspirin Allergy (Severe, Verified 10/14/18 14:51) Anaphylaxis Penicillins Allergy (Severe, Verified 10/14/18 14:51) Anaphylaxis hydrocodone [From Vicodin] Allergy (Intermediate, Verified 10/14/18 14:51) Anaphylaxis Sulfa (Sulfonamide Antibiotics) Allergy (Intermediate, Verified 10/14/18 14:51) iching, nausea codeine Allergy (Mild, Verified 10/14/18 14:51) Diarrhea meperidine HCl [From Demerol] Allergy (Mild, Verified 10/14/18 14:51) heart palpitations ciprofloxacin Adverse Reaction (Verified 10/14/18 14:51) NAUSEA, ITCHING Past Medical History - General Information source: Patient - Social History Smoking Status: Never Smoker Chew tobacco use (# tins/day): No Frequency of alcohol use: None Drug Abuse: None Family History: Arthritis, CAD, CVA, DM, Hyperlipidemia, Hypertension, Malignancy, Thyroid Disfunction Patient has suicidal ideation: No Patient has homicidal ideation: No - Past Medical History Cardiac Medical History: Reports: Hx Hypertension Pulmonary Medical History: Reports: Hx Asthma, Hx Bronchitis, Hx Pneumonia EENT Medical History: Reports: None Neurological Medical History: Reports: None Endocrine Medical History: Reports: None Renal/ Medical History: Reports: None Malignancy Medical History: Reports: None GI Medical History: Reports: Hx Crohn's Disease, Hx Diverticulitis, Hx Gastroesophageal Reflux Disease, Hx Hiatal Hernia, Hx Irritable Bowel Musculoskeletal Medical History: Reports Hx Arthritis, Reports Hx Musculoskeletal Deformity, Reports Hx Musculoskeletal Trauma Skin Medical History: Reports None Psychiatric Medical History: Reports: Hx Anxiety, Hx Depression Traumatic Medical History: Reports: None Infectious Medical History: Reports: None Past Surgical History: Reports: Hx Abdominal Surgery - small intestine removal, Hx Appendectomy, Hx Bowel Surgery - small intestine, Hx Breast Surgery - biopsy, Hx Hysterectomy, Hx Neurologic Surgery - brain tumor removed, Hx Tonsillectomy - Immunizations Immunizations up to date: Yes Hx Diphtheria, Pertussis, Tetanus Vaccination: Yes - 09/2010 Hx Pneumococcal Vaccination: 08/24/10 Review of Systems - Review of Systems Constitutional: No symptoms reported EENT: Nose discharge Cardiovascular: No symptoms reported Respiratory: No symptoms reported Gastrointestinal: No symptoms reported Genitourinary: No symptoms reported Female Genitourinary: No symptoms reported Musculoskeletal: No symptoms reported Skin: No symptoms reported Hematologic/Lymphatic: No symptoms reported Neurological/Psychological: No symptoms reported -: Yes All other systems reviewed and negative Physical Exam - Vital signs Vitals: Temp Pulse Resp BP Pulse Ox 97.8 F 83 18 126/62 H 99 10/14/18 14:57 10/14/18 14:57 10/14/18 14:57 10/14/18 14:57 10/14/18 14:57 Interpretation: Normal - General General appearance: Appears well, Alert - HEENT Head: Normocephalic, Atraumatic Eyes: Normal Pupils: PERRL Ears: Normal External canal: Normal Tympanic membrane: Normal Nasal: Normal Mouth/Lips: Normal Mucous membranes: Normal Pharynx: Normal Neck: Normal - Respiratory Respiratory status: No respiratory distress Chest status: Tender, Pain on movement, Pain with cough, Pain with deep breathing Breath sounds: Normal Chest palpation: Normal - Cardiovascular Rhythm: Regular Heart sounds: Normal auscultation Murmur: No - Abdominal Inspection: Normal Distension: No distension Bowel sounds: Normal Tenderness: Nontender Organomegaly: No organomegaly - Back Back: Normal, Nontender - Extremities General upper extremity: Normal inspection, Nontender, Normal color, Normal ROM, Normal temperature General lower extremity: Normal inspection, Nontender, Normal color, Normal ROM, Normal temperature, Normal weight bearing. No: Guille's sign - Neurological Neuro grossly intact: Yes Cognition: Normal Orientation: AAOx4 Ji Coma Scale Eye Opening: Spontaneous Ji Coma Scale Verbal: Oriented Ji Coma Scale Motor: Obeys Commands [place] Coma Scale Total: 15 Speech: Normal Motor strength normal: LUE, RUE, LLE, RLE Sensory: Normal - Psychological Associated symptoms: Normal affect, Normal mood - Skin Skin Temperature: Warm Skin Moisture: Dry Skin Color: Normal Course - Re-evaluation Re-evalutation: 10/14/18 16:15 Patient was treated with a sling today because she states that the brace that Dr. Lin put on her left arm is making her ribs hurt worse. She states she has been coughing and thinks she is pulled a muscle from the cough and and the injury from when she fell injuring her arm. The chest x-ray is negative for any bony abnormalities any broken ribs or any pneumothorax or pneumonia. Patient was instructed that the chest x-ray is negative and which she was given Toradol in the emergency room for the discomfort from the inflammation in her ribs. Patient is very tender to touch on her left ribs and when she takes a deep breath. She states it hurts when her arm is moved or when she moves any of the muscles on the left chest area. Patient was instructed to follow-up with her primary care doctor. - Vital Signs Vital signs: Temp Pulse Resp BP Pulse Ox 97.8 F 83 18 126/62 H 99 10/14/18 14:57 10/14/18 14:57 10/14/18 14:57 10/14/18 14:57 10/14/18 14:57 - Diagnostic Test Radiology reviewed: Image reviewed, Reports reviewed Procedures - Immobilization Left Arm Time completed: 16:15 Immobilizer type: Sling Performed by: PCT Post-Proc Neuro Vasc Exam: Normal Alignment checked and good: Yes Discharge - Discharge Clinical Impression: Rib pain on left side Condition: Stable Disposition: HOME, SELF-CARE Additional Instructions: Rib Contusion You have been diagnosed as having bruised ribs. It will usually take a few weeks for these injured ribs to heal. You should cough or take a deep breath at least every hour or two to prevent lung complications. You should not engage in any strenuous physical activity until released by your physician. The usual rule is "if it hurts, don't do it." Return if you develop any of the following: (1) Fever or chills. (2) Persistent cough, coughing up blood, or shortness of breath. (3) Increasing pain. (4) Weakness, lightheadedness, or fainting. UPPER RESPIRATORY ILLNESS: You have a viral infection of the respiratory passages -- a "cold." This common infection causes nasal congestion, drainage, and often sore throat and cough. It is highly contagious. The disease usually lasts about 10 to 14 days. There is no "cure" for the viral infection -- it must run its course. If there is a complication, such as bacterial infection in the nose, sinuses, middle ear, or bronchial tubes, antibiotics may be required. The antibiotics won't affect the virus. Drink plenty of fluids. A humidifier may help. An expectorant medication or decongestant may make you more comfortable. Use acetaminophen or ibuprofen for fever or aches. See the doctor if fever persists over two days, if there is any significant worsening of your symptoms, or if you simply fail to improve as expected. Toradol Injection You have been given an injection of ketorolac tromethamine (Toradol). This is an excellent, safe drug for pain control. It also has potent antiinflammatory action. You should have significant pain relief within about one hour. Toradol is not addicting and is non-sedating. It does not interfere with driving or work. Call or return if you develop itching, hives, shortness of breath, or rash. You were given a sling today to help support your left arm that she fell and injured recently and you have seen the orthopedic for. You state the weight of the arm is making your left ribs hurt. The sling should keep the muscle from hanging down and help with your rib pain. USE OF ACETAMINOPHEN (Tylenol): Acetaminophen may be taken for pain relief or fever control. It's much safer than aspirin, offering a wider range of "safe" dosages. It is safe during . Some brand names are Tylenol, Panadol, Datril, Anacin 3, Tempra, and Liquiprin. Acetaminophen can be repeated every four hours. The following are maximum recommended dosages: >89 pounds or adults 650 mg to 900 mg Acetaminophen can be repeated every four hours. Maximum dose not to exceed 4000 mg a day. FOLLOW-UP CARE: If you have been referred to a physician for follow-up care, call the physicians office for an appointment as you were instructed or within the next two days. If you experience worsening or a significant change in your symptoms, notify the physician immediately or return to the Emergency Department at any time for re-evaluation. Referrals: ARACELI CORTEZ MD [Primary Care Provider] - Follow up as needed
--- NOTE | 2018-10-14 16:03 | RADIOLOGY REPORT (SQ) ---
EXAM DESCRIPTION: CHEST 2 VIEWS COMPLETED DATE/TIME: 10/14/2018 3:49 pm REASON FOR STUDY: right rib pain COMPARISON: 04/17/2018 EXAM PARAMETERS: NUMBER OF VIEWS: two views TECHNIQUE: Digital Frontal and Lateral radiographic views of the chest acquired. RADIATION DOSE: NA LIMITATIONS: none FINDINGS: LUNGS AND PLEURA: No opacities, masses or pneumothorax. No pleural effusion. MEDIASTINUM AND HILAR STRUCTURES: No masses or contour abnormalities. HEART AND VASCULAR STRUCTURES: Heart normal size. No evidence for failure. BONES: No acute findings. HARDWARE: None in the chest. OTHER: No other significant finding. IMPRESSION: NO ACUTE RADIOGRAPHIC FINDING IN THE CHEST. TECHNICAL DOCUMENTATION: JOB ID: [id number] [employer]- All Rights Reserved Reading location - IP/workstation name: [email or web address]
== END 2018-10-14 16:22 | disposition home or self-care (01) ==
LOC: ER 14:50
DX: R07.81 Pleurodynia (principal); J98.8 Other specified respiratory disorders; S49.90XA Unspecified injury of shoulder and upper arm, unspecified arm, initial encounter; W19.XXXA Unspecified fall, initial encounter; R05 Cough; R09.89 Other specified symptoms and signs involving the circulatory and respiratory systems; J45.909 Unspecified asthma, uncomplicated; I10 Essential (primary) hypertension; Z87.01 Personal history of pneumonia (recurrent); Z88.2 Allergy status to sulfonamides; Z87.892 Personal history of anaphylaxis; Z88.6 Allergy status to analgesic agent; Z88.0 Allergy status to penicillin; Z88.5 Allergy status to narcotic agent
CPT/HCPCS: 99283; 96372; 71046; J1885

== ENCOUNTER 2018-11-25 16:52 | Emergency (ER) | payer MEDICARE, MEDICAID ==
[2018-11-25] MEDS ORDERED: METOCLOPRAMIDE HCL INJ/PF 10 MG/2 ML SDV IV ONE (17:18)
[2018-11-25] MEDS ORDERED: NORMAL SALINE 1000 ML 1,000 ML IV ONE (17:18)
--- NOTE | 2018-11-25 17:20 | ER Document Report ---
ED Medical Screen (RME) - General Chief Complaint: Nausea Stated Complaint: NAUSEA Time Seen by Provider: 11/25/18 17:17 Primary Care Provider: ARACELI CORTEZ MD [Primary Care Provider] - Follow up as needed TRAVEL OUTSIDE OF THE [place] IN LAST 30 DAYS: No COUNTRY TRAVELED TO/FROM: [facility] Notes: 11/25/18 17:19 Patient is a 67-year-old female who presents emergency department complaining of generalized abd pain, nausea, vomiting, diarrhea, and chest tightness/pain over the last 2 days. Patient states that she feels dehydrated and her heart rate is increased. She is still able to eat and drink, but does have a decreased p.o. intake. She is urinating normally. Denies DUNNE, fever, neck pain, URI, SOB, or rash. I have treated and performed a rapid initial assessment of this patient. A comprehensive ED assessment and evaluation of the patient, analysis of test results and completion of medical decision making process will be conducted by additional ED providers. PHYSICAL EXAMINATION: GENERAL: Well-appearing, well-nourished and in no acute distress. A&Ox4. Answers questions appropriately. LUNGS: Breath sounds clear to auscultation bilaterally and equal. No wheezes rales or rhonchi. HEART: Regular rate and rhythm without murmurs, rubs, gallops. ABDOMEN: Soft, nondistended abdomen. No guarding, no rebound. Normal bowel sounds present. No CVA tenderness bilaterally. + mild generalized tenderness (cannot elicit thorough abd exam w/o table, however). Extremities: No cyanosis, clubbing, or edema b/l. NEUROLOGICAL: Normal speech, normal gait. PSYCH: Normal mood, normal affect. - Related Data Allergies/Adverse Reactions: aspirin Allergy (Severe, Verified 11/25/18 16:53) Anaphylaxis Penicillins Allergy (Severe, Verified 11/25/18 16:53) Anaphylaxis hydrocodone [From Vicodin] Allergy (Intermediate, Verified 11/25/18 16:53) Anaphylaxis Sulfa (Sulfonamide Antibiotics) Allergy (Intermediate, Verified 11/25/18 16:53) iching, nausea codeine Allergy (Mild, Verified 11/25/18 16:53) Diarrhea meperidine HCl [From Demerol] Allergy (Mild, Verified 11/25/18 16:53) heart palpitations ciprofloxacin Adverse Reaction (Verified 11/25/18 16:53) NAUSEA, ITCHING Past Medical History - Social History Family history: Reviewed & Not Pertinent - Past Medical History Cardiac Medical History: Reports: Hx Hypertension Pulmonary Medical History: Reports: Hx Asthma, Hx Bronchitis, Hx Pneumonia Renal/ Medical History: Denies: Hx Peritoneal Dialysis GI Medical History: Reports: Hx Crohn's Disease, Hx Diverticulitis, Hx Gastroesophageal Reflux Disease, Hx Hiatal Hernia, Hx Irritable Bowel Musculoskeltal Medical History: Reports Hx Arthritis, Reports Hx Musculoskeletal Deformity, Reports Hx Musculoskeletal Trauma Psychiatric Medical History: Reports: Hx Anxiety, Hx Depression Past Surgical History: Reports: Hx Abdominal Surgery - small intestine removal, Hx Appendectomy, Hx Bowel Surgery - small intestine, Hx Breast Surgery - biopsy, Hx Hysterectomy, Hx Neurologic Surgery - brain tumor removed, Hx Tonsillectomy - Immunizations Immunizations up to date: Yes Hx Diphtheria, Pertussis, Tetanus Vaccination: Yes - 09/2010 History of Influenza Vaccine for 05/2017 - 10/2017 Season: Yes Doctor's Discharge - Discharge Referrals: ARACELI CORTEZ MD [Primary Care Provider] - Follow up as needed
[2018-11-25 18:03] LABS: ABSOLUTE EOSINOPHILS # (AUTO) 0.1 10^3/uL (0.0-0.6); ABSOLUTE LYMPHOCYTES (AUTO) 0.9 10^3/uL (0.5-4.7); ABSOLUTE MONOCYTES (AUTO) 0.8 10^3/uL (0.1-1.4); ABSOLUTE NEUT (AUTO) 4.7 10^3/uL (1.7-8.2); BASOPHILS % (AUTO) 0.6 % (0-2); EOSINOPHILS % (AUTO) 1.7 % (0-6); HEMATOCRIT 46.1 % (36.0-47.0); LYMPHOCYTES % (AUTO) 14.2 % (13-45); MEAN CORPUSCULAR HEMOGLOBIN 33.1 pg (27.0-33.4); MEAN CORPUSCULAR HGB CONC 34.6 g/dL (32.0-36.0); MEAN CORPUSCULAR VOLUME 96 fl (80-97); MONOCYTES % (AUTO) 12.5 % (3-13); PLATELET COUNT 434 10^3/uL (150-450); RED BLOOD COUNT 4.82 10^6/uL (3.72-5.28); RED CELL DISTRIBUTION WIDTH 14.5 % (11.5-14.0); TOTAL CELLS COUNTED % (AUTO) 100 %; WHITE BLOOD COUNT 6.7 10^3/uL (4.0-10.5)
[2018-11-25 18:28] LABS: ALANINE AMINOTRANSFERASE 30 U/L (9-52); ALBUMIN 4.8 g/dL (3.5-5.0); ALKALINE PHOSPHATASE 79 U/L (38-126); ANION GAP 15 (5-19); ASPARTATE AMINO TRANSFERASE 33 U/L (14-36); BILIRUBIN,DIRECT 0.3 mg/dL (0.0-0.4); BILIRUBIN,TOTAL 0.8 mg/dL (0.2-1.3); BLOOD UREA NITROGEN 29 mg/dL (7-20); CALCIUM 9.8 mg/dL (8.4-10.2); CARBON DIOXIDE 24 mmol/L (22-30); CHLORIDE 101 mmol/L (98-107); GLUCOSE 93 mg/dL (75-110); LIPASE 71.2 U/L (23-300); POTASSIUM 3.6 mmol/L (3.6-5.0); SODIUM 140.4 mmol/L (137-145); TOTAL PROTEIN 8.2 g/dL (6.3-8.2)
--- NOTE | 2018-11-25 18:54 | RADIOLOGY REPORT (SQ) ---
EXAM DESCRIPTION: CHEST SINGLE VIEW COMPLETED DATE/TIME: 11/25/2018 6:46 pm REASON FOR STUDY: CP COMPARISON: 10/14/2018 and earlier EXAM PARAMETERS: NUMBER OF VIEWS: One view. TECHNIQUE: Single frontal radiographic view of the chest acquired. RADIATION DOSE: NA LIMITATIONS: None. FINDINGS: LUNGS AND PLEURA: Persistent elevation the right hemidiaphragm. No opacities, masses or pneumothorax. No pleural effusion. MEDIASTINUM AND HILAR STRUCTURES: No masses. Contour normal. HEART AND VASCULAR STRUCTURES: Heart normal in size. Normal vasculature. BONES: No acute findings. HARDWARE: None in the chest. OTHER: No other significant finding. IMPRESSION: NO ACUTE RADIOGRAPHIC FINDING IN THE CHEST. TECHNICAL DOCUMENTATION: JOB ID: [id number] [employer]- All Rights Reserved Reading location - IP/workstation name: [email or web address]
[2018-11-25 19:19] VITALS: BP 157/80
[2018-11-25] MEDS ORDERED: METRONIDAZOLE 500 MG TABLET PO ONE (19:31)
[2018-11-25] MEDS ORDERED: HYOSCYAMINE SULFATE 0.125 MG TABLET PO ONE (19:31)
--- NOTE | 2018-11-25 19:37 | ER Document Report ---
ED General - General Chief Complaint: Nausea Stated Complaint: NAUSEA Time Seen by Provider: 11/25/18 17:17 Primary Care Provider: ARACELI CORTEZ MD [Primary Care Provider] - Follow up tomorrow Notes: Patient is a 67-year-old female past medical history of diverticulitis, presents complaining of 3 days of diarrhea, nausea, abdominal bloating. Patient listed multiple additional complaints in triage which she either does not bring up her denies to me. Patient has not seen her primary doctor regarding today's concerns. Has been able to tolerate oral intake. States symptoms are severe in nature, gradual in onset, have been worsening since initial onset. Has a history of recurrent similar symptoms in the past. TRAVEL OUTSIDE OF THE [place] IN LAST 30 DAYS: No COUNTRY TRAVELED TO/FROM: [facility] Onset: Other - 3 days ago Onset/Duration: Gradual Quality of pain: Other - Bloating Severity: Severe Pain Level: 3 Associated symptoms: Diarrhea, Nausea Exacerbated by: Denies Relieved by: Denies Similar symptoms previously: Yes Recently seen / treated by doctor: No - Related Data Allergies/Adverse Reactions: aspirin Allergy (Severe, Verified 11/25/18 16:53) Anaphylaxis Penicillins Allergy (Severe, Verified 11/25/18 16:53) Anaphylaxis hydrocodone [From Vicodin] Allergy (Intermediate, Verified 11/25/18 16:53) Anaphylaxis Sulfa (Sulfonamide Antibiotics) Allergy (Intermediate, Verified 11/25/18 16:53) iching, nausea codeine Allergy (Mild, Verified 11/25/18 16:53) Diarrhea meperidine HCl [From Demerol] Allergy (Mild, Verified 11/25/18 16:53) heart palpitations ciprofloxacin Adverse Reaction (Verified 11/25/18 16:53) NAUSEA, ITCHING Past Medical History - General Information source: Patient - Social History Smoking Status: Never Smoker Frequency of alcohol use: None Drug Abuse: None Lives with: Alone Family History: Arthritis, CAD, CVA, DM, Hyperlipidemia, Hypertension, Malignancy, Thyroid Disfunction Patient has suicidal ideation: No Patient has homicidal ideation: No - Past Medical History Cardiac Medical History: Reports: Hx Hypertension Pulmonary Medical History: Reports: Hx Asthma, Hx Bronchitis, Hx Pneumonia Renal/ Medical History: Denies: Hx Peritoneal Dialysis GI Medical History: Reports: Hx Crohn's Disease, Hx Diverticulitis, Hx Gastroesophageal Reflux Disease, Hx Hiatal Hernia, Hx Irritable Bowel Musculoskeletal Medical History: Reports Hx Arthritis, Reports Hx Musculoskeletal Deformity, Reports Hx Musculoskeletal Trauma Psychiatric Medical History: Reports: Hx Anxiety, Hx Depression Past Surgical History: Reports: Hx Abdominal Surgery - small intestine removal, Hx Appendectomy, Hx Bowel Surgery - small intestine, Hx Breast Surgery - biopsy, Hx Hysterectomy, Hx Neurologic Surgery - brain tumor removed, Hx Tonsillectomy - Immunizations Immunizations up to date: Yes Hx Diphtheria, Pertussis, Tetanus Vaccination: Yes - 09/2010 Hx Pneumococcal Vaccination: 08/24/10 Review of Systems - Review of Systems Notes: Constitutional: Negative for fever. HENT: Negative for sore throat. Eyes: Negative for visual changes. Cardiovascular: Negative for chest pain. Respiratory: Negative for shortness of breath. Gastrointestinal: Positive for abdominal bloating, diarrhea and nausea Genitourinary: Negative for dysuria. Musculoskeletal: Negative for back pain. Skin: Negative for rash. Neurological: Negative for headaches, weakness or numbness. 10 point ROS negative except as marked above and in HPI. Physical Exam - Vital signs Vitals: Temp Pulse Resp BP Pulse Ox 99.1 F 104 H 16 147/84 H 100 11/25/18 17:19 11/25/18 17:19 11/25/18 17:19 11/25/18 17:19 11/25/18 17:19 Interpretation: Tachycardic - Resolved at the time of my assessment with a heart rate of 92 Notes: PHYSICAL EXAMINATION: GENERAL: Well-appearing, well-nourished and in no acute distress. HEAD: Atraumatic, normocephalic. EYES: Pupils equal round and reactive to light, extraocular movements intact, sclera anicteric, conjunctiva are normal. ENT: nares patent, oropharynx clear without exudates. Moist mucous membranes. NECK: Normal range of motion, supple without lymphadenopathy LUNGS: Breath sounds clear to auscultation bilaterally and equal. No wheezes rales or rhonchi. HEART: Regular rate and rhythm without murmurs ABDOMEN: Soft, nontender, normoactive bowel sounds. No guarding, no rebound. No masses appreciated. EXTREMITIES: Normal range of motion, no pitting or edema. No cyanosis. NEUROLOGICAL: No focal neurological deficits. Moves all extremities spontaneously and on command. PSYCH: Normal mood, normal affect. SKIN: Warm, Dry, normal turgor, no rashes or lesions noted. Course - Re-evaluation Re-evalutation: 11/25/18 19:33 Patient presents with complaints of diarrhea, abdominal "fluid", and feeling dehydrated. The patient had a multitude of additional symptoms in triage and she now currently denies specifically denies chest pain or abdominal pain. Labs and vitals are within normal limits. Abdominal exam without any areas of focal tenderness no rebound or guarding. Likely viral in origin although could possibly be food borne versus bacterial colitis. Patient has a history of recurrent symptoms exactly the same as today for which I have seen her on a multitude of previous occasions. She is otherwise extremely well in appearance. I will empirically treat with metronidazole as patient states "I always need antibiotics for this kind of stuff". At this time will discharge with return precautions and follow-up recommendations. Verbal discharge instructions given a the bedside and opportunity for questions given. Medication warnings reviewed. Patient is in agreement with this plan and has verbalized understanding of return precautions and the need for primary care follow-up in the next 24-72 hours. - Vital Signs Vital signs: Temp Pulse Resp BP Pulse Ox 98.4 F 104 H 21 H 157/80 H 100 11/25/18 19:01 11/25/18 17:19 11/25/18 19:01 11/25/18 19:01 11/25/18 19:01 - Laboratory Result Diagrams: 11/25/18 17:35 11/25/18 17:35 Laboratory results interpreted by me: 11/25/18 11/25/18 17:35 17:35 Hgb 16.0 H RDW 14.5 H BUN 29 H Discharge - Discharge Clinical Impression: Abdominal cramping Diarrhea Qualifiers: Diarrhea type: unspecified type Qualified Code(s): R19.7 - Diarrhea, unspecified Condition: Good Disposition: HOME, SELF-CARE Additional Instructions: Your symptoms are likely due to a viral illness and should resolve in the next several days. You can take [id number] loperamide also known as Imodium as needed for diarrhea per box instructions. Continue to stay hydrated with plenty of solution such as Gatorade or Pedialyte. Please return if you develop severe abdominal pain, pass out, become unable to tolerate any oral fluids for 12 more hours, or any other symptoms that are concerning to you. Prescriptions: Hyoscyamine Sulfate [Levsin 0.125 Tablet] 0.125 mg PO TID PRN #30 tablet PRN Reason: Metronidazole [Flagyl 500 mg Tablet] 500 mg PO TID #21 tablet Referrals: ARACELI CORTEZ MD [Primary Care Provider] - Follow up tomorrow
[2018-11-25] MEDS ORDERED: HYOSCYAMINE SULFATE 0.125 MG TABLET ONE (19:43)
--- NOTE | 2018-11-27 20:47 | EKG REPORT ---
SEVERITY:- NORMAL ECG - SINUS RHYTHM : Confirmed by: Dominique Stevens 27-Nov-2018 20:46:43
== END 2018-11-25 20:14 | disposition home or self-care (01) ==
LOC: ER 16:52
DX: R14.0 Abdominal distension (gaseous) (principal); R11.0 Nausea; R19.7 Diarrhea, unspecified; I10 Essential (primary) hypertension; Z88.6 Allergy status to analgesic agent; Z88.0 Allergy status to penicillin; Z88.2 Allergy status to sulfonamides; Z88.3 Allergy status to other anti-infective agents; Z90.710 Acquired absence of both cervix and uterus
CPT/HCPCS: 93005; 99284; 96361; 96374; 36415; 83690; 85025; 80053; 84484; 71045; 93010; A9270 ×2; J2765; J7030; J3490

== ENCOUNTER 2018-12-26 10:07 | Observation (INO) | payer MEDICARE, MEDICAID ==
[2018-12-26 10:58] LABS: HEMATOCRIT 39.2 % (36.0-47.0); HEMOGLOBIN 13.4 g/dL (12.0-15.5); MEAN CORPUSCULAR HEMOGLOBIN 32.8 pg (27.0-33.4); MEAN CORPUSCULAR HGB CONC 34.1 g/dL (32.0-36.0); MEAN CORPUSCULAR VOLUME 96 fl (80-97); PLATELET COUNT 410 10^3/uL (150-450); RED BLOOD COUNT 4.09 10^6/uL (3.72-5.28); WHITE BLOOD COUNT 9.1 10^3/uL (4.0-10.5)
[2018-12-26] MEDS ORDERED: NORMAL SALINE 1000 ML 1,000 ML IV PRN (11:11)
[2018-12-26 11:24] LABS: ALANINE AMINOTRANSFERASE 21 U/L (9-52); ALBUMIN 3.9 g/dL (3.5-5.0); ALKALINE PHOSPHATASE 60 U/L (38-126); ANION GAP 12 (5-19); ASPARTATE AMINO TRANSFERASE 18 U/L (14-36); BILIRUBIN,DIRECT 0.2 mg/dL (0.0-0.4); BILIRUBIN,TOTAL 0.9 mg/dL (0.2-1.3); BLOOD UREA NITROGEN 13 mg/dL (7-20); CALCIUM 9.5 mg/dL (8.4-10.2); CARBON DIOXIDE 26 mmol/L (22-30); CHLORIDE 103 mmol/L (98-107); GLUCOSE 93 mg/dL (75-110); POTASSIUM 4.2 mmol/L (3.6-5.0); SODIUM 141.4 mmol/L (137-145)
[2018-12-26] MEDS: IPRATROPIUM/ALBUTEROL 0.5-2.5 MG/3 ML AMPUL NEB SCH ×2 (13:48→20:12)
[2018-12-26 14:29] LABS: APPEARANCE,URINE SLIGHTLY-CLOUDY; BILIRUBIN,URINE NEGATIVE (NEGATIVE); COLOR,URINE YELLOW; GLUCOSE, URINE NEGATIVE (NEGATIVE); KETONES,URINE NEGATIVE (NEGATIVE); LEUKOCYTE ESTERASE,URINE TRACE (NEGATIVE); NITRITE,URINE NEGATIVE (NEGATIVE); PROTEIN,URINE NEGATIVE (NEGATIVE); URINE SPECIFIC GRAVITY 1.017; UROBILINOGEN,URINE NEGATIVE mg/dL (<2.0)
--- NOTE | 2018-12-26 15:45 | RADIOLOGY REPORT (SQ) ---
EXAM DESCRIPTION: CHEST 2 VIEWS COMPLETED DATE/TIME: 12/26/2018 2:45 pm REASON FOR STUDY: ABD. PAIN, COUGH COMPARISON: 12/17/2018 and 10/14/2018 EXAM PARAMETERS: NUMBER OF VIEWS: two views TECHNIQUE: Digital Frontal and Lateral radiographic views of the chest acquired. RADIATION DOSE: NA LIMITATIONS: none FINDINGS: LUNGS AND PLEURA: As on the previous examination, mild prominence of the interstitial mar kings in the lungs. No pneumothorax or pleural effusion. MEDIASTINUM AND HILAR STRUCTURES: No masses or contour abnormalities. HEART AND VASCULAR STRUCTURES: Heart normal size. No evidence for failure. BONES: No acute findings. HARDWARE: None in the chest. OTHER: No other significant finding. IMPRESSION: 1. As on the prior examinations dated 12/17/2018 and 10/14/2018, mild prominence of the i nterstitial markings in the lungs. No acute pulmonary consolidation. TECHNICAL DOCUMENTATION: JOB ID: [id number] [employer]- All Rights Reserved Reading location - IP/workstation name: [email or web address]
--- NOTE | 2018-12-26 16:31 | RADIOLOGY REPORT (SQ) ---
EXAM DESCRIPTION: CT ABD/PELVIS ORAL ONLY COMPLETED DATE/TIME: 12/26/2018 3:12 pm REASON FOR STUDY: ABD. PAIN COMPARISON: [address] abdomen and pelvis exams since 2010, most recently 09/01/2018, 08/17/2018 TECHNIQUE: CT scan of the abdomen and pelvis performed without intravenous contrast. Patient drank oral contrast Images reviewed with lung, soft tissue, and bone windows. Reconstructed coronal and sagittal MPR imag es reviewed. All images stored on PACS. All CT scanners at this facility use dose modulation, iterative reconstruction, and/or weight based d osing when appropriate to reduce radiation dose to as low as reasonably achievable (ALARA). [facility]: Dose Right [facility]: CareDose [facility]: Dose Right [facility]: Teradose 4D [facility]: Smart Technologies RADIATION DOSE: CT Rad equipment meets quality standard of care and radiation dose reduction techniq ues were employed. CTDIvol: 4.8 mGy. DLP: 249 mGy-cm.mGy. LIMITATIONS: None. FINDINGS: There is a short segment of inflamed sigmoid colon with pericolic fat inflammatory change in the left pelvis. An inflamed diverticulum with adjacent inflammation in the pelvic fat is present without free intraperitoneal air or CT signs of abscess on axial images 64 through 67 and coronal im ages 34-38. There is a heavy burden of diverticuli along the sigmoid colon without other foci of acute diverticul itis. Patient drank oral contrast. No CT evidence of bowel obstruction or free intraperitoneal air or flui d. LOWER CHEST: No significant findings. No nodules or infiltrates. NON-CONTRASTED LIVER, SPLEEN, ADRENALS: Evaluation limited by lack of IV contrast. No identified sign ificant masses. PANCREAS: No masses. No peripancreatic inflammatory changes. GALLBLADDER: No identified stones by CT criteria. No inflammatory changes to suggest cholecystitis. RIGHT KIDNEY AND URETER: No suspicious masses. Assessment limited by lack of IV contrast. No signif icant calcifications. No hydronephrosis or hydroureter. LEFT KIDNEY AND URETER: No suspicious masses. Assessment limited by lack of IV contrast. No signifi cant calcifications. No hydronephrosis or hydroureter. AORTA AND RETROPERITONEUM: No aneurysm. No retroperitoneal masses or adenopathy. BOWEL AND PERITONEAL CAVITY: As above APPENDIX: Surgically absent PELVIS, BLADDER, AND ABDOMINAL WALL:Post hysterectomy. Inflamed sigmoid colon adjacent to the bladde r dome without CT evidence of colovesical fistula at this time. BONES: Multilevel degenerative disc changes with central stenosis at L3-4 OTHER: No other significant finding. IMPRESSION: Inflamed sigmoid colon diverticulum without abscess or free air. COMMENT: Quality ID # [id number]: Final reports with documentation of one or more dose reduction techniques (e.g., Automated exposure control, adjustment of the mA and/or kV according to patient size, use of iterative reconstruction technique) TECHNICAL DOCUMENTATION: JOB ID: [id number] [employer]- All Rights Reserved Reading location - IP/workstation name: [email or web address]
--- NOTE | 2018-12-26 17:45 | EKG REPORT ---
SEVERITY:- NORMAL ECG - SINUS RHYTHM : Confirmed by: Soraida Verma MD 26-Dec-2018 17:44:12
[2018-12-26] MEDS ORDERED: ALBUTEROL SULFATE HFA (90 MCG/PUFF) 200 PUFF/8.5 GM MDI IH PRN (21:00)
[2018-12-26] MEDS ORDERED: BIMATOPROST OU SCH (21:00)
[2018-12-26] MEDS ORDERED: TRIAMCINOLONE ACETONIDE 0.5% CREAM 15 GM TOP PRN (21:00)
--- NOTE | 2018-12-26 21:01 | PDOC H&P ---
History of Present Illness Admission Date/PCP: 12/26/18 10:07 ARACELI CORTEZ MD History of Present Illness: MICHAEL CAMEJO is a 68 year old female patient was admitted for evaluation of multiple complaints including abdominal pain, fever, chills,, she was admitted directly from outpatient to the hospital, she has a history of diverticulitis, CT scan of the abdomen and pelvis with oral contrast was obtained, it demonstrated a short segment of inflamed sigmoid colon with pericolic fat inflammatory change in the left pelvis. And inflamed diverticulum with adjacent inflammation in the pelvic fat is present without free intraperitoneal air or CT signs of abscess. Also found was a heavy burden of diverticuli along the sigmoid colon Past Medical History Cardiac Medical History: Reports: Hypertension Pulmonary Medical History: Reports: Asthma, Bronchitis, Pneumonia GI Medical History: Reports: Diverticulitis, Gastroesophageal Reflux Disease, Hiatal Hernia Musculoskeltal Medical History: Reports: Arthritis Psychiatric Medical History: Reports: Depression Hematology: Reports: Anemia Past Surgical History Past Surgical History: Reports: Appendectomy, Hysterectomy, Tonsillectomy Social History Smoking Status: Never Smoker Frequency of Alcohol Use: None Hx Recreational Drug Use: No Drugs: None Hx Prescription Drug Abuse: Yes Family History Family History: Arthritis, CAD, CVA, DM, Hyperlipidemia, Hypertension, Malignancy, Thyroid Disfunction Parental Family History Reviewed: Yes Children Family History Reviewed: Yes Sibling(s) Family History Reviewed.: Yes Medication/Allergy Home Medications: Albuterol Sulfate [Proair HFA Inhalation Aerosol 8.5 gm MDI] 2 puff IH Q4HP PRN 12/26/18 Bimatoprost 1 drop OU QHS 12/26/18 Cyanocobalamin (Vitamin B-12) [Vitamin B-12 Inj 1000 Mcg/1 ml Vial] 1 ml IM TH@1000 12/26/18 Dexlansoprazole [Dexilant 60 mg Capsule] 60 mg PO DAILY 12/26/18 Dicyclomine HCl [Bentyl 20 mg Tablet] 20 mg PO Q6 12/26/18 Diltiazem HCl [Cardizem Cd 120 mg Capsule] 120 mg PO Q12 12/26/18 Ergocalciferol (Vitamin D2) [Drisdol 50,000 unit (1.25MG) Capsule] 50,000 unit PO JORGE@1000 12/26/18 Hyoscyamine Sulfate [Levsin 0.125 Tablet] 0.125 mg PO TID 12/26/18 Ibandronate Sodium [Boniva] 150 mg PO .MONTHLY 12/26/18 Iron Aspgly,Ps/C/Succinic Acid [Ferrex 150 Plus Capsule] 1 cap PO BID 12/26/18 Meclizine HCl [Antivert 25 mg Tablet] 25 mg PO BIDP PRN 12/26/18 Methyl Salicylate/Menthol [Thera-Gesic Creme] 1 applic TOP DAILY 12/26/18 Triamcinolone Acetonide [Aristocort 0.5% Cream 15 gm] 1 applic TOP BIDP PRN 12/26/18 Allergies/Adverse Reactions: aspirin Allergy (Severe, Verified 11/25/18 16:53) Anaphylaxis Penicillins Allergy (Severe, Verified 11/25/18 16:53) Anaphylaxis hydrocodone [From Vicodin] Allergy (Intermediate, Verified 11/25/18 16:53) Anaphylaxis Sulfa (Sulfonamide Antibiotics) Allergy (Intermediate, Verified 11/25/18 16:53) iching, nausea codeine Allergy (Mild, Verified 11/25/18 16:53) Diarrhea meperidine HCl [From Demerol] Allergy (Mild, Verified 11/25/18 16:53) heart palpitations ciprofloxacin Adverse Reaction (Verified 11/25/18 16:53) NAUSEA, ITCHING Review of Systems Constitutional: PRESENT: fatigue, headache(s) Eyes: ABSENT: visual disturbances Ears: ABSENT: hearing changes Cardiovascular: ABSENT: chest pain, dyspnea on exertion, edema, orthropnea, palpitations Respiratory: ABSENT: cough, hemoptysis Gastrointestinal: PRESENT: abdominal pain, nausea Genitourinary: ABSENT: dysuria, hematuria Musculoskeletal: ABSENT: joint swelling Integumentary: ABSENT: rash, wounds Neurological: ABSENT: abnormal gait, abnormal speech, confusion, dizziness, focal weakness, syncope Psychiatric: ABSENT: anxiety, depression, homidical ideation, suicidal ideation Endocrine: ABSENT: cold intolerance, heat intolerance, menstrual abnormalities, polydipsia, polyuria Hematologic/Lymphatic: ABSENT: easy bleeding, easy bruising, lymphadenopathy Physical Exam Vital Signs: Temp Pulse Resp BP Pulse Ox 98.2 F 93 18 140/75 H 97 12/26/18 16:05 12/26/18 20:13 12/26/18 20:13 12/26/18 16:05 12/26/18 20:13 Intake & Output 12/25/18 12/26/18 12/27/18 06:59 06:59 06:59 Intake Total 240 Output Total 800 Balance -560 Weight 64.7 kg General appearance: PRESENT: no acute distress, well-developed, well-nourished Head exam: PRESENT: atraumatic, normocephalic Eye exam: PRESENT: conjunctiva pink, EOMI, PERRLA Ear exam: PRESENT: normal external ear exam Mouth exam: PRESENT: moist, tongue midline Neck exam: PRESENT: full ROM Respiratory exam: PRESENT: clear to auscultation franky Cardiovascular exam: PRESENT: RRR, +S1, +S2 GI/Abdominal exam: PRESENT: normal bowel sounds, soft, tenderness Rectal exam: PRESENT: deferred Neurological exam: PRESENT: alert Psychiatric exam: PRESENT: appropriate affect, normal mood Skin exam: PRESENT: dry, intact, warm Results Laboratory Results: 12/26/18 10:45 12/26/18 10:45 12/26/18 12/26/18 12/26/18 10:45 10:45 12:29 WBC 9.1 RBC 4.09 Hgb 13.4 Hct 39.2 MCV 96 MCH 32.8 MCHC 34.1 RDW 15.0 H Plt Count 410 Sodium 141.4 Potassium 4.2 Chloride 103 Carbon Dioxide 26 Anion Gap 12 BUN 13 Creatinine 0.65 Est GFR ( Amer) > 60 Est GFR (Non-Af Amer) > 60 Glucose 93 Calcium 9.5 Total Bilirubin 0.9 AST 18 ALT 21 Alkaline Phosphatase 60 Total Protein 7.0 Albumin 3.9 Urine Color YELLOW Urine Appearance SLIGHTLY-CLOUDY Urine pH 5.0 Ur Specific [place] 1.017 Urine Protein NEGATIVE Urine Glucose (UA) NEGATIVE Urine Ketones NEGATIVE Urine Blood NEGATIVE Urine Nitrite NEGATIVE Ur Leukocyte Esterase TRACE H Urine WBC (Auto) 2 Urine RBC (Auto) 1 Impressions: Abdomen/Pelvis CT 12/26/18 00:00 IMPRESSION: Inflamed sigmoid colon diverticulum without abscess or free air. Chest X-Ray 12/26/18 00:00 IMPRESSION: 1. As on the prior examinations dated 12/17/2018 and 10/14/2018, mild prominence of the interstitial markings in the lungs. No acute pulmonary consolidation. Assessment & Plan - Diagnosis (1) Acute diverticulitis Is this a current diagnosis for this admission?: Yes Plan: She has acute diverticulitis based on the CT findings, she has no leukocytosis or fever, history of recurrent diverticulitis, she may be a candidate for sigmoid colectomy
[2018-12-26] MEDS ORDERED: LATANOPROST 0.005% OPH SOLN 2.5 ML OU SCH (22:00)
[2018-12-26] MEDS: AZTREONAM 1 GM in DEXTROSE 5%-WATER 50 ML IV SCH (23:17)
[2018-12-26] MEDS: METRONIDAZOLE 500 MG/NS RTU 500 MG/100 ML RTUPB IV SCH (23:17)
[2018-12-26] MEDS: DILTIAZEM HCL 120 MG CAP.SR.24H PO SCH (23:18)
[2018-12-27] MEDS: IPRATROPIUM/ALBUTEROL 0.5-2.5 MG/3 ML AMPUL NEB SCH ×3 (02:08→14:06)
[2018-12-27] MEDS: METRONIDAZOLE 500 MG/NS RTU 500 MG/100 ML RTUPB IV SCH ×3 (03:00→15:01)
[2018-12-27] MEDS: AZTREONAM 1 GM in DEXTROSE 5%-WATER 50 ML IV SCH ×2 (05:16→13:12)
[2018-12-27] MEDS ORDERED: PANTOPRAZOLE SODIUM 40 MG TABLET.DR PO SCH (06:00)
[2018-12-27] MEDS: DILTIAZEM HCL 120 MG CAP.SR.24H PO SCH (09:50)
[2018-12-27 16:24] VITALS: BP 128/57
--- NOTE | 2018-12-27 17:02 | PDOC DISCHARGE SUMMARY ---
General - Admit/Disc Date/PCP Admission Date/Primary Care Provider: 12/26/18 10:07 ARACELI CORTEZ MD Discharge Date: 12/27/18 - Discharge Diagnosis (1) Acute diverticulitis Is this a current diagnosis for this admission?: Yes - Additional Information Discharge Diet: As Tolerated Discharge Activity: Activity As Tolerated Prescriptions: Levofloxacin [Levaquin 750 mg Tablet] 750 mg PO DAILY #10 tab Metronidazole [Flagyl 500 mg Tablet] 500 mg PO Q8H #21 tablet Home Medications: Albuterol Sulfate [Proair HFA Inhalation Aerosol 8.5 gm MDI] 2 puff IH Q4HP PRN 12/26/18 Bimatoprost 1 drop OU QHS 12/26/18 Cyanocobalamin (Vitamin B-12) [Vitamin B-12 Inj 1000 Mcg/1 ml Vial] 1 ml IM TH@1000 12/26/18 Dexlansoprazole [Dexilant 60 mg Capsule] 60 mg PO DAILY 12/26/18 Dicyclomine HCl [Bentyl 20 mg Tablet] 20 mg PO Q6 12/26/18 Diltiazem HCl [Cardizem Cd 120 mg Capsule] 120 mg PO Q12 12/26/18 Ergocalciferol (Vitamin D2) [Drisdol 50,000 unit (1.25MG) Capsule] 50,000 unit PO JORGE@1000 12/26/18 Hyoscyamine Sulfate [Levsin 0.125 Tablet] 0.125 mg PO TID 12/26/18 Ibandronate Sodium [Boniva] 150 mg PO .MONTHLY 12/26/18 Iron Aspgly,Ps/C/Succinic Acid [Ferrex 150 Plus Capsule] 1 cap PO BID 12/26/18 Triamcinolone Acetonide [Aristocort 0.5% Cream 15 gm] 1 applic TOP BIDP PRN 12/26/18 Levofloxacin [Levaquin 750 mg Tablet] 750 mg PO DAILY #10 tab 12/27/18 Metronidazole [Flagyl 500 mg Tablet] 500 mg PO Q8H #21 tablet 12/27/18 History of Present Illness History of Present Illness: MICHAEL CAMEJO is a 68 year old female patient was admitted for evaluation of multiple complaints including abdominal pain, fever, chills,, she was admitted directly from outpatient to the hospital, she has a history of diverticulitis, CT scan of the abdomen and pelvis with oral contrast was obtained, it demonstrated a short segment of inflamed sigmoid colon with pericolic fat inflammatory change in the left pelvis. And inflamed diverticulum with adjacent inflammation in the pelvic fat is present without free intraperitoneal air or CT signs of abscess. Also found was a heavy burden of diverticuli along the sigmoid colon Hospital Course Hospital Course: Patient was admitted for the management of acute sigmoid colon diverticulitis, she has history of recurrent diverticulitis, she was treated with IV antibiotic aztreonam and Flagyl. Aztreonam was chosen because of allergy to penicillin, consultation was requested from surgery, patient insisted on going home today before she was seen by the surgeon Physical Exam Vital Signs: Temp Pulse Resp BP Pulse Ox 98.6 F 73 16 128/57 H 100 12/27/18 16:22 12/27/18 16:22 12/27/18 16:22 12/27/18 16:22 12/27/18 16:22 Intake & Output 12/26/18 12/27/18 12/28/18 06:59 06:59 06:59 Intake Total 790 900 Output Total 1420 Balance -630 900 Weight 65.2 kg General appearance: PRESENT: no acute distress, well-developed, well-nourished Head exam: PRESENT: atraumatic, normocephalic Eye exam: PRESENT: conjunctiva pink, EOMI, PERRLA Ear exam: PRESENT: normal external ear exam Mouth exam: PRESENT: moist, tongue midline Neck exam: PRESENT: full ROM Respiratory exam: PRESENT: clear to auscultation franky Cardiovascular exam: PRESENT: RRR, +S1, +S2 GI/Abdominal exam: PRESENT: normal bowel sounds, soft Rectal exam: PRESENT: deferred Neurological exam: PRESENT: alert, awake, oriented to person, oriented to place, oriented to time, oriented to situation, CN II-XII grossly intact Psychiatric exam: PRESENT: appropriate affect, normal mood Skin exam: PRESENT: dry, intact, warm Results Laboratory Results: 12/26/18 10:45 12/26/18 10:45 12/26/18 12:29 Clean Catch Midstream Urine Culture - Final Mixed Urogenital Sapphire Impressions: Abdomen/Pelvis CT 12/26/18 00:00 IMPRESSION: Inflamed sigmoid colon diverticulum without abscess or free air. Chest X-Ray 05/07/19 00:00 IMPRESSION: 1. As on the prior examinations dated 12/17/2018 and 10/14/2018, mild prominence of the interstitial markings in the lungs. No acute pulmonary consolidation. Qualifiers - * PATIENT BEING DISCHARGED WITH ANY OF THE FOLLOWING DIAGNOSIS: No Acute Heart Failure Is this a Heart Failure Patient?: No
[2018-12-27] MEDS ORDERED: CYANOCOBALAMIN (VITAMIN B-12) INJ 1000 MCG/1 ML VIAL IM ONE (17:30)
[2018-12-27] MEDS ORDERED: IRON POLYSACCHARIDES COMPLEX 150 MG CAPSULE PO SCH (18:00)
[2018-12-27] MEDS ORDERED: DICYCLOMINE HCL 20 MG TABLET PO SCH (22:00)
[2018-12-28] MEDS ORDERED: CYANOCOBALAMIN (VITAMIN B-12) INJ 1000 MCG/1 ML VIAL IM SCH (10:00)
[2018-12-31] MEDS ORDERED: ERGOCALCIFEROL (VITAMIN D2) 50000 UNIT (1.25 MG) CAPSULE PO SCH (10:00)
[2019-01-03] MEDS ORDERED: CYANOCOBALAMIN (VITAMIN B-12) INJ 1000 MCG/1 ML VIAL IM SCH (10:00)
== END 2018-12-27 17:22 | disposition home or self-care (01) ==
LOC: 4S 10:07 → INTOOBSV 10:07
PROVIDERS: ADMIT Internal Medicine; ATTEND Internal Medicine
DX: K57.32 Diverticulitis of large intestine without perforation or abscess without bleeding (principal); I10 Essential (primary) hypertension; K21.9 Gastro-esophageal reflux disease without esophagitis; K44.9 Diaphragmatic hernia without obstruction or gangrene; D64.9 Anemia, unspecified; M19.90 Unspecified osteoarthritis, unspecified site; F32.9 Major depressive disorder, single episode, unspecified; Z90.710 Acquired absence of both cervix and uterus; Z79.899 Other long term (current) drug therapy; Z88.0 Allergy status to penicillin; Z88.2 Allergy status to sulfonamides; Z88.6 Allergy status to analgesic agent; Z88.1 Allergy status to other antibiotic agents
CPT/HCPCS: 36415; 87040; 87086; 85027; 80053; 81001; 71046; 74176; 93005; 93010; 94640 ×2; G0378; G0379; A9270 ×2; J3420; J3490 ×6; J7060 ×2; J7620

== ENCOUNTER 2019-01-04 18:33 | Emergency (ER) | payer MEDICARE, MEDICAID ==
--- NOTE | 2019-01-04 20:42 | ER Document Report ---
ED Medical Screen (RME) - General Chief Complaint: Headache Stated Complaint: HEADACHE Time Seen by Provider: 01/04/19 20:26 Primary Care Provider: ARACELI CORTEZ MD [Primary Care Provider] - Follow up as needed Mode of Arrival: Ambulatory Information source: Patient Notes: Patient is a 68-year-old female presented to the emergency department with multiple vague complaints. Patient reports she has had a headache for the last 3 to 4 days, states that it is her TMJ acting up. She also reports that when she gets a headache she has a bulging in her mouth up near teeth #1 and #16. She also reports pain throughout her back, thinks that she may have tumors or aneurysms in her brain. Exam: Patient alert, oriented and answering all questions. Patient talking in circles. Patient very anxious. Lung sounds are clear and equal bilaterally. I have greeted and performed a rapid initial assessment of this patient. A comprehensive ED assessment and evaluation of the patient, analysis of test results and completion of the medical decision making process will be conducted by additional ED providers. Dictation of this chart was performed using voice recognition software; therefore, there may be some unintended grammatical errors. TRAVEL OUTSIDE OF THE [place] IN LAST 30 DAYS: No COUNTRY TRAVELED TO/FROM: [place] - Related Data Allergies/Adverse Reactions: aspirin Allergy (Severe, Verified 01/04/19 18:35) Anaphylaxis Penicillins Allergy (Severe, Verified 01/04/19 18:35) Anaphylaxis hydrocodone [From Vicodin] Allergy (Intermediate, Verified 01/04/19 18:35) Anaphylaxis Sulfa (Sulfonamide Antibiotics) Allergy (Intermediate, Verified 01/04/19 18:35) iching, nausea codeine Allergy (Mild, Verified 01/04/19 18:35) Diarrhea meperidine HCl [From Demerol] Allergy (Mild, Verified 01/04/19 18:35) heart palpitations ciprofloxacin Adverse Reaction (Verified 01/04/19 18:35) NAUSEA, ITCHING Past Medical History - Social History Chew tobacco use (# tins/day): No Drug Abuse: None Family history: Reviewed & Not Pertinent - Past Medical History Cardiac Medical History: Reports: Hx Hypertension Denies: Hx Congestive Heart Failure, Hx Heart Attack Pulmonary Medical History: Reports: Hx Asthma, Hx Bronchitis, Hx Pneumonia Denies: Hx COPD, Hx Tuberculosis Neurological Medical History: Denies: Hx Seizures Renal/ Medical History: Denies: Hx End Stage Renal Disease, Hx Peritoneal Dialysis GI Medical History: Reports: Hx Crohn's Disease, Hx Diverticulitis, Hx Gastroesophageal Reflux Disease, Hx Hiatal Hernia, Hx Irritable Bowel. Denies: Hx Cirrhosis, Hx Hepatitis Musculoskeltal Medical History: Reports Hx Arthritis, Reports Hx Musculoskeletal Deformity, Reports Hx Musculoskeletal Trauma Psychiatric Medical History: Reports: Hx Anxiety, Hx Depression Denies: Hx Bipolar Disorder Infectious Medical History: Denies: Hx Hepatitis Past Surgical History: Reports: Hx Abdominal Surgery - small intestine removal, Hx Appendectomy, Hx Bowel Surgery - small intestine, Hx Breast Surgery - biopsy, Hx Hysterectomy, Hx Neurologic Surgery - brain tumor removed, Hx Tonsillectomy. Denies: Hx Mastectomy, Hx Pacemaker - Immunizations Immunizations up to date: Yes Hx Diphtheria, Pertussis, Tetanus Vaccination: Yes - 09/2010 History of Influenza Vaccine for 05/2017 - 10/2017 Season: Yes Physical Exam - Vital signs Vitals: Temp Pulse Resp BP Pulse Ox 98.6 F 80 16 137/74 H 80 L 01/04/19 18:59 01/04/19 18:59 01/04/19 18:59 01/04/19 18:59 01/04/19 18:59 Course - Vital Signs Vital signs: Temp Pulse Resp BP Pulse Ox 98.6 F 80 16 137/74 H 80 L 01/04/19 18:59 01/04/19 18:59 01/04/19 18:59 01/04/19 18:59 01/04/19 18:59 Doctor's Discharge - Discharge Referrals: ARACELI CORTEZ MD [Primary Care Provider] - Follow up as needed
[2019-01-04 21:19] LABS: APPEARANCE,URINE SLIGHTLY-CLOUDY; BILIRUBIN,URINE NEGATIVE (NEGATIVE); COLOR,URINE YELLOW; GLUCOSE, URINE NEGATIVE (NEGATIVE); KETONES,URINE NEGATIVE (NEGATIVE); LEUKOCYTE ESTERASE,URINE NEGATIVE (NEGATIVE); NITRITE,URINE NEGATIVE (NEGATIVE); PROTEIN,URINE NEGATIVE (NEGATIVE); URINE SPECIFIC GRAVITY 1.013; UROBILINOGEN,URINE NEGATIVE mg/dL (<2.0)
[2019-01-04 21:32] LABS: ABSOLUTE EOSINOPHILS # (AUTO) 0.2 10^3/uL (0.0-0.6); ABSOLUTE LYMPHOCYTES (AUTO) 1.3 10^3/uL (0.5-4.7); ABSOLUTE MONOCYTES (AUTO) 0.7 10^3/uL (0.1-1.4); ABSOLUTE NEUT (AUTO) 4.1 10^3/uL (1.7-8.2); BASOPHILS % (AUTO) 0.5 % (0-2); EOSINOPHILS % (AUTO) 2.6 % (0-6); HEMATOCRIT 41.8 % (36.0-47.0); HEMOGLOBIN 14.5 g/dL (12.0-15.5); LYMPHOCYTES % (AUTO) 21.2 % (13-45); MEAN CORPUSCULAR HEMOGLOBIN 33.1 pg (27.0-33.4); MEAN CORPUSCULAR HGB CONC 34.6 g/dL (32.0-36.0); MEAN CORPUSCULAR VOLUME 96 fl (80-97); MONOCYTES % (AUTO) 10.6 % (3-13); PLATELET COUNT 483 10^3/uL (150-450); RED BLOOD COUNT 4.36 10^6/uL (3.72-5.28); RED CELL DISTRIBUTION WIDTH 15.5 % (11.5-14.0); SEGMENTED NEUTROPHILS % (AUTO) 65.1 % (42-78); TOTAL CELLS COUNTED % (AUTO) 100 %; WHITE BLOOD COUNT 6.3 10^3/uL (4.0-10.5)
[2019-01-04 21:50] LABS: ALANINE AMINOTRANSFERASE 23 U/L (9-52); ALBUMIN 4.4 g/dL (3.5-5.0); ALKALINE PHOSPHATASE 53 U/L (38-126); ANION GAP 12 (5-19); ASPARTATE AMINO TRANSFERASE 22 U/L (14-36); BILIRUBIN,DIRECT 0.2 mg/dL (0.0-0.4); BILIRUBIN,TOTAL 0.6 mg/dL (0.2-1.3); BLOOD UREA NITROGEN 8 mg/dL (7-20); CALCIUM 10.3 mg/dL (8.4-10.2); CARBON DIOXIDE 30 mmol/L (22-30); CHLORIDE 100 mmol/L (98-107); GLUCOSE 97 mg/dL (75-110); POTASSIUM 4.6 mmol/L (3.6-5.0); SODIUM 142.3 mmol/L (137-145); TOTAL PROTEIN 7.6 g/dL (6.3-8.2)
[2019-01-05] MEDS ORDERED: KETOROLAC TROMETHAMINE 60 MG/2 ML SDV IM ONE (01:33)
--- NOTE | 2019-01-05 01:37 | ER Document Report ---
ED General - General Chief Complaint: Headache Stated Complaint: HEADACHE Time Seen by Provider: 01/04/19 20:26 Primary Care Provider: ARACELI CORTEZ MD [Primary Care Provider] - Follow up as needed Mode of Arrival: Ambulatory Notes: This is a 68-year-old female who presents to the emergency room with multiple complaints: Blurry vision, headache, growth in the mouth for years, TMJ problem for years, shoulder pain (history of arthritis in the past). She denies any fever or chills. TRAVEL OUTSIDE OF THE [place] IN LAST 30 DAYS: No COUNTRY TRAVELED TO/FROM: [facility] Onset: Last week Onset/Duration: Gradual Quality of pain: No pain Severity: None Pain Level: Denies Associated symptoms: Chest pain, Fever, Shortness of breath Exacerbated by: Denies Relieved by: Denies Similar symptoms previously: No Recently seen / treated by doctor: No - Related Data Allergies/Adverse Reactions: aspirin Allergy (Severe, Verified 01/04/19 18:35) Anaphylaxis Penicillins Allergy (Severe, Verified 01/04/19 18:35) Anaphylaxis hydrocodone [From Vicodin] Allergy (Intermediate, Verified 01/04/19 18:35) Anaphylaxis Sulfa (Sulfonamide Antibiotics) Allergy (Intermediate, Verified 01/04/19 18:35) iching, nausea codeine Allergy (Mild, Verified 01/04/19 18:35) Diarrhea meperidine HCl [From Demerol] Allergy (Mild, Verified 01/04/19 18:35) heart palpitations ciprofloxacin Adverse Reaction (Verified 01/04/19 18:35) NAUSEA, ITCHING Past Medical History - General Information source: Patient - Social History Smoking Status: Never Smoker Cigarette use (# per day): No Chew tobacco use (# tins/day): No Frequency of alcohol use: None Drug Abuse: None Lives with: Family Family History: Arthritis, CAD, CVA, DM, Hyperlipidemia, Hypertension, Malignancy, Thyroid Disfunction Patient has suicidal ideation: No Patient has homicidal ideation: No - Past Medical History Cardiac Medical History: Reports: Hx Hypertension Denies: Hx Congestive Heart Failure, Hx Heart Attack Pulmonary Medical History: Reports: Hx Asthma, Hx Bronchitis, Hx Pneumonia Denies: Hx COPD, Hx Tuberculosis Neurological Medical History: Denies: Hx Seizures Renal/ Medical History: Denies: Hx End Stage Renal Disease, Hx Peritoneal Dialysis GI Medical History: Reports: Hx Crohn's Disease, Hx Diverticulitis, Hx Gastroesophageal Reflux Disease, Hx Hiatal Hernia, Hx Irritable Bowel. Denies: Hx Cirrhosis, Hx Hepatitis Musculoskeletal Medical History: Reports Hx Arthritis, Reports Hx Musculoskele lori Deformity, Reports Hx Musculoskeletal Trauma Psychiatric Medical History: Reports: Hx Anxiety, Hx Depression Denies: Hx Bipolar Disorder Infectious Medical History: Denies: Hx Hepatitis Past Surgical History: Reports: Hx Abdominal Surgery - small intestine removal, Hx Appendectomy, Hx Bowel Surgery - small intestine, Hx Breast Surgery - biopsy, Hx Hysterectomy, Hx Neurologic Surgery - brain tumor removed, Hx Tonsillectomy. Denies: Hx Mastectomy, Hx Pacemaker - Immunizations Immunizations up to date: Yes Hx Diphtheria, Pertussis, Tetanus Vaccination: Yes - 09/2010 Hx Pneumococcal Vaccination: 08/24/10 Review of Systems - Review of Systems Constitutional: denies: Chills, Fever EENT: See HPI Cardiovascular: denies: Chest pain, Palpitations, Heart racing Respiratory: No symptoms reported Gastrointestinal: denies: Abdomen distended, Abdominal pain, Diarrhea Genitourinary: No symptoms reported Female Genitourinary: No symptoms reported Musculoskeletal: See HPI Skin: No symptoms reported Hematologic/Lymphatic: No symptoms reported Neurological/Psychological: See HPI Physical Exam - Vital signs Vitals: Temp Pulse Resp BP Pulse Ox 98.6 F 80 16 137/74 H 80 L 01/04/19 18:59 01/04/19 18:59 01/04/19 18:59 01/04/19 18:59 01/04/19 18:59 Notes: Physical exam: GENERAL: Patient is alert and oriented x3, no acute distress HEAD: Atraumatic, normocephalic. EYES: Pupils equal round and reactive to light, extraocular movements intact, sclera anicteric, conjunctiva are normal. ENT: TMs normal, nares patent, oropharynx clear without exudates. Moist mucous membranes. NECK: Normal range of motion, supple without obvious mass or JVD. LUNGS: Breath sounds clear to auscultation bilaterally and equal. No wheezes rales or rhonchi. HEART: Regular rate and rhythm without murmurs, rubs or gallops. ABDOMEN: Soft, normoactive bowel sounds. No tenderness to palpation. No guarding, no rebound. No masses appreciated. EXTREMITIES: Normal range of motion, no pitting or edema. No clubbing or cyanosis. NEUROLOGICAL: Cranial nerves II through XII grossly intact. Normal speech, moving all extremities. 5/5, sensory intact, cerebellar ([id number]) good, reflexes are symmetrical. PSYCH: Normal mood, normal affect. SKIN: Warm, Dry, normal turgor, no rashes or lesions noted. Course - Vital Signs Vital signs: Temp Pulse Resp BP Pulse Ox 98.6 F 80 16 137/74 H 80 L 01/04/19 18:59 01/04/19 18:59 01/04/19 18:59 01/04/19 18:59 01/04/19 18:59 - Laboratory Result Diagrams: 01/04/19 21:01 01/04/19 21:01 Laboratory results interpreted by me: 01/04/19 01/04/19 21:01 21:01 RDW 15.5 H Plt Count 483 H Calcium 10.3 H Discharge - Discharge Clinical Impression: Arthritis, Headache Condition: Stable Disposition: HOME, SELF-CARE Additional Instructions: I placed the number for neurologist on the chart. Below is the number for an ENT doctor. I want you to continue to follow-up with Dr. Cortez. Follow-up with Dr. Lin for the injections. Follow-up with an ENT Doctor: [facility] [address] [place] [address] Toll Free: Referrals: ARACELI CORTEZ MD [Primary Care Provider] - 01/08/19 VINH VAIL MD [NO LOCAL MD] - Follow up as needed (This is the number of the nerve doctor)
[2019-01-05 01:54] VITALS: BP 147/76
== END 2019-01-05 01:54 | disposition home or self-care (01) ==
LOC: ER 18:33
DX: R51 Headache (principal); M19.90 Unspecified osteoarthritis, unspecified site; H53.8 Other visual disturbances; R07.9 Chest pain, unspecified; M25.519 Pain in unspecified shoulder; I10 Essential (primary) hypertension; J45.909 Unspecified asthma, uncomplicated; Z87.892 Personal history of anaphylaxis; Z88.6 Allergy status to analgesic agent; Z88.0 Allergy status to penicillin; Z88.5 Allergy status to narcotic agent; Z88.2 Allergy status to sulfonamides
CPT/HCPCS: 99284; 96372; 36415; 85025; 80053; 81001; J1885

== ENCOUNTER 2019-02-09 16:13 | Observation (INO) | payer MEDICARE, MEDICAID ==
[2019-02-09] MEDS ORDERED: METRONIDAZOLE 500 MG/NS RTU 500 MG/100 ML RTUPB IV ONE (16:48)
[2019-02-09] MEDS ORDERED: LEVOFLOXACIN 750 MG/D5W RTU 750 MG/150 ML RTUPB IV ONE ×2 (16:48→20:00)
--- NOTE | 2019-02-09 16:50 | ER Document Report ---
ED Medical Screen (RME) - General Chief Complaint: Abdominal Pain Stated Complaint: DIARRHEA Time Seen by Provider: 02/09/19 16:42 Primary Care Provider: ARACELI CORTEZ MD [Primary Care Provider] - Follow up as needed Information source: Patient Notes: Patient presents as a direct admit for abdominal pain with acute diverticulitis. Patient does have orders from her primary doctor. I have greeted and performed a rapid initial assessment of this patient. A comprehensive ED assessment and evaluation of the patient, analysis of test results and completion of the medical decision making process will be conducted by additional ED providers. TRAVEL OUTSIDE OF THE [place] IN LAST 30 DAYS: No COUNTRY TRAVELED TO/FROM: [place] - Related Data Allergies/Adverse Reactions: aspirin Allergy (Severe, Verified 02/03/19 12:29) Anaphylaxis Penicillins Allergy (Severe, Verified 02/03/19 12:29) Anaphylaxis hydrocodone [From Vicodin] Allergy (Intermediate, Verified 02/03/19 12:29) Anaphylaxis Sulfa (Sulfonamide Antibiotics) Allergy (Intermediate, Verified 02/03/19 12:29) iching, nausea codeine Allergy (Mild, Verified 02/03/19 12:29) Diarrhea meperidine HCl [From Demerol] Allergy (Mild, Verified 02/03/19 12:29) heart palpitations ciprofloxacin Adverse Reaction (Verified 02/03/19 12:29) NAUSEA, ITCHING Past Medical History - Social History Family history: Reviewed & Not Pertinent - Past Medical History Cardiac Medical History: Reports: Hx Hypertension Denies: Hx Congestive Heart Failure, Hx Heart Attack Pulmonary Medical History: Reports: Hx Asthma, Hx Bronchitis, Hx Pneumonia Denies: Hx COPD, Hx Tuberculosis Neurological Medical History: Denies: Hx Seizures Renal/ Medical History: Denies: Hx End Stage Renal Disease, Hx Peritoneal Dialysis GI Medical History: Reports: Hx Crohn's Disease, Hx Diverticulitis, Hx Gastroesophageal Reflux Disease, Hx Hiatal Hernia, Hx Irritable Bowel. Denies: Hx Cirrhosis, Hx Hepatitis Musculoskeltal Medical History: Reports Hx Arthritis, Reports Hx Musculoskeletal Deformity, Reports Hx Musculoskeletal Trauma Psychiatric Medical History: Reports: Hx Anxiety, Hx Depression Denies: Hx Bipolar Disorder Infectious Medical History: Denies: Hx Hepatitis Past Surgical History: Reports: Hx Abdominal Surgery - small intestine removal, Hx Appendectomy, Hx Bowel Surgery - small intestine, Hx Breast Surgery - biopsy, Hx Hysterectomy, Hx Neurologic Surgery - brain tumor removed, Hx Tonsillectomy. Denies: Hx Mastectomy, Hx Pacemaker - Immunizations Immunizations up to date: Yes Hx Diphtheria, Pertussis, Tetanus Vaccination: Yes - 09/2010 History of Influenza Vaccine for 05/2017 - 10/2017 Season: Yes Physical Exam - Vital signs Vitals: Temp Pulse Resp BP Pulse Ox 98.8 F 96 16 133/70 H 99 02/09/19 16:29 02/09/19 16:29 02/09/19 16:29 02/09/19 16:29 02/09/19 16:29 - General General appearance: Appears well, Alert In distress: None Notes: Abdominal tenderness Course - Vital Signs Vital signs: Temp Pulse Resp BP Pulse Ox 98.8 F 96 16 133/70 H 99 02/09/19 16:29 02/09/19 16:29 02/09/19 16:29 02/09/19 16:29 02/09/19 16:29 Doctor's Discharge - Discharge Referrals: ARACELI CORTEZ MD [Primary Care Provider] - Follow up as needed
[2019-02-09] MEDS ORDERED: NORMAL SALINE 1000 ML 1,000 ML IV PRN (18:34)
[2019-02-09 19:39] LABS: ABSOLUTE BASOPHILS # (AUTO) 0.1 10^3/uL (0.0-0.2); ABSOLUTE EOSINOPHILS # (AUTO) 0.1 10^3/uL (0.0-0.6); ABSOLUTE LYMPHOCYTES (AUTO) 1.3 10^3/uL (0.5-4.7); ABSOLUTE MONOCYTES (AUTO) 0.8 10^3/uL (0.1-1.4); ABSOLUTE NEUT (AUTO) 9.2 10^3/uL (1.7-8.2); BASOPHILS % (AUTO) 0.5 % (0-2); EOSINOPHILS % (AUTO) 0.9 % (0-6); HEMATOCRIT 40.5 % (36.0-47.0); HEMOGLOBIN 13.5 g/dL (12.0-15.5); LYMPHOCYTES % (AUTO) 11.1 % (13-45); MEAN CORPUSCULAR HEMOGLOBIN 32.5 pg (27.0-33.4); MEAN CORPUSCULAR HGB CONC 33.4 g/dL (32.0-36.0); MEAN CORPUSCULAR VOLUME 98 fl (80-97); PLATELET COUNT 333 10^3/uL (150-450); RED BLOOD COUNT 4.16 10^6/uL (3.72-5.28); RED CELL DISTRIBUTION WIDTH 15.2 % (11.5-14.0); SEGMENTED NEUTROPHILS % (AUTO) 80.5 % (42-78); TOTAL CELLS COUNTED % (AUTO) 100 %; WHITE BLOOD COUNT 11.4 10^3/uL (4.0-10.5)
[2019-02-09 19:58] LABS: ALANINE AMINOTRANSFERASE 22 U/L (9-52); ALBUMIN 4.4 g/dL (3.5-5.0); ALKALINE PHOSPHATASE 54 U/L (38-126); ANION GAP 10 (5-19); ASPARTATE AMINO TRANSFERASE 18 U/L (14-36); BILIRUBIN,DIRECT 0.2 mg/dL (0.0-0.4); BILIRUBIN,TOTAL 1.3 mg/dL (0.2-1.3); BLOOD UREA NITROGEN 12 mg/dL (7-20); CALCIUM 9.8 mg/dL (8.4-10.2); CARBON DIOXIDE 27 mmol/L (22-30); CHLORIDE 101 mmol/L (98-107); GLUCOSE 86 mg/dL (75-110); POTASSIUM 3.9 mmol/L (3.6-5.0); SODIUM 138.4 mmol/L (137-145); TOTAL PROTEIN 7.1 g/dL (6.3-8.2)
[2019-02-09] MEDS: NORMAL SALINE 1000 ML 1,000 ML IV PRN (20:28)
[2019-02-09] MEDS ORDERED: ALBUTEROL SULFATE HFA (90 MCG/PUFF) 200 PUFF/8.5 GM MDI IH PRN (20:33)
[2019-02-09] MEDS ORDERED: MECLIZINE HCL 25 MG TABLET PO PRN (20:33)
[2019-02-09] MEDS ORDERED: TRIAMCINOLONE ACETONIDE 0.5% CREAM 15 GM TOP PRN (20:33)
--- NOTE | 2019-02-09 20:33 | PDOC H&P ---
History of Present Illness Admission Date/PCP: 02/09/19 17:17 ARACELI CORTEZ MD History of Present Illness: MICHAEL CAMEJO is a 68 year old female, She came to the office today for evalu ation of abdominal pain, fever, malaise. She has a history of recurrent diverticulitis, the presentation today in the office was consistent with acute diverticulitis that she has had multiple times previously. The abdominal pain was predominantly in the left lower quadrant, I felt there was no indication at this time to obtain a CT scan of the abdomen and pelvis she is admitted directly from outpatient to the hospital to be treated for acute diverticulitis. The hemogram that was obtained revealed leukocytosis with a left shift showed a low- grade fever she is tender on palpation of the left lower quadrant of the abdomen. There was no bed available in the hospital she was dilated emergency room for initial evaluation pending evaluating her bed in the hospital. Past Medical History Cardiac Medical History: Reports: Hypertension Pulmonary Medical History: Reports: Asthma, Bronchitis, Pneumonia GI Medical History: Reports: Crohn's Disease, Diverticulitis, Gastroesophageal Reflux Disease, Hiatal Hernia Musculoskeltal Medical History: Reports: Arthritis Psychiatric Medical History: Reports: Depression Hematology: Reports: Anemia Past Surgical History Past Surgical History: Reports: Appendectomy, Hysterectomy, Tonsillectomy Social History Smoking Status: Never Smoker Frequency of Alcohol Use: None Hx Recreational Drug Use: No Drugs: None Hx Prescription Drug Abuse: No Family History Family History: Arthritis, CAD, CVA, DM, Hyperlipidemia, Hypertension, Malignancy, Thyroid Disfunction Parental Family History Reviewed: Yes Children Family History Reviewed: Yes Sibling(s) Family History Reviewed.: Yes Medication/Allergy Home Medications: Albuterol Sulfate [Proair HFA Inhalation Aerosol 8.5 gm MDI] 2 puff IH Q6HP PRN 12/26/18 Cyanocobalamin (Vitamin B-12) [Vitamin B-12 Inj 1000 Mcg/1 ml Vial] 1 ml IM TH@99912/26/18 Dexlansoprazole [Dexilant 60 mg Capsule] 60 mg PO DAILY 12/26/18 Ergocalciferol (Vitamin D2) [Drisdol 50,000 unit (1.25MG) Capsule] 50,000 unit PO JORGE@1000 12/26/18 Ibandronate Sodium [Boniva] 150 mg PO .MONTHLY 12/26/18 Iron Aspgly,Ps/C/Succinic Acid [Ferrex 150 Plus Capsule] 1 cap PO TID 12/26/18 Triamcinolone Acetonide [Aristocort 0.5% Cream 15 gm] 1 applic TOP BIDP PRN 12/26/18 Meclizine HCl [Antivert 25 mg Tablet] 25 mg PO TIDP PRN 02/09/19 Nystatin [Mycostatin Cream] 1 applic TP BID 02/09/19 Allergies/Adverse Reactions: aspirin Allergy (Severe, Verified 02/03/19 12:29) Anaphylaxis Penicillins Allergy (Severe, Verified 02/03/19 12:29) Anaphylaxis hydrocodone [From Vicodin] Allergy (Intermediate, Verified 02/03/19 12:29) Anaphylaxis Sulfa (Sulfonamide Antibiotics) Allergy (Intermediate, Verified 02/03/19 12:29) iching, nausea codeine Allergy (Mild, Verified 02/03/19 12:29) Diarrhea meperidine HCl [From Demerol] Allergy (Mild, Verified 02/03/19 12:29) heart palpitations ciprofloxacin Adverse Reaction (Verified 02/03/19 12:29) NAUSEA, ITCHING Review of Systems Constitutional: ABSENT: chills, fever(s), headache(s), weight gain, weight loss Eyes: ABSENT: visual disturbances Ears: ABSENT: hearing changes Cardiovascular: ABSENT: chest pain, dyspnea on exertion, edema, orthropnea, palpitations Respiratory: ABSENT: cough, hemoptysis Gastrointestinal: PRESENT: abdominal pain, vomiting. ABSENT: constipation, diarrhea, hematemesis, hematochezia, nausea Genitourinary: ABSENT: dysuria, hematuria Musculoskeletal: ABSENT: joint swelling Integumentary: ABSENT: rash, wounds Neurological: ABSENT: abnormal gait, abnormal speech, confusion, dizziness, focal weakness, syncope Psychiatric: ABSENT: anxiety, depression, homidical ideation, suicidal ideation Endocrine: ABSENT: cold intolerance, heat intolerance, menstrual abnormalities, polydipsia, polyuria Hematologic/Lymphatic: ABSENT: easy bleeding, easy bruising, lymphadenopathy Physical Exam Vital Signs: Temp Pulse Resp BP Pulse Ox 98.1 F 84 18 119/65 98 02/09/19 19:28 02/09/19 19:28 02/09/19 19:28 02/09/19 19:28 02/09/19 19:28 Intake & Output 02/08/19 02/09/19 02/10/19 06:59 06:59 06:59 Weight 65.487 kg General appearance: PRESENT: mild distress Head exam: PRESENT: atraumatic, normocephalic Eye exam: PRESENT: PERRLA Ear exam: PRESENT: normal external ear exam Neck exam: PRESENT: full ROM Respiratory exam: PRESENT: clear to auscultation franky Cardiovascular exam: PRESENT: RRR, +S1, +S2 Vascular exam: PRESENT: normal capillary refill GI/Abdominal exam: PRESENT: normal bowel sounds, soft, tenderness Rectal exam: PRESENT: deferred Neurological exam: PRESENT: alert, awake, oriented to person, oriented to place, oriented to time, oriented to situation, CN II-XII grossly intact Psychiatric exam: PRESENT: appropriate affect, normal mood Skin exam: PRESENT: dry, intact, warm Results Laboratory Results: 02/09/19 19:21 02/09/19 19:21 02/09/19 02/09/19 19:21 19:21 WBC 11.4 H RBC 4.16 Hgb 13.5 Hct 40.5 MCV 98 H MCH 32.5 MCHC 33.4 RDW 15.2 H Plt Count 333 Seg Neutrophils % 80.5 H Lymphocytes % 11.1 L Monocytes % 7.0 Eosinophils % 0.9 Basophils % 0.5 Absolute Neutrophils 9.2 H Absolute Lymphocytes 1.3 Absolute Monocytes 0.8 Absolute Eosinophils 0.1 Absolute Basophils 0.1 Sodium 138.4 Potassium 3.9 Chloride 101 Carbon Dioxide 27 Anion Gap 10 BUN 12 Creatinine 0.65 Est GFR ( Amer) > 60 Est GFR (Non-Af Amer) > 60 Glucose 86 Calcium 9.8 Total Bilirubin 1.3 AST 18 ALT 22 Alkaline Phosphatase 54 Total Protein 7.1 Albumin 4.4 Assessment & Plan - Diagnosis (1) Acute diverticulitis Is this a current diagnosis for this admission?: Yes Plan: Patient is admitted for management, start IV Levaquin, Flagyl
[2019-02-09] MEDS: MORPHINE SULFATE 10 MG/ML INJ IV PRN (21:27)
[2019-02-09] MEDS: METRONIDAZOLE 500 MG/NS RTU 500 MG/100 ML RTUPB IV SCH (21:28)
[2019-02-09] MEDS: IRON POLYSACCHARIDES COMPLEX 150 MG CAPSULE PO SCH (22:22)
[2019-02-09] MEDS: PANTOPRAZOLE SODIUM 40 MG TABLET.DR PO SCH (22:22)
[2019-02-09] MEDS: NYSTATIN CREAM 15 GM TP SCH (22:23)
[2019-02-10 01:45] LABS: APPEARANCE,URINE CLEAR; BILIRUBIN,URINE NEGATIVE (NEGATIVE); COLOR,URINE YELLOW; GLUCOSE, URINE NEGATIVE (NEGATIVE); KETONES,URINE NEGATIVE (NEGATIVE); LEUKOCYTE ESTERASE,URINE TRACE (NEGATIVE); NITRITE,URINE NEGATIVE (NEGATIVE); PROTEIN,URINE NEGATIVE (NEGATIVE); URINE SPECIFIC GRAVITY 1.006; UROBILINOGEN,URINE NEGATIVE mg/dL (<2.0)
[2019-02-10] MEDS: IRON POLYSACCHARIDES COMPLEX 150 MG CAPSULE PO SCH ×3 (05:34→21:47)
[2019-02-10] MEDS: METRONIDAZOLE 500 MG/NS RTU 500 MG/100 ML RTUPB IV SCH ×3 (05:34→21:47)
[2019-02-10] MEDS: NORMAL SALINE 1000 ML 1,000 ML IV PRN ×2 (09:37→21:48)
[2019-02-10] MEDS: PANTOPRAZOLE SODIUM 40 MG TABLET.DR PO SCH (09:37)
[2019-02-10] MEDS: LEVOFLOXACIN 750 MG/D5W RTU 750 MG/150 ML RTUPB IV SCH (09:37)
[2019-02-10] MEDS: MORPHINE SULFATE 10 MG/ML INJ IV PRN (09:37)
[2019-02-10] MEDS: NYSTATIN CREAM 15 GM TP SCH ×2 (09:42→17:25)
--- NOTE | 2019-02-10 11:31 | PDOC PROGRESS REPORT ---
Subjective Progress Note for:: 02/10/19 Subjective:: Patient was admitted because of the possible diverticulitis Patient also wanted vitamin B12 injections patient also complains some callus and corn in the foot Patient is denied any chest pain to than any shortness of the breath Reason For Visit: FEVER, ACUTE DIVERTICULITIS Physical Exam Vital Signs: Temp Pulse Resp BP Pulse Ox 98.4 F 77 16 110/67 99 02/10/19 07:00 02/10/19 07:00 02/10/19 07:00 02/10/19 07:00 02/10/19 07:00 Intake & Output 02/09/19 02/10/19 02/11/19 06:59 06:59 06:59 Intake Total 1670 Balance 1670 Weight 64.3 kg General appearance: PRESENT: no acute distress, well-developed, well-nourished Head exam: PRESENT: atraumatic, normocephalic Eye exam: PRESENT: conjunctiva pink, EOMI, PERRLA. ABSENT: scleral icterus Ear exam: PRESENT: normal external ear exam Mouth exam: PRESENT: moist, tongue midline Neck exam: PRESENT: full ROM. ABSENT: carotid bruit, JVD, lymphadenopathy, thyromegaly Respiratory exam: PRESENT: clear to auscultation franky Cardiovascular exam: PRESENT: RRR. ABSENT: diastolic murmur, rubs, systolic murmur Pulses: PRESENT: normal dorsalis pedis pul, +2 pedal pulses bilateral Vascular exam: PRESENT: normal capillary refill GI/Abdominal exam: PRESENT: normal bowel sounds, soft. ABSENT: distended, guarding, mass, organolmegaly, rebound, tenderness Rectal exam: PRESENT: deferred Extremities exam: ABSENT: pedal edema Musculoskeletal exam: PRESENT: ambulatory Neurological exam: PRESENT: alert, awake, oriented to person, oriented to place, oriented to time, oriented to situation, CN II-XII grossly intact. ABSENT: motor sensory deficit Psychiatric exam: PRESENT: appropriate affect, normal mood. ABSENT: homicidal ideation, suicidal ideation Skin exam: PRESENT: dry, intact, warm. ABSENT: cyanosis, rash Results Laboratory Results: 02/09/19 19:21 02/09/19 19:21 02/09/19 02/09/19 02/10/19 19:21 19: 00:52 WBC 11.4 H RBC 4.16 Hgb 13.5 Hct 40.5 MCV 98 H MCH 32.5 MCHC 33.4 RDW 15.2 H Plt Count 333 Seg Neutrophils % 80.5 H Lymphocytes % 11.1 L Monocytes % 7.0 Eosinophils % 0.9 Basophils % 0.5 Absolute Neutrophils 9.2 H Absolute Lymphocytes 1.3 Absolute Monocytes 0.8 Absolute Eosinophils 0.1 Absolute Basophils 0.1 Sodium 138.4 Potassium 3.9 Chloride 101 Carbon Dioxide 27 Anion Gap 10 BUN 12 Creatinine 0.65 Est GFR ( Amer) > 60 Est GFR (Non-Af Amer) > 60 Glucose 86 Calcium 9.8 Total Bilirubin 1.3 AST 18 ALT 22 Alkaline Phosphatase 54 Total Protein 7.1 Albumin 4.4 Urine Color YELLOW Urine Appearance CLEAR Urine pH 6.0 Ur Specific [place] 1.006 Urine Protein NEGATIVE Urine Glucose (UA) NEGATIVE Urine Ketones NEGATIVE Urine Blood NEGATIVE Urine Nitrite NEGATIVE Ur Leukocyte Esterase TRACE H Urine WBC (Auto) 2 Urine RBC (Auto) 1 Assessment & Plan - Diagnosis (1) Acute diverticulitis Is this a current diagnosis for this admission?: Yes (2) Crohns disease Qualifiers: Digestive disease complication type: unspecified complication Is this a current diagnosis for this admission?: Yes - Time Time Spent with patient: 15-24 minutes Medications reviewed and adjusted accordingly: Yes Anticipated discharge: Home Within: Other - Plan Summary Plan Summary: Continues to current medication
[2019-02-10] MEDS ORDERED: IPRATROPIUM/ALBUTEROL 0.5-2.5 MG/3 ML AMPUL NEB PRN (12:30)
[2019-02-10] MEDS ORDERED: ONDANSETRON HCL INJ/PF 4 MG/2 ML SDV IV PRN (12:31)
[2019-02-11] MEDS: METRONIDAZOLE 500 MG/NS RTU 500 MG/100 ML RTUPB IV SCH ×3 (05:20→21:06)
[2019-02-11] MEDS: IRON POLYSACCHARIDES COMPLEX 150 MG CAPSULE PO SCH ×3 (05:20→21:06)
[2019-02-11] MEDS: LEVOFLOXACIN 750 MG/D5W RTU 750 MG/150 ML RTUPB IV SCH (09:49)
[2019-02-11] MEDS: PANTOPRAZOLE SODIUM 40 MG TABLET.DR PO SCH (09:50)
[2019-02-11] MEDS: NYSTATIN CREAM 15 GM TP SCH ×2 (09:50→17:37)
[2019-02-11] MEDS ORDERED: ERGOCALCIFEROL (VITAMIN D2) 50000 UNIT (1.25 MG) CAPSULE PO SCH (10:00)
[2019-02-11] MEDS ORDERED: CYANOCOBALAMIN (VITAMIN B-12) INJ 1000 MCG/1 ML VIAL IM ONE (11:00)
--- NOTE | 2019-02-11 11:02 | PDOC PROGRESS REPORT ---
Subjective Progress Note for:: 02/11/19 Subjective:: Patient was admitted because of the possible diverticulitis Patient also wanted vitamin B12 injections patient also complains some callus and corn in the foot Patient is denied any chest pain to than any shortness of the breath Reason For Visit: FEVER, ACUTE DIVERTICULITIS Physical Exam Vital Signs: Temp Pulse Resp BP Pulse Ox 98.9 F 86 18 126/60 H 97 02/11/19 08:00 02/11/19 09:27 02/11/19 09:27 02/11/19 08:00 02/11/19 09:27 Intake & Output 02/10/19 02/11/19 02/12/19 06:59 06:59 06:59 Intake Total 1670 3910 Balance 1670 3910 Weight 64.3 kg 63.9 kg General appearance: PRESENT: no acute distress, well-developed, well-nourished Head exam: PRESENT: atraumatic, normocephalic Eye exam: PRESENT: conjunctiva pink, EOMI, PERRLA. ABSENT: scleral icterus Ear exam: PRESENT: normal external ear exam Mouth exam: PRESENT: moist, tongue midline Neck exam: PRESENT: full ROM. ABSENT: carotid bruit, JVD, lymphadenopathy, thyromegaly Respiratory exam: PRESENT: clear to auscultation franky Cardiovascular exam: PRESENT: RRR. ABSENT: diastolic murmur, rubs, systolic murmur Pulses: PRESENT: normal dorsalis pedis pul, +2 pedal pulses bilateral Vascular exam: PRESENT: normal capillary refill GI/Abdominal exam: PRESENT: normal bowel sounds, soft. ABSENT: distended, guarding, mass, organolmegaly, rebound, tenderness Rectal exam: PRESENT: deferred Musculoskeletal exam: PRESENT: ambulatory Neurological exam: PRESENT: alert, awake, oriented to person, oriented to place, oriented to time, oriented to situation, CN II-XII grossly intact. ABSENT: motor sensory deficit Psychiatric exam: PRESENT: appropriate affect, normal mood. ABSENT: homicidal ideation, suicidal ideation Skin exam: PRESENT: dry, intact, warm. ABSENT: cyanosis, rash Results Laboratory Results: 02/09/19 19:21 02/09/19 19:21 Assessment & Plan - Diagnosis (1) Acute diverticulitis Is this a current diagnosis for this admission?: Yes (2) Crohns disease Qualifiers: Digestive disease complication type: unspecified complication Is this a current diagnosis for this admission?: Yes - Time Time Spent with patient: 15-24 minutes Medications reviewed and adjusted accordingly: Yes Anticipated discharge: Other Within: Other - Plan Summary Plan Summary: Continues to current medication
[2019-02-11] MEDS: MORPHINE SULFATE 10 MG/ML INJ IV PRN (12:10)
[2019-02-11] MEDS: NORMAL SALINE 1000 ML 1,000 ML IV PRN ×2 (12:20→21:06)
[2019-02-12] MEDS: IRON POLYSACCHARIDES COMPLEX 150 MG CAPSULE PO SCH (05:18)
[2019-02-12] MEDS: METRONIDAZOLE 500 MG/NS RTU 500 MG/100 ML RTUPB IV SCH (05:18)
[2019-02-12 09:04] VITALS: BP 134/64
[2019-02-12] MEDS: LEVOFLOXACIN 750 MG/D5W RTU 750 MG/150 ML RTUPB IV SCH (09:39)
[2019-02-12] MEDS: NYSTATIN CREAM 15 GM TP SCH (09:40)
[2019-02-12] MEDS: PANTOPRAZOLE SODIUM 40 MG TABLET.DR PO SCH (09:40)
--- NOTE | 2019-02-12 19:43 | Left Against Medical Advice ---
Against Medical Advice Admission Date/Time: 02/09/19 17:17 Primary Care Provider: ARACELI CORTEZ MD Date of Patient Emigration: 02/12/19 - Diagnosis: (1) Acute diverticulitis Is this a current diagnosis for this admission?: Yes - Summary: Summary: Please see Admission and Progress Notes as well. MICHAEL CAMEJO is a 68 F, who LEFT AGAINST MEDICAL ADVICE. The Patient was admitted on 02/09/19 17:17.She was admitted for the management of acute diverticulitis, she was treated with intravenous Levaquin and Flagyl patient left AGAINST MEDICAL ADVICE today
[2019-02-15] MEDS ORDERED: CYANOCOBALAMIN (VITAMIN B-12) INJ 1000 MCG/1 ML VIAL IM SCH (10:00)
== END 2019-02-12 13:45 | disposition left against medical advice (07) ==
LOC: ER 16:13 → EH 17:17 → INTOOBSV 17:17 → 4S 18:29
PROVIDERS: ADMIT Internal Medicine; ATTEND Internal Medicine
DX: K57.92 Diverticulitis of intestine, part unspecified, without perforation or abscess without bleeding (principal); K50.90 Crohn's disease, unspecified, without complications; Z53.21 Procedure and treatment not carried out due to patient leaving prior to being seen by health care provider; I10 Essential (primary) hypertension; L84 Corns and callosities; M19.90 Unspecified osteoarthritis, unspecified site; F32.9 Major depressive disorder, single episode, unspecified; Z79.899 Other long term (current) drug therapy; Z90.710 Acquired absence of both cervix and uterus; Z88.6 Allergy status to analgesic agent; Z88.1 Allergy status to other antibiotic agents; Z88.0 Allergy status to penicillin; Z88.2 Allergy status to sulfonamides; Z88.8 Allergy status to other drugs, medicaments and biological substances
CPT/HCPCS: 99284; 36415; 87040; 87086; 85025; 80076; 80048; 81001; 87493; 94640; G0378 ×3; J3420; A9270 ×4; J3490 ×11; J2270 ×3; J7030 ×3; J1956 ×4

== ENCOUNTER 2019-02-19 21:40 | Emergency (ER) | payer MEDICARE, MEDICAID ==
--- NOTE | 2019-02-19 23:31 | ER Document Report ---
HPI - HPI Time Seen by Provider: 02/19/19 23:15 Pain Level: 2 Notes: Patient is a 68-year-old female who presents complaining of a cat bite to multiple areas of her bilateral arms that occurred this afternoon. Patient states that she is still relieves her extremities without any difficulties otherwise, but needed to get evaluated because she has not had a tetanus in over 5 years. She is eating and drinking without difficulty. She is urinating normally. No other concerns or complaints aside from noticing some redness to to the bites on the left forearm. Denies any headache, fever, neck pain, URI, sore throat, chest pain, palpitations, syncope, cough, shortness of breath, wheeze, dyspnea, abdominal pain, nausea/vomiting/diarrhea, urinary retention, dysuria, hematuria, loss of control of bowel or bladder, numbness/tingling, muscle paralysis/weakness, or rash. - ROS Systems Reviewed and Negative: Yes All other systems reviewed and negative - REPRODUCTIVE Reproductive: DENIES: : Past Medical History - Social History Smoking Status: Never Smoker Family History: Arthritis, CAD, CVA, DM, Hyperlipidemia, Hypertension, Malignancy, Thyroid Disfunction - Past Medical History Cardiac Medical History: Reports: Hx Hypertension Denies: Hx Congestive Heart Failure, Hx Heart Attack Pulmonary Medical History: Reports: Hx Asthma, Hx Bronchitis, Hx Pneumonia Denies: Hx COPD, Hx Tuberculosis Neurological Medical History: Denies: Hx Seizures Renal/ Medical History: Denies: Hx End Stage Renal Disease, Hx Peritoneal Dialysis GI Medical History: Reports: Hx Crohn's Disease, Hx Diverticulitis, Hx Gastroesophageal Reflux Disease, Hx Hiatal Hernia, Hx Irritable Bowel. Denies: Hx Cirrhosis, Hx Hepatitis Musculoskeletal Medical History: Reports Hx Arthritis, Reports Hx Musculoskeletal Deformity, Reports Hx Musculoskeletal Trauma Psychiatric Medical History: Reports: Hx Anxiety, Hx Depression Denies: Hx Bipolar Disorder Infectious Medical History: Denies: Hx Hepatitis Past Surgical History: Reports: Hx Abdominal Surgery - small intestine removal, Hx Appendectomy, Hx Bowel Surgery - small intestine, Hx Breast Surgery - biopsy, Hx Hysterectomy, Hx Neurologic Surgery - brain tumor removed, Hx Tonsillectomy. Denies: Hx Mastectomy, Hx Pacemaker - Immunizations Immunizations up to date: Yes Hx Diphtheria, Pertussis, Tetanus Vaccination: Yes - 09/2010 Hx Pneumococcal Vaccination: 08/24/10 Vertical Provider Document - CONSTITUTIONAL Agree With Documented VS: Yes Notes: PHYSICAL EXAMINATION: GENERAL: Well-appearing, well-nourished and in no acute distress. HEAD: Atraumatic, normocephalic. NECK: Normal range of motion, supple without lymphadenopathy. No midline tenderness. LUNGS: Breath sounds clear to auscultation bilaterally and equal. No wheezes rales or rhonchi. HEART: Regular rate and rhythm without murmurs, rubs, gallops. Musculoskeletal: B/L forearms: Several punctures noted with 2 of them on the left forearm being mildly erythemic and mildly swollen w/o any streaks, purulence, or fluctuance. N/V intact distal. FROM to passive/active at the wrist. Strength 5+/5. No bony tenderness. Extremities: No cyanosis, clubbing, or edema b/l. Peripheral pulses 2+. Capillary refill less than 3 seconds. NEUROLOGICAL: Normal speech, normal gait. Normal sensory, motor exams otherwise unremarkable PSYCH: Normal mood, normal affect. SKIN: see above. No rash - INFECTION CONTROL TRAVEL OUTSIDE OF THE [place] IN LAST 30 DAYS: No COUNTRY TRAVELED TO/FROM: [facility] Course - Re-evaluation Re-evalutation: 02/19/19 23:40 Pt has been adamant about not having any oral antibiotics. Reviewed literature and uptodate while correlating with her allergy list and consulting with Dr. Wiley. We have agreed to send her home with Clindamycin and Keflex. Pt received one injection of Rocephin as well as her tetanus here. Thoroughly reviewed the importance of the antibiotic and wound management with the patient. The patient has agreed to take the medicines home and speak with her PCM in the morning. Risk/benefit thoroughly understood with witness, Dottie SOLIS, in the room. Pt is aware she can become very sick if the wounds get worse. Patient is otherwise an afebrile, well-hydrated, 68-year-old female with cat bites to her forearms bilaterally. Vitals are acceptable without significant tachycardia, tachypnea, or hypoxia. PE is otherwise unremarkable for any neurovascular compromise, obvious tendon/leg rupture, obvious fracture/dislocation, septic joint, abscess. Patient is nontoxic-appearing is able to tolerate p.o. without difficulty. No further work-up warranted at this time. Low suspicion for any necrotizing fasciitis, SJS, SSS, drug reaction, sepsis, meningitis, syphilis, Lyme disease, [place] spotted fever, or other systemic emergent condition at this time. Patient aware that condition can change from initial presentation and he needs to monitor symptoms closely and seek medical attention with any acute changes. Recheck with your PCM in 2 to 3 days. Return to the ED with any other worsening/concerning symptoms as reviewed. Patient is in agreement. - Vital Signs Vital signs: Temp Pulse Resp BP Pulse Ox 98.5 F 89 20 139/72 H 98 02/19/19 21:46 02/19/19 21:46 02/19/19 21:46 02/19/19 21:46 02/19/19 21:46 Discharge - Discharge Clinical Impression: Cat bite Qualifiers: Encounter type: initial encounter Qualified Code(s): W55.01XA - Bitten by cat, initial encounter Condition: Stable Disposition: HOME, SELF-CARE Instructions: Animal Bites ([facility]) Additional Instructions: Keep the skin clean Wash with soap and water Tylenol/ibuprofen if needed Triple antibiotic ointment daily Take medication as directed Monitor for any worsening symptoms Recheck with your PCM in 2-3 days Return to the ED with any worsening symptoms and/or development of fever, headache, chest pain, palpitations, syncope, shortness of breath, trouble breathing, abdominal pain, n/v/d, abscess, purulent discharge, red streaks, worsening swelling, or other worsening symptoms that are concerning to you. Prescriptions: Cephalexin Monohydrate [Keflex 500 mg Capsule] 500 mg PO TID #30 capsule Clindamycin HCl [Cleocin 300 mg Capsule] 600 mg PO TID #60 capsule Forms: Elevated Blood Pressure Referrals: ARACELI CORTEZ MD [Primary Care Provider] - 02/21/19
[2019-02-19] MEDS ORDERED: DIPH/PERTUSS(ACELL)/TETANUS VAC/PF 0.5 ML SYR (>=10YO) IM ONE (23:32)
[2019-02-19] MEDS ORDERED: CEFTRIAXONE INJ 1000 MG VIAL IM ONE (23:35)
[2019-02-19] MEDS ORDERED: LIDOCAINE 1% INJ-PF (10 MG/ML) 30 ML SDV IM ONE (23:35)
[2019-02-20 03:34] VITALS: BP 148/78
== END 2019-02-19 23:56 | disposition home or self-care (01) ==
LOC: ER 21:40
DX: S41.152A Open bite of left upper arm, initial encounter (principal); S41.151A Open bite of right upper arm, initial encounter; W55.01XA Bitten by cat, initial encounter; Z90.710 Acquired absence of both cervix and uterus; I10 Essential (primary) hypertension; Z23 Encounter for immunization
CPT/HCPCS: 99283; 96372; 90471; 90715; J3490; J0696

== ENCOUNTER 2019-02-22 15:36 | Emergency (ER) | payer MEDICARE, MEDICAID ==
[2019-02-22 16:04] VITALS: BP 134/78
--- NOTE | 2019-02-22 17:36 | ER Document Report ---
HPI - HPI Patient complains to provider of: requesting B12 shot Time Seen by Provider: 02/22/19 16:55 Pain Level: Denies Context: 68-year-old female very well-known to this emergency department presents with chief complaint of request of vitamin B long-term and "I need a shot of Toradol". Patient is in no acute distress. Patient complains of some neck pain, denies any neck stiffness, denies headache, denies any other symptoms at all. She is perseverating that she just needs her shots. No other complaints. - CONSTITUTIONAL Constitutional: DENIES: Fever, Chills - REPRODUCTIVE Reproductive: DENIES: : Past Medical History - Social History Smoking Status: Never Smoker Chew tobacco use (# tins/day): No Frequency of alcohol use: None Drug Abuse: None Family History: Arthritis, CAD, CVA, DM, Hyperlipidemia, Hypertension, Malignancy, Thyroid Disfunction Patient has suicidal ideation: No Patient has homicidal ideation: No - Past Medical History Cardiac Medical History: Reports: Hx Hypertension Denies: Hx Congestive Heart Failure, Hx Heart Attack Pulmonary Medical History: Reports: Hx Asthma, Hx Bronchitis, Hx Pneumonia Denies: Hx COPD, Hx Tuberculosis Neurological Medical History: Denies: Hx Seizures Renal/ Medical History: Denies: Hx End Stage Renal Disease, Hx Peritoneal Dialysis GI Medical History: Reports: Hx Crohn's Disease, Hx Diverticulitis, Hx Gastroesophageal Reflux Disease, Hx Hiatal Hernia, Hx Irritable Bowel. Denies: Hx Cirrhosis, Hx Hepatitis Musculoskeletal Medical History: Reports Hx Arthritis, Reports Hx Musculoskeletal Deformity, Reports Hx Musculoskeletal Trauma Psychiatric Medical History: Reports: Hx Anxiety, Hx Depression Denies: Hx Bipolar Disorder Infectious Medical History: Denies: Hx Hepatitis Past Surgical History: Reports: Hx Abdominal Surgery - small intestine removal, Hx Appendectomy, Hx Bowel Surgery - small intestine, Hx Breast Surgery - biopsy, Hx Hysterectomy, Hx Neurologic Surgery - brain tumor removed, Hx Tonsillectomy. Denies: Hx Mastectomy, Hx Pacemaker - Immunizations Immunizations up to date: Yes Hx Diphtheria, Pertussis, Tetanus Vaccination: Yes - 09/2010 Hx Pneumococcal Vaccination: 08/24/10 Vertical Provider Document - CONSTITUTIONAL Notes: PHYSICAL EXAMINATION: Reviewed vital signs and charting by RN GENERAL: Alert, interacts well. No acute distress. HEAD: Normocephalic, atraumatic. EYES: Pupils equal and round. Extraocular movements intact. Pale conjunctivae ENT: Oral mucosa moist, tongue midline. NECK: Full range of motion. Trachea midline. EXTREMITIES: Moves all 4 extremities spontaneously. No edema, No cyanosis. PSYCH: Normal affect, normal mood. SKIN: Warm, dry, normal turgor. No rashes or lesions noted. - INFECTION CONTROL TRAVEL OUTSIDE OF THE [place] IN LAST 30 DAYS: No COUNTRY TRAVELED TO/FROM: [place] Course - Re-evaluation Re-evalutation: 02/22/19 17:38 Patient is demanding that we give her her vitamin B12 shots and is demanding a shot of Toradol. I told her I am not comfortable giving her the Toradol as she is above the age of [age] years old and it is generally not safe to give this medication to this patient population. She became argumentative. I had the nurse give her her vitamin B12 shots. She has no other complaints or issues. She is stable for discharge. - Vital Signs Vital signs: Temp Pulse Resp BP Pulse Ox 97.7 F 80 16 134/78 H 100 02/22/19 16:03 02/22/19 16:03 02/22/19 16:03 02/22/19 16:03 02/22/19 16:03 Discharge - Discharge Clinical Impression: Medication administered Condition: Good Disposition: HOME, SELF-CARE Additional Instructions: You were seen in the emergency department for administration of your vitamin B12 shot. The nurses helped you with that. This is something that you can do at home. You should be able to pickling operator needles from the pharmacy. Please return to the emergency department if you passout, get altered mental status, become acutely confused, get paralysis in one or more of your extremities, have acute shortness of breath or chest pain, or any other concerning symptoms. Referrals: ARACELI CORTEZ MD [Primary Care Provider] - Follow up as needed
== END 2019-02-22 17:34 | disposition home or self-care (01) ==
LOC: ER 15:36
DX: M54.2 Cervicalgia (principal); I10 Essential (primary) hypertension; Z79.899 Other long term (current) drug therapy
CPT/HCPCS: 99283

== ENCOUNTER 2019-04-15 02:54 | Emergency (ER) | payer MEDICARE, MEDICAID ==
[2019-04-15 07:29] VITALS: BP 157/82
[2019-04-15] MEDS ORDERED: KETOROLAC TROMETHAMINE 60 MG/2 ML SDV IM ONE (07:39)
[2019-04-15] MEDS ORDERED: MAGNESIUM CITRATE 296 ML BOTTLE PO ONE (07:41)
--- NOTE | 2019-04-15 07:53 | ER Document Report ---
Entered by YAMILET MANZANARES SCRIBE 04/15/19 0739 Acting as scribe for:MIKE GRIGGS MD ED General - General Chief Complaint: Knee Pain Stated Complaint: KNEE PAIN Time Seen by Provider: 04/15/19 07:28 Primary Care Provider: ARACELI CORTEZ MD [Primary Care Provider] - Follow up as needed Mode of Arrival: Ambulatory Information source: Patient Notes: 68-year-old female well-known to this emergency department presents today with complaints of "hurting in my bone". Patient indicates she has pain in her right hip and right knee as well as her low back, all of which is chronic. Patient then adds that she would like "something for constipation". TRAVEL OUTSIDE OF THE [place] IN LAST 30 DAYS: No COUNTRY TRAVELED TO/FROM: [place] - Related Data Allergies/Adverse Reactions: aspirin Allergy (Severe, Verified 02/19/19 21:42) Anaphylaxis Penicillins Allergy (Severe, Verified 02/20/19 15:49) Anaphylaxis hydrocodone [From Vicodin] Allergy (Intermediate, Verified 02/19/19 21:42) Anaphylaxis Sulfa (Sulfonamide Antibiotics) Allergy (Intermediate, Verified 02/19/19 21:42) iching, nausea codeine Allergy (Mild, Verified 02/19/19 21:42) Diarrhea meperidine HCl [From Demerol] Allergy (Mild, Verified 02/19/19 21:42) heart palpitations ciprofloxacin Adverse Reaction (Verified 02/19/19 21:42) NAUSEA, ITCHING Past Medical History - General Information source: Patient - Social History Smoking Status: Unknown if Ever Smoked Cigarette use (# per day): No Frequency of alcohol use: None Drug Abuse: None Lives with: Family Family History: Reviewed & Not Pertinent, Arthritis, CAD, CVA, DM, Hyperlipidemia, Hypertension, Malignancy, Thyroid Disfunction Patient has suicidal ideation: No Patient has homicidal ideation: No - Past Medical History Cardiac Medical History: Reports: Hx Hypertension Pulmonary Medical History: Reports: Hx Asthma, Hx Bronchitis, Hx Pneumonia GI Medical History: Reports: Hx Crohn's Disease, Hx Diverticulitis, Hx Gastroesophageal Reflux Disease, Hx Hiatal Hernia, Hx Irritable Bowel Musculoskeletal Medical History: Reports Hx Arthritis, Reports Hx Musculoskeletal Deformity, Reports Hx Musculoskeletal Trauma Psychiatric Medical History: Reports: Hx Anxiety, Hx Depression Past Surgical History: Reports: Hx Abdominal Surgery - small intestine removal, Hx Appendectomy, Hx Bowel Surgery - small intestine, Hx Breast Surgery - biopsy, Hx Hysterectomy, Hx Neurologic Surgery - brain tumor removed, Hx Tonsillectomy - Immunizations Immunizations up to date: Yes Hx Diphtheria, Pertussis, Tetanus Vaccination: Yes - 09/2010 Hx Pneumococcal Vaccination: 08/24/10 Review of Systems - Review of Systems Constitutional: No symptoms reported EENT: No symptoms reported Cardiovascular: No symptoms reported Respiratory: No symptoms reported Gastrointestinal: See HPI, Constipation Genitourinary: No symptoms reported Female Genitourinary: No symptoms reported Musculoskeletal: See HPI, Back pain, Joint pain - right knee, right hip Skin: No symptoms reported Hematologic/Lymphatic: No symptoms reported Neurological/Psychological: No symptoms reported -: Yes All other systems reviewed and negative Physical Exam - Vital signs Vitals: Temp Pulse Resp BP Pulse Ox 98 F 78 16 157/70 H 98 04/15/19 02:57 04/15/19 02:57 04/15/19 02:57 04/15/19 02:57 04/15/19 02:57 - Notes Notes: Physical Exam: General: Alert, appears well. HEENT: Normocephalic. Atraumatic. PERRLA. Extraocular movements intact. Oropharynx clear. Neck: Supple. Respiratory: No respiratory distress. Abdominal: Normal Inspection. No distension. Extremities: Moves all four extremities. Wearing brace on right knee. Minimal discomfort with palpation of the right lateral knee, right hip, and right lower back. Neurological: Normal cognition. AAOx4. Normal speech. Psychological: Normal affect. Normal Mood. Skin: Warm. Dry. Normal color. Course - Vital Signs Vital signs: Temp Pulse Resp BP Pulse Ox 97.9 F 63 14 157/82 H 100 04/15/19 07:28 04/15/19 07:28 04/15/19 07:28 04/15/19 07:28 04/15/19 07:28 Discharge - Discharge Clinical Impression: Chronic pain of right knee Chronic right-sided low back pain Qualifiers: Sciatica presence: without sciatica Qualified Code(s): M54.5 - Low back pain; G89.29 - Other chronic pain Constipation Qualifiers: Constipation type: unspecified constipation type Qualified Code(s): K59.00 - Constipation, unspecified Condition: Stable Disposition: HOME, SELF-CARE Additional Instructions: Follow-up with Dr. Cortez this week if not improving. Referrals: ARACELI CORTEZ MD [Primary Care Provider] - Follow up as needed Scribe Attestation: 04/15/19 07:43 I personally performed the services described in the documentation, reviewed and edited the documentation which was dictated to the scribe in my presence, and it accurately records my words and actions. I personally performed the services described in the documentation, reviewed and edited the documentation which was dictated to the scribe in my presence, and it accurately records my words and actions.
== END 2019-04-15 08:06 | disposition home or self-care (01) ==
LOC: ER 02:54
DX: G89.29 Other chronic pain (principal); M25.561 Pain in right knee; M54.5 Low back pain; K59.00 Constipation, unspecified; I10 Essential (primary) hypertension; Z90.710 Acquired absence of both cervix and uterus; Z88.6 Allergy status to analgesic agent; Z88.0 Allergy status to penicillin; Z88.2 Allergy status to sulfonamides
CPT/HCPCS: 99283; 96374; J1885; J3490

== ENCOUNTER 2019-05-03 13:02 | Observation (INO) | payer MEDICARE, MEDICAID ==
--- NOTE | 2019-05-03 14:15 | ER Document Report ---
ED Medical Screen (RME) - General Chief Complaint: Abdominal Pain Stated Complaint: ABDOMINAL PAIN Time Seen by Provider: 05/03/19 14:14 Primary Care Provider: ARACELI CORTEZ MD [Primary Care Provider] - Follow up as needed Mode of Arrival: Ambulatory Information source: Patient Notes: 68-year-old female presented to ED for to be admitted by Dr. Cortez. She is complaining of abdominal pain nausea and vomiting and abdominal bloating. She is alert oriented respirations regular and unlabored speaking in full sentences walks with even steady gait. I have greeted and performed a rapid initial assessment of this patient. A comprehensive ED assessment and evaluation of the patient, analysis of test results and completion of medical decision making process will be conducted by an additional ED providers. TRAVEL OUTSIDE OF THE [place] IN LAST 30 DAYS: No COUNTRY TRAVELED TO/FROM: [place] - Related Data Allergies/Adverse Reactions: aspirin Allergy (Severe, Verified 05/03/19 13:04) Anaphylaxis Penicillins Allergy (Severe, Verified 05/03/19 13:04) Anaphylaxis hydrocodone [From Vicodin] Allergy (Intermediate, Verified 05/03/19 13:04) Anaphylaxis Sulfa (Sulfonamide Antibiotics) Allergy (Intermediate, Verified 05/03/19 13:04) iching, nausea codeine Allergy (Mild, Verified 05/03/19 13:04) Diarrhea meperidine HCl [From Demerol] Allergy (Mild, Verified 05/03/19 13:04) heart palpitations ciprofloxacin Adverse Reaction (Verified 05/03/19 13:04) NAUSEA, ITCHING Past Medical History - Social History Chew tobacco use (# tins/day): No Frequency of alcohol use: None Drug Abuse: None Family history: Reviewed & Not Pertinent - Past Medical History Cardiac Medical History: Reports: Hx Hypertension Denies: Hx Congestive Heart Failure, Hx Heart Attack Pulmonary Medical History: Reports: Hx Asthma, Hx Bronchitis, Hx Pneumonia Denies: Hx COPD, Hx Tuberculosis Neurological Medical History: Denies: Hx Seizures Renal/ Medical History: Denies: Hx End Stage Renal Disease, Hx Peritoneal Dialysis GI Medical History: Reports: Hx Crohn's Disease, Hx Diverticulitis, Hx Gastroesophageal Reflux Disease, Hx Hiatal Hernia, Hx Irritable Bowel. Denies: Hx Cirrhosis, Hx Hepatitis Musculoskeltal Medical History: Reports Hx Arthritis, Reports Hx Musculoskeletal Deformity, Reports Hx Musculoskeletal Trauma Psychiatric Medical History: Reports: Hx Anxiety, Hx Depression Denies: Hx Bipolar Disorder Infectious Medical History: Denies: Hx Hepatitis Past Surgical History: Reports: Hx Abdominal Surgery - small intestine removal, Hx Appendectomy, Hx Bowel Surgery - small intestine, Hx Breast Surgery - biopsy, Hx Hysterectomy, Hx Neurologic Surgery - brain tumor removed, Hx Tonsillectomy. Denies: Hx Mastectomy, Hx Pacemaker - Immunizations Immunizations up to date: Yes Hx Diphtheria, Pertussis, Tetanus Vaccination: Yes - 09/2010 History of Influenza Vaccine for 05/2017 - 10/2017 Season: Yes Physical Exam - Vital signs Vitals: Temp Pulse Resp BP Pulse Ox 98.9 F 95 18 126/73 H 99 05/03/19 13:16 05/03/19 13:16 05/03/19 13:16 05/03/19 13:16 05/03/19 13:16 Course - Vital Signs Vital signs: Temp Pulse Resp BP Pulse Ox 98.9 F 95 18 126/73 H 99 05/03/19 13:16 05/03/19 13:16 05/03/19 13:16 05/03/19 13:16 05/03/19 13:16 Doctor's Discharge - Discharge Referrals: ARACELI CORTEZ MD [Primary Care Provider] - Follow up as needed
[2019-05-03 14:30] LABS: ABSOLUTE BASOPHILS # (AUTO) 0.1 10^3/uL (0.0-0.2); ABSOLUTE EOSINOPHILS # (AUTO) 0.1 10^3/uL (0.0-0.6); ABSOLUTE LYMPHOCYTES (AUTO) 1.5 10^3/uL (0.5-4.7); ABSOLUTE NEUT (AUTO) 9.7 10^3/uL (1.7-8.2); BASOPHILS % (AUTO) 0.9 % (0-2); EOSINOPHILS % (AUTO) 1.1 % (0-6); HEMATOCRIT 42.8 % (36.0-47.0); HEMOGLOBIN 14.8 g/dL (12.0-15.5); LYMPHOCYTES % (AUTO) 12.3 % (13-45); MEAN CORPUSCULAR HEMOGLOBIN 33.6 pg (27.0-33.4); MEAN CORPUSCULAR HGB CONC 34.6 g/dL (32.0-36.0); MEAN CORPUSCULAR VOLUME 97 fl (80-97); MONOCYTES % (AUTO) 7.7 % (3-13); PLATELET COUNT 398 10^3/uL (150-450); RED BLOOD COUNT 4.41 10^6/uL (3.72-5.28); RED CELL DISTRIBUTION WIDTH 13.8 % (11.5-14.0); TOTAL CELLS COUNTED % (AUTO) 100 %; WHITE BLOOD COUNT 12.4 10^3/uL (4.0-10.5)
[2019-05-03] MEDS: HYDROMORPHONE HCL INJ/PF 2 MG/ML AMPULE IV PRN (14:43)
[2019-05-03 14:46] LABS: ALBUMIN 4.6 g/dL (3.5-5.0); ALKALINE PHOSPHATASE 64 U/L (38-126); ANION GAP 11 (5-19); ASPARTATE AMINO TRANSFERASE 20 U/L (14-36); BILIRUBIN,DIRECT 0.1 mg/dL (0.0-0.4); BILIRUBIN,TOTAL 1.3 mg/dL (0.2-1.3); BLOOD UREA NITROGEN 11 mg/dL (7-20); CALCIUM 9.8 mg/dL (8.4-10.2); CARBON DIOXIDE 26 mmol/L (22-30); CHLORIDE 101 mmol/L (98-107); GLUCOSE 83 mg/dL (75-110); POTASSIUM 4.2 mmol/L (3.6-5.0); TOTAL PROTEIN 7.7 g/dL (6.3-8.2)
[2019-05-03] MEDS ORDERED: LEVOFLOXACIN RTU 750 MG/D5W 150 ML IV SCH (15:00)
[2019-05-03] MEDS: METRONIDAZOLE 500 MG/NS RTU 500 MG/100 ML RTUPB IV SCH ×2 (17:34→23:52)
[2019-05-03] MEDS: LEVOFLOXACIN 750 MG/D5W RTU 750 MG/150 ML RTUPB IV SCH (17:35)
[2019-05-03 18:10] LABS: APPEARANCE,URINE SLIGHTLY-CLOUDY; BILIRUBIN,URINE NEGATIVE (NEGATIVE); COLOR,URINE AMBER; GLUCOSE, URINE NEGATIVE (NEGATIVE); KETONES,URINE 20 mg/dL (NEGATIVE); LEUKOCYTE ESTERASE,URINE SMALL (NEGATIVE); NITRITE,URINE POSITIVE (NEGATIVE); PROTEIN,URINE NEGATIVE (NEGATIVE); URINE SPECIFIC GRAVITY 1.017
[2019-05-03 18:31] LABS: ADD MANUAL MICROSCOPIC YES; BACTERIA,URINE 4+ /HPF; WBC,URINE 20-30 /HPF
[2019-05-03] MEDS ORDERED: METRONIDAZOLE RTU 500 MG/NS 100 ML IV SCH (22:00)
--- NOTE | 2019-05-03 22:58 | PDOC H&P ---
History of Present Illness Admission Date/PCP: 05/03/19 15:08 ARACELI CORTEZ MD History of Present Illness: MICHAEL CAMEJO is a 68 year old female,She came to the office for evaluation of abdominal pain, she was examined there was tenderness of the abdomen on palpation, it was more significant in the lower abdomen. She has a history of recurrent acute diverticulitis with multiple hospitalization for the management of this condition. Patient was very dramatic with her symptoms in the office, she stated that she was vomiting and that she was unable to to tolerate p.o. medication I attempted to treat patient outpatient with antibiotic knowing her history of recurrent diverticulitis but she insisted that the plan would not be effective because she was vomiting. She was admitted directly from the office into the hospital for the management of her symptoms, a CAT scan of the pelvis and abdomen was obtained with IV contrast demonstrated acute sigmoid diverticulitis Past Medical History Cardiac Medical History: Reports: Hypertension Pulmonary Medical History: Reports: Asthma, Bronchitis, Pneumonia GI Medical History: Reports: Crohn's Disease, Diverticulitis, Gastroesophageal Reflux Disease, Hiatal Hernia Musculoskeltal Medical History: Reports: Arthritis Psychiatric Medical History: Reports: Depression Hematology: Reports: Anemia Past Surgical History Past Surgical History: Reports: Appendectomy, Hysterectomy, Tonsillectomy Social History Smoking Status: Former Smoker Frequency of Alcohol Use: None Hx Recreational Drug Use: No Drugs: None Hx Prescription Drug Abuse: No - Advance Directive Resuscitation Status: Full Code Family History Family History: Reviewed & Not Pertinent, Arthritis, CAD, CVA, DM, Hyperlipidemia, Hypertension, Malignancy, Thyroid Disfunction Parental Family History Reviewed: Yes Children Family History Reviewed: Yes Sibling(s) Family History Reviewed.: Yes Medication/Allergy Home Medications: Albuterol Sulfate [Proair HFA Inhalation Aerosol 8.5 gm MDI] 2 puff IH Q6HP PRN 12/26/18 Cyanocobalamin (Vitamin B-12) [Vitamin B-12 Inj 1000 Mcg/1 ml Vial] 1 ml IM TH@99912/26/18 Dexlansoprazole [Dexilant 60 mg Capsule] 60 mg PO DAILY 12/26/18 Ergocalciferol (Vitamin D2) [Drisdol 50,000 unit (1.25MG) Capsule] 50,000 unit PO JORGE@99912/26/18 Ibandronate Sodium [Boniva] 150 mg PO .MONTHLY 12/26/18 Iron Aspgly,Ps/C/Succinic Acid [Ferrex 150 Plus Capsule] 1 cap PO QID 12/26/18 Triamcinolone Acetonide [Aristocort 0.5% Cream 15 gm] 1 applic TOP BIDP PRN 12/26/18 Meclizine HCl [Antivert 25 mg Tablet] 25 mg PO TIDP PRN 02/09/19 Nystatin [Mycostatin Cream] 1 applic TP BID 02/09/19 Cyclobenzaprine HCl [Flexeril 10 mg Tablet] 10 mg PO TID 05/03/19 Diltiazem HCl [Cardizem Cd 120 mg Capsule] 1 cap.sr PO DAILY 05/03/19 Hydroxyzine Pamoate [Vistaril 25 mg Capsule] 25 mg PO Q8HP PRN 05/03/19 Allergies/Adverse Reactions: aspirin Allergy (Severe, Verified 05/03/19 13:04) Anaphylaxis Penicillins Allergy (Severe, Verified 05/03/19 13:04) Anaphylaxis hydrocodone [From Vicodin] Allergy (Intermediate, Verified 05/03/19 13:04) Anaphylaxis Sulfa (Sulfonamide Antibiotics) Allergy (Intermediate, Verified 05/03/19 13:04) iching, nausea codeine Allergy (Mild, Verified 05/03/19 13:04) Diarrhea meperidine HCl [From Demerol] Allergy (Mild, Verified 05/03/19 13:04) heart palpitations ciprofloxacin Adverse Reaction (Verified 05/03/19 13:04) NAUSEA, ITCHING Review of Systems Constitutional: ABSENT: chills, fever(s), headache(s), weight gain, weight loss Eyes: ABSENT: visual disturbances Ears: ABSENT: hearing changes Cardiovascular: ABSENT: chest pain, dyspnea on exertion, edema, orthropnea, palpitations Respiratory: ABSENT: cough, hemoptysis Gastrointestinal: PRESENT: abdominal pain, nausea, vomiting Genitourinary: ABSENT: dysuria, hematuria Musculoskeletal: ABSENT: joint swelling Integumentary: ABSENT: rash, wounds Neurological: ABSENT: abnormal gait, abnormal speech, confusion, dizziness, focal weakness, syncope Psychiatric: ABSENT: anxiety, depression, homidical ideation, suicidal ideation Endocrine: ABSENT: cold intolerance, heat intolerance, menstrual abnormalities, polydipsia, polyuria Hematologic/Lymphatic: ABSENT: easy bleeding, easy bruising, lymphadenopathy Physical Exam Vital Signs: Temp Pulse Resp BP Pulse Ox 98.7 F 80 16 150/66 H 100 05/03/19 20:36 05/03/19 20:36 05/03/19 20:36 05/03/19 20:36 05/03/19 20:36 Intake & Output 05/02/19 05/03/19 05/04/19 06:59 06:59 06:59 Weight 62.8 kg General appearance: PRESENT: no acute distress, well-developed, well-nourished Head exam: PRESENT: atraumatic, normocephalic Eye exam: PRESENT: conjunctiva pink, EOMI, PERRLA Ear exam: PRESENT: normal external ear exam Mouth exam: PRESENT: moist, tongue midline Neck exam: PRESENT: full ROM Respiratory exam: PRESENT: clear to auscultation franky Cardiovascular exam: PRESENT: RRR, +S1, +S2 Pulses: PRESENT: normal dorsalis pedis pul, +2 pedal pulses bilateral Vascular exam: PRESENT: normal capillary refill GI/Abdominal exam: PRESENT: normal bowel sounds, soft, tenderness Rectal exam: PRESENT: deferred Neurological exam: PRESENT: alert, CN II-XII grossly intact Psychiatric exam: PRESENT: appropriate affect, normal mood Skin exam: PRESENT: dry, intact, warm Results Laboratory Results: 05/03/19 14:00 05/03/19 14:00 05/03/19 05/03/19 05/03/19 14:00 14:00 17:35 WBC 12.4 H RBC 4.41 Hgb 14.8 Hct 42.8 MCV 97 MCH 33.6 H MCHC 34.6 RDW 13.8 Plt Count 398 Seg Neutrophils % 78.0 Sodium 138.4 Potassium 4.2 Chloride 101 Carbon Dioxide 26 Anion Gap 11 BUN 11 Creatinine 0.77 Est GFR ( Amer) > 60 Glucose 83 Calcium 9.8 Total Bilirubin 1.3 AST 20 Alkaline Phosphatase 64 Total Protein 7.7 Albumin 4.6 Urine Color DAWIT Urine Appearance SLIGHTLY-CLOUDY Urine pH 5.0 Ur Specific [place] 1.017 Urine Protein NEGATIVE Urine Glucose (UA) NEGATIVE Urine Ketones 20 H Urine Blood NEGATIVE Urine Nitrite POSITIVE H Ur Leukocyte Esterase SMALL H Ur Squamous Epith Cells MANY Assessment & Plan - Diagnosis (1) Diverticulitis of colon (without mention of hemorrhage) Is this a current diagnosis for this admission?: Yes Plan: Patient is admitted for the management of acute Diverticulitis of the colon
--- NOTE | 2019-05-04 01:55 | RADIOLOGY REPORT (SQ) ---
CLINICAL HISTORY: ab pain COMPARISON: None. TECHNIQUE: CT ABDOMEN PELVIS WITH IV CONTRAST on 05/03/2019 12:00 AM CDT This exam was performed according to our departmental dose-optimization program, which includes automated exposure control, adjustment of the mA and/or kV according to patient size and/or use of iterative reconstruction technique. FINDINGS: Lower lungs are clear. Abdomen: The liver is normal in appearance. There is no biliary dilatation. There is a small hiatal hernia. Gallbladder is normal in appearance. The pancreas and spleen are normal in appearance. The adrenal glands and kidneys are unremarkable. Abdominal aorta is normal in course and caliber without aneurysm. There is no free air. There is no retroperitoneal adenopathy. Pelvis: There is moderate thickening of the mid sigmoid colon with surrounding inflammation. There are multiple diverticula in the distal colon. Urinary bladder is unremarkable. There is no free fluid. Hysterectomy was performed. Appendix is not seen. Skeleton: There are no acute osseous findings. No suspicious bony lesions. IMPRESSION: Sigmoid acute diverticulitis.
[2019-05-04] MEDS: METRONIDAZOLE 500 MG/NS RTU 500 MG/100 ML RTUPB IV SCH ×3 (05:43→21:35)
[2019-05-04] MEDS: HYDROMORPHONE HCL INJ/PF 2 MG/ML AMPULE IV PRN ×2 (05:55→11:58)
[2019-05-04] MEDS: LEVOFLOXACIN 750 MG/D5W RTU 750 MG/150 ML RTUPB IV SCH (09:51)
[2019-05-04] MEDS: PANTOPRAZOLE SODIUM 40 MG TABLET.DR PO SCH (09:54)
[2019-05-04] MEDS ORDERED: CYANOCOBALAMIN (VITAMIN B-12) INJ 1000 MCG/1 ML VIAL SUBCUT SCH (10:00)
[2019-05-04] MEDS ORDERED: CYANOCOBALAMIN (VITAMIN B-12) INJ 1000 MCG/1 ML VIAL IM SCH (10:00)
[2019-05-04] MEDS: NYSTATIN CREAM 15 GM TP SCH ×2 (10:01→17:31)
[2019-05-04] MEDS: ONDANSETRON HCL INJ/PF 4 MG/2 ML SDV IV PRN (15:16)
[2019-05-04] MEDS: NORMAL SALINE 1000 ML 1,000 ML IV PRN (21:35)
[2019-05-04] MEDS ORDERED: ALBUTEROL SULFATE HFA (90 MCG/PUFF) 200 PUFF/8.5 GM MDI IH PRN (21:39)
--- NOTE | 2019-05-04 21:42 | PDOC PROGRESS REPORT ---
Subjective Progress Note for:: 05/04/19 Subjective:: Patient was admitted yesterday for the management of acute diverticulitis Reason For Visit: ABDOMINAL PAIN Physical Exam Vital Signs: Temp Pulse Resp BP Pulse Ox 98.4 F 71 16 139/61 H 100 05/04/19 16:42 05/04/19 16:42 05/04/19 16:42 05/04/19 16:42 05/04/19 16:42 Intake & Output 05/03/19 05/04/19 05/05/19 06:59 06:59 06:59 Intake Total 1220 830 Output Total 500 Balance 1220 330 Weight 62.8 kg General appearance: PRESENT: no acute distress Eye exam: PRESENT: PERRLA Respiratory exam: PRESENT: clear to auscultation franky Cardiovascular exam: PRESENT: +S1, +S2 GI/Abdominal exam: PRESENT: tenderness Neurological exam: PRESENT: alert Results Laboratory Results: 05/03/19 14:00 05/03/19 14:00 Impressions: Abdomen/Pelvis CT 05/03/19 00:00 IMPRESSION: Sigmoid acute diverticulitis. Assessment & Plan - Diagnosis (1) Diverticulitis of colon (without mention of hemorrhage) Is this a current diagnosis for this admission?: Yes Plan: Continue present line of management
[2019-05-05] MEDS: DILTIAZEM HCL 120 MG CAP.SR.24H PO SCH ×2 (01:21→09:58)
[2019-05-05] MEDS: ONDANSETRON HCL INJ/PF 4 MG/2 ML SDV IV PRN (03:40)
[2019-05-05] MEDS: METRONIDAZOLE 500 MG/NS RTU 500 MG/100 ML RTUPB IV SCH ×3 (06:47→22:15)
[2019-05-05] MEDS: NORMAL SALINE 1000 ML 1,000 ML IV PRN ×2 (06:47→19:04)
[2019-05-05] MEDS: PANTOPRAZOLE SODIUM 40 MG TABLET.DR PO SCH (09:58)
[2019-05-05] MEDS: LEVOFLOXACIN 750 MG/D5W RTU 750 MG/150 ML RTUPB IV SCH (10:02)
[2019-05-05] MEDS: NYSTATIN CREAM 15 GM TP SCH ×2 (10:17→17:33)
[2019-05-05] MEDS ORDERED: MORPHINE SULFATE 10 MG/ML INJ IV PRN (12:35)
--- NOTE | 2019-05-05 17:13 | PDOC PROGRESS REPORT ---
Subjective Progress Note for:: 05/05/19 Subjective:: Patient was admitted for observation, she continues to complain of urinary symptoms including lower abdominal pain, dysuria, the urine culture grew Enterococcus faecalis, though the colony count is less than 100,000 but she is symptomatic, the colony count suggest colonization,. She is admitted originally for acute sigmoid diverticulitis, this is recurrent for this patient I suggested to her she probably need to have colectomy, she was referred to the surgeon mateusz leo to evaluate for elective colectomy. The campaign manager want her discharge because she is admitted for observation but in light of the requirement for intravenous opioid to control pain and the fact that she continues to complain of lower abdominal pain and urinary symptoms in the co ntext of acute sigmoid diverticulitis and UTI, it is reasonable to change her status to inpatient Reason For Visit: ABDOMINAL PAIN Physical Exam Vital Signs: Temp Pulse Resp BP Pulse Ox 97.8 F 80 20 116/62 97 05/05/19 09:34 05/05/19 09:34 05/05/19 09:34 05/05/19 09:34 05/05/19 09:34 Intake & Output 05/04/19 05/05/19 05/06/19 06:59 06:59 06:59 Intake Total 1220 2230 750 Output Total 500 Balance 1220 1730 750 Weight 62.8 kg General appearance: PRESENT: no acute distress Eye exam: PRESENT: PERRLA Respiratory exam: PRESENT: clear to auscultation franky Cardiovascular exam: PRESENT: +S1, +S2 GI/Abdominal exam: PRESENT: soft Neurological exam: PRESENT: alert Results Laboratory Results: 05/03/19 14:00 05/03/19 14:00 05/03/19 17:35 Clean Catch Midstream Urine Culture - Final Enterococcus Faecalis(Group D) Impressions: Abdomen/Pelvis CT 05/03/19 00:00 IMPRESSION: Sigmoid acute diverticulitis. Assessment & Plan - Diagnosis (1) Diverticulitis of colon (without mention of hemorrhage) Is this a current diagnosis for this admission?: Yes Plan: Continue present line of management (2) Urinary tract infection Qualifiers: Urinary tract infection type: acute cystitis Hematuria presence: without hematuria Qualified Code(s): N30.00 - Acute cystitis without hematuria Is this a current diagnosis for this admission?: Yes
[2019-05-05] MEDS ORDERED: MAG HYDROX/AL HYDROX/SIMETH SUSP 30 ML UDCUP PO PRN ×2 (17:43→18:24)
[2019-05-05 18:43] LABS: ABSOLUTE BASOPHILS # (AUTO) 0.1 10^3/uL (0.0-0.2); ABSOLUTE EOSINOPHILS # (AUTO) 0.2 10^3/uL (0.0-0.6); ABSOLUTE LYMPHOCYTES (AUTO) 1.1 10^3/uL (0.5-4.7); ABSOLUTE MONOCYTES (AUTO) 0.8 10^3/uL (0.1-1.4); ABSOLUTE NEUT (AUTO) 5.5 10^3/uL (1.7-8.2); BASOPHILS % (AUTO) 0.9 % (0-2); HEMATOCRIT 39.5 % (36.0-47.0); HEMOGLOBIN 13.6 g/dL (12.0-15.5); LYMPHOCYTES % (AUTO) 14.2 % (13-45); MEAN CORPUSCULAR HEMOGLOBIN 33.6 pg (27.0-33.4); MEAN CORPUSCULAR HGB CONC 34.4 g/dL (32.0-36.0); MEAN CORPUSCULAR VOLUME 98 fl (80-97); MONOCYTES % (AUTO) 10.5 % (3-13); PLATELET COUNT 415 10^3/uL (150-450); RED BLOOD COUNT 4.04 10^6/uL (3.72-5.28); RED CELL DISTRIBUTION WIDTH 13.7 % (11.5-14.0); SEGMENTED NEUTROPHILS % (AUTO) 72.4 % (42-78); TOTAL CELLS COUNTED % (AUTO) 100 %; WHITE BLOOD COUNT 7.6 10^3/uL (4.0-10.5)
[2019-05-05] MEDS ORDERED: ENOXAPARIN SODIUM INJ 30 MG/0.3 ML DISP.SYRIN SUBCUT SCH (22:00)
[2019-05-06 03:37] VITALS: BP 124/67
[2019-05-06] MEDS: METRONIDAZOLE 500 MG/NS RTU 500 MG/100 ML RTUPB IV SCH (06:37)
[2019-05-06] MEDS ORDERED: CYANOCOBALAMIN (VITAMIN B-12) INJ 1000 MCG/1 ML VIAL IM ONE (06:45)
[2019-05-06] MEDS ORDERED: CYANOCOBALAMIN (VITAMIN B-12) INJ 1000 MCG/1 ML VIAL ONE (07:04)
[2019-05-06] MEDS ORDERED: ERGOCALCIFEROL (VITAMIN D2) 50000 UNIT (1.25 MG) CAPSULE PO SCH (10:00)
--- NOTE | 2019-05-06 10:25 | PDOC DISCHARGE SUMMARY ---
General - Admit/Disc Date/PCP Admission Date/Primary Care Provider: 05/03/19 15:08 ARACELI CORTEZ MD Discharge Date: 05/06/19 - Discharge Diagnosis (1) Diverticulitis of colon (without mention of hemorrhage) Is this a current diagnosis for this admission?: Yes (2) Urinary tract infection Is this a current diagnosis for this admission?: Yes - Additional Information Resuscitation Status: Full Code Discharge Diet: As Tolerated Discharge Activity: Activity As Tolerated Home Medications: Albuterol Sulfate [Proair HFA Inhalation Aerosol 8.5 gm MDI] 2 puff IH Q6HP PRN 12/26/18 Cyanocobalamin (Vitamin B-12) [Vitamin B-12 Inj 1000 Mcg/1 ml Vial] 1 ml IM TH@1000 12/26/18 Dexlansoprazole [Dexilant 60 mg Capsule] 60 mg PO DAILY 12/26/18 Ergocalciferol (Vitamin D2) [Drisdol 50,000 unit (1.25MG) Capsule] 50,000 unit PO JORGE@1000 12/26/18 Ibandronate Sodium [Boniva] 150 mg PO .MONTHLY 12/26/18 Iron Aspgly,Ps/C/Succinic Acid [Ferrex 150 Plus Capsule] 1 cap PO QID 12/26/18 Triamcinolone Acetonide [Aristocort 0.5% Cream 15 gm] 1 applic TOP BIDP PRN 12/26/18 Meclizine HCl [Antivert 25 mg Tablet] 25 mg PO TIDP PRN 02/09/19 Nystatin [Mycostatin Cream] 1 applic TP BID 02/09/19 Cyclobenzaprine HCl [Flexeril 10 mg Tablet] 10 mg PO TID 05/03/19 Diltiazem HCl [Cardizem Cd 120 mg Capsule] 1 cap.sr PO DAILY 05/03/19 Hydroxyzine Pamoate [Vistaril 25 mg Capsule] 25 mg PO Q8HP PRN 05/03/19 History of Present Illness History of Present Illness: MICHAEL CAMEJO is a 68 year old female,She came to the office for evaluation of abdominal pain, she was examined there was tenderness of the abdomen on palpa tion, it was more significant in the lower abdomen. She has a history of recurrent acute diverticulitis with multiple hospitalization for the management of this condition. Patient was very dramatic with her symptoms in the office, she stated that she was vomiting and that she was unable to to tolerate p.o. medication I attempted to treat patient outpatient with antibiotic knowing her history of recurrent diverticulitis but she insisted that the plan would not be effective because she was vomiting. She was admitted directly from the office into the hospital for the management of her symptoms, a CAT scan of the pelvis and abdomen was obtained with IV contrast demonstrated acute sigmoid diverticulitis Hospital Course Hospital Course: Patient was admitted for the management of acute sigmoid diverticulitis, she was treated with IV antibiotic, Levaquin and Flagyl. She has a history of recurrent sigmoid diverticulitis, she was advised previously to have elective colectomy done, she was referred to the surgeon outpatient for the procedure. She was brought in for observation she also had UTI due to Enterococcus faecalis, the colonic count was not significant enough to be considered infection is probably colonization from E faecalis. But the organism is sensitive to Levaquin. Patient left the floor/hospital today before management was complete, she was discharged from the hospital she followed in the office. Physical Exam Vital Signs: Temp Pulse Resp BP Pulse Ox 98.1 F 100 18 124/67 100 05/06/19 06:00 05/06/19 06:00 05/06/19 06:00 05/06/19 06:00 05/06/19 06:00 Intake & Output 05/05/19 05/06/19 05/07/19 06:59 06:59 06:59 Intake Total 2230 2510 1000 Output Total 500 1700 Balance 6084 728 8205 General appearance: PRESENT: no acute distress, well-developed, well-nourished Head exam: PRESENT: atraumatic, normocephalic Eye exam: PRESENT: conjunctiva pink, EOMI, PERRLA Ear exam: PRESENT: normal external ear exam Mouth exam: PRESENT: moist, tongue midline Neck exam: PRESENT: full ROM Respiratory exam: PRESENT: clear to auscultation franky Cardiovascular exam: PRESENT: RRR, +S1, +S2 Pulses: PRESENT: normal dorsalis pedis pul, +2 pedal pulses bilateral Vascular exam: PRESENT: normal capillary refill GI/Abdominal exam: PRESENT: normal bowel sounds, soft Rectal exam: PRESENT: deferred Neurological exam: PRESENT: alert, awake, oriented to person, oriented to place, oriented to time, oriented to situation, CN II-XII grossly intact Psychiatric exam: PRESENT: appropriate affect, normal mood Skin exam: PRESENT: dry, intact, warm Results Laboratory Results: 05/05/19 18:15 05/03/19 14:00 05/05/19 18:15 WBC 7.6 RBC 4.04 Hgb 13.6 Hct 39.5 MCV 98 H MCH 33.6 H MCHC 34.4 RDW 13.7 Plt Count 415 Seg Neutrophils % 72.4 05/03/19 17:35 Clean Catch Midstream Urine Culture - Final Enterococcus Faecalis(Group D) Impressions: Abdomen/Pelvis CT 05/03/19 00:00 IMPRESSION: Sigmoid acute diverticulitis. Qualifiers - * PATIENT BEING DISCHARGED WITH ANY OF THE FOLLOWING DIAGNOSIS: No VTE patient discharged on overlapping Therapy?: No Reason(s) for not prescribing Overlap Therapy:: Not indicated Stroke Pt being discharged on Anti-thrombolytic therapy?: No Reason(s) for not prescribing Anti-thrombolytic therapy:: Not indicated Stroke Pt being discharged on Anti-coagulation therapy?: No Reason(s) for not prescribing Anti-coagulation therapy:: Not indicated Stroke Pt being discharged on Statins?: No Reason(s) for not prescribing Statins therapy:: Not indicated CT Pt being discharged on Aspirin therapy?: No Reason(s) for not prescribing Aspirin therapy:: Not indicated CT Pt being discharged on Statins?: No Reason(s) for not prescribing Statin therapy:: Not indicated CT Pt discharged ACEI/ARBS?: No Reason(s) for not prescribing ACEI/ARBS:: Not indicated Acute Heart Failure - Is this a Heart Failure Patient?: No Follow-up Appointment scheduled within 7 days?: Yes
== END 2019-05-06 07:55 | disposition home or self-care (01) ==
LOC: ER 13:02 → EH 15:08 → 4W 17:28 → 4N 05-04 18:53
PROVIDERS: ADMIT Internal Medicine; ATTEND Internal Medicine
DX: K57.32 Diverticulitis of large intestine without perforation or abscess without bleeding (principal); N30.00 Acute cystitis without hematuria; B95.2 Enterococcus as the cause of diseases classified elsewhere; K50.90 Crohn's disease, unspecified, without complications; K21.9 Gastro-esophageal reflux disease without esophagitis; Z79.899 Other long term (current) drug therapy; Z90.49 Acquired absence of other specified parts of digestive tract; Z87.891 Personal history of nicotine dependence; Z90.710 Acquired absence of both cervix and uterus
CPT/HCPCS: 36415 ×2; 87040; 87086; 85025 ×2; 87088; 80076; 80048; 81001; 87186; 74177; G0378 ×5; A9270; J3420 ×2; J3490 ×7; J2270; J1170 ×2; J2405 ×2; J1650; J7030 ×2; J1956 ×2

== ENCOUNTER 2019-05-31 18:56 | Emergency (ER) | payer MEDICARE, MEDICAID ==
--- NOTE | 2019-05-31 19:22 | ER Document Report ---
ED Medical Screen (RME) - General Stated Complaint: RIGHT ARM PAIN Time Seen by Provider: 05/31/19 19:17 Primary Care Provider: ARACELI CORTEZ MD [Primary Care Provider] - Follow up as needed Mode of Arrival: Ambulatory Information source: Patient Notes: Ms. Sherrell Branham presents to the emergency department with right forearm skin sore. She reports the skin just split. She has been seen by Dr. Cortez and Dr. Rios. She reports what they treated her with is not working. She reports pain with very little touch. Patient is asking for a shot of Toradol. I have greeted and performed a rapid initial assessment of this patient. A comprehensive ED assessment and evaluation of the patient, analysis of test results and completion of the medical decision making process will be conducted by additional ED providers. Dictation of this chart was performed using voice recognition software; therefore, there may be some unintended grammatical errors. TRAVEL OUTSIDE OF THE [place] IN LAST 30 DAYS: No COUNTRY TRAVELED TO/FROM: [place] - Related Data Allergies/Adverse Reactions: aspirin Allergy (Severe, Verified 05/03/19 13:04) Anaphylaxis Penicillins Allergy (Severe, Verified 05/03/19 13:04) Anaphylaxis hydrocodone [From Vicodin] Allergy (Intermediate, Verified 05/03/19 13:04) Anaphylaxis Sulfa (Sulfonamide Antibiotics) Allergy (Intermediate, Verified 05/03/19 13:04) iching, nausea codeine Allergy (Mild, Verified 05/03/19 13:04) Diarrhea meperidine HCl [From Demerol] Allergy (Mild, Verified 05/03/19 13:04) heart palpitations ciprofloxacin Adverse Reaction (Verified 05/03/19 13:04) NAUSEA, ITCHING Past Medical History - Social History Family history: Reviewed & Not Pertinent - Past Medical History Cardiac Medical History: Reports: Hx Hypertension Denies: Hx Congestive Heart Failure, Hx Heart Attack Pulmonary Medical History: Reports: Hx Asthma, Hx Bronchitis, Hx Pneumonia Denies: Hx COPD, Hx Tuberculosis Neurological Medical History: Denies: Hx Seizures, Hx Parkinson's Disease Renal/ Medical History: Denies: Hx End Stage Renal Disease, Hx Peritoneal Dialysis GI Medical History: Reports: Hx Crohn's Disease, Hx Diverticulitis, Hx Gastroesophageal Reflux Disease, Hx Hiatal Hernia, Hx Irritable Bowel. Denies: Hx Cirrhosis, Hx Hepatitis Musculoskeltal Medical History: Reports Hx Arthritis, Reports Hx Musculoskeletal Deformity, Reports Hx Musculoskeletal Trauma Psychiatric Medical History: Reports: Hx Anxiety, Hx Depression Denies: Hx Bipolar Disorder Infectious Medical History: Denies: Hx Hepatitis Past Surgical History: Reports: Hx Abdominal Surgery - small intestine removal, Hx Appendectomy, Hx Bowel Surgery - small intestine, Hx Breast Surgery - biopsy, Hx Hysterectomy, Hx Neurologic Surgery - brain tumor removed, Hx Tonsillectomy. Denies: Hx Mastectomy, Hx Pacemaker - Immunizations Immunizations up to date: Yes Hx Diphtheria, Pertussis, Tetanus Vaccination: Yes - 09/2010 Doctor's Discharge - Discharge Referrals: ARACELI CORTEZ MD [Primary Care Provider] - Follow up as needed
[2019-05-31] MEDS ORDERED: KETOROLAC TROMETHAMINE 60 MG/2 ML SDV IM ONE (22:07)
--- NOTE | 2019-05-31 22:12 | ER Document Report ---
HPI - HPI Time Seen by Provider: 05/31/19 19:17 Pain Level: 3 Context: Patient is a 68-year-old female that comes to the emergency department with chief complaint of arm and muscle pain around a skin tear that she has on her right forearm that she has had since last Tuesday. She states she saw Dr. Cortez and he gave her Silvadene for possible burn to the area, she states this did not help, she saw Dr. Lin reportedly and was placed on hydrocortisone after this had healed, she states this does not seem to be helping as well. She denies developing redness, worsening pain, fever/chills, or any other complaints. She states her tetanus is up-to-date within 5 years. - REPRODUCTIVE Reproductive: DENIES: : Past Medical History - General Information source: Patient - Social History Smoking Status: Never Smoker Chew tobacco use (# tins/day): No Frequency of alcohol use: None Drug Abuse: None Lives with: Family Family History: Reviewed & Not Pertinent, Arthritis, CAD, CVA, DM, Hyperlipidemia, Hypertension, Malignancy, Thyroid Disfunction Patient has suicidal ideation: No Patient has homicidal ideation: No - Past Medical History Cardiac Medical History: Reports: Hx Hypertension Denies: Hx Congestive Heart Failure, Hx Heart Attack Pulmonary Medical History: Reports: Hx Asthma, Hx Bronchitis, Hx Pneumonia Denies: Hx COPD, Hx Tuberculosis Neurological Medical History: Denies: Hx Seizures, Hx Parkinson's Disease Renal/ Medical History: Denies: Hx End Stage Renal Disease, Hx Peritoneal Dialysis GI Medical History: Reports: Hx Crohn's Disease, Hx Diverticulitis, Hx Gastroesophageal Reflux Disease, Hx Hiatal Hernia, Hx Irritable Bowel. Denies: Hx Cirrhosis, Hx Hepatitis Musculoskeletal Medical History: Reports Hx Arthritis, Reports Hx Musculoskeletal Deformity, Reports Hx Musculoskeletal Trauma Psychiatric Medical History: Reports: Hx Anxiety, Hx Depression Denies: Hx Bipolar Disorder Infectious Medical History: Denies: Hx Hepatitis Past Surgical History: Reports: Hx Abdominal Surgery - small intestine removal, Hx Appendectomy, Hx Bowel Surgery - small intestine, Hx Breast Surgery - biopsy, Hx Hysterectomy, Hx Neurologic Surgery - brain tumor removed, Hx Tonsillectomy. Denies: Hx Mastectomy, Hx Pacemaker - Immunizations Immunizations up to date: Yes Hx Diphtheria, Pertussis, Tetanus Vaccination: Yes - 09/2010 Hx Pneumococcal Vaccination: 08/24/10 Vertical Provider Document - CONSTITUTIONAL General Appearance: WD/WN, No Apparent Distress - INFECTION CONTROL TRAVEL OUTSIDE OF THE [place] IN LAST 30 DAYS: No COUNTRY TRAVELED TO/FROM: [place] - HEENT HEENT: Atraumatic, Normocephalic - NECK Neck: Normal Inspection - RESPIRATORY Respiratory: Breath Sounds Normal, No Respiratory Distress - CARDIOVASCULAR Cardiovascular: Regular Rate, Regular Rhythm - GI/ABDOMEN Gastrointestinal: Abdomen Soft, Abdomen Non-Tender - BACK Back: Normal Inspection - MUSCULOSKELETAL/EXTREMETIES Musculoskeletal/Extremeties: FANNY, FROM. negative: Tender - NEURO Level of Consciousness: Awake, Alert, Appropriate Motor/Sensory: No Motor Deficit, No Sensory Deficit - DERM Integumentary: Warm, Dry. negative: Abscess - There is a 2 cm healing area over the right mid forearm that appears to have good granulation tissue around it, appears to have been either a skin tear or a small burn, there is no abnormal heat, notable tenderness, bleeding, or other concerning findings. Arm is nontender. No induration or fluctuance. Normal wrist, hand exam. Normal distal neurovascular exam. Course - Re-evaluation Re-evalutation: Patient has what appears to be either a burn or healed skin tear, either way there is good granulation tissue, no abnormal heat, noted tenderness, or other signs of infection. No fever. No other complaints except patient wants to be given her B12 shots. She was instructed to follow-up with her primary care provider for this. Patient request something for pain for the muscle in her arm, she specifically requests Toradol. She was provided with this. Discussed return precautions. Patient states understanding. - Vital Signs Vital signs: Temp Pulse Resp BP Pulse Ox 98.9 F 83 18 150/74 H 100 05/31/19 19:11 05/31/19 19:11 05/31/19 19:11 05/31/19 19:11 05/31/19 19:11 Discharge - Discharge Clinical Impression: Right arm pain Condition: Stable Disposition: HOME, SELF-CARE Additional Instructions: The skin tear appears to be healing well. You can take Tylenol or ibuprofen as needed for arm/muscle soreness. Follow-up with your provider to be given your B12 shots. Return for any concerning symptoms including developing swelling, redness, discolored discharge, fever, or any other concerning symptoms. Referrals: ARACELI CORTEZ MD [Primary Care Provider] - Follow up as needed
[2019-05-31 22:34] VITALS: BP 149/63
== END 2019-05-31 22:34 | disposition home or self-care (01) ==
LOC: ER 18:56
DX: M79.601 Pain in right arm (principal); I10 Essential (primary) hypertension; J45.909 Unspecified asthma, uncomplicated
CPT/HCPCS: 99283; 96372; J1885

== ENCOUNTER 2019-07-31 13:24 | Emergency (ER) | payer MEDICARE, MEDICAID ==
[2019-07-31 14:40] VITALS: BP 189/75
--- NOTE | 2019-07-31 15:54 | ER Document Report ---
ED Medical Screen (RME) - General Chief Complaint: Back Pain Stated Complaint: BACK PAIN Time Seen by Provider: 07/31/19 15:51 Primary Care Provider: ARACELI CORTEZ MD [Primary Care Provider] - Follow up as needed Mode of Arrival: Ambulatory Information source: Patient Notes: 68-year-old female presents to ED for complaint of abdominal pain, urinary symptoms, pain in her back, blood on her stool that she had yesterday. She states her diverticulitis is acting up her low back hurts and is caving in and she needs antibiotics. This patient is a frequent visitor to the emergency room. We will get some blood urine and a stool and have her reexamined by another provider. I have greeted and performed a rapid initial assessment of this patient. A comprehensive ED assessment and evaluation of the patient, analysis of test results and completion of medical decision making process will be conducted by an additional ED providers. TRAVEL OUTSIDE OF THE [place] IN LAST 30 DAYS: No COUNTRY TRAVELED TO/FROM: [place] - Related Data Allergies/Adverse Reactions: aspirin Allergy (Severe, Verified 05/03/19 13:04) Anaphylaxis Penicillins Allergy (Severe, Verified 05/03/19 13:04) Anaphylaxis hydrocodone [From Vicodin] Allergy (Intermediate, Verified 05/03/19 13:04) Anaphylaxis Sulfa (Sulfonamide Antibiotics) Allergy (Intermediate, Verified 05/03/19 13:04) iching, nausea codeine Allergy (Mild, Verified 05/03/19 13:04) Diarrhea meperidine HCl [From Demerol] Allergy (Mild, Verified 05/03/19 13:04) heart palpitations ciprofloxacin Adverse Reaction (Verified 05/03/19 13:04) NAUSEA, ITCHING Past Medical History - Social History Chew tobacco use (# tins/day): No Frequency of alcohol use: None Drug Abuse: None Family history: Reviewed & Not Pertinent - Past Medical History Cardiac Medical History: Reports: Hx Hypertension Denies: Hx Congestive Heart Failure, Hx Heart Attack Pulmonary Medical History: Reports: Hx Asthma, Hx Bronchitis, Hx Pneumonia Denies: Hx COPD, Hx Tuberculosis Neurological Medical History: Denies: Hx Seizures, Hx Parkinson's Disease Renal/ Medical History: Denies: Hx End Stage Renal Disease, Hx Peritoneal Dialysis GI Medical History: Reports: Hx Crohn's Disease, Hx Diverticulitis, Hx Gastroesophageal Reflux Disease, Hx Hiatal Hernia, Hx Irritable Bowel. Denies: Hx Cirrhosis, Hx Hepatitis Musculoskeltal Medical History: Reports Hx Arthritis, Reports Hx Musculoskeletal Deformity, Reports Hx Musculoskeletal Trauma Psychiatric Medical History: Reports: Hx Anxiety, Hx Depression Denies: Hx Bipolar Disorder Infectious Medical History: Denies: Hx Hepatitis Past Surgical History: Reports: Hx Abdominal Surgery - small intestine removal, Hx Appendectomy, Hx Bowel Surgery - small intestine, Hx Breast Surgery - biopsy, Hx Hysterectomy, Hx Neurologic Surgery - brain tumor removed, Hx Tonsillectomy. Denies: Hx Mastectomy, Hx Pacemaker - Immunizations Immunizations up to date: Yes Hx Diphtheria, Pertussis, Tetanus Vaccination: Yes - 09/2010 Physical Exam - Vital signs Vitals: Temp Pulse Resp BP Pulse Ox 99.0 F 68 18 189/75 H 99 07/31/19 13:24 07/31/19 13:24 07/31/19 13:24 07/31/19 13:24 07/31/19 13:24 Course - Vital Signs Vital signs: Temp Pulse Resp BP Pulse Ox 99.0 F 91 18 151/70 H 99 07/31/19 13:31 07/31/19 13:31 07/31/19 13:31 07/31/19 13:31 07/31/19 13:31 Doctor's Discharge - Discharge Referrals: ARACELI CORTEZ MD [Primary Care Provider] - Follow up as needed
--- NOTE | 2019-07-31 16:49 | ER Document Report ---
ED General - General Chief Complaint: Back Pain Stated Complaint: BACK PAIN Time Seen by Provider: 07/31/19 15:51 Primary Care Provider: ARACELI CORTEZ MD [Primary Care Provider] - Follow up as needed Mode of Arrival: Ambulatory Notes: 68-year-old female well-known to the emergency department with chronic back pain and stated diverticulitis presents to the emergency department with multiple chief complaints. Patient states that she has pain in her back and says that she has "degenerative disc disease, can't you see my back caving in?". Also, she is complaining of a unilateral rash in the right sacral area at the top of her buttock. She is also complaining of abdominal pain and states "my diverticulitis is making my belly bloat, can't you see that?". Patient has been belligerent with staff stating "I have been waiting here for 4 hours" when in reality she has been here for approximately 2 hours. Denies fevers or chills, denies headache, denies vision changes, denies neck stiffness, denies ear pain or sore throat, denies cough, denies shortness of breath, denies chest pain, denies nausea or vomiting, denies diarrhea, denies blood in her stool, denies urinary symptoms, denies any abnormal vaginal discharge, denies any numbness or tingling in any of her extremities, denies acute confusion, denies slurred speech. No other complaints Patient is requesting that she receive Toradol 60 mg IM and a "shot of morphine" and is requesting that we inject her with her intramuscular vitamin B12 shots 1 in each arm. TRAVEL OUTSIDE OF THE [place] IN LAST 30 DAYS: No COUNTRY TRAVELED TO/FROM: [place] - Related Data Allergies/Adverse Reactions: aspirin Allergy (Severe, Verified 05/03/19 13:04) Anaphylaxis Penicillins Allergy (Severe, Verified 05/03/19 13:04) Anaphylaxis hydrocodone [From Vicodin] Allergy (Intermediate, Verified 05/03/19 13:04) Anaphylaxis Sulfa (Sulfonamide Antibiotics) Allergy (Intermediate, Verified 05/03/19 13:04) iching, nausea codeine Allergy (Mild, Verified 05/03/19 13:04) Diarrhea meperidine HCl [From Demerol] Allergy (Mild, Verified 05/03/19 13:04) heart palpitations ciprofloxacin Adverse Reaction (Verified 05/03/19 13:04) NAUSEA, ITCHING Past Medical History - General Information source: Patient - Social History Smoking Status: Unknown if Ever Smoked Chew tobacco use (# tins/day): No Frequency of alcohol use: None Drug Abuse: None Family History: Reviewed & Not Pertinent, Arthritis, CAD, CVA, DM, Hyperlipidemia, Hypertension, Malignancy, Thyroid Disfunction Patient has suicidal ideation: No Patient has homicidal ideation: No - Past Medical History Cardiac Medical History: Reports: Hx Hypertension Denies: Hx Congestive Heart Failure, Hx Heart Attack Pulmonary Medical History: Reports: Hx Asthma, Hx Bronchitis, Hx Pneumonia Denies: Hx COPD, Hx Tuberculosis Neurological Medical History: Denies: Hx Seizures, Hx Parkinson's Disease Renal/ Medical History: Denies: Hx End Stage Renal Disease, Hx Peritoneal Dialysis GI Medical History: Reports: Hx Crohn's Disease, Hx Diverticulitis, Hx Gastroesophageal Reflux Disease, Hx Hiatal Hernia, Hx Irritable Bowel. Denies: Hx Cirrhosis, Hx Hepatitis Musculoskeletal Medical History: Reports Hx Arthritis, Reports Hx Musculoskeletal Deformity, Reports Hx Musculoskeletal Trauma Psychiatric Medical History: Reports: Hx Anxiety, Hx Depression Denies: Hx Bipolar Disorder Infectious Medical History: Denies: Hx Hepatitis Past Surgical History: Reports: Hx Abdominal Surgery - small intestine removal, Hx Appendectomy, Hx Bowel Surgery - small intestine, Hx Breast Surgery - biopsy, Hx Hysterectomy, Hx Neurologic Surgery - brain tumor removed, Hx Tonsillectomy. Denies: Hx Mastectomy, Hx Pacemaker - Immunizations Immunizations up to date: Yes Hx Diphtheria, Pertussis, Tetanus Vaccination: Yes - 09/2010 Hx Pneumococcal Vaccination: 08/24/10 Review of Systems - Review of Systems Constitutional: See HPI EENT: See HPI Cardiovascular: See HPI Respiratory: See HPI Gastrointestinal: See HPI Genitourinary: See HPI Female Genitourinary: See HPI Musculoskeletal: See HPI Skin: See HPI Hematologic/Lymphatic: No symptoms reported Neurological/Psychological: See HPI -: Yes All other systems reviewed and negative Physical Exam - Vital signs Vitals: Temp Pulse Resp BP Pulse Ox 99.0 F 68 18 189/75 H 99 07/31/19 13:24 07/31/19 13:24 07/31/19 13:24 07/31/19 13:24 07/31/19 13:24 - Notes Notes: PHYSICAL EXAMINATION: Reviewed vital signs and charting by RN GENERAL: Alert, interacts well. No acute distress. HEAD: Normocephalic, atraumatic. EYES: Pupils equal and round. Extraocular movements intact. ENT: Oral mucosa moist, tongue midline. NECK: Full range of motion. Trachea midline. LUNGS: Clear to auscultation bilaterally, no wheezes, rales, or rhonchi. No respiratory distress. HEART: Regular rate and rhythm. No murmur ABDOMEN: soft, mild generalized tenderness to palpation. No distention. Bowel sounds present BACK: Mild kyphotic curvature of the lower thoracic superior lumbar spine, mild paraspinal tenderness to palpation bilateral EXTREMITIES: Moves all 4 extremities spontaneously. No edema, No cyanosis. PSYCH: Normal affect, normal mood. SKIN: Warm, dry, normal turgor. There appears to be a quarter size area at the gluteal cleft on the right side with an erythematous base that does appear to be mildly vesicular that I am concerned may be shingles Course - Re-evaluation Re-evalutation: 07/31/19 16:53 Patient states that she is having a diverticulitis flareup. Basic labs obtained. Patient stated she wanted us to inject her B12 injections and I declined told it was not appropriate and she should do it herself. Patient is requesting morphine but I told her is not appropriate for her condition. There is an area on the gluteal cleft with an erythematous base that I am concerned to shingles so I am going to prescribe her valacyclovir 1000 mg 3 times a day for 1 week and Zovirax ointment. Labs are pending and if all is within normal limits she will be stable for discharge. 07/31/19 19:39 Lab work all within normal limits. Patient is afebrile, no leukocytosis, abdominal exam is overall benign and abdomen is soft. No hematochezia so I have very low concern for suspicion for an acute diverticulitis. No epigastric pain so I do not suspect gastritis. I do suspect though that patient is having a shingles outbreak so I have prescribed her antivirals systemically and topical. I explained all of this to patient but she was dissatisfied as per usual visits. She was demanding Toradol and morphine but there is no indication for it at this time. She is stable for discharge. - Vital Signs Vital signs: Temp Pulse Resp BP Pulse Ox 99.0 F 91 18 151/70 H 99 07/31/19 13:31 07/31/19 13:31 07/31/19 13:31 07/31/19 13:31 07/31/19 13:31 - Laboratory Result Diagrams: 07/31/19 16:52 07/31/19 16:57 Laboratory results interpreted by me: 07/31/19 07/31/19 16:52 16:57 MCV 98 H MCH 33.8 H RDW 14.2 H Lymph % (Auto) 11.4 L Seg Neutrophils % 79.3 H BUN 21 H Discharge - Discharge Clinical Impression: Back pain Qualifiers: Back pain location: low back pain Chronicity: chronic Back pain laterality: unspecified Sciatica presence: without sciatica Qualified Code(s): M54.5 - Low back pain Abdominal pain Qualifiers: Abdominal location: generalized Qualified Code(s): R10.84 - Generalized abdominal pain Condition: Good Disposition: HOME, SELF-CARE Additional Instructions: You were seen in the emergency department this afternoon for back pain, abdominal pain, and a rash that I am concerned is vesicular that is consistent with possible shingles. I have given you prescriptions for an antiviral and a new topical cream that you can apply to the area. Your lab work was normal and overall very reassuring. It is important that you follow-up with your primary care doctor regarding today's emergent visit to the emergency department. Please return to the emergency department if you develop confusion, slurred speech, acute limb weakness, you pass out, paralysis of your arms or legs, intractable bloody vomiting or bloody diarrhea, severe intractable abdominal pain, or you have any other concerning symptoms. Prescriptions: Valacyclovir HCl [Valtrex] 1,000 mg PO TID #21 tablet Acyclovir [Zovirax 5% Ointment 15 gm] 15 applic TP TID #1 tube Referrals: ARACELI CORTEZ MD [Primary Care Provider] - Follow up as needed
[2019-07-31 16:57] LABS: APPEARANCE,URINE CLEAR; BILIRUBIN,URINE NEGATIVE (NEGATIVE); COLOR,URINE STRAW; GLUCOSE, URINE NEGATIVE (NEGATIVE); KETONES,URINE NEGATIVE (NEGATIVE); PROTEIN,URINE NEGATIVE (NEGATIVE); URINE SPECIFIC GRAVITY 1.004; UROBILINOGEN,URINE NEGATIVE mg/dL (<2.0)
[2019-07-31 17:12] LABS: ABSOLUTE EOSINOPHILS # (AUTO) 0.1 10^3/uL (0.0-0.6); ABSOLUTE MONOCYTES (AUTO) 0.8 10^3/uL (0.1-1.4); ABSOLUTE NEUT (AUTO) 7.3 10^3/uL (1.7-8.2); BASOPHILS % (AUTO) 0.3 % (0-2); EOSINOPHILS % (AUTO) 0.8 % (0-6); HEMATOCRIT 38.1 % (36.0-47.0); HEMOGLOBIN 13.1 g/dL (12.0-15.5); LYMPHOCYTES % (AUTO) 11.4 % (13-45); MEAN CORPUSCULAR HEMOGLOBIN 33.8 pg (27.0-33.4); MEAN CORPUSCULAR HGB CONC 34.4 g/dL (32.0-36.0); MEAN CORPUSCULAR VOLUME 98 fl (80-97); MONOCYTES % (AUTO) 8.2 % (3-13); PLATELET COUNT 358 10^3/uL (150-450); RED BLOOD COUNT 3.89 10^6/uL (3.72-5.28); RED CELL DISTRIBUTION WIDTH 14.2 % (11.5-14.0); SEGMENTED NEUTROPHILS % (AUTO) 79.3 % (42-78); TOTAL CELLS COUNTED % (AUTO) 100 %; WHITE BLOOD COUNT 9.2 10^3/uL (4.0-10.5)
[2019-07-31 17:33] LABS: ALBUMIN 3.5 g/dL (3.5-5.0); ALKALINE PHOSPHATASE 92 U/L (38-126); ANION GAP 9 (5-19); ASPARTATE AMINO TRANSFERASE 18 U/L (14-36); BILIRUBIN,DIRECT 0.1 mg/dL (0.0-0.4); BILIRUBIN,TOTAL 0.4 mg/dL (0.2-1.3); BLOOD UREA NITROGEN 21 mg/dL (7-20); CALCIUM 9.2 mg/dL (8.4-10.2); CARBON DIOXIDE 28 mmol/L (22-30); CHLORIDE 103 mmol/L (98-107); GLUCOSE 91 mg/dL (75-110); POTASSIUM 4.3 mmol/L (3.6-5.0); TOTAL PROTEIN 6.6 g/dL (6.3-8.2)
== END 2019-07-31 17:00 | disposition home or self-care (01) ==
LOC: ER 13:24
DX: M54.5 Low back pain (principal); R10.84 Generalized abdominal pain; M54.9 Dorsalgia, unspecified; G89.29 Other chronic pain; R21 Rash and other nonspecific skin eruption; I10 Essential (primary) hypertension; J45.909 Unspecified asthma, uncomplicated
CPT/HCPCS: 36415; 80053; 81001; 85025; 87086; 99284

== ENCOUNTER 2019-08-17 20:09 | Emergency (ER) | payer MEDICARE, MEDICAID ==
[2019-08-17] MEDS ORDERED: ACETAMINOPHEN 325 MG TABLET PO ONE (20:54)
[2019-08-17] MEDS ORDERED: KETOROLAC TROMETHAMINE 60 MG/2 ML SDV IM ONE (21:20)
--- NOTE | 2019-08-17 21:52 | ER Document Report ---
ED Extremity Problem, Upper - General Chief Complaint: Skin Tear(s) Stated Complaint: WOUND ON ARM Time Seen by Provider: 08/17/19 20:57 Primary Care Provider: ARACELI CORTEZ MD [Primary Care Provider] - Follow up as needed Mode of Arrival: Medic Information source: Patient TRAVEL OUTSIDE OF THE [place] IN LAST 30 DAYS: No COUNTRY TRAVELED TO/FROM: [employer] Patient complains to provider of: Altered sensation Onset: Just prior to arrival Quality of pain: Burning Severity of pain: Mild Pain Level: 2 Context: Other - Accidental skin tear 2 weeks ago - Related Data Allergies/Adverse Reactions: aspirin Allergy (Severe, Verified 08/17/19 20:40) Anaphylaxis Penicillins Allergy (Severe, Verified 08/17/19 20:40) Anaphylaxis hydrocodone [From Vicodin] Allergy (Intermediate, Verified 08/17/19 20:40) Anaphylaxis Sulfa (Sulfonamide Antibiotics) Allergy (Intermediate, Verified 08/17/19 20:40) iching, nausea codeine Allergy (Mild, Verified 08/17/19 20:40) Diarrhea meperidine HCl [From Demerol] Allergy (Mild, Verified 08/17/19 20:40) heart palpitations ciprofloxacin Adverse Reaction (Verified 08/17/19 20:40) NAUSEA, ITCHING Home Medications: ALEVE, CARDIZEM, MECLIZINE, B12, IRON Past Medical History - Social History Smoking Status: Unknown if Ever Smoked Lives with: Alone Family History: Reviewed & Not Pertinent, Arthritis, CAD, CVA, DM, Hyperlipidemia, Hypertension, Malignancy, Thyroid Disfunction Patient has suicidal ideation: No Patient has homicidal ideation: No - Past Medical History Cardiac Medical History: Reports: Hx Hypertension Denies: Hx Congestive Heart Failure, Hx Heart Attack Pulmonary Medical History: Reports: Hx Asthma, Hx Bronchitis, Hx Pneumonia Denies: Hx COPD, Hx Tuberculosis Neurological Medical History: Denies: Hx Seizures, Hx Parkinson's Disease Renal/ Medical History: Denies: Hx End Stage Renal Disease, Hx Peritoneal Dialysis GI Medical History: Reports: Hx Crohn's Disease, Hx Diverticulitis, Hx Gastroesophageal Reflux Disease, Hx Hiatal Hernia, Hx Irritable Bowel. Denies: Hx Cirrhosis, Hx Hepatitis Musculoskeletal Medical History: Reports Hx Arthritis, Reports Hx Musculoskeletal Deformity, Reports Hx Musculoskeletal Trauma Skin Medical History: Reports Other - Skin abrasion skin tear left forearm Psychiatric Medical History: Reports: Hx Anxiety, Hx Depression Denies: Hx Bipolar Disorder Infectious Medical History: Denies: Hx Hepatitis Past Surgical History: Reports: Hx Abdominal Surgery - small intestine removal, Hx Appendectomy, Hx Bowel Surgery - small intestine, Hx Breast Surgery - biopsy, Hx Hysterectomy, Hx Neurologic Surgery - brain tumor removed, Hx Tonsillectomy. Denies: Hx Mastectomy, Hx Pacemaker - Immunizations Immunizations up to date: Yes Hx Diphtheria, Pertussis, Tetanus Vaccination: Yes - 09/2010 Hx Pneumococcal Vaccination: 08/24/10 Physical Exam - Vital signs Vitals: Temp Pulse BP Pulse Ox 98.8 F 104 H 146/86 H 18 L 08/17/19 20:19 08/17/19 20:19 08/17/19 20:08/17/19 20:19 Interpretation: Normal - General General appearance: Appears well, Alert - HEENT Head: Normocephalic, Atraumatic Eyes: Normal Pupils: PERRL - Respiratory Respiratory status: No respiratory distress Chest status: Nontender Breath sounds: Normal Chest palpation: Normal - Cardiovascular Rhythm: Regular Heart sounds: Normal auscultation Murmur: No - Abdominal Inspection: Normal Distension: No distension Bowel sounds: Normal Tenderness: Nontender Organomegaly: No organomegaly - Back Back: Normal, Nontender - Extremities General upper extremity: Normal inspection, Nontender, Normal color, Normal ROM, Normal temperature General lower extremity: Normal inspection, Nontender, Normal color, Normal ROM, Normal temperature, Normal weight bearing. No: Guille's sign - Neurological Neuro grossly intact: Yes Cognition: Normal Orientation: AAOx4 Dell Coma Scale Eye Opening: Spontaneous Ji Coma Scale Verbal: Oriented Ji Coma Scale Motor: Obeys Commands Dell Coma Scale Total: 15 Speech: Normal Motor strength normal: LUE, RUE, LLE, RLE Sensory: Normal - Psychological Associated symptoms: Normal affect, Normal mood - Skin Skin Temperature: Warm Skin Moisture: Dry Skin Color: Normal Skin irregularity: other - Skin tear left forearm dorsal region 5 x 6 cm superficial with epidermis denuded. [place] moist mucosal tissue. No evidence of any deep tissue wound injury or infection. No active oozing of any inflammatory tissue at this time. No active bleeding. Course - Vital Signs Vital signs: Temp Pulse Resp BP Pulse Ox 98.8 F 104 H 146/86 H 18 L 08/17/19 20:19 08/17/19 20:19 08/17/19 20:19 08/17/19 20:19 Procedures - Laceration/Wound Repair Left Dorsal Arm Wound length (cm): 5 Wound's Depth, Shape: Superficial Wound Repaired With: Dermabond - Superficial skin tear with denuded epidermis submucosal tissue clean not showing any signs of infection moist but not draining any fluid. No bleeding. Area cleaned off with sterile water patted dry then applied Dermabond to cover wound site. Patient tolerated procedure well Layer Closure?: No Post-procedure wound care: Other - Sterile nonadherent Telfa pad applied and bandaged down. Complications: No Discharge - Discharge Clinical Impression: Skin tear of forearm without complication Disposition: HOME, SELF-CARE Additional Instructions: Patient instructed to not apply any ointment to the wound site now that it has been covered with Dermabond. Patient is asked to keep the wound site clean and dry. I explained that the Dermabond covering should last 7 to 10 days. Referrals: ARACELI CORTEZ MD [Primary Care Provider] - Follow up as needed
[2019-08-17 22:37] VITALS: BP 165/92
== END 2019-08-17 22:39 | disposition home or self-care (01) ==
LOC: ER 20:09
DX: S51.812A Laceration without foreign body of left forearm, initial encounter (principal); X58.XXXA Exposure to other specified factors, initial encounter; I10 Essential (primary) hypertension; J45.909 Unspecified asthma, uncomplicated; Z87.892 Personal history of anaphylaxis; Z88.8 Allergy status to other drugs, medicaments and biological substances; Z88.0 Allergy status to penicillin; Z88.6 Allergy status to analgesic agent; Z88.5 Allergy status to narcotic agent; Z88.2 Allergy status to sulfonamides
CPT/HCPCS: 99283; 96372; 12002; A9270; J1885

== ENCOUNTER 2019-09-17 11:16 | Observation (INO) | payer MEDICARE, MEDICAID ==
[2019-09-17] MEDS ORDERED: NORMAL SALINE 1000 ML 1,000 ML IV PRN (11:47)
[2019-09-17] MEDS ORDERED: HYDROMORPHONE HCL INJ/PF 2 MG/ML AMPULE IV PRN (12:30)
[2019-09-17 13:23] LABS: HEMATOCRIT 37.6 % (36.0-47.0); HEMOGLOBIN 12.9 g/dL (12.0-15.5); MEAN CORPUSCULAR HEMOGLOBIN 33.3 pg (27.0-33.4); MEAN CORPUSCULAR HGB CONC 34.4 g/dL (32.0-36.0); MEAN CORPUSCULAR VOLUME 97 fl (80-97); PLATELET COUNT 367 10^3/uL (150-450); RED BLOOD COUNT 3.88 10^6/uL (3.72-5.28); RED CELL DISTRIBUTION WIDTH 15.2 % (11.5-14.0); WHITE BLOOD COUNT 15.3 10^3/uL (4.0-10.5)
[2019-09-17 13:49] LABS: ALBUMIN 3.7 g/dL (3.5-5.0); ALKALINE PHOSPHATASE 123 U/L (38-126); ANION GAP 8 (5-19); ASPARTATE AMINO TRANSFERASE 22 U/L (14-36); BILIRUBIN,TOTAL 0.5 mg/dL (0.2-1.3); BLOOD UREA NITROGEN 22 mg/dL (7-20); CALCIUM 9.3 mg/dL (8.4-10.2); CARBON DIOXIDE 29 mmol/L (22-30); CHLORIDE 99 mmol/L (98-107); GLUCOSE 81 mg/dL (75-110); POTASSIUM 3.7 mmol/L (3.6-5.0); TOTAL PROTEIN 6.7 g/dL (6.3-8.2)
[2019-09-17 14:08] LABS: APPEARANCE,URINE CLEAR; BILIRUBIN,URINE NEGATIVE (NEGATIVE); COLOR,URINE STRAW; GLUCOSE, URINE NEGATIVE (NEGATIVE); KETONES,URINE NEGATIVE (NEGATIVE); LEUKOCYTE ESTERASE,URINE NEGATIVE (NEGATIVE); NITRITE,URINE NEGATIVE (NEGATIVE); PROTEIN,URINE NEGATIVE (NEGATIVE); URINE SPECIFIC GRAVITY 1.006; UROBILINOGEN,URINE NEGATIVE mg/dL (<2.0)
--- NOTE | 2019-09-17 15:37 | RADIOLOGY REPORT (SQ) ---
EXAM DESCRIPTION: CT ABD/PELVIS ORAL ONLY COMPLETED DATE/TIME: 09/17/2019 3:24 pm REASON FOR STUDY: abd pain COMPARISON: 05/03/2019 TECHNIQUE: CT scan of the abdomen and pelvis performed without intravenous or oral contrast. Images reviewed with lung, soft tissue, and bone windows. Reconstructed coronal and sagittal MPR images revi ewed. All images stored on PACS. All CT scanners at this facility use dose modulation, iterative reconstruction, and/or weight based d osing when appropriate to reduce radiation dose to as low as reasonably achievable (ALARA). [facility]: Dose Right [facility]: CareDose [facility]: Dose Right [facility]: Teradose 4D [facility]: Smart [employer] system RADIATION DOSE: CT Rad equipment meets quality standard of care and radiation dose reduction techniq ues were employed. CTDIvol: 7.7 mGy. DLP: 396 mGy-cm.mGy. LIMITATIONS: None. FINDINGS: LOWER CHEST: Mild pleural thickening in the right base with scattered chronic appearing bran ng changes. NON-CONTRASTED LIVER, SPLEEN, ADRENALS: Evaluation limited by lack of IV contrast. No identified sign ificant masses. PANCREAS: No masses. No peripancreatic inflammatory changes. GALLBLADDER: No identified stones by CT criteria. No inflammatory changes to suggest cholecystitis. RIGHT KIDNEY AND URETER: No suspicious masses. Assessment limited by lack of IV contrast. No signif icant calcifications. No hydronephrosis or hydroureter. There is an extrarenal pelvis on the right . LEFT KIDNEY AND URETER: No suspicious masses. Assessment limited by lack of IV contrast. No signifi cant calcifications. No hydronephrosis or hydroureter. There is an extrarenal pelvis on the left a s well. AORTA AND RETROPERITONEUM: No aneurysm. No retroperitoneal masses or adenopathy. BOWEL AND PERITONEAL CAVITY: Diverticular change is again noted throughout the colon most marked in t he descending colon and sigmoid colon. No acute diverticulitis. APPENDIX: Surgically absent. PELVIS, BLADDER, AND ABDOMINAL WALL:No abnormal masses. No free fluid. Bladder normal. BONES: No significant findings. OTHER: No other significant finding. IMPRESSION: Diverticular change involving the colon. No acute diverticulitis. COMMENT: Quality ID # [id number]: Final reports with documentation of one or more dose reduction techniques (e.g., Automated exposure control, adjustment of the mA and/or kV according to patient size, use of iterative reconstruction technique) TECHNICAL DOCUMENTATION: JOB ID: [id number] [employer]- All Rights Reserved Reading location - IP/workstation name: [email or web address]
[2019-09-17] MEDS ORDERED: MORPHINE SULFATE 10 MG/ML INJ IV PRN (16:43)
[2019-09-17] MEDS: LEVOFLOXACIN 750 MG/D5W RTU 750 MG/150 ML RTUPB IV SCH (19:16)
--- NOTE | 2019-09-17 19:39 | RADIOLOGY REPORT (SQ) ---
EXAM DESCRIPTION: ANKLE BILATERAL 3 VIEWS MIN COMPLETED DATE/TIME: 09/17/2019 5:21 pm REASON FOR STUDY: ankle pain COMPARISON: None. NUMBER OF VIEWS: Three views. TECHNIQUE: AP, lateral, and oblique radiographic images acquired of the right and left ankle. LIMITATIONS: None. FINDINGS: MINERALIZATION: Normal. BONES: No acute fracture or dislocation. No worrisome bone lesions. JOINTS: No effusions. SOFT TISSUES: No soft tissue swelling. No foreign body. OTHER: No other significant finding. IMPRESSION: NO EXPLANATION FOR PAIN IN THE RIGHT AND LEFT ANKLES. TECHNICAL DOCUMENTATION: JOB ID: [id number] [employer]- All Rights Reserved Reading location - IP/workstation name: [email or web address]
--- NOTE | 2019-09-17 19:54 | PDOC H&P ---
History of Present Illness Admission Date/PCP: 09/17/19 11:16 ARACELI CORTEZ MD History of Present Illness: MICHAEL CAMEJO is a 68 year old female, She came to the office for evaluation of abdominal pain, diffuse, she has a history of recurrent diverticulitis, she was admitted directly for evaluation, the blood work demonstrated leukocytosis with white cell count of 15,000 Suggesting systemic inflammation, the CAT scan of abdomen and pelvis with oral contrast was obtained, it demonstrated diverticular change throughout the colon most marked in the descending and sigmoid colon the re was no acute diverticulitis, She also complained of multiple symptoms including lower symmetry swelling, palpitation. Past Medical History Cardiac Medical History: Reports: Hypertension Pulmonary Medical History: Reports: Asthma, Bronchitis, Pneumonia GI Medical History: Reports: Diverticulitis, Gastroesophageal Reflux Disease, Hiatal Hernia Musculoskeltal Medical History: Reports: Arthritis Psychiatric Medical History: Reports: Depression Denies: Bipolar Disorder Hematology: Reports: Anemia Past Surgical History Past Surgical History: Reports: Appendectomy, Hysterectomy, Tonsillectomy Social History Information Source: Patient Lives with: Alone Smoking Status: Never Smoker Frequency of Alcohol Use: None Hx Recreational Drug Use: No Drugs: None Hx Prescription Drug Abuse: No Family History Family History: Reviewed & Not Pertinent, Arthritis, CAD, CVA, DM, Hyperlipidemia, Hypertension, Malignancy, Thyroid Disfunction Parental Family History Reviewed: Yes Children Family History Reviewed: Yes Sibling(s) Family History Reviewed.: Yes Medication/Allergy Home Medications: Albuterol Sulfate [Proair HFA Inhalation Aerosol 8.5 gm MDI] 2 puff IH Q6HP PRN 12/26/18 Cyanocobalamin (Vitamin B-12) [Vitamin B-12 Inj 1000 Mcg/1 ml Vial] 1 ml IM TH@1000 12/26/18 Dexlansoprazole [Dexilant 60 mg Capsule] 60 mg PO DAILY 12/26/18 Ergocalciferol (Vitamin D2) [Drisdol 50,000 unit (1.25MG) Capsule] 50,000 unit PO JORGE@1000 12/26/18 Ibandronate Sodium [Boniva] 150 mg PO .MONTHLY 12/26/18 Triamcinolone Acetonide [Aristocort 0.5% Cream 15 gm] 1 applic TOP BID 12/26/18 Nystatin [Mycostatin Cream] 1 applic TP BID 02/09/19 Diltiazem HCl [Cardizem Cd 120 mg Capsule] 120 mg PO DAILY 05/03/19 Bimatoprost [Lumigan 0.01% Oph Soln 2.5 ml/Bottle] 1 drop OU QHS 09/17/19 Iron Ps Complex/B12/Folic Acid [Ferrex 150 Forte Capsule] 1 each PO QID 09/17/19 Allergies/Adverse Reactions: aspirin Allergy (Severe, Verified 08/17/19 20:40) Anaphylaxis Penicillins Allergy (Severe, Verified 08/17/19 20:40) Anaphylaxis hydrocodone [From Vicodin] Allergy (Intermediate, Verified 08/17/19 20:40) Anaphylaxis Sulfa (Sulfonamide Antibiotics) Allergy (Intermediate, Verified 08/17/19 20:40) iching, nausea codeine Allergy (Mild, Verified 08/17/19 20:40) Diarrhea meperidine HCl [From Demerol] Allergy (Mild, Verified 08/17/19 20:40) heart palpitations ciprofloxacin Adverse Reaction (Verified 08/17/19 20:40) NAUSEA, ITCHING Review of Systems Constitutional: ABSENT: chills, fever(s), headache(s), weight gain, weight loss Eyes: ABSENT: visual disturbances Ears: ABSENT: hearing changes Cardiovascular: PRESENT: palpitations Respiratory: ABSENT: cough, hemoptysis Gastrointestinal: PRESENT: abdominal pain Genitourinary: ABSENT: dysuria, hematuria Musculoskeletal: ABSENT: joint swelling Integumentary: ABSENT: rash, wounds Neurological: ABSENT: abnormal gait, abnormal speech, confusion, dizziness, focal weakness, syncope Psychiatric: ABSENT: anxiety, depression, homidical ideation, suicidal ideation Endocrine: ABSENT: cold intolerance, heat intolerance, menstrual abnormalities, polydipsia, polyuria Hematologic/Lymphatic: ABSENT: easy bleeding, easy bruising, lymphadenopathy Physical Exam Vital Signs: Temp Pulse Resp BP Pulse Ox 98.6 F 82 17 160/80 H 100 09/17/19 16:20 09/17/19 16:20 09/17/19 16:20 09/17/19 16:20 09/17/19 16:20 Intake & Output 09/16/19 09/17/19 09/18/19 06:59 06:59 06:59 Weight 72.4 kg General appearance: PRESENT: no acute distress Head exam: PRESENT: atraumatic, normocephalic Eye exam: PRESENT: PERRLA Neck exam: PRESENT: full ROM Respiratory exam: PRESENT: clear to auscultation franky Cardiovascular exam: PRESENT: RRR, +S1, +S2 Vascular exam: PRESENT: normal capillary refill GI/Abdominal exam: PRESENT: tenderness Rectal exam: PRESENT: deferred Neurological exam: PRESENT: alert, awake, oriented to person, oriented to place, oriented to time, oriented to situation, CN II-XII grossly intact Psychiatric exam: PRESENT: appropriate affect, normal mood Skin exam: PRESENT: dry, intact, warm Results Laboratory Results: 09/17/19 13:00 09/17/19 13:00 09/17/19 09/17/19 09/17/19 13:00 13:00 13:40 WBC 15.3 H RBC 3.88 Hgb 12.9 Hct 37.6 MCV 97 MCH 33.3 MCHC 34.4 RDW 15.2 H Plt Count 367 Sodium 136.2 L Potassium 3.7 Chloride 99 Carbon Dioxide 29 Anion Gap 8 BUN 22 H Creatinine 0.58 Est GFR ( Amer) > 60 Glucose 81 Calcium 9.3 Total Bilirubin 0.5 AST 22 Alkaline Phosphatase 123 Total Protein 6.7 Albumin 3.7 Urine Color STRAW Urine Appearance CLEAR Urine pH 8.0 Ur Specific [place] 1.006 Urine Protein NEGATIVE Urine Glucose (UA) NEGATIVE Urine Ketones NEGATIVE Urine Blood NEGATIVE Urine Nitrite NEGATIVE Ur Leukocyte Esterase NEGATIVE Urine WBC (Auto) 0 Urine RBC (Auto) 0 Impressions: Ankle X-Ray 09/17/19 00:00 IMPRESSION: NO EXPLANATION FOR PAIN IN THE RIGHT AND LEFT ANKLES. Abdomen/Pelvis CT 09/17/19 11:47 IMPRESSION: Diverticular change involving the colon. No acute diverticulitis. Assessment & Plan - Diagnosis (1) Leucocytosis Qualifiers: Leukocytosis type: unspecified Qualified Code(s): D72.829 - Elevated white blood cell count, unspecified Is this a current diagnosis for this admission?: Yes Plan: The differential diagnosis is quite long she has biomarker of systemic inflammation, leukocytosis, she has abdominal pain, nonspecific a noncontrasted CAT scan of the abdomen and pelvis did not demonstrate any acute pathology, because of patient long history of recurrent diverticulitis she will be treated with IV antibiotic Levaquin, will continue to follow patient very closely (2) Abdominal pain Qualifiers: Abdominal location: generalized Qualified Code(s): R10.84 - Generalized abdominal pain Is this a current diagnosis for this admission?: Yes
[2019-09-18] MEDS ORDERED: ALBUTEROL SULFATE HFA (90 MCG/PUFF) 200 PUFF/8.5 GM MDI IH PRN (17:17)
[2019-09-18] MEDS: LEVOFLOXACIN 750 MG/D5W RTU 750 MG/150 ML RTUPB IV SCH (17:31)
[2019-09-18] MEDS ORDERED: IRON PS COMPLEX PO SCH (18:00)
[2019-09-18] MEDS ORDERED: [UNRECOGNIZED DRUG - OTHER] PO SCH (18:00)
[2019-09-18] MEDS ORDERED: B12 PO SCH (18:00)
[2019-09-18] MEDS ORDERED: FOLIC ACID PO SCH (18:00)
[2019-09-18 18:39] LABS: ABSOLUTE BASOPHILS # (AUTO) 0.1 10^3/uL (0.0-0.2); ABSOLUTE EOSINOPHILS # (AUTO) 0.1 10^3/uL (0.0-0.6); ABSOLUTE LYMPHOCYTES (AUTO) 1.1 10^3/uL (0.5-4.7); ABSOLUTE NEUT (AUTO) 9.1 10^3/uL (1.7-8.2); BASOPHILS % (AUTO) 0.5 % (0-2); EOSINOPHILS % (AUTO) 0.9 % (0-6); HEMATOCRIT 35.9 % (36.0-47.0); HEMOGLOBIN 12.2 g/dL (12.0-15.5); LYMPHOCYTES % (AUTO) 10.1 % (13-45); MEAN CORPUSCULAR HGB CONC 34.1 g/dL (32.0-36.0); MEAN CORPUSCULAR VOLUME 97 fl (80-97); MONOCYTES % (AUTO) 8.5 % (3-13); PLATELET COUNT 366 10^3/uL (150-450); RED BLOOD COUNT 3.71 10^6/uL (3.72-5.28); RED CELL DISTRIBUTION WIDTH 15.3 % (11.5-14.0); TOTAL CELLS COUNTED % (AUTO) 100 %; WHITE BLOOD COUNT 11.3 10^3/uL (4.0-10.5)
[2019-09-18 18:57] LABS: ALBUMIN 3.1 g/dL (3.5-5.0); ALKALINE PHOSPHATASE 75 U/L (38-126); ANION GAP 7 (5-19); ASPARTATE AMINO TRANSFERASE 17 U/L (14-36); BILIRUBIN,TOTAL 0.3 mg/dL (0.2-1.3); BLOOD UREA NITROGEN 20 mg/dL (7-20); CALCIUM 8.8 mg/dL (8.4-10.2); CARBON DIOXIDE 24 mmol/L (22-30); CHLORIDE 105 mmol/L (98-107); CREATINE KINASE 32 U/L (30-135); GLUCOSE 109 mg/dL (75-110); POTASSIUM 4.1 mmol/L (3.6-5.0); TOTAL PROTEIN 5.8 g/dL (6.3-8.2)
[2019-09-18 19:11] LABS: CREATINE KINASE MB 0.71 ng/mL (<4.55)
[2019-09-18 19:14] LABS: FREE T4 (FREE THYROXINE) 1.24 ng/dL (0.78-2.19)
[2019-09-18 19:20] LABS: TROPONIN I < 0.012 ng/mL
[2019-09-18 19:28] LABS: THYROID STIMULATING HORMONE 1.76 uIU/mL (0.47-4.68)
[2019-09-18 19:37] LABS: UR PRO/CREAT RATIO RESULT 0.8 mg/mg (0.0-0.2); URINE CREATININE 18.5 mg/dL (15-278); URINE PROTEIN 15.7 mg/dL (<12)
--- NOTE | 2019-09-18 19:45 | PDOC PROGRESS REPORT ---
Subjective Progress Note for:: 09/18/19 Subjective:: Patient seen by the bedside, she developed episode of paroxysmal atrial fibrillation, she was symptomatic the telemetry strips was reviewed, she be transferred to [facility] for close monitoring Reason For Visit: PAROXYSMAL ATRIAL FIBRILLATION Physical Exam Vital Signs: Temp Pulse Resp BP Pulse Ox 98.1 F 92 17 148/97 H 97 09/18/19 11:30 09/18/19 18:02 09/18/19 18:02 09/18/19 18:02 09/18/19 18:02 Intake & Output 09/17/19 09/18/19 09/19/19 06:59 06:59 06:59 Intake Total 370 720 Output Total 2300 Balance -1930 720 Weight 73.1 kg General appearance: PRESENT: no acute distress Eye exam: PRESENT: PERRLA Respiratory exam: PRESENT: clear to auscultation franky Cardiovascular exam: PRESENT: +S1, +S2 GI/Abdominal exam: PRESENT: soft Neurological exam: PRESENT: alert Results Laboratory Results: 09/18/19 18:11 09/18/19 18:11 09/18/19 09/18/19 09/18/19 18:11 18:11 18:11 WBC 11.3 H RBC 3.71 L Hgb 12.2 Hct 35.9 L MCV 97 MCH 33.0 MCHC 34.1 RDW 15.3 H Plt Count 366 Seg Neutrophils % 80.0 H Sodium 136.2 L Potassium 4.1 Chloride 105 Carbon Dioxide 24 Anion Gap 7 BUN 20 Creatinine 0.72 Est GFR ( Amer) > 60 Glucose 109 Calcium 8.8 Total Bilirubin 0.3 AST 17 Alkaline Phosphatase 75 Total Protein 5.8 L Albumin 3.1 L TSH 1.76 Free T4 1.24 09/17/19 13:40 Clean Catch Midstream Urine Culture - Final 9,000 col/ml 09/18/19 09/18/19 18:11 18:11 Creatine Kinase 32 CK-MB (CK-2) 0.71 Troponin I < 0.012 Impressions: Ankle X-Ray 09/17/19 00:00 IMPRESSION: NO EXPLANATION FOR PAIN IN THE RIGHT AND LEFT ANKLES. Abdomen/Pelvis CT 09/17/19 11:47 IMPRESSION: Diverticular change involving the colon. No acute diverticulitis. Assessment & Plan - Diagnosis (1) Leucocytosis Qualifiers: Leukocytosis type: unspecified Qualified Code(s): D72.829 - Elevated white blood cell count, unspecified Is this a current diagnosis for this admission?: Yes (2) Abdominal pain Qualifiers: Abdominal location: generalized Qualified Code(s): R10.84 - Generalized abdominal pain Is this a current diagnosis for this admission?: Yes (3) Paroxysmal atrial fibrillation with RVR Is this a current diagnosis for this admission?: Yes Plan: She developed paroxysmal atrial fibrillation with RVR, she will be transferred to [facility], 2D echo is ordered, cardiac enzymes ordered, trend function test - Time Time Spent with patient: 35 or more minutes Level of Care: [facility]
[2019-09-18] MEDS: DILTIAZEM HCL 120 MG CAP.SR.24H PO SCH (20:34)
[2019-09-18] MEDS: PANTOPRAZOLE SODIUM 40 MG TABLET.DR PO SCH (21:54)
[2019-09-18] MEDS: NYSTATIN CREAM 15 GM TP SCH (21:55)
[2019-09-18] MEDS: IRON POLYSACCHARIDES COMPLEX 150 MG CAPSULE PO SCH (21:57)
[2019-09-18] MEDS ORDERED: (PENDING PHARMACY ID) (Bimatoprost [Lumigan 0.01% Oph Soln 2.5 Ml/Bottle] 1 DROP) OU SCH (22:00)
[2019-09-18] MEDS ORDERED: LATANOPROST 0.005% OPH SOLN 2.5 ML OU SCH (22:00)
[2019-09-18] MEDS: TRIAMCINOLONE ACETONIDE 0.5% CREAM 15 GM TOP SCH (22:02)
[2019-09-19 02:32] LABS: CREATINE KINASE MB 0.63 ng/mL (<4.55)
[2019-09-19 02:37] LABS: TROPONIN I < 0.012 ng/mL
[2019-09-19] MEDS: TRIAMCINOLONE ACETONIDE 0.5% CREAM 15 GM TOP SCH (09:02)
[2019-09-19] MEDS: NYSTATIN CREAM 15 GM TP SCH (09:03)
[2019-09-19] MEDS: DILTIAZEM HCL 120 MG CAP.SR.24H PO SCH (09:05)
[2019-09-19] MEDS: PANTOPRAZOLE SODIUM 40 MG TABLET.DR PO SCH (09:05)
[2019-09-19] MEDS: IRON POLYSACCHARIDES COMPLEX 150 MG CAPSULE PO SCH ×3 (09:06→17:25)
[2019-09-19 10:54] LABS: CREATINE KINASE MB 0.44 ng/mL (<4.55)
[2019-09-19 10:58] LABS: TROPONIN I < 0.012 ng/mL
--- NOTE | 2019-09-19 16:42 | PDOC DISCHARGE SUMMARY ---
Impression - Admit/DC Date/PCP Admission Date/Primary Care Provider: 09/17/19 11:16 ARACELI CORTEZ MD Discharge Date: 09/19/19 - Discharge Diagnosis (1) Leucocytosis Is this a current diagnosis for this admission?: Yes (2) Abdominal pain Is this a current diagnosis for this admission?: Yes (3) Paroxysmal atrial fibrillation with RVR Is this a current diagnosis for this admission?: Yes - Additional Information Resuscitation Status: Full Code Referrals: ARACELI CORTEZ MD [Primary Care Provider] - 09/25/19 10:00 am Prescriptions: Levofloxacin [Levaquin 750 mg Tablet] 750 mg PO DAILY #10 tab Home Medications: Albuterol Sulfate [Proair HFA Inhalation Aerosol 8.5 gm MDI] 2 puff IH Q6HP PRN 12/26/18 Cyanocobalamin (Vitamin B-12) [Vitamin B-12 Inj 1000 Mcg/1 ml Vial] 1 ml IM TH@1000 12/26/18 Dexlansoprazole [Dexilant 60 mg Capsule] 60 mg PO DAILY 12/26/18 Ergocalciferol (Vitamin D2) [Drisdol 50,000 unit (1.25MG) Capsule] 50,000 unit PO JORGE@1000 12/26/18 Ibandronate Sodium [Boniva] 150 mg PO .MONTHLY 12/26/18 Triamcinolone Acetonide [Aristocort 0.5% Cream 15 gm] 1 applic TOP BID 12/26/18 Nystatin [Mycostatin Cream 15 gm] 1 applic TP BID 02/09/19 Diltiazem HCl [Cardizem Cd 120 mg Capsule] 120 mg PO DAILY 05/03/19 Bimatoprost [Lumigan 0.01% Oph Soln 2.5 ml/Bottle] 1 drop OU QHS 09/17/19 Iron Ps Complex/B12/Folic Acid [Ferrex 150 Forte Capsule] 1 each PO QID 09/17/19 Levofloxacin [Levaquin 750 mg Tablet] 750 mg PO DAILY #10 tab 09/19/19 Triamcinolone Acetonide [Aristocort 0.5% Cream 15 gm] 1 applic TOP Q12 tube 09/19/19 History of Present Illiness History of Present Illness: MICHAEL CAMEJO is a 68 year old female, She came to the office for evaluation of abdominal pain, diffuse, she has a history of recurrent diverticulitis, she was admitted directly for evaluation, the blood work demonstrated leukocytosis with white cell count of 15,000 Suggesting systemic inflammation, the CAT scan of abdomen and pelvis with oral contrast was obtained, it demonstrated diverticular change throughout the colon most marked in the descending and sigmoid colon there was no acute diverticulitis, She also complained of multiple symptoms in cluding lower symmetry swelling, palpitation. Hospital Course Hospital Course: Patient was admitted for the management of acute diverticulitis she was treated empirically with IV antibiotic Levaquin, the CAT scan of the abdomen and pelvis did not demonstrate any CT evidence of acute diverticulitis. Patient have a history of recurrent diverticulitis, there was evidence of systemic inflammation with leukocytosis patient also have abdominal symptoms pain with tenderness on palpation because of all these she was empirically treated for acute diverticulitis. Hospital course was complicated with paroxysmal atrial fibrillation, nonsustained, it terminated very quickly, a 2D echo was obtained, demonstrated preserved ejection fraction of left ventricle, the chambers are normal size, There was no indication for chronic systemic anticoagulation Physical Exam Vital Signs: Temp Pulse Resp BP Pulse Ox 98.6 F 74 18 154/73 H 95 09/19/19 11:11 09/19/19 14:00 09/19/19 11:11 09/19/19 11:11 09/19/19 11:11 Intake & Output 09/18/19 09/19/19 09/20/19 06:59 06:59 06:59 Intake Total 370 1890 470 Output Total 2300 2850 Balance -1930 -960 470 Weight 73.1 kg 71.2 kg General appearance: PRESENT: no acute distress Eye exam: PRESENT: PERRLA Respiratory exam: PRESENT: clear to auscultation franky Cardiovascular exam: PRESENT: +S1, +S2 GI/Abdominal exam: PRESENT: soft Neurological exam: PRESENT: alert, CN II-XII grossly intact Results Laboratory Results: WBC 11.3 10^3/uL (4.0-10.5) H 09/18/19 18:11 RBC 3.71 10^6/uL (3.72-5.28) L 09/18/19 18:11 Hgb 12.2 g/dL (12.0-15.5) 09/18/19 18:11 Hct 35.9 % (36.0-47.0) L 09/18/19 18:11 MCV 97 fl (80-97) 09/18/19 18:11 MCH 33.0 pg (27.0-33.4) 09/18/19 18:11 MCHC 34.1 g/dL (32.0-36.0) 09/18/19 18:11 RDW 15.3 % (11.5-14.0) H 09/18/19 18:11 Plt Count 366 10^3/uL (150-450) 09/18/19 18:11 Lymph % (Auto) 10.1 % (13-45) L 09/18/19 18:11 [place] % (Auto) 8.5 % (3-13) 09/18/19 18:11 Eos % (Auto) 0.9 % (0-6) 09/18/19 18:11 Baso % (Auto) 0.5 % (0-2) 09/18/19 18:11 Absolute Neuts (auto) 9.1 10^3/uL (1.7-8.2) H 09/18/19 18:11 Absolute Lymphs (auto) 1.1 10^3/uL (0.5-4.7) 09/18/19 18:11 Absolute Monos (auto) 1.0 10^3/uL (0.1-1.4) 09/18/19 18:11 Absolute Eos (auto) 0.1 10^3/uL (0.0-0.6) 09/18/19 18:11 Absolute Basos (auto) 0.1 10^3/uL (0.0-0.2) 09/18/19 18:11 Seg Neutrophils % 80.0 % (42-78) H 09/18/19 18:11 Sodium 136.2 mmol/L (137-145) L 09/18/19 18:11 Potassium 4.1 mmol/L (3.6-5.0) 09/18/19 18:11 Chloride 105 mmol/L (98-107) 09/18/19 18:11 Carbon Dioxide 24 mmol/L (22-30) 09/18/19 18:11 Anion Gap 7 (5-19) 09/18/19 18:11 BUN 20 mg/dL (7-20) 09/18/19 18:11 Creatinine 0.72 mg/dL (0.52-1.25) 09/18/19 18:11 Est GFR ( Amer) > 60 (>60) 09/18/19 18:11 Est GFR (MDRD) Non-Af > 60 (>60) 09/18/19 18:11 Glucose 109 mg/dL (75-110) 09/18/19 18:11 Calcium 8.8 mg/dL (8.4-10.2) 09/18/19 18:11 Total Bilirubin 0.3 mg/dL (0.2-1.3) 09/18/19 18:11 Direct Bilirubin 0.0 mg/dL (0.0-0.4) 09/18/19 18:11 Neonat Total Bilirubin Not Reportable 09/18/19 18:11 Neonat Direct Bilirubin Not Reportable 09/18/19 18:11 Neonat Indirect Bili Not Reportable 09/18/19 18:11 AST 17 U/L (14-36) 09/18/19 18:11 ALT 17 U/L (<35) 09/18/19 18:11 Alkaline Phosphatase 75 U/L (38-126) 09/18/19 18:11 Creatine Kinase 22 U/L (30-135) L 09/19/19 09:58 CK-MB (CK-2) 0.44 ng/mL (<4.55) 09/19/19 09:58 Troponin I < 0.012 ng/mL 09/19/19 09:58 Total Protein 5.8 g/dL (6.3-8.2) L 09/18/19 18:11 Albumin 3.1 g/dL (3.5-5.0) L 09/18/19 18:11 TSH 1.76 uIU/mL (0.47-4.68) 09/18/19 18:11 Free T4 1.24 ng/dL (0.78-2.19) 09/18/19 18:11 Urine Color STRAW 09/17/19 13:40 Urine Appearance CLEAR 09/17/19 13:40 Urine pH 8.0 (5.0-9.0) 09/17/19 13:40 Ur Specific [place] 1.006 09/17/19 13:40 Urine Protein NEGATIVE mg/dL (NEGATIVE) 09/17/19 13:40 Urine Glucose (UA) NEGATIVE mg/dL (NEGATIVE) 09/17/19 13:40 Urine Ketones NEGATIVE mg/dL (NEGATIVE) 09/17/19 13:40 Urine Blood NEGATIVE (NEGATIVE) 09/17/19 13:40 Urine Nitrite NEGATIVE (NEGATIVE) 09/17/19 13:40 Urine Bilirubin NEGATIVE (NEGATIVE) 09/17/19 13:40 Urine Urobilinogen NEGATIVE mg/dL (<2.0) 09/17/19 13:40 Ur Leukocyte Esterase NEGATIVE (NEGATIVE) 09/17/19 13:40 Urine WBC (Auto) 0 /HPF 09/17/19 13:40 Urine RBC (Auto) 0 /HPF 09/17/19 13:40 Urine Bacteria (Auto) 1+ /HPF 09/17/19 13:40 Squamous Epi Cells Auto 1 /HPF 09/17/19 13:40 Urine Mucus (Auto) RARE /LPF 09/17/19 13:40 Urine Creatinine 18.5 mg/dL (15-278) 09/17/19 13:40 Protein/Creatinin Ratio 0.8 mg/mg (0.0-0.2) H 09/17/19 13:40 Urine Total Protein 15.7 mg/dL (<12) H 09/17/19 13:40 Urine Ascorbic Acid NEGATIVE (NEGATIVE) 09/17/19 13:40 09/18/19 09/19/19 09/19/19 18:11 01:55 09:58 CK-MB (CK-2) 0.71 0.63 0.44 Troponin I < 0.012 < 0.012 < 0.012 Impressions: Ankle X-Ray 09/17/19 00:00 IMPRESSION: NO EXPLANATION FOR PAIN IN THE RIGHT AND LEFT ANKLES. Abdomen/Pelvis CT 09/17/19 11:47 IMPRESSION: Diverticular change involving the colon. No acute diverticulitis. Stroke Is this a Stroke Patient?: No Acute Heart Failure - Is this a Heart Failure Patient?: No
[2019-09-19 17:29] VITALS: BP 146/82
[2019-09-19] MEDS ORDERED: LEVOFLOXACIN 750 MG TABLET PO SCH (18:00)
--- NOTE | 2019-09-19 18:46 | XCELERA REPORT ---
[address] [address] Transthoracic Echocardiogram Report Name: MICHAEL CAMEJO Age: 68 yrs Gender: Female : 1950 Patient Status: Inpatient Patient Location: [address] [place], [place] [address] Study Date: 09/18/2019 07:03 PM Height: 63 in Weight: 161 lb BSA: 1.8 m2 Procedure: A complete two-dimensional transthoracic echocardiogram was performed (2D, M-mode, spectral and color flow Doppler). The study was technically adequate with some images being suboptimal in quality. Reason For Study: paroxysmal atrial fibrillation Ordering Physician: ARACELI CORTEZ Performed By: Meghann Dey Interpretation Summary The left ventricular ejection fraction is normal. There is mild concentric left ventricular hypertrophy. Doppler measurements suggest pseudonormalized left ventricular relaxation, which is associated with grade II/IV or mild to moderate diastolic dysfunction The left ventricle is grossly normal size. Wall motion cannot be accurately commented on, but no definite regional wall motion abnormalities noted. The right ventricular systolic function is normal. Borderline left atrial enlargement. The right atrium is normal. There is a trace amount of mitral regurgitation There is no mitral valve stenosis. No aortic regurgitation is present. There is no aortic valve stenosis There is a trace amount of tricuspid regurgitation Right ventricular systolic pressure is at the upper limits of normal The aortic root is not well visualized but is probably normal size. The inferior vena cava was not visualized There is no pericardial effusion. MMode/2D Measurements & Calculations RVDd: 2.4 cm LVIDd: 3.4 cm FS: 31.0 % Ao root diam: 2.4 cm IVSd: 1.2 cm LVIDs: 2.3 cm EDV(Teich): 45.9 ml Ao root area: 4.5 cm2 LVPWd: 1.1 cm ESV(Teich): 18.4 ml LA dimension: 2.6 cm EF(Teich): 59.9 % Doppler Measurements & Calculations MV E max kathryn: MV P1/2t max kathryn: Ao V2 max: LV V1 max P.5 cm/sec 89.5 cm/sec 98.2 cm/sec 3.7 mmHg MV A max kathryn: MV P1/2t: 46.3 msec Ao max PG: LV V1 max: 95.8 cm/sec MVA(P1/2t): 4.8 cm2 3.9 mmHg 96.7 cm/sec MV E/A: 0.80 MV dec slope: 566.3 cm/sec2 MV dec time: 0.20 sec PA V2 max: PI end-d kathryn: TR max kathryn: MV P1/2t-pr_phl: 79.0 cm/sec 76.4 cm/sec 253.7 cm/sec 46.3 msec PA max PG: TR max P.5 mmHg 25.7 mmHg Left Ventricle The left ventricle is grossly normal size. There is mild concentric left ventricular hypertrophy. The left ventricular ejection fraction is normal. Doppler measurements suggest pseudonormalized left ventricular relaxation, which is associated with grade II/IV or mild to moderate diastolic dysfunction. Wall motion cannot be accurately commented on, but no definite regional wall motion abnormalities noted. Right Ventricle The right ventricle is grossly normal size. There is normal right ventricular wall thickness. The right ventricular systolic function is normal. Atria The right atrium is normal. Borderline left atrial enlargement. Interarterial septum not well visualized and not well dopplered. Cannot comment on ASD/PFO presence. Mitral Valve The mitral valve is grossly normal. There is no mitral valve stenosis. There is a trace amount of mitral regurgitation. Aortic Valve The aortic valve is grossly normal. There is no aortic valve stenosis. No aortic regurgitation is present. Tricuspid Valve The tricuspid valve is not well visualized, but is grossly normal. There is no tricuspid stenosis. There is a trace amount of tricuspid regurgitation. Right ventricular systolic pressure is at the upper limits of normal. Pulmonic Valve The pulmonic valve is not well visualized. Great Vessels The aortic root is not well visualized but is probably normal size. The inferior vena cava was not visualized. Effusions There is no pericardial effusion. : ARACELI CORTEZ Shyamal
[2019-09-20] MEDS ORDERED: CYANOCOBALAMIN (VITAMIN B-12) INJ 1000 MCG/1 ML VIAL IM SCH (10:00)
[2019-09-23] MEDS ORDERED: ERGOCALCIFEROL (VITAMIN D2) 50000 UNIT (1.25 MG) CAPSULE PO SCH (10:00)
== END 2019-09-19 17:46 | disposition home or self-care (01) ==
LOC: INTOOBSV 11:16 → 4N 11:16 → 3W 09-18 22:33
PROVIDERS: ADMIT Internal Medicine; ATTEND Internal Medicine
DX: D72.829 Elevated white blood cell count, unspecified (principal); R10.84 Generalized abdominal pain; I48.0 Paroxysmal atrial fibrillation; I10 Essential (primary) hypertension; D51.9 Vitamin B12 deficiency anemia, unspecified; Z79.899 Other long term (current) drug therapy; D50.9 Iron deficiency anemia, unspecified; Z87.19 Personal history of other diseases of the digestive system; Z90.49 Acquired absence of other specified parts of digestive tract; Z90.710 Acquired absence of both cervix and uterus; Z60.2 Problems related to living alone
CPT/HCPCS: 36415 ×3; 87040; 87086; 84439; 82553 ×2; 82550 ×2; 84156; 84443; 82570; 85025; 85027; 80076; 80048; 80053; 81001; 84484 ×2; 93306; 73610; 74176; A9270 ×11; J2270; J1170; J1956 ×2; J3490; J7030

== ENCOUNTER 2019-10-26 16:11 | Emergency (ER) | payer MEDICARE, MEDICAID ==
--- NOTE | 2019-10-26 16:45 | ER Document Report ---
ED Medical Screen (RME) - General Chief Complaint: Fever Stated Complaint: FEVER,HEADACHE Time Seen by Provider: 10/26/19 16:39 Primary Care Provider: ARACELI CORTEZ MD [Primary Care Provider] - Follow up as needed Mode of Arrival: Ambulatory Information source: Patient Notes: 68-year-old female presents to ED for complaint of a headache for the last 4 to 6 days. She states this is the worst headache she is ever had. She states she has had ongoing headaches in the past but she does not know what the medicine was she was given. She states she also has pain in her right jaw and pain in her lower back. She states she would like 15 mg of Toradol and and what ever the migraine medicine was that she got once before. She has no idea what that medicine is. He states she talked to Dr. Cortez and he never wrote her migraine medicine and told her that if she got the medicine from the emergency room to please go to the emergency room. She states she also had a fever last night. I have greeted and performed a rapid initial assessment of this patient. A comprehensive ED assessment and evaluation of the patient, analysis of test results and completion of medical decision making process will be conducted by an additional ED providers. TRAVEL OUTSIDE OF THE [place] IN LAST 30 DAYS: No - Related Data Allergies/Adverse Reactions: aspirin Allergy (Severe, Verified 08/17/19 20:40) Anaphylaxis Penicillins Allergy (Severe, Verified 08/17/19 20:40) Anaphylaxis hydrocodone [From Vicodin] Allergy (Intermediate, Verified 08/17/19 20:40) Anaphylaxis Sulfa (Sulfonamide Antibiotics) Allergy (Intermediate, Verified 08/17/19 20:40) iching, nausea codeine Allergy (Mild, Verified 08/17/19 20:40) Diarrhea meperidine HCl [From Demerol] Allergy (Mild, Verified 08/17/19 20:40) heart palpitations ciprofloxacin Adverse Reaction (Verified 08/17/19 20:40) NAUSEA, ITCHING Past Medical History - Social History Family history: Reviewed & Not Pertinent - Past Medical History Cardiac Medical History: Reports: Hx Hypertension Denies: Hx Congestive Heart Failure, Hx Heart Attack Pulmonary Medical History: Reports: Hx Asthma, Hx Bronchitis, Hx Pneumonia Denies: Hx COPD, Hx Tuberculosis Neurological Medical History: Denies: Hx Seizures, Hx Parkinson's Disease Renal/ Medical History: Denies: Hx End Stage Renal Disease, Hx Peritoneal Dialysis GI Medical History: Reports: Hx Crohn's Disease, Hx Diverticulitis, Hx Gastroesophageal Reflux Disease, Hx Hiatal Hernia, Hx Irritable Bowel. Denies: Hx Cirrhosis, Hx Hepatitis Musculoskeltal Medical History: Reports Hx Arthritis, Reports Hx Musculoskeletal Deformity, Reports Hx Musculoskeletal Trauma Psychiatric Medical History: Reports: Hx Anxiety, Hx Depression Denies: Hx Bipolar Disorder Infectious Medical History: Denies: Hx Hepatitis Past Surgical History: Reports: Hx Abdominal Surgery - small intestine removal, Hx Appendectomy, Hx Bowel Surgery - small intestine, Hx Breast Surgery - biopsy, Hx Hysterectomy, Hx Neurologic Surgery - brain tumor removed, Hx Tonsillectomy. Denies: Hx Mastectomy, Hx Pacemaker - Immunizations Immunizations up to date: Yes Hx Diphtheria, Pertussis, Tetanus Vaccination: Yes - 09/2010 Physical Exam - Vital signs Vitals: Temp Pulse Resp BP Pulse Ox 97.6 F 93 16 158/93 H 98 10/26/19 16:17 10/26/19 16:17 10/26/19 16:17 10/26/19 16:17 10/26/19 16:17 Course - Vital Signs Vital signs: Temp Pulse Resp BP Pulse Ox 97.6 F 93 16 158/93 H 98 10/26/19 16:17 10/26/19 16:17 10/26/19 16:17 10/26/19 16:17 10/26/19 16:17 Doctor's Discharge - Discharge Referrals: ARACELI CORTEZ MD [Primary Care Provider] - Follow up as needed
--- NOTE | 2019-10-26 17:45 | RADIOLOGY REPORT (SQ) ---
EXAM DESCRIPTION: CT HEAD WITHOUT COMPLETED DATE/TIME: 10/26/2019 5:30 pm REASON FOR STUDY: States worse headache in her life COMPARISON: 2018 TECHNIQUE: Axial images acquired through the brain without intravenous contrast. Images reviewed wi th bone, brain and subdural windows. Additional sagittal and coronal reconstructions were generated. Images stored on PACS. All CT scanners at this facility use dose modulation, iterative reconstruction, and/or weight based d osing when appropriate to reduce radiation dose to as low as reasonably achievable (ALARA). [facility]: Dose Right [facility]: CareDose [facility]: Dose Right [facility]: Teradose 4D [facility]: [employer] RADIATION DOSE: CT Rad equipment meets quality standard of care and radiation dose reduction techniq ues were employed. CTDIvol: 53.2 mGy. DLP: 991 mGy-cm. mGy. LIMITATIONS: None. FINDINGS: VENTRICLES: Normal size and contour. CEREBRUM: No masses. No hemorrhage. No midline shift. No evidence for acute infarction. Normal gra y/white matter differentiation. No areas of low density in the white matter. CEREBELLUM: No masses. No hemorrhage. No alteration of density. No evidence for acute infarction. EXTRAAXIAL SPACES: No fluid collections. No masses. ORBITS AND GLOBE: No intra- or extraconal masses. Normal contour of globe without masses. CALVARIUM: No fracture. PARANASAL SINUSES: No fluid or mucosal thickening. SOFT TISSUES: No mass or hematoma. OTHER: No other significant finding. IMPRESSION: NORMAL BRAIN CT WITHOUT CONTRAST. EVIDENCE OF ACUTE STROKE: NO. COMMENT: Quality ID # [id number]: Final reports with documentation of one or more dose reduction techniques (e.g., Automated exposure control, adjustment of the mA and/or kV according to patient size, use of iterative reconstruction technique) TECHNICAL DOCUMENTATION: JOB ID: [id number] 2010 [facility]- All Rights Reserved Reading location - IP/workstation name: [email or web address]
[2019-10-26 18:20] LABS: ABSOLUTE EOSINOPHILS # (AUTO) 0.1 10^3/uL (0.0-0.6); ABSOLUTE LYMPHOCYTES (AUTO) 1.5 10^3/uL (0.5-4.7); ABSOLUTE MONOCYTES (AUTO) 0.6 10^3/uL (0.1-1.4); ABSOLUTE NEUT (AUTO) 5.1 10^3/uL (1.7-8.2); BASOPHILS % (AUTO) 0.6 % (0-2); EOSINOPHILS % (AUTO) 1.5 % (0-6); HEMATOCRIT 43.1 % (36.0-47.0); HEMOGLOBIN 14.6 g/dL (12.0-15.5); MEAN CORPUSCULAR HEMOGLOBIN 33.6 pg (27.0-33.4); MEAN CORPUSCULAR HGB CONC 33.9 g/dL (32.0-36.0); MEAN CORPUSCULAR VOLUME 99 fl (80-97); MONOCYTES % (AUTO) 8.7 % (3-13); PLATELET COUNT 429 10^3/uL (150-450); RED BLOOD COUNT 4.35 10^6/uL (3.72-5.28); RED CELL DISTRIBUTION WIDTH 15.7 % (11.5-14.0); SEGMENTED NEUTROPHILS % (AUTO) 69.2 % (42-78); TOTAL CELLS COUNTED % (AUTO) 100 %; WHITE BLOOD COUNT 7.3 10^3/uL (4.0-10.5)
[2019-10-26 18:32] LABS: APPEARANCE,URINE CLEAR; BILIRUBIN,URINE NEGATIVE (NEGATIVE); COLOR,URINE YELLOW; GLUCOSE, URINE NEGATIVE (NEGATIVE); KETONES,URINE TRACE mg/dL (NEGATIVE); PROTEIN,URINE NEGATIVE (NEGATIVE); UROBILINOGEN,URINE NEGATIVE mg/dL (<2.0)
[2019-10-26 18:35] LABS: INTERNATIONAL RATION (INR) 0.96; PARTIAL THROMBOPLASTIN TIME 30.7 SEC (23.5-35.8); PROTHROMBIN TIME 12.8 SEC (11.4-15.4)
[2019-10-26 18:36] LABS: ALBUMIN 4.4 g/dL (3.5-5.0); ALKALINE PHOSPHATASE 72 U/L (38-126); ANION GAP 10 (5-19); ASPARTATE AMINO TRANSFERASE 24 U/L (14-36); BILIRUBIN,DIRECT 0.3 mg/dL (0.0-0.4); BILIRUBIN,TOTAL 0.8 mg/dL (0.2-1.3); BLOOD UREA NITROGEN 11 mg/dL (7-20); CALCIUM 9.6 mg/dL (8.4-10.2); CARBON DIOXIDE 29 mmol/L (22-30); CHLORIDE 99 mmol/L (98-107); GLUCOSE 82 mg/dL (75-110); POTASSIUM 3.9 mmol/L (3.6-5.0); TOTAL PROTEIN 7.6 g/dL (6.3-8.2)
[2019-10-26 18:50] LABS: URINE SPECIFIC GRAVITY > 1.060
[2019-10-26] MEDS ORDERED: KETOROLAC TROMETHAMINE 60 MG/2 ML SDV IM ONE (21:12)
--- NOTE | 2019-10-26 21:19 | ER Document Report ---
ED General - General Chief Complaint: Headache Stated Complaint: FEVER,HEADACHE Time Seen by Provider: 10/26/19 16:39 Primary Care Provider: ARACELI CORTEZ MD [Primary Care Provider] - Follow up as needed Mode of Arrival: Ambulatory TRAVEL OUTSIDE OF THE [place] IN LAST 30 DAYS: No - HPI Notes: Sherrell Branham is a 68-year-old female regularly followed by Dr. Cortez with a longstanding history of multiple chronic pain issues who presents today primar shawna complaining of headache. She reports a history of migraine headaches and says her head has been hurting worse than usual over the last 5 days. She denies any trauma. She denies fever or vomiting. She denies any focal neurologic deficit. Patient reports a history of "severe TMJ syndrome" and says she has been advised she should have surgery on this in the past but is never gone for procedure. She also reports that she has rheumatoid arthritis and says it affects all joints in her body and especially her back. She apparently has not been seen by hoseman. When asked patient focusing on somewhat on what her expectations were today she said she would like to have her head rescanned and also would like to get a shot of Toradol and a new prescription for Compazine which is been helpful for her migraine symptoms in the past. - Related Data Allergies/Adverse Reactions: aspirin Allergy (Severe, Verified 08/17/19 20:40) Anaphylaxis Penicillins Allergy (Severe, Verified 08/17/19 20:40) Anaphylaxis hydrocodone [From Vicodin] Allergy (Intermediate, Verified 08/17/19 20:40) Anaphylaxis Sulfa (Sulfonamide Antibiotics) Allergy (Intermediate, Verified 08/17/19 20:40) iching, nausea codeine Allergy (Mild, Verified 08/17/19 20:40) Diarrhea meperidine HCl [From Demerol] Allergy (Mild, Verified 08/17/19 20:40) heart palpitations ciprofloxacin Adverse Reaction (Verified 08/17/19 20:40) NAUSEA, ITCHING Past Medical History - General Information source: Patient - Social History Smoking Status: Never Smoker Family History: Reviewed & Not Pertinent, Arthritis, CAD, CVA, DM, Hyperlipidemia, Hypertension, Malignancy, Thyroid Disfunction Patient has suicidal ideation: No Patient has homicidal ideation: No - Past Medical History Cardiac Medical History: Reports: Hx Hypertension Denies: Hx Congestive Heart Failure, Hx Heart Attack Pulmonary Medical History: Reports: Hx Asthma, Hx Bronchitis, Hx Pneumonia Denies: Hx COPD, Hx Tuberculosis Neurological Medical History: Denies: Hx Seizures, Hx Parkinson's Disease Renal/ Medical History: Denies: Hx End Stage Renal Disease, Hx Peritoneal Dialysis GI Medical History: Reports: Hx Crohn's Disease, Hx Diverticulitis, Hx Gastroesophageal Reflux Disease, Hx Hiatal Hernia, Hx Irritable Bowel. Denies: Hx Cirrhosis, Hx Hepatitis Musculoskeletal Medical History: Reports Hx Arthritis, Reports Hx Musculoskeletal Deformity, Reports Hx Musculoskeletal Trauma Psychiatric Medical History: Reports: Hx Anxiety, Hx Depression Denies: Hx Bipolar Disorder Infectious Medical History: Denies: Hx Hepatitis Past Surgical History: Reports: Hx Abdominal Surgery - small intestine removal, Hx Appendectomy, Hx Bowel Surgery - small intestine, Hx Breast Surgery - biopsy, Hx Hysterectomy, Hx Neurologic Surgery - brain tumor removed, Hx Tonsillectomy. Denies: Hx Mastectomy, Hx Pacemaker - Immunizations Immunizations up to date: Yes Hx Diphtheria, Pertussis, Tetanus Vaccination: Yes - 09/2010 Hx Pneumococcal Vaccination: 08/24/10 Review of Systems - Review of Systems Notes: Constitutional: Negative for fever. HENT: Negative for sore throat. Eyes: Negative for visual changes. Cardiovascular: Negative for chest pain. Respiratory: Negative for shortness of breath. Gastrointestinal: Negative for abdominal pain, vomiting or diarrhea. Genitourinary: Negative for dysuria. Musculoskeletal: Chronic back pain. Skin: Negative for rash. Neurological: As per HPI. 10 point ROS negative except as marked above and in HPI. Physical Exam - Vital signs Vitals: Temp Pulse Resp BP Pulse Ox 97.6 F 93 16 158/93 H 98 10/26/19 16:17 10/26/19 16:17 10/26/19 16:17 10/26/19 16:17 10/26/19 16:17 - Notes Notes: GENERAL: Chronically ill-appearing elderly female currently in no acute distress . SKIN: Good turgor. Chronic ecchymoses both forearms. HEAD: Normocephalic atraumatic. EYES: PERRLA. EOMI. Conjunctivae and sclerae clear. EARS: CANALS AND TMS CLEAR. NOSE: CLEAR. MOUTH: Mild swelling and tenderness over the right TMJ. Moist mucosa. Good dentition. No stridor or edema. No drooling. NECK: Supple. No masses or thyromegaly. No adenopathy. Carotids 2+ without bruits. No JVD. BACK: Symmetrical with diffuse tenderness of the spine. CHEST: Respirations unlabored. Breath sounds clear and symmetrical. HEART: Regular rhythm. No murmur gallop or rub. ABDOMEN: Soft nontender without masses, organomegaly or rebound. Bowel sounds normally active. No bruits. GENITALIA: Deferred. EXTREMITIES: No edema. No calf tenderness. Cap refill less than 1.5 seconds. Dorsalis pedis and posterior tibial pulses 3+ and symmetrical. NEUROLOGICAL: GCS 15. Alert and oriented x3. Normal gait. Fluent speech. Cranial nerves II through XII intact. Sensorimotor and cerebellar normal. Normal tone. PSYCHIATRIC: Flat affect. Course - Re-evaluation Re-evalutation: 10/26/19 21:19 Patient has a lot of chronic pain issues. I am going to give her injection of IM Toradol and refill her Compazine. I talked with her at some length and recommended that she get back to her primary care doctor for additional follow- up and perhaps discuss referral to a hoseman. - Vital Signs Vital signs: Temp Pulse Resp BP Pulse Ox 97.6 F 93 16 158/93 H 98 10/26/19 16:17 10/26/19 16:17 10/26/19 16:17 10/26/19 16:17 10/26/19 16:17 - Laboratory Result Diagrams: 10/26/19 17:35 10/26/19 17:35 Laboratory results interpreted by me: 10/26/19 10/26/19 17:35 17:35 MCV 99 H MCH 33.6 H RDW 15.7 H Urine Ketones TRACE H - Diagnostic Test Radiology reviewed: Reports reviewed Radiology results interpreted by me: 10/26/19 21:[address] shows no acute changes per radiologist. Discharge - Discharge Clinical Impression: Chronic pain syndrome Migraine headache Qualifiers: Migraine type: unspecified Status migrainosus presence: without status uriel rainosus Intractability: not intractable Qualified Code(s): G43.909 - Migraine, unspecified, not intractable, without status migrainosus Rheumatoid arthritis Qualifiers: Rheumatoid arthritis location: multiple sites Rheumatoid factor presence: unspecified presence Qualified Code(s): M06.9 - Rheumatoid arthritis, unspecified Condition: Stable Disposition: HOME, SELF-CARE Instructions: Headache ([facility]) Prescriptions: Prochlorperazine Maleate [Compazine 5 Mg Tablet] 5 mg PO TID PRN 10 Days #30 tablet PRN Reason: For Headache Referrals: ARACELI CORTEZ MD [Primary Care Provider] - Follow up as needed
[2019-10-26 21:59] VITALS: BP 153/97
== END 2019-10-26 21:59 | disposition home or self-care (01) ==
LOC: ER 16:11
DX: G89.4 Chronic pain syndrome (principal); G43.909 Migraine, unspecified, not intractable, without status migrainosus; R50.9 Fever, unspecified; Z88.0 Allergy status to penicillin; Z88.8 Allergy status to other drugs, medicaments and biological substances; Z88.2 Allergy status to sulfonamides
CPT/HCPCS: 99284; 96372; 36415; 85025; 85610; 85730; 80053; 81001; 70450; J1885

== ENCOUNTER → 2019-10-26 | Outpatient (CLI) | payer MEDICARE, MEDICAID ==
--- NOTE | 2019-10-26 16:23 | RADIOLOGY REPORT (SQ) ---
EXAM DESCRIPTION: CT ABD/PELVIS WITH IV ORAL COMPLETED DATE/TIME: 10/26/2019 4:00 pm REASON FOR STUDY: R10.84 GENERALIZED ABDOMINAL PAIN R10.84 GENERALIZED ABDOMINAL PAIN COMPARISON: 09/17/2019 TECHNIQUE: CT scan of the abdomen and pelvis performed using helical scanning technique with dynamic intravenous contrast injection. Patient was given oral contrast. Images reviewed with lung, soft ti ssue, and bone windows. Reconstructed coronal and sagittal MPR images reviewed. Delayed images for ev aluation of the urinary system also acquired. All images stored on PACS. All CT scanners at this facility use dose modulation, iterative reconstruction, and/or weight based d osing when appropriate to reduce radiation dose to as low as reasonably achievable (ALARA). [facility]: Dose Right [facility]: CareDose [facility]: Dose Right [facility]: Teradose 4D [facility]: [employer] CONTRAST TYPE AND DOSE: contrast/concentration: Isovue 350.00 mg/ml; Total Contrast Delivered: 75.0 ml; Total Saline Delivered: 67.0 ml RENAL FUNCTION: Creatinine 0.7 RADIATION DOSE: CT Rad equipment meets quality standard of care and radiation dose reduction techniq ues were employed. CTDIvol: 8.0 - 8.1 mGy. DLP: 850 mGy-cm.. LIMITATIONS: None. FINDINGS: LOWER CHEST: Stable lingular scarring. No acute findings. Small hiatal hernia, stable. LIVER: Normal size. No masses. No dilated ducts. SPLEEN: Normal size. No focal lesions. PANCREAS: No masses. No significant calcifications. No adjacent inflammation or peripancreatic fluid collections. Pancreatic duct not dilated. GALLBLADDER: No identified stones by CT criteria. No inflammatory changes to suggest cholecystitis. ADRENAL GLANDS: No significant masses or asymmetry. RIGHT KIDNEY AND URETER: No solid masses. No significant calcifications. No hydronephrosis or hyd roureter. LEFT KIDNEY AND URETER: No solid masses. No significant calcifications. No hydronephrosis or hydr oureter. AORTA AND VESSELS: No aneurysm. No dissection. Renal arteries, SMA, celiac without stenosis. RETROPERITONEUM: No retroperitoneal adenopathy, hemorrhage or masses. BOWEL AND PERITONEAL CAVITY: Scattered colonic diverticula. No definitive evidence of diverticulitis . No evidence of intestinal obstruction. No focal bowel wall thickening. Small hiatal hernia. APPENDIX: Absent. PELVIS: No mass. No free fluid. Normal bladder. ABDOMINAL WALL: No masses. No hernias. BONES: No acute bony abnormality. No suspicious osseous lesions. Lower lumbar facet arthropathy. OTHER: No other significant finding. IMPRESSION: 1. Extensive diverticulosis without definitive findings to suggest diverticulitis. 2. No other evidence of acute intra-abdominal/pelvic process. 3. Small hiatal hernia. TECHNICAL DOCUMENTATION: JOB ID: [id number] Quality ID # [id number]: Final reports with documentation of one or more dose reduction techniques (e.g., Au tomated exposure control, adjustment of the mA and/or kV according to patient size, use of iterative reconstruction technique) 2010 [employer]- All Rights Reserved Reading location - IP/workstation name: [email or web address]
== END ==
LOC: RAD 12:00
PROVIDERS: ATTEND Internal Medicine
DX: K57.30 Diverticulosis of large intestine without perforation or abscess without bleeding (principal); R10.84 Generalized abdominal pain; K44.9 Diaphragmatic hernia without obstruction or gangrene
CPT/HCPCS: 74177; 82565

== ENCOUNTER 2020-03-10 14:11 | Emergency (ER) | payer MEDICARE, MEDICAID ==
--- NOTE | 2020-03-10 15:44 | ER Document Report ---
ED Medical Screen (RME) - General Chief Complaint: Laceration Stated Complaint: CAT SCRATCH/LEFT ARM Time Seen by Provider: 03/10/20 15:33 Primary Care Provider: ARACELI CORTEZ MD [Primary Care Provider] - Follow up as needed Mode of Arrival: Ambulatory Information source: Patient Notes: HPI; 69-year-old female presents emergency room with a cat scratch to her left forearm. Patient states she is sleeping on the couch when the cat slipped scratching her left forearm causing a significant skin tear. Reviewed previous medical records tetanus is up-to-date. States cat is up-to-date with his vaccines. PE: . Mild distress noted. Significant skin tear noted to left forearm bleeding persistent. Positive left radial pulse. Capillary refill less than 3 seconds. I have greeted and performed a rapid initial assessment of this patient. A comprehensive ED assessment and evaluation of the patient, analysis of test results and completion of the medical decision making process will be conducted by additional ED providers. I have specifically instructed the patient or family members with the patient to immediately return to any nursing staff should anything change in the patient's condition or with their chief complaint. TRAVEL OUTSIDE OF THE [place] IN LAST 30 DAYS: No - Related Data Allergies/Adverse Reactions: aspirin Allergy (Severe, Verified 03/10/20 15:33) Anaphylaxis Penicillins Allergy (Severe, Verified 03/10/20 15:33) Anaphylaxis hydrocodone [From Vicodin] Allergy (Intermediate, Verified 03/10/20 15:33) Anaphylaxis Sulfa (Sulfonamide Antibiotics) Allergy (Intermediate, Verified 03/10/20 15:33) iching, nausea codeine Allergy (Mild, Verified 03/10/20 15:33) Diarrhea meperidine HCl [From Demerol] Allergy (Mild, Verified 03/10/20 15:33) heart palpitations ciprofloxacin Adverse Reaction (Verified 03/10/20 15:33) NAUSEA, ITCHING Past Medical History - Social History Family history: Reviewed & Not Pertinent - Past Medical History Cardiac Medical History: Reports: Hx Hypertension Denies: Hx Congestive Heart Failure, Hx Heart Attack Pulmonary Medical History: Reports: Hx Asthma, Hx Bronchitis, Hx Pneumonia Denies: Hx COPD, Hx Tuberculosis Neurological Medical History: Denies: Hx Seizures, Hx Parkinson's Disease Renal/ Medical History: Denies: Hx End Stage Renal Disease, Hx Peritoneal Dialysis GI Medical History: Reports: Hx Crohn's Disease, Hx Diverticulitis, Hx Gastroesophageal Reflux Disease, Hx Hiatal Hernia, Hx Irritable Bowel. Denies: Hx Cirrhosis, Hx Hepatitis Musculoskeltal Medical History: Reports Hx Arthritis, Reports Hx Musculoskeletal Deformity, Reports Hx Musculoskeletal Trauma Psychiatric Medical History: Reports: Hx Anxiety, Hx Depression Denies: Hx Bipolar Disorder Infectious Medical History: Denies: Hx Hepatitis Past Surgical History: Reports: Hx Abdominal Surgery - small intestine removal, Hx Appendectomy, Hx Bowel Surgery - small intestine, Hx Breast Surgery - biopsy, Hx Hysterectomy, Hx Neurologic Surgery - brain tumor removed, Hx Tonsillectomy. Denies: Hx Mastectomy, Hx Pacemaker - Immunizations Immunizations up to date: Yes Hx Diphtheria, Pertussis, Tetanus Vaccination: Yes - 09/2010 Physical Exam - Vital signs Vitals: Temp Pulse Resp BP Pulse Ox 99.2 F 97 18 154/93 H 100 03/10/20 14:17 03/10/20 14:17 03/10/20 14:17 03/10/20 14:17 03/10/20 14:17 Course - Vital Signs Vital signs: Temp Pulse Resp BP Pulse Ox 99.2 F 97 18 154/93 H 100 03/10/20 14:17 03/10/20 14:17 03/10/20 14:17 03/10/20 14:17 03/10/20 14:17 Doctor's Discharge - Discharge Referrals: ARACELI CORTEZ MD [Primary Care Provider] - Follow up as needed
[2020-03-10] MEDS ORDERED: KETOROLAC TROMETHAMINE 60 MG/2 ML SDV IM ONE (18:38)
[2020-03-10] MEDS ORDERED: DIPH/PERTUSS(ACELL)/TETANUS VAC/PF 0.5 ML SYR (>=10YO) IM ONE (18:39)
--- NOTE | 2020-03-10 19:20 | ER Document Report ---
Entered by CANDE CAPUTO SCRIBE 03/10/20 1828 Acting as scribe for:TIAN OSULLIVAN DO ED General - General Chief Complaint: Skin Tear(s) Stated Complaint: CAT SCRATCH/LEFT ARM Time Seen by Provider: 03/10/20 15:33 Primary Care Provider: ARACELI CORTEZ MD [Primary Care Provider] - Follow up as needed Mode of Arrival: Ambulatory Notes: This 69 year old female patient presents to the ED today with complaints of a cat scratch to her left forearm that occurred prior to arrival. Patient reports pain to the site and states that it is an isolated injury. She is unsure of her last tetanus shot, but notes that her cat's shots are UTD. Denies SI or HI. TRAVEL OUTSIDE OF THE [place] IN LAST 30 DAYS: No - Related Data Allergies/Adverse Reactions: aspirin Allergy (Severe, Verified 03/10/20 15:33) Anaphylaxis Penicillins Allergy (Severe, Verified 03/10/20 15:33) Anaphylaxis hydrocodone [From Vicodin] Allergy (Intermediate, Verified 03/10/20 15:33) Anaphylaxis Sulfa (Sulfonamide Antibiotics) Allergy (Intermediate, Verified 03/10/20 15:33) iching, nausea codeine Allergy (Mild, Verified 03/10/20 15:33) Diarrhea meperidine HCl [From Demerol] Allergy (Mild, Verified 03/10/20 15:33) heart palpitations ciprofloxacin Adverse Reaction (Verified 03/10/20 15:33) NAUSEA, ITCHING Past Medical History - General Information source: Patient - Social History Smoking Status: Never Smoker Cigarette use (# per day): No Chew tobacco use (# tins/day): No Smoking Education Provided: No Drug Abuse: None Family History: Reviewed & Not Pertinent, Arthritis, CAD, CVA, DM, Hyperlipidemia, Hypertension, Malignancy, Thyroid Disfunction Patient has suicidal ideation: No Patient has homicidal ideation: No - Past Medical History Cardiac Medical History: Reports: Hx Hypertension Pulmonary Medical History: Reports: Hx Asthma, Hx Bronchitis, Hx Pneumonia GI Medical History: Reports: Hx Crohn's Disease, Hx Diverticulitis, Hx Gastroeso phageal Reflux Disease, Hx Hiatal Hernia, Hx Irritable Bowel Musculoskeletal Medical History: Reports Hx Arthritis, Reports Hx Musculoskeletal Deformity, Reports Hx Musculoskeletal Trauma Psychiatric Medical History: Reports: Hx Anxiety, Hx Depression Past Surgical History: Reports: Hx Appendectomy, Hx Bowel Surgery - small intestine, Hx Breast Surgery - biopsy, Hx Hysterectomy, Hx Neurologic Surgery - brain tumor removed, Hx Tonsillectomy - Immunizations Immunizations up to date: Yes Hx Diphtheria, Pertussis, Tetanus Vaccination: Yes - 09/2010 Hx Pneumococcal Vaccination: 08/24/10 Review of Systems - Review of Systems Constitutional: No symptoms reported EENT: No symptoms reported Cardiovascular: No symptoms reported Respiratory: No symptoms reported Gastrointestinal: No symptoms reported Genitourinary: No symptoms reported Female Genitourinary: No symptoms reported Musculoskeletal: See HPI, Muscle pain Skin: See HPI, Other - Cat scratch Hematologic/Lymphatic: No symptoms reported Neurological/Psychological: See HPI. denies: Homicidal ideation, Suicidal ideation -: Yes All other systems reviewed and negative Physical Exam - Vital signs Vitals: Temp Pulse Resp BP Pulse Ox 99.2 F 97 18 154/93 H 100 03/10/20 14:17 03/10/20 14:17 03/10/20 14:17 03/10/20 14:03/10/20 14:17 - General General appearance: Alert, Anxious In distress: Mild - HEENT Head: Normocephalic, Atraumatic Eyes: Normal Extraocular movements intact: Yes Pupils: PERRL - Respiratory Respiratory status: No respiratory distress Chest status: Nontender Breath sounds: Normal Chest palpation: Normal - Cardiovascular Rhythm: Regular Heart sounds: Normal auscultation Murmur: No Friction rub: No Gallop: None auscultated - Abdominal Inspection: Normal Distension: No distension Bowel sounds: Normal Tenderness: Nontender - Abdomen soft Organomegaly: No organomegaly - Back Back: Normal, Nontender - Extremities General lower extremity: Normal inspection Forearm: Other - Skin tear - Neurological Neuro grossly intact: Yes Orientation: AAOx4 [place] Coma Scale Eye Opening: Spontaneous [place] Coma Scale Verbal: Oriented [place] Coma Scale Motor: Obeys Commands [place] Coma Scale Total: 15 - Psychological Associated symptoms: Anxious, Tearful, Other - Emotional. Denies SI or HI. - Skin Skin irregularity: other - Irregular, jagged skin tear that is 5 cm in length and 4 cm in width noted to dorsal surface of left forearm with loss of skin, bleeding is controlled. No signs of cellulitis. Single isolated injury. Notes: Thin skin with multiple bruises Course - Re-evaluation Re-evalutation: 03/10/20 19:23 MDM 69 year old female with skin tear and skin loss to left forearm. No repair at this time is possible. Bleeding is controlled. Discussed follow up and she expressed understanding. - Vital Signs Vital signs: Temp Pulse Resp BP Pulse Ox 99.2 F 97 18 154/93 H 100 03/10/20 14:17 03/10/20 14:17 03/10/20 14:17 03/10/20 14:17 03/10/20 14:17 Discharge - Discharge Clinical Impression: Skin tear Condition: Stable Disposition: HOME, SELF-CARE Instructions: Laceration Care ([facility]), Tetanus Immunization Given ([facility]), Soap Cleansing ([facility]) Additional Instructions: Wash the wound gently with soap and water and have the wound rechecked either with your primary doctor or here on Tuesday. Please return here for any problems or any concerns. Referrals: ARACELI CORTEZ MD [Primary Care Provider] - Follow up as needed I personally performed the services described in the documentation, reviewed and edited the documentation which was dictated to the scribe in my presence, and it accurately records my words and actions.
[2020-03-10 19:50] VITALS: BP 161/90
== END 2020-03-10 19:50 | disposition home or self-care (01) ==
LOC: ER 14:11
DX: S50.812A Abrasion of left forearm, initial encounter (principal); W55.03XA Scratched by cat, initial encounter; Z88.0 Allergy status to penicillin; Z88.2 Allergy status to sulfonamides; Z88.8 Allergy status to other drugs, medicaments and biological substances; Z88.1 Allergy status to other antibiotic agents; I10 Essential (primary) hypertension; J45.909 Unspecified asthma, uncomplicated
CPT/HCPCS: 99282; 96372; 90471; 90715; J1885

== ENCOUNTER 2020-03-12 16:59 | Emergency (ER) | payer MEDICARE, MEDICAID ==
[2020-03-12 17:09] VITALS: BP 137/95
[2020-03-12] MEDS ORDERED: MUPIROCIN 2% OINTMENT 22 GM TP ONE (17:27)
--- NOTE | 2020-03-12 17:31 | ER Document Report ---
HPI - HPI Patient complains to provider of: Wound recheck Time Seen by Provider: 03/12/20 17:13 Onset: Other - 2 days Onset/Duration: Persistent Pain Level: 3 Context: Patient presents requesting a wound check and dressing change to the left forearm. Patient states she is in the process of getting seen by wound management. Patient states that she had a different dressing on that got dried to the wound and it hurt when she pulled the dressing off. Patient denies any fever. Associated Symptoms: denies: Fever Exacerbated by: Denies Relieved by: Denies Similar symptoms previously: No Recently seen / treated by doctor: Yes - ROS ROS below otherwise negative: Yes Systems Reviewed and Negative: Yes All other systems reviewed and negative - CONSTITUTIONAL Constitutional: DENIES: Fever, Chills - REPRODUCTIVE Reproductive: DENIES: : - MUSCULOSKELETAL Musculoskeletal: REPORTS: Extremity pain - DERM Notes: Skin tear Past Medical History - General Information source: Patient - Social History Smoking Status: Never Smoker Frequency of alcohol use: None Drug Abuse: None Lives with: Alone Family History: Reviewed & Not Pertinent, Arthritis, CAD, CVA, DM, Hyperlipidemia, Hypertension, Malignancy, Thyroid Disfunction - Past Medical History Cardiac Medical History: Reports: Hx Hypertension Denies: Hx Congestive Heart Failure, Hx Heart Attack Pulmonary Medical History: Reports: Hx Asthma, Hx Bronchitis, Hx Pneumonia Denies: Hx COPD, Hx Tuberculosis Neurological Medical History: Denies: Hx Seizures, Hx Parkinson's Disease Renal/ Medical History: Denies: Hx End Stage Renal Disease, Hx Peritoneal Dialysis GI Medical History: Reports: Hx Crohn's Disease, Hx Diverticulitis, Hx Gastroes ophageal Reflux Disease, Hx Hiatal Hernia, Hx Irritable Bowel. Denies: Hx Cirrhosis, Hx Hepatitis Musculoskeletal Medical History: Reports Hx Arthritis, Reports Hx Musculoske letal Deformity, Reports Hx Musculoskeletal Trauma Psychiatric Medical History: Reports: Hx Anxiety, Hx Depression Denies: Hx Bipolar Disorder Infectious Medical History: Denies: Hx Hepatitis Past Surgical History: Reports: Hx Abdominal Surgery - small intestine removal, Hx Appendectomy, Hx Bowel Surgery - small intestine, Hx Breast Surgery - biopsy, Hx Hysterectomy, Hx Neurologic Surgery - brain tumor removed, Hx Tonsillectomy. Denies: Hx Mastectomy, Hx Pacemaker - Immunizations Immunizations up to date: Yes Hx Diphtheria, Pertussis, Tetanus Vaccination: Yes - 09/2010 Hx Pneumococcal Vaccination: 08/24/10 Vertical Provider Document - CONSTITUTIONAL Agree With Documented VS: Yes Exam Limitations: No Limitations General Appearance: WD/WN, No Apparent Distress - INFECTION CONTROL TRAVEL OUTSIDE OF THE [place] IN LAST 30 DAYS: No - HEENT HEENT: Atraumatic, Normocephalic - NECK Neck: Normal Inspection - RESPIRATORY Respiratory: No Respiratory Distress - CARDIOVASCULAR Pulses: Normal: Radial - MUSCULOSKELETAL/EXTREMETIES Musculoskeletal/Extremeties: MAEW, FROM - NEURO Level of Consciousness: Awake, Alert, Appropriate Motor/Sensory: No Motor Deficit - DERM Integumentary: Warm, Dry Notes: Skin tear to middle third of left forearm, no surrounding erythema. Course - Re-evaluation Re-evalutation: 03/12/20 17:33 patient with skin tear to left forearm, no findings worrisome for infection. Patient very worried about wound management as she is unable to get in a timely manner to the wound clinic. Patient does state she plans to see her primary doctor tomorrow for recheck. - Vital Signs Vital signs: Temp Pulse Resp BP Pulse Ox 98.6 F 89 16 137/95 H 100 03/12/20 17:08 03/12/20 17:08 03/12/20 17:08 03/12/20 17:08 03/12/20 17:08 Discharge - Discharge Clinical Impression: Skin tear, Encounter for wound re-check Condition: Stable Disposition: HOME, SELF-CARE Instructions: Antibiotic Ointment Protection ([facility]), Dressing Instructions for Open Wounds ([facility]) Additional Instructions: Return immediately for any new or worsening symptoms Followup with your primary care provider, call tomorrow to make a followup appointment Follow-up with the wound clinic as planned Prescriptions: Mupirocin [Bactroban 2% Ointment 22 gm] 1 applic TP TID #22 gm Referrals: ARACELI CORTEZ MD [Primary Care Provider] - Follow up tomorrow
== END 2020-03-12 18:05 | disposition home or self-care (01) ==
LOC: ER 16:59
DX: S51.812D Laceration without foreign body of left forearm, subsequent encounter (principal); X58.XXXD Exposure to other specified factors, subsequent encounter; I10 Essential (primary) hypertension; J45.909 Unspecified asthma, uncomplicated
CPT/HCPCS: 99282; A9270; J3490

== ENCOUNTER 2020-04-13 13:22 | Emergency (ER) | payer MEDICARE, MEDICAID ==
[2020-04-13 13:49] VITALS: BP 143/86
--- NOTE | 2020-04-13 14:20 | ER Document Report ---
ED Medical Screen (RME) - General Chief Complaint: Back Pain Stated Complaint: BACK PAIN AND STOMACH SWELLING Primary Care Provider: ARACELI CORTEZ MD [Primary Care Provider] - Follow up as needed Notes: 69-year-old female with past medical history of anemia, allergies, asthma, diverticulosis presenting today with "inflammation of her lungs" for 3 weeks and hoarseness. She states she is short of breath and having chest pain that radi ates under her left breast to her left shoulder. Is actively requesting an albuterol treatment and IV fluids. Also states she has intermittent abdominal pain from her diverticulosis. Took aleve which did not alleviate her pain. Is a non smoker. States her doctor is Dr. Cortez. PE: Patient is in no acute distress, nontoxic. Lungs are clear to auscultation bilaterally, no wheezes rhonchi or rails. Heart is regular rate rhythm no murmurs rubs or gallops. Abdomen is tender in the epigastric region. Additional abdominal exam limited due to triage room. Back is ttp along paraspinals of thoracic spine. I have greeted and performed a rapid initial assessment of this patient. A comprehesive ED assessment and evaluation of this patient, analysis of test results and completion of the medical decision-making process will be conducted by additional ED providers. TRAVEL OUTSIDE OF THE [place] IN LAST 30 DAYS: No - Related Data Allergies/Adverse Reactions: aspirin Allergy (Severe, Verified 03/10/20 15:33) Anaphylaxis Penicillins Allergy (Severe, Verified 03/10/20 15:33) Anaphylaxis hydrocodone [From Vicodin] Allergy (Intermediate, Verified 03/10/20 15:33) Anaphylaxis Sulfa (Sulfonamide Antibiotics) Allergy (Intermediate, Verified 03/10/20 15:33) iching, nausea codeine Allergy (Mild, Verified 03/10/20 15:33) Diarrhea meperidine HCl [From Demerol] Allergy (Mild, Verified 03/10/20 15:33) heart palpitations ciprofloxacin Adverse Reaction (Verified 03/10/20 15:33) NAUSEA, ITCHING Past Medical History - Social History Family history: Reviewed & Not Pertinent - Past Medical History Cardiac Medical History: Reports: Hx Hypertension Denies: Hx Congestive Heart Failure, Hx Heart Attack Pulmonary Medical History: Reports: Hx Asthma, Hx Bronchitis, Hx Pneumonia Denies: Hx COPD, Hx Tuberculosis Neurological Medical History: Denies: Hx Seizures, Hx Parkinson's Disease Renal/ Medical History: Denies: Hx End Stage Renal Disease, Hx Peritoneal Dialysis GI Medical History: Reports: Hx Crohn's Disease, Hx Diverticulitis, Hx Gastroesophageal Reflux Disease, Hx Hiatal Hernia, Hx Irritable Bowel. Denies: Hx Cirrhosis, Hx Hepatitis Musculoskeltal Medical History: Reports Hx Arthritis, Reports Hx Musculoskeletal Deformity, Reports Hx Musculoskeletal Trauma Psychiatric Medical History: Reports: Hx Anxiety, Hx Depression Denies: Hx Bipolar Disorder Infectious Medical History: Denies: Hx Hepatitis Past Surgical History: Reports: Hx Abdominal Surgery - small intestine removal, Hx Appendectomy, Hx Bowel Surgery - small intestine, Hx Breast Surgery - biopsy, Hx Hysterectomy, Hx Neurologic Surgery - brain tumor removed, Hx Tonsillectomy. Denies: Hx Mastectomy, Hx Pacemaker - Immunizations Immunizations up to date: Yes Hx Diphtheria, Pertussis, Tetanus Vaccination: Yes - 09/2010 Physical Exam - Vital signs Vitals: Temp Pulse Resp BP Pulse Ox 99.2 F 87 24 H 143/86 H 100 04/13/20 13:45 04/13/20 13:45 04/13/20 13:45 04/13/20 13:45 04/13/20 13:45 Course - Vital Signs Vital signs: Temp Pulse Resp BP Pulse Ox 99.2 F 87 24 H 143/86 H 100 04/13/20 13:45 04/13/20 13:45 04/13/20 13:45 04/13/20 13:45 04/13/20 13:45 Doctor's Discharge - Discharge Referrals: ARACELI CORTEZ MD [Primary Care Provider] - Follow up as needed
[2020-04-13 15:22] LABS: ABSOLUTE LYMPHOCYTES (AUTO) 1.2 10^3/uL (0.5-4.7); ABSOLUTE MONOCYTES (AUTO) 1.2 10^3/uL (0.1-1.4); ABSOLUTE NEUT (AUTO) 10.4 10^3/uL (1.7-8.2); BASOPHILS % (AUTO) 0.3 % (0-2); EOSINOPHILS % (AUTO) 0.2 % (0-6); HEMATOCRIT 41.9 % (36.0-47.0); HEMOGLOBIN 14.2 g/dL (12.0-15.5); LYMPHOCYTES % (AUTO) 9.3 % (13-45); MEAN CORPUSCULAR HEMOGLOBIN 34.4 pg (27.0-33.4); MEAN CORPUSCULAR HGB CONC 33.8 g/dL (32.0-36.0); MEAN CORPUSCULAR VOLUME 102 fl (80-97); MONOCYTES % (AUTO) 9.7 % (3-13); PLATELET COUNT 386 10^3/uL (150-450); RED BLOOD COUNT 4.12 10^6/uL (3.72-5.28); RED CELL DISTRIBUTION WIDTH 14.3 % (11.5-14.0); SEGMENTED NEUTROPHILS % (AUTO) 80.5 % (42-78); TOTAL CELLS COUNTED % (AUTO) 100 %; WHITE BLOOD COUNT 12.9 10^3/uL (4.0-10.5)
[2020-04-13 15:33] LABS: ALBUMIN 4.2 g/dL (3.5-5.0); ALKALINE PHOSPHATASE 134 U/L (38-126); ANION GAP 7 (5-19); ASPARTATE AMINO TRANSFERASE 24 U/L (14-36); BILIRUBIN,DIRECT 0.1 mg/dL (0.0-0.4); BILIRUBIN,TOTAL 0.7 mg/dL (0.2-1.3); BLOOD UREA NITROGEN 34 mg/dL (7-20); CARBON DIOXIDE 32 mmol/L (22-30); CHLORIDE 96 mmol/L (98-107); GLUCOSE 114 mg/dL (75-110); POTASSIUM 4.9 mmol/L (3.6-5.0); TOTAL PROTEIN 7.3 g/dL (6.3-8.2)
--- NOTE | 2020-04-13 15:47 | RADIOLOGY REPORT (SQ) ---
EXAM DESCRIPTION: CHEST SINGLE VIEW IMAGES COMPLETED DATE/TIME: 04/13/2020 3:16 pm REASON FOR STUDY: shortness of breath COMPARISON: 12/26/2018 FINDINGS: One view chest AP portable upright. Minimal streaky presumed subsegmental atelectasis in the left upper lobe. Lungs otherwise clear. No pneumothorax or significant pleural fluid. Osteopenic. TECHNICAL DOCUMENTATION: JOB ID: [id number] Reading location - IP/workstation name: [email or web address]
--- NOTE | 2020-04-13 18:10 | ER Document Report ---
Doctor's Note Notes: 04/13/20 18:09 I went to evaluate this patient. I reviewed her lab work, imaging. I was called into another room for another evaluation. I was notified but upon leaving this room that this patient left. She stated she would follow-up with her primary care provider tomorrow. Nursing did try to convince the patient to stay for evaluation. I did not see, interview, nor examined this patient.
--- NOTE | 2020-04-13 20:26 | EKG REPORT ---
SEVERITY:- NORMAL ECG - SINUS RHYTHM : Confirmed by: Dominique Stevens 13-Apr-2020 20:24:56
== END 2020-04-13 18:04 | disposition left against medical advice (07) ==
LOC: ER 13:22
DX: R49.0 Dysphonia (principal); J45.909 Unspecified asthma, uncomplicated; R06.02 Shortness of breath; R07.9 Chest pain, unspecified; R10.9 Unspecified abdominal pain; I10 Essential (primary) hypertension; Z87.01 Personal history of pneumonia (recurrent); Z87.892 Personal history of anaphylaxis; Z88.8 Allergy status to other drugs, medicaments and biological substances; Z88.0 Allergy status to penicillin; Z88.6 Allergy status to analgesic agent; Z88.5 Allergy status to narcotic agent; Z88.2 Allergy status to sulfonamides; Z53.20 Procedure and treatment not carried out because of patient's decision for unspecified reasons
CPT/HCPCS: 36415; 71045; 80053; 83690; 84484; 85025; 93005; 93010; 99281

== ENCOUNTER 2020-04-23 10:00 | Emergency (ER) | payer MEDICARE, MEDICAID ==
[2020-04-23] MEDS ORDERED: KETOROLAC TROMETHAMINE 60 MG/2 ML SDV IM ONE (10:46)
--- NOTE | 2020-04-23 11:45 | RADIOLOGY REPORT (SQ) ---
EXAM DESCRIPTION: CT ABD/PELVIS NO ORAL OR IV IMAGES COMPLETED DATE/TIME: 04/23/2020 11:24 am REASON FOR STUDY: rlq pain COMPARISON: CT of the abdomen and pelvis with contrast from 10/26/2019. TECHNIQUE: CT scan of the abdomen and pelvis performed without intravenous or oral contrast. Images reviewed with lung, soft tissue, and bone windows. Reconstructed coronal and sagittal MPR images revi ewed. All images stored on PACS. All CT scanners at this facility use dose modulation, iterative reconstruction, and/or weight based d osing when appropriate to reduce radiation dose to as low as reasonably achievable (ALARA). [facility]: Dose Right [facility]: CareDose [facility]: Dose Right [facility]: Teradose 4D [facility]: [employer] RADIATION DOSE: CT Rad equipment meets quality standard of care and radiation dose reduction techniq ues were employed. CTDIvol: 7.2 mGy. DLP: 403 mGy-cm. LIMITATIONS: None. FINDINGS: LOWER CHEST: No acute findings. NON-CONTRASTED LIVER, SPLEEN, ADRENALS: Evaluation is limited due to the absence of intravenous contr ast. There is no evidence hepatic steatosis. The punctate calcifications in the spleen likely repre sent calcified granulomas. There is no adrenal mass. PANCREAS: No acute gross abnormality of the pancreas. GALLBLADDER: No abnormality that is apparent on CT. RIGHT KIDNEY AND URETER: Evaluation is limited due to the absence of intravenous contrast. There is no hydronephrosis, nephrolithiasis, hydroureter or ureterolithiasis. LEFT KIDNEY AND URETER: Evaluation is limited due to the absence of intravenous contrast. There is n o hydronephrosis, nephrolithiasis, hydroureter or ureterolithiasis. AORTA AND RETROPERITONEUM: No aneurysm of the abdominal aorta. No retroperitoneal adenopathy, hemorr vanessa or mass. BOWEL AND PERITONEAL CAVITY: Hiatal hernia and colonic diverticulosis. There is no bowel obstruction , bowel wall thickening or pericolonic/ perienteric inflammation. There is no mesenteric adenopathy, free intracranial fluid mesenteric/omental inflammation. APPENDIX: Unable to identify the appendix. PELVIS, BLADDER, AND ABDOMINAL WALL:The uterus is surgically absent. There is no urinary bladder yesy culus. There is a ventral laparotomy is incision scar. BONES: Age-indeterminate compression deformity of the superior endplate of the T8 vertebral body that has developed in the interim (the baseline is the CT from 10/26/2019). OTHER: Surgical in the right lower quadrant. IMPRESSION: 1. Age-indeterminate compression deformity of the superior endplate of the T8 vertebral body (associated with less than 25% loss of the vertebral body height and no retropulsion) that has d eveloped in the interim (the baseline is the CT from 10/26/2019). If the patient is symptomatic consid er further evaluation with an MRI or bone scan to assess the acuity of the fracture. 2. Hiatal hernia and colonic diverticulosis. COMMENT: Quality ID # [id number]: Final reports with documentation of one or more dose reduction techniques (e.g., Automated exposure control, adjustment of the mA and/or kV according to patient size, use of iterative reconstruction technique) TECHNICAL DOCUMENTATION: JOB ID: [id number] 2010 [employer]- All Rights Reserved Reading location - IP/workstation name: [email or web address]
[2020-04-23 11:54] LABS: HEMATOCRIT 43.1 % (36.0-47.0); HEMOGLOBIN 14.8 g/dL (12.0-15.5); MEAN CORPUSCULAR HEMOGLOBIN 34.8 pg (27.0-33.4); MEAN CORPUSCULAR HGB CONC 34.3 g/dL (32.0-36.0); MEAN CORPUSCULAR VOLUME 102 fl (80-97); PLATELET COUNT 367 10^3/uL (150-450); RED BLOOD COUNT 4.25 10^6/uL (3.72-5.28); RED CELL DISTRIBUTION WIDTH 14.1 % (11.5-14.0); WHITE BLOOD COUNT 12.5 10^3/uL (4.0-10.5)
--- NOTE | 2020-04-23 11:55 | RADIOLOGY REPORT (SQ) ---
EXAM DESCRIPTION: CHEST SINGLE VIEW IMAGES COMPLETED DATE/TIME: 04/23/2020 11:43 am REASON FOR STUDY: bialt cp COMPARISON: AP view of the chest from 04/13/2020. EXAM PARAMETERS: NUMBER OF VIEWS: One view. TECHNIQUE: An AP view of the chest was obtained. RADIATION DOSE: NA LIMITATIONS: None. FINDINGS: LUNGS AND PLEURA: No consolidation, pleural effusion or pneumothorax. MEDIASTINUM AND HILAR STRUCTURES: No mediastinal or hilar contour abnormality. HEART AND VASCULAR STRUCTURES: The cardiac silhouette and pulmonary vasculature are within normal heck its. BONES: No acute findings. HARDWARE: None in the chest. OTHER: No other finding. IMPRESSION: No acute cardiopulmonary process. TECHNICAL DOCUMENTATION: JOB ID: [id number] 2010 [employer]- All Rights Reserved Reading location - IP/workstation name: [email or web address]
--- NOTE | 2020-04-23 11:57 | RADIOLOGY REPORT (SQ) ---
EXAM DESCRIPTION: L SPINE 2 VIEWS IMAGES COMPLETED DATE/TIME: 04/23/2020 11:43 am REASON FOR STUDY: lumbar pain COMPARISON: None. NUMBER OF VIEWS: Three views. TECHNIQUE: AP, lateral, and L5-S1 spot views of the lumbosacral spine were obtained. LIMITATIONS: None. FINDINGS: MINERALIZATION: Osteopenia. SEGMENTATION: There are 5 lumbar-type vertebral bodies. There is no transitional segment at the lumb osacral junction. ALIGNMENT: There is straightening of the normal lordotic curvature of the lumbar spine. There is no spondylolisthesis or scoliotic curvature. VERTEBRAE: The lumbar vertebral body heights are preserved. There is no fracture. DISCS: The intervertebral disc spaces throughout the lumbar spine are narrowed and there is associate d endplate sclerosis and osteophyte formation. POSTERIOR ELEMENTS: Hypertrophy of the facet joints. HARDWARE: Surgical clips that project within the right lower quadrant. PARASPINAL SOFT TISSUES: Normal. PELVIS: Intact. OTHER: No other finding. IMPRESSION: No acute fracture or malalignment of the lumbar spine. TECHNICAL DOCUMENTATION: JOB ID: [id number] 2010 [employer]- All Rights Reserved Reading location - IP/workstation name: [email or web address]
--- NOTE | 2020-04-23 11:59 | RADIOLOGY REPORT (SQ) ---
EXAM DESCRIPTION: T SPINE AP/LAT IMAGES COMPLETED DATE/TIME: 04/23/2020 11:43 am REASON FOR STUDY: thor pain COMPARISON: None. NUMBER OF VIEWS: Two views. TECHNIQUE: AP and lateral radiographic images acquired of the thoracic spine. LIMITATIONS: None. FINDINGS: MINERALIZATION: Osteopenia. ALIGNMENT: No scoliotic curvature or spondylolisthesis. VERTEBRAE: Refer to the separate report of the CT of the abdomen and pelvis. DISCS: The intervertebral disc spaces are preserved. HARDWARE: None in the spine. MEDIASTINUM AND SOFT TISSUES: No abnormality. VISUALIZED LUNG LASSITER: Clear. OTHER: No other finding. IMPRESSION: As detailed on the CT of the abdomen and pelvis report there is an age-indeterminate com pression deformity of the superior endplate of the T8 vertebral body associated with less than 25% lo ss of the vertebral body height and no retropulsion. The abnormality has developed in the interim (t he baseline is the CT from 10/26/2019). TECHNICAL DOCUMENTATION: JOB ID: [id number] 2010 [employer]- All Rights Reserved Reading location - IP/workstation name: [email or web address]
[2020-04-23 12:12] LABS: ANION GAP 7 (5-19); BLOOD UREA NITROGEN 37 mg/dL (7-20); CARBON DIOXIDE 26 mmol/L (22-30); CHLORIDE 101 mmol/L (98-107); GLUCOSE 97 mg/dL (75-110); POTASSIUM 4.9 mmol/L (3.6-5.0)
--- NOTE | 2020-04-23 12:13 | ER Document Report ---
ED Fall - General Chief Complaint: Fall Stated Complaint: BACK PAIN Time Seen by Provider: 04/23/20 10:34 Primary Care Provider: ARACELI CORTEZ MD [Primary Care Provider] - Follow up as needed Mode of Arrival: Medic Information source: Patient TRAVEL OUTSIDE OF THE [place] IN LAST 30 DAYS: No - HPI Notes: Patient states she was walking out of her house to get into community transportation van to take her to her doctor's visit. As she was doing that she had a fall. She states that the grievance and appeals specialist witnessed the fall and called an ambulance. She states in the fall she suffered abrasions to both upper extremities and has back pain. She states she has chronic back pain from degenerative disc disease and it was exacerbated by the fall. She also states that she has tried to urinate both yesterday and today has been unable to do so. She is unable to tell me why she has not been able to urinate. She does not complain of any decreased sensation or problems with stool. Patient denies any loss of consciousness. No chest pain. She states she has been having some chronic right lower quadrant abdominal pain for several days. She states she was been told this is diverticulitis but she is not currently on any antib iotics. She describes the back pain is constant. Severe. Worse with movement. Radiates up and down her spine. It is sharp. - Related data Allergies/Adverse Reactions: aspirin Allergy (Severe, Verified 03/10/20 15:33) Anaphylaxis Penicillins Allergy (Severe, Verified 03/10/20 15:33) Anaphylaxis hydrocodone [From Vicodin] Allergy (Intermediate, Verified 03/10/20 15:33) Anaphylaxis Sulfa (Sulfonamide Antibiotics) Allergy (Intermediate, Verified 03/10/20 15:33) iching, nausea codeine Allergy (Mild, Verified 03/10/20 15:33) Diarrhea meperidine HCl [From Demerol] Allergy (Mild, Verified 03/10/20 15:33) heart palpitations ciprofloxacin Adverse Reaction (Verified 03/10/20 15:33) NAUSEA, ITCHING Past Medical History - General Information source: Patient - Social History Smoking Status: Never Smoker Frequency of alcohol use: None Drug Abuse: None Family History: Reviewed & Not Pertinent, Arthritis, CAD, CVA, DM, Hyperlipidemia, Hypertension, Malignancy, Thyroid Disfunction Patient has homicidal ideation: No - Past Medical History Cardiac Medical History: Reports: Hx Hypertension Denies: Hx Congestive Heart Failure, Hx Heart Attack Pulmonary Medical History: Reports: Hx Asthma, Hx Bronchitis, Hx Pneumonia Denies: Hx COPD, Hx Tuberculosis Neurological Medical History: Denies: Hx Seizures, Hx Parkinson's Disease Renal/ Medical History: Denies: Hx End Stage Renal Disease, Hx Peritoneal Dialysis GI Medical History: Reports: Hx Crohn's Disease, Hx Diverticulitis, Hx Gastroesophageal Reflux Disease, Hx Hiatal Hernia, Hx Irritable Bowel. Denies: Hx Cirrhosis, Hx Hepatitis Musculoskeletal Medical History: Reports Hx Arthritis, Reports Hx Musculoskeletal Deformity, Reports Hx Musculoskeletal Trauma Psychiatric Medical History: Reports: Hx Anxiety, Hx Depression Denies: Hx Bipolar Disorder Infectious Medical History: Denies: Hx Hepatitis Past Surgical History: Reports: Hx Abdominal Surgery - small intestine removal, Hx Appendectomy, Hx Bowel Surgery - small intestine, Hx Breast Surgery - biopsy, Hx Hysterectomy, Hx Neurologic Surgery - brain tumor removed, Hx Tonsillectomy. Denies: Hx Mastectomy, Hx Pacemaker - Immunizations Immunizations up to date: Yes Hx Diphtheria, Pertussis, Tetanus Vaccination: Yes - 09/2010 Hx Pneumococcal Vaccination: 08/24/10 Review of Systems - Review of Systems Constitutional: Malaise, Weakness Cardiovascular: denies: Chest pain, Palpitations Respiratory: denies: Cough, Short of breath -: Yes All other systems reviewed and negative Physical Exam - Vital signs Vitals: Temp 99.3 F 04/23/20 10:13 Interpretation: Normal - General General appearance: Appears well, Alert - HEENT Head: Normocephalic, Atraumatic Eyes: Normal Pupils: PERRL - Respiratory Respiratory status: No respiratory distress Chest status: Nontender Breath sounds: Normal Chest palpation: Normal - Cardiovascular Rhythm: Regular Heart sounds: Normal auscultation Murmur: No - Abdominal Inspection: Normal Distension: No distension Bowel sounds: Normal Tenderness: Tender - Patient has some mild tenderness palpation of the right lower quadrant. No rebound or guarding. Organomegaly: No organomegaly - Back Back: Tender - Patient has diffuse tenderness of the T-spine and L-spine. No step-offs deformities. - Extremities General upper extremity: Normal ROM, Normal temperature, Other - Both upper extremities have tender abrasions just superior to the elbow on the dorsal aspect. General lower extremity: Edema - 2+ bilateral pretibial, Normal temperature. No: Guille's sign - Neurological Neuro grossly intact: Yes Cognition: Normal Orientation: AAOx4 [place] Coma Scale Eye Opening: Spontaneous Ji Coma Scale Verbal: Oriented Ji Coma Scale Motor: Obeys Commands Ji Coma Scale Total: 15 Speech: Normal Sensory: Normal - Psychological Associated symptoms: Normal affect, Normal mood - Skin Skin Temperature: Warm Skin Moisture: Dry Course - Re-evaluation Re-evalutation: 04/23/20 12:13 Patient's imaging was all reviewed. It is remarkable for a T8 compression fracture. On CT scan they are unable to say how acute this fracture is so an MRI was recommended. Given the fact the patient is complaining of urinary urinary retention as well as severe low back pain and some weakness in the bilateral lower extremities an MRI will be obtained to further help define the age and extent of the fracture MRI shows the patient to have T7 and T8 endplate fractures. They are less than 25% of the body height. There is no retropulsion. I have discussed the case with the orthopedist, Dr. King. 04/23/20 15:22 04/23/20 16:15 MRI shows subacute fractures with no retropulsion as above. Dr. King states patient does not require any type of brace. He states he will see the patient in the office. - Vital Signs Vital signs: Temp Pulse Resp BP Pulse Ox 98.9 F 84 15 148/72 H 100 04/23/20 15:09 04/23/20 15:09 04/23/20 15:09 04/23/20 15:09 04/23/20 15:09 - Laboratory Result Diagrams: 04/23/20 11:34 04/23/20 11:34 Laboratory results interpreted by me: 04/23/20 04/23/20 11:34 11:34 WBC 12.5 H MCV 102 H MCH 34.8 H RDW 14.1 H Seg Neuts % (Manual) 85 H Band Neutrophils % 6 H Lymphocytes % (Manual) 3 L Abs Neuts (Manual) 11.4 H Abs Lymphs (Manual) 0.4 L Sodium 133.5 L BUN 37 H - Diagnostic Test Radiology reviewed: Image reviewed, Reports reviewed Discharge - Discharge Clinical Impression: Thoracic spine fracture Qualifiers: Encounter type: initial encounter Thoracic vertebra fracture level: T7 Fracture type: closed Fracture morphology: wedge compression Qualified Code(s): S22.060A - Wedge compression fracture of T7-T8 vertebra, initial encounter for closed fracture Thoracic compression fracture Qualifiers: Encounter type: initial encounter Thoracic vertebra fracture level: T8 Qualified Code(s): S22.060A - Wedge compression fracture of T7-T8 vertebra, initial encounter for closed fracture Condition: Stable Disposition: HOME, SELF-CARE Instructions: Compression Fracture of the Spine ([facility]) Additional Instructions: Go to Dr. Nelson tomorrow as scheduled. Call Dr. King in am to schedule appointment Prescriptions: Acetaminophen with Codeine [Tylenol with Codeine #3 Tablet] 1 each PO Q6 PRN 3 Days #12 tablet PRN Reason: For Pain Referrals: ARACELI CORTEZ MD [Primary Care Provider] - Follow up tomorrow JOSE ALFREDO KING JR, DO [ACTIVE PROVISIONAL STAFF] - Follow up in 1 week
[2020-04-23 12:22] LABS: ABSOLUTE LYMPHOCYTES# (MANUAL) 0.4 10^3/uL (0.5-4.7); ABSOLUTE MONOCYTES # (MANUAL) 0.8 10^3/uL (0.1-1.4); BAND NEUTROPHILS % (MANUAL) 6 % (3-5); BASOPHILS % (MANUAL) 0 % (0-2); EOSINOPHILS % (MANUAL) 0 % (0-6); LYMPHOCYTES % (MANUAL) 3 % (13-45); MONOCYTES % (MANUAL) 6 % (3-13); SEGMENTED NEUTROPHILS % (MAN) 85 % (42-78); TOTAL CELLS COUNTED 100
[2020-04-23 12:24] LABS: ANISOCYTOSIS SLIGHT; OVALOCYTES SLIGHT; PLATELET CLUMPS PRESENT; PLATELET COMMENT ADEQUATE
[2020-04-23] MEDS ORDERED: MORPHINE SULFATE 10 MG/ML INJ IM ONE ×2 (13:35→16:15)
[2020-04-23] MEDS: MORPHINE SULFATE 10 MG/ML INJ IV ONE ×2 (13:36→13:39)
--- NOTE | 2020-04-23 14:48 | RADIOLOGY REPORT (SQ) ---
EXAM DESCRIPTION: MRI THORACIC SPINE WITHOUT IMAGES COMPLETED DATE/TIME: 04/23/2020 2:23 pm REASON FOR STUDY: back pain/T8 fx COMPARISON: CT of the abdomen and pelvis without contrast from 04/23/2020. TECHNIQUE: Sagittal and Axial imaging includes T1, T2, STIR and gradient echo sequences. LIMITATIONS: None. FINDINGS: LOCALIZER: No abnormal findings. ALIGNMENT: No spondylolisthesis or scoliotic curvature. VERTEBRAE: Compression deformities of the inferior endplate of T7 and superior endplate of T8 associa lukas with less than 25% loss of the vertebral body height and increased signal on the STIR sequence ; there is no retropulsion. BONE MARROW: As above. HARDWARE: None in the spine. CORD: The cord is normal in caliber and signal intensity. SOFT TISSUES: No soft tissue masses. THORACIC DISCS T1-T12: Bridging anterolateral osteophytes from T6-T10. There is no spinal or foramin al stenosis. LOWER CERVICAL: No stenosis. UPPER LUMBAR: No stenosis. OTHER: No other finding. IMPRESSION: Acute to subacute compression fractures of the inferior endplate of T7 and superior endp late of T8 associated with less than 25% loss of the vertebral body height and no retropulsion. TECHNICAL DOCUMENTATION: JOB ID: [id number] 2010 [employer]- All Rights Reserved Reading location - IP/workstation name: [email or web address]
[2020-04-23 15:25] VITALS: BP 148/72
== END 2020-04-23 16:50 | disposition home or self-care (01) ==
LOC: ER 10:00
DX: S22.060A Wedge compression fracture of T7-T8 vertebra, initial encounter for closed fracture (principal); S40.812A Abrasion of left upper arm, initial encounter; S40.811A Abrasion of right upper arm, initial encounter; M54.9 Dorsalgia, unspecified; G89.29 Other chronic pain; R53.81 Other malaise; R53.1 Weakness; W19.XXXA Unspecified fall, initial encounter; Z88.0 Allergy status to penicillin; Z88.2 Allergy status to sulfonamides; Z88.8 Allergy status to other drugs, medicaments and biological substances; I10 Essential (primary) hypertension; J45.909 Unspecified asthma, uncomplicated
CPT/HCPCS: 99285; 96372; 36415; 85025; 80048; 72146; 71045; 72100; 72070; 74176; J1885; J2270

== ENCOUNTER 2020-04-27 18:01 | Inpatient (IN) | payer MEDICARE, MEDICAID ==
--- NOTE | 2020-04-27 21:30 | ER Document Report ---
ED General - General Chief Complaint: Back Pain Stated Complaint: LOWER BACK PAIN Time Seen by Provider: 04/27/20 18:29 Primary Care Provider: ARACELI CORTEZ MD [Primary Care Provider] - Follow up as needed TRAVEL OUTSIDE OF THE [place] IN LAST 30 DAYS: No - HPI Notes: 69-year-old female presents with back pain. Patient states that she has had back pain since April 11. She states that she has 2 broken disks along with 2 bulging disks. She reports she is chronic pain and takes home medication. She states that her primary care doctor will give her morphine and Dilaudid. Morphine is for pain and Dilaudid is for sleep. She is requesting these medications now. She states that since April 11 when she first fell, she has been fairly bedbound. She tries to walk, however usually needs to walk on her knees. She denies numbness or tingling in her legs. She denies any recent injury. She has been getting cortisone shots, she has been told that she will need surgery in [place], there is a plan to admit her there and then she will go to rehab and then receive home therapy. She states that her legs are swelling, this is been chronic since March as well. She additionally reports chronic diverticulitis, she states she has diarrhea for the past 5 weeks. She is on Levaquin and Flagyl. She denies abdominal pain currently. States her mouth is dry and she feels dehydrated. She additionally reports acid reflux, she is requesting a GI cocktail. Patient additionally mentions that she has called the [employer] rescue squad and have alerted them that she will need transport home. She states she is also contacted her public transportation inspector and has arranged transport to her PCPs office in the morning. - Related Data Allergies/Adverse Reactions: aspirin Allergy (Severe, Verified 03/10/20 15:33) Anaphylaxis Penicillins Allergy (Severe, Verified 03/10/20 15:33) Anaphylaxis hydrocodone [From Vicodin] Allergy (Intermediate, Verified 03/10/20 15:33) Anaphylaxis Sulfa (Sulfonamide Antibiotics) Allergy (Intermediate, Verified 03/10/20 15:33) iching, nausea codeine Allergy (Mild, Verified 03/10/20 15:33) Diarrhea meperidine HCl [From Demerol] Allergy (Mild, Verified 03/10/20 15:33) heart palpitations ciprofloxacin Adverse Reaction (Verified 03/10/20 15:33) NAUSEA, ITCHING Past Medical History - General Information source: Patient - Social History Smoking Status: Unknown if Ever Smoked Family History: Reviewed & Not Pertinent, Arthritis, CAD, CVA, DM, Hyperlipi demia, Hypertension, Malignancy, Thyroid Disfunction - Past Medical History Cardiac Medical History: Reports: Hx Hypertension Denies: Hx Congestive Heart Failure, Hx Heart Attack Pulmonary Medical History: Reports: Hx Asthma, Hx Bronchitis, Hx Pneumonia Denies: Hx COPD, Hx Tuberculosis Neurological Medical History: Denies: Hx Seizures, Hx Parkinson's Disease Renal/ Medical History: Denies: Hx End Stage Renal Disease, Hx Peritoneal Dialysis GI Medical History: Reports: Hx Crohn's Disease, Hx Diverticulitis, Hx Gastroesophageal Reflux Disease, Hx Hiatal Hernia, Hx Irritable Bowel. Denies: Hx Cirrhosis, Hx Hepatitis Musculoskeletal Medical History: Reports Hx Arthritis, Reports Hx Musculoskeletal Deformity, Reports Hx Musculoskeletal Trauma Psychiatric Medical History: Reports: Hx Anxiety, Hx Depression Denies: Hx Bipolar Disorder Infectious Medical History: Denies: Hx Hepatitis Past Surgical History: Reports: Hx Abdominal Surgery - small intestine removal, Hx Appendectomy, Hx Bowel Surgery - small intestine, Hx Breast Surgery - biopsy, Hx Hysterectomy, Hx Neurologic Surgery - brain tumor removed, Hx Tonsillectomy. Denies: Hx Mastectomy, Hx Pacemaker - Immunizations Immunizations up to date: Yes Hx Diphtheria, Pertussis, Tetanus Vaccination: Yes - 09/2010 Hx Pneumococcal Vaccination: 08/24/10 Review of Systems - Review of Systems Constitutional: denies: Chills, Fever EENT: No symptoms reported Cardiovascular: denies: Chest pain Respiratory: denies: Short of breath Gastrointestinal: Diarrhea. denies: Abdominal pain, Blood streaked bowels Genitourinary: denies: Dysuria Female Genitourinary: No symptoms reported Musculoskeletal: Back pain, Leg swelling Skin: Other - Bruising Neurological/Psychological: denies: Weakness, Numbness Physical Exam - Vital signs Vitals: Temp 98.6 F 04/27/20 18:43 - General General appearance: Appears well In distress: None - HEENT Head: Normocephalic, Other - Area of ecchymosis to left cheek, subacute appearing Extraocular movements intact: Yes Pupils: PERRL - Respiratory Chest status: Nontender Breath sounds: Normal. No: Rales - Cardiovascular Rhythm: Regular Heart sounds: Normal auscultation Normal capillary refill: Yes - Abdominal Inspection: Healed incision, Obese Distension: No distension Bowel sounds: Normal Tenderness: Nontender - Back Back: Tender - Generalized back tenderness bilaterally, do not appreciate midline tenderness - Extremities General upper extremity: Normal ROM General lower extremity: Edema, Normal ROM Notes: Patient able to lift legs off the bed and flex at knees bilaterally. She is able to somewhat pull herself out of bed with her upper extremities - Neurological Neuro grossly intact: Yes Cognition: Normal Orientation: AAOx4 Notes: Strength is symmetric between upper extremities. Strength is symmetric between lower extremities. She is able to push against resistance with her lower extremities. Sensation is intact to all extremities. No saddle anesthesia. - Skin Skin Temperature: Warm Course - Re-evaluation Re-evalutation: 04/27/20 22:08 69-year-old female here with back pain and leg swelling. Patient reports c hronic back pain since March where she had a fall. I reviewed her recent ED admission from 04/23, she had an MRI thoracic spine which showed T7/8 25% compression fractures, acute for subacute. Her lumbar x-ray was negative for fracture. She is grossly neurologically intact. She did not have any midline thoracic spine tenderness. Will obtain x-ray to assure that there is no overt progression of her fracture. Suspecting exacerbation of chronic pain. Have ordered morphine to start with pain control. Her abdomen is soft and overall non-peritoneal. Will check belly labs. Give GI cocktail per her request. She does exhibit edema to her lower extremities, generalized pitting, no overt rales and no oxygen requirement. Concern for CHF exacerbation, possibly secondary to medication noncompliant. Could be dependent edema given her immobility. Will order ultrasound to evaluate for DVTs. 04/27/20 23:10 Per film technician patient is "unofficially negative" for DVT. Awaiting final read. 04/27/20 23:31 Thoracic x-rays reviewed, per radiology compression fractures at T7/8 appears similar to previous exam. 04/28/20 01:10 BNP slightly elevated, given her generalized lower extremity edema will cover with Lasix IV. Additionally the tractor trailer truck driver of the transportation bus is at bedside. She states that the patient calls her frequently to come in and check on her, sometimes up to 3 times a day. Reports that patient rarely gets up off the couch and is concerned that she cannot care for herself, reports she is remarkably swollen. 04/28/20 02:04 Given concern for fluid overload secondary to diastolic heart failure, patient was admitted to the hospital for further diuresis and management. - Vital Signs Vital signs: Temp Pulse Resp BP Pulse Ox 98.6 F 04/27/20 18:43 - Laboratory Result Diagrams: 04/27/20 23:20 04/27/20 23:20 Laboratory results interpreted by me: 04/27/20 04/27/20 04/27/20 23:20 23:20 23:20 WBC 11.0 H RBC 3.69 L MCV 100 H MCH 35.0 H Seg Neuts % (Manual) 79 H Lymphocytes % (Manual) 10 L Myelocytes % 2 H Abs Neuts (Manual) 9.5 H BUN 35 H Glucose 127 H Calcium 8.3 L Alkaline Phosphatase 127 H NT-Pro-B Natriuret Pep 926 H Total Protein 5.2 L Albumin 2.9 L - Diagnostic Test Radiology reviewed: Image reviewed, Reports reviewed Discharge - Discharge Clinical Impression: CHF exacerbation Qualifiers: Heart failure type: diastolic Qualified Code(s): I50.33 - Acute on chronic diastolic (congestive) heart failure Disposition: ADMITTED INPATIENT Admitting Provider: David Unit Admitted: IMCU Referrals: ARACELI CORTEZ MD [Primary Care Provider] - Follow up as needed
[2020-04-27] MEDS ORDERED: MORPHINE SULFATE 10 MG/ML INJ IV ONE (21:57)
[2020-04-27] MEDS ORDERED: MAG HYDROX/AL HYDROX/SIMETH SUSP 30 ML UDCUP PO ONE (22:00)
[2020-04-27] MEDS ORDERED: LIDOCAINE 2% VISCOUS SOLN 15 ML UDCUP PO ONE (22:00)
--- NOTE | 2020-04-27 23:14 | RADIOLOGY REPORT (SQ) ---
EXAM DESCRIPTION: CLINICAL HISTORY: 69 years ,Female t7/8 compression fracture f/u COMPARISON: 04/23/2020 MRI and plain films. TECHNIQUE: Two views FINDINGS: Vertebral body alignment is unremarkable. fractures at T7 and T8 are again noted and appears similar to the previous examination. They are significantly better visualized on the MRI than on plain film. IMPRESSION: Compression fractures at T7 and T8 which appears similar to the previous exam. These are less well visualized on plain films than on the MRI examination.
[2020-04-27 23:59] LABS: ALBUMIN 2.9 g/dL (3.5-5.0); ALKALINE PHOSPHATASE 127 U/L (38-126); ANION GAP 5 (5-19); ASPARTATE AMINO TRANSFERASE 20 U/L (14-36); BILIRUBIN,DIRECT 0.2 mg/dL (0.0-0.4); BILIRUBIN,TOTAL 0.4 mg/dL (0.2-1.3); BLOOD UREA NITROGEN 35 mg/dL (7-20); CALCIUM 8.3 mg/dL (8.4-10.2); CARBON DIOXIDE 28 mmol/L (22-30); CHLORIDE 107 mmol/L (98-107); GLUCOSE 127 mg/dL (75-110); POTASSIUM 3.7 mmol/L (3.6-5.0); TOTAL PROTEIN 5.2 g/dL (6.3-8.2)
[2020-04-28 00:15] LABS: HEMATOCRIT 37.1 % (36.0-47.0); HEMOGLOBIN 12.9 g/dL (12.0-15.5); MEAN CORPUSCULAR HGB CONC 34.9 g/dL (32.0-36.0); MEAN CORPUSCULAR VOLUME 100 fl (80-97); PLATELET COUNT 305 10^3/uL (150-450); RED BLOOD COUNT 3.69 10^6/uL (3.72-5.28); RED CELL DISTRIBUTION WIDTH 13.2 % (11.5-14.0)
[2020-04-28 00:22] LABS: ABSOLUTE LYMPHOCYTES# (MANUAL) 1.1 10^3/uL (0.5-4.7); ABSOLUTE MONOCYTES # (MANUAL) 0.4 10^3/uL (0.1-1.4); BAND NEUTROPHILS % (MANUAL) 5 % (3-5); BASOPHILS % (MANUAL) 0 % (0-2); EOSINOPHILS % (MANUAL) 0 % (0-6); LYMPHOCYTES % (MANUAL) 10 % (13-45); MONOCYTES % (MANUAL) 4 % (3-13); SEGMENTED NEUTROPHILS % (MAN) 79 % (42-78); TOTAL CELLS COUNTED 100
[2020-04-28 00:24] LABS: PLATELET COMMENT ADEQUATE; TEAR DROP CELLS SLIGHT
[2020-04-28 00:26] LABS: MYELOCYTES % (MANUAL) 2 % (0)
[2020-04-28] MEDS ORDERED: FUROSEMIDE INJ/PF 20 MG/2 ML SDV IV ONE ×2 (01:09→05:00)
[2020-04-28 03:09] LABS: APPEARANCE,URINE CLEAR; BILIRUBIN,URINE NEGATIVE (NEGATIVE); COLOR,URINE YELLOW; GLUCOSE, URINE NEGATIVE (NEGATIVE); KETONES,URINE NEGATIVE (NEGATIVE); LEUKOCYTE ESTERASE,URINE SMALL (NEGATIVE); NITRITE,URINE NEGATIVE (NEGATIVE); PROTEIN,URINE NEGATIVE (NEGATIVE); UROBILINOGEN,URINE NEGATIVE mg/dL (<2.0)
[2020-04-28] MEDS ORDERED: AMLODIPINE BESYLATE 5 MG TABLET PO SCH (05:00)
[2020-04-28] MEDS: PANTOPRAZOLE SODIUM 40 MG TABLET.DR PO SCH (06:28)
[2020-04-28] MEDS: ENOXAPARIN SODIUM INJ 40 MG/0.4 ML DISP.SYRIN SUBCUT SCH (09:31)
--- NOTE | 2020-04-28 11:54 | RADIOLOGY REPORT (SQ) ---
EXAM DESCRIPTION: VENOUS BILATERAL LOWER IMAGES COMPLETED DATE/TIME: 04/28/2020 11:29 am REASON FOR STUDY: b/l leg swelling, eval DVT COMPARISON: None. TECHNIQUE: Dynamic and static burdick scale and color images acquired of both lower extremity venous sy stems. Selected spectral images acquired with additional compression and augmentation maneuvers. Imag es stored on PACS. LIMITATIONS: None. FINDINGS: RIGHT LEG COMMON FEMORAL AND FEMORAL: Normal phasicity, compression and augmentation. No visualized echogenic m aterial on burdick scale. No defects on color images. POPLITEAL: Normal compression and augmentation. No visualized echogenic material on burdick scale. No de fects on color images. CALF VESSELS: The peroneal vein is not visualized. Normal compression and augmentation. No visualize d echogenic material on burdick scale. No defects on color image. GSV AND SSV: Normal compression. No visualized echogenic material on burdick scale. No defects on color images. ANY DEEP VENOUS INSUFFICIENCY: Not evaluated. ANY EVIDENCE OF POPLITEAL CYST: No. OTHER: No other significant finding. LEFT LEG COMMON FEMORAL AND FEMORAL: Normal phasicity, compression and augmentation. No visualized echogenic m aterial on burdick scale. No defects on color images. POPLITEAL: Normal compression and augmentation. No visualized echogenic material on burdick scale. No de fects on color images. CALF VESSELS: Normal compression and augmentation. No visualized echogenic material on burdick scale. No defects on color images. GSV AND SSV: Normal compression. No visualized echogenic material on burdick scale. No defects on color images. ANY DEEP VENOUS INSUFFICIENCY: Not evaluated. ANY EVIDENCE POPLITEAL CYST: No. OTHER: No other significant finding. IMPRESSION: Nonvisualization of the right peroneal vein limits examination. No demonstrated DVT or SVT in either lower extremity. TECHNICAL DOCUMENTATION: JOB ID: [id number] 2010 [employer]- All Rights Reserved Reading location - IP/workstation name: [email or web address]
[2020-04-28] MEDS ORDERED: (PENDING PHARMACY ID) (Albuterol Sulfate 2 PUFF) IH PRN (12:52)
--- NOTE | 2020-04-28 12:52 | PDOC H&P ---
History of Present Illness Admission Date/PCP: 04/28/20 02:29 ARACELI CORTEZ MD Patient complains of: Back pain, Recurrent falls at home History of Present Illness: MICHAEL CAMEJO is a 69 year old female patient of Dr. Cortez who presented to the ED with complain about back pain since April 11, 2020. Patient is a poor historian with some degree of demonstrable mental limitation. Patient reported ongoing back pain since her initial fall on April 11, 2020 with increasing difficulty with ambulation. She claimed to be bed bound status thereafter and transfer by crawling due to worsening pain in her back with walking. She reported recurrent falls at home and diagnosis of disc disease with treatment with steroid injection in the past. Patient claimed that surgical intervention has been suggested for her back problem. She denied numbness or tingling in her legs. She denies any recurrent recent injury or trauma. Patient reported limited oral intake due to her bed bound status and diarrhea that have led to her development of dehydration. She claimed diarrhea over last 5 weeks, history of chronic diverticulitis and currently on Levofloxacin and Flagyl therapy. She noted worsening swelling in her legs since her bed bound status. Her initial ED evaluation was significant for borderline elevated NT-Pro BNP level, leukocytosis with left shift, elevated BUN with hyperglycemia, abnormal urinalysis, compression fracture at T7 and T8, and lower extremities venous doppler that was negative for DVT or SVT. Her morbidities are as listed below. Due to concern for possible fluid overload, CHF, and back pain with ambulatory limitation she was advised hospitalization for further evaluation and management. Past Medical History Cardiac Medical History: Reports: Hypertension Denies: Congestive Heart Failure, Myocardial Infarction Pulmonary Medical History: Reports: Asthma, Bronchitis, Pneumonia Denies: Chronic Obstructive Pulmonary Disease (COPD), Tuberculosis Neurological Medical History: Denies: Seizures Renal/ Medical History: Denies: End Stage Renal Disease GI Medical History: Reports: Crohn's Disease, Diverticulitis, Gastroesophageal Reflux Disease, Hiatal Hernia Denies: Cirrhosis, Hepatitis Musculoskeltal Medical History: Reports: Arthritis Psychiatric Medical History: Reports: Depression Denies: Bipolar Disorder Hematology: Reports: Anemia Past Surgical History Past Surgical History: Reports: Appendectomy, Hysterectomy, Tonsillectomy Denies: Mastectomy, Pacemaker Social History Smoking Status: Never Smoker Frequency of Alcohol Use: None Hx Recreational Drug Use: No Drugs: None Hx Prescription Drug Abuse: No - Advance Directive Resuscitation Status: Full Code Family History Family History: Reviewed & Not Pertinent, Arthritis, CAD, CVA, DM, H yperlipidemia, Hypertension, Malignancy, Thyroid Disfunction Parental Family History Reviewed: Yes Children Family History Reviewed: Yes Sibling(s) Family History Reviewed.: Yes Medication/Allergy Home Medications: Albuterol Sulfate [Proair HFA Inhalation Aerosol 8.5 gm MDI] 2 puff IH Q6HP PRN 12/26/18 Cyanocobalamin (Vitamin B-12) [Vitamin B-12 Inj 1000 Mcg/1 ml Vial] 1 ml IM M O@1000 12/26/18 Dexlansoprazole [Dexilant 60 mg Capsule] 60 mg PO DAILY 12/26/18 Diltiazem HCl [Cardizem Cd 120 mg Capsule] 120 mg PO DAILY 05/03/19 Bimatoprost [Lumigan 0.01% Oph Soln 2.5 ml/Bottle] 2 drop OU QHS 09/17/19 Iron Ps Complex/B12/Folic Acid [Ferrex 150 Forte Capsule] 1 cap PO QID 09/17/19 Triamcinolone Acetonide [Aristocort 0.5% Cream 15 gm] 1 applic TOP Q12 tube 09/19/19 Acetaminophen with Codeine [Tylenol with Codeine #3 Tablet] 1 each PO Q6HP PRN 04/28/20 Cyclobenzaprine HCl [Flexeril 10 mg Tablet] 10 mg PO Q8HP PRN 04/28/20 Dicyclomine HCl [Bentyl 20 mg Tablet] 20 mg PO Q6HP PRN 04/28/20 Furosemide [Lasix 20 mg Tablet] 20 mg PO DAILY 04/28/20 Lactulose [Enulose] 30 ml PO DAILY 04/28/20 Losartan/Hydrochlorothiazide [Hyzaar 100-12.5 Tablet] 1 tab PO DAILY 04/28/20 Meclizine HCl [Antivert 25 mg Tablet] 25 mg PO BID 04/28/20 Metoprolol Tartrate [Lopressor 50 mg Tablet] 50 mg PO Q12 04/28/20 Naproxen Sodium [Aleve] 220 mg PO ASDIR PRN 04/28/20 Prochlorperazine Maleate [Compazine 5 Mg Tablet] 5 mg PO TIDP PRN 04/28/20 Valacyclovir HCl [Valtrex 500 mg Tablet] 1,000 mg PO DAILY 04/28/20 Allergies/Adverse Reactions: aspirin Allergy (Severe, Verified 03/10/20 15:33) Anaphylaxis Penicillins Allergy (Severe, Verified 03/10/20 15:33) Anaphylaxis hydrocodone [From Vicodin] Allergy (Intermediate, Verified 03/10/20 15:33) Anaphylaxis Sulfa (Sulfonamide Antibiotics) Allergy (Intermediate, Verified 03/10/20 15:33) iching, nausea codeine Allergy (Mild, Verified 03/10/20 15:33) Diarrhea meperidine HCl [From Demerol] Allergy (Mild, Verified 03/10/20 15:33) heart palpitations ciprofloxacin Adverse Reaction (Verified 03/10/20 15:33) NAUSEA, ITCHING Review of Systems Constitutional: PRESENT: fatigue, weakness. ABSENT: chills, fever(s), headache(s) Eyes: ABSENT: visual disturbances Ears: ABSENT: hearing changes Nose, Mouth, and Throat: ABSENT: headache(s), sore throat, vertigo Cardiovascular: ABSENT: chest pain, dyspnea on exertion, edema, orthropnea, palpitations Respiratory: ABSENT: cough, hemoptysis Gastrointestinal: PRESENT: diarrhea. ABSENT: abdominal pain, constipation, hematemesis, hematochezia, nausea, vomiting Genitourinary: ABSENT: dysuria, hematuria Musculoskeletal: PRESENT: other - leg swelling. ABSENT: joint swelling Integumentary: PRESENT: wounds - multiple skin scraping from recurrent falls.. ABSENT: rash Neurological: ABSENT: abnormal gait, abnormal speech, confusion, dizziness, focal weakness, numbness, syncope, tingling Psychiatric: ABSENT: anxiety, depression, homidical ideation, suicidal ideation Endocrine: ABSENT: cold intolerance, heat intolerance, polydipsia, polyuria Hematologic/Lymphatic: ABSENT: easy bleeding, easy bruising, lymphadenopathy Allergic/Immunologic: ABSENT: seasonal rhinorrhea Physical Exam Vital Signs: Temp Pulse Resp BP Pulse Ox 98.9 F 97 18 179/85 H 100 04/28/20 07:56 04/28/20 07:56 04/28/20 07:56 04/28/20 09:18 04/28/20 07:56 Intake & Output 04/27/20 04/28/20 04/29/20 06:59 06:59 06:59 Intake Total 50 Balance 50 Weight 68.5 kg General appearance: PRESENT: no acute distress, mild distress - due to reported back pain and requesting for Tylenol #3 due to effectiveness in treating her pain while in the ED Head exam: PRESENT: atraumatic, normocephalic Eye exam: PRESENT: conjunctiva pink, EOMI, PERRLA. ABSENT: scleral icterus Ear exam: PRESENT: normal external ear exam Mouth exam: PRESENT: dry mucosa, tongue midline Teeth exam: PRESENT: poor dentation Neck exam: PRESENT: full ROM. ABSENT: carotid bruit, JVD, lymphadenopathy, thyromegaly Respiratory exam: PRESENT: clear to auscultation franky, decreased breath sounds - at lung bases Cardiovascular exam: PRESENT: RRR, +S1, +S2. ABSENT: diastolic murmur, rubs, systolic murmur Pulses: PRESENT: +1 pedal pulses bilateral Vascular exam: PRESENT: normal capillary refill. ABSENT: pallor GI/Abdominal exam: PRESENT: normal bowel sounds, soft. ABSENT: distended, guarding, mass, organolmegaly, rebound, tenderness Rectal exam: PRESENT: deferred Extremities exam: PRESENT: pedal edema - 2+ bilaterally to knee joint level Musculoskeletal exam: PRESENT: deformity - related to multiple joints involvement with arthritis Neurological exam: PRESENT: alert, awake, oriented to person, oriented to place, oriented to time, oriented to situation, CN II-XII grossly intact. ABSENT: motor sensory deficit Psychiatric exam: PRESENT: appropriate affect, normal mood. ABSENT: homicidal ideation, suicidal ideation Skin exam: PRESENT: dry, mottled - involving feet, left >> right, petechiae, warm. ABSENT: cyanosis, rash Results Laboratory Results: 04/27/20 23:20 04/27/20 23:20 04/27/20 04/27/20 04/28/20 23:20 23:20 02:40 WBC 11.0 H RBC 3.69 L Hgb 12.9 Hct 37.1 MCV 100 H MCH 35.0 H MCHC 34.9 RDW 13.2 Plt Count 305 Seg Neutrophils % Not Reportable Sodium 139.5 Potassium 3.7 Chloride 107 Carbon Dioxide 28 Anion Gap 5 BUN 35 H Creatinine 0.52 Est GFR ( Amer) > 60 Glucose 127 H Calcium 8.3 L Total Bilirubin 0.4 AST 20 Alkaline Phosphatase 127 H Total Protein 5.2 L Albumin 2.9 L Lipase 57.4 Urine Color YELLOW Urine Appearance CLEAR Urine pH 5.0 Ur Specific [place] 1.020 Urine Protein NEGATIVE Urine Glucose (UA) NEGATIVE Urine Ketones NEGATIVE Urine Blood SMALL H Urine Nitrite NEGATIVE Ur Leukocyte Esterase SMALL H Urine WBC (Auto) 2 Urine RBC (Auto) 0 04/27/20 04/28/20 23:20 02:15 Troponin I < 0.012 NT-Pro-B Natriuret Pep 926 H Impressions: Venous Doppler Study 04/27/20 21:55 IMPRESSION: Nonvisualization of the right peroneal vein limits examination. No demonstrated DVT or SVT in either lower extremity. Thoracic Spine X-Ray 04/27/20 21:57 IMPRESSION: Compression fractures at T7 and T8 which appears similar to the previous exam. These are less well visualized on plain films than on the MRI examination. Assessment & Plan - Diagnosis (1) Acute on chronic diastolic (congestive) heart failure Is this a current diagnosis for this admission?: Yes Plan: Based on her echocardiogram completed on 09/18/2019 findings, presentation with bilateral leg swelling and significantly elevated blood pressure and NT-Pro BNP level. See covering admitting attending physician orders for details about care plan. (2) Back pain, thoracic Qualifiers: Chronicity: acute Back pain laterality: unspecified Qualified Code(s): M54.6 - Pain in thoracic spine Is this a current diagnosis for this admission?: Yes Plan: Probably related to her thoracic compression fracture. See covering admitting attending physician orders for details about care plan. (3) Compression fracture of body of thoracic vertebra Is this a current diagnosis for this admission?: Yes Plan: She is at increase risk for other fragility fracture and osteoporosis. See covering admitting attending physician orders for details about care plan. (4) Recurrent falls while walking Is this a current diagnosis for this admission?: Yes Plan: See covering admitting attending physician orders for details about care plan. (5) Abnormal urine findings Is this a current diagnosis for this admission?: Yes Plan: Her reported recent antibiotic coverage may have altered the analysis outcome. See covering admitting attending physician orders for details about care plan. (6) HTN (hypertension) Qualifiers: Hypertension type: essential hypertension Qualified Code(s): I10 - Essential (primary) hypertension Is this a current diagnosis for this admission?: Yes Plan: See covering admitting attending physician orders for details about care plan. (7) Diverticula of colon Qualifiers: Diverticulosis bleeding: diverticulosis without bleeding Qualified Code(s): K57.30 - Diverticulosis of large intestine without perforation or abscess without bleeding Is this a current diagnosis for this admission?: Yes Plan: See covering admitting attending physician orders for details about care plan. - Time Time Spent: 50 to 70 Minutes Medications reviewed and adjusted accordingly: Yes Anticipated Discharge Disposition: [facility] - for [facility]. Anticipated Discharge Timeframe: within 72 hours - Inpatient Certification Based on my medical assessment, after consideration of the patient's comorbidities, presenting symptoms, or acuity I expect that the services needed warrant INPATIENT care.: Yes I certify that my determination is in accordance with my understanding of Medicare's requirements for reasonable and necessary INPATIENT services [42 CFR 412.3e].: Yes Medical Necessity: Significant Comorbidiites Make Outpatient Treatment Too Risky, Need Close Monitoring Due to Risk of Patient Decompensation, Need For Continuous Telemetry Monitoring, Need for Pain Control, Need for IV Antibiotics, Risk of Complication if Not Cared For in Hospital, Risk of Diagnosis Which Will Require Inpatient Eval/Care/Monitoring Post Hospital Care: D/C Cycle Liaison Documentation, D/C or Transfer Summary - Plan Summary Plan Summary: See covering admitting attending physician orders for details about care plan.
[2020-04-28] MEDS ORDERED: B12 PO SCH (14:00)
[2020-04-28] MEDS ORDERED: IRON PS COMPLEX PO SCH (14:00)
[2020-04-28] MEDS ORDERED: FOLIC ACID PO SCH (14:00)
[2020-04-28] MEDS ORDERED: PANTOPRAZOLE SODIUM 40 MG TABLET.DR PO SCH (15:00)
[2020-04-28] MEDS ORDERED: ALBUTEROL SULFATE HFA (90 MCG/PUFF) 8 GM MDI IH PRN (15:00)
[2020-04-28] MEDS: ACETAMINOPHEN WITH CODEINE #3 TABLET PO PRN ×2 (15:18→21:36)
[2020-04-28] MEDS: DILTIAZEM HCL 120 MG CAP.SR.24H PO SCH (15:18)
[2020-04-28] MEDS: FUROSEMIDE INJ/PF 20 MG/2 ML SDV IV SCH (15:19)
[2020-04-28] MEDS: IRON POLYSACCHARIDES COMPLEX 150 MG CAPSULE PO SCH ×3 (15:29→21:40)
[2020-04-28] MEDS: VALACYCLOVIR HCL 500 MG TABLET PO SCH (15:29)
[2020-04-28] MEDS ORDERED: CYANOCOBALAMIN (VITAMIN B-12) INJ 1000 MCG/1 ML VIAL IM SCH (16:15)
[2020-04-28] MEDS ORDERED: METOPROLOL TARTRATE 50 MG TABLET PO ONE (18:30)
[2020-04-28] MEDS: LATANOPROST 0.005% OPH SOLN 2.5 ML OU SCH (21:40)
[2020-04-28] MEDS: METOPROLOL TARTRATE 50 MG TABLET PO SCH (21:40)
[2020-04-28] MEDS ORDERED: BIMATOPROST OU SCH (22:00)
[2020-04-29 05:15] LABS: HEMATOCRIT 37.6 % (36.0-47.0); HEMOGLOBIN 13.5 g/dL (12.0-15.5); MEAN CORPUSCULAR HEMOGLOBIN 35.1 pg (27.0-33.4); MEAN CORPUSCULAR HGB CONC 35.9 g/dL (32.0-36.0); MEAN CORPUSCULAR VOLUME 98 fl (80-97); PLATELET COUNT 282 10^3/uL (150-450); RED BLOOD COUNT 3.85 10^6/uL (3.72-5.28); RED CELL DISTRIBUTION WIDTH 13.4 % (11.5-14.0); WHITE BLOOD COUNT 13.3 10^3/uL (4.0-10.5)
[2020-04-29 05:36] LABS: ALBUMIN 3.1 g/dL (3.5-5.0); ALKALINE PHOSPHATASE 103 U/L (38-126); ANION GAP 6 (5-19); ASPARTATE AMINO TRANSFERASE 21 U/L (14-36); BILIRUBIN,DIRECT 0.3 mg/dL (0.0-0.4); BILIRUBIN,TOTAL 0.6 mg/dL (0.2-1.3); BLOOD UREA NITROGEN 30 mg/dL (7-20); CALCIUM 8.9 mg/dL (8.4-10.2); CARBON DIOXIDE 30 mmol/L (22-30); CHLORIDE 100 mmol/L (98-107); CHOLESTEROL 142.04 mg/dL (0-200); GLUCOSE 119 mg/dL (75-110); POTASSIUM 3.6 mmol/L (3.6-5.0); TOTAL PROTEIN 5.4 g/dL (6.3-8.2); TRIGLYCERIDES 118 mg/dL (<150)
[2020-04-29 05:47] LABS: DIRECT LDL 79 mg/dL (<100)
[2020-04-29 05:56] LABS: ABSOLUTE LYMPHOCYTES# (MANUAL) 0.4 10^3/uL (0.5-4.7); ABSOLUTE MONOCYTES # (MANUAL) 0.7 10^3/uL (0.1-1.4); BAND NEUTROPHILS % (MANUAL) 2 % (3-5); BASOPHILS % (MANUAL) 0 % (0-2); EOSINOPHILS % (MANUAL) 0 % (0-6); LYMPHOCYTES % (MANUAL) 2 % (13-45); MONOCYTES % (MANUAL) 5 % (3-13); SEGMENTED NEUTROPHILS % (MAN) 90 % (42-78); TOTAL CELLS COUNTED 100
[2020-04-29 05:58] LABS: ANISOCYTOSIS SLIGHT; OVALOCYTES SLIGHT; PLATELET COMMENT ADEQUATE; POIKILOCYTOSIS SLIGHT; TOXIC GRANULATION 1+
[2020-04-29] MEDS: PANTOPRAZOLE SODIUM 40 MG TABLET.DR PO SCH (06:48)
[2020-04-29] MEDS: ACETAMINOPHEN WITH CODEINE #3 TABLET PO PRN ×3 (07:13→22:16)
[2020-04-29] MEDS: DILTIAZEM HCL 120 MG CAP.SR.24H PO SCH (09:43)
[2020-04-29] MEDS: ENOXAPARIN SODIUM INJ 40 MG/0.4 ML DISP.SYRIN SUBCUT SCH (09:43)
[2020-04-29] MEDS: METOPROLOL TARTRATE 50 MG TABLET PO SCH ×2 (09:43→22:16)
[2020-04-29] MEDS: FUROSEMIDE INJ/PF 20 MG/2 ML SDV IV SCH (09:43)
[2020-04-29] MEDS: IRON POLYSACCHARIDES COMPLEX 150 MG CAPSULE PO SCH ×4 (09:44→22:17)
[2020-04-29] MEDS: VALACYCLOVIR HCL 500 MG TABLET PO SCH (09:44)
[2020-04-29 14:50] LABS: PATH REVIEW PATHOLOGIST REVIEWED
--- NOTE | 2020-04-29 19:50 | RADIOLOGY REPORT (SQ) ---
EXAM DESCRIPTION: US LOWER EXTREMITY ARTERIES BILATERAL COMPLETED DATE/TME: 04/29/2020 00:00 CLINICAL HISTORY: 69 years, Female, Mottled skin legs, rt foot > lt foot, Pedal Edema COMPARISON: None. TECHNIQUE: Axial 2-D grayscale images of the lower extremities was acquired. Doppler was utilized. LIMITATIONS: None. FINDINGS: Right lower arterial peak systolic velocities: Common femoral: 91.8 cm/s; biphasic waveform Profunda: 53 cm/s; biphasic waveform Proximal SFA: 122 cm/s; biphasic waveform Mid SFA: 99.9 cm/s; biphasic waveform Distal SFA: 74 cm/s; biphasic waveform Proximal popliteal: 83.1 cm/s; biphasic waveform Distal popliteal: 86.6 cm/s; biphasic waveform Proximal CONVEYOR SYSTEM OPERATOR: 61.5 cm/s; biphasic waveform Distal CONVEYOR SYSTEM OPERATOR: 56.2 cm/s; triphasic waveform Dorsalis pedis: 61.8 cm/s; triphasic waveform Proximal KAYLEE: 58.5 cm/s; triphasic waveform Distal KAYLEE: 78.9 cm/s; biphasic waveform Mid peroneal: 58.5 cm/s; biphasic waveform Mild calcified atherosclerotic plaque is noted about the right lower extremity arterial tree. Left lower extremity arterial peak systolic velocities: Common femoral: 128 cm/s; biphasic waveform Profunda: 77.7 cm/s; biphasic waveform Proximal SFA: 126 cm/s; biphasic waveform Mid SFA: 105 cm/s; biphasic waveform Distal SFA: 105 cm/s; biphasic waveform Proximal popliteal: 71.7 cm/s; biphasic waveform Distal popliteal: 101 cm/s; biphasic waveform Proximal CONVEYOR SYSTEM OPERATOR: 36.8 cm/s; biphasic waveform Distal CONVEYOR SYSTEM OPERATOR: 81.0 cm/s; biphasic waveform Dorsalis pedis: 88.9 cm/s; biphasic waveform Proximal KAYLEE: 65.3 cm/s; biphasic waveform Distal KAYLEE: 74.2 cm/s; biphasic waveform Mid peroneal: 66.8 cm/s; biphasic waveform Mild calcified atherosclerotic plaque is noted about the left lower extremity arterial tree. IMPRESSION: No significant flow-limiting stenosis within either lower extremity. copyright 2010 [employer]- All Rights Reserved
--- NOTE | 2020-04-29 20:31 | PDOC PROGRESS REPORT ---
Subjective Progress Note for:: 04/29/20 Subjective:: Patient was admitted because of concern for CHF she was seen by the bedside she has lower extremity edema, she is extremely noncompliant with medication for control of blood pressure. She apparently fell over the weekend, she has multiple bruises in the lower extremities. She said she fell of couch at home. She has multiple complaints, abdominal pain, back pain extremity pain Reason For Visit: ACUTE ON CH. DIASTOLIC CHF; BACK PAIN; MULTIPLE Physical Exam Vital Signs: Temp Pulse Resp BP Pulse Ox 98.3 F 66 18 149/67 H 99 04/29/20 16:28 04/29/20 16:28 04/29/20 16:28 04/29/20 16:28 04/29/20 16:28 Intake & Output 04/28/20 04/29/20 04/30/20 06:59 06:59 06:59 Intake Total 50 2712 2181 Output Total 400 3300 Balance 50 2312 -1119 Weight 68.5 kg 68.5 kg General appearance: PRESENT: no acute distress Eye exam: PRESENT: PERRLA Respiratory exam: PRESENT: rhonchi Cardiovascular exam: PRESENT: +S1, +S2 GI/Abdominal exam: PRESENT: soft Extremities exam: PRESENT: pedal edema, other - bruises of the feet Neurological exam: PRESENT: alert Results Laboratory Results: 04/29/20 04:58 04/29/20 04:58 04/29/20 04/29/20 04:58 04:58 WBC 13.3 H RBC 3.85 Hgb 13.5 Hct 37.6 MCV 98 H MCH 35.1 H MCHC 35.9 RDW 13.4 Plt Count 282 Seg Neutrophils % Not Reportable Sodium 136.3 L Potassium 3.6 Chloride 100 Carbon Dioxide 30 Anion Gap 6 BUN 30 H Creatinine 0.54 Est GFR ( Amer) > 60 Glucose 119 H Calcium 8.9 Magnesium 2.3 Total Bilirubin 0.6 AST 21 Alkaline Phosphatase 103 Total Protein 5.4 L Albumin 3.1 L Triglycerides 118 Cholesterol 142.04 LDL Cholesterol Direct 79 VLDL Cholesterol 24.0 HDL Cholesterol 58 04/27/20 04/28/20 04/29/20 23:20 02:15 04:58 Troponin I < 0.012 NT-Pro-B Natriuret Pep 926 H 747 H Impressions: Venous Doppler Study 04/27/20 21:55 IMPRESSION: Nonvisualization of the right peroneal vein limits examination. No demonstrated DVT or SVT in either lower extremity. Thoracic Spine X-Ray 04/27/20 21:57 IMPRESSION: Compression fractures at T7 and T8 which appears similar to the previous exam. These are less well visualized on plain films than on the MRI examination. Lower Extremity Ultrasound 04/29/20 00:00 IMPRESSION: No significant flow-limiting stenosis within either lower extremity. copyright 2010 [employer]- All Rights Reserved Assessment & Plan - Diagnosis (1) Acute diastolic heart failure Is this a current diagnosis for this admission?: Yes Plan: Transthoracic echocardiogram ordered (2) Lower extremity pain Qualifiers: Laterality: bilateral Qualified Code(s): M79.604 - Pain in right leg; M79.605 - Pain in left leg Is this a current diagnosis for this admission?: Yes Plan: , There is no evidence of fracture, venous Doppler done of the extremities negative for DVT (3) Hypertensive urgency Is this a current diagnosis for this admission?: Yes Plan: Continue medication for the control of blood pressure - Time Time Spent with patient: 25-34 minutes Level of Care: MEDICAL Medications reviewed and adjusted accordingly: Yes Anticipated discharge: Home Anticipated DC Timeframe: within 72 hours - Inpatient Certification Based on my medical assessment, after consideration of the patient's comorbidities, presenting symptoms, or acuity I expect that the services needed warrant INPATIENT care.: Yes I certify that my determination is in accordance with my understanding of Medicare's requirements for reasonable and necessary INPATIENT services [42 CFR 412.3e].: Yes
[2020-04-29] MEDS: LATANOPROST 0.005% OPH SOLN 2.5 ML OU SCH (22:17)
[2020-04-30] MEDS: PANTOPRAZOLE SODIUM 40 MG TABLET.DR PO SCH (06:23)
[2020-04-30] MEDS: ACETAMINOPHEN WITH CODEINE #3 TABLET PO PRN ×3 (06:23→21:52)
[2020-04-30] MEDS: ENOXAPARIN SODIUM INJ 40 MG/0.4 ML DISP.SYRIN SUBCUT SCH (10:51)
[2020-04-30] MEDS: VALACYCLOVIR HCL 500 MG TABLET PO SCH (12:19)
[2020-04-30] MEDS: METOPROLOL TARTRATE 50 MG TABLET PO SCH ×2 (12:19→21:52)
[2020-04-30] MEDS: DILTIAZEM HCL 120 MG CAP.SR.24H PO SCH (12:19)
[2020-04-30] MEDS: FUROSEMIDE INJ/PF 20 MG/2 ML SDV IV SCH (12:19)
[2020-04-30] MEDS: IRON POLYSACCHARIDES COMPLEX 150 MG CAPSULE PO SCH ×4 (12:19→21:52)
--- NOTE | 2020-04-30 17:33 | PDOC PROGRESS REPORT ---
Subjective Progress Note for:: 04/30/20 Subjective:: Patient seen by the bedside,She is requesting for antibiotic for diverticulitis, she has a history of recurrent diverticulitis Reason For Visit: ACUTE ON CH. DIASTOLIC CHF; BACK PAIN; MULTIPLE Physical Exam Vital Signs: Temp Pulse Resp BP Pulse Ox 98.7 F 77 17 152/81 H 97 04/30/20 16:14 04/30/20 16:14 04/30/20 16:14 04/30/20 16:14 04/30/20 16:14 Intake & Output 04/29/20 04/30/20 05/01/20 06:59 06:59 06:59 Intake Total 2712 2181 Output Total 400 4500 Balance 2312 -2319 Weight 69.5 kg General appearance: PRESENT: no acute distress Eye exam: PRESENT: PERRLA Respiratory exam: PRESENT: clear to auscultation franky Cardiovascular exam: PRESENT: +S1, +S2 GI/Abdominal exam: PRESENT: tenderness Neurological exam: PRESENT: alert, CN II-XII grossly intact Results Laboratory Results: 04/29/20 04:58 04/29/20 04:58 04/28/20 02:40 Clean Catch Midstream Urine Culture - Final Escherichia Coli 04/27/20 04/28/20 04/29/20 23:20 02:15 04:58 Troponin I < 0.012 NT-Pro-B Natriuret Pep 926 H 747 H Impressions: Venous Doppler Study 04/27/20 21:55 IMPRESSION: Nonvisualization of the right peroneal vein limits examination. No demonstrated DVT or SVT in either lower extremity. Thoracic Spine X-Ray 04/27/20 21:57 IMPRESSION: Compression fractures at T7 and T8 which appears similar to the previous exam. These are less well visualized on plain films than on the MRI examination. Lower Extremity Ultrasound 04/29/20 00:00 IMPRESSION: No significant flow-limiting stenosis within either lower extremity. copyright 2010 [employer]- All Rights Reserved Assessment & Plan - Diagnosis (1) Acute diastolic (congestive) heart failure Is this a current diagnosis for this admission?: Yes (2) Hypertensive urgency Is this a current diagnosis for this admission?: Yes Plan: Continue medication for the control of blood pressure (3) Lower extremity pain Qualifiers: Laterality: bilateral Qualified Code(s): M79.604 - Pain in right leg; M79.605 - Pain in left leg Is this a current diagnosis for this admission?: Yes - Time Time Spent with patient: 25-34 minutes Level of Care: IMCU Medications reviewed and adjusted accordingly: Yes Anticipated discharge: Home Anticipated DC Timeframe: within 72 hours
[2020-04-30] MEDS: LATANOPROST 0.005% OPH SOLN 2.5 ML OU SCH (22:02)
[2020-05-01] MEDS: ACETAMINOPHEN WITH CODEINE #3 TABLET PO PRN ×4 (03:57→21:50)
[2020-05-01] MEDS: PANTOPRAZOLE SODIUM 40 MG TABLET.DR PO SCH (05:48)
[2020-05-01 09:20] LABS: HEMATOCRIT 39.1 % (36.0-47.0); HEMOGLOBIN 13.8 g/dL (12.0-15.5); MEAN CORPUSCULAR HEMOGLOBIN 34.7 pg (27.0-33.4); MEAN CORPUSCULAR HGB CONC 35.3 g/dL (32.0-36.0); MEAN CORPUSCULAR VOLUME 98 fl (80-97); RED BLOOD COUNT 3.98 10^6/uL (3.72-5.28); RED CELL DISTRIBUTION WIDTH 13.6 % (11.5-14.0); WHITE BLOOD COUNT 17.4 10^3/uL (4.0-10.5)
[2020-05-01 09:39] LABS: ABSOLUTE LYMPHOCYTES# (MANUAL) 0.9 10^3/uL (0.5-4.7); ABSOLUTE MONOCYTES # (MANUAL) 0.7 10^3/uL (0.1-1.4); BASOPHILS % (MANUAL) 0 % (0-2); EOSINOPHILS % (MANUAL) 0 % (0-6); LYMPHOCYTES % (MANUAL) 5 % (13-45); MONOCYTES % (MANUAL) 4 % (3-13); SEGMENTED NEUTROPHILS % (MAN) 91 % (42-78); TOTAL CELLS COUNTED 100
[2020-05-01 09:40] LABS: POLYCHROMASIA SLIGHT
[2020-05-01 09:41] LABS: PLATELET CLUMPS PRESENT; PLATELET COMMENT ADEQUATE
[2020-05-01 09:43] LABS: ANISOCYTOSIS SLIGHT; PLATELET COUNT 277 10^3/uL (150-450)
[2020-05-01 09:44] LABS: ALBUMIN 3.4 g/dL (3.5-5.0); ALKALINE PHOSPHATASE 133 U/L (38-126); ANION GAP 7 (5-19); ASPARTATE AMINO TRANSFERASE 24 U/L (14-36); BILIRUBIN,DIRECT 0.3 mg/dL (0.0-0.4); BILIRUBIN,TOTAL 0.6 mg/dL (0.2-1.3); BLOOD UREA NITROGEN 34 mg/dL (7-20); CALCIUM 8.9 mg/dL (8.4-10.2); CARBON DIOXIDE 29 mmol/L (22-30); CHLORIDE 97 mmol/L (98-107); GLUCOSE 146 mg/dL (75-110); POTASSIUM 4.4 mmol/L (3.6-5.0)
[2020-05-01] MEDS: FUROSEMIDE INJ/PF 20 MG/2 ML SDV IV SCH (10:21)
[2020-05-01] MEDS: ENOXAPARIN SODIUM INJ 40 MG/0.4 ML DISP.SYRIN SUBCUT SCH (10:22)
[2020-05-01] MEDS: DILTIAZEM HCL 120 MG CAP.SR.24H PO SCH (10:25)
[2020-05-01] MEDS: METOPROLOL TARTRATE 50 MG TABLET PO SCH ×2 (10:26→21:50)
[2020-05-01] MEDS: IRON POLYSACCHARIDES COMPLEX 150 MG CAPSULE PO SCH ×4 (10:40→21:50)
[2020-05-01] MEDS: VALACYCLOVIR HCL 500 MG TABLET PO SCH (10:41)
[2020-05-01] MEDS: DICYCLOMINE HCL 20 MG TABLET PO PRN ×2 (14:25→21:50)
--- NOTE | 2020-05-01 20:01 | PDOC PROGRESS REPORT ---
Subjective Progress Note for:: 05/01/20 Subjective:: Patient was seen today by the bedside, she continues to be uncomfortable, there is leukocytosis with a left shif,? Source of sepsis Reason For Visit: ACUTE ON CH. DIASTOLIC CHF; BACK PAIN; MULTIPLE Physical Exam Vital Signs: Temp Pulse Resp BP Pulse Ox 98.6 F 64 18 144/72 H 96 05/01/20 15:31 05/01/20 15:31 05/01/20 15:31 05/01/20 15:31 05/01/20 15:31 Intake & Output 04/30/20 05/01/20 05/02/20 06:59 06:59 06:59 Intake Total 2181 1784 760 Output Total 4500 3050 500 Balance -2319 -1266 260 Weight 69.5 kg 68.9 kg General appearance: PRESENT: no acute distress Eye exam: PRESENT: PERRLA Respiratory exam: PRESENT: clear to auscultation franky Cardiovascular exam: PRESENT: +S1, +S2 GI/Abdominal exam: PRESENT: soft Extremities exam: PRESENT: pedal edema, other - bruises of the feet Neurological exam: PRESENT: alert Results Laboratory Results: 05/01/20 08:50 05/01/20 08:50 05/01/20 05/01/20 08:50 08:50 WBC 17.4 H RBC 3.98 Hgb 13.8 Hct 39.1 MCV 98 H MCH 34.7 H MCHC 35.3 RDW 13.6 Plt Count 277 Seg Neutrophils % Not Reportable Sodium 132.9 L Potassium 4.4 Chloride 97 L Carbon Dioxide 29 Anion Gap 7 BUN 34 H Creatinine 0.54 Est GFR ( Amer) > 60 Glucose 146 H Calcium 8.9 Total Bilirubin 0.6 AST 24 Alkaline Phosphatase 133 H Total Protein 6.0 L Albumin 3.4 L 04/27/20 04/28/20 04/29/20 23:20 02:15 04:58 Troponin I < 0.012 NT-Pro-B Natriuret Pep 926 H 747 H Impressions: Venous Doppler Study 04/27/20 21:55 IMPRESSION: Nonvisualization of the right peroneal vein limits examination. No demonstrated DVT or SVT in either lower extremity. Thoracic Spine X-Ray 04/27/20 21:57 IMPRESSION: Compression fractures at T7 and T8 which appears similar to the previous exam. These are less well visualized on plain films than on the MRI examination. Lower Extremity Ultrasound 04/29/20 00:00 IMPRESSION: No significant flow-limiting stenosis within either lower extremity. copyright 2011 [employer]- All Rights Reserved Assessment & Plan - Diagnosis (1) Acute diastolic (congestive) heart failure Is this a current diagnosis for this admission?: Yes Plan: Echo done (2) Hypertensive urgency Is this a current diagnosis for this admission?: Yes (3) Lower extremity pain Qualifiers: Laterality: bilateral Qualified Code(s): M79.604 - Pain in right leg; M79.605 - Pain in left leg Is this a current diagnosis for this admission?: Yes (4) Leucocytosis Qualifiers: Leukocytosis type: unspecified Qualified Code(s): D72.829 - Elevated white blood cell count, unspecified Is this a current diagnosis for this admission?: Yes Plan: The exact etiology is unclear, obtain blood culture, urine culture urinalysis start IV Levaquin empirically for presumptive UTI - Time Time Spent with patient: 25-34 minutes Level of Care: IMCU Anticipated discharge: Home Anticipated DC Timeframe: within 72 hours
[2020-05-01] MEDS ORDERED: LEVOFLOXACIN 750 MG/D5W RTU 750 MG/150 ML RTUPB IV ONE (20:58)
--- NOTE | 2020-05-01 21:11 | RADIOLOGY REPORT (SQ) ---
XR CHEST 1 VIEW HISTORY: Fever. COMPARISON: 04/23/2020 FINDINGS: The heart size is within normal limits. There is no pulmonary vascular congestion. There are new patchy opacities with scarring in the left mid and lower lung zone. No pleural effusions or pneumothorax. No acute bony findings are seen. The right hemidiaphragm is elevated. IMPRESSION: New patchy opacities and scarring in the left lung, which may represent pneumonia.
[2020-05-01] MEDS: LATANOPROST 0.005% OPH SOLN 2.5 ML OU SCH (21:51)
[2020-05-01] MEDS ORDERED: LEVOFLOXACIN 750 MG/D5W RTU 750 MG/150 ML RTUPB IV SCH (22:00)
--- NOTE | 2020-05-02 02:01 | XCELERA REPORT ---
[address] [address] Transthoracic Echocardiogram Report Name: MICHAEL CAMEJO Age: 69 yrs Gender: Female : 1950 Patient Status: Inpatient Patient Location: [address] [place] [address] Study Date: 04/30/2020 10:33 AM Height: 63 in Weight: 151 lb BSA: 1.7 m2 Procedure: A two-dimensional transthoracic echocardiogram with color flow and Doppler was performed. The study was technically difficult with many images being suboptimal in quality. Reason For Study: chf History: CHF. Ordering Physician: ARACELI CORTEZ Performed By: Ruthann Delgado Interpretation Summary The left ventricle is normal in size. There is normal left ventricular wall thickness. LV EF is 60% Left ventricular systolic function is normal. The left ventricular wall motion is normal. There is no thrombus. Probably no ASD,VSD,or PFO sssssssssssssseen. The right ventricle is grossly normal size. The right atrium is normal. The left atrial size is normal. There is no evidence of mitral valve prolapse. There is no vegetation seen on the mitral valve. There is no mitral valve stenosis. There is a trace amount of mitral regurgitation There is no aortic valve stenosis There is no LVOT obstruction. No aortic regurgitation is present. There is no tricuspid stenosis. There is a mild amount of tricuspid regurgitation RVSP is 27 to 32 mm of HG.Hence RVSP is mormal to just above normal lmits. There is a trace amount of pulmonic regurgitation The aortic root is normal size. The inferior vena cava appeared normal and decreased > 50% with respiration (RAP 5-10 mmHg) There is no pericardial effusion. MMode/2D Measurements & Calculations RVDd: 2.9 cm LVIDd: 3.0 cm FS: 29.8 % Ao root diam: 2.6 cm IVSd: 1.0 cm LVIDs: 2.1 cm EDV(Teich): 33.9 ml Ao root area: 5.2 cm2 LVPWd: 0.95 cm ESV(Teich): 14.0 ml LA dimension: 2.5 cm EF(Teich): 58.6 % Doppler Measurements & Calculations MV E max kathryn: MV P1/2t max kathryn: Ao V2 max: LV V1 max P.5 cm/sec 77.5 cm/sec 114.6 cm/sec 3.9 mmHg MV A max kathryn: MV P1/2t: 49.8 msec Ao max P.3 mmHg LV V1 max: 100.7 cm/sec MVA(P1/2t): 4.4 cm2 98.2 cm/sec MV E/A: 0.78 MV dec slope: 455.6 cm/sec2 MV dec time: 0.17 sec PA V2 max: TR max kathryn: MV P1/2t-pr_phl: 78.5 cm/sec 233.5 cm/sec 49.8 msec PA max P.5 mmHg TR max P.8 mmHg Left Ventricle The left ventricle is normal in size. There is normal left ventricular wall thickness. LV EF is 60%. Left ventricular systolic function is normal. Doppler measurements suggest impaired left ventricular relaxation, which is associated with grade I/IV or mild diastolic dysfunction. The left ventricular wall motion is normal. There is no thrombus. Probably no ASD,VSD,or PFO sssssssssssssseen. Right Ventricle The right ventricle is grossly normal size. Atria The right atrium is normal. The left atrial size is normal. Mitral Valve There is no evidence of mitral valve prolapse. There is no vegetation seen on the mitral valve. There is no mitral valve stenosis. There is a trace amount of mitral regurgitation. Aortic Valve There is no aortic valvular vegetation. There is no aortic valve stenosis. There is no LVOT obstruction. No aortic regurgitation is present. Tricuspid Valve There is no tricuspid stenosis. There is a mild amount of tricuspid regurgitation. RVSP is 27 to 32 mm of HG.Hence RVSP is mormal to just above normal lmits. Pulmonic Valve There is no pulmonic valvular stenosis. There is a trace amount of pulmonic regurgitation. Great Vessels The aortic root is normal size. The inferior vena cava appeared normal and decreased > 50% with respiration (RAP 5-10 mmHg). Effusions There is no pericardial effusion. : ARACELI CORTEZ Lakshmi
[2020-05-02] MEDS: ACETAMINOPHEN WITH CODEINE #3 TABLET PO PRN ×2 (05:52→12:09)
[2020-05-02] MEDS: PANTOPRAZOLE SODIUM 40 MG TABLET.DR PO SCH (05:52)
[2020-05-02] MEDS: DICYCLOMINE HCL 20 MG TABLET PO PRN (05:52)
[2020-05-02 07:28] LABS: APPEARANCE,URINE SLIGHTLY-CLOUDY; BILIRUBIN,URINE NEGATIVE (NEGATIVE); COLOR,URINE YELLOW; GLUCOSE, URINE NEGATIVE (NEGATIVE); KETONES,URINE NEGATIVE (NEGATIVE); LEUKOCYTE ESTERASE,URINE NEGATIVE (NEGATIVE); NITRITE,URINE NEGATIVE (NEGATIVE); PROTEIN,URINE NEGATIVE (NEGATIVE); UROBILINOGEN,URINE NEGATIVE mg/dL (<2.0)
[2020-05-02 09:51] VITALS: BP 146/75
[2020-05-02 09:54] LABS: HEMATOCRIT 37.8 % (36.0-47.0); HEMOGLOBIN 13.3 g/dL (12.0-15.5); MEAN CORPUSCULAR HGB CONC 35.2 g/dL (32.0-36.0); MEAN CORPUSCULAR VOLUME 99 fl (80-97); PLATELET COUNT 289 10^3/uL (150-450); RED BLOOD COUNT 3.81 10^6/uL (3.72-5.28); RED CELL DISTRIBUTION WIDTH 13.2 % (11.5-14.0); WHITE BLOOD COUNT 15.6 10^3/uL (4.0-10.5)
[2020-05-02 10:23] LABS: ABSOLUTE LYMPHOCYTES# (MANUAL) 0.8 10^3/uL (0.5-4.7); ABSOLUTE MONOCYTES # (MANUAL) 0.5 10^3/uL (0.1-1.4); BAND NEUTROPHILS % (MANUAL) 1 % (3-5); BASOPHILS % (MANUAL) 0 % (0-2); EOSINOPHILS % (MANUAL) 0 % (0-6); LYMPHOCYTES % (MANUAL) 5 % (13-45); MONOCYTES % (MANUAL) 3 % (3-13); SEGMENTED NEUTROPHILS % (MAN) 91 % (42-78); TOTAL CELLS COUNTED 100
[2020-05-02 10:24] LABS: PLATELET COMMENT ADEQUATE
[2020-05-02 10:25] LABS: PLATELET CLUMPS PRESENT; POLYCHROMASIA SLIGHT; TOXIC VACUOLATION PRESENT
[2020-05-02] MEDS: IRON POLYSACCHARIDES COMPLEX 150 MG CAPSULE PO SCH (10:51)
[2020-05-02] MEDS: ENOXAPARIN SODIUM INJ 40 MG/0.4 ML DISP.SYRIN SUBCUT SCH (10:51)
[2020-05-02] MEDS: DILTIAZEM HCL 120 MG CAP.SR.24H PO SCH (10:51)
[2020-05-02] MEDS: VALACYCLOVIR HCL 500 MG TABLET PO SCH (10:51)
[2020-05-02] MEDS: METOPROLOL TARTRATE 50 MG TABLET PO SCH (10:51)
[2020-05-02] MEDS: FUROSEMIDE INJ/PF 20 MG/2 ML SDV IV SCH (10:52)
[2020-05-02 12:18] LABS: ALBUMIN 3.4 g/dL (3.5-5.0); ALKALINE PHOSPHATASE 144 U/L (38-126); ANION GAP 10 (5-19); ASPARTATE AMINO TRANSFERASE 21 U/L (14-36); BILIRUBIN,DIRECT 0.3 mg/dL (0.0-0.4); BILIRUBIN,TOTAL 0.4 mg/dL (0.2-1.3); BLOOD UREA NITROGEN 36 mg/dL (7-20); CALCIUM 8.7 mg/dL (8.4-10.2); CARBON DIOXIDE 26 mmol/L (22-30); CHLORIDE 98 mmol/L (98-107); GLUCOSE 183 mg/dL (75-110); POTASSIUM 4.4 mmol/L (3.6-5.0); TOTAL PROTEIN 6.1 g/dL (6.3-8.2)
--- NOTE | 2020-05-02 20:04 | Left Against Medical Advice ---
Against Medical Advice Admission Date/Time: 04/28/20 02:29 Primary Care Provider: ARACELI CORTEZ MD Date of Patient Emigration: 05/02/20 - Diagnosis: (1) Acute diastolic (congestive) heart failure Is this a current diagnosis for this admission?: Yes (2) Hypertensive urgency Is this a current diagnosis for this admission?: Yes (3) Lower extremity pain Is this a current diagnosis for this admission?: Yes (4) Leucocytosis Is this a current diagnosis for this admission?: Yes (5) MRSA (methicillin resistant Staphylococcus aureus) septicemia Is this a current diagnosis for this admission?: Yes - Summary: Summary: Please see Admission and Progress Notes as well. MICHAEL CAMEJO is a 69 F, who LEFT AGAINST MEDICAL ADVICE. The Patient was admitted on 04/28/20 02:29. Patient complains of: Back pain, Recurrent falls at home MICHAEL CAMEJO is a 69 year old female patient who presented to the ED with complain about back pain since April 11, 2020. Patient is a poor historian with some degree of demonstrable mental limitation. Patient reported ongoing back pain since her initial fall on April 11, 2020 with increasing difficulty with ambulation. She claimed to be bed bound status thereafter and transfer by crawling due to worsening pain in her back with walking. She reported recurrent falls at home and diagnosis of disc disease with treatment with steroid injection in the past. Patient claimed that surgical intervention has been suggested for her back problem. She denied numbness or tingling in her legs. She denies any recurrent recent injury or trauma. Patient reported limited oral intake due to her bed bound status and diarrhea that have led to her development of dehydration. She claimed diarrhea over last 5 weeks, history of chronic diverticulitis and currently on Levofloxacin and Flagyl therapy. She noted worsening swelling in her legs since her bed bound status. Her initial ED evaluation was significant for borderline elevated NT-Pro BNP level, leukocytosis with left shift, elevated BUN with hyperglycemia, abnormal urinalysis, compression fracture at T7 and T8, and lower extremities venous doppler that was negative for DVT or SVT. Her morbidities are as listed below. Due to concern for possible fluid overload, CHF, and back pain with ambulatory limitation she was advised hospitalization for further evaluation and management.Patient was admitted over the weekend, she has acute diastolic dysfunction of the left ventricle at presentation there was swelling of the lower extremities, upper extremities, venous Doppler of both upper and lower extremity was obtained, there was no evidence of deep vein thrombosis. She apparently fell at home with bruises on the feet bilaterally. Yesterday she developed new onset leukocytosis, she was empirically started on IV antibiotic to cover potential UTI blood culture was obtained, the results of the blood culture returned today, confirming she has MRSA septicemia patient cannot be convinced to stay and continue care she left AGAINST MEDICAL ADVICE despite the danger which could result in .I made several efforts to contact this patient, the different phone numbers listed as contact numbers were all wrong numbers. The different contact numbers were answered by different people.
[2020-05-05] MEDS ORDERED: CYANOCOBALAMIN (VITAMIN B-12) INJ 1000 MCG/1 ML VIAL IM SCH ×2 (10:00)
== END 2020-05-02 13:51 | disposition left against medical advice (07) | DRG 871 ==
LOC: ER 18:01 → EH 04-28 02:29 → 3S 04-28 04:22
PROVIDERS: ADMIT Internal Medicine; ATTEND Internal Medicine Geriatric Medicine
DX: A41.02 Sepsis due to Methicillin resistant Staphylococcus aureus (principal); I50.33 Acute on chronic diastolic (congestive) heart failure; M48.54XA Collapsed vertebra, not elsewhere classified, thoracic region, initial encounter for fracture; I16.0 Hypertensive urgency; I11.0 Hypertensive heart disease with heart failure; Z91.81 History of falling; R29.6 Repeated falls; R73.9 Hyperglycemia, unspecified; K21.9 Gastro-esophageal reflux disease without esophagitis; F32.9 Major depressive disorder, single episode, unspecified; D64.9 Anemia, unspecified; W07.XXXA Fall from chair, initial encounter; M54.6 Pain in thoracic spine; K57.30 Diverticulosis of large intestine without perforation or abscess without bleeding; Y92.009 Unspecified place in unspecified non-institutional (private) residence as the place of occurrence of the external cause; M79.605 Pain in left leg; M79.604 Pain in right leg; R82.90 Unspecified abnormal findings in urine; B96.20 Unspecified Escherichia coli [E. coli] as the cause of diseases classified elsewhere; Z74.01 Bed confinement status; Z79.899 Other long term (current) drug therapy; Z79.891 Long term (current) use of opiate analgesic; Z88.6 Allergy status to analgesic agent; Z88.3 Allergy status to other anti-infective agents; Z88.0 Allergy status to penicillin; Z88.2 Allergy status to sulfonamides
CPT/HCPCS: 36415; 71045; 72070; 80053; 80061; 81001; 83690; 83735; 83880; 84484; 85025; 87040; 87077; 87086; 87088; 87150; 87186; 93306; 93925; 93970; 96374; 96375; 99285; J1650; J1940; J1956; J2270; J3420; J3490

== ENCOUNTER 2020-05-05 13:32 | Inpatient (IN) | payer MEDICARE, MEDICAID ==
[2020-05-05] MEDS ORDERED: LEVOFLOXACIN 750 MG/D5W RTU 750 MG/150 ML RTUPB IV ONE (14:22)
--- NOTE | 2020-05-05 14:22 | ER Document Report ---
ED Medical Screen (RME) - General Chief Complaint: Abnormal Lab Results Stated Complaint: ABNORMAL LABS Time Seen by Provider: 05/05/20 14:11 Primary Care Provider: ARACELI CORTEZ MD [Primary Care Provider] - Follow up as needed Notes: Patient is a 69-year-old female who presents the emergency department with a chief complaint of generalized body pain. Patient was recently admitted to the hospital under Dr. Cortez service. She was admitted on 28 April for acute diastolic congestive heart failure, hypertensive urgency, lower extremity pain, leukocytosis, and MRSA septicemia. Patient left AGAINST MEDICAL ADVICE on May 02 to go check on her cat. Patient is back with worsening pain and Dr. Cortez called her to come back. Exam: Tachycardic in the 150s. We will give the patient a liter of IV fluids and restart her Levaquin, as she was on this in the hospital the other day. I have greeted and performed a rapid initial assessment of this patient. A comprehensive ED assessment and evaluation of the patient, analysis of test results and completion of medical decision making process will be conducted by an additional ED providers. TRAVEL OUTSIDE OF THE [place] IN LAST 30 DAYS: No - Related Data Allergies/Adverse Reactions: aspirin Allergy (Severe, Verified 03/10/20 15:33) Anaphylaxis Penicillins Allergy (Severe, Verified 03/10/20 15:33) Anaphylaxis hydrocodone [From Vicodin] Allergy (Intermediate, Verified 03/10/20 15:33) Anaphylaxis Sulfa (Sulfonamide Antibiotics) Allergy (Intermediate, Verified 03/10/20 15:33) iching, nausea codeine Allergy (Mild, Verified 03/10/20 15:33) Diarrhea meperidine HCl [From Demerol] Allergy (Mild, Verified 03/10/20 15:33) heart palpitations ciprofloxacin Adverse Reaction (Verified 03/10/20 15:33) NAUSEA, ITCHING Past Medical History - Social History Family history: Reviewed & Not Pertinent - Past Medical History Cardiac Medical History: Reports: Hx Hypertension Denies: Hx Congestive Heart Failure, Hx Heart Attack Pulmonary Medical History: Reports: Hx Asthma, Hx Bronchitis, Hx Pneumonia Denies: Hx COPD, Hx Tuberculosis Neurological Medical History: Denies: Hx Seizures, Hx Parkinson's Disease Renal/ Medical History: Denies: Hx End Stage Renal Disease, Hx Peritoneal Dialysis GI Medical History: Reports: Hx Crohn's Disease, Hx Diverticulitis, Hx Gastr oesophageal Reflux Disease, Hx Hiatal Hernia, Hx Irritable Bowel. Denies: Hx Cirrhosis, Hx Hepatitis Musculoskeltal Medical History: Reports Hx Arthritis, Reports Hx Musculoskeletal Deformity, Reports Hx Musculoskeletal Trauma Psychiatric Medical History: Reports: Hx Anxiety, Hx Depression Denies: Hx Bipolar Disorder Infectious Medical History: Denies: Hx Hepatitis Past Surgical History: Reports: Hx Abdominal Surgery - small intestine removal, Hx Appendectomy, Hx Bowel Surgery - small intestine, Hx Breast Surgery - biopsy, Hx Hysterectomy, Hx Neurologic Surgery - brain tumor removed, Hx Tonsillectomy. Denies: Hx Mastectomy, Hx Pacemaker - Immunizations Immunizations up to date: Yes Hx Diphtheria, Pertussis, Tetanus Vaccination: Yes - 09/2010 Physical Exam - Vital signs Vitals: Temp Pulse Resp BP Pulse Ox 99.0 F 154 H 24 H 153/111 H 97 05/05/20 14:04 05/05/20 14:04 05/05/20 14:04 05/05/20 14:04 05/05/20 14:04 Course - Vital Signs Vital signs: Temp Pulse Resp BP Pulse Ox 99.0 F 154 H 24 H 153/111 H 97 05/05/20 14:04 05/05/20 14:04 05/05/20 14:04 05/05/20 14:04 05/05/20 14:04 Doctor's Discharge - Discharge Referrals: ARACELI CORTEZ MD [Primary Care Provider] - Follow up as needed
[2020-05-05] MEDS ORDERED: NORMAL SALINE 1000 ML 1,000 ML IV ONE (14:24)
[2020-05-05 15:07] LABS: APPEARANCE,URINE SLIGHTLY-CLOUDY; BILIRUBIN,URINE NEGATIVE (NEGATIVE); COLOR,URINE YELLOW; GLUCOSE, URINE NEGATIVE (NEGATIVE); KETONES,URINE NEGATIVE (NEGATIVE); PROTEIN,URINE 30 mg/dL (NEGATIVE); URINE SPECIFIC GRAVITY 1.015; UROBILINOGEN,URINE NEGATIVE mg/dL (<2.0)
[2020-05-05 15:19] LABS: ABSOLUTE BASOPHILS # (AUTO) 0.1 10^3/uL (0.0-0.2); ABSOLUTE LYMPHOCYTES (AUTO) 0.8 10^3/uL (0.5-4.7); ABSOLUTE MONOCYTES (AUTO) 1.1 10^3/uL (0.1-1.4); ABSOLUTE NEUT (AUTO) 11.5 10^3/uL (1.7-8.2); BASOPHILS % (AUTO) 0.6 % (0-2); EOSINOPHILS % (AUTO) 0.1 % (0-6); HEMATOCRIT 40.9 % (36.0-47.0); HEMOGLOBIN 14.3 g/dL (12.0-15.5); LYMPHOCYTES % (AUTO) 5.8 % (13-45); MEAN CORPUSCULAR HEMOGLOBIN 34.9 pg (27.0-33.4); MEAN CORPUSCULAR HGB CONC 34.9 g/dL (32.0-36.0); MEAN CORPUSCULAR VOLUME 100 fl (80-97); MONOCYTES % (AUTO) 8.4 % (3-13); PLATELET COUNT 327 10^3/uL (150-450); RED BLOOD COUNT 4.09 10^6/uL (3.72-5.28); RED CELL DISTRIBUTION WIDTH 13.4 % (11.5-14.0); SEGMENTED NEUTROPHILS % (AUTO) 85.1 % (42-78); TOTAL CELLS COUNTED % (AUTO) 100 %; WHITE BLOOD COUNT 13.5 10^3/uL (4.0-10.5)
[2020-05-05 15:35] LABS: ALBUMIN 3.7 g/dL (3.5-5.0); ALKALINE PHOSPHATASE 158 U/L (38-126); ANION GAP 9 (5-19); ASPARTATE AMINO TRANSFERASE 25 U/L (14-36); BILIRUBIN,DIRECT 0.3 mg/dL (0.0-0.4); BILIRUBIN,TOTAL 0.7 mg/dL (0.2-1.3); BLOOD UREA NITROGEN 33 mg/dL (7-20); CALCIUM 8.9 mg/dL (8.4-10.2); CARBON DIOXIDE 27 mmol/L (22-30); CHLORIDE 106 mmol/L (98-107); GLUCOSE 187 mg/dL (75-110); POTASSIUM 3.9 mmol/L (3.6-5.0); TOTAL PROTEIN 6.7 g/dL (6.3-8.2)
[2020-05-05 15:54] LABS: ARTERIAL BLOOD BASE EXCESS 0.6 mmol/L; ARTERIAL BLOOD H2CO3 1.03 mmol/L (1.05-1.35); ARTERIAL BLOOD HCO3 23.5 mmol/L (20-24); ARTERIAL BLOOD PCO2 34.3 mmHg (35-45); ARTERIAL BLOOD PH 7.45 (7.35-7.45); ARTERIAL BLOOD PO2 86.7 mmHg (80-100); ARTERIAL BLOOD TOTAL CO2 24.6 mmol/L (21-25)
[2020-05-05 15:56] LABS: ARTERIAL BLOOD FIO2 ROOM AIR
--- NOTE | 2020-05-05 15:57 | RADIOLOGY REPORT (SQ) ---
EXAM DESCRIPTION: CHEST 2 VIEWS IMAGES COMPLETED DATE/TIME: 05/05/2020 2:16 pm REASON FOR STUDY: weakness. COMPARISON: 05/01/2020 EXAM PARAMETERS: NUMBER OF VIEWS: two views TECHNIQUE: Digital Frontal and Lateral radiographic views of the chest acquired. RADIATION DOSE: NA LIMITATIONS: none FINDINGS: LUNGS AND PLEURA: There is improved aeration in the left lung, consistent with resolved at electasis/consolidation. No pleural effusion or pneumothorax. MEDIASTINUM AND HILAR STRUCTURES: No masses or contour abnormalities. HEART AND VASCULAR STRUCTURES: Heart normal size. No evidence for failure. BONES: No acute findings. HARDWARE: None in the chest. OTHER: No other significant finding. IMPRESSION: Improved aeration in the left lung. No acute cardiopulmonary disease. TECHNICAL DOCUMENTATION: JOB ID: [id number] 2010 [employer]- All Rights Reserved Reading location - IP/workstation name: [email or web address]
--- NOTE | 2020-05-05 16:42 | ER Document Report ---
Entered by YAMILET MANZANARES SCRIBE 05/05/20 1604 Acting as scribe for:MIKE GRIGGS MD ED General - General Chief Complaint: Abnormal Lab Results Stated Complaint: ABNORMAL LABS Time Seen by Provider: 05/05/20 14:11 Primary Care Provider: ARACELI CORTEZ MD [Primary Care Provider] - Follow up as needed Mode of Arrival: Ambulatory Information source: Patient Notes: This 69 year old female patient presents to the emergency department today with complaints of "pain all over". EMS was called to the patient's house due to concern of abnormal labs. She was just admitted to this facility but signed out AMA "because she loves her cat". EMS does not know which labs were abnormal but they do mention a concern for possible sepsis. This patient was admitted to the facility on 04/28/2020. During her work-up she was diagnosed with acute CHF, back pain, and blood and urine cultures were positive for MRSA. She was being treated with Levaquin IV prior to her leaving AMA. She signed out AMA on 05/02/2020 because she needed to go home and take care of her cats. TRAVEL OUTSIDE OF THE [place] IN LAST 30 DAYS: No - Related Data Allergies/Adverse Reactions: aspirin Allergy (Severe, Verified 03/10/20 15:33) Anaphylaxis Penicillins Allergy (Severe, Verified 03/10/20 15:33) Anaphylaxis hydrocodone [From Vicodin] Allergy (Intermediate, Verified 03/10/20 15:33) Anaphylaxis Sulfa (Sulfonamide Antibiotics) Allergy (Intermediate, Verified 03/10/20 15:33) iching, nausea codeine Allergy (Mild, Verified 03/10/20 15:33) Diarrhea meperidine HCl [From Demerol] Allergy (Mild, Verified 03/10/20 15:33) heart palpitations ciprofloxacin Adverse Reaction (Verified 03/10/20 15:33) NAUSEA, ITCHING Past Medical History - General Information source: Patient - Social History Smoking Status: Never Smoker Cigarette use (# per day): No Frequency of alcohol use: None Drug Abuse: None Lives with: Alone Family History: Reviewed & Not Pertinent, Arthritis, CAD, CVA, DM, Hyperlipidemia, Hypertension, Malignancy, Thyroid Disfunction - Past Medical History Cardiac Medical History: Reports: Hx Hypertension Pulmonary Medical History: Reports: Hx Asthma, Hx Bronchitis, Hx Pneumonia GI Medical History: Reports: Hx Crohn's Disease, Hx Diverticulitis, Hx Gastroeso phageal Reflux Disease, Hx Hiatal Hernia, Hx Irritable Bowel Musculoskeletal Medical History: Reports Hx Arthritis, Reports Hx Musculoskeletal Deformity, Reports Hx Musculoskeletal Trauma Psychiatric Medical History: Reports: Hx Anxiety, Hx Depression Past Surgical History: Reports: Hx Abdominal Surgery - small intestine removal, Hx Appendectomy, Hx Bowel Surgery - small intestine, Hx Breast Surgery - biopsy, Hx Hysterectomy, Hx Neurologic Surgery - brain tumor removed, Hx Tonsillectomy - Immunizations Immunizations up to date: Yes Hx Diphtheria, Pertussis, Tetanus Vaccination: Yes - 09/2010 Hx Pneumococcal Vaccination: 08/24/10 Review of Systems - Review of Systems Constitutional: No symptoms reported EENT: No symptoms reported Cardiovascular: No symptoms reported Respiratory: No symptoms reported Gastrointestinal: No symptoms reported Genitourinary: No symptoms reported Female Genitourinary: No symptoms reported Musculoskeletal: See HPI, Joint pain, Muscle pain Skin: No symptoms reported Hematologic/Lymphatic: No symptoms reported Neurological/Psychological: No symptoms reported -: Yes All other systems reviewed and negative Physical Exam - Vital signs Vitals: Temp Pulse Resp BP Pulse Ox 99.0 F 154 H 24 H 153/111 H 97 05/05/20 14:04 05/05/20 14:04 05/05/20 14:04 05/05/20 14:04 05/05/20 14:04 - Notes Notes: Physical Exam: General: Alert. Speaks rapidly, does not really stop talking throughout interaction, complains of pain all over. HEENT: Normocephalic. Atraumatic. PERRL. Extraocular movements intact. Oropharynx clear. Face appears to be much more rounded and swollen than baseline. Neck: Supple. Non-tender. Respiratory: No respiratory distress. Clear and equal breath sounds bilaterally. Cardiovascular: Tachycardic at around 130, heart rate jumped to about 145 when excited. Abdominal: Normal Inspection. Non-tender. No distension. Normal Bowel Sounds. Back: No gross abnormalities. Extremities: Moves all four extremities. Upper extremities: Normal inspection. Normal ROM. Lower extremities: 1-2+ pitting edema bilaterally, dependent ecchymosis of the left foot going into the toes. Neurological: Normal cognition. AAOx4. Normal speech. Psychological: Normal affect. Normal Mood. Skin: Warm. Dry. Normal color. Course - Re-evaluation Re-evalutation: 05/05/20 17:26 Patient was given Lopressor 2.5 mg IV, heart rate slowed down to 100. ABG shows the patient is a little hypoxic and hyperventilating so she will be placed on nasal cannula oxygen. The patient's BNP is quite elevated at 1260, while her chest x-ray is actually improved from the previous and does not appear to have CHF. - Vital Signs Vital signs: Temp Pulse Resp BP Pulse Ox 99.0 F 154 H 20 138/123 H 99 05/05/20 14:04 05/05/20 14:04 05/05/20 17:01 05/05/20 17:00 05/05/20 17:01 - Laboratory Result Diagrams: 05/05/20 14:48 05/05/20 14:48 Laboratory results interpreted by me: 05/05/20 05/05/20 05/05/20 13:50 14:48 14:48 WBC 13.5 H MCV 100 H MCH 34.9 H Lymph % (Auto) 5.8 L Absolute Neuts (auto) 11.5 H Seg Neutrophils % 85.1 H Carbonic Acid ABG pCO2 BUN 33 H Glucose 187 H Magnesium Alkaline Phosphatase 158 H NT-Pro-B Natriuret Pep Urine Protein 30 H Leukocyte Esterase Rfl SMALL H 05/05/20 05/05/20 05/05/20 14:48 14:48 15:40 WBC MCV MCH Lymph % (Auto) Absolute Neuts (auto) Seg Neutrophils % Carbonic Acid 1.03 L ABG pCO2 34.3 L BUN Glucose Magnesium 2.6 H Alkaline Phosphatase NT-Pro-B Natriuret Pep 1260 H Urine Protein Leukocyte Esterase Rfl - EKG Interpretation by Oh EKG shows normal: Sinus rhythm, [place], Intervals, ST-T Waves. abnormal: QRS Complexes - Borderline inferior Q's Rate: Tachycardia - 130 P Waves: LAE When compared to previous EKG there are: No significant change Critical Care Note - Critical Care Note Total time excluding time spent on procedures (mins): 35 Comments: At least 35 minutes spent evaluating the patient, reviewing current and past medical records, particularly the most recent admission where she left AMA. Ex treme tachycardia was treated successfully with beta-blockade. Consultations with primary care provider for admission. Discharge - Discharge Clinical Impression: MRSA (methicillin resistant Staphylococcus aureus) septicemia, Tachycardia, Elevated brain natriuretic peptide (BNP) level, Hypoxemia Urinary tract infection Qualifiers: Urinary tract infection type: site unspecified Hematuria presence: with hematuria Qualified Code(s): N39.0 - Urinary tract infection, site not specified; R31.9 - Hematuria, unspecified Dyspnea Qualifiers: Dyspnea type: shortness of breath Qualified Code(s): R06.02 - Shortness of breath; R06.00 - Dyspnea, unspecified; R06.01 - Orthopnea Condition: Fair Disposition: ADMITTED INPATIENT Admitting Provider: [facility] Unit Admitted: IMCU Referrals: ARACELI CORTEZ MD [Primary Care Provider] - Follow up as needed I personally performed the services described in the documentation, reviewed and edited the documentation which was dictated to the scribe in my presence, and it accurately records my words and actions.
[2020-05-05] MEDS ORDERED: METOPROLOL TARTRATE PF/INJ 5 MG/5 ML SDV IV ONE (16:44)
[2020-05-05] MEDS ORDERED: CLINDAMYCIN 600 MG/D5W RTU 600 MG/50 ML RTUPB IV ONE (17:48)
[2020-05-05] MEDS ORDERED: MORPHINE SULFATE 10 MG/ML INJ IV ONE (17:53)
--- NOTE | 2020-05-05 19:59 | PDOC H&P ---
History of Present Illness Admission Date/PCP: 05/05/20 17:53 ARACELI CORTEZ MD History of Present Illness: MICHAEL CAMEJO is a 69 year old female She is extremely noncompliant, she left AGAINST MEDICAL ADVICE on May 02, 2020, she was recently admitted on April 28, 2020 when she presented to the emergency room with multiple complaints at that time, The complaints include back pain, chronic back pain which was exacerbated when she fell on April 11, 2020 with decreasing di fficulty ambulating. After she fell she was essentially bedbound crawling, the last time she was admitted she had tremendous swelling including bilateral lower extremity edema with multiple areas of bruises involving both lower extremities, a transthoracic echocardiogram was obtained that demonstrated preserved ejection fraction with mild diastolic dysfunction of left ventricle.The day before she left AGAINST MEDICAL ADVICE she was found to have leukocytosis with low-grade fever there was no potential sources apparently identified she was empirically Started on IV antibiotic for presumptive UTI. Sepsis work-up was ensued including blood culture urine culture, the day she left AGAINST MEDICAL ADVICE, The blood culture returned as methicillin resistant staph aureus attempt was made to contact patient without success. My understanding is that Adult Protective Services is involved in her case,, the adult protective service made her return to the emergency room . Past Medical History Cardiac Medical History: Reports: Hypertension Denies: Congestive Heart Failure, Myocardial Infarction Pulmonary Medical History: Reports: Asthma, Bronchitis, Pneumonia Denies: Chronic Obstructive Pulmonary Disease (COPD), Tuberculosis Neurological Medical History: Denies: Seizures Renal/ Medical History: Denies: End Stage Renal Disease GI Medical History: Reports: Crohn's Disease, Diverticulitis, Gastroesophageal Reflux Disease, Hiatal Hernia Denies: Cirrhosis, Hepatitis Musculoskeltal Medical History: Reports: Arthritis Psychiatric Medical History: Reports: Depression Denies: Bipolar Disorder Hematology: Reports: Anemia Past Surgical History Past Surgical History: Reports: Appendectomy, Hysterectomy, Tonsillectomy Denies: Mastectomy, Pacemaker Social History Lives with: Alone Smoking Status: Never Smoker Frequency of Alcohol Use: None Hx Recreational Drug Use: No Drugs: None Hx Prescription Drug Abuse: No Family History Family History: Reviewed & Not Pertinent, Arthritis, CAD, CVA, DM, Hyperlipidemia, Hypertension, Malignancy, Thyroid Disfunction Parental Family History Reviewed: Yes Children Family History Reviewed: Yes Sibling(s) Family History Reviewed.: Yes Medication/Allergy Home Medications: RX: Albuterol Sulfate [Proair HFA Inhalation Aerosol 8.5 gm MDI] 2 puff IH Q6HP PRN 12/26/18 RX: Cyanocobalamin (Vitamin B-12) [Vitamin B-12 Inj 1000 Mcg/1 ml Vial] 1 ml IM MO@1000 12/26/18 RX: Dexlansoprazole [Dexilant 60 mg Capsule] 60 mg PO DAILY 12/26/18 RX: Diltiazem HCl [Cardizem Cd 120 mg Capsule] 120 mg PO DAILY 05/03/19 RX: Bimatoprost [Lumigan 0.01% Oph Soln 2.5 ml/Bottle] 1 drop OU QHS 09/17/19 RX: Iron Ps Complex/B12/Folic Acid [Ferrex 150 Forte Capsule] 1 cap PO QID 09/17 RX: Triamcinolone Acetonide [Aristocort 0.5% Cream 15 gm] 1 applic TOP Q12 tube 09/19/19 Acetaminophen with Codeine [Tylenol with Codeine #3 Tablet] 1 each PO Q6HP PRN 04/28/20 Cyclobenzaprine HCl [Flexeril 10 mg Tablet] 10 mg PO Q8HP PRN 04/28/20 Dicyclomine HCl [Bentyl 20 mg Tablet] 20 mg PO Q6HP PRN 04/28/20 Furosemide [Lasix 20 mg Tablet] 20 mg PO DAILY 04/28/20 Naproxen Sodium [Aleve] 220 mg PO ASDIR PRN 04/28/20 Prochlorperazine Maleate [Compazine 5 Mg Tablet] 5 mg PO TIDP PRN 04/28/20 RX: Lactulose [Enulose] 30 ml PO DAILY 04/28/20 RX: Losartan/Hydrochlorothiazide [Hyzaar 100-12.5 Tablet] 1 tab PO DAILY 04/28/20 RX: Meclizine HCl [Antivert 25 mg Tablet] 25 mg PO BID 04/28/20 RX: Metoprolol Tartrate [Lopressor 50 mg Tablet] 50 mg PO Q12 04/28/20 Valacyclovir HCl [Valtrex 500 mg Tablet] 1,000 mg PO DAILY 04/28/20 Allergies/Adverse Reactions: aspirin Allergy (Severe, Verified 03/10/20 15:33) Anaphylaxis Penicillins Allergy (Severe, Verified 03/10/20 15:33) Anaphylaxis hydrocodone [From Vicodin] Allergy (Intermediate, Verified 03/10/20 15:33) Anaphylaxis Sulfa (Sulfonamide Antibiotics) Allergy (Intermediate, Verified 03/10/20 15:33) iching, nausea codeine Allergy (Mild, Verified 03/10/20 15:33) Diarrhea meperidine HCl [From Demerol] Allergy (Mild, Verified 03/10/20 15:33) heart palpitations ciprofloxacin Adverse Reaction (Verified 03/10/20 15:33) NAUSEA, ITCHING Review of Systems Constitutional: PRESENT: other Cardiovascular: ABSENT: chest pain, dyspnea on exertion, edema, orthropnea, palpitations Respiratory: ABSENT: cough, hemoptysis Gastrointestinal: ABSENT: abdominal pain, constipation, diarrhea, hematemesis, hematochezia, nausea, vomiting Genitourinary: ABSENT: dysuria, hematuria Musculoskeletal: ABSENT: joint swelling Integumentary: ABSENT: rash, wounds Neurological: PRESENT: frequent falls, paresthesias Psychiatric: PRESENT: anxiety Endocrine: ABSENT: cold intolerance, heat intolerance, menstrual abnormalities, polydipsia, polyuria Hematologic/Lymphatic: ABSENT: easy bleeding, easy bruising, lymphadenopathy Physical Exam Vital Signs: Temp Pulse Resp BP Pulse Ox 98.7 F 154 H 19 167/86 H 100 05/05/20 19:10 05/05/20 14:04 05/05/20 19:01 05/05/20 19:01 05/05/20 19:01 Intake & Output 05/04/20 05/05/20 05/06/20 06:59 06:59 06:59 Intake Total 1200 Balance 1200 Weight 68.6 kg General appearance: PRESENT: no acute distress Eye exam: PRESENT: PERRLA Respiratory exam: PRESENT: clear to auscultation franky Cardiovascular exam: PRESENT: +S1, +S2 GI/Abdominal exam: PRESENT: soft Neurological exam: PRESENT: alert Skin exam: PRESENT: abrasion, rash Results Laboratory Results: 05/05/20 14:48 05/05/20 14:48 05/05/20 05/05/20 05/05/20 13:50 14:48 14:48 WBC 13.5 H RBC 4.09 Hgb 14.3 Hct 40.9 MCV 100 H MCH 34.9 H MCHC 34.9 RDW 13.4 Plt Count 327 Seg Neutrophils % 85.1 H Carbonic Acid HCO3/H2CO3 Ratio ABG pH ABG pCO2 ABG pO2 ABG HCO3 ABG O2 Saturation ABG Base Excess FiO2 Sodium Potassium Chloride Carbon Dioxide Anion Gap BUN Creatinine Est GFR ( Amer) Glucose Lactic Acid 1.4 Calcium Magnesium Total Bilirubin AST Alkaline Phosphatase Total Protein Albumin Urine Color YELLOW Urine Appearance SLIGHTLY-CLOUDY Urine pH 7.0 Ur Specific [place] 1.015 Urine Protein 30 H Urine Glucose (UA) NEGATIVE Urine Ketones NEGATIVE Urine Blood NEGATIVE Urine RBC (Auto) 4 05/05/20 05/05/20 05/05/20 14:48 14:48 15:40 WBC RBC Hgb Hct MCV MCH MCHC RDW Plt Count Seg Neutrophils % Carbonic Acid 1.03 L HCO3/H2CO3 Ratio 22:1 ABG pH 7.45 ABG pCO2 34.3 L ABG pO2 86.7 ABG HCO3 23.5 ABG O2 Saturation 97.0 ABG Base Excess 0.6 FiO2 ROOM AIR Sodium 141.5 Potassium 3.9 Chloride 106 Carbon Dioxide 27 Anion Gap 9 BUN 33 H Creatinine 0.62 Est GFR ( Amer) > 60 Glucose 187 H Lactic Acid Calcium 8.9 Magnesium 2.6 H Total Bilirubin 0.7 AST 25 Alkaline Phosphatase 158 H Total Protein 6.7 Albumin 3.7 Urine Color Urine Appearance Urine pH Ur Specific [place] Urine Protein Urine Glucose (UA) Urine Ketones Urine Blood Urine RBC (Auto) 05/05/20 17:10 WBC RBC Hgb Hct MCV MCH MCHC RDW Plt Count Seg Neutrophils % Carbonic Acid HCO3/H2CO3 Ratio ABG pH ABG pCO2 ABG pO2 ABG HCO3 ABG O2 Saturation ABG Base Excess FiO2 Sodium Potassium Chloride Carbon Dioxide Anion Gap BUN Creatinine Est GFR ( Amer) Glucose Lactic Acid 2.6 H Calcium Magnesium Total Bilirubin AST Alkaline Phosphatase Total Protein Albumin Urine Color Urine Appearance Urine pH Ur Specific [place] Urine Protein Urine Glucose (UA) Urine Ketones Urine Blood Urine RBC (Auto) 05/05/20 14:48 NT-Pro-B Natriuret Pep 1260 H Impressions: Chest X-Ray 05/05/20 14:16 IMPRESSION: Improved aeration in the left lung. No acute cardiopulmonary disease. Assessment & Plan - Diagnosis (1) MRSA (methicillin resistant Staphylococcus aureus) septicemia Is this a current diagnosis for this admission?: Yes Plan: She has MRSA septicemia, sensitive to clindamycin, she has MRSA in the urine, MRSA is not a typical uropathogen, MRSA in the urine suggests a distal source. She may need a CORINE to rule out endocarditis in this patient (2) Urinary tract infection Qualifiers: Urinary tract infection type: acute cystitis Hematuria presence: without hematuria Qualified Code(s): N30.00 - Acute cystitis without hematuria Is this a current diagnosis for this admission?: Yes (3) Essential (primary) hypertension Is this a current diagnosis for this admission?: Yes Plan: The blood pressure is not well controlled, she is not compliant consistently with her medication for the control of blood pressure - Time Time Spent: Greater than 70 Minutes Medications reviewed and adjusted accordingly: Yes Anticipated Discharge Disposition: Home, Self Care Anticipated Discharge Timeframe: within 72 hours - Inpatient Certification Based on my medical assessment, after consideration of the patient's comorbidities, presenting symptoms, or acuity I expect that the services needed warrant INPATIENT care.: Yes I certify that my determination is in accordance with my understanding of Medicare's requirements for reasonable and necessary INPATIENT services [42 CFR 412.3e].: Yes
[2020-05-05 20:57] LABS: APPEARANCE,URINE CLOUDY; BILIRUBIN,URINE NEGATIVE (NEGATIVE); COLOR,URINE YELLOW; GLUCOSE, URINE 50 mg/dL (NEGATIVE); KETONES,URINE NEGATIVE (NEGATIVE); LEUKOCYTE ESTERASE,URINE LARGE (NEGATIVE); NITRITE,URINE NEGATIVE (NEGATIVE); PROTEIN,URINE 30 mg/dL (NEGATIVE); URINE SPECIFIC GRAVITY 1.016; UROBILINOGEN,URINE NEGATIVE mg/dL (<2.0)
[2020-05-05 20:59] LABS: URINE AMPHETAMINES SCREEN NEGATIVE; URINE BARBITURATES SCREEN NEGATIVE; URINE BENZODIAZEPINES SCREEN NEGATIVE; URINE COCAINE SCREEN NEGATIVE; URINE MARIJUANA (THC) SCREEN NEGATIVE; URINE METHADONE SCREEN NEGATIVE; URINE PHENCYCLIDINE SCREEN NEGATIVE
[2020-05-05 21:10] LABS: PHOSPHORUS 3.5 mg/dL (2.5-4.5)
[2020-05-05 21:11] LABS: AMYLASE < 30 U/L (30-110)
[2020-05-05 21:22] LABS: PROTHROMBIN TIME 13.4 SEC (11.4-15.4)
[2020-05-05 21:24] LABS: PARTIAL THROMBOPLASTIN TIME 28.1 SEC (23.5-35.8)
[2020-05-05 21:26] LABS: CREATINE KINASE MB 1.12 ng/mL (<4.55); TROPONIN I 0.016 ng/mL
[2020-05-05 21:44] LABS: THYROID STIMULATING HORMONE 2.03 uIU/mL (0.47-4.68)
--- NOTE | 2020-05-05 21:44 | EKG REPORT ---
SEVERITY:- BORDERLINE ECG - SINUS TACHYCARDIA PROBABLE LEFT ATRIAL ABNORMALITY BORDERLINE INFERIOR Q WAVES : Confirmed by: Dominique Stevens 05-May-2020 21:43:24
[2020-05-05] MEDS: CLINDAMYCIN 600 MG/D5W RTU 600 MG/50 ML RTUPB IV SCH ×2 (22:17→23:55)
[2020-05-06 03:27] LABS: ABSOLUTE LYMPHOCYTES (AUTO) 0.9 10^3/uL (0.5-4.7); ABSOLUTE MONOCYTES (AUTO) 0.8 10^3/uL (0.1-1.4); ABSOLUTE NEUT (AUTO) 8.8 10^3/uL (1.7-8.2); BASOPHILS % (AUTO) 0.2 % (0-2); EOSINOPHILS % (AUTO) 0.2 % (0-6); HEMATOCRIT 33.9 % (36.0-47.0); LYMPHOCYTES % (AUTO) 8.6 % (13-45); MEAN CORPUSCULAR HEMOGLOBIN 34.9 pg (27.0-33.4); MEAN CORPUSCULAR HGB CONC 34.7 g/dL (32.0-36.0); MEAN CORPUSCULAR VOLUME 100 fl (80-97); MONOCYTES % (AUTO) 7.8 % (3-13); PLATELET COUNT 259 10^3/uL (150-450); RED BLOOD COUNT 3.38 10^6/uL (3.72-5.28); RED CELL DISTRIBUTION WIDTH 13.6 % (11.5-14.0); SEGMENTED NEUTROPHILS % (AUTO) 83.2 % (42-78); TOTAL CELLS COUNTED % (AUTO) 100 %; WHITE BLOOD COUNT 10.6 10^3/uL (4.0-10.5)
[2020-05-06 03:29] LABS: HEMOGLOBIN 11.8 g/dL (12.0-15.5)
[2020-05-06 03:44] LABS: ALBUMIN 2.8 g/dL (3.5-5.0); ALKALINE PHOSPHATASE 115 U/L (38-126); ANION GAP 7 (5-19); ASPARTATE AMINO TRANSFERASE 18 U/L (14-36); BILIRUBIN,DIRECT 0.2 mg/dL (0.0-0.4); BILIRUBIN,TOTAL 0.4 mg/dL (0.2-1.3); BLOOD UREA NITROGEN 25 mg/dL (7-20); CALCIUM 8.3 mg/dL (8.4-10.2); CARBON DIOXIDE 25 mmol/L (22-30); CHLORIDE 106 mmol/L (98-107); CHOLESTEROL 155.39 mg/dL (0-200); GLUCOSE 147 mg/dL (75-110); TOTAL PROTEIN 5.4 g/dL (6.3-8.2); TRIGLYCERIDES 62 mg/dL (<150)
[2020-05-06 03:51] LABS: CREATINE KINASE MB 1.07 ng/mL (<4.55)
[2020-05-06 03:55] LABS: DIRECT LDL 103 mg/dL (<100)
[2020-05-06 03:58] LABS: TROPONIN I < 0.012 ng/mL
[2020-05-06] MEDS: CLINDAMYCIN 600 MG/D5W RTU 600 MG/50 ML RTUPB IV SCH ×3 (06:44→21:54)
[2020-05-06] MEDS: ENOXAPARIN SODIUM INJ 40 MG/0.4 ML DISP.SYRIN SUBCUT SCH (09:15)
[2020-05-06 10:50] LABS: CREATINE KINASE MB 1.14 ng/mL (<4.55)
[2020-05-06 10:53] LABS: TROPONIN I < 0.012 ng/mL
[2020-05-06] MEDS ORDERED: (PENDING PHARMACY ID) (Albuterol Sulfate 2 PUFF) IH PRN (16:16)
[2020-05-06] MEDS ORDERED: ALBUTEROL SULFATE HFA (90 MCG/PUFF) 8 GM MDI IH PRN (16:21)
[2020-05-06] MEDS ORDERED: (PENDING PHARMACY ID) (Losartan/Hydrochlorothiazide [Hyzaar 100-12.5 Tablet] 1 TAB) PO SCH (16:30)
[2020-05-06] MEDS ORDERED: LACTULOSE PO SCH (16:30)
[2020-05-06] MEDS: VALACYCLOVIR HCL 500 MG TABLET PO SCH (16:59)
[2020-05-06] MEDS: LACTULOSE SYRUP 20 GM/30 ML UDCUP PO SCH (17:00)
[2020-05-06] MEDS: METOPROLOL TARTRATE 50 MG TABLET PO SCH (17:00)
[2020-05-06] MEDS: HYDROCHLOROTHIAZIDE 12.5 MG TABLET PO SCH (17:00)
[2020-05-06] MEDS: PANTOPRAZOLE SODIUM 40 MG TABLET.DR PO SCH (17:00)
[2020-05-06] MEDS: LOSARTAN POTASSIUM 50 MG TABLET PO SCH (17:00)
[2020-05-06] MEDS: NORMAL SALINE 1000 ML 1,000 ML IV PRN (17:01)
[2020-05-06] MEDS: FOLIC ACID 1 MG TABLET PO SCH ×2 (17:07→21:54)
[2020-05-06] MEDS: ACETAMINOPHEN WITH CODEINE #3 TABLET PO PRN (17:07)
[2020-05-06] MEDS ORDERED: FOLIC ACID PO SCH (18:00)
[2020-05-06] MEDS ORDERED: B12 PO SCH (18:00)
[2020-05-06] MEDS ORDERED: IRON PS COMPLEX PO SCH (18:00)
[2020-05-06] MEDS: IRON POLYSACCHARIDES COMPLEX 150 MG CAPSULE PO SCH ×2 (18:19→21:54)
--- NOTE | 2020-05-06 19:26 | PDOC PROGRESS REPORT ---
Subjective Progress Note for:: 05/06/20 Subjective:: Patient seen by the bedside she has many requests for different things today Reason For Visit: MRSA,SEPTICEMIA,SEPSIS Physical Exam Vital Signs: Temp Pulse Resp BP Pulse Ox 99.4 F 96 16 138/64 H 100 05/06/20 16:01 05/06/20 16:01 05/06/20 16:01 05/06/20 16:01 05/06/20 16:01 Intake & Output 05/05/20 05/06/20 05/07/20 06:59 06:59 06:59 Intake Total 1200 1200 Balance 1200 1200 Weight 68.7 kg General appearance: PRESENT: no acute distress Eye exam: PRESENT: PERRLA Respiratory exam: PRESENT: clear to auscultation franky Cardiovascular exam: PRESENT: +S1 GI/Abdominal exam: PRESENT: soft Neurological exam: PRESENT: alert Skin exam: PRESENT: abrasion, rash Results Laboratory Results: 05/06/20 03:14 05/06/20 03:14 05/05/20 05/05/20 05/05/20 20:20 20:29 20:29 WBC RBC Hgb Hct MCV MCH MCHC RDW Plt Count Seg Neutrophils % Sodium Potassium Chloride Carbon Dioxide Anion Gap BUN Creatinine Est GFR ( Amer) Glucose Lactic Acid 1.7 Calcium Phosphorus 3.5 Magnesium 2.3 Total Bilirubin AST Alkaline Phosphatase Ammonia Total Protein Albumin Triglycerides Cholesterol LDL Cholesterol Direct VLDL Cholesterol HDL Cholesterol Amylase < 30 L Lipase 33.1 TSH Free T4 Urine Color YELLOW Urine Appearance CLOUDY Urine pH 6.0 Ur Specific [place] 1.016 Urine Protein 30 H Urine Glucose (UA) 50 H Urine Ketones NEGATIVE Urine Blood SMALL H Urine Nitrite NEGATIVE Ur Leukocyte Esterase LARGE H Urine WBC (Auto) 11 Urine RBC (Auto) 4 05/05/20 05/05/20 05/06/20 20:29 20:29 03:14 WBC 10.6 H RBC 3.38 L Hgb 11.8 L D Hct 33.9 L MCV 100 H MCH 34.9 H MCHC 34.7 RDW 13.6 Plt Count 259 Seg Neutrophils % 83.2 H Sodium Potassium Chloride Carbon Dioxide Anion Gap BUN Creatinine Est GFR ( Amer) Glucose Lactic Acid Calcium Phosphorus Magnesium Total Bilirubin AST Alkaline Phosphatase Ammonia < 8.7 L Total Protein Albumin Triglycerides Cholesterol LDL Cholesterol Direct VLDL Cholesterol HDL Cholesterol Amylase Lipase TSH 2.03 Free T4 1.00 Urine Color Urine Appearance Urine pH Ur Specific [place] Urine Protein Urine Glucose (UA) Urine Ketones Urine Blood Urine Nitrite Ur Leukocyte Esterase Urine WBC (Auto) Urine RBC (Auto) 05/06/20 03:14 WBC RBC Hgb Hct MCV MCH MCHC RDW Plt Count Seg Neutrophils % Sodium 137.9 Potassium 4.0 Chloride 106 Carbon Dioxide 25 Anion Gap 7 BUN 25 H Creatinine 0.55 Est GFR ( Amer) > 60 Glucose 147 H Lactic Acid Calcium 8.3 L Phosphorus Magnesium Total Bilirubin 0.4 AST 18 Alkaline Phosphatase 115 Ammonia Total Protein 5.4 L Albumin 2.8 L Triglycerides 62 Cholesterol 155.39 LDL Cholesterol Direct 103 H VLDL Cholesterol 12.0 HDL Cholesterol 48 Amylase Lipase TSH Free T4 Urine Color Urine Appearance Urine pH Ur Specific [place] Urine Protein Urine Glucose (UA) Urine Ketones Urine Blood Urine Nitrite Ur Leukocyte Esterase Urine WBC (Auto) Urine RBC (Auto) 05/05/20 05/05/20 05/05/20 14:48 20:29 20:29 Creatine Kinase 30 CK-MB (CK-2) 1.12 Troponin I 0.016 NT-Pro-B Natriuret Pep 1260 H 05/06/20 05/06/20 05/06/20 03:14 03:14 09:00 Creatine Kinase 33 31 CK-MB (CK-2) 1.07 Troponin I < 0.012 NT-Pro-B Natriuret Pep 05/06/20 09:00 Creatine Kinase CK-MB (CK-2) 1.14 Troponin I < 0.012 NT-Pro-B Natriuret Pep Impressions: Chest X-Ray 05/05/20 14:16 IMPRESSION: Improved aeration in the left lung. No acute cardiopulmonary disease. Assessment & Plan - Diagnosis (1) MRSA (methicillin resistant Staphylococcus aureus) septicemia Is this a current diagnosis for this admission?: Yes Plan: Continue IV clindamycin, CORINE is requested to rule out endocarditis (2) Urinary tract infection Qualifiers: Urinary tract infection type: acute cystitis Hematuria presence: without hematuria Qualified Code(s): N30.00 - Acute cystitis without hematuria Is this a current diagnosis for this admission?: Yes (3) Essential (primary) hypertension Is this a current diagnosis for this admission?: Yes - Time Time Spent with patient: 25-34 minutes Level of Care: IMCU Medications reviewed and adjusted accordingly: Yes Anticipated discharge: Home Anticipated DC Timeframe: within 72 hours
[2020-05-06] MEDS: LATANOPROST 0.005% OPH SOLN 2.5 ML OU SCH (21:55)
[2020-05-06] MEDS ORDERED: BIMATOPROST OU SCH (22:00)
[2020-05-07] MEDS: ACETAMINOPHEN WITH CODEINE #3 TABLET PO PRN ×3 (02:19→21:28)
[2020-05-07] MEDS: CLINDAMYCIN 600 MG/D5W RTU 600 MG/50 ML RTUPB IV SCH ×3 (05:38→23:53)
[2020-05-07] MEDS: METOPROLOL TARTRATE 50 MG TABLET PO SCH ×2 (05:38→17:56)
[2020-05-07 06:04] LABS: HEMATOCRIT 32.4 % (36.0-47.0); HEMOGLOBIN 11.3 g/dL (12.0-15.5); MEAN CORPUSCULAR HEMOGLOBIN 34.7 pg (27.0-33.4); MEAN CORPUSCULAR HGB CONC 34.9 g/dL (32.0-36.0); MEAN CORPUSCULAR VOLUME 100 fl (80-97); PLATELET COUNT 274 10^3/uL (150-450); RED BLOOD COUNT 3.26 10^6/uL (3.72-5.28); RED CELL DISTRIBUTION WIDTH 13.8 % (11.5-14.0); WHITE BLOOD COUNT 9.2 10^3/uL (4.0-10.5)
[2020-05-07 06:30] LABS: ABSOLUTE MONOCYTES # (MANUAL) 0.6 10^3/uL (0.1-1.4); BAND NEUTROPHILS % (MANUAL) 1 % (3-5); BASOPHILS % (MANUAL) 0 % (0-2); EOSINOPHILS % (MANUAL) 2 % (0-6); LYMPHOCYTES % (MANUAL) 10 % (13-45); MONOCYTES % (MANUAL) 6 % (3-13); SEGMENTED NEUTROPHILS % (MAN) 80 % (42-78); TOTAL CELLS COUNTED 100
[2020-05-07 06:31] LABS: ANISOCYTOSIS SLIGHT; PLATELET COMMENT ADEQUATE; POIKILOCYTOSIS SLIGHT; POLYCHROMASIA SLIGHT; TEAR DROP CELLS SLIGHT
[2020-05-07] MEDS: PANTOPRAZOLE SODIUM 40 MG TABLET.DR PO SCH (09:57)
[2020-05-07] MEDS: LOSARTAN POTASSIUM 50 MG TABLET PO SCH (09:58)
[2020-05-07] MEDS: HYDROCHLOROTHIAZIDE 12.5 MG TABLET PO SCH (09:59)
[2020-05-07] MEDS: FOLIC ACID 1 MG TABLET PO SCH ×4 (10:00→21:26)
[2020-05-07] MEDS: ENOXAPARIN SODIUM INJ 40 MG/0.4 ML DISP.SYRIN SUBCUT SCH (10:00)
[2020-05-07] MEDS: DILTIAZEM HCL 120 MG CAP.SR.24H PO SCH (10:00)
[2020-05-07] MEDS: LACTULOSE SYRUP 20 GM/30 ML UDCUP PO SCH (10:00)
[2020-05-07] MEDS: IRON POLYSACCHARIDES COMPLEX 150 MG CAPSULE PO SCH ×4 (10:09→21:26)
[2020-05-07] MEDS: VALACYCLOVIR HCL 500 MG TABLET PO SCH (10:10)
[2020-05-07] MEDS: NITROFURANTOIN MONOHYD/M-CRYST 100 MG CAPSULE PO SCH ×2 (17:58→18:03)
--- NOTE | 2020-05-07 19:05 | PDOC PROGRESS REPORT ---
Subjective Progress Note for:: 05/07/20 Subjective:: Patient seen by the bedside, she has ESBL E. coli UTI, MRSA septicemia, the ESBL E. coli is sensitive to Macrobid, MRSA sensitive to clindamycin, she insisted on going home tomorrow, the last time she was admitted she left AMA despite having sepsis Reason For Visit: MRSA,SEPTICEMIA,SEPSIS Physical Exam Vital Signs: Temp Pulse Resp BP Pulse Ox 98.5 F 67 18 152/72 H 99 05/07/20 10:00 05/07/20 07:02 05/07/20 07:02 05/07/20 07:02 05/07/20 07:02 Intake & Output 05/06/20 05/07/20 05/08/20 06:59 06:59 06:59 Intake Total 1200 2080 1020 Balance 1200 2080 1020 Weight 68.7 kg 70.9 kg General appearance: PRESENT: no acute distress Eye exam: PRESENT: PERRLA Respiratory exam: PRESENT: clear to auscultation franky Cardiovascular exam: PRESENT: +S1, +S2 GI/Abdominal exam: PRESENT: soft Neurological exam: PRESENT: alert, CN II-XII grossly intact Results Laboratory Results: 05/07/20 04:54 05/06/20 03:14 05/07/20 04:54 WBC 9.2 RBC 3.26 L Hgb 11.3 L Hct 32.4 L MCV 100 H MCH 34.7 H MCHC 34.9 RDW 13.8 Plt Count 274 Seg Neutrophils % Not Reportable 05/05/20 20:20 Clean Catch Midstream Urine Culture - Final Escherichia Coli Esbl 05/05/20 05/05/20 05/05/20 14:48 20:29 20:29 Creatine Kinase 30 CK-MB (CK-2) 1.12 Troponin I 0.016 NT-Pro-B Natriuret Pep 1260 H 05/06/20 05/06/20 05/06/20 03:14 03:14 09:00 Creatine Kinase 33 31 CK-MB (CK-2) 1.07 Troponin I < 0.012 NT-Pro-B Natriuret Pep 05/06/20 09:00 Creatine Kinase CK-MB (CK-2) 1.14 Troponin I < 0.012 NT-Pro-B Natriuret Pep Impressions: Chest X-Ray 05/05/20 14:16 IMPRESSION: Improved aeration in the left lung. No acute cardiopulmonary disease. Assessment & Plan - Diagnosis (1) MRSA (methicillin resistant Staphylococcus aureus) septicemia Is this a current diagnosis for this admission?: Yes Plan: Continue IV clindamycin, CORINE is requested to rule out endocarditis (2) Essential (primary) hypertension Is this a current diagnosis for this admission?: Yes (3) UTI due to extended-spectrum beta lactamase (ESBL) producing Escherichia coli Is this a current diagnosis for this admission?: Yes Plan: The ESBL is sensitive to nitrofurantoin, start Macrobid - Time Time Spent with patient: 25-34 minutes Level of Care: IMCU Medications reviewed and adjusted accordingly: Yes Anticipated discharge: Home Anticipated DC Timeframe: within 72 hours
[2020-05-07] MEDS: NORMAL SALINE 1000 ML 1,000 ML IV PRN (21:26)
[2020-05-07] MEDS: LATANOPROST 0.005% OPH SOLN 2.5 ML OU SCH (23:54)
[2020-05-08] MEDS: ACETAMINOPHEN WITH CODEINE #3 TABLET PO PRN ×3 (04:28→21:54)
[2020-05-08] MEDS: METOPROLOL TARTRATE 50 MG TABLET PO SCH ×2 (06:54→18:45)
[2020-05-08] MEDS: CLINDAMYCIN 600 MG/D5W RTU 600 MG/50 ML RTUPB IV SCH ×3 (06:54→21:53)
[2020-05-08 06:58] LABS: HEMATOCRIT 33.8 % (36.0-47.0); MEAN CORPUSCULAR HEMOGLOBIN 35.1 pg (27.0-33.4); MEAN CORPUSCULAR HGB CONC 35.4 g/dL (32.0-36.0); MEAN CORPUSCULAR VOLUME 99 fl (80-97); PLATELET COUNT 306 10^3/uL (150-450); RED BLOOD COUNT 3.41 10^6/uL (3.72-5.28); RED CELL DISTRIBUTION WIDTH 13.8 % (11.5-14.0); WHITE BLOOD COUNT 7.7 10^3/uL (4.0-10.5)
[2020-05-08 07:42] LABS: ABSOLUTE LYMPHOCYTES# (MANUAL) 1.2 10^3/uL (0.5-4.7); ABSOLUTE MONOCYTES # (MANUAL) 0.5 10^3/uL (0.1-1.4); BASOPHILS % (MANUAL) 0 % (0-2); EOSINOPHILS % (MANUAL) 0 % (0-6); LYMPHOCYTES % (MANUAL) 15 % (13-45); MONOCYTES % (MANUAL) 6 % (3-13); SEGMENTED NEUTROPHILS % (MAN) 78 % (42-78); TOTAL CELLS COUNTED 100
[2020-05-08 07:44] LABS: ANISOCYTOSIS SLIGHT; PLATELET COMMENT ADEQUATE; POLYCHROMASIA SLIGHT
[2020-05-08 07:47] LABS: PROMYELOCYTES % (MANUAL) 1 % (0)
[2020-05-08] MEDS: LACTULOSE SYRUP 20 GM/30 ML UDCUP PO SCH (11:02)
[2020-05-08] MEDS: LOSARTAN POTASSIUM 50 MG TABLET PO SCH (11:02)
[2020-05-08] MEDS: HYDROCHLOROTHIAZIDE 12.5 MG TABLET PO SCH (11:02)
[2020-05-08] MEDS: DILTIAZEM HCL 120 MG CAP.SR.24H PO SCH (11:02)
[2020-05-08] MEDS: PANTOPRAZOLE SODIUM 40 MG TABLET.DR PO SCH (11:02)
[2020-05-08] MEDS: FOLIC ACID 1 MG TABLET PO SCH ×4 (11:03→21:53)
[2020-05-08] MEDS: VALACYCLOVIR HCL 500 MG TABLET PO SCH (11:03)
[2020-05-08] MEDS: IRON POLYSACCHARIDES COMPLEX 150 MG CAPSULE PO SCH ×4 (11:03→21:52)
[2020-05-08] MEDS: ENOXAPARIN SODIUM INJ 40 MG/0.4 ML DISP.SYRIN SUBCUT SCH (11:04)
[2020-05-08] MEDS: NITROFURANTOIN MONOHYD/M-CRYST 100 MG CAPSULE PO SCH ×2 (11:04→18:46)
[2020-05-08 12:45] LABS: PATH REVIEW PATHOLOGIST REVIEWED
[2020-05-08] MEDS: LATANOPROST 0.005% OPH SOLN 2.5 ML OU SCH (21:53)
--- NOTE | 2020-05-08 21:57 | PDOC PROGRESS REPORT ---
Subjective Progress Note for:: 05/08/20 Subjective:: Patient was seen by the bedside, she is now agreeable to rehabilitation after discharge Reason For Visit: MRSA,SEPTICEMIA,SEPSIS Physical Exam Vital Signs: Temp Pulse Resp BP Pulse Ox 98.0 F 76 18 169/69 H 98 05/08/20 17:57 05/08/20 17:57 05/08/20 17:57 05/08/20 17:57 05/08/20 17:57 Intake & Output 05/07/20 05/08/20 05/09/20 06:59 06:59 06:59 Intake Total 2079 2237 1670 Balance 2079 2237 1670 Weight 70.9 kg 70.3 kg General appearance: PRESENT: no acute distress Eye exam: PRESENT: PERRLA Respiratory exam: PRESENT: clear to auscultation franky Cardiovascular exam: PRESENT: +S1, +S2 GI/Abdominal exam: PRESENT: soft Neurological exam: PRESENT: alert Results Laboratory Results: 05/08/20 06:14 05/06/20 03:14 05/08/20 06:14 WBC 7.7 RBC 3.41 L Hgb 12.0 Hct 33.8 L MCV 99 H MCH 35.1 H MCHC 35.4 RDW 13.8 Plt Count 306 Seg Neutrophils % Not Reportable 05/05/20 05/05/20 05/05/20 14:48 20:29 20:29 Creatine Kinase 30 CK-MB (CK-2) 1.12 Troponin I 0.016 NT-Pro-B Natriuret Pep 1260 H 05/06/20 05/06/20 05/06/20 03:14 03:14 09:00 Creatine Kinase 33 31 CK-MB (CK-2) 1.07 Troponin I < 0.012 NT-Pro-B Natriuret Pep 05/06/20 09:00 Creatine Kinase CK-MB (CK-2) 1.14 Troponin I < 0.012 NT-Pro-B Natriuret Pep Impressions: Chest X-Ray 05/05/20 14:16 IMPRESSION: Improved aeration in the left lung. No acute cardiopulmonary disease. Assessment & Plan - Diagnosis (1) MRSA (methicillin resistant Staphylococcus aureus) septicemia Is this a current diagnosis for this admission?: Yes Plan: Continue IV clindamycin, CORINE is requested to rule out endocarditis (2) Essential (primary) hypertension Is this a current diagnosis for this admission?: Yes (3) UTI due to extended-spectrum beta lactamase (ESBL) producing Escherichia coli Is this a current diagnosis for this admission?: Yes Plan: The ESBL is sensitive to nitrofurantoin, continue Macrobid - Time Time Spent with patient: 25-34 minutes Level of Care: IMCU Medications reviewed and adjusted accordingly: Yes Anticipated discharge: SNF Anticipated DC Timeframe: within 72 hours
[2020-05-09] MEDS: NORMAL SALINE 1000 ML 1,000 ML IV PRN (01:27)
[2020-05-09] MEDS: CLINDAMYCIN 600 MG/D5W RTU 600 MG/50 ML RTUPB IV SCH ×3 (06:32→22:07)
[2020-05-09] MEDS: METOPROLOL TARTRATE 50 MG TABLET PO SCH ×2 (06:32→17:46)
[2020-05-09] MEDS: IRON POLYSACCHARIDES COMPLEX 150 MG CAPSULE PO SCH ×4 (09:49→22:06)
[2020-05-09] MEDS: HYDROCHLOROTHIAZIDE 12.5 MG TABLET PO SCH (09:49)
[2020-05-09] MEDS: LACTULOSE SYRUP 20 GM/30 ML UDCUP PO SCH (09:49)
[2020-05-09] MEDS: DILTIAZEM HCL 120 MG CAP.SR.24H PO SCH (09:50)
[2020-05-09] MEDS: LOSARTAN POTASSIUM 50 MG TABLET PO SCH (09:50)
[2020-05-09] MEDS: NITROFURANTOIN MONOHYD/M-CRYST 100 MG CAPSULE PO SCH ×2 (09:50→17:46)
[2020-05-09] MEDS: ENOXAPARIN SODIUM INJ 40 MG/0.4 ML DISP.SYRIN SUBCUT SCH (09:51)
[2020-05-09] MEDS: PANTOPRAZOLE SODIUM 40 MG TABLET.DR PO SCH (09:51)
[2020-05-09] MEDS: VALACYCLOVIR HCL 500 MG TABLET PO SCH (09:52)
[2020-05-09] MEDS: FOLIC ACID 1 MG TABLET PO SCH ×4 (09:53→22:06)
[2020-05-09] MEDS: ACETAMINOPHEN WITH CODEINE #3 TABLET PO PRN ×3 (09:54→22:21)
[2020-05-09] MEDS: DICYCLOMINE HCL 20 MG TABLET PO PRN (18:57)
--- NOTE | 2020-05-09 20:55 | PDOC PROGRESS REPORT ---
Subjective Progress Note for:: 05/09/20 Subjective:: Patient was seen by the bedside, she is now agreeable to rehabilitation after discharge Reason For Visit: MRSA,SEPTICEMIA,SEPSIS Physical Exam Vital Signs: Temp Pulse Resp BP Pulse Ox 98.3 F 81 18 169/80 H 98 05/09/20 17:13 05/09/20 17:13 05/09/20 17:13 05/09/20 17:13 05/09/20 17:13 Intake & Output 05/08/20 05/09/20 05/10/20 06:59 06:59 06:59 Intake Total 2238 1771 1297 Balance 2238 1771 1297 Weight 70.3 kg 71 kg General appearance: PRESENT: no acute distress Eye exam: PRESENT: PERRLA Respiratory exam: PRESENT: clear to auscultation franky Cardiovascular exam: PRESENT: +S1, +S2 GI/Abdominal exam: PRESENT: soft Neurological exam: PRESENT: alert, CN II-XII grossly intact Results Laboratory Results: 05/08/20 06:14 05/06/20 03:14 05/05/20 05/05/20 05/05/20 14:48 20:29 20:29 Creatine Kinase 30 CK-MB (CK-2) 1.12 Troponin I 0.016 NT-Pro-B Natriuret Pep 1260 H 05/06/20 05/06/20 05/06/20 03:14 03:14 09:00 Creatine Kinase 33 31 CK-MB (CK-2) 1.07 Troponin I < 0.012 NT-Pro-B Natriuret Pep 05/06/20 09:00 Creatine Kinase CK-MB (CK-2) 1.14 Troponin I < 0.012 NT-Pro-B Natriuret Pep Impressions: Chest X-Ray 05/05/20 14:16 IMPRESSION: Improved aeration in the left lung. No acute cardiopulmonary disease. Assessment & Plan - Diagnosis (1) MRSA (methicillin resistant Staphylococcus aureus) septicemia Is this a current diagnosis for this admission?: Yes Plan: Continue IV clindamycin, CORINE is requested to rule out endocarditis (2) Essential (primary) hypertension Is this a current diagnosis for this admission?: Yes (3) UTI due to extended-spectrum beta lactamase (ESBL) producing Escherichia coli Is this a current diagnosis for this admission?: Yes Plan: The ESBL is sensitive to nitrofurantoin, continue Macrobid - Time Time Spent with patient: 25-34 minutes Level of Care: IMCU Medications reviewed and adjusted accordingly: Yes Anticipated discharge: Home Anticipated DC Timeframe: within 72 hours
[2020-05-09] MEDS: LATANOPROST 0.005% OPH SOLN 2.5 ML OU SCH (22:07)
[2020-05-10] MEDS: DICYCLOMINE HCL 20 MG TABLET PO PRN ×4 (01:16→19:53)
[2020-05-10] MEDS: NORMAL SALINE 1000 ML 1,000 ML IV PRN (03:33)
[2020-05-10] MEDS: CLINDAMYCIN 600 MG/D5W RTU 600 MG/50 ML RTUPB IV SCH ×3 (05:25→23:28)
[2020-05-10] MEDS: METOPROLOL TARTRATE 50 MG TABLET PO SCH ×2 (05:25→17:19)
[2020-05-10] MEDS: ACETAMINOPHEN WITH CODEINE #3 TABLET PO PRN ×3 (05:38→19:49)
[2020-05-10] MEDS: FOLIC ACID 1 MG TABLET PO SCH ×4 (09:57→23:28)
[2020-05-10] MEDS: PANTOPRAZOLE SODIUM 40 MG TABLET.DR PO SCH (09:57)
[2020-05-10] MEDS: ENOXAPARIN SODIUM INJ 40 MG/0.4 ML DISP.SYRIN SUBCUT SCH (09:57)
[2020-05-10] MEDS: HYDROCHLOROTHIAZIDE 12.5 MG TABLET PO SCH (09:57)
[2020-05-10] MEDS: LACTULOSE SYRUP 20 GM/30 ML UDCUP PO SCH ×2 (09:57→10:07)
[2020-05-10] MEDS: VALACYCLOVIR HCL 500 MG TABLET PO SCH (09:58)
[2020-05-10] MEDS: LOSARTAN POTASSIUM 50 MG TABLET PO SCH (09:58)
[2020-05-10] MEDS: NITROFURANTOIN MONOHYD/M-CRYST 100 MG CAPSULE PO SCH ×2 (09:58→17:19)
[2020-05-10] MEDS: DILTIAZEM HCL 120 MG CAP.SR.24H PO SCH (09:58)
[2020-05-10] MEDS: IRON POLYSACCHARIDES COMPLEX 150 MG CAPSULE PO SCH ×4 (09:58→23:28)
--- NOTE | 2020-05-10 10:32 | PDOC PROGRESS REPORT ---
Subjective Progress Note for:: 05/10/20 Subjective:: Patient is currently doing well Patient was admitted for MRSA sepsis Patient having no other issues no fever no chills Reason For Visit: MRSA,SEPTICEMIA,SEPSIS Physical Exam Vital Signs: Temp Pulse Resp BP Pulse Ox 98.9 F 66 21 H 167/82 H 99 05/10/20 08:17 05/10/20 08:17 05/10/20 08:17 05/10/20 08:17 05/10/20 08:17 Intake & Output 05/09/20 05/10/20 05/11/20 06:59 06:59 06:59 Intake Total 1771 2997 Output Total 1000 Balance 1771996 Weight 71 kg 71 kg General appearance: PRESENT: no acute distress, well-developed, well-nourished Head exam: PRESENT: atraumatic, normocephalic Eye exam: PRESENT: conjunctiva pink, EOMI, PERRLA. ABSENT: scleral icterus Ear exam: PRESENT: normal external ear exam Mouth exam: PRESENT: moist, tongue midline Neck exam: PRESENT: full ROM. ABSENT: carotid bruit, JVD, lymphadenopathy, thyromegaly Respiratory exam: PRESENT: clear to auscultation franky Cardiovascular exam: PRESENT: RRR. ABSENT: diastolic murmur, rubs, systolic murmur Pulses: PRESENT: normal dorsalis pedis pul, +2 pedal pulses bilateral Vascular exam: PRESENT: normal capillary refill GI/Abdominal exam: PRESENT: normal bowel sounds, soft. ABSENT: distended, guarding, mass, organolmegaly, rebound, tenderness Rectal exam: PRESENT: deferred Neurological exam: PRESENT: alert, awake, oriented to person, oriented to place, oriented to time, oriented to situation, CN II-XII grossly intact. ABSENT: m otor sensory deficit Psychiatric exam: PRESENT: appropriate affect, normal mood. ABSENT: homicidal ideation, suicidal ideation Skin exam: PRESENT: dry, intact, warm. ABSENT: cyanosis, rash Results Laboratory Results: 05/08/20 06:14 05/06/20 03:14 05/05/20 05/05/20 05/05/20 14:48 20:29 20:29 Creatine Kinase 30 CK-MB (CK-2) 1.12 Troponin I 0.016 NT-Pro-B Natriuret Pep 1260 H 05/06/20 05/06/20 05/06/20 03:14 03:14 09:00 Creatine Kinase 33 31 CK-MB (CK-2) 1.07 Troponin I < 0.012 NT-Pro-B Natriuret Pep 05/06/20 09:00 Creatine Kinase CK-MB (CK-2) 1.14 Troponin I < 0.012 NT-Pro-B Natriuret Pep Impressions: Chest X-Ray 05/05/20 14:16 IMPRESSION: Improved aeration in the left lung. No acute cardiopulmonary disease. Assessment & Plan - Diagnosis (1) MRSA (methicillin resistant Staphylococcus aureus) septicemia Is this a current diagnosis for this admission?: Yes Plan: Continue IV clindamycin, CORINE is requested to rule out endocarditis (2) UTI due to extended-spectrum beta lactamase (ESBL) producing Escherichia coli Is this a current diagnosis for this admission?: Yes Plan: The ESBL is sensitive to nitrofurantoin, continue Macrobid (3) HTN (hypertension) Qualifiers: Hypertension type: essential hypertension Qualified Code(s): I10 - Essential (primary) hypertension Is this a current diagnosis for this admission?: Yes (4) Essential (primary) hypertension Is this a current diagnosis for this admission?: Yes - Time Time Spent with patient: 15-24 minutes Level of Care: IMCU Medications reviewed and adjusted accordingly: Yes Anticipated discharge: Other Anticipated DC Timeframe: Other - Plan Summary Plan Summary: Continues to current medications patient scheduled for CORINE on Tuesday
[2020-05-10] MEDS: LATANOPROST 0.005% OPH SOLN 2.5 ML OU SCH (23:28)
[2020-05-11] MEDS: ACETAMINOPHEN WITH CODEINE #3 TABLET PO PRN ×4 (01:49→23:05)
[2020-05-11] MEDS: DICYCLOMINE HCL 20 MG TABLET PO PRN ×4 (01:49→23:06)
[2020-05-11] MEDS: METOPROLOL TARTRATE 50 MG TABLET PO SCH ×2 (06:02→17:24)
[2020-05-11] MEDS: CLINDAMYCIN 600 MG/D5W RTU 600 MG/50 ML RTUPB IV SCH ×3 (06:02→22:24)
--- NOTE | 2020-05-11 09:55 | PDOC PROGRESS REPORT ---
Subjective Progress Note for:: 05/11/20 Subjective:: Patient is currently doing well Patient was admitted for MRSA sepsis Patient having no other issues no fever no chills Reason For Visit: MRSA,SEPTICEMIA,SEPSIS Physical Exam Vital Signs: Temp Pulse Resp BP Pulse Ox 98.1 F 67 18 136/68 H 98 05/11/20 08:51 05/11/20 08:51 05/11/20 08:51 05/11/20 08:51 05/11/20 08:51 Intake & Output 05/10/20 05/11/20 05/12/20 06:59 06:59 06:59 Intake Total 3047 1928 Output Total 1000 1350 Balance 2047 578 Weight 71 kg 67.8 kg General appearance: PRESENT: no acute distress, well-developed, well-nourished Head exam: PRESENT: atraumatic, normocephalic Eye exam: PRESENT: conjunctiva pink, EOMI, PERRLA. ABSENT: scleral icterus Ear exam: PRESENT: normal external ear exam Mouth exam: PRESENT: moist, tongue midline Neck exam: PRESENT: full ROM. ABSENT: carotid bruit, JVD, lymphadenopathy, thyromegaly Respiratory exam: PRESENT: clear to auscultation franky Cardiovascular exam: PRESENT: RRR. ABSENT: diastolic murmur, rubs, systolic murmur Pulses: PRESENT: normal dorsalis pedis pul, +2 pedal pulses bilateral Vascular exam: PRESENT: normal capillary refill GI/Abdominal exam: PRESENT: normal bowel sounds, soft. ABSENT: distended, guarding, mass, organolmegaly, rebound, tenderness Rectal exam: PRESENT: deferred Neurological exam: PRESENT: alert, awake, oriented to person, oriented to place, oriented to time, oriented to situation, CN II-XII grossly intact. ABSENT: motor sensory deficit Psychiatric exam: PRESENT: appropriate affect, normal mood. ABSENT: homicidal ideation, suicidal ideation Skin exam: PRESENT: dry, intact, warm. ABSENT: cyanosis, rash Results Laboratory Results: 05/08/20 06:14 05/06/20 03:14 05/05/20 17:10 Blood Blood Culture - Final NO GROWTH IN 5 DAYS 05/05/20 14:48 Blood Blood Culture - Final NO GROWTH IN 5 DAYS 05/05/20 05/05/20 05/05/20 14:48 20:29 20:29 Creatine Kinase 30 CK-MB (CK-2) 1.12 Troponin I 0.016 NT-Pro-B Natriuret Pep 1260 H 05/06/20 05/06/20 05/06/20 03:14 03:14 09:00 Creatine Kinase 33 31 CK-MB (CK-2) 1.07 Troponin I < 0.012 NT-Pro-B Natriuret Pep 05/06/20 09:00 Creatine Kinase CK-MB (CK-2) 1.14 Troponin I < 0.012 NT-Pro-B Natriuret Pep Impressions: Chest X-Ray 05/05/20 14:16 IMPRESSION: Improved aeration in the left lung. No acute cardiopulmonary disease. Assessment & Plan - Diagnosis (1) MRSA (methicillin resistant Staphylococcus aureus) septicemia Is this a current diagnosis for this admission?: Yes (2) UTI due to extended-spectrum beta lactamase (ESBL) producing Escherichia coli Is this a current diagnosis for this admission?: Yes (3) HTN (hypertension) Qualifiers: Hypertension type: essential hypertension Qualified Code(s): I10 - Ess ential (primary) hypertension Is this a current diagnosis for this admission?: Yes (4) Essential (primary) hypertension Is this a current diagnosis for this admission?: Yes - Time Time Spent with patient: 15-24 minutes Level of Care: IMCU Medications reviewed and adjusted accordingly: Yes Anticipated discharge: Other Anticipated DC Timeframe: Other - Plan Summary Plan Summary: Continues to current medications
[2020-05-11] MEDS: HYDROCHLOROTHIAZIDE 12.5 MG TABLET PO SCH (11:32)
[2020-05-11] MEDS: DILTIAZEM HCL 120 MG CAP.SR.24H PO SCH (11:33)
[2020-05-11] MEDS: FOLIC ACID 1 MG TABLET PO SCH ×4 (11:33→22:25)
[2020-05-11] MEDS: LOSARTAN POTASSIUM 50 MG TABLET PO SCH (11:33)
[2020-05-11] MEDS: LACTULOSE SYRUP 20 GM/30 ML UDCUP PO SCH (11:34)
[2020-05-11] MEDS: PANTOPRAZOLE SODIUM 40 MG TABLET.DR PO SCH (11:34)
[2020-05-11] MEDS: IRON POLYSACCHARIDES COMPLEX 150 MG CAPSULE PO SCH ×4 (11:36→22:35)
[2020-05-11] MEDS: ENOXAPARIN SODIUM INJ 40 MG/0.4 ML DISP.SYRIN SUBCUT SCH (11:37)
[2020-05-11] MEDS: VALACYCLOVIR HCL 500 MG TABLET PO SCH (11:37)
[2020-05-11] MEDS: NITROFURANTOIN MONOHYD/M-CRYST 100 MG CAPSULE PO SCH ×2 (11:38→17:24)
[2020-05-11] MEDS: NORMAL SALINE 1000 ML 1,000 ML IV PRN (22:24)
[2020-05-11] MEDS: LATANOPROST 0.005% OPH SOLN 2.5 ML OU SCH (22:25)
[2020-05-12] MEDS: CLINDAMYCIN 600 MG/D5W RTU 600 MG/50 ML RTUPB IV SCH ×2 (06:24→13:20)
[2020-05-12] MEDS: METOPROLOL TARTRATE 50 MG TABLET PO SCH ×2 (06:25→18:59)
[2020-05-12] MEDS: LACTULOSE SYRUP 20 GM/30 ML UDCUP PO SCH (09:49)
[2020-05-12] MEDS: DILTIAZEM HCL 120 MG CAP.SR.24H PO SCH (09:53)
[2020-05-12] MEDS: FOLIC ACID 1 MG TABLET PO SCH ×4 (09:54→21:12)
[2020-05-12] MEDS: LOSARTAN POTASSIUM 50 MG TABLET PO SCH (09:54)
[2020-05-12] MEDS: HYDROCHLOROTHIAZIDE 12.5 MG TABLET PO SCH (09:54)
[2020-05-12] MEDS: IRON POLYSACCHARIDES COMPLEX 150 MG CAPSULE PO SCH ×4 (09:54→21:12)
[2020-05-12] MEDS: NITROFURANTOIN MONOHYD/M-CRYST 100 MG CAPSULE PO SCH ×2 (09:54→18:59)
[2020-05-12] MEDS: PANTOPRAZOLE SODIUM 40 MG TABLET.DR PO SCH (09:55)
[2020-05-12] MEDS: CYANOCOBALAMIN (VITAMIN B-12) INJ 1000 MCG/1 ML VIAL IM SCH (09:55)
[2020-05-12] MEDS: ENOXAPARIN SODIUM INJ 40 MG/0.4 ML DISP.SYRIN SUBCUT SCH (09:55)
[2020-05-12] MEDS: VALACYCLOVIR HCL 500 MG TABLET PO SCH (09:55)
[2020-05-12] MEDS: ACETAMINOPHEN WITH CODEINE #3 TABLET PO PRN ×2 (12:34→18:59)
[2020-05-12] MEDS: DICYCLOMINE HCL 20 MG TABLET PO PRN ×2 (12:34→18:59)
--- NOTE | 2020-05-12 20:50 | PDOC PROGRESS REPORT ---
Subjective Progress Note for:: 05/12/20 Subjective:: Patient was seen by the bedside,She complains of abdominal pain/cramping Reason For Visit: MRSA,SEPTICEMIA,SEPSIS Physical Exam Vital Signs: Temp Pulse Resp BP Pulse Ox 97.5 F 73 18 168/91 H 98 05/12/20 12:24 05/12/20 19:00 05/12/20 12:24 05/12/20 12:24 05/12/20 12:24 Intake & Output 05/11/20 05/12/20 05/13/20 06:59 06:59 06:59 Intake Total 2180 720 550 Output Total 1350 1460 200 Balance 830 -740 350 Weight 67.8 kg 67.9 kg General appearance: PRESENT: no acute distress Eye exam: PRESENT: PERRLA Respiratory exam: PRESENT: clear to auscultation franky Cardiovascular exam: PRESENT: +S1, +S2 GI/Abdominal exam: PRESENT: soft Neurological exam: PRESENT: alert Results Laboratory Results: 05/08/20 06:14 05/06/20 03:14 05/05/20 05/05/20 05/05/20 14:48 20:29 20:29 Creatine Kinase 30 CK-MB (CK-2) 1.12 Troponin I 0.016 NT-Pro-B Natriuret Pep 1260 H 05/06/20 05/06/20 05/06/20 03:14 03:14 09:00 Creatine Kinase 33 31 CK-MB (CK-2) 1.07 Troponin I < 0.012 NT-Pro-B Natriuret Pep 05/06/20 09:00 Creatine Kinase CK-MB (CK-2) 1.14 Troponin I < 0.012 NT-Pro-B Natriuret Pep Impressions: Chest X-Ray 05/05/20 14:16 IMPRESSION: Improved aeration in the left lung. No acute cardiopulmonary disease. Assessment & Plan - Diagnosis (1) MRSA (methicillin resistant Staphylococcus aureus) septicemia Is this a current diagnosis for this admission?: Yes Plan: Continue IV antibiotic (2) Essential (primary) hypertension Is this a current diagnosis for this admission?: Yes (3) UTI due to extended-spectrum beta lactamase (ESBL) producing Escherichia coli Is this a current diagnosis for this admission?: Yes - Time Time Spent with patient: 25-34 minutes Level of Care: IMCU Medications reviewed and adjusted accordingly: Yes Anticipated discharge: Home Anticipated DC Timeframe: within 72 hours
[2020-05-12] MEDS: LATANOPROST 0.005% OPH SOLN 2.5 ML OU SCH (21:13)
[2020-05-13] MEDS: ACETAMINOPHEN WITH CODEINE #3 TABLET PO PRN ×4 (01:04→21:23)
[2020-05-13] MEDS: NORMAL SALINE 1000 ML 1,000 ML IV PRN (01:04)
[2020-05-13] MEDS: DICYCLOMINE HCL 20 MG TABLET PO PRN ×4 (01:14→21:23)
[2020-05-13] MEDS: METOPROLOL TARTRATE 50 MG TABLET PO SCH ×2 (05:29→17:20)
[2020-05-13] MEDS: FOLIC ACID 1 MG TABLET PO SCH ×4 (09:22→21:21)
[2020-05-13] MEDS: DILTIAZEM HCL 120 MG CAP.SR.24H PO SCH (09:22)
[2020-05-13] MEDS: LACTULOSE SYRUP 20 GM/30 ML UDCUP PO SCH (09:22)
[2020-05-13] MEDS: HYDROCHLOROTHIAZIDE 12.5 MG TABLET PO SCH (09:22)
[2020-05-13] MEDS: LOSARTAN POTASSIUM 50 MG TABLET PO SCH (09:22)
[2020-05-13] MEDS: IRON POLYSACCHARIDES COMPLEX 150 MG CAPSULE PO SCH ×4 (09:23→21:22)
[2020-05-13] MEDS: NITROFURANTOIN MONOHYD/M-CRYST 100 MG CAPSULE PO SCH ×2 (09:23→17:20)
[2020-05-13] MEDS: PANTOPRAZOLE SODIUM 40 MG TABLET.DR PO SCH (09:23)
[2020-05-13] MEDS: VALACYCLOVIR HCL 500 MG TABLET PO SCH (09:24)
[2020-05-13] MEDS: ENOXAPARIN SODIUM INJ 40 MG/0.4 ML DISP.SYRIN SUBCUT SCH (09:39)
[2020-05-13] MEDS ORDERED: PROPOFOL INJ 200 MG/20 ML VIAL IV ONE (12:17)
--- NOTE | 2020-05-13 15:08 | XCELERA REPORT ---
Study ID: [id number] [id number] Transesophageal Echocardiogram Report Name: MICHAEL CAMEJO Age: 69 yrs Gender: Female : 1950 Patient Status: Inpatient Patient Location: [address] [place] [address] Study Date: 05/13/2020 11:23 AM History: Bacteremia Reason For Study: MRSA SEPTICEMIA Ordering Physician: ARACELI CORTEZ Performed By: Ruthann Delgado Interpretation Summary Left ventricular systolic function is low normal. Ejection Fraction = 50-55%. The right ventricular systolic function is normal. There is trace mitral regurgitation. Small echogenic mass on right aortic cusp highly suspicios for vegetation. No hemodynamically significant valvular aortic stenosis. No aortic regurgitation is present. There is no pericardial effusion. Left Ventricle The left ventricle is normal in size. Left ventricular systolic function is low normal. Ejection Fraction = 50-55%. Right Ventricle The right ventricle is grossly normal size. The right ventricular systolic function is normal. Atria No left atrial mass or thrombus visualized. The left atrium is mildly dilated. Right atrial size is normal. Mitral Valve The mitral valve is grossly normal. There is no vegetation seen on the mitral valve. There is no mitral valve stenosis. There is trace mitral regurgitation. Aortic Valve The aortic valve is trileaflet. The aortic valve opens well. There is a small vegetation or mass on the aortic valve. Small echogenic mass on right aortic cusp highly suspicios for vegetation. No hemodynamically significant valvular aortic stenosis. No aortic regurgitation is present. Pulmonic Valve The pulmonic valve is not well seen, but is grossly normal. There is no pulmonic valvular regurgitation. Arteries The aortic root is not well visualized. Pericardium There is no pericardial effusion. : ARACELI CORTEZ Anil
[2020-05-13] MEDS ORDERED: VANCOMYCIN HCL 0 MG in DEXTROSE 5%-WATER 250 ML IV NR (19:45)
--- NOTE | 2020-05-13 19:49 | PDOC PROGRESS REPORT ---
Subjective Progress Note for:: 05/13/20 Subjective:: . Patient seen by the bedside, she had trans-esophageal echocardiogram, it demonstrated vegetation in the aortic valve, she has MRSA endocarditis, she was initially on IV clindamycin this to be transitioned to vancomycin for 6 weeks Reason For Visit: MRSA,SEPTICEMIA,SEPSIS Physical Exam Vital Signs: Temp Pulse Resp BP Pulse Ox 98.0 F 73 18 130/60 H 97 05/13/20 16:37 05/13/20 19:00 05/13/20 16:37 05/13/20 16:37 05/13/20 16:37 Intake & Output 05/12/20 05/13/20 05/14/20 06:59 06:59 06:59 Intake Total 853 810 437 Output Total 1460 200 Balance -607 610 437 Weight 67.9 kg 69.5 kg General appearance: PRESENT: no acute distress Eye exam: PRESENT: PERRLA Respiratory exam: PRESENT: clear to auscultation franky Cardiovascular exam: PRESENT: +S1, +S2 GI/Abdominal exam: PRESENT: soft Neurological exam: PRESENT: alert, CN II-XII grossly intact Results Laboratory Results: 05/08/20 06:14 05/06/20 03:14 05/05/20 05/05/20 05/05/20 14:48 20:29 20:29 Creatine Kinase 30 CK-MB (CK-2) 1.12 Troponin I 0.016 NT-Pro-B Natriuret Pep 1260 H 05/06/20 05/06/20 05/06/20 03:14 03:14 09:00 Creatine Kinase 33 31 CK-MB (CK-2) 1.07 Troponin I < 0.012 NT-Pro-B Natriuret Pep 05/06/20 09:00 Creatine Kinase CK-MB (CK-2) 1.14 Troponin I < 0.012 NT-Pro-B Natriuret Pep Impressions: Chest X-Ray 05/05/20 14:16 IMPRESSION: Improved aeration in the left lung. No acute cardiopulmonary disease. 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, start vancomycin for 6 weeks (2) MRSA (methicillin resistant Staphylococcus aureus) septicemia Is this a current diagnosis for this admission?: Yes Plan: Continue IV antibiotic (3) Essential (primary) hypertension Is this a current diagnosis for this admission?: Yes (4) UTI due to extended-spectrum beta lactamase (ESBL) producing Escherichia coli Is this a current diagnosis for this admission?: Yes - Time Time Spent with patient: 35 or more minutes Level of Care: MEDICAL Anticipated discharge: Home Anticipated DC Timeframe: within 72 hours - Inpatient Certification Based on my medical assessment, after consideration of the patient's comorbidities, presenting symptoms, or acuity I expect that the services needed warrant INPATIENT care.: No I certify that my determination is in accordance with my understanding of Medicare's requirements for reasonable and necessary INPATIENT services [42 CFR 412.3e].: No
[2020-05-13] MEDS: LATANOPROST 0.005% OPH SOLN 2.5 ML OU SCH (21:23)
[2020-05-13] MEDS ORDERED: CLINDAMYCIN PHOSPHATE 750 MG in DEXTROSE 5%-WATER 100 ML IV SCH (22:00)
[2020-05-13] MEDS ORDERED: CLINDAMYCIN 600 MG/D5W RTU 600 MG/50 ML RTUPB IV SCH (22:00)
[2020-05-13 22:41] LABS: ABSOLUTE MONOCYTES (AUTO) 0.9 10^3/uL (0.1-1.4); ABSOLUTE NEUT (AUTO) 9.2 10^3/uL (1.7-8.2); BASOPHILS % (AUTO) 0.1 % (0-2); EOSINOPHILS % (AUTO) 0.4 % (0-6); HEMATOCRIT 36.3 % (36.0-47.0); HEMOGLOBIN 12.5 g/dL (12.0-15.5); LYMPHOCYTES % (AUTO) 9.4 % (13-45); MEAN CORPUSCULAR HEMOGLOBIN 34.4 pg (27.0-33.4); MEAN CORPUSCULAR HGB CONC 34.5 g/dL (32.0-36.0); MEAN CORPUSCULAR VOLUME 100 fl (80-97); MONOCYTES % (AUTO) 8.3 % (3-13); PLATELET COUNT 447 10^3/uL (150-450); RED BLOOD COUNT 3.64 10^6/uL (3.72-5.28); RED CELL DISTRIBUTION WIDTH 13.8 % (11.5-14.0); SEGMENTED NEUTROPHILS % (AUTO) 81.8 % (42-78); TOTAL CELLS COUNTED % (AUTO) 100 %; WHITE BLOOD COUNT 11.2 10^3/uL (4.0-10.5)
[2020-05-13 22:49] LABS: ALBUMIN 3.4 g/dL (3.5-5.0); ALKALINE PHOSPHATASE 107 U/L (38-126); ANION GAP 8 (5-19); ASPARTATE AMINO TRANSFERASE 17 U/L (14-36); BILIRUBIN,DIRECT 0.3 mg/dL (0.0-0.4); BILIRUBIN,TOTAL 0.3 mg/dL (0.2-1.3); BLOOD UREA NITROGEN 22 mg/dL (7-20); CALCIUM 8.9 mg/dL (8.4-10.2); CARBON DIOXIDE 25 mmol/L (22-30); CHLORIDE 105 mmol/L (98-107); GLUCOSE 131 mg/dL (75-110); POTASSIUM 4.2 mmol/L (3.6-5.0); TOTAL PROTEIN 6.1 g/dL (6.3-8.2)
[2020-05-13] MEDS: VANCOMYCIN HCL 500 MG in DEXTROSE 5%-WATER 100 ML IV SCH (22:55)
[2020-05-14] MEDS: DICYCLOMINE HCL 20 MG TABLET PO PRN ×2 (03:34→10:02)
[2020-05-14] MEDS: ACETAMINOPHEN WITH CODEINE #3 TABLET PO PRN ×3 (03:34→22:02)
[2020-05-14] MEDS: METOPROLOL TARTRATE 50 MG TABLET PO SCH ×2 (05:49→18:09)
[2020-05-14] MEDS: NORMAL SALINE 1000 ML 1,000 ML IV PRN (06:52)
[2020-05-14] MEDS: LOSARTAN POTASSIUM 50 MG TABLET PO SCH (10:00)
[2020-05-14] MEDS: PANTOPRAZOLE SODIUM 40 MG TABLET.DR PO SCH (10:01)
[2020-05-14] MEDS: FOLIC ACID 1 MG TABLET PO SCH ×4 (10:01→22:05)
[2020-05-14] MEDS: HYDROCHLOROTHIAZIDE 12.5 MG TABLET PO SCH (10:01)
[2020-05-14] MEDS: DILTIAZEM HCL 120 MG CAP.SR.24H PO SCH (10:01)
[2020-05-14] MEDS: NITROFURANTOIN MONOHYD/M-CRYST 100 MG CAPSULE PO SCH ×2 (10:01→22:02)
[2020-05-14] MEDS: VALACYCLOVIR HCL 500 MG TABLET PO SCH (10:02)
[2020-05-14] MEDS: ENOXAPARIN SODIUM INJ 40 MG/0.4 ML DISP.SYRIN SUBCUT SCH (10:02)
[2020-05-14] MEDS: IRON POLYSACCHARIDES COMPLEX 150 MG CAPSULE PO SCH ×4 (10:02→22:06)
[2020-05-14] MEDS: LACTULOSE SYRUP 20 GM/30 ML UDCUP PO SCH (10:03)
[2020-05-14] MEDS: VANCOMYCIN HCL 500 MG in DEXTROSE 5%-WATER 100 ML IV SCH ×2 (10:22→22:04)
--- NOTE | 2020-05-14 13:37 | Progress Note ---
Provider Note Provider Note: ID Note- I was asked by Pharmacy to review this chart. The patient has a history of MRSA bacteremia earlier this month. Repeat blood cultures on May 06 are no growth, but previous cultures grew MRSA that was sensitive to clindamycin, which was initially used for treatment. The patient is now receiving vancomycin. TTE was negative for valvular vegetations, but a CORINE shows a density on the aortic valve that is suggestive of a vegetation. There was no evidence of aortic regurgitation on the CORINE. Recommendations: Based on the CORINE, would treat for suspected endocarditis with vancomycin for a total of 4-6 weeks from the first negative blood cultures. Recommend contacting CT surgery to consider follow up appointment as an outpatient. The patient may eventually need aortic valve replacement if aortic insufficiency develops. Patient will need a PICC line. Would recommend vancomycin trough value of about 15 mcg/ml. Call me if there are questions. Lang Irwin MD Pager: [phone]
--- NOTE | 2020-05-14 15:50 | RADIOLOGY REPORT (SQ) ---
EXAM DESCRIPTION: PICC INSERTION IMAGES COMPLETED DATE/TIME: 05/14/2020 3:32 pm REASON FOR STUDY: needs iv antibiotics longer term COMPARISON: None. FLUOROSCOPY TIME: 0.7 minutes 2 images saved to PACS. TECHNIQUE: Fluoroscopic and ultrasound guided PICC placement. LIMITATIONS: None. PROCEDURE: After written consent and assessment were obtained, the patient was brought into the fluo roscopy room and placed supine on the table. Ultrasound evaluation of potential access sites were per formed. After successfully identifying a patent left basilic vein, the left arm was prepped and drape d in a sterile fashion along with the ultrasound probe. The entry site was anesthetized with 1% lidoc yesenia. A 21 gauge 7 cm needle was advanced through the skin and into the basilic vein under live ultra sound guidance. An ultrasound image was saved to PACS confirming access site. A .018 guide wire was then inserted through the needle and into the venous system. The needle was then removed and an 11 b lade scalpel was used to make a 1cm skin incision. A 5 fr peel-away sheath was advanced over the wir e and into the venous system. A measurement was then made using the existing wire and live fluoroscop ic guidance. The wire was then removed and trimmed. The PICC was advanced through the peel-away sheat h and into the venous system. The peel-away sheath was removed and the catheter was adhered to the pa tients arm with a stat lock. The catheter was then aspirated and flushed and a sterile bandage was pl aced over the access site. A fluoroscopic spot image was saved to PACS confirming the catheter tip w ithin the superior vena cava. IMPRESSION: SUCCESSFUL PLACEMENT OF A 5 FR DUAL LUMEN 43 CM PICC IN THE LEFT BASILIC VEIN. COMMENT: Patient medication list reviewed: Yes- Quality ID# [id number]:Eligible professional attests to doc umenting in the medical record they obtained, updated, or reviewed the patient's current medications. . Quality ID 145: Final reports for procedures using fluoroscopy that document radiation exposure alberto mary, or exposure time and number of fluorographic images (if radiation exposure indices are not avail able) Quality ID #76: The patient was prepped and draped using maximum sterile barrier technique including cap, mask, sterile gown, sterile gloves, a large sterile sheet, hand hygiene, and 2% Chlorhexidine fo r cutaneous antisepsis. When ultrasound is used, sterile ultrasound techniques are followed requiring sterile gel and sterile probes. TECHNICAL DOCUMENTATION: JOB ID: [id number] [employer]- All Rights Reserved rev-01/06 Reading location - IP/workstation name: [email or web address]
--- NOTE | 2020-05-14 16:58 | PDOC PROGRESS REPORT ---
Subjective Progress Note for:: 05/14/20 Subjective:: Patient seen by the bedside, she has aortic valve endocarditis, on IV vancomycin Reason For Visit: MRSA,SEPTICEMIA,SEPSIS Physical Exam Vital Signs: Temp Pulse Resp BP Pulse Ox 97.5 F 68 18 164/84 H 98 05/14/20 10:00 05/14/20 14:00 05/14/20 08:08 05/14/20 08:08 05/14/20 08:08 Intake & Output 05/13/20 05/14/20 05/15/20 06:59 06:59 06:59 Intake Total 1100 537 Output Total 200 Balance 900 537 Weight 69.5 kg 67.1 kg General appearance: PRESENT: no acute distress Eye exam: PRESENT: PERRLA Respiratory exam: PRESENT: clear to auscultation franky Cardiovascular exam: PRESENT: +S1, +S2, systolic murmur GI/Abdominal exam: PRESENT: soft Neurological exam: PRESENT: alert Results Laboratory Results: 05/13/20 21:42 05/14/20 05:51 05/13/20 05/13/20 05/14/20 21:42 21:42 05:51 WBC 11.2 H RBC 3.64 L Hgb 12.5 Hct 36.3 MCV 100 H MCH 34.4 H MCHC 34.5 RDW 13.8 Plt Count 447 Seg Neutrophils % 81.8 H Sodium 138.2 Potassium 4.2 Chloride 105 Carbon Dioxide 25 Anion Gap 8 BUN 22 H Creatinine 0.60 0.44 L Est GFR ( Amer) > 60 > 60 Glucose 131 H Calcium 8.9 Total Bilirubin 0.3 AST 17 Alkaline Phosphatase 107 Total Protein 6.1 L Albumin 3.4 L 05/05/20 05/05/20 05/05/20 14:48 20:29 20:29 Creatine Kinase 30 CK-MB (CK-2) 1.12 Troponin I 0.016 NT-Pro-B Natriuret Pep 1260 H 05/06/20 05/06/20 05/06/20 03:14 03:14 09:00 Creatine Kinase 33 31 CK-MB (CK-2) 1.07 Troponin I < 0.012 NT-Pro-B Natriuret Pep 05/06/20 09:00 Creatine Kinase CK-MB (CK-2) 1.14 Troponin I < 0.012 NT-Pro-B Natriuret Pep Impressions: Chest X-Ray 05/05/20 14:16 IMPRESSION: Improved aeration in the left lung. No acute cardiopulmonary disease. PICC Line Insertion 05/14/20 00:00 IMPRESSION: SUCCESSFUL PLACEMENT OF A 5 FR DUAL LUMEN 43 CM PICC IN THE LEFT BASILIC VEIN. 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, continue vancomycin for 6 weeks (2) MRSA (methicillin resistant Staphylococcus aureus) septicemia Is this a current diagnosis for this admission?: Yes Plan: Continue IV antibiotic (3) Essential (primary) hypertension Is this a current diagnosis for this admission?: Yes (4) UTI due to extended-spectrum beta lactamase (ESBL) producing Escherichia coli Is this a current diagnosis for this admission?: Yes Plan: on macrobid - Time Time Spent with patient: 25-34 minutes Level of Care: IMCU Medications reviewed and adjusted accordingly: Yes Anticipated discharge: SNF Anticipated DC Timeframe: within 48 hours - Inpatient Certification Based on my medical assessment, after consideration of the patient's comorbidities, presenting symptoms, or acuity I expect that the services needed warrant INPATIENT care.: Yes I certify that my determination is in accordance with my understanding of Medicare's requirements for reasonable and necessary INPATIENT services [42 CFR 412.3e].: Yes
[2020-05-14] MEDS: HYDROCODONE/ACETAMINOPHEN 10-325 MG TABLET PO PRN (18:09)
[2020-05-14] MEDS: LATANOPROST 0.005% OPH SOLN 2.5 ML OU SCH (22:03)
[2020-05-15] MEDS: HYDROCODONE/ACETAMINOPHEN 10-325 MG TABLET PO PRN ×4 (01:58→21:20)
[2020-05-15] MEDS: METOPROLOL TARTRATE 50 MG TABLET PO SCH ×3 (06:56→18:02)
[2020-05-15] MEDS: NORMAL SALINE 1000 ML 1,000 ML IV PRN (08:22)
[2020-05-15] MEDS: HYDROCHLOROTHIAZIDE 12.5 MG TABLET PO SCH (11:08)
[2020-05-15] MEDS: IRON POLYSACCHARIDES COMPLEX 150 MG CAPSULE PO SCH ×4 (11:08→21:20)
[2020-05-15] MEDS: LOSARTAN POTASSIUM 50 MG TABLET PO SCH (11:09)
[2020-05-15] MEDS: DILTIAZEM HCL 120 MG CAP.SR.24H PO SCH (11:09)
[2020-05-15] MEDS: VALACYCLOVIR HCL 500 MG TABLET PO SCH (11:10)
[2020-05-15] MEDS: FOLIC ACID 1 MG TABLET PO SCH ×5 (11:10→21:20)
[2020-05-15] MEDS: PANTOPRAZOLE SODIUM 40 MG TABLET.DR PO SCH (11:11)
[2020-05-15] MEDS: VANCOMYCIN HCL 500 MG in DEXTROSE 5%-WATER 100 ML IV SCH (11:11)
[2020-05-15] MEDS: NITROFURANTOIN MONOHYD/M-CRYST 100 MG CAPSULE PO SCH ×2 (11:11→18:02)
[2020-05-15] MEDS: LACTULOSE SYRUP 20 GM/30 ML UDCUP PO SCH (11:12)
[2020-05-15 11:35] LABS: VANCOMYCIN,TROUGH 8.3 ug/mL (5.0-20.0)
[2020-05-15] MEDS: ENOXAPARIN SODIUM INJ 40 MG/0.4 ML DISP.SYRIN SUBCUT SCH (12:25)
[2020-05-15 15:59] LABS: VANCOMYCIN,TROUGH 15.3 ug/mL (5.0-20.0)
[2020-05-15] MEDS: VANCOMYCIN HCL 750 MG in DEXTROSE 5%-WATER 250 ML IV SCH ×2 (16:30→21:19)
--- NOTE | 2020-05-15 20:52 | PDOC PROGRESS REPORT ---
Subjective Progress Note for:: 05/15/20 Subjective:: Patient seen by the bedside, she has aortic valve endocarditis, on IV vancomycin Reason For Visit: MRSA,SEPTICEMIA,SEPSIS Physical Exam Vital Signs: Temp Pulse Resp BP Pulse Ox 98.7 F 92 18 178/79 H 98 05/15/20 16:19 05/15/20 19:00 05/15/20 16:19 05/15/20 16:19 05/15/20 16:19 Intake & Output 05/14/20 05/15/20 05/16/20 06:59 06:59 06:59 Intake Total 537 1000 1805 Balance 537 1000 1805 Weight 67.1 kg 65.4 kg 65.4 kg General appearance: PRESENT: no acute distress, well-developed, well-nourished Head exam: PRESENT: atraumatic, normocephalic Eye exam: PRESENT: conjunctiva pink, EOMI, PERRLA Ear exam: PRESENT: normal external ear exam Mouth exam: PRESENT: moist, tongue midline Neck exam: PRESENT: full ROM Respiratory exam: PRESENT: clear to auscultation franky Cardiovascular exam: PRESENT: RRR, +S1, +S2 Pulses: PRESENT: normal dorsalis pedis pul, +2 pedal pulses bilateral Vascular exam: PRESENT: normal capillary refill GI/Abdominal exam: PRESENT: normal bowel sounds, soft Rectal exam: PRESENT: deferred Neurological exam: PRESENT: alert, CN II-XII grossly intact Psychiatric exam: PRESENT: appropriate affect, normal mood Skin exam: PRESENT: dry, intact, warm. ABSENT: cyanosis, rash Results Laboratory Results: 05/13/20 21:42 05/15/20 10:33 05/15/20 10:33 Creatinine 0.54 Est GFR ( Amer) > 60 05/05/20 05/05/20 05/05/20 14:48 20:29 20:29 Creatine Kinase 30 CK-MB (CK-2) 1.12 Troponin I 0.016 NT-Pro-B Natriuret Pep 1260 H 05/06/20 05/06/20 05/06/20 03:14 03:14 09:00 Creatine Kinase 33 31 CK-MB (CK-2) 1.07 Troponin I < 0.012 NT-Pro-B Natriuret Pep 05/06/20 09:00 Creatine Kinase CK-MB (CK-2) 1.14 Troponin I < 0.012 NT-Pro-B Natriuret Pep Impressions: Chest X-Ray 05/05/20 14:16 IMPRESSION: Improved aeration in the left lung. No acute cardiopulmonary di sease. PICC Line Insertion 05/14/20 00:00 IMPRESSION: SUCCESSFUL PLACEMENT OF A 5 FR DUAL LUMEN 43 CM PICC IN THE LEFT BASILIC VEIN. 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, continue vancomycin for 6 weeks (2) MRSA (methicillin resistant Staphylococcus aureus) septicemia Is this a current diagnosis for this admission?: Yes Plan: Continue IV antibiotic (3) Essential (primary) hypertension Is this a current diagnosis for this admission?: Yes (4) UTI due to extended-spectrum beta lactamase (ESBL) producing Escherichia coli Is this a current diagnosis for this admission?: Yes Plan: on macrobid - Time Time Spent with patient: 25-34 minutes Level of Care: IMCU Medications reviewed and adjusted accordingly: Yes Anticipated discharge: SNF Anticipated DC Timeframe: Other
[2020-05-15] MEDS: LATANOPROST 0.005% OPH SOLN 2.5 ML OU SCH (21:36)
[2020-05-16] MEDS: METOPROLOL TARTRATE 50 MG TABLET PO SCH ×2 (06:47→17:47)
[2020-05-16] MEDS: VANCOMYCIN HCL 750 MG in DEXTROSE 5%-WATER 250 ML IV SCH ×2 (06:47→13:17)
[2020-05-16] MEDS: HYDROCODONE/ACETAMINOPHEN 10-325 MG TABLET PO PRN ×3 (06:49→21:20)
[2020-05-16] MEDS: FOLIC ACID 1 MG TABLET PO SCH ×4 (10:11→21:20)
[2020-05-16] MEDS: NITROFURANTOIN MONOHYD/M-CRYST 100 MG CAPSULE PO SCH ×2 (10:11→17:48)
[2020-05-16] MEDS: PANTOPRAZOLE SODIUM 40 MG TABLET.DR PO SCH (10:11)
[2020-05-16] MEDS: LOSARTAN POTASSIUM 50 MG TABLET PO SCH (10:11)
[2020-05-16] MEDS: LACTULOSE SYRUP 20 GM/30 ML UDCUP PO SCH (10:11)
[2020-05-16] MEDS: DILTIAZEM HCL 120 MG CAP.SR.24H PO SCH (10:11)
[2020-05-16] MEDS: IRON POLYSACCHARIDES COMPLEX 150 MG CAPSULE PO SCH ×4 (10:11→21:20)
[2020-05-16] MEDS: HYDROCHLOROTHIAZIDE 12.5 MG TABLET PO SCH (10:11)
[2020-05-16] MEDS: ENOXAPARIN SODIUM INJ 40 MG/0.4 ML DISP.SYRIN SUBCUT SCH (10:12)
[2020-05-16 10:19] LABS: HEMATOCRIT 35.6 % (36.0-47.0); HEMOGLOBIN 12.6 g/dL (12.0-15.5); MEAN CORPUSCULAR HEMOGLOBIN 34.8 pg (27.0-33.4); MEAN CORPUSCULAR HGB CONC 35.4 g/dL (32.0-36.0); MEAN CORPUSCULAR VOLUME 98 fl (80-97); PLATELET COUNT 400 10^3/uL (150-450); RED BLOOD COUNT 3.62 10^6/uL (3.72-5.28); RED CELL DISTRIBUTION WIDTH 14.1 % (11.5-14.0); WHITE BLOOD COUNT 10.3 10^3/uL (4.0-10.5)
[2020-05-16] MEDS: VALACYCLOVIR HCL 500 MG TABLET PO SCH (10:25)
[2020-05-16 10:40] LABS: ALBUMIN 3.4 g/dL (3.5-5.0); ALKALINE PHOSPHATASE 78 U/L (38-126); ANION GAP 9 (5-19); ASPARTATE AMINO TRANSFERASE 18 U/L (14-36); BILIRUBIN,DIRECT 0.3 mg/dL (0.0-0.4); BILIRUBIN,TOTAL 0.5 mg/dL (0.2-1.3); BLOOD UREA NITROGEN 13 mg/dL (7-20); CALCIUM 8.7 mg/dL (8.4-10.2); CARBON DIOXIDE 24 mmol/L (22-30); CHLORIDE 102 mmol/L (98-107); GLUCOSE 102 mg/dL (75-110); POTASSIUM 4.1 mmol/L (3.6-5.0); TOTAL PROTEIN 5.8 g/dL (6.3-8.2)
[2020-05-16 10:56] LABS: ABSOLUTE LYMPHOCYTES# (MANUAL) 1.5 10^3/uL (0.5-4.7); ABSOLUTE MONOCYTES # (MANUAL) 0.9 10^3/uL (0.1-1.4); BASOPHILS % (MANUAL) 0 % (0-2); EOSINOPHILS % (MANUAL) 0 % (0-6); LYMPHOCYTES % (MANUAL) 13 % (13-45); MONOCYTES % (MANUAL) 9 % (3-13); PLATELET COMMENT ADEQUATE; RBC MORPHOLOGY COMMENT NORMO-CYTIC/CHROMIC; SEGMENTED NEUTROPHILS % (MAN) 79 % (42-78); TOTAL CELLS COUNTED 100
[2020-05-16] MEDS: LATANOPROST 0.005% OPH SOLN 2.5 ML OU SCH (21:34)
--- NOTE | 2020-05-16 21:41 | PDOC PROGRESS REPORT ---
Subjective Progress Note for:: 05/16/20 Subjective:: Patient seen by the bedside, she has aortic valve endocarditis, on IV vancomycin, She wants mag citrate for constipation Reason For Visit: MRSA,SEPTICEMIA,SEPSIS Physical Exam Vital Signs: Temp Pulse Resp BP Pulse Ox 97.9 F 91 16 142/72 H 100 05/16/20 20:07 05/16/20 20:07 05/16/20 20:07 05/16/20 20:07 05/16/20 20:07 Intake & Output 05/15/20 05/16/20 05/17/20 06:59 06:59 06:59 Intake Total 1000 2054 1400 Balance 1000 2054 1400 Weight 65.4 kg 65.4 kg General appearance: PRESENT: no acute distress, well-developed, well-nourished Head exam: PRESENT: atraumatic, normocephalic Eye exam: PRESENT: conjunctiva pink, EOMI, PERRLA Ear exam: PRESENT: normal external ear exam Mouth exam: PRESENT: moist, tongue midline Neck exam: PRESENT: full ROM Respiratory exam: PRESENT: clear to auscultation franky Cardiovascular exam: PRESENT: RRR, +S1, +S2 Pulses: PRESENT: normal dorsalis pedis pul, +2 pedal pulses bilateral Vascular exam: PRESENT: normal capillary refill GI/Abdominal exam: PRESENT: normal bowel sounds, soft. ABSENT: distended, guarding, mass, organolmegaly, rebound, tenderness Rectal exam: PRESENT: deferred Neurological exam: PRESENT: alert, awake, oriented to person, oriented to place, oriented to time, oriented to situation, CN II-XII grossly intact Psychiatric exam: PRESENT: appropriate affect, normal mood Skin exam: PRESENT: dry, intact, warm. ABSENT: cyanosis, rash Results Laboratory Results: 05/16/20 09:45 05/16/20 13:15 05/16/20 05/16/20 05/16/20 09:45 09:45 13:15 WBC 10.3 RBC 3.62 L Hgb 12.6 Hct 35.6 L MCV 98 H MCH 34.8 H MCHC 35.4 RDW 14.1 H Plt Count 400 Seg Neutrophils % Not Reportable Sodium 135.2 L Potassium 4.1 Chloride 102 Carbon Dioxide 24 Anion Gap 9 BUN 13 Creatinine 0.38 L 0.43 L Est GFR ( Amer) > 60 > 60 Glucose 102 Calcium 8.7 Total Bilirubin 0.5 AST 18 Alkaline Phosphatase 78 Total Protein 5.8 L Albumin 3.4 L 05/05/20 05/05/20 05/05/20 14:48 20:29 20:29 Creatine Kinase 30 CK-MB (CK-2) 1.12 Troponin I 0.016 NT-Pro-B Natriuret Pep 1260 H 05/06/20 05/06/20 05/06/20 03:14 03:14 09:00 Creatine Kinase 33 31 CK-MB (CK-2) 1.07 Troponin I < 0.012 NT-Pro-B Natriuret Pep 05/06/20 09:00 Creatine Kinase CK-MB (CK-2) 1.14 Troponin I < 0.012 NT-Pro-B Natriuret Pep Impressions: Chest X-Ray 05/05/20 14:16 IMPRESSION: Improved aeration in the left lung. No acute cardiopulmonary disease. PICC Line Insertion 05/14/20 00:00 IMPRESSION: SUCCESSFUL PLACEMENT OF A 5 FR DUAL LUMEN 43 CM PICC IN THE LEFT BASILIC VEIN. 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, continue vancomycin for 6 weeks (2) MRSA (methicillin resistant Staphylococcus aureus) septicemia Is this a current diagnosis for this admission?: Yes Plan: Continue IV antibiotic (3) Essential (primary) hypertension Is this a current diagnosis for this admission?: Yes (4) UTI due to extended-spectrum beta lactamase (ESBL) producing Escherichia coli Is this a current diagnosis for this admission?: Yes Plan: on macrobid - Time Time Spent with patient: 25-34 minutes Level of Care: IMCU Medications reviewed and adjusted accordingly: Yes Anticipated discharge: SNF Anticipated DC Timeframe: Other
[2020-05-17] MEDS: NORMAL SALINE 1000 ML 1,000 ML IV PRN (02:04)
[2020-05-17] MEDS: VANCOMYCIN HCL 1,000 MG in DEXTROSE 5%-WATER 250 ML IV SCH ×2 (02:06→14:58)
[2020-05-17] MEDS ORDERED: VANCOMYCIN HCL 1,000 MG in DEXTROSE 5%-WATER 250 ML IV SCH (04:00)
[2020-05-17] MEDS: HYDROCODONE/ACETAMINOPHEN 10-325 MG TABLET PO PRN ×3 (04:24→22:01)
[2020-05-17] MEDS: METOPROLOL TARTRATE 50 MG TABLET PO SCH ×2 (05:05→18:10)
[2020-05-17] MEDS: MAGNESIUM HYDROXIDE SUSP 30 ML UDCUP PO PRN ×2 (05:05→10:30)
[2020-05-17] MEDS: FOLIC ACID 1 MG TABLET PO SCH ×4 (09:46→22:01)
[2020-05-17] MEDS: DILTIAZEM HCL 120 MG CAP.SR.24H PO SCH (09:46)
[2020-05-17] MEDS: PANTOPRAZOLE SODIUM 40 MG TABLET.DR PO SCH (09:46)
[2020-05-17] MEDS: LOSARTAN POTASSIUM 50 MG TABLET PO SCH (09:47)
[2020-05-17] MEDS: HYDROCHLOROTHIAZIDE 12.5 MG TABLET PO SCH (09:47)
[2020-05-17] MEDS: ENOXAPARIN SODIUM INJ 40 MG/0.4 ML DISP.SYRIN SUBCUT SCH (09:47)
[2020-05-17] MEDS: LACTULOSE SYRUP 20 GM/30 ML UDCUP PO SCH (09:48)
[2020-05-17] MEDS: NITROFURANTOIN MONOHYD/M-CRYST 100 MG CAPSULE PO SCH ×2 (10:29→18:10)
[2020-05-17] MEDS: IRON POLYSACCHARIDES COMPLEX 150 MG CAPSULE PO SCH ×4 (10:29→22:01)
[2020-05-17] MEDS: VALACYCLOVIR HCL 500 MG TABLET PO SCH (10:30)
[2020-05-17] MEDS: DICYCLOMINE HCL 20 MG TABLET PO PRN ×2 (13:53→20:11)
--- NOTE | 2020-05-17 18:22 | PDOC PROGRESS REPORT ---
Subjective Progress Note for:: 05/17/20 Subjective:: Patient seen by the bedside, she has aortic valve endocarditis, on IV vancomycin, Reason For Visit: MRSA,SEPTICEMIA,SEPSIS Physical Exam Vital Signs: Temp Pulse Resp BP Pulse Ox 98.4 F 79 16 154/62 H 99 05/17/20 12:48 05/17/20 12:48 05/17/20 12:48 05/17/20 12:48 05/17/20 12:48 Intake & Output 05/16/20 05/17/20 05/18/20 06:59 06:59 06:59 Intake Total 3055 1650 120 Balance 3055 1650 120 Weight 65.4 kg 64.4 kg General appearance: PRESENT: no acute distress Eye exam: PRESENT: PERRLA Respiratory exam: PRESENT: clear to auscultation franky Cardiovascular exam: PRESENT: +S1, +S2 GI/Abdominal exam: PRESENT: soft Neurological exam: PRESENT: alert, CN II-XII grossly intact Results Laboratory Results: 05/16/20 09:45 05/16/20 13:15 05/05/20 05/05/20 05/05/20 14:48 20:29 20:29 Creatine Kinase 30 CK-MB (CK-2) 1.12 Troponin I 0.016 NT-Pro-B Natriuret Pep 1260 H 05/06/20 05/06/20 05/06/20 03:14 03:14 09:00 Creatine Kinase 33 31 CK-MB (CK-2) 1.07 Troponin I < 0.012 NT-Pro-B Natriuret Pep 05/06/20 09:00 Creatine Kinase CK-MB (CK-2) 1.14 Troponin I < 0.012 NT-Pro-B Natriuret Pep Impressions: Chest X-Ray 05/05/20 14:16 IMPRESSION: Improved aeration in the left lung. No acute cardiopulmonary disease. PICC Line Insertion 05/14/20 00:00 IMPRESSION: SUCCESSFUL PLACEMENT OF A 5 FR DUAL LUMEN 43 CM PICC IN THE LEFT BASILIC VEIN. 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, continue vancomycin for 6 weeks (2) MRSA (methicillin resistant Staphylococcus aureus) septicemia Is this a current diagnosis for this admission?: Yes Plan: Continue IV antibiotic (3) Essential (primary) hypertension Is this a current diagnosis for this admission?: Yes (4) UTI due to extended-spectrum beta lactamase (ESBL) producing Escherichia coli Is this a current diagnosis for this admission?: Yes Plan: on macrobid - Time Time Spent with patient: 25-34 minutes Level of Care: IMCU Medications reviewed and adjusted accordingly: Yes Anticipated discharge: Home Anticipated DC Timeframe: within 72 hours
[2020-05-17] MEDS: LATANOPROST 0.005% OPH SOLN 2.5 ML OU SCH (22:02)
[2020-05-18] MEDS: VANCOMYCIN HCL 1,000 MG in DEXTROSE 5%-WATER 250 ML IV SCH ×2 (02:00→13:48)
[2020-05-18] MEDS: HYDROCODONE/ACETAMINOPHEN 10-325 MG TABLET PO PRN ×3 (03:54→21:52)
[2020-05-18] MEDS: METOPROLOL TARTRATE 50 MG TABLET PO SCH ×2 (05:06→17:37)
[2020-05-18] MEDS: NITROFURANTOIN MONOHYD/M-CRYST 100 MG CAPSULE PO SCH ×2 (09:33→17:37)
[2020-05-18] MEDS: VALACYCLOVIR HCL 500 MG TABLET PO SCH (09:33)
[2020-05-18] MEDS: IRON POLYSACCHARIDES COMPLEX 150 MG CAPSULE PO SCH ×4 (09:33→21:55)
[2020-05-18] MEDS: ENOXAPARIN SODIUM INJ 40 MG/0.4 ML DISP.SYRIN SUBCUT SCH (09:33)
[2020-05-18] MEDS: LACTULOSE SYRUP 20 GM/30 ML UDCUP PO SCH ×2 (09:33→09:42)
[2020-05-18] MEDS: LOSARTAN POTASSIUM 50 MG TABLET PO SCH (09:34)
[2020-05-18] MEDS: DILTIAZEM HCL 120 MG CAP.SR.24H PO SCH (09:34)
[2020-05-18] MEDS: PANTOPRAZOLE SODIUM 40 MG TABLET.DR PO SCH (09:34)
[2020-05-18] MEDS: HYDROCHLOROTHIAZIDE 12.5 MG TABLET PO SCH (09:34)
[2020-05-18] MEDS: FOLIC ACID 1 MG TABLET PO SCH ×4 (09:34→21:52)
[2020-05-18] MEDS: MAGNESIUM HYDROXIDE SUSP 30 ML UDCUP PO PRN (12:02)
[2020-05-18] MEDS: NORMAL SALINE 1000 ML 1,000 ML IV PRN (13:48)
--- NOTE | 2020-05-18 17:10 | PDOC PROGRESS REPORT ---
Subjective Progress Note for:: 05/18/20 Subjective:: Patient seen by the bedside, she has aortic valve endocarditis, on IV vancomycin, Reason For Visit: MRSA,SEPTICEMIA,SEPSIS Physical Exam Vital Signs: Temp Pulse Resp BP Pulse Ox 98.3 F 77 20 153/78 H 98 05/18/20 16:00 05/18/20 16:00 05/18/20 16:00 05/18/20 16:00 05/18/20 16:00 Intake & Output 05/17/20 05/18/20 05/19/20 06:59 06:59 06:59 Intake Total 1650 1730 760 Balance 1650 1730 760 Weight 64.4 kg 66.4 kg General appearance: PRESENT: no acute distress Eye exam: PRESENT: PERRLA Respiratory exam: PRESENT: clear to auscultation franky Cardiovascular exam: PRESENT: +S1, +S2 GI/Abdominal exam: PRESENT: soft Neurological exam: PRESENT: alert, CN II-XII grossly intact Results Laboratory Results: 05/16/20 09:45 05/16/20 13:15 05/05/20 05/05/20 05/05/20 14:48 20:29 20:29 Creatine Kinase 30 CK-MB (CK-2) 1.12 Troponin I 0.016 NT-Pro-B Natriuret Pep 1260 H 05/06/20 05/06/20 05/06/20 03:14 03:14 09:00 Creatine Kinase 33 31 CK-MB (CK-2) 1.07 Troponin I < 0.012 NT-Pro-B Natriuret Pep 05/06/20 09:00 Creatine Kinase CK-MB (CK-2) 1.14 Troponin I < 0.012 NT-Pro-B Natriuret Pep Impressions: Chest X-Ray 05/05/20 14:16 IMPRESSION: Improved aeration in the left lung. No acute cardiopulmonary disease. PICC Line Insertion 05/14/20 00:00 IMPRESSION: SUCCESSFUL PLACEMENT OF A 5 FR DUAL LUMEN 43 CM PICC IN THE LEFT BASILIC VEIN. 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, continue vancomycin for 6 weeks (2) MRSA (methicillin resistant Staphylococcus aureus) septicemia Is this a current diagnosis for this admission?: Yes Plan: Continue IV antibiotic (3) Essential (primary) hypertension Is this a current diagnosis for this admission?: Yes (4) UTI due to extended-spectrum beta lactamase (ESBL) producing Escherichia coli Is this a current diagnosis for this admission?: Yes Plan: on macrobid - Time Time Spent with patient: 25-34 minutes Level of Care: IMCU Medications reviewed and adjusted accordingly: Yes Anticipated discharge: Home Anticipated DC Timeframe: within 72 hours
[2020-05-18] MEDS: LATANOPROST 0.005% OPH SOLN 2.5 ML OU SCH (21:54)
[2020-05-19] MEDS: VANCOMYCIN HCL 1,000 MG in DEXTROSE 5%-WATER 250 ML IV SCH (01:26)
[2020-05-19 02:05] LABS: VANCOMYCIN,TROUGH 19.7 ug/mL (5.0-20.0)
[2020-05-19] MEDS: METOPROLOL TARTRATE 50 MG TABLET PO SCH ×2 (06:03→18:01)
[2020-05-19] MEDS: LACTULOSE SYRUP 20 GM/30 ML UDCUP PO SCH (10:02)
[2020-05-19] MEDS: VALACYCLOVIR HCL 500 MG TABLET PO SCH (10:03)
[2020-05-19] MEDS: HYDROCHLOROTHIAZIDE 12.5 MG TABLET PO SCH (10:04)
[2020-05-19] MEDS: CYANOCOBALAMIN (VITAMIN B-12) INJ 1000 MCG/1 ML VIAL IM SCH (10:04)
[2020-05-19] MEDS: NITROFURANTOIN MONOHYD/M-CRYST 100 MG CAPSULE PO SCH ×2 (10:04→18:01)
[2020-05-19] MEDS: LOSARTAN POTASSIUM 50 MG TABLET PO SCH (10:05)
[2020-05-19] MEDS: PANTOPRAZOLE SODIUM 40 MG TABLET.DR PO SCH (10:05)
[2020-05-19] MEDS: FOLIC ACID 1 MG TABLET PO SCH ×4 (10:12→21:58)
[2020-05-19] MEDS: ENOXAPARIN SODIUM INJ 40 MG/0.4 ML DISP.SYRIN SUBCUT SCH (10:12)
[2020-05-19] MEDS: DILTIAZEM HCL 120 MG CAP.SR.24H PO SCH (10:13)
[2020-05-19] MEDS: IRON POLYSACCHARIDES COMPLEX 150 MG CAPSULE PO SCH ×4 (10:13→21:58)
[2020-05-19] MEDS: HYDROCODONE/ACETAMINOPHEN 10-325 MG TABLET PO PRN ×2 (10:18→22:02)
[2020-05-19] MEDS: VANCOMYCIN HCL 500 MG in DEXTROSE 5%-WATER 100 ML IV SCH ×2 (15:00→21:57)
[2020-05-19] MEDS: LATANOPROST 0.005% OPH SOLN 2.5 ML OU SCH (22:08)
--- NOTE | 2020-05-19 22:43 | PDOC PROGRESS REPORT ---
Subjective Progress Note for:: 05/19/20 Subjective:: Patient seen by the bedside, she has aortic valve endocarditis, on IV vancomycin, Reason For Visit: MRSA,SEPTICEMIA,SEPSIS Physical Exam Vital Signs: Temp Pulse Resp BP Pulse Ox 98.4 F 72 16 133/67 H 97 05/19/20 15:12 05/19/20 15:12 05/19/20 15:12 05/19/20 15:12 05/19/20 15:12 Intake & Output 05/18/20 05/19/20 05/20/20 06:59 06:59 06:59 Intake Total 1730 1130 120 Balance 1730 1130 120 Weight 66.4 kg 66.9 kg General appearance: PRESENT: no acute distress Eye exam: PRESENT: PERRLA Respiratory exam: PRESENT: clear to auscultation franky Cardiovascular exam: PRESENT: +S1, +S2 GI/Abdominal exam: PRESENT: soft Neurological exam: PRESENT: alert Results Laboratory Results: 05/16/20 09:45 05/19/20 01:25 05/19/20 01:25 Creatinine 0.45 L Est GFR ( Amer) > 60 05/05/20 05/05/20 05/05/20 14:48 20:29 20:29 Creatine Kinase 30 CK-MB (CK-2) 1.12 Troponin I 0.016 NT-Pro-B Natriuret Pep 1260 H 05/06/20 05/06/20 05/06/20 03:14 03:14 09:00 Creatine Kinase 33 31 CK-MB (CK-2) 1.07 Troponin I < 0.012 NT-Pro-B Natriuret Pep 05/06/20 09:00 Creatine Kinase CK-MB (CK-2) 1.14 Troponin I < 0.012 NT-Pro-B Natriuret Pep Impressions: Chest X-Ray 05/05/20 14:16 IMPRESSION: Improved aeration in the left lung. No acute cardiopulmonary disease. PICC Line Insertion 05/14/20 00:00 IMPRESSION: SUCCESSFUL PLACEMENT OF A 5 FR DUAL LUMEN 43 CM PICC IN THE LEFT BASILIC VEIN. 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, continue vancomycin for 6 weeks (2) MRSA (methicillin resistant Staphylococcus aureus) septicemia Is this a current diagnosis for this admission?: Yes Plan: Continue IV antibiotic (3) Essential (primary) hypertension Is this a current diagnosis for this admission?: Yes (4) UTI due to extended-spectrum beta lactamase (ESBL) producing Escherichia coli Is this a current diagnosis for this admission?: Yes Plan: on macrobid - Time Time Spent with patient: 25-34 minutes Level of Care: IMCU Medications reviewed and adjusted accordingly: Yes Anticipated discharge: Home - Inpatient Certification Based on my medical assessment, after consideration of the patient's comorbidities, presenting symptoms, or acuity I expect that the services needed warrant INPATIENT care.: Yes I certify that my determination is in accordance with my understanding of Medicare's requirements for reasonable and necessary INPATIENT services [42 CFR 412.3e].: Yes
[2020-05-20] MEDS: NORMAL SALINE 1000 ML 1,000 ML IV PRN (02:19)
[2020-05-20] MEDS: VANCOMYCIN HCL 500 MG in DEXTROSE 5%-WATER 100 ML IV SCH ×3 (05:10→21:41)
[2020-05-20] MEDS: METOPROLOL TARTRATE 50 MG TABLET PO SCH ×2 (05:11→17:31)
[2020-05-20] MEDS: HYDROCODONE/ACETAMINOPHEN 10-325 MG TABLET PO PRN ×4 (05:15→23:18)
[2020-05-20] MEDS: IRON POLYSACCHARIDES COMPLEX 150 MG CAPSULE PO SCH ×4 (09:53→21:44)
[2020-05-20] MEDS: VALACYCLOVIR HCL 500 MG TABLET PO SCH (09:53)
[2020-05-20] MEDS: FOLIC ACID 1 MG TABLET PO SCH ×4 (09:53→21:44)
[2020-05-20] MEDS: DILTIAZEM HCL 120 MG CAP.SR.24H PO SCH (09:53)
[2020-05-20] MEDS: NITROFURANTOIN MONOHYD/M-CRYST 100 MG CAPSULE PO SCH ×2 (09:53→17:32)
[2020-05-20] MEDS: HYDROCHLOROTHIAZIDE 12.5 MG TABLET PO SCH (09:53)
[2020-05-20] MEDS: PANTOPRAZOLE SODIUM 40 MG TABLET.DR PO SCH (09:53)
[2020-05-20] MEDS: LOSARTAN POTASSIUM 50 MG TABLET PO SCH (09:54)
[2020-05-20] MEDS: ENOXAPARIN SODIUM INJ 40 MG/0.4 ML DISP.SYRIN SUBCUT SCH (09:54)
[2020-05-20] MEDS: LACTULOSE SYRUP 20 GM/30 ML UDCUP PO SCH (09:54)
[2020-05-20] MEDS: PHENYLEPHRINE HCL 1 EACH SUPP.RECT PR PRN (17:32)
--- NOTE | 2020-05-20 20:10 | PDOC PROGRESS REPORT ---
Subjective Progress Note for:: 05/20/20 Subjective:: No new complaints, patient need to be transferred to a residential home to continue administration of IV antibiotic for total of 6 weeks Reason For Visit: MRSA,SEPTICEMIA,SEPSIS Physical Exam Vital Signs: Temp Pulse Resp BP Pulse Ox 98.4 F 79 20 144/73 H 100 05/20/20 17:26 05/20/20 17:26 05/20/20 17:26 05/20/20 17:26 05/20/20 17:26 Intake & Output 05/19/20 05/20/20 05/21/20 06:59 06:59 06:59 Intake Total 1130 1320 440 Balance 1130 1320 440 Weight 66.9 kg 67.3 kg General appearance: PRESENT: no acute distress Eye exam: PRESENT: PERRLA Results Laboratory Results: 05/16/20 09:45 05/19/20 01:25 05/05/20 05/05/20 05/05/20 14:48 20:29 20:29 Creatine Kinase 30 CK-MB (CK-2) 1.12 Troponin I 0.016 NT-Pro-B Natriuret Pep 1260 H 05/06/20 05/06/20 05/06/20 03:14 03:14 09:00 Creatine Kinase 33 31 CK-MB (CK-2) 1.07 Troponin I < 0.012 NT-Pro-B Natriuret Pep 05/06/20 09:00 Creatine Kinase CK-MB (CK-2) 1.14 Troponin I < 0.012 NT-Pro-B Natriuret Pep Impressions: Chest X-Ray 05/05/20 14:16 IMPRESSION: Improved aeration in the left lung. No acute cardiopulmonary disease. PICC Line Insertion 05/14/20 00:00 IMPRESSION: SUCCESSFUL PLACEMENT OF A 5 FR DUAL LUMEN 43 CM PICC IN THE LEFT BASILIC VEIN. 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, continue vancomycin for 6 weeks (2) MRSA (methicillin resistant Staphylococcus aureus) septicemia Is this a current diagnosis for this admission?: Yes Plan: Continue IV antibiotic (3) Essential (primary) hypertension Is this a current diagnosis for this admission?: Yes (4) UTI due to extended-spectrum beta lactamase (ESBL) producing Escherichia coli Is this a current diagnosis for this admission?: Yes Plan: on macrobid - Time Time Spent with patient: 25-34 minutes Level of Care: IMCU Anticipated discharge: SNF Anticipated DC Timeframe: within 72 hours
[2020-05-20] MEDS: LATANOPROST 0.005% OPH SOLN 2.5 ML OU SCH (21:40)
[2020-05-21] MEDS: VANCOMYCIN HCL 500 MG in DEXTROSE 5%-WATER 100 ML IV SCH ×3 (06:28→22:31)
[2020-05-21] MEDS: METOPROLOL TARTRATE 50 MG TABLET PO SCH ×2 (06:29→18:20)
[2020-05-21] MEDS: DILTIAZEM HCL 120 MG CAP.SR.24H PO SCH (11:29)
[2020-05-21] MEDS: PANTOPRAZOLE SODIUM 40 MG TABLET.DR PO SCH (11:29)
[2020-05-21] MEDS: NITROFURANTOIN MONOHYD/M-CRYST 100 MG CAPSULE PO SCH (11:29)
[2020-05-21] MEDS: FOLIC ACID 1 MG TABLET PO SCH ×4 (11:29→22:30)
[2020-05-21] MEDS: LOSARTAN POTASSIUM 50 MG TABLET PO SCH (11:30)
[2020-05-21] MEDS: ENOXAPARIN SODIUM INJ 40 MG/0.4 ML DISP.SYRIN SUBCUT SCH (11:31)
[2020-05-21] MEDS: VALACYCLOVIR HCL 500 MG TABLET PO SCH (11:31)
[2020-05-21] MEDS: PHENYLEPHRINE HCL 1 EACH SUPP.RECT PR PRN (11:31)
[2020-05-21] MEDS: HYDROCHLOROTHIAZIDE 12.5 MG TABLET PO SCH (11:31)
[2020-05-21] MEDS: IRON POLYSACCHARIDES COMPLEX 150 MG CAPSULE PO SCH ×4 (11:31→22:30)
[2020-05-21] MEDS: HYDROCODONE/ACETAMINOPHEN 10-325 MG TABLET PO PRN ×3 (11:32→22:30)
[2020-05-21] MEDS: LACTULOSE SYRUP 20 GM/30 ML UDCUP PO SCH (12:02)
[2020-05-21] MEDS ORDERED: HYDROCORTISONE ACETATE 25 MG SUPP.RECT PR PRN (14:11)
[2020-05-21] MEDS ORDERED: NORMAL SALINE 10 ML SDV (AFTER EACH USE) IV PRN (14:30)
--- NOTE | 2020-05-21 18:13 | PDOC PROGRESS REPORT ---
Subjective Progress Note for:: 05/21/20 Subjective:: Patient seen by the bedside, on IV antibiotic, complain of hemorrhoids Reason For Visit: MRSA,SEPTICEMIA,SEPSIS Physical Exam Vital Signs: Temp Pulse Resp BP Pulse Ox 98.4 F 92 16 153/91 H 98 05/21/20 10:00 05/21/20 14:00 05/21/20 09:50 05/21/20 09:50 05/21/20 09:50 Intake & Output 05/20/20 05/21/20 05/22/20 06:59 06:59 06:59 Intake Total 1320 1440 Output Total 1100 Balance 1320 340 Weight 67.3 kg 67.2 kg General appearance: PRESENT: no acute distress Eye exam: PRESENT: PERRLA Respiratory exam: PRESENT: clear to auscultation franky Cardiovascular exam: PRESENT: +S1, +S2 GI/Abdominal exam: PRESENT: soft Results Laboratory Results: 05/16/20 09:45 05/21/20 01:26 05/21/20 01:26 Creatinine 0.47 L Est GFR ( Amer) > 60 05/05/20 05/05/20 05/05/20 14:48 20:29 20:29 Creatine Kinase 30 CK-MB (CK-2) 1.12 Troponin I 0.016 NT-Pro-B Natriuret Pep 1260 H 05/06/20 05/06/20 05/06/20 03:14 03:14 09:00 Creatine Kinase 33 31 CK-MB (CK-2) 1.07 Troponin I < 0.012 NT-Pro-B Natriuret Pep 05/06/20 09:00 Creatine Kinase CK-MB (CK-2) 1.14 Troponin I < 0.012 NT-Pro-B Natriuret Pep Impressions: Chest X-Ray 05/05/20 14:16 IMPRESSION: Improved aeration in the left lung. No acute cardiopulmonary disease. PICC Line Insertion 05/14/20 00:00 IMPRESSION: SUCCESSFUL PLACEMENT OF A 5 FR DUAL LUMEN 43 CM PICC IN THE LEFT BASILIC VEIN. 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, continue vancomycin for 6 weeks (2) MRSA (methicillin resistant Staphylococcus aureus) septicemia Is this a current diagnosis for this admission?: Yes Plan: Continue IV antibiotic (3) Essential (primary) hypertension Is this a current diagnosis for this admission?: Yes (4) UTI due to extended-spectrum beta lactamase (ESBL) producing Escherichia coli Is this a current diagnosis for this admission?: Yes Plan: on macrobid - Time Time Spent with patient: 25-34 minutes Level of Care: IMCU Medications reviewed and adjusted accordingly: Yes Anticipated discharge: Home
[2020-05-21] MEDS: NORMAL SALINE 1000 ML 1,000 ML IV PRN (18:50)
[2020-05-21] MEDS: NORMAL SALINE 10 ML SDV (SCHEDULED) IV SCH (22:31)
[2020-05-21] MEDS: LATANOPROST 0.005% OPH SOLN 2.5 ML OU SCH (22:31)
[2020-05-22] MEDS: VANCOMYCIN HCL 500 MG in DEXTROSE 5%-WATER 100 ML IV SCH ×3 (05:43→21:35)
[2020-05-22] MEDS: MAGNESIUM HYDROXIDE SUSP 30 ML UDCUP PO PRN ×2 (05:43→14:00)
[2020-05-22] MEDS: HYDROCODONE/ACETAMINOPHEN 10-325 MG TABLET PO PRN ×4 (05:43→20:07)
[2020-05-22] MEDS: METOPROLOL TARTRATE 50 MG TABLET PO SCH ×2 (05:43→18:38)
[2020-05-22 06:36] LABS: VANCOMYCIN,TROUGH 17.2 ug/mL (5.0-20.0)
[2020-05-22] MEDS: ENOXAPARIN SODIUM INJ 40 MG/0.4 ML DISP.SYRIN SUBCUT SCH (10:00)
[2020-05-22] MEDS: IRON POLYSACCHARIDES COMPLEX 150 MG CAPSULE PO SCH ×4 (10:01→21:34)
[2020-05-22] MEDS: FOLIC ACID 1 MG TABLET PO SCH ×4 (10:01→21:34)
[2020-05-22] MEDS: HYDROCHLOROTHIAZIDE 12.5 MG TABLET PO SCH (10:01)
[2020-05-22] MEDS: LOSARTAN POTASSIUM 50 MG TABLET PO SCH (10:01)
[2020-05-22] MEDS: PANTOPRAZOLE SODIUM 40 MG TABLET.DR PO SCH (10:02)
[2020-05-22] MEDS: DILTIAZEM HCL 120 MG CAP.SR.24H PO SCH (10:02)
[2020-05-22] MEDS: VALACYCLOVIR HCL 500 MG TABLET PO SCH (10:02)
[2020-05-22] MEDS: LACTULOSE SYRUP 20 GM/30 ML UDCUP PO SCH (10:46)
[2020-05-22] MEDS: NORMAL SALINE 10 ML SDV (SCHEDULED) IV SCH ×2 (11:48→21:34)
--- NOTE | 2020-05-22 20:10 | PDOC TRANSFER SUMMARY ---
Impression - Admit/DC Date/PCP Admission Date/Primary Care Provider: 05/05/20 17:53 ARACELI CORTEZ MD Discharge Date: 05/23/20 - Discharge Diagnosis (1) Aortic valve endocarditis Is this a current diagnosis for this admission?: Yes (2) MRSA (methicillin resistant Staphylococcus aureus) septicemia Is this a current diagnosis for this admission?: Yes (3) Essential (primary) hypertension Is this a current diagnosis for this admission?: Yes (4) UTI due to extended-spectrum beta lactamase (ESBL) producing Escherichia coli Is this a current diagnosis for this admission?: Yes - Additional Information Referrals: ARACELI CORTEZ MD [Primary Care Provider] - 06/02/20 1:45 pm Home Medications: Albuterol Sulfate [Proair HFA Inhalation Aerosol 8.5 gm MDI] 2 puff IH Q6HP PRN 12/26/18 Cyanocobalamin (Vitamin B-12) [Vitamin B-12 Inj 1000 Mcg/1 ml Vial] 1 ml IM MO@1000 12/26/18 Dexlansoprazole [Dexilant 60 mg Capsule] 60 mg PO DAILY 12/26/18 Diltiazem HCl [Cardizem Cd 120 mg Capsule] 120 mg PO DAILY 05/03/19 Bimatoprost [Lumigan 0.01% Oph Soln 2.5 ml/Bottle] 1 drop OU QHS 09/17/19 Iron Ps Complex/B12/Folic Acid [Ferrex 150 Forte Capsule] 1 cap PO QID 09/17/19 Triamcinolone Acetonide [Aristocort 0.5% Cream 15 gm] 1 applic TOP Q12 tube 09/19/19 Dicyclomine HCl [Bentyl 20 mg Tablet] 20 mg PO Q6HP PRN 04/28/20 Lactulose [Enulose] 30 ml PO DAILY 04/28/20 Losartan/Hydrochlorothiazide [Hyzaar 100-12.5 Tablet] 1 tab PO DAILY 04/28/20 Metoprolol Tartrate [Lopressor 50 mg Tablet] 50 mg PO Q12 04/28/20 Valacyclovir HCl [Valtrex 500 mg Tablet] 1,000 mg PO DAILY 04/28/20 Dicyclomine HCl [Bentyl 20 mg Tablet] 20 mg PO Q6HP PRN tablet 05/22/20 Hydrocortisone Acetate [Anusol Hc 25 mg Supp.rect] 25 mg CA BIDP PRN supp.rect 05/22/20 Latanoprost [Xalatan 0.005% Oph Soln 2.5 ml] 1 drop OU QHS bottle 05/22/20 Magnesium Hydroxide [Milk of Magnesia 30 ml Udcup] 30 ml PO Q6HP PRN udc 05/22/20 Vancomycin HCl [Vancocin Inj 500 mg Vial] 500 mg IV Q8 vial 05/22/20 History of Present Illiness History of Present Illness: MICHAEL CAMEJO is a 69 year old female She is extremely noncompliant, she left AGAINST MEDICAL ADVICE on May 02, 2020, she was recently admitted on April 28, 2020 when she presented to the emergency room with multiple complaints at that time, The complaints include back pain, chronic back pain which was exacerbated when she fell on April 11, 2020 with decreasing difficulty ambulating. After she fell she was essentially bedbound crawling, the last time she was admitted she had tremendous swelling including bilateral lower extremity edema with multiple areas of bruises involving both lower extremities, a transthoracic echocardiogram was obtained that demonstrated preserved ejection fraction with mild diastolic dysfunction of left ventricle.The day before she left AGAINST MEDICAL ADVICE she was found to have leukocytosis with low-grade fever there was no potential sources apparently identified she was empirically Started on IV antibiotic for presumptive UTI. Sepsis work-up was ensued including blood culture urine culture, the day she left AGAINST MEDICAL ADVICE, The blood culture returned as methicillin resistant staph aureus attempt was made to contact patient without success. My understanding is that Adult Protective Services is involved in her case,, the adult protective service made her return to the emergency room . Hospital Course Hospital Course: Patient was admitted for the management of MRSA septicemia complicated with MRSA aortic valve endocarditis and also ESBL E. coli UTI. Initially she was treated with intravenous clindamycin for MRSA septicemia, the MRSA that was cultured from the blood was sensitive to clindamycin, there was also MRSA culture in the urine, because MRSA is not a typical uropathogen it was felt that the MRSA in the urine is a manifestation of a distant source, a trans-esophageal echocardiogram was obtained it confirmed aortic valve carditis. The clindamycin was change to IV vancomycin, she will continue IV vancomycin for a total of 6 weeks. The ESBL E. coli UTI was treated with Macrobid the ESBL E. coli was sensitive to Macrobid and also to the carbapenem.She will continue vancomycin until July 05, 2020 Physical Exam Vital Signs: Temp Pulse Resp BP Pulse Ox 98.8 F 80 18 135/75 H 98 05/22/20 16:00 05/22/20 16:00 05/22/20 16:00 05/22/20 16:00 05/22/20 16:00 Intake & Output 05/21/20 05/22/20 05/23/20 06:59 06:59 06:59 Intake Total 1440 1000 Output Total 1100 Balance 340 1000 Weight 67.2 kg 67.2 kg 67.2 kg General appearance: PRESENT: no acute distress Eye exam: PRESENT: PERRLA Respiratory exam: PRESENT: clear to auscultation franky Cardiovascular exam: PRESENT: +S1, +S2 Neurological exam: PRESENT: alert Results Laboratory Results: WBC 10.3 10^3/uL (4.0-10.5) 05/16/20 09:45 RBC 3.62 10^6/uL (3.72-5.28) L 05/16/20 09:45 Hgb 12.6 g/dL (12.0-15.5) 05/16/20 09:45 Hct 35.6 % (36.0-47.0) L 05/16/20 09:45 MCV 98 fl (80-97) H 05/16/20 09:45 MCH 34.8 pg (27.0-33.4) H 05/16/20 09:45 MCHC 35.4 g/dL (32.0-36.0) 05/16/20 09:45 RDW 14.1 % (11.5-14.0) H 05/16/20 09:45 Plt Count 400 10^3/uL (150-450) 05/16/20 09:45 Lymph % (Auto) Not Reportable 05/16/20 09:45 Bollinger % (Auto) Not Reportable 05/16/20 09:45 Eos % (Auto) Not Reportable 05/16/20 09:45 Baso % (Auto) Not Reportable 05/16/20 09:45 Absolute Neuts (auto) Not Reportable 05/16/20 09:45 Absolute Lymphs (auto) Not Reportable 05/16/20 09:45 Absolute Monos (auto) Not Reportable 05/16/20 09:45 Absolute Eos (auto) Not Reportable 05/16/20 09:45 Absolute Basos (auto) Not Reportable 05/16/20 09:45 Total Counted 100 05/16/20 09:45 Seg Neutrophils % Not Reportable 05/16/20 09:45 Seg Neuts % (Manual) 79 % (42-78) H 05/16/20 09:45 Band Neutrophils % 1 % (3-5) L 05/07/20 04:54 Lymphocytes % (Manual) 13 % (13-45) 05/16/20 09:45 Atypical Lymphs % 2 % (0) 05/16/20 09:45 Monocytes % (Manual) 9 % (3-13) 05/16/20 09:45 Eosinophils % (Manual) 0 % (0-6) 05/16/20 09:45 Basophils % (Manual) 0 % (0-2) 05/16/20 09:45 Promyelocytes % 1 % (0) H 05/08/20 06:14 Abs Neuts (Manual) 8.1 10^3/uL (1.7-8.2) 05/16/20 09:45 Abs Lymphs (Manual) 1.5 10^3/uL (0.5-4.7) 05/16/20 09:45 Abs Monocytes (Manual) 0.9 10^3/uL (0.1-1.4) 05/16/20 09:45 Absolute Eos (Manual) 0.0 10^3/uL (0.0-0.6) 05/16/20 09:45 Abs Basophils (Manual) 0.0 10^3/uL (0.0-0.2) 05/16/20 09:45 Platelet Comment ADEQUATE 05/16/20 09:45 Polychromasia SLIGHT 05/08/20 06:14 Poikilocytosis SLIGHT 05/07/20 04:54 Anisocytosis SLIGHT 05/08/20 06:14 Macrocytosis SLIGHT 05/07/20 04:54 Tear Drop Cells SLIGHT 05/07/20 04:54 RBC Morph Comment NORMO-CYTIC/CHROMIC 05/16/20 09:45 PT 13.4 SEC (11.4-15.4) 05/05/20 20:29 INR 1.00 05/05/20 20:29 APTT 28.1 SEC (23.5-35.8) 05/05/20 20:29 Carbonic Acid 1.03 mmol/L (1.05-1.35) L 05/05/20 15:40 HCO3/H2CO3 Ratio 22:1 05/05/20 15:40 ABG pH 7.45 (7.35-7.45) 05/05/20 15:40 ABG pCO2 34.3 mmHg (35-45) L 05/05/20 15:40 ABG pO2 86.7 mmHg (80-100) 05/05/20 15:40 ABG HCO3 23.5 mmol/L (20-24) 05/05/20 15:40 ABG Total CO2 24.6 mmol/L (21-25) 05/05/20 15:40 ABG O2 Saturation 97.0 % (94-98) 05/05/20 15:40 ABG Base Excess 0.6 mmol/L 05/05/20 15:40 FiO2 ROOM AIR 05/05/20 15:40 Sodium 135.2 mmol/L (137-145) L 05/16/20 09:45 Potassium 4.1 mmol/L (3.6-5.0) 05/16/20 09:45 Chloride 102 mmol/L (98-107) 05/16/20 09:45 Carbon Dioxide 24 mmol/L (22-30) 05/16/20 09:45 Anion Gap 9 (5-19) 05/16/20 09:45 BUN 13 mg/dL (7-20) 05/16/20 09:45 Creatinine 0.47 mg/dL (0.52-1.25) L 05/21/20 01:26 Est GFR ( Amer) > 60 (>60) 05/21/20 01:26 Est GFR (MDRD) Non-Af > 60 (>60) 05/21/20 01:26 Glucose 102 mg/dL (75-110) 05/16/20 09:45 Hemoglobin A1c % 5.7 % (4.7-6.0) 05/06/20 03:14 Lactic Acid 1.7 mmol/L (0.7-2.1) 05/05/20 20:29 Calcium 8.7 mg/dL (8.4-10.2) 05/16/20 09:45 Phosphorus 3.5 mg/dL (2.5-4.5) 05/05/20 20:29 Magnesium 2.3 mg/dL (1.6-2.3) 05/05/20 20:29 Total Bilirubin 0.5 mg/dL (0.2-1.3) 05/16/20 09:45 Direct Bilirubin 0.3 mg/dL (0.0-0.4) 05/16/20 09:45 Neonat Total Bilirubin Not Reportable 05/16/20 09:45 Neonat Direct Bilirubin Not Reportable 05/16/20 09:45 Neonat Indirect Bili Not Reportable 05/16/20 09:45 AST 18 U/L (14-36) 05/16/20 09:45 ALT 18 U/L (<35) 05/16/20 09:45 Alkaline Phosphatase 78 U/L (38-126) 05/16/20 09:45 Ammonia < 8.7 umol/L (9-33) L 05/05/20 20:29 Creatine Kinase 31 U/L (30-135) 05/06/20 09:00 CK-MB (CK-2) 1.14 ng/mL (<4.55) 05/06/20 09:00 Troponin I < 0.012 ng/mL 05/06/20 09:00 NT-Pro-B Natriuret Pep 1260 pg/mL (<125) H 05/05/20 14:48 Total Protein 5.8 g/dL (6.3-8.2) L 05/16/20 09:45 Albumin 3.4 g/dL (3.5-5.0) L 05/16/20 09:45 Triglycerides 62 mg/dL (<150) 05/06/20 03:14 Cholesterol 155.39 mg/dL (0-200) 05/06/20 03:14 LDL Cholesterol Direct 103 mg/dL (<100) H 05/06/20 03:14 VLDL Cholesterol 12.0 mg/dL (10-31) 05/06/20 03:14 HDL Cholesterol 48 mg/dL (>40) 05/06/20 03:14 Amylase < 30 U/L (30-110) L 05/05/20 20:29 Lipase 33.1 U/L (23-300) 05/05/20 20:29 TSH 2.03 uIU/mL (0.47-4.68) 05/05/20 20:29 Free T4 1.00 ng/dL (0.78-2.19) 05/05/20 20:29 Urine Color YELLOW 05/05/20 20:20 Urine Appearance CLOUDY 05/05/20 20:20 Urine pH 6.0 (5.0-9.0) 05/05/20 20:20 Ur Specific Marshall 1.016 05/05/20 20:20 Urine Protein 30 mg/dL (NEGATIVE) H 05/05/20 20:20 Urine Glucose (UA) 50 mg/dL (NEGATIVE) H 05/05/20 20:20 Urine Ketones NEGATIVE mg/dL (NEGATIVE) 05/05/20 20:20 Urine Blood SMALL (NEGATIVE) H 05/05/20 20:20 Urine Nitrite NEGATIVE (NEGATIVE) 05/05/20 20:20 Urine Nitrite (Reflex) NEGATIVE (NEGATIVE) 05/05/20 13:50 Urine Bilirubin NEGATIVE (NEGATIVE) 05/05/20 20:20 Urine Urobilinogen NEGATIVE mg/dL (<2.0) 05/05/20 20:20 Ur Leukocyte Esterase LARGE (NEGATIVE) H 05/05/20 20:20 Leukocyte Esterase Rfl SMALL (NEGATIVE) H 05/05/20 13:50 Urine WBC (Auto) 11 /HPF 05/05/20 20:20 Urine RBC (Auto) 4 /HPF 05/05/20 20:20 U Hyaline Cast (Auto) 1 /LPF 05/05/20 20:20 Urine Bacteria (Auto) 3+ /HPF 05/05/20 20:20 Urine WBC (Reflex) 15 /HPF 05/05/20 13:50 Squamous Epi Cells Auto 4 /HPF 05/05/20 20:20 Urine Mucus (Auto) RARE /LPF 05/05/20 20:20 Urine Ascorbic Acid NEGATIVE (NEGATIVE) 05/05/20 20:20 Time Trough Drawn 0525 05/22/20 05:25 Vancomycin Trough 17.2 ug/mL (5.0-20.0) 05/22/20 05:25 Urine Opiates Screen UNCONFIRMED POSITIVE 05/05/20 20:20 Urine Methadone Screen NEGATIVE 05/05/20 20:20 Ur Barbiturates Screen NEGATIVE 05/05/20 20:20 Ur Phencyclidine Scrn NEGATIVE 05/05/20 20:20 Ur Amphetamines Screen NEGATIVE 05/05/20 20:20 U Benzodiazepines Scrn NEGATIVE 05/05/20 20:20 Urine Cocaine Screen NEGATIVE 05/05/20 20:20 U Marijuana (THC) Screen NEGATIVE 05/05/20 20:20 SARS-CoV-2 (PCR) NEGATIVE (NEGATIVE) 05/21/20 17:00 Slides for Path Review PATHOLOGIST REVIEWED 05/08/20 06:14 05/05/20 05/05/20 05/06/20 14:48 20:29 03:14 CK-MB (CK-2) 1.12 1.07 Troponin I 0.016 < 0.012 NT-Pro-B Natriuret Pep 1260 H 05/06/20 09:00 CK-MB (CK-2) 1.14 Troponin I < 0.012 NT-Pro-B Natriuret Pep Impressions: Chest X-Ray 05/05/20 14:16 IMPRESSION: Improved aeration in the left lung. No acute cardiopulmonary disease. PICC Line Insertion 05/14/20 00:00 IMPRESSION: SUCCESSFUL PLACEMENT OF A 5 FR DUAL LUMEN 43 CM PICC IN THE LEFT BASILIC VEIN. Stroke Is this a Stroke Patient?: No Acute Heart Failure Is this a Heart Failure Patient?: No
[2020-05-22] MEDS: LATANOPROST 0.005% OPH SOLN 2.5 ML OU SCH (21:35)
[2020-05-23] MEDS: HYDROCODONE/ACETAMINOPHEN 10-325 MG TABLET PO PRN ×2 (01:08→09:35)
[2020-05-23] MEDS: VANCOMYCIN HCL 500 MG in DEXTROSE 5%-WATER 100 ML IV SCH (05:54)
[2020-05-23] MEDS: METOPROLOL TARTRATE 50 MG TABLET PO SCH (05:54)
[2020-05-23 09:06] VITALS: BP 178/84
[2020-05-23] MEDS: PANTOPRAZOLE SODIUM 40 MG TABLET.DR PO SCH (09:34)
[2020-05-23] MEDS: IRON POLYSACCHARIDES COMPLEX 150 MG CAPSULE PO SCH (09:34)
[2020-05-23] MEDS: HYDROCHLOROTHIAZIDE 12.5 MG TABLET PO SCH (09:34)
[2020-05-23] MEDS: FOLIC ACID 1 MG TABLET PO SCH (09:34)
[2020-05-23] MEDS: LOSARTAN POTASSIUM 50 MG TABLET PO SCH (09:34)
[2020-05-23] MEDS: VALACYCLOVIR HCL 500 MG TABLET PO SCH (09:34)
[2020-05-23] MEDS: DILTIAZEM HCL 120 MG CAP.SR.24H PO SCH (09:34)
[2020-05-23] MEDS: NORMAL SALINE 10 ML SDV (SCHEDULED) IV SCH (09:35)
[2020-05-23] MEDS: ENOXAPARIN SODIUM INJ 40 MG/0.4 ML DISP.SYRIN SUBCUT SCH (09:35)
[2020-05-23] MEDS: LACTULOSE SYRUP 20 GM/30 ML UDCUP PO SCH (09:38)
== END 2020-05-23 13:44 | DRG 872 ==
LOC: ER 13:32 → EH 17:53 → 3S 22:28 → 5 05-14 16:10
PROVIDERS: ADMIT Internal Medicine; ATTEND Internal Medicine
PROC: B24BZZ4 Ultrasonography of Heart with Aorta, Transesophageal (ICD-10-PCS; principal; 2020-05-13 12:30)
PROC: 02HV33Z Insertion of Infusion Device into Superior Vena Cava, Percutaneous Approach (ICD-10-PCS; 2020-05-14)
PROC: B518ZZA Fluoroscopy of Superior Vena Cava, Guidance (ICD-10-PCS; 2020-05-14)
PROC: B548ZZA Ultrasonography of Superior Vena Cava, Guidance (ICD-10-PCS; 2020-05-14)
DX: A41.02 Sepsis due to Methicillin resistant Staphylococcus aureus (principal); Z16.12 Extended spectrum beta lactamase (ESBL) resistance; N30.00 Acute cystitis without hematuria; Z03.818 Encounter for observation for suspected exposure to other biological agents ruled out; I35.8 Other nonrheumatic aortic valve disorders; I10 Essential (primary) hypertension; B96.20 Unspecified Escherichia coli [E. coli] as the cause of diseases classified elsewhere; K21.9 Gastro-esophageal reflux disease without esophagitis; F32.9 Major depressive disorder, single episode, unspecified; D64.9 Anemia, unspecified; Z60.2 Problems related to living alone; F41.9 Anxiety disorder, unspecified; Z79.899 Other long term (current) drug therapy; Z91.19 Patient's noncompliance with other medical treatment and regimen; Z88.6 Allergy status to analgesic agent; Z88.3 Allergy status to other anti-infective agents; Z88.0 Allergy status to penicillin; Z88.2 Allergy status to sulfonamides; Z90.49 Acquired absence of other specified parts of digestive tract
CPT/HCPCS: 1922; 36415; 36573; 71046; 80053; 80061; 80202; 80307; 81001; 82140; 82150; 82550; 82553; 82565; 82803; 83036; 83605; 83690; 83735; 83880; 84100; 84439; 84443; 84484; 85025; 85610; 85730; 87040; 87086; 87088; 87186; 87635; 93005; 93010; 93312; 93325; 96365; 96366; 96375; 99291; C9803; J1642; J1650; J1956; J2270; J2704; J3370; J3420; J3490; J7030; J7060; J8499

== ENCOUNTER 2020-05-28 02:16 | Emergency (ER) | payer MEDICARE, MEDICAID ==
[2020-05-28] MEDS ORDERED: ONDANSETRON HCL INJ/PF 4 MG/2 ML SDV IV ONE (06:05)
[2020-05-28] MEDS ORDERED: MORPHINE SULFATE 10 MG/ML INJ IV ONE (06:05)
--- NOTE | 2020-05-28 06:06 | ER Document Report ---
ED GI Bleed / Rectal Pain - General Mode of Arrival: Medic Information source: Patient TRAVEL OUTSIDE OF THE [place] IN LAST 30 DAYS: No <MARKOS MORENO - Last Filed: 05/28/20 07:56> <STVEEN KAMARA - Last Filed: 05/28/20 10:05> - General Chief Complaint: Hemorrhoids Stated Complaint: HEMORROIDS Time Seen by Provider: 05/28/20 05:20 Primary Care Provider: TAWANDA MIR MD [Primary Care Provider] - Follow up as needed Notes: 69-year-old female past medical history significant for hypertension, degenerative disc disease, diverticulitis, IBS, Crohn's presents to the emergency room complaining of worsening hemorrhoids for the past 2 weeks. Abdominal pain for the past 2-1/2 weeks. Nausea without vomiting. States she ran a fever for 1 day 10 days ago. States has been taking Bentyl and [place] back without relief. States she has been able to care for herself secondary to all her pain. States she is been unable to control her bowels. Denies any blood in her stool. States currently does not have any pain medication. Per nurses notes EMS is at her house several times a day. (MARKOS MORENO) - Related Data Allergies/Adverse Reactions: aspirin Allergy (Severe, Verified 05/28/20 08:41) Anaphylaxis Penicillins Allergy (Severe, Verified 05/28/20 08:41) Anaphylaxis hydrocodone [From Vicodin] Allergy (Intermediate, Verified 05/28/20 08:41) Anaphylaxis Sulfa (Sulfonamide Antibiotics) Allergy (Intermediate, Verified 05/28/20 08:41) iching, nausea codeine Allergy (Mild, Verified 05/28/20 08:41) Diarrhea meperidine HCl [From Demerol] Allergy (Mild, Verified 05/28/20 08:41) heart palpitations ciprofloxacin Adverse Reaction (Verified 05/28/20 08:41) NAUSEA, ITCHING Past Medical History - General Information source: Patient - Social History Smoking Status: Never Smoker Chew tobacco use (# tins/day): No Frequency of alcohol use: None Drug Abuse: None Family History: Reviewed & Not Pertinent, Arthritis, CAD, CVA, DM, Hyperlipidemia, Hypertension, Malignancy, Thyroid Disfunction Patient has homicidal ideation: No - Past Medical History Cardiac Medical History: Reports: Hx Hypertension Denies: Hx Congestive Heart Failure, Hx Heart Attack Pulmonary Medical History: Reports: Hx Asthma, Hx Bronchitis, Hx Pneumonia Denies: Hx COPD, Hx Tuberculosis Neurological Medical History: Denies: Hx Seizures, Hx Parkinson's Disease Renal/ Medical History: Denies: Hx End Stage Renal Disease, Hx Peritoneal Dialysis GI Medical History: Reports: Hx Crohn's Disease, Hx Diverticulitis, Hx Gastroesophageal Reflux Disease, Hx Hiatal Hernia, Hx Irritable Bowel. Denies: Hx Cirrhosis, Hx Hepatitis Musculoskeletal Medical History: Reports Hx Arthritis, Reports Hx Musculoskeletal Deformity, Reports Hx Musculoskeletal Trauma Psychiatric Medical History: Reports: Hx Anxiety, Hx Depression Denies: Hx Bipolar Disorder Infectious Medical History: Denies: Hx Hepatitis Past Surgical History: Reports: Hx Abdominal Surgery - small intestine removal, Hx Appendectomy, Hx Bowel Surgery - small intestine, Hx Breast Surgery - biopsy, Hx Hysterectomy, Hx Neurologic Surgery - brain tumor removed, Hx Tonsillectomy. Denies: Hx Mastectomy, Hx Pacemaker - Immunizations Immunizations up to date: Yes Hx Diphtheria, Pertussis, Tetanus Vaccination: Yes - 09/2010 Hx Pneumococcal Vaccination: 08/24/10 <MARKOS MORENO - Last Filed: 05/28/20 07:56> Review of Systems - Review of Systems Constitutional: Fever EENT: No symptoms reported Cardiovascular: No symptoms reported Respiratory: No symptoms reported Gastrointestinal: Abdominal pain, Nausea, Vomiting, Other - Hemorrhoids Musculoskeletal: No symptoms reported Skin: No symptoms reported Neurological/Psychological: No symptoms reported -: Yes All other systems reviewed and negative <MARKOS MORENO - Last Filed: 05/28/20 07:56> Physical Exam - General General appearance: Appears well, Alert In distress: Mild - Respiratory Respiratory status: No respiratory distress Chest status: Nontender Breath sounds: Normal Chest palpation: Normal - Cardiovascular Rhythm: Regular Heart sounds: Normal auscultation Murmur: No Friction rub: No - Abdominal Inspection: Normal Distension: No distension Bowel sounds: Normal Tenderness: Nontender Organomegaly: No organomegaly - Rectal Hemorrhoids: External - Neurological Neuro grossly intact: Yes Cognition: Normal Orientation: AAOx4 Ogden Coma Scale Eye Opening: Spontaneous Ogden Coma Scale Verbal: Oriented Ogden Coma Scale Motor: Obeys Commands Ji Coma Scale Total: 15 Speech: Normal - Psychological Associated symptoms: Normal affect, Normal mood - Skin Skin Temperature: Warm Skin Moisture: Dry Skin Color: Normal <MARKOS MORENO - Last Filed: 05/28/20 07:56> - Vital signs Vitals: BP 143/115 H 05/28/20 02:32 - Rectal Notes: External buttock area is erythematous with external hemorrhoid noted. It is nonthrombosed. It is nonbleeding. There is tender to palpation. (MARKOS MORENO) Course - Laboratory Result Diagrams: 05/28/20 06:45 05/28/20 06:45 <MARKOS MORENO - Last Filed: 05/28/20 07:56> - Laboratory Result Diagrams: 05/28/20 06:45 05/28/20 06:45 <STEVEN KAMARA - Last Filed: 05/28/20 10:05> - Re-evaluation Re-evalutation: 05/28/20 07:18 MDM Patient with worsening chronic abdominal pain, hemorrhoids, not able to care for self at home. Labs, CT, medications ordered, case management consult initiated. Patient may need to become a social hold for placement. 05/28/20 07:56 Patient's resting comfortably with decreased pain. CT and labs pending. Care transferred to [facility] provider Steven Kamara, nurse practitioner (MARKOS MORENO) 05/28/20 09:57 Report had been received on the patient at change of shift. CT does not show acute findings. Patient has a small urinary infection. Patient is in no significant distress at this time. Awaiting consultation from case management about the patient. Patient's blood pressure is elevated but she had not yet received the labetalol. Will make sure patient is taking her blood pressure medications at home. Will place patient on antibiotics she may be discharged home pending case management approval (STEVEN KAMARA) - Vital Signs Vital signs: Temp Pulse Resp BP Pulse Ox 98.2 F 82 18 179/112 H 100 05/28/20 02:35 05/28/20 02:39 05/28/20 02:39 05/28/20 07:01 05/28/20 07:01 - Laboratory Laboratory results interpreted by me: 05/28/20 05/28/20 05/28/20 06:45 06:45 08:17 WBC 11.2 H MCV 98 H MCH 35.2 H RDW 14.9 H Plt Count 467 H Seg Neuts % (Manual) 81 H Lymphocytes % (Manual) 8 L Abs Neuts (Manual) 9.4 H Potassium 3.5 L Creatinine 0.51 L Glucose 69 L Urine Ketones 20 H Urine Blood MODERATE H Ur Leukocyte Esterase LARGE H Discharge <MARKOS MORENO - Last Filed: 05/28/20 07:56> <STEVEN KAMARA - Last Filed: 05/28/20 10:05> - Discharge Clinical Impression: Abdominal pain Qualifiers: Abdominal location: generalized Qualified Code(s): R10.84 - Generalized abdominal pain Hemorrhoid Qualifiers: Hemorrhoid type: unspecified Qualified Code(s): K64.9 - Unspecified hemorrhoids UTI (urinary tract infection) Qualifiers: Urinary tract infection type: acute cystitis Hematuria presence: without hematuria Qualified Code(s): N30.00 - Acute cystitis without hematuria HTN (hypertension) Qualifiers: Hypertension type: essential hypertension Qualified Code(s): I10 - Essential (primary) hypertension Condition: Stable Disposition: HOME, SELF-CARE Additional Instructions: Make sure you are taking your blood pressure medications at home. Take the Macrobid to treat the urinary infection. Use the Anusol suppositories to treat the hemorrhoids. You need to follow-up with your primary care provider for any narcotic pain medications that you will require for your abdominal pain as this is an ongoing issue. Take MiraLAX for constipation Prescriptions: Hydrocortisone Acetate [Anusol Hc 25 mg Supp.rect] 1 supp.rect VA BID #14 sup p.rect Nitrofurantoin Monohyd/M-Cryst [Macrobid 100 mg Capsule] 100 mg PO BID #14 cap Polyethylene Glycol 3350 [Miralax] 1 cap PO DAILY #527 powder Referrals: TAWANDA MIR MD [Primary Care Provider] - Follow up as needed
[2020-05-28 07:14] LABS: HEMATOCRIT 36.8 % (36.0-47.0); HEMOGLOBIN 13.2 g/dL (12.0-15.5); MEAN CORPUSCULAR HEMOGLOBIN 35.2 pg (27.0-33.4); MEAN CORPUSCULAR HGB CONC 35.9 g/dL (32.0-36.0); MEAN CORPUSCULAR VOLUME 98 fl (80-97); PLATELET COUNT 467 10^3/uL (150-450); RED BLOOD COUNT 3.75 10^6/uL (3.72-5.28); RED CELL DISTRIBUTION WIDTH 14.9 % (11.5-14.0); WHITE BLOOD COUNT 11.2 10^3/uL (4.0-10.5)
[2020-05-28 07:32] LABS: ABSOLUTE LYMPHOCYTES# (MANUAL) 1.2 10^3/uL (0.5-4.7); ABSOLUTE MONOCYTES # (MANUAL) 0.4 10^3/uL (0.1-1.4); BAND NEUTROPHILS % (MANUAL) 3 % (3-5); BASOPHILS % (MANUAL) 1 % (0-2); EOSINOPHILS % (MANUAL) 0 % (0-6); LYMPHOCYTES % (MANUAL) 8 % (13-45); MONOCYTES % (MANUAL) 4 % (3-13); SEGMENTED NEUTROPHILS % (MAN) 81 % (42-78); TOTAL CELLS COUNTED 100
[2020-05-28 07:34] LABS: ALBUMIN 3.8 g/dL (3.5-5.0); ALKALINE PHOSPHATASE 68 U/L (38-126); ANION GAP 13 (5-19); ANISOCYTOSIS SLIGHT; ASPARTATE AMINO TRANSFERASE 25 U/L (14-36); BILIRUBIN,DIRECT 0.3 mg/dL (0.0-0.4); BILIRUBIN,TOTAL 0.7 mg/dL (0.2-1.3); BLOOD UREA NITROGEN 11 mg/dL (7-20); CALCIUM 9.4 mg/dL (8.4-10.2); CARBON DIOXIDE 24 mmol/L (22-30); CHLORIDE 102 mmol/L (98-107); PLATELET COMMENT INCREASED; POTASSIUM 3.5 mmol/L (3.6-5.0); TOTAL PROTEIN 6.6 g/dL (6.3-8.2)
[2020-05-28 07:37] LABS: GLUCOSE 69 mg/dL (75-110)
[2020-05-28] MEDS ORDERED: LABETALOL HCL INJ 20 MG/4 ML DISP.SYRIN IV ONE ×2 (08:02→11:00)
[2020-05-28 08:36] LABS: APPEARANCE,URINE SLIGHTLY-CLOUDY; BILIRUBIN,URINE NEGATIVE (NEGATIVE); COLOR,URINE YELLOW; GLUCOSE, URINE NEGATIVE (NEGATIVE); KETONES,URINE 20 mg/dL (NEGATIVE); LEUKOCYTE ESTERASE,URINE LARGE (NEGATIVE); NITRITE,URINE NEGATIVE (NEGATIVE); PROTEIN,URINE NEGATIVE (NEGATIVE); URINE SPECIFIC GRAVITY 1.008; UROBILINOGEN,URINE NEGATIVE mg/dL (<2.0)
--- NOTE | 2020-05-28 09:31 | RADIOLOGY REPORT (SQ) ---
EXAM DESCRIPTION: CT ABD/PELVIS WITH IV ONLY IMAGES COMPLETED DATE/TIME: 05/28/2020 9:01 am REASON FOR STUDY: hemorrhoid pain COMPARISON: None. TECHNIQUE: CT scan of the abdomen and pelvis performed using helical scanning technique with dynamic intravenous contrast injection. No oral contrast. Images reviewed with lung, soft tissue, and bone windows. Reconstructed coronal and sagittal MPR images reviewed. Delayed images for evaluation of the urinary system also acquired. All images stored on PACS. All CT scanners at this facility use dose modulation, iterative reconstruction, and/or weight based d osing when appropriate to reduce radiation dose to as low as reasonably achievable (ALARA). [facility]: Dose Right [facility]: CareDose [facility]: Dose Right [facility]: Teradose 4D [facility]: [employer] CONTRAST TYPE AND DOSE: contrast/concentration: Isovue 350.00 mmol/ml; Total Contrast Delivered: 62. 0 ml; Total Saline Delivered: 40.0 ml RENAL FUNCTION: BUN 11; creatinine 0.51 RADIATION DOSE: CT Rad equipment meets quality standard of care and radiation dose reduction techniq ues were employed. CTDIvol: 6.4 - 8.6 mGy. DLP: 900 mGy-cm.. LIMITATIONS: None. FINDINGS: LOWER CHEST: No significant findings. No nodules or infiltrates. LIVER: Normal size. No masses. No dilated ducts. SPLEEN: Scattered calcified granulomas. No focal mass. PANCREAS: No masses. No significant calcifications. No adjacent inflammation or peripancreatic fluid collections. Pancreatic duct not dilated. GALLBLADDER: No identified stones by CT criteria. No inflammatory changes to suggest cholecystitis. ADRENAL GLANDS: No significant masses or asymmetry. RIGHT KIDNEY AND URETER: No solid masses. No significant calcifications. No hydronephrosis or hyd roureter. LEFT KIDNEY AND URETER: No solid masses. No significant calcifications. No hydronephrosis or hydr oureter. AORTA AND VESSELS: No aneurysm. No dissection. Renal arteries, SMA, celiac without stenosis. RETROPERITONEUM: No retroperitoneal adenopathy, hemorrhage or masses. BOWEL AND PERITONEAL CAVITY: Scattered colonic diverticula without focal inflammatory changes. Mildl y prominent rectal stool burden. Small bowel is grossly unremarkable. APPENDIX: Surgically absent. PELVIS: No mass. No free fluid. Normal bladder. ABDOMINAL WALL: No masses. No hernias. BONES: No significant or acute findings. OTHER: No other significant finding. IMPRESSION: Diverticulosis without at diverticulitis. Prominent rectal stool burden. Other chronic and incidental findings as detailed above. TECHNICAL DOCUMENTATION: JOB ID: [id number] Quality ID # [id number]: Final reports with documentation of one or more dose reduction techniques (e.g., Au tomated exposure control, adjustment of the mA and/or kV according to patient size, use of iterative reconstruction technique) 2010 [employer]- All Rights Reserved Reading location - IP/workstation name: [email or web address]
[2020-05-28] MEDS ORDERED: NITROFURANTOIN MONOHYD/M-CRYST 100 MG CAPSULE PO ONE (09:59)
[2020-05-28] MEDS ORDERED: LOSARTAN POTASSIUM 50 MG TABLET PO ONE (10:01)
[2020-05-28] MEDS ORDERED: HYDROCHLOROTHIAZIDE 25 MG TABLET PO ONE (10:01)
[2020-05-28] MEDS ORDERED: HYDROCHLOROTHIAZIDE 12.5 MG TABLET PO ONE (10:02)
[2020-05-28 12:54] VITALS: BP 158/89
== END 2020-05-28 12:30 | disposition home or self-care (01) ==
LOC: ER 02:16
DX: K64.9 Unspecified hemorrhoids (principal); N30.00 Acute cystitis without hematuria; G89.29 Other chronic pain; R10.84 Generalized abdominal pain; R50.9 Fever, unspecified; R11.2 Nausea with vomiting, unspecified; I10 Essential (primary) hypertension; Z88.6 Allergy status to analgesic agent; Z88.0 Allergy status to penicillin; Z88.2 Allergy status to sulfonamides
CPT/HCPCS: 99285; 96374; 96375; 36415; 87086; 85025; 87088; 80053; 81001; 74177; A9270 ×3; J3490; J2270; J2405; 87186; J8499